=== PATIENT | female | born 1970 | race Caucasian/White ===

== ENCOUNTER 2018-09-02 14:58 | Emergency (ER) | payer MEDICAID, SELFPAY ==
[2018-09-02 15:15] VITALS: BP 137/78; PULSE 80; RESP 20; TEMP 37; O2SAT 97
[2018-09-02 15:48] VITALS: RESP 18
--- NOTE | 2018-09-02 16:22 | ED.GENADUL_ITS ---
Discharge Plan Disposition Patient Disposition: AGAINST MEDICAL ADVICE Condition: Stable Discharge Details Chief Complaint: GenMedical Clinical Impression: Hyperglycemia, Bronchitis, URI (upper respiratory infection) Primary Care Provider: Marni Doan ED Provider: Mayi Todd Home Meds and New Rx's Prescriptions: New doxycycline hyclate 100 mg capsule 100 mg PO BID 7 Days Qty: 14 RF: 0 blood-glucose meter [FreeStyle Lite Meter] kit .ROUTE .MEDSUPPLY Qty: 1 RF: 0 Continue epinephrine [EpiPen 2-Tejinder] 0.3 MG/0.3 ML auto-injector 0.3 mg IM ONCE Qty: 1 RF: 1 albuterol sulfate 2.5 MG/3 ML solution for nebulization 2.5 mg Inhalation TID PRNQty: 100 RF: 2 insulin aspart U-100 [Novolog Flexpen U-100 Insulin] 100 unit/mL insulin pen 5 unit subcut TID Qty: 2 RF: 2 insulin glargine [Lantus Solostar U-100 Insulin] 100 unit/mL (3 mL) insulin pen 38 unit subcut HS Qty: 2 RF: 2 lancets [FreeStyle Lancets] 28 gauge misc 1 ea Miscellaneous QID Qty: 100 RF: 4 omeprazole 20 mg capsule,delayed release(DR/EC) 20 mg PO DAILY Qty: 30 RF: 1 pen needle, diabetic 31 gauge x 1/3 needle 1 ea Miscellaneous QID Qty: 100 RF: 2 blood sugar diagnostic [Blood Glucose Test] strip 1 ea Miscellaneous qid and PRNQty: 400 RF: 4 acetaminophen [Tylenol] 325 MG tablet 650 mg PO PRN PRNRF: 0 methadone 10 MG/ML concentrate 60 mg PO DAILY RF: 0 fluticasone [Flonase Allergy Relief] 9.9 ML spray,suspension 9.9 ml NS DAILY Qty: 1 RF: 0 promethazine 25 MG tablet 25 mg PO Q6H PRNQty: 10 RF: 0 Discharge Instructions Instructions: Upper Respiratory Infection (ED), Acute Bronchitis (ED), Diabetic Hyperglycemia (ED) Additional Instructions: You are leaving against medical advice. You can from complications related to very high blood sugar. You need to drink plenty of water and take your diabetes medications and check your sugar regularly. Take the antibiotics until finished. Use the inhaler as needed and directed. Call your primary doctor tomorrow to schedule a follow up appointment for re- evaluation. Return immediately to the emergency department with any worsening or new concerning symptoms. Discharge Data Discharge Date/Time-TO BE ENTERED AT DEPARTURE: 09/02/18 17:03 Discharge Physician: Mayi Todd Medical Decision Making 48-year-old female with history of diabetes type 2, COPD, schizophrenia, previous narcotic and opiate use on methadone who presents for sore throat for 2 days, cough with green sputum, and difficulty concentrating and fatigue. Male friend concerned about patient's blood sugar and states it was 400 the other day. Patient states she lost her glucometer. Will check an Accu-Chek. Rapid strep negative. Fingerstick glucose 527. Vitals within normal limits. Discussed with patient that due to her high blood sugar, would recommend IV, IV fluids, labs, urinalysis. Patient is refusing this at this time and would like to go home. The risks of and disability due to DKA or HHS explained to patient and she fully understands and would still like to leave. Pt demonstrates capacity to make decisions and appears clinically sober at this time. Patient is declining any meds, labs or imaging. Patient states she would like antibiotics for her symptoms and specifically doxycycline. She states she also ran out of her inhaler. Dose of doxycycline and inhaler given for home as well as prescription for doxycycline and a new glucometer. Patient instructed to follow-up with her primary care doctor for reevaluation in the next 2 days and to return here immediately with any worsening symptoms. HPI General Mode of arrival: ambulatory . Date/Time Provider Initiated Documentation: 09/02/18 15:20 . Limitations to Documentation: no limitations . Information obtained by: patient . HPI Narrative: Pt is a 48-year-old female with a history of diabetes, COPD, schizophrenia, anxiety, depression and previous narcotic and opiate drug use, currently on methadone who presents to the ED with a complaint of sore throat for 2 days. Also complaining of difficulty thinking for 2-3 weeks, and generalized weakness over the past 2 days. Admits to pain with swallowing. Patient denies any fever and states she has been drinking normally but eating less than usual. She has been taking Motrin, Tylenol and aspirin for pain. She also admits to cough with green sputum. She states her last admission to the hospital was 3 months ago for DKA and subsequently she has had short-term memory loss since then. Her male friend also stated he was concerned about her sugar as it is usually in the 150s and was 400 on Sunday. Related Data Home Medications Medication Instructions Recorded Confirmed epinephrine [EpiPen 2-Tejinder] 0.3 mg IM ONCE #1 pen 04/01/13 acetaminophen [Tylenol] 650 mg PO PRN PRN 04/16/15 01/29/18 methadone 60 mg PO DAILY 06/09/15 01/29/18 albuterol sulfate 2.5 mg INHALATION TID PRN #100 vial 12/28/16 fluticasone [Flonase Allergy 9.9 ml NS DAILY #1 spray.susp 12/17/17 01/29/18 Relief] promethazine 25 mg PO Q6H PRN #10 tab 01/29/18 insulin aspart U-100 100 unit/mL 5 unit SUBCUT TID #2 box 06/14/18 subcutaneous pen insulin glargine (U-100) 100 38 unit SUBCUT HS #2 box 06/14/18 unit/mL (3 mL) subcutaneous pen blood sugar diagnostic strips #400 strip 08/30/18 lancets 28 gauge #100 each 08/30/18 omeprazole 20 mg capsule,delayed 20 mg PO DAILY #30 cap 08/30/18 release pen needle, diabetic 31 gauge x #100 ea 08/30/1809/26 blood-glucose meter [FreeStyle #1 each 09/02/18 Lite Meter kit] doxycycline hyclate 100 mg PO BID 7 Days #14 cap 09/02/18 Previous Rx's Medication Instructions Recorded fluticasone [Flonase Allergy 9.9 ml NS DAILY #1 spray.susp 12/17/17 Relief] promethazine 25 mg PO Q6H PRN #10 tab 01/29/18 insulin aspart U-100 100 unit/mL 5 unit SUBCUT TID #2 box 06/14/18 subcutaneous pen insulin glargine (U-100) 100 38 unit SUBCUT HS #2 box 06/14/18 unit/mL (3 mL) subcutaneous pen blood sugar diagnostic strips #400 strip 08/30/18 lancets 28 gauge #100 each 08/30/18 omeprazole 20 mg capsule,delayed 20 mg PO DAILY #30 cap 08/30/18 release pen needle, diabetic 31 gauge x #100 ea 08/30/18 1/3 blood-glucose meter [FreeStyle #1 each 09/02/18 Lite Meter kit] doxycycline hyclate 100 mg PO BID 7 Days #14 cap 09/02/18 Allergies Allergy/AdvReac Type Severity Reaction Status Date / Time venom-honey bee Allergy Intermediate Unverified 01/29/18 02:27 [bee venom (honey bee)] Sulfa (Sulfonamide Allergy Rash & Unverified 01/29/18 02:27 Antibiotics) Shortness of Breath hydroxyzine HCl AdvReac Intermediate nausea/vomiting, Unverified 01/29/18 02:27 [From Vistaril] palpitations General Stated Complaint: GenMedical LAURIE: 3 Review of Systems Review of Systems All systems reviewed & are unremarkable except as noted in HPI and below Constitutional Reports as per HPI, Denies chills, Reports fatigue, Denies fever(s) and Reports weakness Eyes Denies blurry vision ENT Denies dizziness, Reports sore throat and Denies throat swelling Cardiovascular Denies chest pain and Denies dyspnea Respiratory Denies dyspnea Gastrointestinal Denies abdominal pain, Denies diarrhea and Denies vomiting Genitourinary Denies hematuria and Denies dysuria Musculoskeletal Denies back pain and Denies numbness Integumentary/Breasts Denies lesions and Denies rash Neurologic Denies dizziness, Denies numbness and Reports weakness Endocrine Reports fatigue Allergic/Immunologic Denies throat swelling PFSH Hyperlipemia (Acute) PTSD (post-traumatic stress disorder) (Acute) Anxiety (Chronic) COPD (chronic obstructive pulmonary disease) (Chronic) Depression (Chronic) Diabetes (Chronic) Schizophrenia (Chronic) Medical History Hyperlipemia (Acute) PTSD (post-traumatic stress disorder) (Acute) Anxiety (Chronic) COPD (chronic obstructive pulmonary disease) (Chronic) Depression (Chronic) Diabetes (Chronic) Schizophrenia (Chronic) Social History Smoking/Tobacco Use Status: Current every day Social History Smoking/Tobacco Use Status: Current every day alcohol intake: current alcohol intake frequency: 3 or more drinks per day substance use type: crack/cocaine and heroin Exam Const General: cooperative and no acute distress Orientation: alert, awake and oriented x3 HENMT Head: normal to inspection Ears: hearing grossly normal bilaterally, external ears normal and TM's normal bilaterally General nose exam: external nose normal Face and sinus: normal facial exam Mouth: oral mucosae normal Teeth and gingiva: dentition normal Throat: posterior oropharynx normal Eyes General: appearance normal, both eyes and all related structures Eyelids: eyelids normal Pupils: PERRL EOM: EOM intact bilaterally Neck Neck: normal visual inspection Lymphatic: no lymphadenopathy noted Chest Chest: normal inspection of the chest Resp Effort & Inspection: normal respiratory effort and able to speak in complete sentences Auscultation: clear to auscultation bilaterally Cardio Rate: regular rate Rhythm: regular rhythm GI Inspection: normal to inspection Palpation: soft, not firm, no guarding, no hepatosplenomegaly, no masses and nontender Auscultation: normal bowel sounds Skin General skin exam: no rashes or lesions noted Neuro General: alert and awake Cognition: normal cognition Speech: speech normal Gait: normal gait Motor: muscle tone normal throughout Sensory Exam: no sensory deficits noted Extrem General: normal to inspection, full ROM, normal capillary refill and no edema Psych Appearance: grossly normal Mental Status: mental status grossly normal Speech and Movement: speech and movement normal Affect: normal affect Thought Process: normal Course Vital Signs Temperature 98.6 F 09/02/18 15:15 Pulse 80 09/02/18 15:15 Respiratory Rate 20 09/02/18 15:15 Blood Pressure 137/78 09/02/18 15:15 Pulse Oximetry 97 09/02/18 15:15 Temperature 98.6 F 09/02/18 15:15 Temperature Source Temporal Artery Scan 09/02/18 15:15 Pulse 80 09/02/18 15:15 Respiratory Rate 18 09/02/18 15:48 Respiratory Effort Non-Labored 09/02/18 15:48 Respiratory Depth Normal 09/02/18 15:48 Respiratory Pattern Normal 09/02/18 15:48 Blood Pressure 137/78 09/02/18 15:15 Blood Pressure Position Sitting 09/02/18 15:15 Pulse Oximetry 97 09/02/18 15:15 Pain Level 8 09/02/18 15:15 Lab/Test Results Lab/Test Results: 09/02/18 15:50 Pharynx Streptococcus Screen ([facility]) - Pending POC Strep Test-[facility](Rapid) Start: 09/02/18 15: 50 Freq: Status: Active Protocol: Document 09/02/18 15:50 CDG (Rec: 09/02/18 15:50 CDG [id number]) Strep test-[facility](Rapid)-POC POC-Strep test-[facility] (Rapid) Negative POC-Strep test-[facility] (Rapid) Negative
[2018-09-02] MEDS: Albuterol HFA 8 GM 60 PUFF INH IH (17:00)
[2018-09-02] MEDS: Doxycycline Hyclate 100 MG CAP PO (17:00)
== END 2018-09-02 17:03 | disposition left against medical advice (07) ==
PROVIDERS: Emergency Provider Physician Assistant; PCP Family Medicine
DX: E11.65 Type 2 diabetes mellitus with hyperglycemia (principal); Z79.4 Long term (current) use of insulin; J20.9 Acute bronchitis, unspecified; J06.9 Acute upper respiratory infection, unspecified; Z53.29 Procedure and treatment not carried out because of patient's decision for other reasons; J44.9 Chronic obstructive pulmonary disease, unspecified; F17.210 Nicotine dependence, cigarettes, uncomplicated; E11.9 Type 2 diabetes mellitus without complications
CPT/HCPCS: 36416; 82962; 87880; 99283; 87081

== ENCOUNTER 2018-09-13 09:06 | Outpatient (CLI) | payer MEDICAID, SELFPAY | END 2018-09-13 09:26 | PROVIDERS: PCP Family Medicine; Visit Provider Nurse Practitioner Family | DX: E11.65 Type 2 diabetes mellitus with hyperglycemia (principal); Z79.4 Long term (current) use of insulin | CPT/HCPCS: 36415; 83036 ==

== ENCOUNTER 2018-10-01 07:32 | Emergency (ER) | payer MEDICAID, SELFPAY ==
[2018-10-01 07:42] VITALS: BP 141/90; PULSE 68; RESP 16; TEMP 37; O2SAT 97
--- NOTE | 2018-10-01 09:01 | W.ED.GENAD ---
Discharge Plan Disposition Patient Disposition: HOME Condition: Improving Discharge Details Chief Complaint: PsychEval Clinical Impression: Anxiety, Diabetes mellitus, type II Primary Care Provider: Marni Doan ED Provider: Vincenzo Burns Home Meds and New Rx's Prescriptions: Continued Lantus Solostar U-100 Insulin 100 unit/mL (3 mL) insulin pen 38 unit SC .QHS Qty: 15 RF: 3 Blood Glucose Test strip 1 ea Miscellaneous qid and PRNQty: 400 RF: 4 epinephrine [EpiPen 2-Tejinder] 0.3 MG/0.3 ML auto-injector 0.3 mg IM ONCE Qty: 1 RF: 1 albuterol sulfate 2.5 MG/3 ML solution for nebulization 2.5 mg Inhalation TID PRNQty: 100 RF: 2 Novolog Flexpen U-100 Insulin 100 unit/mL insulin pen 5 unit subcut TID Qty: 2 RF: 2 Lantus Solostar U-100 Insulin 100 unit/mL (3 mL) insulin pen 38 unit subcut HS Qty: 2 RF: 2 lancets [FreeStyle Lancets] 28 gauge misc 1 ea Miscellaneous QID Qty: 100 RF: 4 omeprazole 20 mg capsule,delayed release(DR/EC) 20 mg PO DAILY Qty: 30 RF: 1 pen needle, diabetic 31 gauge x 1/3 needle 1 ea Miscellaneous QID Qty: 100 RF: 2 acetaminophen [Tylenol] 325 MG tablet 650 mg PO PRN PRNRF: 0 methadone 10 MG/ML concentrate 50 mg PO DAILY RF: 0 fluticasone [Flonase Allergy Relief] 9.9 ML spray,suspension 9.9 ml NS DAILY Qty: 1 RF: 0 promethazine 25 MG tablet 25 mg PO Q6H PRNQty: 10 RF: 0 blood-glucose meter [FreeStyle Lite Meter] kit .ROUTE .MEDSUPPLY Qty: 1 RF: 0 Discharge Instructions Instructions: Anxiety (ED) Additional Instructions: Please followup with [facility], [facility] as disucssed with Mrs. Argueta. Return for worsening anxiety or any other concerns. Continue all medications including your prescribed insulin. Your glucose has been well controlled. Medical Decision Making 40-year-old male states she is concerned with the spirits in her home. She is been anxious regarding this over weeks time. She does not feel depressed, she is not a thoughts of hurting herself or hurting others. She is not having command hallucinations. She recently became integrated into the [employer]. She states that when she moved into her new apartment she noticed signs of the occult including skeletons in the [place]. She been taking her medications. Her glucose has been under control. She underwent medical screening examination and was seen by social work in the emergency department and referred to [facility] and [facility]. HPI General Mode of arrival: ambulatory. Date/Time Provider Initiated Documentation: 10/01/18 08:11. Limitations to Documentation: no limitations. Information obtained by: patient. History of Present Illness 48 year old F presents to the emergency department with the chief complaint of Anxiety about returning to home, described as moderate, Quality is described as constant, Patient started experiencing this day(s) and it has been constant. No relieving factors improve symptom(s), No exacerbating factors reported . Patient notes no other symptoms.. Patient did receive the following treatments prior to arrival, none Related Data Home Medications Medication Instructions Recorded Confirmed epinephrine [EpiPen 2-Tejinder] 0.3 mg IM ONCE #1 pen 04/01/13 10/01/18 acetaminophen [Tylenol] 650 mg PO PRN PRN 04/16/15 10/01/18 methadone 50 mg PO DAILY 06/09/15 10/01/18 albuterol sulfate 2.5 mg INHALATION TID PRN #100 vial 12/28/16 10/01/18 fluticasone [Flonase Allergy 9.9 ml NS DAILY #1 spray.susp 12/17/17 10/01/18 Relief] promethazine 25 mg PO Q6H PRN #10 tab 01/29/18 10/01/18 insulin aspart U- 100 100 unit/mL 5 unit SUBCUT TID #2 box 06/14/18 10/01/18 subcutaneous pen insulin glargine (U-100) 100 38 unit SUBCUT HS #2 box 06/14/18 10/01/18 unit/mL (3 mL) subcutaneous pen lancets 28 gauge #100 each 08/30/18 omeprazole 20 mg capsule,delayed 20 mg PO DAILY #30 cap 08/30/18 10/01/18 release pen needle, diabetic 31 gauge x #100 ea 08/30/1809/26 blood-glucose meter [FreeStyle #1 each 09/02/18 Lite Meter] blood sugar diagnostic strips #400 strip 09/13/18 09/13/18 insulin glargine (U-100) 100 38 unit SC .QHS #15 ml 09/13/18 10/01/18 unit/mL (3 mL) subcutaneous pen Previous Rx's Medication Instructions Recorded fluticasone [Flonase Allergy 9.9 ml NS DAILY #1 spray.susp 12/17/17 Relief] promethazine 25 mg PO Q6H PRN #10 tab 01/29/18 insulin aspart U- 100 100 unit/mL 5 unit SUBCUT TID #2 box 06/14/18 subcutaneous pen insulin glargine (U-100) 100 38 unit SUBCUT HS #2 box 06/14/18 unit/mL (3 mL) subcutaneous pen lancets 28 gauge #100 each 08/30/18 omeprazole 20 mg capsule,delayed 20 mg PO DAILY #30 cap 08/30/18 release pen needle, diabetic 31 gauge x #100 ea 08/30/1809/26 blood-glucose meter [FreeStyle #1 each 09/02/18 Lite Meter] blood sugar diagnostic strips #400 strip 09/13/18 insulin glargine (U-100) 100 38 unit SC .QHS #15 ml 09/13/18 unit/mL (3 mL) subcutaneous pen Allergies Allergy/AdvReac Type Severity Reaction Status Date / Time venom-honey bee Allergy Intermediate Unverified 10/01/18 07:47 [bee venom (honey bee)] Sulfa (Sulfonamide Allergy Rash & Unverified 10/01/18 07:47 Antibiotics) Shortness of Breath hydroxyzine HCl AdvReac Intermediate nausea/vomiting, Unverified 10/01/18 07:47 [From Vistaril] palpitations General Stated Complaint: PsychEval LAURIE: 3 Review of Systems Review of Systems 6 systems reviewed and otherwise - [facility] Medical History Hyperlipemia (Acute) PTSD (post-traumatic stress disorder) (Acute) Anxiety (Chronic) COPD (chronic obstructive pulmonary disease) (Chronic) Depression (Chronic) Diabetes (Chronic) Schizophrenia (Chronic) Social History Smoking/Tobacco Use Status: Current every day alcohol intake: current alcohol intake frequency: 3 or more drinks per day substance use type: crack/cocaine and heroin Exam Narrative Exam Narrative: GEN: awake, alert, oriented 3. Pleasant, well groomed, interactive. HEAD: Normocephalic, atraumatic ENT: Mucous membranes moist, oropharynx unremarkable, External ear exam unremarkable EYES: PERRL, EOMI NECK: Full ROM, no REZA, no menigismus CHEST/RESP: Nontender, clear to auscultation bilateral, no wheeze/rhonchi/rales CARDIOVASCULAR: RRR, no murmur, rub bebo. 2+ Rad pulse bilateral ABDOMEN: Soft, nontender, no mass. +Bowel sounds EXT: Full ROM, no edema, no rash Neuro: Grossly normal neurologic exam, conversant, interactive. Psych: Speech fluent, thoughts congruent, affect anxious Course Vital Signs Temperature 37 C 10/01/18 07:42 Pulse 68 10/01/18 07:42 Respiratory Rate 16 10/01/18 07:42 Blood Pressure 141/90 H 10/01/18 07:42 Pulse Oximetry 97 10/01/18 07:42 Temperature 37 C 10/01/18 07:42 Temperature Source Skin 10/01/18 07:42 Pulse 68 10/01/18 07:42 Respiratory Rate 16 10/01/18 07:42 Respiratory Effort 10/01/18 07:42 Blood Pressure 141/90 H 10/01/18 07:42 Blood Pressure Position Sitting 10/01/18 07:42 Pulse Oximetry 97 10/01/18 07:42 Oxygen Delivery Method Room Air 10/01/18 07:42 Oxygen Flow Rate 0 10/01/18 07:42 Pain Level 0 10/01/18 07:42 Lab/Test Results Lab/Test Results: Laboratory Tests Range/Units 10/01/18 08:21 Glucose Cancelled
--- NOTE | 2018-10-01 10:00 | PDOC.ERCMPRO ---
Care Management Progress Note 10/01-Dr. Burns requested assistance with Josefina and housing. Met with Josefina. Josefina states that there are spirits living in her home and that they sometimes get on her head. She has had part of the apartment cleansed but needs to have the whole apartment done. Josefina showed this CM pictures on her phone of the creatures that were on her head at one point. This one has teeth and there is another one right beside it. Josefina shares with this CM that she lost her son in October from an overdose and she is still grieving him. She tears up when she talks about him. Josefina stated that she would like different housing while she is getting her apartment cleansed of the spirits as she is afraid to be there while the spirits are still there. Recommended that Josefina meet with someone at [facility] as well as [facility] for housing assistance. Discussed above with Loree, Chronic Fire Warden at [facility], PCP is Dr. Doan, and she requested that Josefina call [facility] for an appointment with Jonny the Behavioral Health Specialist for which was discussed with Josefina. Josefina was discharged from the ED and headed over to [facility]. Josefina has this CM's contact information if further assistance is needed.
--- NOTE | 2018-10-01 10:33 | CMPROGNOTE_ITS ---
Care Management Progress Note 10/01-Dr. Burns requested assistance with Josefina and housing. Met with Josefina. Josefina states that there are spirits living in her home and that they sometimes get on her head. She has had part of the apartment cleansed but needs to have the whole apartment done. Josefina showed this CM pictures on her phone of the creatures that were on her head at one point. This one has teeth and there is another one right beside it. Josefina shares with this CM that she lost her son in October from an overdose and she is still grieving him. She tears up when she talks about him. Josefina stated that she would like different housing while she is getting her apartment cleansed of the spirits as she is afraid to be there while the spirits are still there. Recommended that Josefina meet with someone at [facility] as well as [facility] for housing assistance. Discussed above with Loree, Chronic Food And Beverage Server at [facility], PCP is Dr. Doan, and she requested that Josefina call [facility] for an appointment with Jonny the Behavioral Health Specialist for which was discussed with Josefina. Josefina was discharged from the ED and headed over to [facility]. Josefina has this CM's contact information if further assistance is needed.
== END 2018-10-01 09:41 | disposition home or self-care (01) ==
PROVIDERS: Emergency Provider Emergency Medicine; PCP Family Medicine
DX: F41.9 Anxiety disorder, unspecified (principal); E11.9 Type 2 diabetes mellitus without complications; J44.9 Chronic obstructive pulmonary disease, unspecified; F17.210 Nicotine dependence, cigarettes, uncomplicated
CPT/HCPCS: 36416; 82947; 82962; 99282

== ENCOUNTER 2018-10-16 11:27 | Outpatient (CLI) | payer MEDICAID, SELFPAY ==
[2018-10-16 13:38] LABS: ALT 22 U/L (12-78); AST 20 U/L (15-37); Albumin 3.1 g/dL (3.4-5.0); Alkaline Phosphatase 83 U/L (46-116); Anion Gap 6.1 mmol/L (3-11); BUN 13 mg/dL (7-18); Bilirubin, Total 0.4 mg/dL (0.2-1.0); CO2 32.9 mmol/L (21.0-32.0); CREATININE 0.93 mg/dL (0.55-1.02); Calcium 9.1 mg/dL (8.5-10.1); Chloride 100 mmol/L (98-107); Cholesterol 258 mg/dL (50-200); Glucose 325 mg/dL (70-100); HDL Cholesterol 42 mg/dL (40-60); LDL CHOLESTEROL 154 mg/dL (<100); Potassium 4.5 mmol/L (3.5-5.1); Sodium 139 mmol/L (136-145); Total Protein 6.6 g/dL (6.4-8.2); Triglyceride 331 mg/dL (30-150)
[2018-10-16 13:50] LABS: Hemoglobin A1C 11.4 % (4.5-6.2)
[2018-10-16 13:52] LABS: COMMENT (LAB VIEW ONLY) 95.91 mg/dL; Microalb ug/mg Crea 11.8 ug/mg Cr
== END 2018-10-16 11:47 ==
PROVIDERS: PCP Family Medicine; Visit Provider Family Medicine
DX: E11.9 Type 2 diabetes mellitus without complications (principal); Z79.4 Long term (current) use of insulin
CPT/HCPCS: 36415; 80053; 80061; 83721; 82043; 82570; 83036

== ENCOUNTER 2018-10-26 07:33 | Emergency (ER) | payer MEDICAID, SELFPAY ==
[2018-10-26 07:24] VITALS: BP 163/97; PULSE 66; RESP 18; TEMP 36.6; O2SAT 95
--- NOTE | 2018-10-26 07:33 | DI.CT_ITS ---
SYMPTOM/DIAGNOSIS: ABD PAIN, NAUSEA, VOMITING ABDOMEN AND PELVIC CT: There are no prior comparison exams. Images were performed from the lung bases through the ischial tuberosities after IV and without oral contrast. The lung bases are clear. The liver, gallbladder, spleen, adrenals and kidneys are unremarkable. The pancreas is extremely atrophic. There is mild dilatation of the common bile duct at 10 mm. No obstructing stone or mass is seen. There is a moderate quantity of stool. There is question of wall thickening of the rectum focally versus contraction. The bladder, uterus and ovaries are unremarkable. There is no small bowel dilatation. Muscular atrophy is seen involving the abdominal wall as well as paraspinal and gluteal musculature. There is a fatty containing hernia just above the umbilicus. The aorta is normal in diameter. IMPRESSION: Fatty containing umbilical hernia. Mild dilatation of the common bile duct.
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
[2018-10-26 07:58] LABS: HCO3 (Venous) 33 mmol/L (22-28); O2 Sat (Venous) 41 % (70-80); TCO2 (Venous) 30 mmol/L (22-29); pCO2 (Venous) 63 mm/Hg (34-47); pH (Venous) 7.33 (7.32-7.43); pO2 (Venous) 24 mm/Hg (28-44)
[2018-10-26 08:03] LABS: Absolute Basophil Count 0.01 k/cumm (0.0-0.2); Absolute Eosinophil Count 0.09 k/cumm (0.0-0.7); Absolute Lymphocyte Count 1.47 k/cumm (1.2-3.4); Absolute Monocyte Count 0.24 k/cumm (0.11-0.7); Absolute Neutrophil Count 2.34 k/cumm (1.2-6.7); Basophils % 0.2; Eosinophils % 2.2; HCT 43.7 % (36.0-46.0); HGB 14.3 g/dL (12.0-15.5); Lymphocytes % 35.4; Mean Corp. HGB Concentration 32.7 g/dL (32.0-36.0); Mean Corpuscular Hemoglobin 27.4 pg (27.0-33.0); Mean Corpuscular Volume 83.9 fL (80-95); Mean Platelet Volume 9.8 fL (8.0-11.0); Monocytes % 5.8; Neutrophils % 56.4; Platelet Count 268 x1000/uL (130-400); RBC 5.21 m/cumm (4.00-5.20); RBC Distribution Width 14.1 % (11.7-14.6); White Blood Cell Count 4.15 k/cumm (4.4-10.8)
[2018-10-26 08:27] LABS: Bilirubin Negative (Negative); Blood Negative (Negative); Clarity Clear; Glucose 250 mg/dL (Negative); Ketones 15 mg/dL (Negative); Leukocyte Esterase Negative (Negative); Nitrite Negative (Negative); Specific Gravity 1.015 (1.005-1.025); pH 7.5 (5-8)
[2018-10-26 08:31] LABS: ALT 22 U/L (12-78); AST 23 U/L (15-37); Albumin 3.8 g/dL (3.4-5.0); Alkaline Phosphatase 86 U/L (46-116); Anion Gap 7.8 mmol/L (3-11); BUN 12 mg/dL (7-18); Bilirubin, Direct 0.25 mg/dL (0.00-0.20); Bilirubin, Total 1.2 mg/dL (0.2-1.0); CO2 32.2 mmol/L (21.0-32.0); CREATININE 0.92 mg/dL (0.55-1.02); Calcium 9.4 mg/dL (8.5-10.1); Chloride 100 mmol/L (98-107); Glucose 191 mg/dL (70-100); Lipase 48 U/L (73-393); Magnesium 1.7 mg/dL (1.8-2.4); Potassium 3.5 mmol/L (3.5-5.1); Sodium 140 mmol/L (136-145); Total Protein 8.1 g/dL (6.4-8.2)
[2018-10-26] MEDS: Normal Saline Flush 10 ML SYR IVP (08:33)
[2018-10-26] MEDS: Ondansetron 4 MG/2 ML VIAL IVP (08:33)
[2018-10-26] MEDS: Normal Saline 1,000 ML 1000 ML IV (08:33)
--- NOTE | 2018-10-26 08:38 | NUR.NOTE ---
hand stemmer in to see pt as she requested Nursing Note:
[2018-10-26 08:56] LABS: INR 0.9 (0.9-1.1); PTT Activated 21.2 sec (21.0-31.4); Prothrombin Time 9.3 sec (9.3-11.0)
[2018-10-26] MEDS: Omnipaque 350 MG/ML 100 ML BTL IJ (09:26)
--- NOTE | 2018-10-26 09:38 | DI.VRAD_ITS ---
EXAM: CT Abdomen and Pelvis With Contrast EXAM DATE/TIME: 10/26/2018 7:34 AM CLINICAL HISTORY: 48 years old, female; Pain and signs and symptoms; Nausea and vomiting; Abdominal pain TECHNIQUE: Axial computed tomography images of the abdomen and pelvis with intravenous contrast. Coronal and sagittal reformatted images were created and reviewed. COMPARISON: No relevant prior studies available. FINDINGS: Lower thorax: Right basilar atelectasis ABDOMEN: Liver: Normal. No mass. Gallbladder and bile ducts: The common duct is prominent. It measures 10-11 millimeters. If biliary obstruction is suspected clinically, recommend further evaluation. Pancreas: Significant Pancreatic atrophy Spleen: Normal. No splenomegaly. Adrenals: Normal. No mass. Kidneys and ureters: Normal. No hydronephrosis. Stomach and bowel: Bowel wall thickening in the rectum may indicate inflammation, infection, or neoplasm. 15 mm in width. The lumen is narrowed to 5 mm. (4:83). Findings consistent with constipation. Appendix: Normal appendix PELVIS: Bladder: Unremarkable as visualized. Reproductive: Unremarkable as visualized. ABDOMEN and PELVIS: Intraperitoneal space: Normal. No free air. No significant fluid collection. Bones/joints: No acute fracture. No dislocation. Soft tissues: Ventral hernia contains inflamed fat and may be incarcerated. No bowel. Vasculature: Normal. No abdominal aortic aneurysm. Lymph nodes: Normal. No enlarged lymph nodes. IMPRESSION: 1. Bowel wall thickening in the rectum may indicate inflammation, infection, or neoplasm. 15 mm in width. The lumen is narrowed to 5 mm. (4:83). 2. Ventral hernia contains inflamed fat and may be incarcerated. No bowel. 3. The common duct is prominent. It measures 10-11 millimeters. If biliary obstruction is suspected clinically, recommend further evaluation. Dictated and Authenticated by: Mario Willoughby MD. Ordering:ENA Tran MD
[2018-10-26] MEDS: Methadone Liquid 10 MG/ML 50 MG PO (09:45)
[2018-10-26 12:15] VITALS: BP 152/90; PULSE 90; RESP 18; TEMP 36.6; O2SAT 95
[2018-10-28 15:12] LABS: Chlamydia Result Negative; GC Result Negative
== END 2018-10-26 14:24 | disposition home or self-care (01) ==
PROVIDERS: Emergency Medicine; Emergency Provider Physician Assistant; PCP Family Medicine
DX: R11.2 Nausea with vomiting, unspecified; N76.0 Acute vaginitis; K63.89 Other specified diseases of intestine; K43.9 Ventral hernia without obstruction or gangrene; R44.3 Hallucinations, unspecified; E11.9 Type 2 diabetes mellitus without complications; Z79.4 Long term (current) use of insulin; Z79.891 Long term (current) use of opiate analgesic; E13.9 Other specified diabetes mellitus without complications
CPT/HCPCS: 36415; 80053; 80076; 82805; 83690; 87491; 87591; 96361; 96374; 99284; 74177; 81003; 83735; 85025; 85610; 85730; 87480; 87510; 87660; J2405; J3490

== ENCOUNTER 2018-12-16 19:40 | Emergency (ER) | payer MEDICAID, SELFPAY ==
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
[2018-12-16 19:48] VITALS: BP 174/113; PULSE 87; RESP 16; TEMP 36.5; O2SAT 100
[2018-12-16 20:11] LABS: Abs Immature Grans 0.01 k/cumm (0.0-0.09); Absolute Basophil Count 0.01 k/cumm (0.0-0.2); Absolute Eosinophil Count 0.07 k/cumm (0.0-0.7); Absolute Lymphocyte Count 1.98 k/cumm (1.2-3.4); Absolute Monocyte Count 0.37 k/cumm (0.11-0.7); Absolute Neutrophil Count 2.69 k/cumm (1.2-6.7); Basophils % 0.2; Eosinophils % 1.4; HGB 14.7 g/dL (12.0-15.5); Immature Grans % 0.2; Lymphocytes % 38.6; Mean Corp. HGB Concentration 33.4 g/dL (32.0-36.0); Mean Corpuscular Hemoglobin 28.3 pg (27.0-33.0); Mean Corpuscular Volume 84.8 fL (80-95); Mean Platelet Volume 8.9 fL (8.0-11.0); Monocytes % 7.2; Neutrophils % 52.4; Platelet Count 275 x1000/uL (130-400); RBC 5.19 m/cumm (4.00-5.20); RBC Distribution Width 14.2 % (11.7-14.6); White Blood Cell Count 5.13 k/cumm (4.4-10.8)
[2018-12-16 20:33] LABS: Bilirubin Negative (Negative); Blood Trace-intact (Negative); Clarity Clear; Glucose 500 mg/dL (Negative); Ketones Negative (Negative); Leukocyte Esterase Negative (Negative); Nitrite Negative (Negative); Urobilinogen 0.2 EU/dL (Up TO 0.2)
[2018-12-16 20:40] LABS: Bacteria Few HPF (Negative); C & S Indicated? No; Casts Negative LPF (Negative); Crystals Negative HPF (Negative); Epithelial Cells Few HPF (Negative); Mucus Negative (Negative); Other Cells Negative (Negative); WBC Negative HPF (0-5)
[2018-12-16 20:40] LABS: ALT 18 U/L (12-78); AST 14 U/L (15-37); Albumin 3.7 g/dL (3.4-5.0); Alkaline Phosphatase 78 U/L (46-116); Anion Gap 13.2 mmol/L (3-11); BUN 5 mg/dL (7-18); Bilirubin, Total 0.6 mg/dL (0.2-1.0); CO2 25.8 mmol/L (21.0-32.0); CREATININE 0.89 mg/dL (0.55-1.02); Calcium 9.1 mg/dL (8.5-10.1); Chloride 98 mmol/L (98-107); Glucose 327 mg/dL (70-100); Potassium 3.3 mmol/L (3.5-5.1); Sodium 137 mmol/L (136-145); TSH (W/Ref FT4) 4.04 uIU/mL (0.358-3.74); Total Protein 7.5 g/dL (6.4-8.2)
[2018-12-16 20:44] LABS: Salicylate 3.3 mg/dL (2.8-20.0)
[2018-12-16 20:49] LABS: ETHANOL BLOOD < 3.0 mg/dL (<3)
[2018-12-16 20:50] LABS: Acetaminophen < 2 ug/mL (10-30)
[2018-12-16 21:03] LABS: FREE T4 1.03 ng/dL (0.76-1.46)
[2018-12-16 21:07] LABS: *AMPHETAMINES SCREEN URINE Negative (Negative); *BARBITURATES SCREEN URINE Negative (Negative); *BENZODIAZEPINES SCREEN URINE Negative (Negative); Cannabinoids THC Negative (Negative); Cocaine Screen,Urine Negative (Negative); METHADONE URINE SCREEN POSITIVE (Negative); OPIATES URINE SCREEN Negative (Negative)
[2018-12-16 21:12] LABS: Tricyclic Antidepressants Negative (Negative)
--- NOTE | 2018-12-16 23:11 | PDOC.MHCN ---
Date of service: 12/16/18 Time of Service: 23:12 Mental Health Crisis Note Presenting Issue How did you arrive at the ED and why did you come: The patient is a 48 yo female, she was brought to the ER by ambulance. She said that she has snakes in her belly and she wants them out. She came in so that the doctor could take them out. She does not feel she is in need of a mental health evaluation. Precipitating Factors The patient states that some time ago a spiritual animal, maybe a bird, put snakes in her belly and she has one in her crotch. She feels these are evil demons inside her and put there because she has led an evil life. She is freely talking about these snakes and even though she knows that people think she is crazy she insists she is not. She will not sign paperwork for [facility] because she said if she signs anything then we can put her in a loony bin. She is homeless at the moment but is not a danger to herself, She was asked if she would try to remove these demon snakes by any means and she said no, emphatically. She feels she can throw them up or that the doctor can help her get them out. She does not want to harm anyone else. This thinking is delusional , it does not seem that she is acutely psychotic. Her thinking is clear and organized . She does not take offense at the thought that others think she is crazy. She has tried by prayer and other spiritual means to get rid of these snakes. She has found information on the internet that corroborates her thinking that this could have happened to her. Disposition BEHAVIOR: Her behavior is cooperative, friendly , and attentive. EYE CONTACT: She makes good eye contact AFFECT: Her affect is expressive of mood. She says she is anxious . APPETITE: She is afraid to eat , she thinks that she needs to starve the snakes and that will help to get rid of them. SLEEP(trouble falling/staying asleep: She has not been able to sleep for a few days. Plan At first it was thought that she was experience acute psychosis and the doctor on the ER thought she should be involuntarily placed in a psychiatric facility. A [facility] [[email or web address] was contacted and Antionette Storey came to assess this patient. The conclusion is that she does not meet EE criteria. She will need to make some connections to [facility] and they can help with housing. She has been given contact information as we will talk with her if she wants. She does not want us to reach out. Signature Clinician's Name/Title: Amber Yost [facility] Emergency Services Clinician
[2018-12-16] MEDS: Acetaminophen 325 MG TAB 650 MG PO (23:18)
--- NOTE | 2018-12-16 23:59 | PDOC.MHCN_ITS ---
Date of service: 12/16/18 Time of Service: 23:12 Mental Health Crisis Note Presenting Issue How did you arrive at the ED and why did you come: The patient is a 48 yo female, she was brought to the ER by ambulance. She said that she has snakes in her belly and she wants them out. She came in so that the doctor could take them out. She does not feel she is in need of a mental health evaluation. Precipitating Factors The patient states that some time ago a spiritual animal, maybe a bird, put snakes in her belly and she has one in her crotch. She feels these are evil demons inside her and put there because she has led an evil life. She is freely talking about these snakes and even though she knows that people think she is crazy she insists she is not. She will not sign paperwork for [facility] because she said if she signs anything then we can put her in a loony bin. She is homeless at the moment but is not a danger to herself, She was asked if she would try to remove these demon snakes by any means and she said no, emphatically. She feels she can throw them up or that the doctor can help her get them out. She does not want to harm anyone else. This thinking is delusional , it does not seem that she is acutely psychotic. Her thinking is clear and organized . She does not take offense at the thought that others think she is crazy. She has tried by prayer and other spiritual means to get rid of these snakes. She has found information on the internet that corroborates her thinking that this could have happened to her. Disposition BEHAVIOR: Her behavior is cooperative, friendly , and attentive. EYE CONTACT: She makes good eye contact AFFECT: Her affect is expressive of mood. She says she is anxious . APPETITE: She is afraid to eat , she thinks that she needs to starve the snakes and that will help to get rid of them. SLEEP(trouble falling/staying asleep: She has not been able to sleep for a few days. Plan At first it was thought that she was experience acute psychosis and the doctor on the ER thought she should be involuntarily placed in a psychiatric facility. [facility] was contacted and Antionette Storey came to assess this patient. The conclusion is that she does not meet EE criteria. She will need to make some connections to [facility] and they can help with housing. She has been given contact information as we will talk with her if she wants. She does not want us to reach out. Signature Clinician's Name/Title: Amber Yost [facility] Emergency Services Clinician
[2018-12-17] MEDS: LORazepam 1 MG TAB PO (00:31)
[2018-12-17 00:44] VITALS: BP 139/96; PULSE 70; RESP 18; O2SAT 99
== END 2018-12-17 00:45 | disposition home or self-care (01) ==
PROVIDERS: Student in an Organized Health Care Education/Training Program; Emergency Provider Emergency Medicine; PCP Family Medicine
DX: F22 Delusional disorders (principal); R44.2 Other hallucinations; F41.8 Other specified anxiety disorders; E11.9 Type 2 diabetes mellitus without complications; Z79.4 Long term (current) use of insulin; J44.9 Chronic obstructive pulmonary disease, unspecified; Z87.891 Personal history of nicotine dependence
CPT/HCPCS: 36415; 80053; 80307; 81025; 99284; 80320; 80329; 81003; 81015; 84439; 84443; 85025

== ENCOUNTER 2019-03-27 19:14 | Inpatient (IN) | payer MEDICAID, SELFPAY ==
[2019-03-27] VITALS (48 sets, daily range): BP systolic 99–140; BP diastolic 60–97; PULSE 66–95; RESP 18–26; TEMP 36.8; O2SAT 67–100
[2019-03-27] MEDS: Normal Saline 1,000 ML 1000 ML IV ×2 (20:07→21:50)
[2019-03-27] MEDS: Ondansetron 4 MG/2 ML VIAL IVP (20:17)
[2019-03-27] MEDS: Insulin REGULAR-Human 100 UNITS/ML UNIT 15 UNITS SC (20:17)
--- NOTE | 2019-03-27 20:17 | W.ED.GENAD ---
Discharge Plan Disposition Patient Disposition: [facility] INPATIENT Condition: Improving Discharge Details Chief Complaint: GenMedical Clinical Impression: History of medication noncompliance, Acute hyperglycemia, Hernia, umbilical, Abdominal pain, Chest pain, Schizophrenia Primary Care Provider: Marni Doan ED Provider: Luis A Owusu Home Meds and New Rx's Prescriptions: No Action epinephrine [EpiPen 2-Tejinder] 0.3 MG/0.3 ML auto-injector 0.3 mg IM ONCE Qty: 1 RF: 1 albuterol sulfate 2.5 MG/3 ML solution for nebulization 2.5 mg Inhalation TID PRNQty: 100 RF: 2 Novolog Flexpen U-100 Insulin 100 unit/mL insulin pen 5 unit subcut TID Qty: 2 RF: 2 lancets [FreeStyle Lancets] 28 gauge misc 1 ea Miscellaneous QID Qty: 100 RF: 4 omeprazole 20 mg capsule,delayed release(DR/EC) 20 mg PO DAILY Qty: 30 RF: 3 insulin glargine 100 unit/mL (3 mL) insulin pen 38 unit SC QHS Qty: 15 RF: 0 pen needle, diabetic 31 gauge x 1/3 needle 1 ea Miscellaneous QID Qty: 100 RF: 2 Blood Glucose Test strip 1 ea Miscellaneous qid and PRN (Reason: E11.649) Qty: 400 RF: 4 acetaminophen [Tylenol] 325 MG tablet 650 mg PO PRN PRNRF: 0 methadone 10 MG/ML concentrate 50 mg PO DAILY RF: 0 blood-glucose meter [FreeStyle Lite Meter] kit .ROUTE .MEDSUPPLY Qty: 1 RF: 0 lancets [Lancets, Super Thin] misc .ROUTE .MEDSUPPLY Qty: 50 RF: 0 insulin aspart U-100 100 unit/mL insulin pen 5 unit SC TID Qty: 15 RF: 0 Medical Decision Making This is a 48-year-old female with a past medical history of anxiety, schizophrenia with hyper church thoughts, who presents today for complaint of chest pain, shortness of breath, abdominal pain and vomiting. She is not taking any of her insulin for the last 5 days. She states that she has been drinking some since then though. She is notably poor historian. Bedside exam demonstrates abdominal tenderness throughout, clear lungs, no focal neurologic deficits. She has no history of myocardial infarction. EKG demonstrates inverted T waves through V1 through V6, however no ST elevations or depressions. Troponin is normal, laboratory work-up demonstrates notably elevated glucose at 612, subcu insulin was given but this is shown no improvement, IV insulin drip will be started at 6 units/h. Lactate is notably elevated at 4.1, this may be secondary to starvation ketosis, severe dehydration, or potential but less likely infectious etiology. Mesenteric ischemia is on the differential but seems unlikely as she has no history of A. fib, and EKG is otherwise unremarkable in regards to rhythm. There is been a notable delay for imaging, as we have had multiple polytrauma's all presenting at the same time as the current patient. We are still waiting on CTA of the chest and CT with contrast of the abdomen pelvis. We will continue to aggressively rehydrate. 12:20 AM Remainder the patient's laboratory work-up is returned, VBG shows no evidence of acidosis. Insulin drip has been stopped, blood sugar has notably improved. There is notable delay in CT imaging secondary to patient volume in the ED. CT scan eventually did return and shows no evidence of acute process in the chest, no evidence of PE. Abdomen and pelvis does demonstrate a small umbilical hernia with some irritation, there is no evidence of bowel contents, but instead merely a fat-containing hernia. Repeat exam demonstrates mild tenderness in this area, no evidence of an acute surgical abdomen though. No pain out of proportion, redness erythema or warmth. Signs and symptoms at this time clinically appear inconsistent with a strangulated hernia. I suspect this more likely merely incarcerated. Repeat lactate has dropped precipitously to 0.9. The patient's mental status is notably improved after the Ativan, and she is no longer complaining about the demons in her belly. Troponin normal. Electrolytes within normal limits. VBG stable. I did contact the surgeon Dr. Damian and discussed the case with her. This time clinically after discussion of the case the patient's symptoms she to sees no signs for emergent surgical intervention, however she would like to reassess the patient in the morning as consult. He has the patient's notable noncompliance, significant hyperglycemia, and multitude of other various issues I feel that she would benefit from inpatient stay, continued correction of her blood sugars, additional resources at home, and surgical eval in the morning on a nonemergent basis. I discussed the case with Dr. Manzo, he agrees with the assessment and plan. I have extensively reviewed the treatment plan and discharge instructions with the patient. I have addressed all patient concerns at this time. The patient was made aware of what symptoms to monitor for that would warrant a return to the emergency department. Discussed the plan with the patient, they demonstrate verbal understanding and agreement with our assessment and plan at this time. EKG 20: 19 Rate 80, sinus rhythm, intervals normal, no significant ST elevations or depressions. Diffusely inverted T waves V1 through V6 which does appear to be new compared to prior EKG on 01/29/2018. No significant ST elevations or depressions. Q waves present in lead III. FINDINGS: Pulmonary arteries: Normal. No pulmonary emboli. Aorta: Unremarkable. No aortic aneurysm. No aortic dissection. Lungs: Basilar dependent pulmonary atelectasis is present. Pleural space: Unremarkable. No pneumothorax. No pleural effusion. Heart: Unremarkable. No cardiomegaly. No pericardial effusion. Lymph nodes: Unremarkable. No enlarged lymph nodes. Bones/joints: Unremarkable. No acute fracture. Soft tissues: Unremarkable. IMPRESSION: No acute finding IMPRESSION: 1. Region hernia contains fat and a small amount of inflammation. Would recommend clinical correlation to assess for umbilical tenderness which may reflect incarceration of the fat. 2. Equivocal cystitis. Dictated and Authenticated by: Patrick Goodwin MD. Ordering:KENDRA Gunn MD IMPRESSION: 1. Region hernia contains fat and a small amount of inflammation. Would recommend clinical correlation to assess for umbilical tenderness which may reflect incarceration of the fat. 2. Equivocal cystitis. Dictated and Authenticated by: Patrick Goodwin MD. Ordering:KENDRA Gunn MD HPI General Date/Time Provider Initiated Documentation: 03/27/19 19:37. 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 She is a notably poor historian. She states that there is a demon in her belly she is causing pain in her belly and her chest. As well as some shortness of breath. She denies any arm neck or shoulder pain. She denies any history of myocardial infarction or stroke. She has not taken any of her insulin for the last 5 days. She does admit to vomiting and dry heaving. She denies any hematemesis, hematochezia, melena or acholic stool. She denies any other complaints at this time. She does state that she has been drinking regularly over the last few days. She denies any drug use in the last 3 days. Related Data Home Medications Medication Instructions Recorded Confirmed epinephrine [EpiPen 2-Tejinder] 0.3 mg IM ONCE #1 pen 04/01/13 10/26/18 acetaminophen [Tylenol] 650 mg PO PRN PRN 04/16/15 03/27/19 methadone 50 mg PO DAILY 06/09/15 03/27/19 albuterol sulfate 2.5 mg INHALATION TID PRN #100 vial 12/28/16 03/27/19 insulin aspart U- 100 100 unit/mL 5 unit SUBCUT TID #2 box 06/14/18 03/27/19 subcutaneous pen lancets 28 gauge #100 each 08/30/18 10/16/18 blood-glucose meter [FreeStyle #1 each 09/02/18 10/16/18 Lite Meter] insulin aspart U-100 5 unit SC TID #15 ml 10/26/18 03/27/19 lancets [Lancets, Super Thin] #50 each 10/26/18 omeprazole 20 mg capsule,delayed 20 mg PO DAILY #30 cap 01/03/19 03/27/19 release insulin glargine (U-100) 100 38 unit SC QHS #15 ml 02/13/19 03/27/19 unit/mL (3 mL) subcutaneous pen pen needle, diabetic 31 gauge x #100 ea 02/13/1909/26 blood sugar diagnostic strips #400 strip 02/16/19 Previous Rx's Medication Instructions Recorded insulin aspart U- 100 100 unit/mL 5 unit SUBCUT TID #2 box 06/14/18 subcutaneous pen lancets 28 gauge #100 each 08/30/18 blood-glucose meter [FreeStyle #1 each 09/02/18 Lite Meter] insulin aspart U-100 5 unit SC TID #15 ml 10/26/18 lancets [Lancets, Super Thin] #50 each 10/26/18 omeprazole 20 mg capsule,delayed 20 mg PO DAILY #30 cap 01/03/19 release insulin glargine (U-100) 100 38 unit SC QHS #15 ml 02/13/19 unit/mL (3 mL) subcutaneous pen pen needle, diabetic 31 gauge x #100 ea 02/13/1909/26 blood sugar diagnostic strips #400 strip 02/16/19 Allergies Allergy/AdvReac Type Severity Reaction Status Date / Time venom-honey bee Allergy Intermediate Unverified 02/19/19 15:23 [bee venom (honey bee)] Sulfa (Sulfonamide Allergy Rash & Unverified 02/19/19 15:23 Antibiotics) Shortness of Breath hydroxyzine HCl AdvReac Intermediate nausea/vomiting, Unverified 02/19/19 15:23 [From Vistaril] palpitations General Stated Complaint: GenMedical LAURIE: 3 Review of Systems Review of Systems All systems reviewed & are unremarkable except as noted in HPI and below PFSH Social History Smoking/Tobacco Use Status: Former Tobacco Use Alcohol Intake: current Alcohol Intake frequency: 3 or more drinks per day Drug use: Current Sobriety Substance use type: does not use Do you feel safe at home: Yes Do you feel safe in your relationship?: Yes Exam Narrative Exam Narrative: 1.Const: Well-nourished, Well-developed, appearing stated age 2.Eyes: PERRL, no conjunctival injection, and symmetrical lids. 3.ENT: Atraumatic external nose and ears. Notably dry MM. Neck: Symmetric, trachea midline, No thyromegaly. 4.CVS: +S1/S2, No murmurs or gallops. Peripheral pulses 2+ and equal in all extremities. Brisk capillary refill in all extremities. 5.RESP: Unlabored respiratory effort. Clear to auscultation bilaterally. No wheezes rales or rhonchi 6.GI: Soft, generalized tenderness throughout the abdomen., No hepatosplenomegaly. No guarding or rebound. 7.MSK: Normocephalic/Atraumatic, Extremities w/o deformity or ttp No cyanosis or clubbing, Normal movement of all extremities 8.Skin: Warm, Dry. No rashes or lesions. 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 Sensation grossly intact, no focal neurologic deficits. All 6 cardinal planes of vision are fully intact. No evidence of rotatory or vertical nystagmus. The patient demonstrated a normal [id number], good dexterity. There was no evidence of dysdiadochokinesia. Patient was able to ambulate without difficulty. There was no wide-based gait. Romberg, and [id number] are both normal on testing. Sensation was intact bilaterally as well as muscle strength bilaterally for all extremities. Patient was able to verbalize butter cup with no slurring, or miss pronunciation. 10.Psych: (AAO) x3. However notably atypical mentation describing the presence of demons in her abdomen and chest. Review of historical records indicate that this is very common for her. She denies any homicidal or suicidal ideations Course Vital Signs Pulse Oximetry 100 03/27/19 19:13 Temperature 36.8 C 03/27/19 19:19 Temperature Source Tympanic 03/27/19 19:19 Pulse 80 03/27/19 19:46 Pulse 78 03/27/19 19:50 Respiratory Rate 26 H 03/27/19 19:19 Blood Pressure 135/80 03/27/19 19:46 Blood Pressure Mean 93 03/27/19 19:46 Blood Pressure Position Sitting 03/27/19 19:19 Pulse Oximetry 99 03/27/19 19:46 Oxygen Delivery Method Room Air 03/27/19 19:19 Oxygen Flow Rate 0 03/27/19 19:19 Pain Level 0 03/27/19 19:19
--- NOTE | 2019-03-27 20:24 | DI.CT_ITS ---
SYMPTOMS/DIAGNOSIS: SHORTNESS OF BREATH, VOMITING, CHEST AND ABDOMEN PAIN CHEST CT FOR PULMONARY EMBOLISM: CT angiography was performed with multi slice acquisition and multi planar and 3D reconstruction. There is no evidence of pulmonary emboli or aortic dissection or aneurysm. There is minimal dependent atelectasis. No pleural or pericardial effusions are seen. The heart size is normal. There is no evidence of spine or rib fracture or pneumothorax. IMPRESSION: Negative chest CT. CTA OF THE ABDOMEN AND PELVIS: The liver, gallbladder, spleen, pancreas, kidneys and adrenals are unremarkable. There is no bowel dilatation or inflammatory change. There is no free air or free fluid. There is a fatty containing umbilical hernia. There is some edema within the hernia however there also is some generalized body wall edema. There is severe muscle atrophy. The bladder, uterus and ovaries are unremarkable. IMPRESSION: Fatty containing umbilical hernia with question of inflammation. Clinical correlation is recommended. There is no evidence of aortic or iliac aneurysm or dissection. There is no evidence of bowel ischemia.
[2019-03-27 20:47] LABS: Absolute Basophil Count 0.01 k/cumm (0.0-0.2); Absolute Eosinophil Count 0.04 k/cumm (0.0-0.7); Absolute Lymphocyte Count 1.94 k/cumm (1.2-3.4); Absolute Monocyte Count 0.26 k/cumm (0.11-0.7); Absolute Neutrophil Count 2.11 k/cumm (1.2-6.7); Basophils % 0.2; Eosinophils % 0.9; HCT 43.9 % (36.0-46.0); HGB 14.9 g/dL (12.0-15.5); Lymphocytes % 44.5; Mean Corp. HGB Concentration 33.9 g/dL (32.0-36.0); Mean Corpuscular Hemoglobin 28.5 pg (27.0-33.0); Mean Corpuscular Volume 84.1 fL (80-95); Mean Platelet Volume 10.5 fL (8.0-11.0); Neutrophils % 48.4; Platelet Count 255 x1000/uL (130-400); RBC 5.22 m/cumm (4.00-5.20); RBC Distribution Width 14.2 % (11.7-14.6); White Blood Cell Count 4.36 k/cumm (4.4-10.8)
[2019-03-27 20:51] LABS: BE (Venous) 6.1 mmol/L (-3-3); HCO3 (Venous) 30 mmol/L (22-28); O2 Sat (Venous) 48 % (70-80); TCO2 (Venous) 26 mmol/L (22-29); pCO2 (Venous) 41 mm/Hg (34-47); pH (Venous) 7.47 (7.32-7.43); pO2 (Venous) 24 mm/Hg (28-44)
[2019-03-27 20:52] LABS: Lactate-non-spesis 4.1 mmol/l (0.6-1.4)
[2019-03-27 21:14] LABS: ALT 23 U/L (12-78); AST 14 U/L (15-37); Albumin 4.5 g/dL (3.4-5.0); Alkaline Phosphatase 118 U/L (46-116); Anion Gap 15.3 mmol/L (3-11); BUN 10 mg/dL (7-18); Bilirubin, Total 1.1 mg/dL (0.2-1.0); CO2 26.7 mmol/L (21.0-32.0); Calcium 10.4 mg/dL (8.5-10.1); Chloride 91 mmol/L (98-107); Estimated GFR 47.95 (mL/min/1.73m2); Lipase 58 U/L (73-393); Potassium 4.1 mmol/L (3.5-5.1); Sodium 133 mmol/L (136-145); Total Protein 8.5 g/dL (6.4-8.2)
[2019-03-27 21:19] LABS: Glucose 612 mg/dL (70-100)
[2019-03-27 21:26] LABS: ETHANOL BLOOD < 3.0 mg/dL (<3); Troponin I < 0.05 ng/mL (0.00-0.06)
[2019-03-27 22:08] LABS: Bilirubin Negative (Negative); Blood Negative (Negative); Clarity Clear (Clear); Glucose 500 mg/dL (Negative); Ketones 80 mg/dL (Negative); Leukocyte Esterase Negative (Negative); Nitrite Negative (Negative); pH 7.5 (5-8)
--- NOTE | 2019-03-27 23:19 | DI.VRAD_ITS ---
EXAM: CT Angiography Chest With Contrast EXAM DATE/TIME: 03/27/2019 10:07 PM CLINICAL HISTORY: 48 years old, female; Shortness of breath; Fever; Additional info: Nausea, vomiting TECHNIQUE: Imaging protocol: Axial computed tomographic angiography images of the chest with intravenous contrast using CT angiography protocol. Coronal and sagittal reformatted images were created and reviewed. 3D rendering: MIP reconstructed images were created and reviewed. Radiation optimization: All CT scans at this facility use at least one of these dose optimization techniques: automated exposure control; mA and/or kV adjustment per patient size (includes targeted exams where dose is matched to clinical indication); or iterative reconstruction. Contrast material: [id number]; Contrast volume: 100 ml; Contrast route: IV 20G RAC; COMPARISON: CT CHEST WITH CONTRAST 04/20/2015 4:42 PM FINDINGS: Pulmonary arteries: Normal. No pulmonary emboli. Aorta: Unremarkable. No aortic aneurysm. No aortic dissection. Lungs: Basilar dependent pulmonary atelectasis is present. Pleural space: Unremarkable. No pneumothorax. No pleural effusion. Heart: Unremarkable. No cardiomegaly. No pericardial effusion. Lymph nodes: Unremarkable. No enlarged lymph nodes. Bones/joints: Unremarkable. No acute fracture. Soft tissues: Unremarkable. IMPRESSION: No acute finding EXAM: CT Angiography Abdomen With Contrast EXAM DATE/TIME: 03/27/2019 10:07 PM CLINICAL HISTORY: 48 years old, female; Shortness of breath; Fever; Additional info: Nausea, vomiting TECHNIQUE: Imaging protocol: Axial computed tomographic angiography images of the abdomen with intravenous contrast material. Coronal and sagittal reformatted images were created and reviewed. 3D rendering: MIP reconstructed images were created and reviewed. Radiation optimization: All CT scans at this facility use at least one of these dose optimization techniques: automated exposure control; mA and/or kV adjustment per patient size (includes targeted exams where dose is matched to clinical indication); or iterative reconstruction. COMPARISON: CT CHEST WITH CONTRAST 04/20/2015 4:42 PM FINDINGS: VASCULATURE: Aorta: No aortic aneurysm. No aortic dissection. Celiac trunk and mesenteric arteries: No occlusion or significant stenosis. Renal arteries: No occlusion or significant stenosis. ABDOMEN: Liver: Normal. No mass. Gallbladder and bile ducts: Normal. No calcified stones. No ductal dilation. Pancreas: Normal. No ductal dilation. Spleen: Normal. No splenomegaly. Adrenals: Normal. No mass. Kidneys and ureters: Normal. No hydronephrosis. Stomach and bowel: Unremarkable. No obstruction. No mucosal thickening. Bladder: The urinary bladder is questionably thickwalled. This may reflect incomplete distention. However correlation with UA is recommended to exclude cystitis. Intraperitoneal space: Unremarkable. No free air. No significant fluid collection. Bones/joints: Unremarkable. No acute fracture. No dislocation. Soft tissues: Fat containing umbilical hernia is noted. Region hernia contains fat and a small amount of inflammation. Would recommend clinical correlation to assess for umbilical tenderness which may reflect incarceration of the fat. Lymph nodes: Unremarkable. No enlarged lymph nodes. IMPRESSION: 1. Region hernia contains fat and a small amount of inflammation. Would recommend clinical correlation to assess for umbilical tenderness which may reflect incarceration of the fat. 2. Equivocal cystitis. Dictated and Authenticated by: Patrick Goodwin MD. Ordering:KENDRA Gunn MD
[2019-03-28] VITALS (31 sets, daily range): BP systolic 86–127; BP diastolic 56–75; PULSE 47–84; RESP 8–18; TEMP 36.4–36.6; O2SAT 89–99
--- NOTE | 2019-03-28 00:04 | W.PM.HP.N ---
Date of service: 03/28/19 Time of Service: 00:04 Assessment and Plan (1) Uncontrolled type 2 diabetes mellitus with complication, with long-term current use of insulin: Start date: 03/28/19 Current visit: Yes Status: Acute This is a 48-year-old lady who was admitted for IV hydration and correction of her hyperglycemia with lactic acidosis. This corrected quickly with an insulin drip and then simply IV hydration with glucometer being below 200 upon admission to the ICU on telemetry. She did not require further insulin treatment during the grain elevator superintendent. She continues to be anorexic but is thirsty and is having some nausea which will be treated symptomatically as we advance her diet covering with AC and at bedtime glucometers during her hospital stay. There is no evidence of complicating bacterial infection other processes other than decreased intake of food and water with out using her insulin as an outpatient. She also was drinking alcohol on the day of admission. She is chronically on methadone daily and this was on her urine drug screen. Plan is to continue IV hydration and follow glucometers on treating her anorexia possibly exacerbated by her umbilical hernia with surgical consultation. There is no evidence of bowel obstruction. (2) Dehydration: Start date: 03/28/19 Current visit: Yes Status: Acute Continue monitor labs on IV hydration. Supplement electrolytes as needed. (3) Umbilical hernia, incarcerated: Start date: 03/28/19 Current visit: Yes Status: Acute Surgical consultation this morning to evaluate though this appears to be a chronic issue rather than acute. (4) Alcohol abuse: Start date: 03/28/19 Current visit: Yes Status: Chronic Patient's alcohol level was unmeasurable during her ED visit and this appears to be a intermittent issue but could have contributed to her dehydration. (5) Non compliance with medical treatment: Start date: 03/28/19 Current visit: Yes Status: Chronic Patient may benefit from continued social service coordinator evaluation for glucometer supplies and affording medications as well as appropriate medical follow-up. This appears to be an ongoing problem. (6) Schizophrenia: Start date: 03/28/19 Current visit: Yes Status: Suspected This is an untreated probably contributing to her noncompliance with delusions causing self-harm. Continue psychiatric evaluation and follow-up as an outpatient is appropriate. Qualifiers: Schizophrenia type: schizophreniform disorder Qualified Code(s): F20.81 - Schizophreniform disorder History of Present Illness Chief Complaint: Abdominal pain with nausea and vomiting with chest pain and dyspnea Narrative: This is a 48-year-old lady who presented to the ED with the above complaints over several days patient not eating but that she did not want to feed demons in her. Patient is diabetic on methadone and recently has not been able to afford her insulin but also has not been eating and drinking normally. She has not been taking her short acting insulin because of lack of eating but has been continuing her long-acting insulin, Lantus without measuring her glucometers. She has had problems with obtaining her insulin and her glucometer equipment. She lost her son over a year ago and has been grieving his as an excuse for drinking alcohol the day of admission. In the ED she was found to have lactic acidosis probably combination of several issues going hypoglycemia, dehydration and starvation with no evidence of DKA. Her hyperglycemia and acidosis corrected quickly with a short treatment course of insulin and IV hydration. Imaging did reveal an incarcerated umbilical hernia containing mostly omental fat with no evidence of obstruction but focal inflammation. Surgical consultation was ordered by the ED physician and will follow up with this morning. I examined the patient she was comfortable with some complaints of her umbilical pain as a tugging discomfort and she was severely constipated receiving some cathartics during the night. She has some nausea but is not vomiting. She had no other complaints and I did review the ED report complete review of her complaints and findings. Review of Systems Review of Systems 13 point review of systems otherwise unrevealing or stable with patient chronically having delusional thoughts with her schizophrenia which is not on treatment. She is chronically noncompliant with medical care. [facility] Medical History Hyperlipemia (Acute) PTSD (post-traumatic stress disorder) (Acute) Anxiety (Chronic) COPD (chronic obstructive pulmonary disease) (Chronic) Depression (Chronic) Diabetes (Chronic) Schizophrenia (Chronic) Social History Smoking/Tobacco Use Status: Former Tobacco Use Alcohol Intake: current Alcohol Intake frequency: 3 or more drinks per day Drug use: Current Sobriety Substance use type: does not use Do you feel safe at home: Yes Do you feel safe in your relationship?: Yes Meds Home Medications Medication Instructions Recorded Confirmed Type epinephrine [EpiPen 2-Tejinder] 0.3 mg IM ONCE #1 pen 04/01/13 10/26/18 History acetaminophen [Tylenol] 650 mg PO PRN PRN 04/16/15 03/27/19 History methadone 50 mg PO DAILY 06/09/15 03/27/19 History albuterol sulfate 2.5 mg INHALATION TID PRN #100 vial 12/28/16 03/27/19 History insulin aspart U- 100 100 unit/mL 5 unit SUBCUT TID #2 box 06/14/18 03/27/19 Rx subcutaneous pen lancets 28 gauge #100 each 08/30/18 10/16/18 Rx blood-glucose meter [FreeStyle #1 each 09/02/18 10/16/18 Rx Lite Meter] insulin aspart U-100 5 unit SC TID #15 ml 10/26/18 03/27/19 Rx lancets [Lancets, Super Thin] #50 each 10/26/18 Rx omeprazole 20 mg capsule,delayed 20 mg PO DAILY #30 cap 01/03/19 03/27/19 Rx release insulin glargine (U-100) 100 38 unit SC QHS #15 ml 02/13/19 03/27/19 Rx unit/mL (3 mL) subcutaneous pen pen needle, diabetic 31 gauge x #100 ea 02/13/19 Rx 1/3 blood sugar diagnostic strips #400 strip 02/16/19 Rx Allergies Allergy/AdvReac Type Severity Reaction Status Date / Time venom-honey bee Allergy Intermediate Unverified 02/19/19 15:23 [bee venom (honey bee)] Sulfa (Sulfonamide Allergy Rash & Unverified 02/19/19 15:23 Antibiotics) Shortness of Breath hydroxyzine HCl AdvReac Intermediate nausea/vomiting, Unverified 02/19/19 15:23 [From Vistaril] palpitations Exam Narrative Exam Narrative: General: Patient appears older than stated age but flattened affect and in no acute distress. She is alert and oriented to person place and time. She mentions the demons in her body but has no other delusional thoughts during conversation. HEENT: Normocephalic with eyes revealing pupils equal and reactive to light symmetrically, sclera anicteric and extraocular movement intact. Ears are normal. Oropharynx with dry oral mucosa and the patient edentulous. Neck: Supple without JVD. Lungs: Fair aeration with bronchovesicular breath sounds diffusely and no focalizing rales or rhonchi. No increased expiratory phase and no wheeze. (The patient is a smoker). Heart: Bradycardic with regular rhythm no appreciable murmurs or gallops. Breast: Not examined. Abdomen: Moderately obese contour. Soft palpation with no focalizing guarding though slightly tender over the umbilicus without palpable mass. No palpable hepatosplenomegaly. Bowel sounds are hypoactive but present in all quadrants. Back: Stooped posture with no CVA tenderness. Genitalia/Rectal: Not examined. Extremities: Without clubbing cyanosis or edema. No joint swelling and fair range of motion all joints. Skin: Pale, warm and dry with no rashes. Neuro: Cranial nerves II through XII grossly intact, motor and sensory grossly intact. Monofilament testing not performed. Psych: Remote and recent memory appear to be intact with patient having some delusional thoughts about demons. Flattened affect with fair eye contact. Mood is slightly depressed. Results Imaging Imaging Studies: EXAM: CT Angiography Chest With Contrast EXAM DATE/TIME: 03/27/2019 10:07 PM CLINICAL HISTORY: 48 years old, female; Shortness of breath; Fever; Additional info: Nausea, vomiting TECHNIQUE: Imaging protocol: Axial computed tomographic angiography images of the chest with intravenous contrast using CT angiography protocol. Coronal and sagittal reformatted images were created and reviewed. 3D rendering: MIP reconstructed images were created and reviewed. Radiation optimization: All CT scans at this facility use at least one of these dose optimization techniques: automated exposure control; mA and/or kV adjustment per patient size (includes targeted exams where dose is matched to clinical indication); or iterative reconstruction. Contrast material: [id number]; Contrast volume: 100 ml; Contrast route: IV 20G RAC; COMPARISON: CT CHEST WITH CONTRAST 04/20/2015 4:42 PM FINDINGS: Pulmonary arteries: Normal. No pulmonary emboli. Aorta: Unremarkable. No aortic aneurysm. No aortic dissection. Lungs: Basilar dependent pulmonary atelectasis is present. Pleural space: Unremarkable. No pneumothorax. No pleural effusion. Heart: Unremarkable. No cardiomegaly. No pericardial effusion. Lymph nodes: Unremarkable. No enlarged lymph nodes. Bones/joints: Unremarkable. No acute fracture. Soft tissues: Unremarkable. IMPRESSION: No acute finding EXAM: CT Angiography Abdomen With Contrast EXAM DATE/TIME: 03/27/2019 10:07 PM CLINICAL HISTORY: 48 years old, female; Shortness of breath; Fever; Additional info: Nausea, vomiting TECHNIQUE: Imaging protocol: Axial computed tomographic angiography images of the abdomen with intravenous contrast material. Coronal and sagittal reformatted images were created and reviewed. 3D rendering: MIP reconstructed images were created and reviewed. Radiation optimization: All CT scans at this facility use at least one of these dose optimization techniques: automated exposure control; mA and/or kV adjustment per patient size (includes targeted exams where dose is matched to clinical indication); or iterative reconstruction. COMPARISON: CT CHEST WITH CONTRAST 04/20/2015 4:42 PM FINDINGS: VASCULATURE: Aorta: No aortic aneurysm. No aortic dissection. Celiac trunk and mesenteric arteries: No occlusion or significant stenosis. Renal arteries: No occlusion or significant stenosis. ABDOMEN: Liver: Normal. No mass. Gallbladder and bile ducts: Normal. No calcified stones. No ductal dilation. Pancreas: Normal. No ductal dilation. Spleen: Normal. No splenomegaly. Adrenals: Normal. No mass. Kidneys and ureters: Normal. No hydronephrosis. Stomach and bowel: Unremarkable. No obstruction. No mucosal thickening. Bladder: The urinary bladder is questionably thickwalled. This may reflect incomplete distention. However correlation with UA is recommended to exclude cystitis. Intraperitoneal space: Unremarkable. No free air. No significant fluid collection. Bones/joints: Unremarkable. No acute fracture. No dislocation. Soft tissues: Fat containing umbilical hernia is noted. Region hernia contains fat and a small amount of inflammation. Would recommend clinical correlation to assess for umbilical tenderness which may reflect incarceration of the fat. Lymph nodes: Unremarkable. No enlarged lymph nodes. IMPRESSION: 1. Region hernia contains fat and a small amount of inflammation. Would recommend clinical correlation to assess for umbilical tenderness which may reflect incarceration of the fat. 2. Equivocal cystitis. Dictated and Authenticated by: Patrick Goodwin MD. Labs : 03/27/19 19:30 03/27/19 19:30 Laboratory Results - last 24 hr 03/27/19 03/27/19 03/27/19 19:30 19:30 19:30 WBC 4.36 L RBC 5.22 H Hgb 14.9 Hct 43.9 MCV 84.1 MCH 28.5 MCHC 33.9 RDW 14.2 Plt Count 255 MPV 10.5 Immature Gran % 0.0 Neutrophils % 48.4 Lymphocytes % 44.5 Monocytes % 6.0 Eosinophils % 0.9 Basophils % 0.2 Absolute Neutrophils 2.11 Absolute Lymphocytes 1.94 Absolute Monocytes 0.26 Absolute Eosinophils 0.04 Absolute Basophils 0.01 VBG pH VBG pCO2 VBG pO2 VBG HCO3 VBG Total CO2 VBG O2 Saturation VBG Base Excess Sodium 133 L Potassium 4.1 Chloride 91 L Carbon Dioxide 26.7 Anion Gap 15.3 H BUN 10 Creatinine 1.20 H Estimated GFR/1.73 m2 47.95 Glucose 612 H* Lactate 4.1 H Calcium 10.4 H Total Bilirubin 1.1 H AST 14 L ALT 23 Alkaline Phosphatase 118 H Troponin I Total Protein 8.5 H Albumin 4.5 Lipase 58 L Urine Color Urine Clarity Urine pH Ur Specific [place] Urine Protein Urine Ketones Urine Blood Urine Nitrite Urine Bilirubin Urine Urobilinogen Ur Leukocyte Esterase Urine Glucose Ethyl Alcohol < 3.0 03/27/19 03/27/19 03/27/19 19:30 19:36 21:40 WBC RBC Hgb Hct MCV MCH MCHC RDW Plt Count MPV Immature Gran % Neutrophils % Lymphocytes % Monocytes % Eosinophils % Basophils % Absolute Neutrophils Absolute Lymphocytes Absolute Monocytes Absolute Eosinophils Absolute Basophils VBG pH 7.47 H VBG pCO2 41 VBG pO2 24 L VBG HCO3 30 H VBG Total CO2 26 VBG O2 Saturation 48 L VBG Base Excess 6.1 H Sodium Potassium Chloride Carbon Dioxide Anion Gap BUN Creatinine Estimated GFR/1.73 m2 Glucose Lactate Calcium Total Bilirubin AST ALT Alkaline Phosphatase Troponin I < 0.05 Total Protein Albumin Lipase Urine Color Yellow Urine Clarity Clear Urine pH 7.5 Ur Specific [place] 1.010 Urine Protein Negative Urine Ketones 80 H Urine Blood Negative Urine Nitrite Negative Urine Bilirubin Negative Urine Urobilinogen 1.0 H Ur Leukocyte Esterase Negative Urine Glucose 500 H Ethyl Alcohol Last Vital Signs Temp 36.8 C 03/27/19 19:19 Pulse 69 03/27/19 23:30 Resp 18 03/27/19 20:15 BP 103/66 03/27/19 23:30 Pulse Ox 90 L 03/27/19 23:40
[2019-03-28] MEDS: Omnipaque 350 MG/ML 100 ML BTL IJ (00:09)
[2019-03-28 00:10] LABS: Lactate-non-spesis 0.9 mmol/l (0.6-1.4)
[2019-03-28 01:37] LABS: *AMPHETAMINES SCREEN URINE Negative (Negative); *BARBITURATES SCREEN URINE Negative (Negative); *BENZODIAZEPINES SCREEN URINE Negative (Negative); Cannabinoids THC Negative (Negative); Cocaine Screen,Urine Negative (Negative); METHADONE URINE SCREEN POSITIVE (Negative); OPIATES URINE SCREEN Negative (Negative)
[2019-03-28 01:38] LABS: Tricyclic Antidepressants Negative (Negative)
[2019-03-28] MEDS: Normal Saline 1,000 ML 150 ML IV ×2 (02:24→09:06)
[2019-03-28] MEDS: LORazepam 0.5 MG TAB PO ×2 (02:43→09:50)
[2019-03-28] MEDS: Acetaminophen 500 MG TAB 1000 MG PO (02:44)
[2019-03-28] MEDS: Polyethylene Glycol 3350 17 GM PACKET PO (02:45)
[2019-03-28] MEDS: Heparin 5,000 UNITS/ML VIAL 5000 UNITS SC ×2 (05:07→13:29)
[2019-03-28 05:24] LABS: Troponin I < 0.05 ng/mL (0.00-0.06)
[2019-03-28 07:31] LABS: ALT 19 U/L (12-78); AST 16 U/L (15-37); Albumin 2.9 g/dL (3.4-5.0); Alkaline Phosphatase 79 U/L (46-116); Anion Gap 9.4 mmol/L (3-11); BUN 10 mg/dL (7-18); Bilirubin, Total 0.9 mg/dL (0.2-1.0); CO2 26.6 mmol/L (21.0-32.0); CREATININE 0.75 mg/dL (0.55-1.02); Calcium 8.1 mg/dL (8.5-10.1); Chloride 102 mmol/L (98-107); Glucose 172 mg/dL (70-100); Potassium 3.5 mmol/L (3.5-5.1); Sodium 138 mmol/L (136-145); Total Protein 5.7 g/dL (6.4-8.2)
[2019-03-28 07:52] LABS: Magnesium 1.7 mg/dL (1.8-2.4); TSH (W/Ref FT4) 2.04 uIU/mL (0.358-3.74)
[2019-03-28 07:54] LABS: Troponin I < 0.05 ng/mL (0.00-0.06)
--- NOTE | 2019-03-28 07:55 | PHARADMIT ---
Admission Pharmacy Clinical Review DEHYDRATION, UNCONTROLLED NIDDM, Incarcerated Umbilical hernia Code Status Full Code Current Weight Wgt-75.5 kg Renally Cleared and Narrow Therapeutic Index Meds CrCl~64.3 mL/min Meds-OK QTc Value / Action Taken QTc-441 NA BP Control, Fever BP-102/63 Tmax- 36.8C Electrolytes reviewed Na- 138 K+3.5 Mag-1.7 DVT Prophylaxis Heparin-SC Opiate Usage / Scheduled Bowel Regimen Ordered Yes Yes Plt/SCr for Heparin / Enoxaparin Plts-255 SCr- 0.75 INR for Warfarin NA H/H stable, WBC/Bands H&H- 14.9/43.9 WBC- 4.6 Antibiotic appropriateness none Cultures and Sensitivities none Surgical ABX d/c within 24 hr NA DM control / Insulin Dosing BG-172 Aspart, Insulin Drip Heart Failure (Check EF%) (VAIBHAV's, B-Block, Diuretics) None IV to PO Switch No Home Meds Reviewed Yes Home Meds Not Ordered EpiPen, Lantus, Comments Methadone Liquid daily
[2019-03-28] MEDS: Promethazine 25 MG TAB PO (08:46)
[2019-03-28] MEDS: Omeprazole 20 MG CAPCR PO (08:46)
[2019-03-28] MEDS: Insulin Aspart 300 UNITS/3 ML PEN SC (08:49)
[2019-03-28] MEDS: Methadone Liquid 10 MG/ML 50 MG PO (08:58)
[2019-03-28] MEDS: Albuterol 2.5 MG/3 ML INH SOLN VIAL UPD (09:10)
[2019-03-28] MEDS: MAGNESIUM SULFATE 2 GM/50 ML BAG IVPB (09:38)
[2019-03-28] MEDS: Normal Saline 1,000 ML 1000 ML IV (09:38)
--- NOTE | 2019-03-28 10:51 | PDOC.MHCN ---
Date of service: 03/28/19 Time of Service: 10:51 Mental Health Crisis Note Presenting Issue How did you arrive at the ED and why did you come: Josefina comes to [facility] due to hydration, uncontrolled diabetes, and what is believed to be an incarcerated hernia. When she threatens to leave the hospital against medical advice, Reanna, home care coordinator, contacts [facility] emergency services to request an assessment. Precipitating Factors Josefina continues to be delusional, believing that she has demons in her stomach. These delusions began shortly after the of her son by overdose a couple of years ago. It had been reported to me that the delusions were keeping Josefina from eating and taking her medications. A conversation with Josefina and her friend Chandan reveals that though minimal, she is eating watermelon and eggs and ham every day and the reason she is not taking her insulin is that she has lost her meter and is unable to test her blood sugar levels, so she is afraid to take the insulin. A consultation with a surgeon finds that Josefina does not have an incarcerated hernia and has a chronic fatty hernia, which is described as non-life threatening. Josefina denies SI or HI. Disposition BEHAVIOR: Pleasant and cooperative. EYE CONTACT: Fair - Josefina was recently given Ativan and is clearly sleepy. MOOD: Calm. AFFECT: Congruent to mood. APPETITE: Poor but is eating minimally. SLEEP(trouble falling/staying asleep: Reports poor sleep. Plan Josefina agrees to receiving case management through [facility]. She is not interested in outpatient therapy or an inpatient placement and she does not meet criteria for an involuntary hospitalization at this time. Once medically cleared, Josefina will be discharged home. Signature Clinician's Name/Title: Jena Garland BA, [facility] Early Childhood Associate
--- NOTE | 2019-03-28 10:51 | PDOC.CMIN ---
- If Service Date Differs Date of service: 03/28/19 Time of Service: 10:51 Care Management Initial Assess REASON FOR HOSPITALIZATION:: Dehydration, uncontrolled NIDDM PAST MEDICAL HISTORY/PAST SURGICAL HISTORY:: Hyperlipemia (Acute). PTSD (post-traumatic stress disorder) (Acute). Anxiety (Chronic). COPD (chronic obstructive pulmonary disease) (Chronic). Depression (Chronic). Diabetes (Chronic). Schizophrenia (Chronic). Substance Abuse ([place]) PREVIOUS FUNCTIONAL STATUS/SOCIAL/FAMILY SUPPORTS:: Josefina is staying with her friend in [place], [place] she does not have a regular place to stay at this time. She is independent with care, and is able to ambulate without device. She uses [facility] for transportation. CURRENT FUNCTIONAL STATUS:: Josfeina is sitting up in the chair she falls asleep during assessment frequently. When she does awaken she states she is leaving now'. Josefina states she lost her glucometer and will need a new one, she denies any barriers to obtaining her medications. [place] [facility]. She states she is able to attend [facility] daily. She is willing to obtain a case operator through [facility] (Medicaid) and to meet with Jillian through [facility]. [facility] did meet with her today and she was able to complete the intake paperwork. Josefina is determine to leave AMA if not discharged today. ADVANCE DIRECTIVES:: None on file - unable to complete at this time Has patient been provided with information about the portal?: Yes Did the patient sign up for the portal?: No CODE STATUS:: Full Code INSURANCE COVERAGE / FINANCIAL ISSUES:: Medicaid CURRENT HOME/COMMUNITY SERVICES/EQUIPMENT:: [facility] services daily methadone dosing. PRIMARY CARE PHYSICIAN:: POTENTIAL DISCHARGE NEEDS:: Referral to [facility] and [facility] community case management PATIENT/FAMILY EDUCATION NEEDS:: Discharge education, limitations and medications. Risk of leaving AMA while admitted to the hospital. ANTICIPATED BARRIERS TO DISCHARGE:: Appropiate community resources in the community, lack of stable housing and treatment for chronic condition and mental health. TRANSPORTATION:: [facility] PLAN:: Josefina is being care for in the ICU as a medical Pt. She states she does not need to be here and she is going to leave AMA. Her friend is with her and is trying to keep her calm. Josefina wants to be discharged now, CM communicated this to the nurse and provider. CM recevied a call from ICU stating the Pt left AMA. CM faxed referrals as reviewed with pt and will request follow up from services.
--- NOTE | 2019-03-28 11:08 | PDOC.MHCN_ITS ---
Date of service: 03/28/19 Time of Service: 10:51 Mental Health Crisis Note Presenting Issue How did you arrive at the ED and why did you come: [facility] due to hydration, uncontrolled diabetes, and what is believed to be an incarcerated hernia. When she threatens to leave the hospital against medical advice, Reanna, nonfarm animal caretaker, contacts [facility] emergency services to request an assessment. Precipitating Factors Josefina continues to be delusional, believing that she has demons in her stomach. These delusions began shortly after the of her son by overdose a couple of years ago. It had been reported to me that the delusions were keeping Josefina from eating and taking her medications. A conversation with Josefina and her friend Chandan reveals that though minimal, she is eating watermelon and eggs and ham every day and the reason she is not taking her insulin is that she has lost her meter and is unable to test her blood sugar levels, so she is afraid to take the insulin. A consultation with a surgeon finds that Josefina does not have an incarcerated hernia and has a chronic fatty hernia, which is described as non-life threatening. Josefina denies SI or HI. Disposition BEHAVIOR: Pleasant and cooperative. EYE CONTACT: Fair - Josefina was recently given Ativan and is clearly sleepy. MOOD: Calm. AFFECT: Congruent to mood. APPETITE: Poor but is eating minimally. SLEEP(trouble falling/staying asleep: Reports poor sleep. Plan Josefina agrees to receiving case management through [facility]. She is not interested in outpatient therapy or an inpatient placement and she does not meet criteria for an involuntary hospitalization at this time. Once medically cleared, Josefina will be discharged home. Signature Clinician's Name/Title: Jena Garland BA, [facility] Office Support
--- NOTE | 2019-03-28 11:51 | W.SURGCON ---
Date of service: 03/28/19 Time of Service: 11:00 Assessment and Plan (1) Ventral hernia without obstruction or gangrene: Current visit: Yes Status: Acute The hernia is minimally symptomatic and fat-containing. This can be repaired at her convenience on an outpatient basis. The procedure was briefly described to the patient. I did emphasize the need for good control of her blood sugar to reduce postoperative complications such as wound infection. She will return to my office in 1-2 weeks to discuss the procedure more. She does express interest in having the hernia repaired. History of Present Illness Narrative: Patient presented to the emergency department yesterday with complaints of dyspnea, chest and abdominal pain, nausea and vomiting. She was found to be hyperglycemic and also had acidosis related to dehydration and poorly managed diabetes. The patient had a CT scan which revealed a umbilical hernia with incarcerated omentum. This hernia appears to be a chronic issue based on review of the CAT scan from October although it is somewhat larger in size. There is no evidence of bowel involvement. This is probably not a big contributing factor in her current symptoms. This morning she is tolerating a diet without nausea or vomiting. She reports no significant abdominal pain just a pulling in the upper abdomen. Review of Systems Constitutional Denies fatigue and Denies headache(s) Eyes Denies change in vision ENT Denies headache(s) and Denies neck mass Cardiovascular Denies edema, Denies palpitations and Denies dyspnea Respiratory Denies cough, Denies dyspnea and Denies wheezing Gastrointestinal Denies abdominal pain, Denies hematochezia and Denies change in bowel habits Genitourinary Denies abnormal vaginal bleeding and Denies dysuria Musculoskeletal Denies joint swelling Integumentary/Breasts Denies new lesions and Denies rash Neurologic Denies confusion, Denies headache(s) and Denies focal weakness Psychiatric Reports system reviewed and no additional complaints, except as docu and Denies confusion Endocrine Denies fatigue and Denies palpitations Hematologic/Lymphatic Denies easy bleeding and Denies lymphadenopathy Allergic/Immunologic Denies wheezing [facility] Medical History Hyperlipemia (Acute) PTSD (post-traumatic stress disorder) (Acute) Anxiety (Chronic) COPD (chronic obstructive pulmonary disease) (Chronic) Depression (Chronic) Diabetes (Chronic) Schizophrenia (Chronic) Social History Smoking/Tobacco Use Status: Former Tobacco Use Alcohol Intake: current Alcohol Intake frequency: 3 or more drinks per day Drug use: Current Sobriety Substance use type: does not use Do you feel safe at home: Yes Do you feel safe in your relationship?: Yes Exam Const General: not in acute distress Nutritional Appearance: well nourished [facility] Head: normal to inspection Eyes Sclera: sclerae normal Pupils: PERRL Neck Neck: no lymphadenopathy Carotids: no bruits Resp Effort & Inspection: normal respiratory effort Auscultation: clear to auscultation bilaterally and no wheezes Cardio Rate: regular rate Rhythm: regular rhythm GI Inspection: non-distended Palpation: soft, no hepatosplenomegaly, hernia ventral (Above umbilicus, about 2-3 cm in size. Minimal tenderness. Not reducible. Contains fat, no bowel. No skin change) and nontender Skin General skin exam: no rashes or lesions noted Neuro General: alert Extrem General: normal to inspection Psych Attitude: cooperative Results Last Vital Signs Temp 97.5 F L 03/28/19 08:11 Pulse 49 L 03/28/19 07:22 Resp 11 L 03/28/19 07:22 BP 102/63 03/28/19 07:22 Pulse Ox 93 L 03/28/19 06:00 Labs : 03/27/19 19:30 03/28/19 06:25 Laboratory Results - last 24 hr 03/27/19 03/27/19 03/27/19 19:30 19:30 19:30 WBC 4.36 L RBC 5.22 H Hgb 14.9 Hct 43.9 MCV 84.1 MCH 28.5 MCHC 33.9 RDW 14.2 Plt Count 255 MPV 10.5 Immature Gran % 0.0 Neutrophils % 48.4 Lymphocytes % 44.5 Monocytes % 6.0 Eosinophils % 0.9 Basophils % 0.2 Absolute Neutrophils 2.11 Absolute Lymphocytes 1.94 Absolute Monocytes 0.26 Absolute Eosinophils 0.04 Absolute Basophils 0.01 VBG pH VBG pCO2 VBG pO2 VBG HCO3 VBG Total CO2 VBG O2 Saturation VBG Base Excess Sodium 133 L Potassium 4.1 Chloride 91 L Carbon Dioxide 26.7 Anion Gap 15.3 H BUN 10 Creatinine 1.20 H Estimated GFR/1.73 m2 47.95 Glucose 612 H* Lactate 4.1 H Calcium 10.4 H Magnesium Total Bilirubin 1.1 H AST 14 L ALT 23 Alkaline Phosphatase 118 H Troponin I Total Protein 8.5 H Albumin 4.5 Lipase 58 L TSH Urine Color Urine Clarity Urine pH Ur Specific [place] Urine Protein Urine Ketones Urine Blood Urine Nitrite Urine Bilirubin Urine Urobilinogen Ur Leukocyte Esterase Urine Glucose Urine Opiates Screen Urine Methadone Screen Ur Barbiturates Screen Ur Tricyclics Screen Ur Amphetamines Screen U Benzodiazepines Scrn Urine Cocaine Screen Ur THC Screen Ethyl Alcohol < 3.0 03/27/19 03/27/19 03/27/19 19:30 19:36 21:40 WBC RBC Hgb Hct MCV MCH MCHC RDW Plt Count MPV Immature Gran % Neutrophils % Lymphocytes % Monocytes % Eosinophils % Basophils % Absolute Neutrophils Absolute Lymphocytes Absolute Monocytes Absolute Eosinophils Absolute Basophils VBG pH 7.47 H VBG pCO2 41 VBG pO2 24 L VBG HCO3 30 H VBG Total CO2 26 VBG O2 Saturation 48 L VBG Base Excess 6.1 H Sodium Potassium Chloride Carbon Dioxide Anion Gap BUN Creatinine Estimated GFR/1.73 m2 Glucose Lactate Calcium Magnesium Total Bilirubin AST ALT Alkaline Phosphatase Troponin I < 0.05 Total Protein Albumin Lipase TSH Urine Color Yellow Urine Clarity Clear Urine pH 7.5 Ur Specific [place] 1.010 Urine Protein Negative Urine Ketones 80 H Urine Blood Negative Urine Nitrite Negative Urine Bilirubin Negative Urine Urobilinogen 1.0 H Ur Leukocyte Esterase Negative Urine Glucose 500 H Urine Opiates Screen Urine Methadone Screen Ur Barbiturates Screen Ur Tricyclics Screen Ur Amphetamines Screen U Benzodiazepines Scrn Urine Cocaine Screen Ur THC Screen Ethyl Alcohol 03/28/19 03/28/19 03/28/19 00:08 04:57 06:25 WBC RBC Hgb Hct MCV MCH MCHC RDW Plt Count MPV Immature Gran % Neutrophils % Lymphocytes % Monocytes % Eosinophils % Basophils % Absolute Neutrophils Absolute Lymphocytes Absolute Monocytes Absolute Eosinophils Absolute Basophils VBG pH VBG pCO2 VBG pO2 VBG HCO3 VBG Total CO2 VBG O2 Saturation VBG Base Excess Sodium Potassium Chloride Carbon Dioxide Anion Gap BUN Creatinine Estimated GFR/1.73 m2 Glucose Lactate 0.9 Calcium Magnesium 1.7 L Total Bilirubin AST ALT Alkaline Phosphatase Troponin I < 0.05 < 0.05 Total Protein Albumin Lipase TSH 2.04 Urine Color Urine Clarity Urine pH Ur Specific [place] Urine Protein Urine Ketones Urine Blood Urine Nitrite Urine Bilirubin Urine Urobilinogen Ur Leukocyte Esterase Urine Glucose Urine Opiates Screen Urine Methadone Screen Ur Barbiturates Screen Ur Tricyclics Screen Ur Amphetamines Screen U Benzodiazepines Scrn Urine Cocaine Screen Ur THC Screen Ethyl Alcohol 03/28/19 03/28/19 06:25 21:40 WBC RBC Hgb Hct MCV MCH MCHC RDW Plt Count MPV Immature Gran % Neutrophils % Lymphocytes % Monocytes % Eosinophils % Basophils % Absolute Neutrophils Absolute Lymphocytes Absolute Monocytes Absolute Eosinophils Absolute Basophils VBG pH VBG pCO2 VBG pO2 VBG HCO3 VBG Total CO2 VBG O2 Saturation VBG Base Excess Sodium 138 Potassium 3.5 Chloride 102 Carbon Dioxide 26.6 Anion Gap 9.4 BUN 10 Creatinine 0.75 Estimated GFR/1.73 m2 >= 60.00 Glucose 172 H D Lactate Calcium 8.1 L Magnesium Total Bilirubin 0.9 AST 16 ALT 19 Alkaline Phosphatase 79 Troponin I Total Protein 5.7 L Albumin 2.9 L Lipase TSH Urine Color Urine Clarity Urine pH Ur Specific [place] Urine Protein Urine Ketones Urine Blood Urine Nitrite Urine Bilirubin Urine Urobilinogen Ur Leukocyte Esterase Urine Glucose Urine Opiates Screen Negative Urine Methadone Screen Positive Ur Barbiturates Screen Negative Ur Tricyclics Screen Negative Ur Amphetamines Screen Negative U Benzodiazepines Scrn Negative Urine Cocaine Screen Negative Ur THC Screen Negative Ethyl Alcohol
--- NOTE | 2019-03-28 12:59 | NUR.NOTE ---
Nursing Note: Patient is requesting to go outside to smoke. This nurse explained to patient we are a non smoking facility. I offered her a nicotine patch and a nicotine inhaler to help with her nicotine craving. She refused both at this time. This nurse told patient if she changed her mind and wanted the nicotine replacement, we could certainly do that. Dr. Santos came in to see patient. Patient agreed to stay until the normal saline bolus and magnesium was given, and until she was seen by the surgeon.
[2019-03-28 13:14] LABS: Glucose 422 mg/dL (70-100)
--- NOTE | 2019-03-28 13:21 | CHAPLAIN ---
Nurse Deluna let me know that Josefina requested a director emergency visit. She said Josefina had been talking about having demons in her stomach. The demons, Josefina said, were being fed by whatever Josefina ate and she was concerned that the demons would take over. When I spoke with Josefina she told me that she had been delivered to [facility] three times during her life, that she reads the Bible and prays, but the demons remain. She told me that she and Chandan (her SO) had visited three churches in [place] on Sunday, and spoke with a second class welder at one of the churches, and he was very helpful. Josefina said visiting churches, and being outside, especially near water, is very soothing to her. Chandan was very supportive during the conversation and assuring Josefina that she is doing the right things to get better. We talked about the Bible relating that people can continually be forgiven if they sincerely seek forgiveness. We talked about God being love, so that Kareen could be assured anytime she felt the presence of love (as she does with Chandan and others), she was experiencing God's presence as well. Kareen told me about her son's from a fentynol overdose about two years ago. This is when she first began experiencing the demons. Kareen had questions for Nurse Deluna about the magnesium she was being given (why did it get low? how do you get enough of it?) and those were answered. Although Kareen had been saying she would leave [facility], she agreed with Nurse Deluna and Dr. Santos that she would stay until her magnesium dose was complete. Dr. Santos offered her a nicotine replacement that Kareen accept.
[2019-03-28] MEDS: Insulin Aspart 300 UNITS/3 ML PEN 15 UNITS SC (13:36)
[2019-03-28] MEDS: Insulin Glargine 300 UNITS/3 ML PEN 39 UNITS SC (13:36)
--- NOTE | 2019-03-28 14:45 | W.PM.DS.N ---
Date of service: 03/28/19 Time of Service: 14:46 DS: Diagnosis Discharge Diagnosis (1) Ventral hernia without obstruction or gangrene: Status: Acute (2) Alcohol abuse: Status: Chronic (3) Constipation: Status: Acute (4) Uncontrolled type 2 diabetes mellitus with complication, with long-term current use of insulin: Status: Acute (5) Drug addiction: Status: Acute (6) Non compliance with medical treatment: Status: Chronic (7) Schizophrenia: Status: Suspected Discharge Plan Disposition Patient Disposition: AGAINST MEDICAL ADVICE Condition: Improving Discharge Details Chief Complaint: GenMedical Clinical Impression: History of medication noncompliance, Acute hyperglycemia, Hernia, umbilical, Abdominal pain, Chest pain, Schizophrenia Reason For Visit: DEHYDRATION,UNCONTROLLED NIDDM,INCARCERATED UMBILI Admit Date/Time: 03/28/19 00:08 Admit Provider: Saad St Attending Provider: Saad St Primary Care Provider: Marni Doan ED Provider: Luis A Owusu Hospital Course Hospital Course: Ms Higginbotham is a 48 year old female with PMHx of IDDM2, opioid dependence on methadone therapy, schizophrenia, medical noncompliance, who was admitted to [facility] medical surgical floor with hyperglycemia due to medical noncompliance and dehydration in setting of nausea, abdominal pain, constipation, and a delusion that she did not want to feed the demons in her stomach. She does have a ventral hernia on imaging, but this does not appear to have bowel in it, only fat and was evaluated by general surgery, who felt she did not require surgical intervention on this admission. She will eventually have to have this fixed. Her hyperglycemia was managed with IV and then subcutaneous insulin and IVF. The patient had made an attempt to leave AMA earlier this morning and was evaluated by [facility] and found to have the right to make that decision because there was no critical life threatening condition going on at this time. She finally did leave AMA this afternoon with her sugars still out of control. Case management did ensure that the patient has a referral for psychiatric follow up. Home Meds and New Rx's Prescriptions: No Action epinephrine [EpiPen 2-Tejinder] 0.3 MG/0.3 ML auto-injector 0.3 mg IM ONCE Qty: 1 RF: 1 albuterol sulfate 2.5 MG/3 ML solution for nebulization 2.5 mg Inhalation TID PRNQty: 100 RF: 2 Novolog Flexpen U-100 Insulin 100 unit/mL insulin pen 5 unit subcut TID Qty: 2 RF: 2 lancets [FreeStyle Lancets] 28 gauge misc 1 ea Miscellaneous QID Qty: 100 RF: 4 omeprazole 20 mg capsule,delayed release(DR/EC) 20 mg PO DAILY Qty: 30 RF: 3 insulin glargine 100 unit/mL (3 mL) insulin pen 38 unit SC QHS Qty: 15 RF: 0 pen needle, diabetic 31 gauge x 1/3 needle 1 ea Miscellaneous QID Qty: 100 RF: 2 Blood Glucose Test strip 1 ea Miscellaneous qid and PRN (Reason: E11.649) Qty: 400 RF: 4 acetaminophen [Tylenol] 325 MG tablet 650 mg PO PRN PRNRF: 0 methadone 10 MG/ML concentrate 50 mg PO DAILY RF: 0 blood-glucose meter [FreeStyle Lite Meter] kit .ROUTE .MEDSUPPLY Qty: 1 RF: 0 lancets [Lancets, Super Thin] misc .ROUTE .MEDSUPPLY Qty: 50 RF: 0 insulin aspart U-100 100 unit/mL insulin pen 5 unit SC TID Qty: 15 RF: 0 Discharge Instructions Referrals: Divine King MD [ [facility] STAFF PHYSICIAN] - 04/07/19 2:30 pm Discharge Orders Discharge Orders: Discharge Order (Routine); Ordered 03/28/19 Ordered By: Makayla Santos DS: Data Vitals/I&O Vitals and I&O: Vital Signs Temperature 36.4 C L 03/28/19 08:11 Temperature Source Temporal Artery Scan 03/28/19 08:11 Pulse 75 03/28/19 10:54 Pulse Rhythm Regular 03/28/19 08:00 Pulse 82 03/28/19 10:54 Respiratory Rate 18 03/28/19 10:54 Respiratory Effort Non-Labored 03/28/19 08:00 Respiratory Depth Normal 03/28/19 08:00 Respiratory Pattern Normal 03/28/19 08:00 Blood Pressure 105/65 03/28/19 10:54 Blood Pressure Mean 74 03/28/19 10:54 Blood Pressure Position Supine 03/28/19 01:50 Pulse Oximetry 99 03/28/19 10:54 Oxygen Delivery Method Room Air 03/28/19 10:54 Oxygen Flow Rate 0 03/28/19 10:54 Pain Level 0 03/28/19 03:44 Intake & Output 03/27/19 03/28/19 03/28/19 23:59 11:59 23:59 Intake Total 1007.035 / 2089.272 1805 / 2600 Output Total 550 / 550 Balance 1007.035 / 3187.692 4770 / 2050 -550 / 2050 Weight 63.2 kg 75.5 kg Intake: IV 1007.035 / 0116.789 7677 / 1999 Oral 600 / 600 Output: Urine 550 / 550 Other: Urine Color Yellow Urine Appearance Clear Cloudy Urine Odor Strong Labs on day of discharge: Labs from last 24 hours 03/28/19 03/28/19 03/28/19 21:40 12:55 06:25 WBC RBC Hgb Hct MCV MCH MCHC RDW Plt Count MPV Immature Gran % Neutrophils % Lymphocytes % Monocytes % Eosinophils % Basophils % Absolute Neutrophils Absolute Lymphocytes Absolute Monocytes Absolute Eosinophils Absolute Basophils VBG pH VBG pCO2 VBG pO2 VBG HCO3 VBG Total CO2 VBG O2 Saturation VBG Base Excess Sodium 138 Potassium 3.5 Chloride 102 Carbon Dioxide 26.6 Anion Gap 9.4 BUN 10 Creatinine 0.75 Estimated GFR/1.73 m2 >= 60.00 Glucose 422 H D 172 H D Lactate Calcium 8.1 L Magnesium Total Bilirubin 0.9 AST 16 ALT 19 Alkaline Phosphatase 79 Troponin I Total Protein 5.7 L Albumin 2.9 L Lipase TSH Urine Color Urine Clarity Urine pH Ur Specific [place] Urine Protein Urine Ketones Urine Blood Urine Nitrite Urine Bilirubin Urine Urobilinogen Ur Leukocyte Esterase Urine Glucose Urine Opiates Screen Negative Urine Methadone Screen Positive Ur Barbiturates Screen Negative Ur Tricyclics Screen Negative Ur Amphetamines Screen Negative U Benzodiazepines Scrn Negative Urine Cocaine Screen Negative Ur THC Screen Negative Ethyl Alcohol 03/28/19 03/28/19 03/28/19 06:25 04:57 00:08 WBC RBC Hgb Hct MCV MCH MCHC RDW Plt Count MPV Immature Gran % Neutrophils % Lymphocytes % Monocytes % Eosinophils % Basophils % Absolute Neutrophils Absolute Lymphocytes Absolute Monocytes Absolute Eosinophils Absolute Basophils VBG pH VBG pCO2 VBG pO2 VBG HCO3 VBG Total CO2 VBG O2 Saturation VBG Base Excess Sodium Potassium Chloride Carbon Dioxide Anion Gap BUN Creatinine Estimated GFR/1.73 m2 Glucose Lactate 0.9 Calcium Magnesium 1.7 L Total Bilirubin AST ALT Alkaline Phosphatase Troponin I < 0.05 < 0.05 Total Protein Albumin Lipase TSH 2.04 Urine Color Urine Clarity Urine pH Ur Specific [place] Urine Protein Urine Ketones Urine Blood Urine Nitrite Urine Bilirubin Urine Urobilinogen Ur Leukocyte Esterase Urine Glucose Urine Opiates Screen Urine Methadone Screen Ur Barbiturates Screen Ur Tricyclics Screen Ur Amphetamines Screen U Benzodiazepines Scrn Urine Cocaine Screen Ur THC Screen Ethyl Alcohol 03/27/19 03/27/19 03/27/19 21:40 19:36 19:30 WBC RBC Hgb Hct MCV MCH MCHC RDW Plt Count MPV Immature Gran % Neutrophils % Lymphocytes % Monocytes % Eosinophils % Basophils % Absolute Neutrophils Absolute Lymphocytes Absolute Monocytes Absolute Eosinophils Absolute Basophils VBG pH 7.47 H VBG pCO2 41 VBG pO2 24 L VBG HCO3 30 H VBG Total CO2 26 VBG O2 Saturation 48 L VBG Base Excess 6.1 H Sodium Potassium Chloride Carbon Dioxide Anion Gap BUN Creatinine Estimated GFR/1.73 m2 Glucose Lactate Calcium Magnesium Total Bilirubin AST ALT Alkaline Phosphatase Troponin I < 0.05 Total Protein Albumin Lipase TSH Urine Color Yellow Urine Clarity Clear Urine pH 7.5 Ur Specific [place] 1.010 Urine Protein Negative Urine Ketones 80 H Urine Blood Negative Urine Nitrite Negative Urine Bilirubin Negative Urine Urobilinogen 1.0 H Ur Leukocyte Esterase Negative Urine Glucose 500 H Urine Opiates Screen Urine Methadone Screen Ur Barbiturates Screen Ur Tricyclics Screen Ur Amphetamines Screen U Benzodiazepines Scrn Urine Cocaine Screen Ur THC Screen Ethyl Alcohol 03/27/19 03/27/19 03/27/19 19:30 19:30 19:30 WBC 4.36 L RBC 5.22 H Hgb 14.9 Hct 43.9 MCV 84.1 MCH 28.5 MCHC 33.9 RDW 14.2 Plt Count 255 MPV 10.5 Immature Gran % 0.0 Neutrophils % 48.4 Lymphocytes % 44.5 Monocytes % 6.0 Eosinophils % 0.9 Basophils % 0.2 Absolute Neutrophils 2.11 Absolute Lymphocytes 1.94 Absolute Monocytes 0.26 Absolute Eosinophils 0.04 Absolute Basophils 0.01 VBG pH VBG pCO2 VBG pO2 VBG HCO3 VBG Total CO2 VBG O2 Saturation VBG Base Excess Sodium 133 L Potassium 4.1 Chloride 91 L Carbon Dioxide 26.7 Anion Gap 15.3 H BUN 10 Creatinine 1.20 H Estimated GFR/1.73 m2 47.95 Glucose 612 H* Lactate 4.1 H Calcium 10.4 H Magnesium Total Bilirubin 1.1 H AST 14 L ALT 23 Alkaline Phosphatase 118 H Troponin I Total Protein 8.5 H Albumin 4.5 Lipase 58 L TSH Urine Color Urine Clarity Urine pH Ur Specific [place] Urine Protein Urine Ketones Urine Blood Urine Nitrite Urine Bilirubin Urine Urobilinogen Ur Leukocyte Esterase Urine Glucose Urine Opiates Screen Urine Methadone Screen Ur Barbiturates Screen Ur Tricyclics Screen Ur Amphetamines Screen U Benzodiazepines Scrn Urine Cocaine Screen Ur THC Screen Ethyl Alcohol < 3.0 PFSH Medical History Hyperlipemia (Acute) PTSD (post-traumatic stress disorder) (Acute) Anxiety (Chronic) COPD (chronic obstructive pulmonary disease) (Chronic) Depression (Chronic) Diabetes (Chronic) Schizophrenia (Chronic) Social History Smoking/Tobacco Use Status: Former Tobacco Use Alcohol Intake: current Alcohol Intake frequency: 3 or more drinks per day Drug use: Current Sobriety Substance use type: does not use Do you feel safe at home: Yes Do you feel safe in your relationship?: Yes
--- NOTE | 2019-03-28 14:53 | DSE_ITS ---
Date of service: 03/28/19 Time of Service: 14:46 DS: Diagnosis Discharge Diagnosis (1) Ventral hernia without obstruction or gangrene: Status: Acute (2) Alcohol abuse: Status: Chronic (3) Constipation: Status: Acute (4) Uncontrolled type 2 diabetes mellitus with complication, with long-term current use of insulin: Status: Acute (5) Drug addiction: Status: Acute (6) Non compliance with medical treatment: Status: Chronic (7) Schizophrenia: Status: Suspected Discharge Plan Disposition Patient Disposition: AGAINST MEDICAL ADVICE Condition: Improving Discharge Details Chief Complaint: GenMedical Clinical Impression: History of medication noncompliance, Acute hyperglycemia, Hernia, umbilical, Abdominal pain, Chest pain, Schizophrenia Reason For Visit: DEHYDRATION,UNCONTROLLED NIDDM,INCARCERATED UMBILI Admit Date/Time: 03/28/19 00:08 Admit Provider: Saad St Attending Provider: Saad St Primary Care Provider: Marni Doan ED Provider: Luis A Owusu Hospital Course Hospital Course: Ms Higginbotham is a 48 year old female with PMHx of IDDM2, opioid dependence on methadone therapy, schizophrenia, medical noncompliance, who was admitted to [facility] medical surgical floor with hyperglycemia due to medical noncompliance and dehydration in setting of nausea, abdominal pain, constipation, and a delusion that she did not want to feed the demons in her stomach. She does have a ventral hernia on imaging, but this does not appear to have bowel in it, only fat and was evaluated by general surgery, who felt she did not require surgical intervention on this admission. She will eventually have to have this fixed. Her hyperglycemia was managed with IV and then subcutaneous insulin and IVF. The patient had made an attempt to leave AMA earlier this morning and was evaluated by [facility] and found to have the right to make that decision because there was no critical life threatening condition going on at this time. She finally did leave AMA this afternoon with her sugars still out of control. Case management did ensure that the patient has a referral for psychiatric follow up. Home Meds and New Rx's Prescriptions: No Action epinephrine [EpiPen 2-Tejinder] 0.3 MG/0.3 ML auto-injector 0.3 mg IM ONCE Qty: 1 RF: 1 albuterol sulfate 2.5 MG/3 ML solution for nebulization 2.5 mg Inhalation TID PRNQty: 100 RF: 2 Novolog Flexpen U-100 Insulin 100 unit/mL insulin pen 5 unit subcut TID Qty: 2 RF: 2 lancets [FreeStyle Lancets] 28 gauge misc 1 ea Miscellaneous QID Qty: 100 RF: 4 omeprazole 20 mg capsule,delayed release(DR/EC) 20 mg PO DAILY Qty: 30 RF: 3 insulin glargine 100 unit/mL (3 mL) insulin pen 38 unit SC QHS Qty: 15 RF: 0 pen needle, diabetic 31 gauge x 1/3 needle 1 ea Miscellaneous QID Qty: 100 RF: 2 Blood Glucose Test strip 1 ea Miscellaneous qid and PRN (Reason: E11.649) Qty: 400 RF: 4 acetaminophen [Tylenol] 325 MG tablet 650 mg PO PRN PRNRF: 0 methadone 10 MG/ML concentrate 50 mg PO DAILY RF: 0 blood-glucose meter [FreeStyle Lite Meter] kit .ROUTE .MEDSUPPLY Qty: 1 RF: 0 lancets [Lancets, Super Thin] misc .ROUTE .MEDSUPPLY Qty: 50 RF: 0 insulin aspart U-100 100 unit/mL insulin pen 5 unit SC TID Qty: 15 RF: 0 Discharge Instructions Referrals: Divine King MD [ [facility] STAFF PHYSICIAN] - 04/07/19 2:30 pm Discharge Orders Discharge Orders: Discharge Order (Routine); Ordered 03/28/19 Ordered By: Makayla Santos DS: Data Vitals/I&O Vitals and I&O: Vital Signs Temperature 36.4 C L 03/28/19 08:11 Temperature Source Temporal Artery Scan 03/28/19 08:11 Pulse 75 03/28/19 10:54 Pulse Rhythm Regular 03/28/19 08:00 Pulse 82 03/28/19 10:54 Respiratory Rate 18 03/28/19 10:54 Respiratory Effort Non-Labored 03/28/19 08:00 Respiratory Depth Normal 03/28/19 08:00 Respiratory Pattern Normal 03/28/19 08:00 Blood Pressure 105/65 03/28/19 10:54 Blood Pressure Mean 74 03/28/19 10:54 Blood Pressure Position Supine 03/28/19 01:50 Pulse Oximetry 99 03/28/19 10:54 Oxygen Delivery Method Room Air 03/28/19 10:54 Oxygen Flow Rate 0 03/28/19 10:54 Pain Level 0 03/28/19 03:44 Intake & Output 03/27/19 03/28/19 03/28/19 23:59 11:59 23:59 Intake Total 1007.035 / 5968.038 8331 / 2600 Output Total 550 / 550 Balance 1007.035 / 1608.325 2231 / 2050 -550 / 2050 Weight 63.2 kg 75.5 kg Intake: IV 1007.035 / 9313.690 0975 / 1999 Oral 600 / 600 Output: Urine 550 / 550 Other: Urine Color Yellow Urine Appearance Clear Cloudy Urine Odor Strong Labs on day of discharge: Labs from last 24 hours 03/28/19 03/28/19 03/28/19 21:40 12:55 06:25 WBC RBC Hgb Hct MCV MCH MCHC RDW Plt Count MPV Immature Gran % Neutrophils % Lymphocytes % Monocytes % Eosinophils % Basophils % Absolute Neutrophils Absolute Lymphocytes Absolute Monocytes Absolute Eosinophils Absolute Basophils VBG pH VBG pCO2 VBG pO2 VBG HCO3 VBG Total CO2 VBG O2 Saturation VBG Base Excess Sodium 138 Potassium 3.5 Chloride 102 Carbon Dioxide 26.6 Anion Gap 9.4 BUN 10 Creatinine 0.75 Estimated GFR/1.73 m2 >= 60.00 Glucose 422 H D 172 H D Lactate Calcium 8.1 L Magnesium Total Bilirubin 0.9 AST 16 ALT 19 Alkaline Phosphatase 79 Troponin I Total Protein 5.7 L Albumin 2.9 L Lipase TSH Urine Color Urine Clarity Urine pH Ur Specific [place] Urine Protein Urine Ketones Urine Blood Urine Nitrite Urine Bilirubin Urine Urobilinogen Ur Leukocyte Esterase Urine Glucose Urine Opiates Screen Negative Urine Methadone Screen Positive Ur Barbiturates Screen Negative Ur Tricyclics Screen Negative Ur Amphetamines Screen Negative U Benzodiazepines Scrn Negative Urine Cocaine Screen Negative Ur THC Screen Negative Ethyl Alcohol 03/28/19 03/28/19 03/28/19 06:25 04:57 00:08 WBC RBC Hgb Hct MCV MCH MCHC RDW Plt Count MPV Immature Gran % Neutrophils % Lymphocytes % Monocytes % Eosinophils % Basophils % Absolute Neutrophils Absolute Lymphocytes Absolute Monocytes Absolute Eosinophils Absolute Basophils VBG pH VBG pCO2 VBG pO2 VBG HCO3 VBG Total CO2 VBG O2 Saturation VBG Base Excess Sodium Potassium Chloride Carbon Dioxide Anion Gap BUN Creatinine Estimated GFR/1.73 m2 Glucose Lactate 0.9 Calcium Magnesium 1.7 L Total Bilirubin AST ALT Alkaline Phosphatase Troponin I < 0.05 < 0.05 Total Protein Albumin Lipase TSH 2.04 Urine Color Urine Clarity Urine pH Ur Specific [place] Urine Protein Urine Ketones Urine Blood Urine Nitrite Urine Bilirubin Urine Urobilinogen Ur Leukocyte Esterase Urine Glucose Urine Opiates Screen Urine Methadone Screen Ur Barbiturates Screen Ur Tricyclics Screen Ur Amphetamines Screen U Benzodiazepines Scrn Urine Cocaine Screen Ur THC Screen Ethyl Alcohol 03/27/19 03/27/19 03/27/19 21:40 19:36 19:30 WBC RBC Hgb Hct MCV MCH MCHC RDW Plt Count MPV Immature Gran % Neutrophils % Lymphocytes % Monocytes % Eosinophils % Basophils % Absolute Neutrophils Absolute Lymphocytes Absolute Monocytes Absolute Eosinophils Absolute Basophils VBG pH 7.47 H VBG pCO2 41 VBG pO2 24 L VBG HCO3 30 H VBG Total CO2 26 VBG O2 Saturation 48 L VBG Base Excess 6.1 H Sodium Potassium Chloride Carbon Dioxide Anion Gap BUN Creatinine Estimated GFR/1.73 m2 Glucose Lactate Calcium Magnesium Total Bilirubin AST ALT Alkaline Phosphatase Troponin I < 0.05 Total Protein Albumin Lipase TSH Urine Color Yellow Urine Clarity Clear Urine pH 7.5 Ur Specific [place] 1.010 Urine Protein Negative Urine Ketones 80 H Urine Blood Negative Urine Nitrite Negative Urine Bilirubin Negative Urine Urobilinogen 1.0 H Ur Leukocyte Esterase Negative Urine Glucose 500 H Urine Opiates Screen Urine Methadone Screen Ur Barbiturates Screen Ur Tricyclics Screen Ur Amphetamines Screen U Benzodiazepines Scrn Urine Cocaine Screen Ur THC Screen Ethyl Alcohol 03/27/19 03/27/19 03/27/19 19:30 19:30 19:30 WBC 4.36 L RBC 5.22 H Hgb 14.9 Hct 43.9 MCV 84.1 MCH 28.5 MCHC 33.9 RDW 14.2 Plt Count 255 MPV 10.5 Immature Gran % 0.0 Neutrophils % 48.4 Lymphocytes % 44.5 Monocytes % 6.0 Eosinophils % 0.9 Basophils % 0.2 Absolute Neutrophils 2.11 Absolute Lymphocytes 1.94 Absolute Monocytes 0.26 Absolute Eosinophils 0.04 Absolute Basophils 0.01 VBG pH VBG pCO2 VBG pO2 VBG HCO3 VBG Total CO2 VBG O2 Saturation VBG Base Excess Sodium 133 L Potassium 4.1 Chloride 91 L Carbon Dioxide 26.7 Anion Gap 15.3 H BUN 10 Creatinine 1.20 H Estimated GFR/1.73 m2 47.95 Glucose 612 H* Lactate 4.1 H Calcium 10.4 H Magnesium Total Bilirubin 1.1 H AST 14 L ALT 23 Alkaline Phosphatase 118 H Troponin I Total Protein 8.5 H Albumin 4.5 Lipase 58 L TSH Urine Color Urine Clarity Urine pH Ur Specific [place] Urine Protein Urine Ketones Urine Blood Urine Nitrite Urine Bilirubin Urine Urobilinogen Ur Leukocyte Esterase Urine Glucose Urine Opiates Screen Urine Methadone Screen Ur Barbiturates Screen Ur Tricyclics Screen Ur Amphetamines Screen U Benzodiazepines Scrn Urine Cocaine Screen Ur THC Screen Ethyl Alcohol < 3.0 PFSH Medical History Hyperlipemia (Acute) PTSD (post-traumatic stress disorder) (Acute) Anxiety (Chronic) COPD (chronic obstructive pulmonary disease) (Chronic) Depression (Chronic) Diabetes (Chronic) Schizophrenia (Chronic) Social History Smoking/Tobacco Use Status: Former Tobacco Use Alcohol Intake: current Alcohol Intake frequency: 3 or more drinks per day Drug use: Current Sobriety Substance use type: does not use Do you feel safe at home: Yes Do you feel safe in your relationship?: Yes
--- NOTE | 2019-04-01 14:44 | DM INPTCON_ITS ---
DESCRIPTION/ASSESSMENT: Appreciate diabetes consult for Brandi who is hospitalized with hyperglycemia. She has started using less insulin because she was running out. She states she was not eating because she has spirits in her and eating feeds the spirits. She stopped taking her insulin because she was not eating. Visited Brandi. She had difficulty keeping her eyes open during the conversation and fell asleep mid-sentence. She does state she lost her glucometer in her latest move. INTERVENTION: Discussed her insulin dosing. Discussed need for insulin as prescribed. Requested prescription for new Freestyle glucometer. PLAN: Will follow up if she can stay awake and if she remains hospitalized.
== END 2019-03-28 14:00 | disposition left against medical advice (07) | DRG 638 ==
LOC: ER 03-28 00:32 → ICU 03-28 01:53
PROVIDERS: Admitting Provider Family Medicine; Emergency Provider Student in an Organized Health Care Education/Training Program; PCP Family Medicine; Visit Provider Internal Medicine
DX: E11.65 Type 2 diabetes mellitus with hyperglycemia (principal); F11.20 Opioid dependence, uncomplicated; E87.2 Acidosis; Z53.21 Procedure and treatment not carried out due to patient leaving prior to being seen by health care provider; E86.0 Dehydration; K43.9 Ventral hernia without obstruction or gangrene; F20.9 Schizophrenia, unspecified; Z91.14 Patient's other noncompliance with medication regimen; K59.00 Constipation, unspecified; Z79.4 Long term (current) use of insulin; F10.10 Alcohol abuse, uncomplicated
CPT/HCPCS: 36415; 36416; 71275; 74177; 80053; 80307; 82805; 82947; 82962; 83690; 93005; 96361; 96365; 96372; 96375; 99223; 99253; 99285; NC; 80320; 81003; 83605; 83735; 84443; 84484; 85025; 93010; 94640; J1644; J2405; J3490; J7613

== ENCOUNTER 2019-04-23 06:43 | Emergency (ER) | payer MEDICAID, SELFPAY ==
[2019-04-23 06:50] VITALS: BP 138/78; PULSE 99; RESP 16; TEMP 36.4; O2SAT 98
--- NOTE | 2019-04-23 06:57 | W.ED.GENAD ---
Discharge Plan Disposition Patient Disposition: HOME Condition: Stable Discharge Details Chief Complaint: Diabetes Clinical Impression: Dehydration, Acute hyperglycemia, Medical non-compliance Primary Care Provider: Marni Doan ED Provider: Marc Antunez Home Meds and New Rx's Prescriptions: New docusate sodium [Colace] 100 mg capsule 100 mg PO BID Qty: 60 RF: 0 Continued epinephrine [EpiPen 2-Tejinder] 0.3 MG/0.3 ML auto-injector 0.3 mg IM ONCE Qty: 1 RF: 1 albuterol sulfate 2.5 MG/3 ML solution for nebulization 2.5 mg Inhalation TID PRNQty: 100 RF: 2 Novolog Flexpen U-100 Insulin 100 unit/mL insulin pen 5 unit subcut TID Qty: 2 RF: 2 omeprazole 20 mg capsule,delayed release(DR/EC) 20 mg PO DAILY Qty: 30 RF: 3 (DME) pen needle, diabetic 31 gauge x 1/3 needle 1 ea Miscellaneous QID Qty: 100 RF: 2 (DME) Blood Glucose Test strip 1 ea Miscellaneous qid and Qty: 400 RF: 4 (DME) lancets [FreeStyle Lancets] 28 gauge misc 1 ea Miscellaneous QID Qty: 100 RF: 4 insulin aspart U-100 100 unit/mL insulin pen 5 unit SC TID Qty: 15 RF: 2 polyethylene glycol 3350 [Miralax] 17 gram powder in packet 17 gm PO DAILY PRN (Reason: constipation) Qty: 30 RF: 1 acetaminophen [Tylenol] 325 MG tablet 650 mg PO PRN PRNRF: 0 methadone 10 MG/ML concentrate 25 mg PO DAILY RF: 0 (DME) blood-glucose meter [FreeStyle Lite Meter] kit See Dose Instructions .ROUTE .MEDSUPPLY Qty: 1 RF: 0 (DME) lancets [Lancets, Super Thin] misc See Dose Instructions .ROUTE .MEDSUPPLY Qty: 50 RF: 0 insulin glargine 100 unit/mL (3 mL) insulin pen 38 unit SC QHS Qty: 15 RF: 0 Discharge Instructions Instructions: Diabetes Mellitus Type 2 in Adults (ED) Additional Instructions: it is important you take your medications as prescribed especially for your diabetes follow up with your primary care provider within a week I have referred you for an appointment for a general surgery visit for your hernia and thickened rectum on cat scan . You should receive a call for this if you feel you are becoming more ill or have new symptoms such as fevers or difficulty breathing return to the emergency department Medical Decision Making <Luis A Owusu DO - Last Filed: 04/23/19 07:06> This is a 48-year-old female who presents today for evaluation of abdominal pain, and hyperglycemia. She states that she has not taken any Lantus for the last 2 weeks. She blames this on her PCP not calling in her prescription, however it feels to be other factors at play. She has been taking intermittent doses of her regularly insulin. Additionally she does complain of worsening abdominal pain with associated vomiting. She is vomited few times every day. She denies any diarrhea or melena. She denies any chest pain, headache, or other complaints. She does complain that there are demons inside of her but this is her status quo. Exam demonstrates supraumbilical tenderness, palpable mild hernia. Dry mucous membranes. Accu-Chek is 400. We will rehydrate, give 20 units of subcu insulin, if CT scan with oral contrast for assessment of abdominal hernia incarceration or strangulation. Also of note the patient did have outpatient surgical follow-up scheduled however she states that they never called her for her appointment. Case will be signed out to my colleague Dr. Marc Antunez for final disposition, reassessment. At this time we are pending CT results. <Marc Antunez MD - Last Filed: 04/23/19 09:24> pt's ct abdomen/pelvis per Dr. grover shows no acute findings, has chronic umbilical fat containing hernia and nonspecific thickening of rectum, she has been advised in the past she may need a colonoscopy but still hasn't had one. She is in no distress on my exam sleeping on my assessment. She has no abdominal tenderness on my exam. I will prescribe her lantus and also stool softener since the Ct showed constipation, and will refer her to general surgery for her umbilical hernia and possible colonoscopy for her thickened rectum within 1-2 weeks. Return precautions givne. I offered to refer her for home health but she declined this Imaging Data Radiologic Study: Attestation: I personally reviewed and interpreted this imaging study as follows: Imaging: CT Scan Radiologist's impression: no acute findings per Dr. Grover Lab Data Lab results reviewed: Yes I reviewed the patient's lab results. HPI <Luis A Owusu DO - Last Filed: 04/23/19 07:06> General Date/Time Provider Initiated Documentation: 04/23/19 06:46. HPI Narrative: This is a 48-year-old female with a past medical history of ventral hernia, COPD, diabetes, schizophrenia and delusional disorder, with a history of medical noncompliance, who presents today for evaluation of nausea vomiting and abdominal pain as well as hyperglycemia. Patient states that for the last 2 weeks she has not taken any of her Lantus. She states that she is contacted her PCP but no one is called it in. She has been taking her regular insulin occasionally but notably reduced doses. She admits to feelings of dehydration, malaise, and previous episodes of abdominal pain has returned, worsening with food. Pain is located throughout, primarily around her umbilicus. The patient denies any other complaints. She does mention that there are demons inside of her, this is notably common for her presentations. She denies any complaints of chest pain, shortness of breath, chest heaviness or chest tightness. She denies any numbness tingling or weakness. She denies any other modifying factors. Related Data Home Medications Medication Instructions Recorded Confirmed epinephrine [EpiPen 2-Tejinder] 0.3 mg IM ONCE #1 pen 04/01/13 04/23/19 acetaminophen [Tylenol] 650 mg PO PRN PRN 04/16/15 04/23/19 methadone 25 mg PO DAILY 06/09/15 04/23/19 albuterol sulfate 2.5 mg INHALATION TID PRN #100 vial 12/28/16 04/23/19 insulin aspart U-100 100 unit/mL 5 unit SUBCUT TID #2 box 06/14/18 04/23/19 (3 mL) subcutaneous pen blood-glucose meter [FreeStyle #1 each 09/02/18 10/16/18 Lite Meter] lancets [Lancets, Super Thin] #50 each 10/26/18 omeprazole 20 mg capsule,delayed 20 mg PO DAILY #30 cap 01/03/19 04/23/19 release pen needle, diabetic 31 gauge x #100 ea 05/23/19 1/3 blood sugar diagnostic #400 strip 02/16/19 insulin aspart U-100 100 unit/mL 5 unit SC TID #15 ml 04/04/19 (3 mL) subcutaneous pen lancets 28 gauge #100 each 04/04/19 polyethylene glycol 3350 17 gram 17 gm PO DAILY PRN #30 each 04/04/19 04/23/19 oral powder packet docusate sodium [Colace] 100 mg PO BID #60 cap 04/23/19 insulin glargine 38 unit SC QHS #15 ml 04/23/19 Previous Rx's Medication Instructions Recorded insulin aspart U-100 100 unit/mL 5 unit SUBCUT TID #2 box 06/14/18 (3 mL) subcutaneous pen blood-glucose meter [FreeStyle #1 each 09/02/18 Lite Meter] lancets [Lancets, Super Thin] #50 each 10/26/18 omeprazole 20 mg capsule,delayed 20 mg PO DAILY #30 cap 01/03/19 release pen needle, diabetic 31 gauge x #100 ea 02/13/1909/26 blood sugar diagnostic #400 strip 02/16/19 insulin aspart U-100 100 unit/mL 5 unit SC TID #15 ml 04/04/19 (3 mL) subcutaneous pen lancets 28 gauge #100 each 04/04/19 polyethylene glycol 3350 17 gram 17 gm PO DAILY PRN #30 each 04/04/19 oral powder packet docusate sodium [Colace] 100 mg PO BID #60 cap 04/23/19 insulin glargine 38 unit SC QHS #15 ml 04/23/19 Allergies Allergy/AdvReac Type Severity Reaction Status Date / Time venom-honey bee Allergy Intermediate Unverified 04/23/19 07:41 [bee venom (honey bee)] Sulfa (Sulfonamide Allergy Rash & Unverified 04/23/19 07:41 Antibiotics) Shortness of Breath hydroxyzine HCl AdvReac Intermediate nausea/vomiting, Unverified 04/23/19 07:41 [From Vistaril] palpitations General LAURIE: 3 Review of Systems <Luis A Owusu DO - Last Filed: 04/23/19 07:06> Review of Systems All systems reviewed & are unremarkable except as noted in HPI and below PFSH <Luis A Owusu DO - Last Filed: 04/23/19 07:06> Social History Smoking/Tobacco Use Status: Former Tobacco Use Alcohol Intake: current Alcohol Intake frequency: 3 or more drinks per day Drug use: Current Sobriety Substance use type: does not use Do you feel safe at home: Yes Do you feel safe in your relationship?: Yes Exam <Luis A Owusu DO - Last Filed: 04/23/19 07:06> Narrative Exam Narrative: 1.Const: Well-nourished, Well-developed, appearing stated age 2.Eyes: PERRL, no conjunctival injection, and symmetrical lids. 3.ENT: Atraumatic external nose and ears. Moist MM. Neck: Symmetric, trachea midline, No thyromegaly. 4.CVS: +S1/S2, No murmurs or gallops. Peripheral pulses 2+ and equal in all extremities. Brisk capillary refill in all extremities. 5.RESP: Unlabored respiratory effort. Clear to auscultation bilaterally. No wheezes rales or rhonchi 6.GI: Soft, Nondistended, No hepatosplenomegaly. No guarding or rebound. Mild to moderate pain around her umbilicus, supraumbilical hernia is present. Minimal tenderness. No erythema or edema. 7.MSK: Normocephalic/Atraumatic, Extremities w/o deformity or ttp No cyanosis or clubbing, Normal movement of all extremities 8.Skin: Warm, Dry. No rashes or lesions. 9.Neuro: radiographer mammographer II-XII grossly intact. Sensation grossly intact, no focal neurologic deficits. 10.Psych: (AAO) x3. Appropriate mood and affect Sign Out <Luis A Owusu DO - Last Filed: 04/23/19 07:06> Sign Out Data: Sign Out Comment: Known delusions at baseline. Presents with medical noncompliance, hyperglycemia and abdominal pain. Pending CT results. Last updated by Luis A Owusu DO at 04/23/19 07:07
[2019-04-23 07:14] LABS: BE (Venous) 1.3 mmol/L (-3-3); HCO3 (Venous) 26 mmol/L (22-28); O2 Sat (Venous) 83 % (70-80); TCO2 (Venous) 23 mmol/L (22-29); pCO2 (Venous) 43 mm/Hg (34-47); pH (Venous) 7.39 (7.32-7.43); pO2 (Venous) 48 mm/Hg (28-44)
[2019-04-23] MEDS: Ondansetron 4 MG/2 ML VIAL IVP (07:15)
[2019-04-23] MEDS: Normal Saline 1,000 ML 1000 ML IV (07:15)
[2019-04-23 07:18] LABS: Abs Immature Grans 0.01 k/cumm (0.0-0.09); Absolute Basophil Count 0.01 k/cumm (0.0-0.2); Absolute Eosinophil Count 0.04 k/cumm (0.0-0.7); Absolute Lymphocyte Count 1.37 k/cumm (1.2-3.4); Absolute Monocyte Count 0.26 k/cumm (0.11-0.7); Absolute Neutrophil Count 4.89 k/cumm (1.2-6.7); Basophils % 0.2; Eosinophils % 0.6; HCT 42.6 % (36.0-46.0); HGB 14.3 g/dL (12.0-15.5); Immature Grans % 0.2; Lymphocytes % 20.8; Mean Corp. HGB Concentration 33.6 g/dL (32.0-36.0); Mean Corpuscular Hemoglobin 28.1 pg (27.0-33.0); Mean Corpuscular Volume 83.7 fL (80-95); Mean Platelet Volume 9.8 fL (8.0-11.0); Neutrophils % 74.2; Platelet Count 256 x1000/uL (130-400); RBC 5.09 m/cumm (4.00-5.20); RBC Distribution Width 13.4 % (11.7-14.6); White Blood Cell Count 6.58 k/cumm (4.4-10.8)
[2019-04-23] MEDS: Insulin REGULAR-Human 100 UNITS/ML UNIT 20 UNITS SC (07:25)
[2019-04-23 07:29] LABS: Bilirubin Negative (Negative); Blood Negative (Negative); Clarity Clear (Clear); Glucose 500 mg/dL (Negative); Ketones 15 mg/dL (Negative); Leukocyte Esterase Negative (Negative); Nitrite Negative (Negative); Specific Gravity 1.015 (1.005-1.025); pH 7.5 (5-8)
[2019-04-23] MEDS: LORazepam 2 MG/ML VIAL 0.5 MG IVP ×2 (07:39→09:08)
[2019-04-23 07:42] LABS: ALT 21 U/L (12-78); AST 18 U/L (15-37); Albumin 3.8 g/dL (3.4-5.0); Alkaline Phosphatase 99 U/L (46-116); Anion Gap 14.1 mmol/L (3-11); BUN 11 mg/dL (7-18); CO2 23.9 mmol/L (21.0-32.0); CREATININE 0.96 mg/dL (0.55-1.02); Calcium 9.3 mg/dL (8.5-10.1); Chloride 95 mmol/L (98-107); Glucose 450 mg/dL (70-100); Potassium 3.7 mmol/L (3.5-5.1); Sodium 133 mmol/L (136-145); Total Protein 7.3 g/dL (6.4-8.2)
[2019-04-23 07:57] LABS: Lipase 39 U/L (73-393)
[2019-04-23] MEDS: Omnipaque 350 MG/ML 50 ML BTL PO (08:17)
[2019-04-23] MEDS: Breeza Beverage 473 ML BTL PO (08:18)
--- NOTE | 2019-04-23 08:56 | DI.CT_ITS ---
SYMPTOMS/DIAGNOSIS: VOMITING, ABD PAIN, HX RECTAL THICKENING AND HERNIA CT SCAN OF THE ABDOMEN AND PELVIS: The study was carried out with an intravenous injection of 100 cc's of Omnipaque 350 and oral ingestion of dilute Omnipaque. Comparison is made with a prior study of 10/26/18. Small regions of dependent atelectasis are noted in the lung bases. The liver is intact. There is no evidence of cholelithiasis. The gallbladder is normal. Again noted is the prominence of the common duct unchanged. The pancreas is atrophic. The spleen is intact. There is no evidence of bowel obstruction. Again noted is thickening of the rectum unchanged. There is no evidence of an acute appendix. Note is made of a considerable quantity of fecal material in the colon consistent with constipation. The bladder is unremarkable. The reproductive organs as visualized are unremarkable. There is no evidence of free air or free fluid in the intraperitoneal space. No acute bony abnormality is seen. Again demonstrated is a fat containing ventral hernia without evidence of incarceration. There is no evidence of an aortic aneurysm. There is no evidence of a mass or lymphadenopathy. SUMMARY: There has been no significant interval change when compared with the prior study. Again noted is bowel wall thickening involving the rectum. There are findings consistent with constipation. Again noted is the prominence of the common duct unchanged.
[2019-04-23 10:00] VITALS: BP 110/70; PULSE 76; RESP 16; TEMP 36.4; O2SAT 94
--- NOTE | 2019-04-23 14:13 | NUR.NOTE ---
Nursing Note: Referral faxed to General Surgery for follow up. Referral faxed to PCP to follow up appt. Oralia Paris.
== END 2019-04-23 10:20 | disposition home or self-care (01) ==
PROVIDERS: Student in an Organized Health Care Education/Training Program; Emergency Provider Emergency Medicine; PCP Family Medicine
DX: E11.65 Type 2 diabetes mellitus with hyperglycemia (principal); Z79.4 Long term (current) use of insulin; E86.0 Dehydration; T38.3X6A Underdosing of insulin and oral hypoglycemic [antidiabetic] drugs, initial encounter; Z91.14 Patient's other noncompliance with medication regimen; J44.9 Chronic obstructive pulmonary disease, unspecified; R10.33 Periumbilical pain; F20.9 Schizophrenia, unspecified; K46.9 Unspecified abdominal hernia without obstruction or gangrene; R11.2 Nausea with vomiting, unspecified; K59.00 Constipation, unspecified; K43.9 Ventral hernia without obstruction or gangrene; Z87.891 Personal history of nicotine dependence
CPT/HCPCS: 36415; 36416; 80053; 82805; 82962; 83690; 96361; 96372; 96374; 96375; 99285; 74177; 81003; 85025; J2060; J2405; Q9967

== ENCOUNTER 2019-06-24 21:25 | Emergency (ER) | payer MEDICAID, SELFPAY ==
[2019-06-24 21:28] VITALS: BP 132/72; PULSE 70; RESP 14; TEMP 36.6; O2SAT 88
[2019-06-24 21:30] VITALS: BP 126/81; PULSE 76; RESP 16; O2SAT 95
--- NOTE | 2019-06-24 21:39 | ED.GENADUL_ITS ---
Discharge Plan Disposition Patient Disposition: HOME Discharge Details Chief Complaint: Nausea/Vomit/Diar Clinical Impression: Hyperglycemia, Nausea and vomiting Primary Care Provider: Marni Doan ED Provider: Junito Mcrae Home Meds and New Rx's Prescriptions: Continued epinephrine [EpiPen 2-Tejinder] 0.3 MG/0.3 ML auto-injector 0.3 mg IM ONCE Qty: 1 RF: 1 Novolog Flexpen U-100 Insulin 100 unit/mL insulin pen 5 unit subcut TID Qty: 2 RF: 2 (DME) Blood Glucose Test strip 1 ea Miscellaneous qid and Qty: 400 RF: 4 (DME) lancets [FreeStyle Lancets] 28 gauge misc 1 ea Miscellaneous QID Qty: 100 RF: 4 polyethylene glycol 3350 [Miralax] 17 gram powder in packet 17 gm PO DAILY PRN (Reason: constipation) Qty: 30 RF: 1 acetaminophen [Tylenol] 325 MG tablet 650 mg PO PRN PRNRF: 0 methadone 10 MG/ML concentrate 25 mg PO DAILY RF: 0 (DME) blood-glucose meter [FreeStyle Lite Meter] kit See Dose Instructions .ROUTE .MEDSUPPLY Qty: 1 RF: 0 (DME) lancets [Lancets, Super Thin] misc See Dose Instructions .ROUTE .MEDSUPPLY Qty: 50 RF: 0 docusate sodium [Colace] 100 mg capsule 100 mg PO BID Qty: 60 RF: 0 No Action insulin glargine 100 unit/mL (3 mL) insulin pen 38 unit SC QHS Qty: 15 RF: 2 (DME) pen needle, diabetic 31 gauge x 1/3 needle 1 ea Miscellaneous QID Qty: 100 RF: 2 lorazepam [Ativan] 1 mg tablet 1 mg PO TID PRN (Reason: anxiety) Qty: 21 RF: 0 Discharge Instructions Instructions: Acute Nausea and Vomiting (ED), Diabetic Hyperglycemia (ED) Additional Instructions: Monitor your blood glucose closely and please take your insulin as prescribed. Please contact your primary care physician to arrange follow-up. Call today. It is important that you see your doctor in follow-up this week. Return to the ER for any worsening or new concerning symptoms. Referrals: Marni Doan MD [Primary Care Provider] - Discharge Data Discharge Date/Time-TO BE ENTERED AT DEPARTURE: 06/25/19 02:39 Medical Decision Making 21:42 --49-year-old female with history of insulin-dependent diabetes, schizophrenia, alcohol abuse, on methadone, here with nausea, vomiting. Hyperglycemic. Consider DKA. Plan to check chemistry and urinalysis. We will give IV fluid bolus. Concern for EtOH abuse and mild intoxication. 22:53 --difficulty with IV access per nursing. I attempted EJ unsuccessfully. Right upper extremity ultrasound-guided peripheral IV placed by me successfully. --Patient noting severe anxiety. Requesting benzodiazepine which she is prescribed. Will give dose of Ativan. --Initial anion gap mildly elevated at 13. Some ketones in her urine. 2:22 --patient has received 2 L of saline. Repeat chemistry was performed and patient has no anion gap at this time. Blood sugar is improved now low 300s. Patient is tolerating oral intake and feeling much better. Patient admits that she has not been taking her insulin with meals as prescribed. She does have her insulin and understands importance of taking it. She has been taking her long- acting at night. I reiterated to her the importance of taking insulin as prescribed. Patient verbalized understanding of my recommendation. Plan will be to have the patient follow-up with her primary care physician. Patient will require close follow-up for reassessment and may need adjustments of insulin dosing. Disposition decision was made weighing the risks and benefits of hospitalization versus outpatient treatment, the risk for further decompensation, and the patient's wishes. The patient was stable and requested discharge. Prior to discharge, my usual and customary return precautions were reviewed with the patient - this included follow-up instructions and reason to return to the emergency department if condition worsens, does not improve as expected, or other new concerns arise. HPI General Mode of arrival: ambulatory . Date/Time Provider Initiated Documentation: 06/24/19 21:38 . Limitations to Documentation: no limitations . Information obtained by: patient and EMS . HPI Narrative: 49-year-old female with multiple medical problems including history of alcohol abuse, insulin- dependent diabetes, COPD, umbilical hernia, schizophrenia, here with chief complaint of nausea. Patient notes nausea and vomiting over the past few hours. She states that she consumed approximately 4 alcoholic beverages and then developed nausea and vomiting. Nausea is severe. Constant. No modifiers. EMS no blood sugar of 469. Patient states that she took her insulin about 1 to 2 hours ago. She states she has been taking her insulin as prescribed. Patient also notes that she does have some left-sided abdominal pain. She states is chronic intermittent been related to her hernia. Related Data Home Medications Medication Instructions Recorded Confirmed epinephrine [EpiPen 2-Tejinder] 0.3 mg IM ONCE #1 pen 04/01/13 07/20/19 acetaminophen [Tylenol] 650 mg PO PRN PRN 04/16/15 07/20/19 methadone 25 mg PO DAILY 06/09/15 07/20/19 insulin aspart U-100 100 unit/mL 5 unit SUBCUT TID #2 box 06/14/18 07/20/19 (3 mL) subcutaneous pen blood-glucose meter [FreeStyle #1 each 09/02/18 10/16/18 Lite Meter] lancets [Lancets, Super Thin] #50 each 10/26/18 blood sugar diagnostic #400 strip 02/16/19 lancets 28 gauge #100 each 04/04/19 polyethylene glycol 3350 17 gram 17 gm PO DAILY PRN #30 each 04/04/19 07/20/19 oral powder packet docusate sodium [Colace] 100 mg PO BID #60 cap 04/23/19 07/20/19 insulin glargine 100 unit/mL (3 38 unit SC QHS #15 ml 07/02/19 07/20/19 mL) subcutaneous pen pen needle, diabetic 31 gauge x #100 ea 07/09/19 1/ lorazepam 1 mg tablet 1 mg PO TID PRN #21 tab 07/16/19 07/20/19 Previous Rx's Medication Instructions Recorded insulin aspart U-100 100 unit/mL 5 unit SUBCUT TID #2 box 06/14/18 (3 mL) subcutaneous pen blood-glucose meter [FreeStyle #1 each 09/02/18 Lite Meter] lancets [Lancets, Super Thin] #50 each 10/26/18 blood sugar diagnostic #400 strip 02/16/19 lancets 28 gauge #100 each 04/04/19 polyethylene glycol 3350 17 gram 17 gm PO DAILY PRN #30 each 04/04/19 oral powder packet docusate sodium [Colace] 100 mg PO BID #60 cap 04/23/19 insulin glargine 100 unit/mL (3 38 unit SC QHS #15 ml 07/02/19 mL) subcutaneous pen pen needle, diabetic 31 gauge x #100 ea 07/09/19 1/3 lorazepam 1 mg tablet 1 mg PO TID PRN #21 tab 07/16/19 Allergies Allergy/AdvReac Type Severity Reaction Status Date / Time venom-honey bee Allergy Intermediate Unverified 07/20/19 13:56 [bee venom (honey bee)] Sulfa (Sulfonamide Allergy Rash & Unverified 07/20/19 13:56 Antibiotics) Shortness of Breath hydroxyzine HCl AdvReac Intermediate nausea/vomiting, Unverified 07/20/19 13:56 [From Vistaril] palpitations General Stated Complaint: Nausea/Vomit/Diar LAURIE: 3 Review of Systems Review of Systems ROS Unobtainable: All systems reviewed & are unremarkable except as noted in HPI and below Constitutional Constitutional: Denies fever(s) Gastrointestinal Gastrointestinal: Reports as per HPI, Reports abdominal pain, Reports nausea and Reports vomiting [facility] Medical History (Updated 07/20/19 @ 17:45 by Kevin Fuentes MD) Alcohol abuse (Inactive) Alcohol dependence in remission (Inactive) Anxiety (Inactive) Cellulitis of left hand (Inactive 02/01/15) a. secondary to cat bite vs. IVDU b. has 13 cats at home c. denies ongoing IVDU at this time Closed fracture of distal end of right fibula (Inactive 10/04/16) Constipation (Inactive) COPD (chronic obstructive pulmonary disease) (Chronic) Current smoker (Inactive 02/01/15) x 29 years Depressive disorder (Inactive) Diabetes mellitus, type II (Inactive) a. chronic noncompliance b. multiple episodes of admission for [facility] c. ? 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) Hyperlipemia (Acute) Hyperlipidemia (Inactive) statin started Non compliance with medical treatment (Inactive 02/01/15) Panic disorder (Inactive) PTSD (post-traumatic stress disorder) (Acute) Schizophrenia (Chronic) Umbilical hernia, incarcerated (Inactive) Ventral hernia without obstruction or gangrene (Inactive) Social History (Updated 07/20/19 @ 17:37 by Kevin Fuentes MD) Smoking/Tobacco Use Status: Current every day Tobacco Type: cigarettes Alcohol Intake: current Alcohol Intake frequency: 3 or more drinks per day Drug use: Current Sobriety Substance use type: does not use Do you feel safe at home: Yes Do you feel safe in your relationship?: Yes Additional Social history: Ms. Higginbotham has a significant other in the form of a boyfriend. Her only child, a son, reportedly over the last 1 1/2 years. Continued tobacco use. 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 Intermitted EtOH use. Exam Const General: cooperative and no acute distress HENMT Head: normocephalic and atraumatic Mouth: mucous membranes dry Eyes Conjunctivae: normal conjunctivae Sclera: normal sclerae Neck Neck: trachea midline and supple Resp Auscultation: clear to auscultation bilaterally, no rales, no rhonchi and no wheezes Cardio Jugular venous pressure: no JVD Rate: regular rate and not tachycardic Rhythm: regular rhythm GI Palpation: soft, not firm, no guarding, no masses, not rigid and nontender Skin General skin exam: no rashes or lesions noted Neuro General: alert, awake and tone normal Extrem General: no edema Psych Appearance: grossly normal Mental Status: mental status grossly normal Course Vital Signs Vital signs: Vital Signs Temperature 36.6 C 06/24/19 21:28 Pulse 70 06/24/19 21:28 Respiratory Rate 14 06/24/19 21:28 Blood Pressure 132/72 06/24/19 21:28 Pulse Oximetry 88 L 06/24/19 21:28 Temperature 36.6 C 06/24/19 21:28 Temperature Source Tympanic 06/24/19 21:28 Pulse 70 06/24/19 21:28 Respiratory Rate 14 06/24/19 21:28 Blood Pressure 132/72 06/24/19 21:28 Pulse Oximetry 88 L 06/24/19 21:28 Oxygen Delivery Method Room Air 06/24/19 21:28 Oxygen Flow Rate 0 06/24/19 21:28 Pain Level 7 06/24/19 21:28 Comment 06/24/19 21:28
[2019-06-24 22:00] VITALS: BP 140/81; PULSE 69; RESP 16; O2SAT 95
[2019-06-24 22:30] VITALS: BP 129/79; PULSE 74; RESP 16; O2SAT 94
[2019-06-24 22:59] LABS: Absolute Basophil Count 0.01 k/cumm (0.0-0.2); Absolute Eosinophil Count 0.03 k/cumm (0.0-0.7); Absolute Lymphocyte Count 0.78 k/cumm (1.2-3.4); Absolute Monocyte Count 0.13 k/cumm (0.11-0.7); Absolute Neutrophil Count 2.59 k/cumm (1.2-6.7); Basophils % 0.3; Eosinophils % 0.8; HCT 44.6 % (36.0-46.0); HGB 15.5 g/dL (12.0-15.5); Mean Corp. HGB Concentration 34.8 g/dL (32.0-36.0); Mean Corpuscular Hemoglobin 28.5 pg (27.0-33.0); Mean Corpuscular Volume 82.1 fL (80-95); Mean Platelet Volume 9.6 fL (8.0-11.0); Monocytes % 3.7; Neutrophils % 73.2; Platelet Count 260 x1000/uL (130-400); RBC 5.43 m/cumm (4.00-5.20); RBC Distribution Width 12.6 % (11.7-14.6); White Blood Cell Count 3.54 k/cumm (4.4-10.8)
[2019-06-24] MEDS: Normal Saline 1,000 ML 1000 ML IV (22:59)
[2019-06-24 23:00] VITALS: BP 121/78; PULSE 73; RESP 16; O2SAT 92
[2019-06-24] MEDS: Metoclopramide 10 MG/2 ML VIAL IVP (23:11)
[2019-06-24] MEDS: Normal Saline 50 ML (23:12)
[2019-06-24 23:14] LABS: ETHANOL BLOOD < 3.0 mg/dL (<3)
[2019-06-24 23:26] LABS: ALT 26 U/L (14-59); AST 16 U/L (15-37); Albumin 4.1 g/dL (3.4-5.0); Alkaline Phosphatase 95 U/L (46-116); Anion Gap 13.3 mmol/L (3-11); BUN 17 mg/dL (7-18); Bilirubin, Total 0.9 mg/dL (0.2-1.0); CO2 28.7 mmol/L (21.0-32.0); CREATININE 1.21 mg/dL (0.55-1.02); Calcium 9.7 mg/dL (8.5-10.1); Chloride 95 mmol/L (98-107); Estimated GFR 47.29 (mL/min/1.73m2); Glucose 476 mg/dL (70-100); Magnesium 2.1 mg/dL (1.8-2.4); Sodium 137 mmol/L (136-145); Total Protein 8.1 g/dL (6.4-8.2)
[2019-06-24 23:30] VITALS: BP 142/85; PULSE 64; RESP 16; O2SAT 100
[2019-06-25] VITALS (8 sets, daily range): BP systolic 119–139; BP diastolic 74–84; PULSE 68–71; RESP 16; O2SAT 95–98
[2019-06-25] MEDS: Normal Saline 1,000 ML 1000 ML IV (00:06)
[2019-06-25] MEDS: LORazepam 2 MG/ML VIAL 1 MG IVP (00:06)
[2019-06-25 01:57] LABS: Bilirubin Negative (Negative); Blood Trace-intact (Negative); Clarity Clear (Clear); Glucose 500 mg/dL (Negative); Ketones 80 mg/dL (Negative); Leukocyte Esterase Negative (Negative); Nitrite Negative (Negative); Specific Gravity 1.015 (1.005-1.025); Urobilinogen 0.2 EU/dL (Up TO 0.2); pH 6.5 (5-8)
[2019-06-25 02:11] LABS: Anion Gap 10.7 mmol/L (3-11); BUN 16 mg/dL (7-18); CO2 28.3 mmol/L (21.0-32.0); CREATININE 0.95 mg/dL (0.55-1.02); Calcium 8.2 mg/dL (8.5-10.1); Chloride 101 mmol/L (98-107); Glucose 316 mg/dL (70-100); Potassium 4.2 mmol/L (3.5-5.1); Sodium 140 mmol/L (136-145); WBC 0-2 HPF (0-5)
[2019-06-25 02:12] LABS: Bacteria Negative HPF (Negative); C & S Indicated? No; Casts Negative LPF (Negative); Crystals Negative HPF (Negative); Epithelial Cells Rare HPF (Negative); Mucus Negative (Negative)
[2019-06-25 02:31] LABS: *AMPHETAMINES SCREEN URINE Negative (Negative); *BARBITURATES SCREEN URINE Negative (Negative); *BENZODIAZEPINES SCREEN URINE Negative (Negative); Cannabinoids THC Negative (Negative); Cocaine Screen,Urine Negative (Negative); METHADONE URINE SCREEN POSITIVE (Negative); OPIATES URINE SCREEN Negative (Negative)
[2019-06-25 02:33] LABS: Tricyclic Antidepressants Negative (Negative)
== END 2019-06-25 02:39 | disposition home or self-care (01) ==
PROVIDERS: Emergency Provider Student in an Organized Health Care Education/Training Program; PCP Family Medicine
DX: E11.65 Type 2 diabetes mellitus with hyperglycemia (principal); R11.2 Nausea with vomiting, unspecified; F10.20 Alcohol dependence, uncomplicated; J44.9 Chronic obstructive pulmonary disease, unspecified; Z79.4 Long term (current) use of insulin
CPT/HCPCS: 80048; 80053; 80307; 96361; 96374; 96375; 99284; 80320; 81003; 81015; 83735; 85025; J2060; J2765

== ENCOUNTER 2019-07-20 08:07 | Inpatient (IN) | payer MEDICAID, SELFPAY ==
[2019-07-20] VITALS (80 sets, daily range): BP systolic 96–135; BP diastolic 53–79; PULSE 86–123; RESP 16–34; TEMP 36.9–37; O2SAT 91–100
--- NOTE | 2019-07-20 08:15 | DI.RAD_ITS ---
EXAM: XR CHEST 2V PA LATERAL INDICATION: hyperglycemia, MS change. COMPARISON: CHEST 2 VIEWS PA,LAT from 12/17/2017 TECHNIQUE: 2D digital imaging was performed. FINDINGS: The study is limited due to patient positioning. Heart size appears stable. Pulmonary vasculature i s within normal limits. Atelectasis is seen in the right lung base. No focal consolidating infiltra aliya, effusions or pneumothoraces are identified. No acute osseous abnormalities. IMPRESSION: Right basilar atelectasis. Limited examination due to patient positioning.
--- NOTE | 2019-07-20 08:36 | ED.GENADUL_ITS ---
Discharge Plan Disposition Patient Disposition: [facility] Condition: Serious Discharge Details Chief Complaint: Nausea/Vomit/Diar Clinical Impression: DKA (diabetic ketoacidoses) Admit Date/Time: 07/20/19 13:53 Admit Provider: Kevin Fuentes Attending Provider: Kevin Fuentes Primary Care Provider: Marni Doan ED Provider: Vincenzo Burns Medical Decision Making 49-year-old female diabetic presents via EMS with high glucose, vomiting, mental status changes over approximately 1 days time per her boyfriend. There is possible noncompliance with history of intermittent episodes of same over the past days. She is afebrile, blood pressure 131/75, slightly tachycardic at 115. She is clinically dehydrated in appearance. She is mildly agitated, poorly compliant with exam. Differential diagnosis includes DKA, dehydration, metabolic asia angements; must exclude other processes and patient referred for CT scan of the head, chest x-ray. IV access established, fluid bolus initiated, urine output established, patient started on insulin drip. Her diagnostic studies are notable for a lactic acidosis of 4.5 with pH of 7.0 on initial draw. Her initial management and vascular access was difficult. In a fit of agitation the patient pulled out her IV. Subsequent attempts to place a left external jugular IV, right femoral triple-lumen catheter and left triple lumen catheter failed due to the patient's ongoing movement and grabbing at instruments during the procedure. Restraints ordered for patient safety. Patient given anxiolysis. Peripheral IV reestablished. Second IV placed. Patient making urine. CXR: R base atelectasis vs infiltrate. CT head with question sinusitis, no acute intracranial abnormalities. Laboratory: Sodium 131, potassium 5.9, chloride 88, bicarb less than 5. REmainder labs pending after multiple clotted/hemolyzed samples. Dr Marcano consented for central line placement given anticipated need of multiple infusions, frequent blood draws. Case discussed with Dr. Fuentes who agrees with admission at this point for central line placement, ongoing management, repeat laboratories. ECG Data Attestation: I personally reviewed and interpreted this ECG (s) as follows: Interpretation: Sinus tachycardia, rate of 107, the QRS is narrow, the OH interval unremarkable. Nonspecific ST segment flattening in V2. HPI General Mode of arrival: EMS . Date/Time Provider Initiated Documentation: 07/20/19 08:39 . Information obtained by: EMS . History of Present Illness 49 year old F presents to the emergency department with the chief complaint of Vomiting, mental status changes, high glucose, described as similar to prior episodes, Patient started experiencing this hour(s) No relieving factors improve symptom(s), No exacerbating factors reported . Patient notes nausea/vomiting. Patient did receive the following treatments prior to arrival, none Related Data Home Medications Medication Instructions Recorded Confirmed epinephrine [EpiPen 2-Tejinder] 0.3 mg IM ONCE #1 pen 04/01/13 07/20/19 acetaminophen [Tylenol] 650 mg PO PRN PRN 04/16/15 07/20/19 methadone 25 mg PO DAILY 06/09/15 07/20/19 insulin aspart U-100 100 unit/mL 5 unit SUBCUT TID #2 box 06/14/18 07/20/19 (3 mL) subcutaneous pen blood-glucose meter [FreeStyle #1 each 09/02/18 10/16/18 Lite Meter] lancets [Lancets, Super Thin] #50 each 10/26/18 blood sugar diagnostic #400 strip 02/16/19 lancets 28 gauge #100 each 04/04/19 polyethylene glycol 3350 17 gram 17 gm PO DAILY PRN #30 each 04/04/19 07/20/19 oral powder packet docusate sodium [Colace] 100 mg PO BID #60 cap 04/23/19 07/20/19 insulin glargine 100 unit/mL (3 38 unit SC QHS #15 ml 07/02/19 07/20/19 mL) subcutaneous pen pen needle, diabetic 31 gauge x #100 ea 07/09/19 1/3 lorazepam 1 mg tablet 1 mg PO TID PRN #21 tab 07/16/19 07/20/19 Previous Rx's Medication Instructions Recorded insulin aspart U-100 100 unit/mL 5 unit SUBCUT TID #2 box 06/14/18 (3 mL) subcutaneous pen blood-glucose meter [FreeStyle #1 each 09/02/18 Lite Meter] lancets [Lancets, Super Thin] #50 each 10/26/18 blood sugar diagnostic #400 strip 02/16/19 lancets 28 gauge #100 each 04/04/19 polyethylene glycol 3350 17 gram 17 gm PO DAILY PRN #30 each 04/04/19 oral powder packet docusate sodium [Colace] 100 mg PO BID #60 cap 04/23/19 insulin glargine 100 unit/mL (3 38 unit SC QHS #15 ml 07/02/19 mL) subcutaneous pen pen needle, diabetic 31 gauge x #100 ea 07/09/19 1/3 lorazepam 1 mg tablet 1 mg PO TID PRN #21 tab 07/16/19 Allergies Allergy/AdvReac Type Severity Reaction Status Date / Time venom-honey bee Allergy Intermediate Unverified 07/20/19 13:56 [bee venom (honey bee)] Sulfa (Sulfonamide Allergy Rash & Unverified 07/20/19 13:56 Antibiotics) Shortness of Breath hydroxyzine HCl AdvReac Intermediate nausea/vomiting, Unverified 07/20/19 13:56 [From Vistaril] palpitations General Stated Complaint: Nausea/Vomit/Diar LAURIE: 3 Review of Systems Narrative: Patient poorly cooperative with history taking. Boyfriend is briefly at the bedside and reports intermittent vomiting, high sugars at home. Patient denies pain. Unobtainable due to mental status [facility] Medical History Anxiety (Chronic) COPD (chronic obstructive pulmonary disease) (Chronic) Depression (Chronic) Diabetes (Chronic) Hyperlipemia (Acute) PTSD (post-traumatic stress disorder) (Acute) Schizophrenia (Chronic) Social History Smoking/Tobacco Use Status: Current every day Tobacco Type: cigarettes Alcohol Intake: current Alcohol Intake frequency: 3 or more drinks per day Drug use: Current Sobriety Substance use type: does not use Do you feel safe at home: Yes Do you feel safe in your relationship?: Yes Exam Narrative Exam Narrative: GEN: awake, alert poorly groomed, somnolent, agitated. HEAD: Normocephalic, atraumatic ENT: Mucous membranes dry, oropharynx unremarkable, External ear exam unremarkable EYES: PERRL, EOMI NECK: Full ROM, no REZA, no menigismus CHEST/RESP: Nontender, clear to auscultation bilateral, no wheeze/rhonchi/rales, + hyperpnea CARDIOVASCULAR: Tachycardic, no murmur, rub bebo. 2+ Rad pulse bilateral ABDOMEN: Soft, nontender, no mass. +Bowel sounds EXT: Full ROM, no edema, no rash Neuro: Grossly normal neurologic exam, moves all 4 extremities. Psych: Unable to assess Course Vital Signs Vital signs: Vital Signs Temperature 36.9 C 07/20/19 08:07 Pulse 115 H 07/20/19 08:07 Respiratory Rate 24 07/20/19 08:07 Blood Pressure 131/75 07/20/19 08:07 Pulse Oximetry 98 07/20/19 08:07 Temperature 36.9 C 07/20/19 08:07 Temperature Source Skin 07/20/19 08:07 Pulse 115 H 07/20/19 08:07 Respiratory Rate 24 07/20/19 08:07 Respiratory Effort Non-Labored 07/20/19 08:11 Blood Pressure 131/75 07/20/19 08:07 Blood Pressure Position Sitting 07/20/19 08:07 Pulse Oximetry 98 07/20/19 08:07 Oxygen Delivery Method Room Air 07/20/19 08:07 Oxygen Flow Rate 0 07/20/19 08:07 Critical Care Time Critical Care Time Critical Care Time: Yes Total Critical Care Time: 50 Attestation: Bedside management, review of records, discussion with family and consultants
[2019-07-20 08:41] LABS: HCO3 (Venous) 6 mmol/L (22-28); O2 Sat (Venous) 91 % (70-80); TCO2 (Venous) 6 mmol/L (22-29); pCO2 (Venous) 22 mm/Hg (34-47); pH (Venous) 7.04 (7.32-7.43); pO2 (Venous) 75 mm/Hg (28-44)
[2019-07-20] MEDS: Normal Saline 1,000 ML 1000 ML IV ×3 (08:42→12:11)
[2019-07-20] MEDS: Ondansetron 4 MG/2 ML VIAL IVP (08:42)
[2019-07-20 08:44] LABS: Lactate 4.5 mmol/L (0.6-1.4)
--- NOTE | 2019-07-20 09:20 | DI.CT_ITS ---
EXAM: CT HEAD WO CLINICAL HISTORY: mental status change TECHNIQUE: The exam was performed according to the usual protocol without contrast. COMPARISON: No exams were available for comparison FINDINGS: There is normal le-white matter differentiation. No acute intracranial hemorrhage, midline shift, or mass effect. The ventricles are intact. The basilar cisterns are patent. There is mucosal thick ening seen in the ethmoid air cells and the right maxillary sinus. The remaining visualized paranasa l sinuses are clear as are the mastoid air cells. The calvarium is intact. IMPRESSION: 1. No acute intracranial process. 2. Mild sinusitis.
--- NOTE | 2019-07-20 09:45 | DI.VRAD_ITS ---
PROCEDURE INFORMATION: Exam: CT Head Without Contrast Exam date and time: 07/20/2019 9:29 AM Clinical history: 49 years old, female; Other: Mental status change TECHNIQUE: Imaging protocol: Computed tomography of the head without contrast. Radiation optimization: All CT scans at this facility use at least one of these dose optimization techniques: automated exposure control; mA and/or kV adjustment per patient size (includes targeted exams where dose is matched to clinical indication); or iterative reconstruction. COMPARISON: No relevant prior studies available. FINDINGS: Brain: Normal. No hemorrhage. Unremarkable white matter. No mass effect. Ventricles: Normal. No ventriculomegaly. Bones/joints: Unremarkable. No acute fracture. Sinuses: Opacities in the ethmoid sinuses and maxillary sinuses may represent sinusitis. Mastoid air cells: Visualized mastoid air cells are well aerated. Soft tissues: Unremarkable. IMPRESSION: Opacities in the ethmoid sinuses and maxillary sinuses may represent sinusitis. No acute intracranial hemorrhage Dictated and Authenticated by: Mario Willoughby MD. Ordering:MARTINEZ Loya MD
--- NOTE | 2019-07-20 09:58 | DI.VRAD_ITS ---
PROCEDURE INFORMATION: Exam: XR Chest, 2 Views Exam date and time: 07/20/2019 9:47 AM Clinical history: 49 years old, female; Other: Hyperglycemia, mental status change TECHNIQUE: Imaging protocol: XR of the chest Views: 2 views. COMPARISON: CR CHEST 2 VIEWS PA,LAT 12/17/2017 11:06 AM FINDINGS: Lungs: Opacity in the right base may represent atelectasis or pneumonia. Pleural space: Unremarkable. No pleural effusion. No pneumothorax. Heart/Mediastinum: Cardiomegaly and tortuous aorta Bones/joints: Unremarkable. Other findings: Patient is leaning to the right IMPRESSION: Opacity in the right base may represent atelectasis or pneumonia. Dictated and Authenticated by: Mario Willoughby MD. Ordering:MARTINEZ Loya MD
[2019-07-20 11:09] LABS: Chloride 88 mmol/L (98-107); Potassium 5.9 mmol/L (3.5-5.1); Sodium 131 mmol/L (136-145)
[2019-07-20] MEDS: INSULIN REGULAR IN 0.9 % NACL 100 UNIT/100 ML BAG 7 UNIT IV (11:12)
[2019-07-20 11:15] LABS: Anion Gap 38.00001 mmol/L (3-11); CO2 < 5.0 mmol/L (21.0-32.0)
[2019-07-20] MEDS: LORazepam 2 MG/ML VIAL 0.5 MG IVP (11:19)
[2019-07-20 11:38] LABS: Bilirubin Small (Negative); Blood Trace-intact (Negative); Clarity Clear (Clear); Glucose 500 mg/dL (Negative); Ketones >=160 mg/dL (Negative); Leukocyte Esterase Negative (Negative); Nitrite Negative (Negative); Specific Gravity 1.015 (1.005-1.025); Urobilinogen 0.2 EU/dL (Up TO 0.2); pH 5.5 (5-8)
[2019-07-20 11:53] LABS: Bacteria Negative HPF (Negative); C & S Indicated? No; Casts Negative LPF (Negative); Crystals Few Amorphous HPF (Negative); Epithelial Cells Rare HPF (Negative); Mucus Negative (Negative); Other Cells Few Transitional (Negative); RBC 0-2 (0-2); WBC Negative HPF (0-5)
[2019-07-20] MEDS: cefTRIAXone 1 GM/50 ML BAG IVPB (12:08)
--- NOTE | 2019-07-20 15:20 | SCONE_ITS ---
Date of service: 07/20/19 Time of Service: 15:20 Assessment and Plan Assessment and plan (1) Lack of intravenous access: Status: Acute Assessment and plan: A\\ 49 year old admitted with DKA and hypotension who had poor peripheral IV access and had the potential to get worse and need pressors. Patient also will require frequent blood draws. I was asked to place a central line and a-line P\\ Left subclavian triple lumen central line placement and left radial artery a-line placement Unable to obtain consent because patient is sedated. Only arouses to pain at the moment. History of Present Illness History of Present Illness Chief Complaint: DKA, poor peripheral IV access, possible need for pressors Narrative: 49-year-old female diabetic presents via EMS with high glucose, vomiting, mental status changes over approximately 1 days time per her boyfriend. There is possible noncompliance with history of intermittent episodes of same over the past days. In the ER she was afebrile, blood pressure 131/75, slightly tachycardic at 115. She is clinically dehydrated in appearance. She is mildly agitated, poorly compliant with exam. Her diagnostic studies were notable for a lactic acidosis of 4.5 with pH of 7.0 on initial draw. Her initial management and vascular access was difficult. In a fit of agitation the patient pulled out her IV. Subsequent attempts to place a left external jugular IV, right femoral triple-lumen catheter and left triple lumen catheter failed due to the patient's ongoing movement and grabbing at instruments during the procedure. Restraints ordered for patient safety. Patient given anxiolytics. Peripheral IV reestablished. Second IV placed. Patient making urine. CXR: R base atelectasis vs infiltrate. CT head with question sinusitis, no acute intracranial abnormalities. Due to poor peripheral access and potential for worsening condition and need for pressors and frequent lab draws I was asked to place a Central line and a-line. Consults Consult date: 07/20/19 Requesting physician: Kevin Fuentes Review of Systems Unobtainable due to mental status (patient is sedated and arousable to pain only at this time) [facility] Medical History Anxiety (Chronic) COPD (chronic obstructive pulmonary disease) (Chronic) Depression (Chronic) Diabetes (Chronic) Hyperlipemia (Acute) PTSD (post-traumatic stress disorder) (Acute) Schizophrenia (Chronic) Social History Smoking/Tobacco Use Status: Current every day Tobacco Type: cigarettes Alcohol Intake: current Alcohol Intake frequency: 3 or more drinks per day Drug use: Current Sobriety Substance use type: does not use Do you feel safe at home: Yes Do you feel safe in your relationship?: Yes Exam Const Other: Patient is sedated. She moves to painful stimuli only right now HENMT Head: normocephalic and atraumatic Resp Auscultation: clear to auscultation bilaterally Cardio Rate: regular rate Rhythm: regular rhythm Extrem General: no clubbing, cyanosis or edema Results Last Vital Signs Temp 98.4 F 07/20/19 08:07 Pulse 105 H 07/20/19 14:00 Resp 23 07/20/19 14:01 BP 116/71 07/20/19 14:00 Pulse Ox 100 07/20/19 13:30 Labs Result diagrams: 07/20/19 08:30 07/20/19 10:59 Labs: Laboratory Results - last 24 hr 07/20/19 07/20/19 07/20/19 08:30 08:30 08:30 WBC RBC Hgb Hct MCV MCH MCHC RDW Plt Count MPV Immature Gran % Neutrophils % Band Neutrophils % Lymphocytes % Atypical Lymphs % Monocytes % Eosinophils % Basophils % Metamyelocytes % Myelocytes % Promyelocytes % Absolute Neutrophils Absolute Lymphocytes Absolute Monocytes Absolute Eosinophils Absolute Basophils Nucleated RBCs Differential Comment Other Cell Type RBC Morphology Polychromasia Hypochromasia Poikilocytosis Basophilic Stippling Anisocytosis Microcytosis Macrocytosis Spherocytes Target Cells Tear Drop Cells Ovalocytes Stomatocytes [place] Bodies Adal Cells Acanthocytes (Sp[place]) Schistocytes Sample Site pCO2 pO2 O2 Saturation ABG pH ABG HCO3 ABG Total CO2 ABG Base Excess VBG pH 7.04 L VBG pCO2 22 L VBG pO2 75 H VBG HCO3 6 L VBG Total CO2 6 L VBG O2 Saturation 91 H VBG Base Excess Oxygen Liter Flow FiO2 Sodium Cancelled Potassium Cancelled Chloride Cancelled Carbon Dioxide Cancelled Anion Gap Cancelled BUN Cancelled Creatinine Cancelled Estimated GFR/1.73 m2 Cancelled Glucose Cancelled Lactate 4.5 H* Calcium Cancelled Magnesium Cancelled Total Bilirubin Cancelled AST Cancelled ALT Cancelled Alkaline Phosphatase Cancelled Troponin I Cancelled Total Protein Cancelled Albumin Cancelled Urine Color Urine Clarity Urine pH Ur Specific [place] Urine Protein Urine Ketones Urine Blood Urine Nitrite Urine Bilirubin Urine Urobilinogen Ur Leukocyte Esterase Urine RBC Urine WBC Ur Epithelial Cells Urine Crystals Urine Bacteria Urine Casts Urine Mucus Urine Other Ur Culture Indicated? Urine Glucose 07/20/19 07/20/19 07/20/19 08:30 08:41 08:48 WBC Cancelled RBC Cancelled Hgb Cancelled Hct Cancelled MCV Cancelled MCH Cancelled MCHC Cancelled RDW Cancelled Plt Count Cancelled MPV Cancelled Immature Gran % Cancelled Neutrophils % Cancelled Band Neutrophils % Cancelled Lymphocytes % Cancelled Atypical Lymphs % Cancelled Monocytes % Cancelled Eosinophils % Cancelled Basophils % Cancelled Metamyelocytes % Cancelled Myelocytes % Cancelled Promyelocytes % Cancelled Absolute Neutrophils Cancelled Absolute Lymphocytes Cancelled Absolute Monocytes Cancelled Absolute Eosinophils Cancelled Absolute Basophils Cancelled Nucleated RBCs Cancelled Differential Comment Cancelled Other Cell Type Cancelled RBC Morphology Cancelled Polychromasia Cancelled Hypochromasia Cancelled Poikilocytosis Cancelled Basophilic Stippling Cancelled Anisocytosis Cancelled Microcytosis Cancelled Macrocytosis Cancelled Spherocytes Cancelled Target Cells Cancelled Tear Drop Cells Cancelled Ovalocytes Cancelled Stomatocytes Cancelled [place] Bodies Cancelled Adal Cells Cancelled Acanthocytes (Spur) Cancelled Schistocytes Cancelled Sample Site pCO2 pO2 O2 Saturation ABG pH ABG HCO3 ABG Total CO2 ABG Base Excess VBG pH VBG pCO2 VBG pO2 VBG HCO3 VBG Total CO2 VBG O2 Saturation VBG Base Excess Oxygen Liter Flow FiO2 Sodium Cancelled Potassium Cancelled Chloride Cancelled Carbon Dioxide Cancelled Anion Gap Cancelled BUN Cancelled Creatinine Cancelled Estimated GFR/1.73 m2 Cancelled Glucose Cancelled Lactate Calcium Cancelled Magnesium Cancelled Total Bilirubin Cancelled AST Cancelled ALT Cancelled Alkaline Phosphatase Cancelled Troponin I Cancelled Cancelled Total Protein Cancelled Albumin Cancelled Urine Color Urine Clarity Urine pH Ur Specific [place] Urine Protein Urine Ketones Urine Blood Urine Nitrite Urine Bilirubin Urine Urobilinogen Ur Leukocyte Esterase Urine RBC Urine WBC Ur Epithelial Cells Urine Crystals Urine Bacteria Urine Casts Urine Mucus Urine Other Ur Culture Indicated? Urine Glucose 07/20/19 07/20/19 07/20/19 08:48 10:59 10:59 WBC Cancelled RBC Cancelled Hgb Cancelled Hct Cancelled MCV Cancelled MCH Cancelled MCHC Cancelled RDW Cancelled Plt Count Cancelled MPV Cancelled Immature Gran % Cancelled Neutrophils % Cancelled Band Neutrophils % Cancelled Lymphocytes % Cancelled Atypical Lymphs % Cancelled Monocytes % Cancelled Eosinophils % Cancelled Basophils % Cancelled Metamyelocytes % Cancelled Myelocytes % Cancelled Promyelocytes % Cancelled Absolute Neutrophils Cancelled Absolute Lymphocytes Cancelled Absolute Monocytes Cancelled Absolute Eosinophils Cancelled Absolute Basophils Cancelled Nucleated RBCs Cancelled Differential Comment Cancelled Other Cell Type Cancelled RBC Morphology Cancelled Polychromasia Cancelled Hypochromasia Cancelled Poikilocytosis Cancelled Basophilic Stippling Cancelled Anisocytosis Cancelled Microcytosis Cancelled Macrocytosis Cancelled Spherocytes Cancelled Target Cells Cancelled Tear Drop Cells Cancelled Ovalocytes Cancelled Stomatocytes Cancelled [place] Bodies Cancelled Adal Cells Cancelled Acanthocytes (Spur) Cancelled Schistocytes Cancelled Sample Site Cancelled pCO2 Cancelled pO2 Cancelled O2 Saturation Cancelled ABG pH Cancelled ABG HCO3 Cancelled ABG Total CO2 Cancelled ABG Base Excess Cancelled VBG pH VBG pCO2 VBG pO2 VBG HCO3 VBG Total CO2 VBG O2 Saturation VBG Base Excess Oxygen Liter Flow Cancelled FiO2 Cancelled Sodium 131 L Potassium 5.9 H Chloride 88 L Carbon Dioxide < 5.0 L* Anion Gap 38.33911 H BUN Creatinine Estimated GFR/1.73 m2 Glucose Lactate Calcium Magnesium Total Bilirubin AST ALT Alkaline Phosphatase Troponin I Total Protein Albumin Urine Color Urine Clarity Urine pH Ur Specific [place] Urine Protein Urine Ketones Urine Blood Urine Nitrite Urine Bilirubin Urine Urobilinogen Ur Leukocyte Esterase Urine RBC Urine WBC Ur Epithelial Cells Urine Crystals Urine Bacteria Urine Casts Urine Mucus Urine Other Ur Culture Indicated? Urine Glucose 07/20/19 07/20/19 11:10 12:23 WBC Cancelled RBC Cancelled Hgb Cancelled Hct Cancelled MCV Cancelled MCH Cancelled MCHC Cancelled RDW Cancelled Plt Count Cancelled MPV Cancelled Immature Gran % Cancelled Neutrophils % Cancelled Band Neutrophils % Cancelled Lymphocytes % Cancelled Atypical Lymphs % Cancelled Monocytes % Cancelled Eosinophils % Cancelled Basophils % Cancelled Metamyelocytes % Cancelled Myelocytes % Cancelled Promyelocytes % Cancelled Absolute Neutrophils Cancelled Absolute Lymphocytes Cancelled Absolute Monocytes Cancelled Absolute Eosinophils Cancelled Absolute Basophils Cancelled Nucleated RBCs Cancelled Differential Comment Cancelled Other Cell Type Cancelled RBC Morphology Cancelled Polychromasia Cancelled Hypochromasia Cancelled Poikilocytosis Cancelled Basophilic Stippling Cancelled Anisocytosis Cancelled Microcytosis Cancelled Macrocytosis Cancelled Spherocytes Cancelled Target Cells Cancelled Tear Drop Cells Cancelled Ovalocytes Cancelled Stomatocytes Cancelled [place] Bodies Cancelled [place] Cells Cancelled Acanthocytes (Spur) Cancelled Schistocytes Cancelled Sample Site pCO2 pO2 O2 Saturation ABG pH ABG HCO3 ABG Total CO2 ABG Base Excess VBG pH VBG pCO2 VBG pO2 VBG HCO3 VBG Total CO2 VBG O2 Saturation VBG Base Excess Oxygen Liter Flow FiO2 Sodium Potassium Chloride Carbon Dioxide Anion Gap BUN Creatinine Estimated GFR/1.73 m2 Glucose Lactate Calcium Magnesium Total Bilirubin AST ALT Alkaline Phosphatase Troponin I Total Protein Albumin Urine Color Yellow Urine Clarity Clear Urine pH 5.5 Ur Specific [place] 1.015 Urine Protein 30 H Urine Ketones >=160 H Urine Blood Trace-intact H Urine Nitrite Negative Urine Bilirubin Small H Urine Urobilinogen 0.2 Ur Leukocyte Esterase Negative Urine RBC 0-2 Urine WBC Negative Ur Epithelial Cells Rare Urine Crystals Few amorphous Urine Bacteria Negative Urine Casts Negative Urine Mucus Negative Urine Other Few transitional Ur Culture Indicated? No Urine Glucose 500 H Procedures Arterial Line Time out performed: Yes Size (Gauge): 14 Technique used: guide wire technique Post-Procedure: line sutured into place and dry sterile dressing placed Patient tolerated procedure: well Complications: none Site: left Additional comments: I was unable to get consent from patient due to her being sedated. This was done under emergency bases for patient care. Her left wrist was prepped and draped in a sterile surgical fashion with chlorhexidine. 3 cc of 1% lidocaine was injected into the dermis over the palpable radial artery. A 14-gauge A-line kit was then used. The needle was placed into the radial artery and a flush was noted I tried to advanced the guidewire into it but the artery blew proximally. The needle was removed and pressure was applied. The needle was then placed into the radial artery proxim al to the first attempt. A flash of blood was noted and the guidewire was advanced without difficulty. The catheter was advanced over the guidewire into the artery. The guidewire and needle were removed and tubing was attached. Prior to setting up the A-line fluids 20 cc of blood was removed with 210 cc syringes for blood cultures. The A-line was then attached to the pressure bag. The catheter was secured with a César needle. Her skin was cleaned and dried and a dressing was applied. The tubing was then taped to her skin to secure it. The patient tolerated the procedure well and there were no immediate complications. Central Line Placement Left SC: Time out performed: Yes Patient placed on monitor/pulse ox: Yes MD prep: mask, gown and gloves Central line prep: Chlorhexidine scrub and sterile drapes applied Local anesthesia used: lidocaine 1% Amount of anesthesia used (ml): 10 Ultrasound used for placement: No Central line lumen inserted: triple Post procedure: sutured in place, good blood return, all ports aspirated, flushed, capped and sterile dressing applied Post procedure x-ray: tip of catheter in good position and no pneumothorax seen Patient tolerated procedure: well Complications: none
[2019-07-20 15:23] LABS: Abs Immature Grans 0.07 k/cumm (0.0-0.09); HCT 38.1 % (36.0-46.0); HGB 12.6 g/dL (12.0-15.5); Mean Corp. HGB Concentration 33.1 g/dL (32.0-36.0); Mean Corpuscular Hemoglobin 28.2 pg (27.0-33.0); Mean Corpuscular Volume 85.2 fL (80-95); Mean Platelet Volume 9.7 fL (8.0-11.0); RBC 4.47 m/cumm (4.00-5.20); RBC Distribution Width 12.8 % (11.7-14.6); White Blood Cell Count 9.85 k/cumm (4.4-10.8)
--- NOTE | 2019-07-20 15:30 | DI.RAD_ITS ---
EXAM: XR PORTABLE CHEST AP POST LINE INDICATION: central line confirmation. COMPARISON: XR CHEST 2V PA LATERAL from 07/20/2019 TECHNIQUE: 2D digital imaging was performed. FINDINGS: There is poor inspiration. Heart size and pulmonary vasculature are within normal limits. There is a left subclavian central venous catheter. The tip of the catheter is seen at the junction of the br achiocephalic vein and superior vena cava. The right lung is clear. There is increased opacity in t he left lung base. This may be due to overlying soft tissue. Left basilar infiltrate or left pleura l effusion is considered less likely. IMPRESSION: Poor inspiration. Left basilar opacity. This may be due to overlying soft tissue. Left basilar inf iltrate or pleural effusion are considered less likely.
[2019-07-20 15:31] LABS: HCO3 7 mmol/L (22-28); Site Arterial Line; pH 7.22 (7.35-7.45); pO2 81 mmHg (83-108); sO2 96 % (94-98); tCO2 7 mmol/L (22-29)
[2019-07-20] MEDS: Normal Saline 1,000 ML 999 ML IV (15:31)
[2019-07-20] MEDS: Heparin 5,000 UNITS/ML VIAL 5000 UNITS SC ×2 (15:37→23:34)
[2019-07-20] MEDS: cefTRIAXone 2 GM/50 ML BAG IVPB (15:38)
[2019-07-20] MEDS: INSULIN REGULAR IN 0.9 % NACL 100 UNIT/100 ML BAG 8.5 UNIT IV (15:40)
[2019-07-20 15:43] LABS: PHOSPHORUS 3.3 mg/dL (2.6-4.7)
[2019-07-20 15:47] LABS: ALT 20 U/L (14-59); AST 9 U/L (15-37); Albumin 3.1 g/dL (3.4-5.0); Alkaline Phosphatase 108 U/L (46-116); Anion Gap 30.3 mmol/L (3-11); BUN 28 mg/dL (7-18); Bilirubin, Total 0.5 mg/dL (0.2-1.0); CO2 7.7 mmol/L (21.0-32.0); CREATININE 2.01 mg/dL (0.55-1.02); Calcium 8.3 mg/dL (8.5-10.1); Chloride 103 mmol/L (98-107); Estimated GFR 26.33 (mL/min/1.73m2); Glucose 488 mg/dL (70-100); Magnesium 2.2 mg/dL (1.8-2.4); Potassium 3.3 mmol/L (3.5-5.1); Sodium 141 mmol/L (136-145); Total Protein 6.9 g/dL (6.4-8.2)
[2019-07-20 15:49] LABS: Glucose 1041 mg/dL (70-100)
[2019-07-20 15:49] LABS: Troponin I < 0.05 ng/mL (0.00-0.06)
[2019-07-20 15:50] LABS: Platelet Count 271 x1000/uL (130-400)
[2019-07-20 15:50] LABS: pCO2 17 mmHg (34-47)
[2019-07-20 15:51] LABS: Absolute Lymphocyte Count 0.99 k/cumm (1.2-3.4); Absolute Monocyte Count 0.49 k/cumm (0.11-0.7); Absolute Neutrophil Count 8.37 k/cumm (1.2-6.7); Diff Comment Manual Differential; Lactate 1.4 mmol/L (0.6-1.4); RBC Morphology Normal
--- NOTE | 2019-07-20 16:13 | DI.VRAD_ITS ---
PROCEDURE INFORMATION: Exam: XR Chest, 1 View Exam date and time: 07/20/2019 3:27 PM Clinical history: 49 years old, female; Other vascular access device placement or adjustment; Central line, non-tunnelled TECHNIQUE: Imaging protocol: XR of the chest Views: 1 view. COMPARISON: CR XR CHEST 2V PA LATERAL 07/20/2019 9:42 AM FINDINGS: Tubes, catheters and devices: LEFT subclavian central venous catheter, tip in the distal LEFT brachiocephalic vein - superior vena cava junction. Lungs: RIGHT lung is clear. Increased density over the LEFT lower lung field may represent overlying soft tissue. Small LEFT pleural effusion or lower lobe infiltrate not entirely exclude the less likely. Pleural space: No pneumothorax. No RIGHT pleural effusion. Heart/Mediastinum: Unremarkable. No cardiomegaly. Bones/joints: No acute osseous findings. IMPRESSION: 1. LEFT subclavian and is catheter. 2. Increased density over the LEFT lower lung field likely representing overlying soft tissue. Small LEFT pleural effusion or lower lobe infiltrate not entirely exclude the less likely. Dictated and Authenticated by: Antonia Spencer MD. Ordering:ALICIA Chun MD
[2019-07-20] MEDS: DOXYCYCLINE 100 MG in Normal Saline 100 ML IVPB (16:36)
[2019-07-20] MEDS: SODIUM CHLORIDE 0.45% 1,000 ML 250 ML IV (16:37)
--- NOTE | 2019-07-20 16:47 | W.PM.HP.N ---
Date of service: 07/20/19 Time of Service: 16:48 Assessment and Plan Assessment and plan (1) DKA (diabetic ketoacidoses): Status: Acute Assessment and plan: Evidence of significant hyperglycemia, urinary ketones, lactic acidosis, and significant anion gap in patient with type 2 diabetes. This may be in the setting of infection, both with pneumonia and potential sinusitis, dehydration due to nausea and vomiting, and potential component of insulin noncompliance. -Has been aggressively hydrated. Continue aggressive IVF's, with change to half-normal saline with supplemental potassium based on repeat BMP results, with normal Na, and K+ 3.3. -Continue insulin drip following [facility] [place] protocol, with change to D5 half-normal saline when glucose approaches 200. Continue serial BMP's, and monitor for improvement and eventual closing and anion gap. -Continue treatment of underlying infections. Check a UDS. Rule out with serial cardiac biomarkers to ensure lack of ACS is driving force for hyperglycemia. -Due to access issues, central line and arterial line were obtained by surgery - consult is appreciated. -Continue symptomatic treatment with IV antiemetics and pain control as needed. Monitor mental status carefully as well. -Overall appears improved, with a pH that is improved to 7.2, and anion gap that is dropped to 30, and normalization of lactate. Continue to monitor carefully. (2) Pneumonia: Status: Acute Assessment and plan: Evidence of a right basilar opacity. This may represent CAP and the driving force for patient's presentation of significant hyperglycemia with evidence of DKA. However, as patient had significant episodes of vomiting need to also consider the potential for aspiration as well. Also with evidence of potential sinusitis by CT of the head. -We will initiate on Levaquin which should cover the patient's pulmonary process as well as potential for sinus infection. Ms. Higginbotham has a history of IVDA and opiate abuse, maintain on chronic methadone. Need to monitor QT carefully. Maintain patient on cardiac monitoring. We will also add metronidazole for anaerobic coverage for potential aspiration as well. (3) OMID (acute kidney injury): Status: Acute Assessment and plan: In setting of profound dehydration and DKA. Aggressive fluid resuscitation as above, and monitor renal function carefully. Renally dose medications when appropriate, and avoid nephrotoxins. (4) DVT prophylaxis: Status: Acute Assessment and plan: SC heparin. History of Present Illness History of Present Illness Chief Complaint: Nausea, Vomiting, Hyperglycemia Narrative: 49-year-old woman with a past medical history significant for diabetes and medical noncompliance, being admitted from [facility] emergency department on 07/20 with a diagnosis of DKA and pneumonia. Ms. Higginbotham has a Past Medical History significant for IDDM with prior hospitalizations with [facility], precipitated by infection and insulin noncompliance, GERD, chronic anemia, COPD with ongoing tobacco use, schizophrenia, anxiety, and PTSD. The patient also has a prior history of IVDA and heroin/opiate abuse, currently on methadone and reportedly in remission over the past year. She has a prior diagnosis of the presumed endocarditis, having refused a SAMANTHA, as well as previous infections with cellulitis and pneumonia. She also has a history of EtOH abuse, again reportedly in remission. She was diagnosed with a ventral hernia in the past as well. Ms. Higginbotham has been known to leave prior hospitalizations AMA, and has a long history of medication noncompliance. The patient initially presented to the ED on the first of this month with acute onset of nausea and vomiting, and found to be hyperglycemic. Her lab work was fairly unremarkable, and she did not have any evidence of an anion gap. She also at that time admitted being noncompliant with her insulin as prescribed. She was treated and discharged in improved condition. According to her boyfriend, Ms. Higginbotham ran out of insulin last week, experiencing some significant hyperglycemia prior to being prescribed her medication and initiating back on her insulin, which she reported being compliant with over the course of the past week. Although her blood sugars have been running high, they have not been significantly elevated and certainly not in or over the 400 range. However starting yesterday she started to feel unwell, and began to experience significantly higher blood sugars on monitor despite reported compliance with her insulin. Overnight she also became nauseous and spend a significant time vomiting. She also had an altered mental status, reportedly somnolent and not quite herself. She was brought into the ED for further evaluation. Work-up in the ED was initially difficult as IV access was an issue, with hemolyzed blood samples. However, lab work subsequently showed evidence of significant hyperglycemia with a blood sugar of 1041, undetectably low bicarb with an anion gap of 38, lactate of 4.5, and a VBG with a pH of 7. Imaging with CXR showed a right basilar opacity that was deemed atelectasis vs. Pneumonia, and CT of the head showed opacities in both the ethmoid and maxillary sinuses consistent with potential sinusitis. At that time the patient was referred for admission for further evaluation and treatment. Review of Systems Unobtainable due to mental condition [facility] Medical History (Updated 07/20/19 @ 17:45 by Kevin Fuentes MD) Alcohol abuse (Inactive) Alcohol dependence in remission (Inactive) Anxiety (Inactive) Cellulitis of left hand (Inactive 02/01/15) a. secondary to cat bite vs. IVDU b. has 13 cats at home c. denies ongoing IVDU at this time Closed fracture of distal end of right fibula (Inactive 10/04/16) Constipation (Inactive) COPD (chronic obstructive pulmonary disease) (Chronic) Current smoker (Inactive 02/01/15) x 29 years Depressive disorder (Inactive) Diabetes mellitus, type II (Inactive) a. chronic noncompliance b. multiple episodes of admission for [facility] c. ? 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) Hyperlipemia (Acute) Hyperlipidemia (Inactive) statin started Non compliance with medical treatment (Inactive 02/01/15) Panic disorder (Inactive) PTSD (post-traumatic stress disorder) (Acute) Schizophrenia (Chronic) Umbilical hernia, incarcerated (Inactive) Ventral hernia without obstruction or gangrene (Inactive) Social History (Updated 07/20/19 @ 17:37 by Kevin Fuentes MD) Smoking/Tobacco Use Status: Current every day Tobacco Type: cigarettes Alcohol Intake: current Alcohol Intake frequency: 3 or more drinks per day Drug use: Current Sobriety Substance use type: does not use Do you feel safe at home: Yes Do you feel safe in your relationship?: Yes Additional Social history: Ms. Higginbotham has a significant other in the form of a boyfriend. Her only child, a son, reportedly over the last 1 1/2 years. Continued tobacco use. 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 Intermitted EtOH use. Meds Home Medications and Allergies Home Medications Medication Instructions Recorded Confirmed Type epinephrine [EpiPen 2-Tejinder] 0.3 mg IM ONCE #1 pen 04/01/13 07/20/19 History acetaminophen [Tylenol] 650 mg PO PRN PRN 04/16/15 07/20/19 History methadone 25 mg PO DAILY 06/09/15 07/20/19 History insulin aspart U-100 100 unit/mL 5 unit SUBCUT TID #2 box 06/14/18 07/20/19 Rx (3 mL) subcutaneous pen blood-glucose meter [FreeStyle #1 each 09/02/18 10/16/18 Rx Lite Meter] lancets [Lancets, Super Thin] #50 each 10/26/18 Rx blood sugar diagnostic #400 strip 02/16/19 Rx lancets 28 gauge #100 each 04/04/19 Rx polyethylene glycol 3350 17 gram 17 gm PO DAILY PRN #30 each 04/04/19 07/20/19 Rx oral powder packet docusate sodium [Colace] 100 mg PO BID #60 cap 04/23/19 07/20/19 Rx insulin glargine 100 unit/mL (3 38 unit SC QHS #15 ml 07/02/19 07/20/19 Rx mL) subcutaneous pen pen needle, diabetic 31 gauge x #100 ea 07/09/19 Rx 1/3 lorazepam 1 mg tablet 1 mg PO TID PRN #21 tab 07/16/19 07/20/19 Rx Allergies Allergy/AdvReac Type Severity Reaction Status Date / Time venom-honey bee Allergy Intermediate Unverified 07/20/19 13:56 [bee venom (honey bee)] Sulfa (Sulfonamide Allergy Rash & Unverified 07/20/19 13:56 Antibiotics) Shortness of Breath hydroxyzine HCl AdvReac Intermediate nausea/vomiting, Unverified 07/20/19 13:56 [From Vistaril] palpitations Exam Narrative Exam Narrative: General: Patient appears comfortable, sleeping, AAOX3, NAD Neck: Supple CV: Regular, borderline tachycardic at time of exam, S1S2, No rubs, murmurs, or gallops. Pulmonary: Clear to auscultation bilaterally, no crackles, wheezing, or rhonchi on limited anterior and lateral exam. Minimal tachypnea, improved. Abdomen: + Bowel Sounds, soft, nondistended, obese in contour Vascular: No lower extremity edema Psych: Normal mood and affect. Results Imaging Chest x-ray: report reviewed and image reviewed Additional studies: Exam(s) 07/20/2019 PROCEDURE INFORMATION: Exam: CT Head Without Contrast Exam date and time: 07/20/2019 9:29 AM Clinical history: 49 years old, female; Other: Mental status change TECHNIQUE: Imaging protocol: Computed tomography of the head without contrast. Radiation optimization: All CT scans at this facility use at least one of these dose optimization techniques: automated exposure control; mA and/or kV adjustment per patient size (includes targeted exams where dose is matched to clinical indication); or iterative reconstruction. COMPARISON: No relevant prior studies available. FINDINGS: Brain: Normal. No hemorrhage. Unremarkable white matter. No mass effect. Ventricles: Normal. No ventriculomegaly. Bones/joints: Unremarkable. No acute fracture. Sinuses: Opacities in the ethmoid sinuses and maxillary sinuses may represent sinusitis. Mastoid air cells: Visualized mastoid air cells are well aerated. Soft tissues: Unremarkable. IMPRESSION: Opacities in the ethmoid sinuses and maxillary sinuses may represent sinusitis. No acute intracranial hemorrhage Exam(s) PROCEDURE INFORMATION: Exam: XR Chest, 2 Views Exam date and time: 07/20/2019 9:47 AM Clinical history: 49 years old, female; Other: Hyperglycemia, mental status change TECHNIQUE: Imaging protocol: XR of the chest Views: 2 views. COMPARISON: CR CHEST 2 VIEWS PA,LAT 12/17/2017 11:06 AM FINDINGS: Lungs: Opacity in the right base may represent atelectasis or pneumonia. Pleural space: Unremarkable. No pleural effusion. No pneumothorax. Heart/Mediastinum: Cardiomegaly and tortuous aorta Bones/joints: Unremarkable. Other findings: Patient is leaning to the right IMPRESSION: Opacity in the right base may represent atelectasis or pneumon Labs Result diagrams: 07/20/19 14:50 07/20/19 14:50 Labs: Laboratory Results - last 24 hr 07/20/19 07/20/19 07/20/19 08:30 08:30 08:30 WBC RBC Hgb Hct MCV MCH MCHC RDW Plt Count MPV Immature Gran % Neutrophils % Band Neutrophils % Lymphocytes % Atypical Lymphs % Monocytes % Eosinophils % Basophils % Metamyelocytes % Myelocytes % Promyelocytes % Absolute Neutrophils Absolute Lymphocytes Absolute Monocytes Absolute Eosinophils Absolute Basophils Nucleated RBCs Differential Comment Other Cell Type RBC Morphology Polychromasia Hypochromasia Poikilocytosis Basophilic Stippling Anisocytosis Microcytosis Macrocytosis Spherocytes Target Cells Tear Drop Cells Ovalocytes Stomatocytes [place] Bodies [place] Cells Acanthocytes (Spur) Schistocytes Sample Site pCO2 pO2 O2 Saturation ABG pH ABG HCO3 ABG Total CO2 ABG Base Excess VBG pH 7.04 L VBG pCO2 22 L VBG pO2 75 H VBG HCO3 6 L VBG Total CO2 6 L VBG O2 Saturation 91 H VBG Base Excess Oxygen Liter Flow FiO2 Sodium Cancelled Potassium Cancelled Chloride Cancelled Carbon Dioxide Cancelled Anion Gap Cancelled BUN Cancelled Creatinine Cancelled Estimated GFR/1.73 m2 Cancelled Glucose Cancelled Lactate 4.5 H* Calcium Cancelled Phosphorus Magnesium Cancelled Total Bilirubin Cancelled AST Cancelled ALT Cancelled Alkaline Phosphatase Cancelled Troponin I Cancelled Total Protein Cancelled Albumin Cancelled Urine Color Urine Clarity Urine pH Ur Specific [place] Urine Protein Urine Ketones Urine Blood Urine Nitrite Urine Bilirubin Urine Urobilinogen Ur Leukocyte Esterase Urine RBC Urine WBC Ur Epithelial Cells Urine Crystals Urine Bacteria Urine Casts Urine Mucus Urine Other Ur Culture Indicated? Urine Glucose 07/20/19 07/20/19 07/20/19 08:30 08:41 08:48 WBC Cancelled RBC Cancelled Hgb Cancelled Hct Cancelled MCV Cancelled MCH Cancelled MCHC Cancelled RDW Cancelled Plt Count Cancelled MPV Cancelled Immature Gran % Cancelled Neutrophils % Cancelled Band Neutrophils % Cancelled Lymphocytes % Cancelled Atypical Lymphs % Cancelled Monocytes % Cancelled Eosinophils % Cancelled Basophils % Cancelled Metamyelocytes % Cancelled Myelocytes % Cancelled Promyelocytes % Cancelled Absolute Neutrophils Cancelled Absolute Lymphocytes Cancelled Absolute Monocytes Cancelled Absolute Eosinophils Cancelled Absolute Basophils Cancelled Nucleated RBCs Cancelled Differential Comment Cancelled Other Cell Type Cancelled RBC Morphology Cancelled Polychromasia Cancelled Hypochromasia Cancelled Poikilocytosis Cancelled Basophilic Stippling Cancelled Anisocytosis Cancelled Microcytosis Cancelled Macrocytosis Cancelled Spherocytes Cancelled Target Cells Cancelled Tear Drop Cells Cancelled Ovalocytes Cancelled Stomatocytes Cancelled [place] Bodies Cancelled [place] Cells Cancelled Acanthocytes (Spur) Cancelled Schistocytes Cancelled Sample Site pCO2 pO2 O2 Saturation ABG pH ABG HCO3 ABG Total CO2 ABG Base Excess VBG pH VBG pCO2 VBG pO2 VBG HCO3 VBG Total CO2 VBG O2 Saturation VBG Base Excess Oxygen Liter Flow FiO2 Sodium Cancelled Potassium Cancelled Chloride Cancelled Carbon Dioxide Cancelled Anion Gap Cancelled BUN Cancelled Creatinine Cancelled Estimated GFR/1.73 m2 Cancelled Glucose Cancelled Lactate Calcium Cancelled Phosphorus Magnesium Cancelled Total Bilirubin Cancelled AST Cancelled ALT Cancelled Alkaline Phosphatase Cancelled Troponin I Cancelled Cancelled Total Protein Cancelled Albumin Cancelled Urine Color Urine Clarity Urine pH Ur Specific [place] Urine Protein Urine Ketones Urine Blood Urine Nitrite Urine Bilirubin Urine Urobilinogen Ur Leukocyte Esterase Urine RBC Urine WBC Ur Epithelial Cells Urine Crystals Urine Bacteria Urine Casts Urine Mucus Urine Other Ur Culture Indicated? Urine Glucose 07/20/19 07/20/19 07/20/19 08:48 10:59 10:59 WBC Cancelled RBC Cancelled Hgb Cancelled Hct Cancelled MCV Cancelled MCH Cancelled MCHC Cancelled RDW Cancelled Plt Count Cancelled MPV Cancelled Immature Gran % Cancelled Neutrophils % Cancelled Band Neutrophils % Cancelled Lymphocytes % Cancelled Atypical Lymphs % Cancelled Monocytes % Cancelled Eosinophils % Cancelled Basophils % Cancelled Metamyelocytes % Cancelled Myelocytes % Cancelled Promyelocytes % Cancelled Absolute Neutrophils Cancelled Absolute Lymphocytes Cancelled Absolute Monocytes Cancelled Absolute Eosinophils Cancelled Absolute Basophils Cancelled Nucleated RBCs Cancelled Differential Comment Cancelled Other Cell Type Cancelled RBC Morphology Cancelled Polychromasia Cancelled Hypochromasia Cancelled Poikilocytosis Cancelled Basophilic Stippling Cancelled Anisocytosis Cancelled Microcytosis Cancelled Macrocytosis Cancelled Spherocytes Cancelled Target Cells Cancelled Tear Drop Cells Cancelled Ovalocytes Cancelled Stomatocytes Cancelled [place] Bodies Cancelled [place] Cells Cancelled Acanthocytes (Spur) Cancelled Schistocytes Cancelled Sample Site Cancelled pCO2 Cancelled pO2 Cancelled O2 Saturation Cancelled ABG pH Cancelled ABG HCO3 Cancelled ABG Total CO2 Cancelled ABG Base Excess Cancelled VBG pH VBG pCO2 VBG pO2 VBG HCO3 VBG Total CO2 VBG O2 Saturation VBG Base Excess Oxygen Liter Flow Cancelled FiO2 Cancelled Sodium 131 L Potassium 5.9 H Chloride 88 L Carbon Dioxide < 5.0 L* Anion Gap 38.44556 H BUN Creatinine Estimated GFR/1.73 m2 Glucose Lactate Calcium Phosphorus Magnesium Total Bilirubin AST ALT Alkaline Phosphatase Troponin I Total Protein Albumin Urine Color Urine Clarity Urine pH Ur Specific [place] Urine Protein Urine Ketones Urine Blood Urine Nitrite Urine Bilirubin Urine Urobilinogen Ur Leukocyte Esterase Urine RBC Urine WBC Ur Epithelial Cells Urine Crystals Urine Bacteria Urine Casts Urine Mucus Urine Other Ur Culture Indicated? Urine Glucose 07/20/19 07/20/19 07/20/19 10:59 11:10 12:23 WBC Cancelled RBC Cancelled Hgb Cancelled Hct Cancelled MCV Cancelled MCH Cancelled MCHC Cancelled RDW Cancelled Plt Count Cancelled MPV Cancelled Immature Gran % Cancelled Neutrophils % Cancelled Band Neutrophils % Cancelled Lymphocytes % Cancelled Atypical Lymphs % Cancelled Monocytes % Cancelled Eosinophils % Cancelled Basophils % Cancelled Metamyelocytes % Cancelled Myelocytes % Cancelled Promyelocytes % Cancelled Absolute Neutrophils Cancelled Absolute Lymphocytes Cancelled Absolute Monocytes Cancelled Absolute Eosinophils Cancelled Absolute Basophils Cancelled Nucleated RBCs Cancelled Differential Comment Cancelled Other Cell Type Cancelled RBC Morphology Cancelled Polychromasia Cancelled Hypochromasia Cancelled Poikilocytosis Cancelled Basophilic Stippling Cancelled Anisocytosis Cancelled Microcytosis Cancelled Macrocytosis Cancelled Spherocytes Cancelled Target Cells Cancelled Tear Drop Cells Cancelled Ovalocytes Cancelled Stomatocytes Cancelled [place] Bodies Cancelled [place] Cells Cancelled Acanthocytes (Spur) Cancelled Schistocytes Cancelled Sample Site pCO2 pO2 O2 Saturation ABG pH ABG HCO3 ABG Total CO2 ABG Base Excess VBG pH VBG pCO2 VBG pO2 VBG HCO3 VBG Total CO2 VBG O2 Saturation VBG Base Excess Oxygen Liter Flow FiO2 Sodium Potassium Chloride Carbon Dioxide Anion Gap BUN Creatinine Estimated GFR/1.73 m2 Glucose 1041 H* Lactate Calcium Phosphorus Magnesium Total Bilirubin AST ALT Alkaline Phosphatase Troponin I Total Protein Albumin Urine Color Yellow Urine Clarity Clear Urine pH 5.5 Ur Specific [place] 1.015 Urine Protein 30 H Urine Ketones >=160 H Urine Blood Trace-intact H Urine Nitrite Negative Urine Bilirubin Small H Urine Urobilinogen 0.2 Ur Leukocyte Esterase Negative Urine RBC 0-2 Urine WBC Negative Ur Epithelial Cells Rare Urine Crystals Few amorphous Urine Bacteria Negative Urine Casts Negative Urine Mucus Negative Urine Other Few transitional Ur Culture Indicated? No Urine Glucose 500 H 07/20/19 07/20/19 07/20/19 13:59 14:01 14:50 WBC RBC Hgb Hct MCV MCH MCHC RDW Plt Count MPV Immature Gran % Neutrophils % Band Neutrophils % Lymphocytes % Atypical Lymphs % Monocytes % Eosinophils % Basophils % Metamyelocytes % Myelocytes % Promyelocytes % Absolute Neutrophils Absolute Lymphocytes Absolute Monocytes Absolute Eosinophils Absolute Basophils Nucleated RBCs Differential Comment Other Cell Type RBC Morphology Polychromasia Hypochromasia Poikilocytosis Basophilic Stippling Anisocytosis Microcytosis Macrocytosis Spherocytes Target Cells Tear Drop Cells Ovalocytes Stomatocytes [place] Bodies Adal Cells Acanthocytes (Spur) Schistocytes Sample Site pCO2 pO2 O2 Saturation ABG pH ABG HCO3 ABG Total CO2 ABG Base Excess VBG pH VBG pCO2 VBG pO2 VBG HCO3 VBG Total CO2 VBG O2 Saturation VBG Base Excess Oxygen Liter Flow FiO2 Sodium Cancelled 141 Potassium Cancelled 3.3 L D Chloride Cancelled 103 Carbon Dioxide Cancelled 7.7 L Anion Gap Cancelled 30.3 H BUN Cancelled 28 H Creatinine Cancelled 2.01 H Estimated GFR/1.73 m2 Cancelled 26.33 Glucose Cancelled 488 H D Lactate Calcium Cancelled 8.3 L Phosphorus Magnesium 2.2 Total Bilirubin Cancelled 0.5 AST Cancelled 9 L ALT Cancelled 20 Alkaline Phosphatase Cancelled 108 Troponin I Cancelled < 0.05 Total Protein Cancelled 6.9 Albumin Cancelled 3.1 L Urine Color Urine Clarity Urine pH Ur Specific [place] Urine Protein Urine Ketones Urine Blood Urine Nitrite Urine Bilirubin Urine Urobilinogen Ur Leukocyte Esterase Urine RBC Urine WBC Ur Epithelial Cells Urine Crystals Urine Bacteria Urine Casts Urine Mucus Urine Other Ur Culture Indicated? Urine Glucose 07/20/19 07/20/19 07/20/19 14:50 14:50 14:50 WBC 9.85 RBC 4.47 Hgb 12.6 Hct 38.1 MCV 85.2 MCH 28.2 MCHC 33.1 RDW 12.8 Plt Count 271 MPV 9.7 Immature Gran % See Differential Neutrophils % 83.0 Band Neutrophils % 2.0 Lymphocytes % 10.0 Atypical Lymphs % Monocytes % 5.0 Eosinophils % 0.0 Basophils % 0.0 Metamyelocytes % Myelocytes % Promyelocytes % Absolute Neutrophils 8.37 H Absolute Lymphocytes 0.99 L Absolute Monocytes 0.49 Absolute Eosinophils 0.00 Absolute Basophils 0.00 Nucleated RBCs Differential Comment Manual differential Other Cell Type RBC Morphology Normal Polychromasia Hypochromasia Poikilocytosis Basophilic Stippling Anisocytosis Microcytosis Macrocytosis Spherocytes Target Cells Tear Drop Cells Ovalocytes Stomatocytes [place] Bodies Adal Cells Acanthocytes (Spur) Schistocytes Sample Site pCO2 pO2 O2 Saturation ABG pH ABG HCO3 ABG Total CO2 ABG Base Excess VBG pH VBG pCO2 VBG pO2 VBG HCO3 VBG Total CO2 VBG O2 Saturation VBG Base Excess Oxygen Liter Flow FiO2 Sodium Potassium Chloride Carbon Dioxide Anion Gap BUN Creatinine Estimated GFR/1.73 m2 Glucose Lactate 1.4 Calcium Phosphorus 3.3 Magnesium Total Bilirubin AST ALT Alkaline Phosphatase Troponin I Total Protein Albumin Urine Color Urine Clarity Urine pH Ur Specific [place] Urine Protein Urine Ketones Urine Blood Urine Nitrite Urine Bilirubin Urine Urobilinogen Ur Leukocyte Esterase Urine RBC Urine WBC Ur Epithelial Cells Urine Crystals Urine Bacteria Urine Casts Urine Mucus Urine Other Ur Culture Indicated? Urine Glucose 07/20/19 15:13 WBC RBC Hgb Hct MCV MCH MCHC RDW Plt Count MPV Immature Gran % Neutrophils % Band Neutrophils % Lymphocytes % Atypical Lymphs % Monocytes % Eosinophils % Basophils % Metamyelocytes % Myelocytes % Promyelocytes % Absolute Neutrophils Absolute Lymphocytes Absolute Monocytes Absolute Eosinophils Absolute Basophils Nucleated RBCs Differential Comment Other Cell Type RBC Morphology Polychromasia Hypochromasia Poikilocytosis Basophilic Stippling Anisocytosis Microcytosis Macrocytosis Spherocytes Target Cells Tear Drop Cells Ovalocytes Stomatocytes [place] Bodies Adal Cells Acanthocytes (Spur) Schistocytes Sample Site Arterial line pCO2 17 L* pO2 81 L O2 Saturation 96 ABG pH 7.22 L ABG HCO3 7 L ABG Total CO2 7 L ABG Base Excess VBG pH VBG pCO2 VBG pO2 VBG HCO3 VBG Total CO2 VBG O2 Saturation VBG Base Excess Oxygen Liter Flow FiO2 Sodium Potassium Chloride Carbon Dioxide Anion Gap BUN Creatinine Estimated GFR/1.73 m2 Glucose Lactate Calcium Phosphorus Magnesium Total Bilirubin AST ALT Alkaline Phosphatase Troponin I Total Protein Albumin Urine Color Urine Clarity Urine pH Ur Specific [place] Urine Protein Urine Ketones Urine Blood Urine Nitrite Urine Bilirubin Urine Urobilinogen Ur Leukocyte Esterase Urine RBC Urine WBC Ur Epithelial Cells Urine Crystals Urine Bacteria Urine Casts Urine Mucus Urine Other Ur Culture Indicated? Urine Glucose Last Vital Signs Temp 37.0 C 07/20/19 15:57 Pulse 96 H 07/20/19 14:46 Resp 20 07/20/19 15:57 BP 114/53 L 07/20/19 15:57 Pulse Ox 96 07/20/19 15:57
[2019-07-20] MEDS: POTASSIUM CHLORIDE/0.45% NACL 1,000 ML 200 MEQ IV (17:15)
[2019-07-20] MEDS: POTASSIUM CHLORIDE 20 MEQ/100 ML BAG 50 MEQ IVPB (18:11)
[2019-07-20] MEDS: levoFLOXacin 750 MG/150 ML BAG 100 MG IVPB (18:54)
[2019-07-20 19:21] LABS: Anion Gap 16.3 mmol/L (3-11); BUN 23 mg/dL (7-18); CO2 17.7 mmol/L (21.0-32.0); CREATININE 1.63 mg/dL (0.55-1.02); Calcium 8.1 mg/dL (8.5-10.1); Chloride 111 mmol/L (98-107); Estimated GFR 33.53 (mL/min/1.73m2); Glucose 208 mg/dL (70-100); Potassium 3.6 mmol/L (3.5-5.1); Sodium 145 mmol/L (136-145)
[2019-07-20 19:32] LABS: Troponin I < 0.05 ng/mL (0.00-0.06)
[2019-07-20] MEDS: metroNIDAZOLE 500 MG/100 ML BAG 100 MG IVPB (21:09)
[2019-07-20 22:40] LABS: Anion Gap 9.6 mmol/L (3-11); BUN 19 mg/dL (7-18); CO2 22.4 mmol/L (21.0-32.0); CREATININE 1.58 mg/dL (0.55-1.02); Calcium 7.7 mg/dL (8.5-10.1); Chloride 112 mmol/L (98-107); Estimated GFR 34.76 (mL/min/1.73m2); Glucose 209 mg/dL (70-100); Potassium 3.6 mmol/L (3.5-5.1); Sodium 144 mmol/L (136-145)
[2019-07-21] VITALS (48 sets, daily range): BP systolic 102–152; BP diastolic 59–90; PULSE 61–94; RESP 12–30; TEMP 36.8–37.2; O2SAT 89–100
[2019-07-21] MEDS: LORazepam 2 MG/ML VIAL 1 MG IVP ×2 (00:42→04:18)
[2019-07-21 01:11] LABS: BUN 18 mg/dL (7-18); CREATININE 1.49 mg/dL (0.55-1.02); Calcium 7.8 mg/dL (8.5-10.1); Chloride 112 mmol/L (98-107); Estimated GFR 37.19 (mL/min/1.73m2); Glucose 131 mg/dL (70-100); Potassium 3.4 mmol/L (3.5-5.1); Sodium 144 mmol/L (136-145)
[2019-07-21] MEDS: POTASSIUM CHLORIDE/D5-0.45NACL 1,000 ML 200 MEQ IV ×5 (01:18→20:47)
[2019-07-21] MEDS: POTASSIUM CHLORIDE 20 MEQ/100 ML BAG 50 MEQ IVPB (02:13)
[2019-07-21] MEDS: Dextrose 50%-Water 25 GM/50 ML SYR IVP (03:57)
[2019-07-21] MEDS: metroNIDAZOLE 500 MG/100 ML BAG 100 MG IVPB ×3 (04:18→20:28)
[2019-07-21] MEDS: INSULIN REGULAR IN 0.9 % NACL 100 UNIT/100 ML BAG 8.5 UNIT IV (04:21)
[2019-07-21] MEDS: Heparin 5,000 UNITS/ML VIAL 5000 UNITS SC ×2 (05:39→13:56)
[2019-07-21] MEDS: Normal Saline Flush 10 ML SYR IVP (06:15)
[2019-07-21 06:51] LABS: Lactate 1.7 mmol/L (0.6-1.4)
[2019-07-21 06:55] LABS: Abs Immature Grans 0.02 k/cumm (0.0-0.09); Absolute Basophil Count 0.01 k/cumm (0.0-0.2); Absolute Eosinophil Count 0.03 k/cumm (0.0-0.7); Absolute Lymphocyte Count 1.18 k/cumm (1.2-3.4); Absolute Monocyte Count 0.53 k/cumm (0.11-0.7); Absolute Neutrophil Count 7.83 k/cumm (1.2-6.7); Basophils % 0.1; Eosinophils % 0.3; HCT 34.8 % (36.0-46.0); HGB 11.8 g/dL (12.0-15.5); Immature Grans % 0.2; Lymphocytes % 12.3; Mean Corp. HGB Concentration 33.9 g/dL (32.0-36.0); Mean Corpuscular Hemoglobin 28.2 pg (27.0-33.0); Mean Corpuscular Volume 83.1 fL (80-95); Mean Platelet Volume 9.5 fL (8.0-11.0); Monocytes % 5.5; Neutrophils % 81.6; Platelet Count 220 x1000/uL (130-400); RBC 4.19 m/cumm (4.00-5.20); RBC Distribution Width 12.8 % (11.7-14.6)
[2019-07-21 07:12] LABS: ALT 18 U/L (14-59); AST 14 U/L (15-37); Albumin 2.5 g/dL (3.4-5.0); Alkaline Phosphatase 78 U/L (46-116); Anion Gap 11.3 mmol/L (3-11); BUN 15 mg/dL (7-18); Bilirubin, Total 0.3 mg/dL (0.2-1.0); CO2 20.7 mmol/L (21.0-32.0); CREATININE 1.33 mg/dL (0.55-1.02); Calcium 7.7 mg/dL (8.5-10.1); Chloride 111 mmol/L (98-107); Glucose 197 mg/dL (70-100); Potassium 3.5 mmol/L (3.5-5.1); Sodium 143 mmol/L (136-145); Total Protein 5.6 g/dL (6.4-8.2)
[2019-07-21 07:16] LABS: Troponin I < 0.05 ng/mL (0.00-0.06)
[2019-07-21 12:08] LABS: Anion Gap 8.2 mmol/L (3-11); BUN 11 mg/dL (7-18); CO2 20.8 mmol/L (21.0-32.0); CREATININE 1.06 mg/dL (0.55-1.02); Calcium 8.2 mg/dL (8.5-10.1); Chloride 112 mmol/L (98-107); Glucose 82 mg/dL (70-100); Potassium 3.5 mmol/L (3.5-5.1); Sodium 141 mmol/L (136-145)
[2019-07-21 13:33] LABS: ETHANOL BLOOD < 3.0 mg/dL (<3)
[2019-07-21 16:36] LABS: *AMPHETAMINES SCREEN URINE Negative (Negative); *BARBITURATES SCREEN URINE Negative (Negative); *BENZODIAZEPINES SCREEN URINE Negative (Negative); Cannabinoids THC Negative (Negative); Cocaine Screen,Urine Negative (Negative); METHADONE URINE SCREEN POSITIVE (Negative); OPIATES URINE SCREEN POSITIVE (Negative)
[2019-07-21 16:39] LABS: Tricyclic Antidepressants Negative (Negative)
--- NOTE | 2019-07-21 17:35 | PDOC.CMIN ---
- If Service Date Differs Date of service: 07/21/19 Time of Service: 17:36 Care Management Initial Assess REASON FOR HOSPITALIZATION:: DKA PAST MEDICAL HISTORY/PAST SURGICAL HISTORY:: Medical History (Updated 07/20/19 @ 17:45 by eKvin Fuentes MD). Alcohol abuse (Inactive). Alcohol dependence in remission (Inactive). Anxiety (Inactive). Cellulitis of left hand (Inactive 02/01/15). a. secondary to cat bite vs. IVDU. b. has 13 cats at home. c. denies ongoing IVDU at this time. Closed fracture of distal end of right fibula (Inactive 10/04/16). Constipation (Inactive). COPD (chronic obstructive pulmonary disease) (Chronic). Current smoker (Inactive 02/01/15). x 29 years. Depressive disorder (Inactive). Diabetes mellitus, type II (Inactive). a. chronic noncompliance. b. multiple episodes of admission for [facility]. c. ? diabetic retinopathy. Diabetic nephropathy (Suspected 02/01/15). 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 Hyperlipemia (Acute). Hyperlipidemia (Inactive). statin started . Non compliance with medical treatment (Inactive 02/01/15). Panic disorder (Inactive). PTSD (post-traumatic stress disorder) (Acute). Schizophrenia (Chronic). Umbilical hernia, incarcerated (Inactive). Ventral hernia without obstruction or gangrene (Inactive) PREVIOUS FUNCTIONAL STATUS/SOCIAL/FAMILY SUPPORTS:: Josefina lives in an apartment in [facility] with her boyfriend Gary. When asked if she had children, she answered that she used to. She also stated that she did not want to talk about that right now. She stated that she is not currently employed. When asked about services received, Josefina was not very forthcoming. When asked about whether or not she sees a therapist she said that she does not but should. CURRENT FUNCTIONAL STATUS:: Josefina was lying in bed when CM came to see her. She appeared drowsy but agreed to have a conversation. She answered some direct questions, but failed to respond to others. CM ended the conversation when she appeared to go to sleep. ADVANCE DIRECTIVES:: none on file Has patient been provided with information about the portal?: No Did the patient sign up for the portal?: No CODE STATUS:: Full Code INSURANCE COVERAGE / FINANCIAL ISSUES:: Medicaid CURRENT HOME/COMMUNITY SERVICES/EQUIPMENT:: Josefina attends [facility] for methadoner treatment PRIMARY CARE PHYSICIAN:: Marni Doan POTENTIAL DISCHARGE NEEDS:: Follow up with PCP and discharge plan of care. Possible referral for counseling. PATIENT/FAMILY EDUCATION NEEDS:: Discharge plan, limitations, follow up plan, Ask Me Three. TRANSPORTATION:: via private vehicle with family or friends PLAN:: Josefina will be discharged home with no new services. She will transport via private vehicle and follow up with her PCP. CM will continue to support patient, famiily and discharge planning nbeeds.
[2019-07-21] MEDS: INSULIN REGULAR IN 0.9 % NACL 100 UNIT/100 ML BAG IV (17:50)
--- NOTE | 2019-07-21 18:30 | W.PM.PROGNOT ---
Date of Service Date of service: 07/21/19 Time of Service: 18:30 Assessment and Plan Assessment and plan (1) DKA (diabetic ketoacidoses): Status: Acute Assessment and plan: Evidence of significant hyperglycemia, urinary ketones, lactic acidosis, and high anion gap in patient with type 2 diabetes. This may be in the setting of infection, both with pneumonia and potential sinusitis, dehydration due to nausea and vomiting, and potential component of insulin noncompliance. -Has been aggressively hydrated, and anion gap has closed. However, due to somnolence she has not eaten at this time. Plan will be to continue Insulin gtt & D5 1/2NS until able to transition to basal insulin with meals. -Continue treatment of underlying infections. Ruled out for ACS serial cardiac biomarkers. -Due to access issues, central line and arterial line were obtained by surgery. -Monitor mental status carefully as well - Initial CT head negative. While patient has slept for significant periods of the day, her mental status is completely normal when aroused, and was taken out of bed by nursing today. Showing no signs of focal deficits. (2) Pneumonia: Status: Acute Assessment and plan: Evidence of a right basilar opacity. This may represent CAP and the driving force for patient's presentation of significant hyperglycemia with evidence of DKA. However, as patient had significant episodes of vomiting need to also consider the potential for aspiration as well. Also with evidence of potential sinusitis by CT of the head. -Was initiated on Levaquin which should cover the patient's pulmonary process as well as potential for sinus infection. -Ms. Higginbotham has a history of IVDA and opiate abuse, maintained on chronic methadone. Need to monitor QT carefully while on Fluoroquinolone therapy. Maintain patient on cardiac monitoring. -Will also continue metronidazole for anaerobic coverage for potential aspiration as well. Currently day #2 of antibiotic therapy. (3) OMID (acute kidney injury): Status: Acute Assessment and plan: In setting of profound dehydration and DKA. Aggressive fluid resuscitation as above, and monitor renal function carefully. Renally dose medications when appropriate, and avoid nephrotoxins. Currently improving. (4) DVT prophylaxis: Status: Acute Assessment and plan: SC heparin. Subjective Subjective Interval history since last seen: 49-year-old woman with a past medical history significant for diabetes and medical noncompliance, being admitted from [facility] emergency department on 10/27 with a diagnosis of DKA and pneumonia. Ms. Higginbotham has a Past Medical History significant for IDDM with prior hospitalizations with [facility], precipitated by infection and insulin noncompliance, GERD, chronic anemia, COPD with ongoing tobacco use, schizophrenia, anxiety, and PTSD. The patient also has a prior history of IVDA and heroin/opiate abuse, currently on methadone and reportedly in remission over the past year. She has a prior diagnosis of presumed endocarditis, having refused a SAMANTHA, as well as previous infections with cellulitis and pneumonia. She also has a history of EtOH abuse, again reportedly in remission. She was diagnosed with a ventral hernia in the past as well. Ms. Higginbotham has been known to leave prior hospitalizations AMA, and has a long history of medication noncompliance. The patient initially presented to the ED on the first of this month with acute onset of nausea and vomiting, and found to be hyperglycemic. Her lab work was fairly unremarkable, and she did not have any evidence of an anion gap. She also at that time admitted being noncompliant with her insulin as prescribed. She was treated and discharged in improved condition. According to her boyfriend, Ms. Higginbotham ran out of insulin last week, experiencing some significant hyperglycemia prior to being prescribed her medication and initiating back on her insulin, which she reported being compliant with over the course of the past week. Although her blood sugars have been running high, they had not been significantly elevated and certainly not in or over the 400 range. However starting on the day prior to admission she started to feel unwell, and began to experience significantly higher blood sugars on monitor despite reported compliance with her insulin. Overnight she also became nauseous and spend a significant time vomiting. She also had an altered mental status, reportedly somnolent and not quite herself. She was brought into the ED for further evaluation. Work-up in the ED was initially difficult as IV access was an issue, with hemolyzed blood samples. However, lab work subsequently showed evidence of significant hyperglycemia with a blood sugar of 1041, undetectably low bicarb with an anion gap of 38, lactate of 4.5, and a VBG with a pH of 7. Imaging with CXR showed a right basilar opacity that was deemed atelectasis vs. Pneumonia, and CT of the head showed opacities in both the ethmoid and maxillary sinuses consistent with potential sinusitis. At that time the patient was referred for admission for further evaluation and treatment. By this morning Ms. Higginbotham' labwork has improved dramatically. Her kidney function is improving, and gap has closed. Lactate has improved significantly as well, and is now only minimally elevated. Her troponin remained negative. UDS showed evidence of Methadone as well as Opiates, and Alcohol level was undetectable, but checked on the afternoon following admission. She remains somnolent, but easily arousable and appropriate. No overnight events reported. Remains afebrile. Exam Narrative Exam Narrative: General: Patient appears comfortable, sleeping but arousable, appears oriented X3 and appropriate when answering questions, NAD Neck: Supple CV: Regular, nontachycardic at time of exam, S1S2, No rubs, murmurs, or gallops. Pulmonary: Clear to auscultation bilaterally, no crackles, wheezing, or rhonchi on limited anterior and lateral exam. Minimal tachypnea, improved. Abdomen: + Bowel Sounds, soft, nondistended, obese in contour Vascular: No lower extremity edema Psych: Normal mood and affect. Objective Objective Clinical Data: Abnormal lab results 07/20/19 07/20/19 07/21/19 Range/Units 19:00 22:22 01:00 Hgb (12.0-15.5) g/dL Hct (36.0-46.0) % Absolute Neutrophils (1.2-6.7) k/cumm Absolute Lymphocytes (1.2-3.4) k/cumm Potassium 3.4 L (3.5-5.1) mmol/L Chloride 111 H 112 H 112 H (98-107) mmol/L Carbon Dioxide 17.7 L (21.0-32.0) mmol/L Anion Gap 16.3 H (3-11) mmol/L BUN 23 H 19 H (7-18) mg/dL Creatinine 1.63 H 1.58 H 1.49 H (0.55-1.02) mg/dL Glucose 208 H D 209 H 131 H D (70-100) mg/dL Lactate (0.6-1.4) mmol/L Calcium 8.1 L 7.7 L 7.8 L (8.5-10.1) mg/dL AST (15-37) U/L Total Protein (6.4-8.2) g/dL Albumin (3.4-5.0) g/dL Urine Opiates Screen (Negative) Urine Methadone Screen (Negative) 07/21/19 07/21/19 07/21/19 Range/Units 06:20 06:20 06:20 Hgb 11.8 L (12.0-15.5) g/dL Hct 34.8 L (36.0-46.0) % Absolute Neutrophils 7.83 H (1.2-6.7) k/cumm Absolute Lymphocytes 1.18 L (1.2-3.4) k/cumm Potassium (3.5-5.1) mmol/L Chloride 111 H (98-107) mmol/L Carbon Dioxide 20.7 L (21.0-32.0) mmol/L Anion Gap 11.3 H (3-11) mmol/L BUN (7-18) mg/dL Creatinine 1.33 H (0.55-1.02) mg/dL Glucose 197 H (70-100) mg/dL Lactate 1.7 H (0.6-1.4) mmol/L Calcium 7.7 L (8.5-10.1) mg/dL AST 14 L (15-37) U/L Total Protein 5.6 L (6.4-8.2) g/dL Albumin 2.5 L (3.4-5.0) g/dL Urine Opiates Screen (Negative) Urine Methadone Screen (Negative) 07/21/19 07/21/19 Range/Units 11:50 14:10 Hgb (12.0-15.5) g/dL Hct (36.0-46.0) % Absolute Neutrophils (1.2-6.7) k/cumm Absolute Lymphocytes (1.2-3.4) k/cumm Potassium (3.5-5.1) mmol/L Chloride 112 H (98-107) mmol/L Carbon Dioxide 20.8 L (21.0-32.0) mmol/L Anion Gap (3-11) mmol/L BUN (7-18) mg/dL Creatinine 1.06 H (0.55-1.02) mg/dL Glucose (70-100) mg/dL Lactate (0.6-1.4) mmol/L Calcium 8.2 L (8.5-10.1) mg/dL AST (15-37) U/L Total Protein (6.4-8.2) g/dL Albumin (3.4-5.0) g/dL Urine Opiates Screen Positive A (Negative) Urine Methadone Screen Positive A (Negative) Vital Signs Temperature 37.1 C 07/21/19 16:45 Temperature Source Temporal Artery Scan 07/21/19 16:45 Pulse 70 07/21/19 16:01 Pulse 70 07/21/19 16:01 Respiratory Rate 21 07/21/19 16:45 Respiratory Effort 07/21/19 16:45 Respiratory Depth Shallow 07/21/19 16:45 Respiratory Pattern Normal 07/21/19 16:45 Blood Pressure 141/83 H 07/21/19 16:45 Blood Pressure Mean 102 07/21/19 16:45 Blood Pressure Position Supine 07/21/19 16:45 Pulse Oximetry 96 07/21/19 16:45 Oxygen Delivery Method Room Air 07/21/19 16:45 Oxygen Flow Rate 0 07/21/19 16:45 Pain Level 0 07/21/19 07:36 Intake & Output 07/20/19 07/21/19 07/21/19 23:59 11:59 23:59 Intake Total 4888.917 / 5898.917 1897.399 / 3073.216 1175.817 / 3073.216 Output Total 1999 350 / 650 300 / 650 Balance 2888.917 / 3898.917 1547.399 / 2423.216 875.817 / 2423.216 Weight 71 kg 74.6 kg Intake: IV 4888.917 / 5898.917 1867.399 / 2893.216 1025.817 / 2893.216 Oral 30 / 180 150 / 180 Output: Urine 1999 350 / 650 300 / 650 Other: Urine Color Yellow Light Elizabet Yellow [place] Urine Appearance Cloudy Cloudy Cloudy Purulent Comment gandara to gravity Gandara to gravity. Cloudy yellow/pink urine in collection bag Gandara to gravity. Cloudy yellow/pink urine in collection bag Emesis Description Retching Voiding Methods Indwelling Catheter Laboratory Results WBC 9.60 k/cumm (4.4-10.8) 07/21/19 06:20 RBC 4.19 m/cumm (4.00-5.20) 07/21/19 06:20 Hgb 11.8 g/dL (12.0-15.5) L 07/21/19 06:20 Hct 34.8 % (36.0-46.0) L 07/21/19 06:20 MCV 83.1 fL (80-95) 07/21/19 06:20 MCH 28.2 pg (27.0-33.0) 07/21/19 06:20 MCHC 33.9 g/dL (32.0-36.0) 07/21/19 06:20 RDW 12.8 % (11.7-14.6) 07/21/19 06:20 Plt Count 220 x1000/uL (130-400) 07/21/19 06:20 MPV 9.5 fL (8.0-11.0) 07/21/19 06:20 Immature Gran % 0.2 07/21/19 06:20 Neutrophils % 81.6 07/21/19 06:20 Band Neutrophils % 2.0 % 07/20/19 14:50 Lymphocytes % 12.3 07/21/19 06:20 Atypical Lymphs % Cancelled 07/20/19 12:23 Monocytes % 5.5 07/21/19 06:20 Eosinophils % 0.3 07/21/19 06:20 Basophils % 0.1 07/21/19 06:20 Metamyelocytes % Cancelled 07/20/19 12:23 Myelocytes % Cancelled 07/20/19 12:23 Promyelocytes % Cancelled 07/20/19 12:23 Absolute Neutrophils 7.83 k/cumm (1.2-6.7) H 07/21/19 06:20 Absolute Lymphocytes 1.18 k/cumm (1.2-3.4) L 07/21/19 06:20 Absolute Monocytes 0.53 k/cumm (0.11-0.7) 07/21/19 06:20 Absolute Eosinophils 0.03 k/cumm (0.0-0.7) 07/21/19 06:20 Absolute Basophils 0.01 k/cumm (0.0-0.2) 07/21/19 06:20 Nucleated RBCs Cancelled 07/20/19 12:23 Differential Comment Manual differential 07/20/19 14:50 Other Cell Type Cancelled 07/20/19 12:23 RBC Morphology Normal 07/20/19 14:50 Polychromasia Cancelled 07/20/19 12:23 Hypochromasia Cancelled 07/20/19 12:23 Poikilocytosis Cancelled 07/20/19 12:23 Basophilic Stippling Cancelled 07/20/19 12:23 Anisocytosis Cancelled 07/20/19 12:23 Microcytosis Cancelled 07/20/19 12:23 Macrocytosis Cancelled 07/20/19 12:23 Spherocytes Cancelled 07/20/19 12:23 Target Cells Cancelled 07/20/19 12:23 Tear Drop Cells Cancelled 07/20/19 12:23 Ovalocytes Cancelled 07/20/19 12:23 Stomatocytes Cancelled 07/20/19 12:23 [place] Bodies Cancelled 07/20/19 12:23 [place] Cells Cancelled 07/20/19 12:23 Acanthocytes (Spur) Cancelled 07/20/19 12:23 Schistocytes Cancelled 07/20/19 12:23 Sample Site Arterial line 07/20/19 15:13 pCO2 17 mmHg (34-47) L* 07/20/19 15:13 pO2 81 mmHg (83-108) L 07/20/19 15:13 O2 Saturation 96 % (94-98) 07/20/19 15:13 ABG pH 7.22 (7.35-7.45) L 07/20/19 15:13 ABG HCO3 7 mmol/L (22-28) L 07/20/19 15:13 ABG Total CO2 7 mmol/L (22-29) L 07/20/19 15:13 ABG Base Excess mmol/L (-3-3) 07/20/19 15:13 VBG pH 7.04 (7.32-7.43) L 07/20/19 08:30 VBG pCO2 22 mm/Hg (34-47) L 07/20/19 08:30 VBG pO2 75 mm/Hg (28-44) H 07/20/19 08:30 VBG HCO3 6 mmol/L (22-28) L 07/20/19 08:30 VBG Total CO2 6 mmol/L (22-29) L 07/20/19 08:30 VBG O2 Saturation 91 % (70-80) H 07/20/19 08:30 VBG Base Excess mmol/L (-3-3) 07/20/19 08:30 Oxygen Liter Flow Cancelled 07/20/19 10:59 FiO2 Cancelled 07/20/19 10:59 Sodium 141 mmol/L (136-145) 07/21/19 11:50 Potassium 3.5 mmol/L (3.5-5.1) 07/21/19 11:50 Chloride 112 mmol/L (98-107) H 07/21/19 11:50 Carbon Dioxide 20.8 mmol/L (21.0-32.0) L 07/21/19 11:50 Anion Gap 8.2 mmol/L (3-11) 07/21/19 11:50 BUN 11 mg/dL (7-18) 07/21/19 11:50 Creatinine 1.06 mg/dL (0.55-1.02) H 07/21/19 11:50 Estimated GFR/1.73 m2 55.10 (mL/min/1.73m2) 07/21/19 11:50 Glucose 82 mg/dL (70-100) D 07/21/19 11:50 Lactate 1.7 mmol/L (0.6-1.4) H 07/21/19 06:20 Calcium 8.2 mg/dL (8.5-10.1) L 07/21/19 11:50 Phosphorus 3.3 mg/dL (2.6-4.7) 07/20/19 14:50 Magnesium 2.2 mg/dL (1.8-2.4) 07/20/19 14:50 Total Bilirubin 0.3 mg/dL (0.2-1.0) 07/21/19 06:20 AST 14 U/L (15-37) L 07/21/19 06:20 ALT 18 U/L (14-59) 07/21/19 06:20 Alkaline Phosphatase 78 U/L (46-116) 07/21/19 06:20 Troponin I < 0.05 ng/mL (0.00-0.06) 07/21/19 06:20 Total Protein 5.6 g/dL (6.4-8.2) L 07/21/19 06:20 Albumin 2.5 g/dL (3.4-5.0) L 07/21/19 06:20 Urine Color Yellow (Yellow) 07/20/19 11:10 Urine Clarity Clear (Clear) 07/20/19 11:10 Urine pH 5.5 (5-8) 07/20/19 11:10 Ur Specific [place] 1.015 (1.005-1.025) 07/20/19 11:10 Urine Protein 30 mg/dL (Negative) H 07/20/19 11:10 Urine Ketones >=160 mg/dL (Negative) H 07/20/19 11:10 Urine Blood Trace-intact (Negative) H 07/20/19 11:10 Urine Nitrite Negative (Negative) 07/20/19 11:10 Urine Bilirubin Small (Negative) H 07/20/19 11:10 Urine Urobilinogen 0.2 EU/dL (Up TO 0.2) 07/20/19 11:10 Ur Leukocyte Esterase Negative (Negative) 07/20/19 11:10 Urine RBC 0-2 (0-2) 07/20/19 11:10 Urine WBC Negative HPF (0-5) 07/20/19 11:10 Ur Epithelial Cells Rare HPF (Negative) 07/20/19 11:10 Urine Crystals Few amorphous HPF (Negative) 07/20/19 11:10 Urine Bacteria Negative HPF (Negative) 07/20/19 11:10 Urine Casts Negative LPF (Negative) 07/20/19 11:10 Urine Mucus Negative (Negative) 07/20/19 11:10 Urine Other Few transitional (Negative) 07/20/19 11:10 Ur Culture Indicated? No 07/20/19 11:10 Urine Glucose 500 mg/dL (Negative) H 07/20/19 11:10 Urine Opiates Screen Positive (Negative) A 07/21/19 14:10 Urine Methadone Screen Positive (Negative) A 07/21/19 14:10 Ur Barbiturates Screen Negative (Negative) 07/21/19 14:10 Ur Tricyclics Screen Negative (Negative) 07/21/19 14:10 Ur Amphetamines Screen Negative (Negative) 07/21/19 14:10 U Benzodiazepines Scrn Negative (Negative) 07/21/19 14:10 Urine Cocaine Screen Negative (Negative) 07/21/19 14:10 Ur THC Screen Negative (Negative) 07/21/19 14:10 Ethyl Alcohol < 3.0 mg/dL (<3) 07/21/19 13:00
[2019-07-21] MEDS: levoFLOXacin 750 MG/150 ML BAG 100 MG IVPB (18:35)
[2019-07-21] MEDS: ACETAMINOPHEN 1,000 MG/100 ML BTL 400 MG IVPB (19:57)
[2019-07-21] MEDS: LORazepam 1 MG TAB PO (22:29)
[2019-07-22] VITALS (35 sets, daily range): BP systolic 117–171; BP diastolic 60–97; PULSE 64–86; RESP 1–33; TEMP 36.6–37.2; O2SAT 93–100
[2019-07-22] MEDS: LORazepam 1 MG TAB PO ×2 (01:26→21:06)
[2019-07-22] MEDS: POTASSIUM CHLORIDE/0.45% NACL 1,000 ML 200 MEQ IV (02:26)
[2019-07-22] MEDS: Benzonatate 200 MG CAP PO ×3 (02:37→21:06)
[2019-07-22] MEDS: guaiFENesin 600 MG TABCR PO ×3 (02:37→21:06)
[2019-07-22] MEDS: Insulin Glargine 300 UNITS/3 ML PEN 20 UNITS SC (04:02)
[2019-07-22] MEDS: metroNIDAZOLE 500 MG/100 ML BAG 100 MG IVPB ×3 (04:59→21:07)
[2019-07-22] MEDS: Normal Saline 1,000 ML 150 ML IV ×2 (05:45→12:54)
[2019-07-22] MEDS: Heparin 5,000 UNITS/ML VIAL 5000 UNITS SC ×3 (06:39→21:06)
[2019-07-22 07:21] LABS: ALT 18 U/L (14-59); AST 20 U/L (15-37); Abs Immature Grans 0.01 k/cumm (0.0-0.09); Absolute Basophil Count 0.01 k/cumm (0.0-0.2); Absolute Eosinophil Count 0.04 k/cumm (0.0-0.7); Absolute Lymphocyte Count 1.25 k/cumm (1.2-3.4); Absolute Monocyte Count 0.41 k/cumm (0.11-0.7); Albumin 2.4 g/dL (3.4-5.0); Alkaline Phosphatase 76 U/L (46-116); Basophils % 0.1; Bilirubin, Total 0.6 mg/dL (0.2-1.0); CREATININE 0.76 mg/dL (0.55-1.02); Eosinophils % 0.6; Glucose 277 mg/dL (70-100); HCT 34.8 % (36.0-46.0); HGB 11.7 g/dL (12.0-15.5); Immature Grans % 0.1; Lymphocytes % 18.6; Mean Corp. HGB Concentration 33.6 g/dL (32.0-36.0); Mean Corpuscular Hemoglobin 28.1 pg (27.0-33.0); Mean Corpuscular Volume 83.5 fL (80-95); Mean Platelet Volume 9.9 fL (8.0-11.0); Monocytes % 6.1; Neutrophils % 74.5; Platelet Count 148 x1000/uL (130-400); Potassium 3.2 mmol/L (3.5-5.1); RBC 4.17 m/cumm (4.00-5.20); Total Protein 5.5 g/dL (6.4-8.2); White Blood Cell Count 6.71 k/cumm (4.4-10.8)
[2019-07-22 07:37] LABS: Anion Gap 12.8 mmol/L (3-11); CO2 20.2 mmol/L (21.0-32.0); Chloride 106 mmol/L (98-107); Sodium 139 mmol/L (136-145)
[2019-07-22 07:39] LABS: BUN 5 mg/dL (7-18)
[2019-07-22] MEDS: Insulin Aspart 300 UNITS/3 ML PEN SC ×3 (08:17→17:06)
[2019-07-22] MEDS: Docusate Sodium 100 MG CAP PO ×2 (08:38→21:06)
[2019-07-22] MEDS: Methadone Liquid 10 MG/ML 25 MG PO (08:38)
--- NOTE | 2019-07-22 08:44 | PDOC.CMPRO ---
- If Service Date Differs Date of service: 07/22/19 Time of Service: 08:45 Care Management Progress Note S/O:Josefina was sitting up in bed when CM came to see her. She was much more awake today and more interactive. When asked if she felt she needed any services when discharged, she responded reiki. She said she has not had it before but feels it might be helpful. Josefina also shared that she has bad spirits, one in her stomach and one in her back and when says things like I rebuke you under Jhonny' name, they get mad and hurt her. She did state that she feels she could benefit from seeing Dr. Rios or another mental health provider. A: Josefina is a 49 year old woman admitted to [facility] on 07/20/19 with DKA, Pneumonia, AMS P:Josefina will be discharged home with no new services. She will transport via private vehicle and follow up with her PCP. She may also benefit from follow up with a mental health provider. CM will continue to support patient, famiily and discharge planning needs.
[2019-07-22] MEDS: Potassium Chloride 20 MEQ TABCR 40 MEQ PO ×2 (11:00→16:36)
--- NOTE | 2019-07-22 13:45 | W.PM.PROGNOT ---
Date of Service Date of service: 07/22/19 Time of Service: 13:45 Assessment and Plan Assessment and plan (1) DKA (diabetic ketoacidoses): Status: Acute Assessment and plan: Evidence of significant hyperglycemia, urinary ketones, lactic acidosis, and high anion gap in patient with type 2 diabetes. This may be in the setting of infection, both with pneumonia and potential sinusitis, dehydration due to nausea and vomiting, and potential component of insulin noncompliance. -Has been aggressively hydrated, and anion gap has closed. She is now back on basal insulin and eating. Continue to monitor glucose. -Continue treatment of underlying infections. Ruled out for ACS serial cardiac biomarkers. -Due to access issues, central line and arterial line were obtained by surgery. (2) Pneumonia: Status: Acute Assessment and plan: Evidence of a right basilar opacity. This may represent CAP and the driving force for patient's presentation of significant hyperglycemia with evidence of DKA. However, as patient had significant episodes of vomiting need to consider the potential for aspiration as well. Also with evidence of potential sinusitis by CT of the head. -Was initiated on Levaquin which should cover the patient's pulmonary process as well as potential for sinus infection. -Ms. Higginbotham has a history of IVDA and opiate abuse, maintained on chronic methadone. Need to monitor QT carefully while on Fluoroquinolone therapy. Maintain patient on cardiac monitoring. -Will also continue metronidazole for anaerobic coverage for potential aspiration as well. Currently day #3 of antibiotic therapy. (3) OMID (acute kidney injury): Status: Acute Assessment and plan: In setting of profound dehydration and DKA. Resolved. (4) DVT prophylaxis: Status: Acute Assessment and plan: SC heparin. Subjective Subjective Interval history since last seen: 49-year-old woman with a past medical history significant for diabetes and medical noncompliance, being admitted from [facility] emergency department on 07/20 with a diagnosis of DKA and pneumonia. Ms. Higginbotham has a Past Medical History significant for IDDM with prior hospitalizations with [facility], precipitated by infection and insulin noncompliance, GERD, chronic anemia, COPD with ongoing tobacco use, schizophrenia, anxiety, and PTSD. The patient also has a prior history of IVDA and heroin/opiate abuse, currently on methadone and reportedly in remission over the past year. She has a prior diagnosis of presumed endocarditis, having refused a SAMANTHA, as well as previous infections with cellulitis and pneumonia. She also has a history of EtOH abuse, again reportedly in remission. She was diagnosed with a ventral hernia in the past as well. Ms. Higginbotham has been known to leave prior hospitalizations AMA, and has a long history of medication noncompliance. The patient initially presented to the ED on the first of this month with acute onset of nausea and vomiting, and found to be hyperglycemic. Her lab work was fairly unremarkable, and she did not have any evidence of an anion gap. She also at that time admitted being noncompliant with her insulin as prescribed. She was treated and discharged in improved condition. According to her boyfriend, Ms. Higginbotham ran out of insulin last week, experiencing some significant hyperglycemia prior to being prescribed her medication and initiating back on her insulin, which she reported being compliant with over the course of the past week. Although her blood sugars have been running high, they had not been significantly elevated and certainly not in or over the 400 range. However starting on the day prior to admission she started to feel unwell, and began to experience significantly higher blood sugars on monitor despite reported compliance with her insulin. Overnight she also became nauseous and spend a significant time vomiting. She also had an altered mental status, reportedly somnolent and not quite herself. She was brought into the ED for further evaluation. Work-up in the ED was initially difficult as IV access was an issue, with hemolyzed blood samples. However, lab work subsequently showed evidence of significant hyperglycemia with a blood sugar of 1041, undetectably low bicarb with an anion gap of 38, lactate of 4.5, and a VBG with a pH of 7. Imaging with CXR showed a right basilar opacity that was deemed atelectasis vs. Pneumonia, and CT of the head showed opacities in both the ethmoid and maxillary sinuses consistent with potential sinusitis. At that time the patient was referred for admission for further evaluation and treatment. The patient was maintained on a DKA protocol, and by the morning after admission had resolution of her DKA and normalization of her anion gap. However she remained somewhat somnolent but appropriate, and was not eating well. Overnight she improved dramatically and was asking to eat - her insulin drip was discontinued after initiation of basal insulin and oral intake. This morning she appears improved as well. Her kidney function has returned to baseline.No overnight events reported. Remains afebrile. Exam Narrative Exam Narrative: General: Patient appears comfortable, AAO X3 and appropriate when answering questions, NAD Neck: Supple CV: Regular, nontachycardic at time of exam, S1S2, No rubs, murmurs, or gallops. Pulmonary: Clear to auscultation bilaterally, no crackles, wheezing, or rhonchi Abdomen: + Bowel Sounds, soft, nondistended, obese in contour Vascular: No lower extremity edema Psych: Normal mood and affect. Objective Objective Clinical Data: Abnormal lab results 07/21/19 07/22/19 07/22/19 Range/Units 14:10 06:30 06:30 Hgb 11.7 L (12.0-15.5) g/dL Hct 34.8 L (36.0-46.0) % Potassium 3.2 L (3.5-5.1) mmol/L Carbon Dioxide 20.2 L (21.0-32.0) mmol/L Anion Gap 12.8 H (3-11) mmol/L BUN 5 L (7-18) mg/dL Glucose 277 H D (70-100) mg/dL Calcium 8.0 L (8.5-10.1) mg/dL Total Protein 5.5 L (6.4-8.2) g/dL Albumin 2.4 L (3.4-5.0) g/dL Urine Opiates Screen Positive A (Negative) Urine Methadone Screen Positive A (Negative) Vital Signs Temperature 36.6 C 07/22/19 13:15 Temperature Source Temporal Artery Scan 07/22/19 13:15 Pulse 66 07/22/19 11:07 Pulse 66 07/22/19 11:07 Respiratory Rate 25 H 07/22/19 11:07 Respiratory Effort 07/22/19 13:15 Respiratory Depth Shallow 07/22/19 13:15 Respiratory Pattern Normal 07/22/19 13:15 Blood Pressure 117/81 07/22/19 11:07 Blood Pressure Mean 88 07/22/19 11:07 Blood Pressure Position Supine 07/22/19 13:15 Pulse Oximetry 98 07/22/19 11:07 Oxygen Delivery Method Room Air 07/22/19 13:15 Oxygen Flow Rate 0 07/22/19 13:15 Pain Level 0 07/22/19 13:15 Intake & Output 07/21/19 07/22/19 07/22/19 23:59 11:59 23:59 Intake Total 2652.634 / 4550.033 2431.184 / 3671.184 1240 / 3671.184 Output Total 1150 / 1500 2475 / 3025 550 / 3025 Balance 1502.634 / 3050.033 -43.816 / 646.184 690 / 646.184 Weight 73.391 kg Intake: IV 2502.634 / 4370.033 1831.184 / 2831.184 1000 / 2831.184 Oral 150 / 180 600 / 840 240 / 840 Output: Urine 1150 / 1500 2475 / 3025 550 / 3025 Other: Urine Color Light Elizabet Yellow Light Elizabet Kensal Urine Appearance Clear Clear Clear Urine Odor None Normal Comment Best to gravity. Cloudy yellow/pink urine in collection bag Voiding quantitiy sufficiant on commode. Voiding quantitiy sufficiant on commode. Voiding Methods Bedside Commode Bedside Commode Laboratory Results WBC 6.71 k/cumm (4.4-10.8) D 07/22/19 06:30 RBC 4.17 m/cumm (4.00-5.20) 07/22/19 06:30 Hgb 11.7 g/dL (12.0-15.5) L 07/22/19 06:30 Hct 34.8 % (36.0-46.0) L 07/22/19 06:30 MCV 83.5 fL (80-95) 07/22/19 06:30 MCH 28.1 pg (27.0-33.0) 07/22/19 06:30 MCHC 33.6 g/dL (32.0-36.0) 07/22/19 06:30 RDW 13.0 % (11.7-14.6) 07/22/19 06:30 Plt Count 148 x1000/uL (130-400) 07/22/19 06:30 MPV 9.9 fL (8.0-11.0) 07/22/19 06:30 Immature Gran % 0.1 07/22/19 06:30 Neutrophils % 74.5 07/22/19 06:30 Band Neutrophils % 2.0 % 07/20/19 14:50 Lymphocytes % 18.6 07/22/19 06:30 Atypical Lymphs % Cancelled 07/20/19 12:23 Monocytes % 6.1 07/22/19 06:30 Eosinophils % 0.6 07/22/19 06:30 Basophils % 0.1 07/22/19 06:30 Metamyelocytes % Cancelled 07/20/19 12:23 Myelocytes % Cancelled 07/20/19 12:23 Promyelocytes % Cancelled 07/20/19 12:23 Absolute Neutrophils 5.00 k/cumm (1.2-6.7) 07/22/19 06:30 Absolute Lymphocytes 1.25 k/cumm (1.2-3.4) 07/22/19 06:30 Absolute Monocytes 0.41 k/cumm (0.11-0.7) 07/22/19 06:30 Absolute Eosinophils 0.04 k/cumm (0.0-0.7) 07/22/19 06:30 Absolute Basophils 0.01 k/cumm (0.0-0.2) 07/22/19 06:30 Nucleated RBCs Cancelled 07/20/19 12:23 Differential Comment Manual differential 07/20/19 14:50 Other Cell Type Cancelled 07/20/19 12:23 RBC Morphology Normal 07/20/19 14:50 Polychromasia Cancelled 07/20/19 12:23 Hypochromasia Cancelled 07/20/19 12:23 Poikilocytosis Cancelled 07/20/19 12:23 Basophilic Stippling Cancelled 07/20/19 12:23 Anisocytosis Cancelled 07/20/19 12:23 Microcytosis Cancelled 07/20/19 12:23 Macrocytosis Cancelled 07/20/19 12:23 Spherocytes Cancelled 07/20/19 12:23 Target Cells Cancelled 07/20/19 12:23 Tear Drop Cells Cancelled 07/20/19 12:23 Ovalocytes Cancelled 07/20/19 12:23 Stomatocytes Cancelled 07/20/19 12:23 Matias-Royer Bodies Cancelled 07/20/19 12:23 Christine Cells Cancelled 07/20/19 12:23 Acanthocytes (Spur) Cancelled 07/20/19 12:23 Schistocytes Cancelled 07/20/19 12:23 Sample Site Arterial line 07/20/19 15:13 pCO2 17 mmHg (34-47) L* 07/20/19 15:13 pO2 81 mmHg (83-108) L 07/20/19 15:13 O2 Saturation 96 % (94-98) 07/20/19 15:13 ABG pH 7.22 (7.35-7.45) L 07/20/19 15:13 ABG HCO3 7 mmol/L (22-28) L 07/20/19 15:13 ABG Total CO2 7 mmol/L (22-29) L 07/20/19 15:13 ABG Base Excess mmol/L (-3-3) 07/20/19 15:13 VBG pH 7.04 (7.32-7.43) L 07/20/19 08:30 VBG pCO2 22 mm/Hg (34-47) L 07/20/19 08:30 VBG pO2 75 mm/Hg (28-44) H 07/20/19 08:30 VBG HCO3 6 mmol/L (22-28) L 07/20/19 08:30 VBG Total CO2 6 mmol/L (22-29) L 07/20/19 08:30 VBG O2 Saturation 91 % (70-80) H 07/20/19 08:30 VBG Base Excess mmol/L (-3-3) 07/20/19 08:30 Oxygen Liter Flow Cancelled 07/20/19 10:59 FiO2 Cancelled 07/20/19 10:59 Sodium 139 mmol/L (136-145) 07/22/19 06:30 Potassium 3.2 mmol/L (3.5-5.1) L 07/22/19 06:30 Chloride 106 mmol/L (98-107) 07/22/19 06:30 Carbon Dioxide 20.2 mmol/L (21.0-32.0) L 07/22/19 06:30 Anion Gap 12.8 mmol/L (3-11) H 07/22/19 06:30 BUN 5 mg/dL (7-18) L 07/22/19 06:30 Creatinine 0.76 mg/dL (0.55-1.02) 07/22/19 06:30 Estimated GFR/1.73 m2 >= 60.00 (mL/min/1.73m2) 07/22/19 06:30 Glucose 277 mg/dL (70-100) H D 07/22/19 06:30 Lactate 1.7 mmol/L (0.6-1.4) H 07/21/19 06:20 Calcium 8.0 mg/dL (8.5-10.1) L 07/22/19 06:30 Phosphorus 3.3 mg/dL (2.6-4.7) 07/20/19 14:50 Magnesium 2.2 mg/dL (1.8-2.4) 07/20/19 14:50 Total Bilirubin 0.6 mg/dL (0.2-1.0) 07/22/19 06:30 AST 20 U/L (15-37) 07/22/19 06:30 ALT 18 U/L (14-59) 07/22/19 06:30 Alkaline Phosphatase 76 U/L (46-116) 07/22/19 06:30 Troponin I < 0.05 ng/mL (0.00-0.06) 07/21/19 06:20 Total Protein 5.5 g/dL (6.4-8.2) L 07/22/19 06:30 Albumin 2.4 g/dL (3.4-5.0) L 07/22/19 06:30 Urine Color Yellow (Yellow) 07/20/19 11:10 Urine Clarity Clear (Clear) 07/20/19 11:10 Urine pH 5.5 (5-8) 07/20/19 11:10 Ur Specific [place] 1.015 (1.005-1.025) 07/20/19 11:10 Urine Protein 30 mg/dL (Negative) H 07/20/19 11:10 Urine Ketones >=160 mg/dL (Negative) H 07/20/19 11:10 Urine Blood Trace-intact (Negative) H 07/20/19 11:10 Urine Nitrite Negative (Negative) 07/20/19 11:10 Urine Bilirubin Small (Negative) H 07/20/19 11:10 Urine Urobilinogen 0.2 EU/dL (Up TO 0.2) 07/20/19 11:10 Ur Leukocyte Esterase Negative (Negative) 07/20/19 11:10 Urine RBC 0-2 (0-2) 07/20/19 11:10 Urine WBC Negative HPF (0-5) 07/20/19 11:10 Ur Epithelial Cells Rare HPF (Negative) 07/20/19 11:10 Urine Crystals Few amorphous HPF (Negative) 07/20/19 11:10 Urine Bacteria Negative HPF (Negative) 07/20/19 11:10 Urine Casts Negative LPF (Negative) 07/20/19 11:10 Urine Mucus Negative (Negative) 07/20/19 11:10 Urine Other Few transitional (Negative) 07/20/19 11:10 Ur Culture Indicated? No 07/20/19 11:10 Urine Glucose 500 mg/dL (Negative) H 07/20/19 11:10 Urine Opiates Screen Positive (Negative) A 07/21/19 14:10 Urine Methadone Screen Positive (Negative) A 07/21/19 14:10 Ur Barbiturates Screen Negative (Negative) 07/21/19 14:10 Ur Tricyclics Screen Negative (Negative) 07/21/19 14:10 Ur Amphetamines Screen Negative (Negative) 07/21/19 14:10 U Benzodiazepines Scrn Negative (Negative) 07/21/19 14:10 Urine Cocaine Screen Negative (Negative) 07/21/19 14:10 Ur THC Screen Negative (Negative) 07/21/19 14:10 Ethyl Alcohol < 3.0 mg/dL (<3) 07/21/19 13:00
[2019-07-22] MEDS: levoFLOXacin 750 MG/150 ML BAG 100 MG IVPB (17:15)
[2019-07-22] MEDS: Insulin Glargine 300 UNITS/3 ML PEN 38 UNITS SC (18:51)
[2019-07-22] MEDS: Acetaminophen 325 MG TAB PO (21:06)
[2019-07-23] VITALS (32 sets, daily range): BP systolic 118–161; BP diastolic 77–92; PULSE 63–100; RESP 12–29; TEMP 36.7–37.5; O2SAT 93–100
[2019-07-23] MEDS: Insulin Aspart 300 UNITS/3 ML PEN SC ×3 (00:31→17:34)
[2019-07-23] MEDS: Normal Saline 1,000 ML 100 ML IV (02:36)
[2019-07-23] MEDS: metroNIDAZOLE 500 MG/100 ML BAG 100 MG IVPB ×2 (02:49→12:27)
[2019-07-23] MEDS: Heparin 5,000 UNITS/ML VIAL 5000 UNITS SC ×2 (06:07→14:13)
--- NOTE | 2019-07-23 06:47 | NUR.NOTE ---
All 3 ports of left subclavian central line are able to be flushed, but unable to get blood return despite moving arm around in case it was being positional.Nursing Note:
[2019-07-23] MEDS: Methadone Liquid 10 MG/ML 25 MG PO (08:34)
[2019-07-23] MEDS: Docusate Sodium 100 MG CAP PO (08:34)
[2019-07-23] MEDS: guaiFENesin 600 MG TABCR PO (08:34)
[2019-07-23] MEDS: Normal Saline Flush 10 ML SYR IVP (08:50)
[2019-07-23 09:06] LABS: Absolute Basophil Count 0.01 k/cumm (0.0-0.2); Absolute Eosinophil Count 0.04 k/cumm (0.0-0.7); Absolute Lymphocyte Count 1.12 k/cumm (1.2-3.4); Absolute Monocyte Count 0.26 k/cumm (0.11-0.7); Absolute Neutrophil Count 2.95 k/cumm (1.2-6.7); Basophils % 0.2; Eosinophils % 0.9; HCT 35.2 % (36.0-46.0); HGB 11.7 g/dL (12.0-15.5); Lymphocytes % 25.6; Mean Corp. HGB Concentration 33.2 g/dL (32.0-36.0); Mean Corpuscular Hemoglobin 27.5 pg (27.0-33.0); Mean Corpuscular Volume 82.8 fL (80-95); Mean Platelet Volume 9.7 fL (8.0-11.0); Monocytes % 5.9; Neutrophils % 67.4; Platelet Count 164 x1000/uL (130-400); RBC 4.25 m/cumm (4.00-5.20); RBC Distribution Width 13.2 % (11.7-14.6); White Blood Cell Count 4.38 k/cumm (4.4-10.8)
[2019-07-23 09:19] LABS: ALT 16 U/L (14-59); AST 17 U/L (15-37); Albumin 2.6 g/dL (3.4-5.0); Alkaline Phosphatase 79 U/L (46-116); Anion Gap 16.2 mmol/L (3-11); BUN 10 mg/dL (7-18); Bilirubin, Total 0.7 mg/dL (0.2-1.0); CO2 16.8 mmol/L (21.0-32.0); CREATININE 0.71 mg/dL (0.55-1.02); Calcium 8.1 mg/dL (8.5-10.1); Chloride 102 mmol/L (98-107); Sodium 135 mmol/L (136-145); Total Protein 5.9 g/dL (6.4-8.2)
[2019-07-23 09:28] LABS: Glucose 397 mg/dL (70-100); Potassium 4.2 mmol/L (3.5-5.1)
[2019-07-23] MEDS: DEXTROSE 5%-0.45% SALINE 1,000 ML 125 ML IV (10:12)
--- NOTE | 2019-07-23 10:17 | PDOC.CMPRO ---
- If Service Date Differs Date of service: 07/23/19 Time of Service: 10:17 Care Management Progress Note S/O:Josefina was sitting up in bed dressing herself when CM met with her. She was pleasant and smiling and announced that she was going home today. She stated that she had informed Dr. Fuentes of that fact. Josefina did agree to home health nursing and a referral was sent by CM. A: Josefina is a 49 year old woman admitted to [facility] on 07/20/19 with DKA, Pneumonia, AMS P:Josefina will be discharged home with no new services. She will transport via private vehicle and follow up with her PCP. She may also benefit from follow up with a mental health provider. CM will continue to support patient, famiily and discharge planning needs.
[2019-07-23] MEDS: INSULIN REGULAR IN 0.9 % NACL 100 UNIT/100 ML BAG IV (10:26)
[2019-07-23] MEDS: SODIUM CHLORIDE 0.45% 1,000 ML 125 ML IV (14:00)
--- NOTE | 2019-07-23 14:09 | CHAPLAIN ---
I visited with Josefina yesterday (07/12) and this afternoon. Chandan was with her. Yesterday she asked about having Reiki and I let the marketing technology coordinator know, and Josefina received Reiki today. Yesterday she seemed tired, much of her conversation was about demons she believes live inside her. She showed me a photo of a spirit she took with her cell phone. She had noticed her two cats were both staring at the same spot, so she took a photo of that spot, and believes to have captured a spirit in the photo. Josefina is a Jehovah Witness but was not interested in having me notife anyone a the [facility]. Today she said she is leaving at 4 p.m., although it's likely to be Against Medical Advice. Both Josefina and Chandan said that that Josefina has been and we know what to do from here. We can always come back if we need to, Chandan said.
[2019-07-23 14:21] LABS: Anion Gap 12.4 mmol/L (3-11); BUN 14 mg/dL (7-18); CO2 19.6 mmol/L (21.0-32.0); CREATININE 1.21 mg/dL (0.55-1.02); Calcium 8.3 mg/dL (8.5-10.1); Chloride 100 mmol/L (98-107); Estimated GFR 47.29 (mL/min/1.73m2); Glucose 480 mg/dL (70-100); Potassium 4.1 mmol/L (3.5-5.1); Sodium 132 mmol/L (136-145)
--- NOTE | 2019-07-23 14:38 | DM INPTCON_ITS ---
Date of service: 07/23/19 Time of Service: 14:38 Diabetes Inpatient Consult DESCRIPTION/ASSESSMENT: Appreciate diabetes consult for Josefina who is hospitalized with an infection and DKA. Blood sugars remain elevated but she is determined to leave to have a cigarette. A1c from October 04.4. Josefina manages her blood sugars with 39u Lantus and mealtime insulin of blood sugar/15 = dose to correct hyperglycemia. She does not appear to take insulin for carbohydrate. She has a sugar free ice coffee from [employer] every morning. Josefina requests help with self management of diabetes wanting a form she can check boxes off that she has taken her insulin and her blood sugars. Josefina voices sadness over the of her son. States she doesn't have any balbina in her life. INTERVENTION: Together we designed a chart for her to document blood sugar/insulin dose for her 2 meals and amount of insulin to take at each meal. Discussed need to add a unit or 2 if she eats pasta, bread, potato, peas, corn or rice at the meal and she voices understanding. She agrees that I will call her every morning for the next few mornings to see if she is taking her medication as directed. She identifies exercise as important but she does not like to walk outside; does not feel like dancing inside or walking in place. Discussed how that fits into her priorities and decided to focus on taking her insulin and blood sugar. PLAN: She will document her blood sugars 4 times a day; take insulin and document on the tracking form. We will be in touch by telephone tomorrow. Time Spent in Nutritional Counseling and Treatment: 20 minutes face to face
--- NOTE | 2019-07-23 15:29 | PHARADMIT ---
Admission Pharmacy Clinical Review DKA, Pneumonia, AMS Code Status Full Code Current Weight 73.2 kg Renally Cleared and Narrow Therapeutic Index Meds CrCl~42.4ml/min QTc Value / Action Taken QTC 466 (Levaquin/Methadone) BP Control, Fever BP 131/85 Afebrile Electrolytes reviewed K+ 4.1 Na++ 132 Mag 2.2 (on admission) DVT Prophylaxis Heparin SC Opiate Usage / Scheduled Bowel Regimen Ordered none Plt/SCr for Heparin / Enoxaparin Plt 164 SCr 1.21 (up) INR for Warfarin H/H stable, WBC/Bands H/H 11.7/35.2 WBC 4.38 Antibiotic appropriateness Levaquin IV Q24h...day#4 this evening, borderline renal dose adjustment, watch how Scr is on 07/24/19) Flagyl IV Cultures and Sensitivities Blood: no growth x48h Surgical ABX d/c within 24 hr DM control / Insulin Dosing BG 480 (insulin infusion started, stopped and restarted today, new premixed bag hung) Novolog and Lantus Heart Failure (Check EF%) (VAIBHAV's, B-Block, Diuretics) none IV to PO Switch Levaquin Home Meds Reviewed Home Meds Not Ordered ok Comments IVF's changed to D51/2NS....to help correct anion gap? send Methadone 25mg daily to the floor to prevent Pyxis discrepancy Has a central IV access line
--- NOTE | 2019-07-23 17:05 | W.PM.DS.N ---
Date of service: 07/23/19 Time of Service: 17:05 DS: Diagnosis Discharge Diagnosis (1) DKA (diabetic ketoacidoses): Status: Acute (2) Pneumonia: Status: Acute (3) OMID (acute kidney injury): Status: Acute Discharge Plan Disposition Patient Disposition: HOME Condition: Stable Discharge Details Chief Complaint: Nausea/Vomit/Diar Clinical Impression: DKA (diabetic ketoacidoses) Reason For Visit: DKA,PNEUMONIA,ALTERED MENTAL STATUS Admit Date/Time: 07/20/19 13:53 Admit Provider: Kevin Fuentes Attending Provider: Kevin Fuentes Primary Care Provider: Marni Doan ED Provider: Vincenzo Burns Hospital Course Hospital Course: Chief Complaint: Altered Mental Status, Hyperglycemia HPI: 49-year-old woman with a past medical history significant for IDDM and medical noncompliance, admitted from [facility] Emergency Department on 07/20 with a diagnosis of DKA and pneumonia. Ms. Higginbotham has a Past Medical History significant for IDDM with prior hospitalizations with [facility], precipitated by infection and insulin noncompliance, GERD, chronic anemia, COPD with ongoing tobacco use, schizophrenia, anxiety, and PTSD. The patient also has a prior history of IVDA and heroin/opiate abuse, currently on methadone and reportedly in remission for over a year. She has a prior diagnosis of presumed endocarditis, having refused a SAMANTHA, as well as previous infections with cellulitis and pneumonia. She also has a history of EtOH abuse, again reportedly in remission. She was diagnosed with a ventral hernia in the past as well. Ms. Higginbotham has been known to leave prior hospitalizations AMA, and has a long history of medication noncompliance. The patient initially presented to the ED on the first of this month with acute onset of nausea and vomiting, and found to be hyperglycemic. Her lab work was fairly unremarkable, and she did not have any evidence of an anion gap. She also at that time admitted being noncompliant with her insulin as prescribed. She was treated and discharged in improved condition. According to her boyfriend, Ms. Higginbotham ran out of insulin last week, experiencing some significant hyperglycemia prior to being prescribed her medication and initiating back on her insulin, which she reported being compliant with over the course of the past week. Although her blood sugars have been running high, they had not been significantly elevated and certainly not in or over the 400 range. However starting on the day prior to admission she started to feel unwell, and began to experience significantly higher blood sugars on monitor despite reported compliance with her insulin. Overnight she also became nauseous and spend a significant time vomiting. She also had an altered mental status, reportedly somnolent and not quite herself. She was brought into the ED for further evaluation. Work-up in the ED was initially difficult as IV access was an issue, with hemolyzed blood samples. However, lab work subsequently showed evidence of significant hyperglycemia with a blood sugar of 1041, undetectably low bicarb with an anion gap of 38, lactate of 4.5, and a VBG with a pH of 7. Imaging with CXR showed a right basilar opacity that was deemed atelectasis vs. Pneumonia, and CT of the head showed opacities in both the ethmoid and maxillary sinuses consistent with potential sinusitis. At that time the patient was referred for admission for further evaluation and treatment. The patient was maintained on a DKA protocol, and by the morning after admission had resolution of her DKA and normalization of her anion gap. However she remained somewhat somnolent but appropriate, and was not eating well. Overnight the next night she improved dramatically and was asking to eat - her insulin drip was discontinued after she ate and following initiation of basal insulin by the covering provider, but only at half dose. This morning she appears improved as well, but with mildly elevated gap. Her creatinine had returned to baseline, but is mildly elevated on recheck. Ms. Higginbotham is now demanding to leave, and requesting discharge and threatening to leave AMA. No overnight events reported. Remains afebrile. Hospital Course: (1) DKA (diabetic ketoacidoses): Evidence of significant hyperglycemia, urinary ketones, lactic acidosis, and high anion gap in patient with type 2 diabetes. This may be in the setting of infection, both with pneumonia and potential sinusitis, dehydration due to nausea and vomiting, and potential component of insulin noncompliance. ACS ruled out with serial cardiac biomarkers. Has been aggressively hydrated, and anion gap had closed, opened slightly this morning due to insufficient basal insulin coverage. Labwork repeated prior to discharge, and BMP has improved, with a gap of 12 following reinitiation of insulin drip and fluids. However, patient is now demanding to go home despite multiple discussions and urging to stay. - Will wait as long in the day as possible, and administer home lantus dose, feed patient, and discontinue insulin gtt 2 hours following. - Aggressive short-acting insulin dosage at home. Recommend patient check her blood sugar every 4-6 hours, with use of sliding scale to maintain glucose <200-250 if possible. - Had in-depth meeting with breastfeeding educator as well to discuss appropriate diet and insulin changes - Alicia dickson [facility] will be checking on patient daily over the course of the next few days. -Continue treatment of underlying infections. (2) Pneumonia: Evidence of a right basilar opacity - questionable finding on Xray. This may represent CAP and the driving force for patient's presentation of significant hyperglycemia with evidence of DKA. However, as patient had significant episodes of vomiting need to consider the potential for aspiration as well. Also with evidence of potential sinusitis by CT of the head. -Will finish 5 day course of Levofloxacin, to cover pulmonary process as well as potential for sinus infection. Continue Metronidazole for anaerobic coverage for potential aspiration as well. Currently day #4 of planned 7 day course. -Ms. Higginbotham has a history of IVDA and opiate abuse, maintained on chronic methadone. QT was monitored carefully while on Fluoroquinolone therapy, and remained normal. (3) OMID (acute kidney injury): In setting of profound dehydration and DKA. Improved creatinine but not at baseline. Unfortunately patient is requesting to leave prior to full resolution of OMID - will recommend repeat BMP in 2-3 days following discharge. (4) DVT prophylaxis: Was maintained on SC heparin. Home Meds and New Rx's Prescriptions: New levofloxacin 750 mg tablet 750 mg PO Q24H Qty: 2 RF: 0 metronidazole 500 mg tablet 500 mg PO Q8H Qty: 6 RF: 0 Continued epinephrine [EpiPen 2-Tejinder] 0.3 MG/0.3 ML auto-injector 0.3 mg IM ONCE Qty: 1 RF: 1 Novolog Flexpen U-100 Insulin 100 unit/mL insulin pen 5 unit subcut TID Qty: 2 RF: 2 (DME) Blood Glucose Test strip 1 ea Miscellaneous qid and Qty: 400 RF: 4 (DME) lancets [FreeStyle Lancets] 28 gauge misc 1 ea Miscellaneous QID Qty: 100 RF: 4 polyethylene glycol 3350 [Miralax] 17 gram powder in packet 17 gm PO DAILY PRN (Reason: constipation) Qty: 30 RF: 1 insulin glargine 100 unit/mL (3 mL) insulin pen 38 unit SC QHS Qty: 15 RF: 2 (DME) pen needle, diabetic 31 gauge x 1/3 needle 1 ea Miscellaneous QID Qty: 100 RF: 2 lorazepam [Ativan] 1 mg tablet 1 mg PO TID PRN (Reason: anxiety) Qty: 21 RF: 0 acetaminophen [Tylenol] 325 MG tablet 650 mg PO PRN PRNRF: 0 methadone 10 MG/ML concentrate 25 mg PO DAILY RF: 0 (DME) blood-glucose meter [FreeStyle Lite Meter] kit See Dose Instructions .ROUTE .MEDSUPPLY Qty: 1 RF: 0 (DME) lancets [Lancets, Super Thin] misc See Dose Instructions .ROUTE .MEDSUPPLY Qty: 50 RF: 0 docusate sodium [Colace] 100 mg capsule 100 mg PO BID Qty: 60 RF: 0 Discharge Instructions Additional Instructions: Please see your Primary within 1 week of discharge. Please follow the recommendations of the Rn Baby and Insulation Board Coater Operator, and take your insulin as instructed. Have blood work done in 2 days. Activity:: No strenuous activity Equipment/Supplies:: No Equipment Needed Diet:: Carb Counting Discharge Orders Discharge Orders: Discharge Order (Routine); Ordered 07/23/19 Ordered By: Kevin Fuentes Other Ambulatory Orders: Basic Metabolic Panel (Routine) Timeframe: 2 Days Location: None Selected Ordered By: Kevin Fuentes DS: Summary Status at Discharge Functional status at discharge: independent ambulation Overall status at discharge: patient is back to baseline Mental Status: mental status grossly normal Speech and Movement: speech and movement normal Mood: congruent mood Affect: normal affect Exam Narrative Exam Narrative: General: Patient appears comfortable, AAO X3, NAD Neck: Supple CV: Regular, nontachycardic at time of exam, S1S2, No rubs, murmurs, or gallops. Pulmonary: Clear to auscultation bilaterally, no crackles, wheezing, or rhonchi Abdomen: + Bowel Sounds, soft, nondistended, obese in contour Vascular: No lower extremity edema Psych: Normal mood and affect. Psych Mental Status: mental status grossly normal Speech and Movement: speech and movement normal Mood: congruent mood Affect: normal affect DS: Data Vitals/I&O Vitals and I&O: Vital Signs Temperature 36.7 C 07/23/19 15:58 Temperature Source Temporal Artery Scan 07/23/19 15:58 Pulse 77 07/23/19 15:58 Pulse 85 07/23/19 14:51 Respiratory Rate 19 07/23/19 15:58 Respiratory Effort 07/23/19 12:06 Respiratory Depth Normal 07/23/19 12:06 Respiratory Pattern Normal 07/23/19 12:06 Blood Pressure 118/77 07/23/19 15:58 Blood Pressure Mean 90 07/23/19 15:58 Blood Pressure Position Supine 07/23/19 15:58 Pulse Oximetry 95 07/23/19 15:58 Oxygen Delivery Method Room Air 07/23/19 15:58 Oxygen Flow Rate 0 07/23/19 15:58 Pain Level 0 07/23/19 12:06 Intake & Output 07/22/19 07/23/19 07/23/19 23:59 11:59 23:59 Intake Total 3342 / 5773.184 1613.267 / 2384.300 771.033 / 2384.300 Output Total 1500 / 3975 1825 / 3125 1300 / 3125 Balance 1842 / 1798.184 -211.733 / -740.700 -528.967 / -740.700 Weight 73.2 kg Intake: IV 2302 / 4133.184 1213.267 / 1624.300 411.033 / 1624.300 Oral 1040 / 1640 400 / 760 360 / 760 Output: Urine 1500 / 3975 1825 / 3125 1300 / 3125 Other: Urine Color Yellow [place] Straw Urine Appearance Clear Clear Cloudy Urine Odor Normal None None Comment mixed with stool. Void of 525 found in the commode. Urine light pink. with stool. Stool Occult Blood Negative Stool Size Small Stool Characteristics Formed Formed Hard Hard Voiding Methods Bedside Commode Bedside Commode Bedside Commode Data Completed and Pending Completed studies during hospitalization [Text1]: Exam(s) PROCEDURE INFORMATION: Exam: XR Chest, 2 Views Exam date and time: 07/20/2019 9:47 AM Clinical history: 49 years old, female; Other: Hyperglycemia, mental status change TECHNIQUE: Imaging protocol: XR of the chest Views: 2 views. COMPARISON: CR CHEST 2 VIEWS PA,LAT 12/17/2017 11:06 AM FINDINGS: Lungs: Opacity in the right base may represent atelectasis or pneumonia. Pleural space: Unremarkable. No pleural effusion. No pneumothorax. Heart/Mediastinum: Cardiomegaly and tortuous aorta Bones/joints: Unremarkable. Other findings: Patient is leaning to the right IMPRESSION: Opacity in the right base may represent atelectasis or pneumonia. Exam(s) a CT:CT head wo EXAM: CT HEAD WO CLINICAL HISTORY: mental status change TECHNIQUE: The exam was performed according to the usual protocol without contrast. COMPARISON: No exams were available for comparison FINDINGS: There is normal le-white matter differentiation. No acute intracranial hemorrhage, midline shift, or mass effect. The ventricles are intact. The basilar cisterns are patent. There is mucosal thickening seen in the ethmoid air cells and the right maxillary sinus. The remaining visualized paranasal sinuses are clear as are the mastoid air cells. The calvarium is intact. IMPRESSION: 1. No acute intracranial process. 2. Mild sinusitis. Exam(s) a RAD:XR portable chest AP post line EXAM: XR PORTABLE CHEST AP POST LINE INDICATION: central line confirmation. COMPARISON: XR CHEST 2V PA LATERAL from 07/20/2019 TECHNIQUE: 2D digital imaging was performed. FINDINGS: There is poor inspiration. Heart size and pulmonary vasculature are within normal limits. There is a left subclavian central venous catheter. The tip of the catheter is seen at the junction of the brachiocephalic vein and superior vena cava. The right lung is clear. There is increased opacity in the left lung base. This may be due to overlying soft tissue. Left basilar infiltrate or left pleural effusion is considered less likely. IMPRESSION: Poor inspiration. Left basilar opacity. This may be due to overlying soft tissue. Left basilar infiltrate or pleural effusion are considered less likely. Labs on day of discharge: Labs from last 24 hours 07/23/19 07/23/19 07/23/19 13:55 13:55 08:55 WBC 4.38 L D RBC 4.25 Hgb 11.7 L Hct 35.2 L MCV 82.8 MCH 27.5 MCHC 33.2 RDW 13.2 Plt Count 164 MPV 9.7 Immature Gran % 0.0 Neutrophils % 67.4 Lymphocytes % 25.6 Monocytes % 5.9 Eosinophils % 0.9 Basophils % 0.2 Absolute Neutrophils 2.95 Absolute Lymphocytes 1.12 L Absolute Monocytes 0.26 Absolute Eosinophils 0.04 Absolute Basophils 0.01 Sodium 132 L Potassium 4.1 Chloride 100 Carbon Dioxide 19.6 L Anion Gap 12.4 H BUN 14 Creatinine 1.21 H D Estimated GFR/1.73 m2 47.29 Glucose Cancelled 480 H Calcium 8.3 L Total Bilirubin AST ALT Alkaline Phosphatase Total Protein Albumin 07/23/19 08:55 WBC RBC Hgb Hct MCV MCH MCHC RDW Plt Count MPV Immature Gran % Neutrophils % Lymphocytes % Monocytes % Eosinophils % Basophils % Absolute Neutrophils Absolute Lymphocytes Absolute Monocytes Absolute Eosinophils Absolute Basophils Sodium 135 L Potassium 4.2 D Chloride 102 Carbon Dioxide 16.8 L Anion Gap 16.2 H BUN 10 Creatinine 0.71 Estimated GFR/1.73 m2 >= 60.00 Glucose 397 H D Calcium 8.1 L Total Bilirubin 0.7 AST 17 ALT 16 Alkaline Phosphatase 79 Total Protein 5.9 L Albumin 2.6 L Preliminary micro results at discharge 07/20/19 15:07 Blood Culture - Preliminary Blood NO GROWTH 48 HOURS 07/20/19 14:50 Blood Culture - Preliminary Blood NO GROWTH 48 HOURS [facility] Medical History Alcohol abuse (Inactive) Alcohol dependence in remission (Inactive) Anxiety (Inactive) Cellulitis of left hand (Inactive 02/01/15) a. secondary to cat bite vs. IVDU b. has 13 cats at home c. denies ongoing IVDU at this time Closed fracture of distal end of right fibula (Inactive 10/04/16) Constipation (Inactive) COPD (chronic obstructive pulmonary disease) (Chronic) Current smoker (Inactive 02/01/15) x 29 years Depressive disorder (Inactive) Diabetes mellitus, type II (Inactive) a. chronic noncompliance b. multiple episodes of admission for [facility] c. ? 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) Hyperlipemia (Acute) Hyperlipidemia (Inactive) statin started Non compliance with medical treatment (Inactive 02/01/15) Panic disorder (Inactive) PTSD (post-traumatic stress disorder) (Acute) Schizophrenia (Chronic) Umbilical hernia, incarcerated (Inactive) Ventral hernia without obstruction or gangrene (Inactive) Social History Smoking/Tobacco Use Status: Current every day Tobacco Type: cigarettes Alcohol Intake: current Alcohol Intake frequency: 3 or more drinks per day Drug use: Current Sobriety Substance use type: does not use Do you feel safe at home: Yes Do you feel safe in your relationship?: Yes Additional Social history: Ms. Higginbotham has a significant other in the form of a boyfriend. Her only child, a son, reportedly over the last 1 1/2 years. Continued tobacco use. 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 Intermitted EtOH use.
[2019-07-23] MEDS: Insulin Glargine 300 UNITS/3 ML PEN 38 UNITS SC (17:07)
[2019-07-23] MEDS: levoFLOXacin 750 MG/150 ML BAG 100 MG IVPB (17:37)
== END 2019-07-23 19:30 | disposition home or self-care (01) | DRG 637 ==
LOC: ER 14:08 → ICU 14:19
PROVIDERS: Internal Medicine; Surgery; Admitting Provider Internal Medicine; Emergency Provider Emergency Medicine; PCP Family Medicine; Visit Provider Internal Medicine
DX: E11.10 Type 2 diabetes mellitus with ketoacidosis without coma (principal); J18.9 Pneumonia, unspecified organism; N17.9 Acute kidney failure, unspecified; J44.0 Chronic obstructive pulmonary disease with (acute) lower respiratory infection; F11.20 Opioid dependence, uncomplicated; T38.3X6A Underdosing of insulin and oral hypoglycemic [antidiabetic] drugs, initial encounter; Z91.128 Patient's intentional underdosing of medication regimen for other reason; I95.9 Hypotension, unspecified; Z79.4 Long term (current) use of insulin; Z91.14 Patient's other noncompliance with medication regimen; K21.9 Gastro-esophageal reflux disease without esophagitis; D50.9 Iron deficiency anemia, unspecified; F17.210 Nicotine dependence, cigarettes, uncomplicated; F20.9 Schizophrenia, unspecified; F41.9 Anxiety disorder, unspecified; F43.10 Post-traumatic stress disorder, unspecified; J32.9 Chronic sinusitis, unspecified; F11.11 Opioid abuse, in remission; F10.11 Alcohol abuse, in remission; Z71.3 Dietary counseling and surveillance; Z78.1 Physical restraint status
CPT/HCPCS: 36415; 36416; 71045; 80048; 80051; 80053; 80307; 82805; 82947; 82962; 87040; 93005; 96361; 96365; 96366; 96375; 99232; 99233; 99239; 99253; 99285; 99291; 70450; 71046; 80320; 81003; 81015; 83605; 83735; 84100; 84484; 85025; 93010; 99284; J0131; J0696; J1644; J1956; J2060; J2405; J3480; J3490

== ENCOUNTER 2019-08-06 10:52 | Emergency (ER) | payer MEDICAID, SELFPAY ==
[2019-08-06 11:00] VITALS: BP 124/85; PULSE 72; RESP 18; TEMP 37.2; O2SAT 99
--- NOTE | 2019-08-06 11:29 | W.ED.GENAD ---
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 Primary Care Provider: Marni Daon ED Provider: Vincenzo Burns Home Meds and New Rx's Prescriptions: New cephalexin 500 mg capsule 500 mg PO TID 7 Days Qty: 21 RF: 0 Continued levalbuterol HCl [Xopenex] 1.25 mg/3 mL solution for nebulization 2.5 mg IH Q1-4H PRN (Reason: shortness of breath or wheezing) Qty: 36 RF: 0 epinephrine [EpiPen 2-Tejinder] 0.3 MG/0.3 ML auto-injector 0.3 mg IM ONCE Qty: 1 RF: 1 Novolog Flexpen U-100 Insulin 100 unit/mL insulin pen 5 unit subcut TID Qty: 2 RF: 2 (DME) Blood Glucose Test strip 1 ea Miscellaneous qid and Qty: 400 RF: 4 (DME) lancets [FreeStyle Lancets] 28 gauge misc 1 ea Miscellaneous QID Qty: 100 RF: 4 polyethylene glycol 3350 [Miralax] 17 gram powder in packet 17 gm PO DAILY PRN (Reason: constipation) Qty: 30 RF: 1 insulin glargine 100 unit/mL (3 mL) insulin pen 38 unit SC QHS Qty: 15 RF: 2 (DME) pen needle, diabetic 31 gauge x 1/3 needle 1 ea Miscellaneous QID Qty: 100 RF: 2 lorazepam [Ativan] 1 mg tablet 1 mg PO BID MDD 2mg PRN (Reason: anxiety) Qty: 20 RF: 0 albuterol sulfate 2.5 mg/0.5 mL solution for nebulization 5 mg IH Q6H PRN (Reason: shortness of breath or wheezing) Qty: 30 RF: 2 acetaminophen [Tylenol] 325 MG tablet 650 mg PO PRN PRNRF: 0 methadone 10 MG/ML concentrate 25 mg PO DAILY RF: 0 (DME) blood-glucose meter [FreeStyle Lite Meter] kit See Dose Instructions .ROUTE .MEDSUPPLY Qty: 1 RF: 0 (DME) lancets [Lancets, Super Thin] misc See Dose Instructions .ROUTE .MEDSUPPLY Qty: 50 RF: 0 docusate sodium [Colace] 100 mg capsule 100 mg PO BID Qty: 60 RF: 0 levofloxacin 750 mg tablet 750 mg PO Q24H Qty: 2 RF: 0 metronidazole 500 mg tablet 500 mg PO Q8H Qty: 6 RF: 0 Discharge Instructions Instructions: Folliculitis (ED) Additional Instructions: May apply warm compress to area to speed healing. Mupirocin ointment 2-3 times per day for 7 to 10 days time Take antibiotics as prescribed Return if you have fever, foul-smelling discharge, or any other acute concern. Medical Decision Making 49-year-old female presents with infected pubic hair after shaving. She is afebrile, well-appearing, without other complaints. There is no evidence of abscess. I will treat both with topical mupirocin as well as oral Keflex. She understands homecare as well as return precautions. HPI General Mode of arrival: ambulatory. Date/Time Provider Initiated Documentation: 08/06/19 11:06. Information obtained by: patient. History of Present Illness 49 year old F presents to the emergency department with the chief complaint of Superior pubic hair infection, described as mild, Quality is described as dull and constant, and is localized to the pelvis. Patient started experiencing this day(s) and it has been constant. No relieving factors improve symptom(s), No exacerbating factors reported . Patient notes denies fever/chills. Patient did receive the following treatments prior to arrival, none Related Data Home Medications Medication Instructions Recorded Confirmed epinephrine [EpiPen 2-Tejinder] 0.3 mg IM ONCE #1 pen 04/01/13 07/25/19 acetaminophen [Tylenol] 650 mg PO PRN PRN 04/16/15 07/25/19 methadone 25 mg PO DAILY 06/09/15 07/25/19 insulin aspart U-100 100 unit/mL 5 unit SUBCUT TID #2 box 06/14/18 07/25/19 (3 mL) subcutaneous pen blood-glucose meter [FreeStyle #1 each 09/02/18 07/25/19 Lite Meter] lancets [Lancets, Super Thin] #50 each 10/26/18 07/25/19 blood sugar diagnostic #400 strip 02/16/19 07/25/19 lancets 28 gauge #100 each 04/04/19 07/25/19 polyethylene glycol 3350 17 gram 17 gm PO DAILY PRN #30 each 04/04/19 07/25/19 oral powder packet docusate sodium [Colace] 100 mg PO BID #60 cap 04/23/19 07/25/19 insulin glargine 100 unit/mL (3 38 unit SC QHS #15 ml 07/02/19 07/25/19 mL) subcutaneous pen pen needle, diabetic 31 gauge x #100 ea 07/09/19 07/25/19 1 levofloxacin 750 mg PO Q24H #2 tab 07/23/19 07/25/19 metronidazole 500 mg PO Q8H #6 tab 07/23/19 07/25/19 levalbuterol HCl 1.25 mg/3 mL 2.5 mg IH Q1-4H PRN #36 ml 07/25/19 07/25/19 solution for nebulization albuterol sulfate 2.5 mg/0.5 mL 5 mg IH Q6H PRN #30 each 07/29/19 solution for nebulization lorazepam 1 mg tablet 1 mg PO BID PRN #20 tab MDD 2mg 07/29/19 cephalexin 500 mg PO TID 7 Days #21 cap 08/06/19 Previous Rx's Medication Instructions Recorded insulin aspart U-100 100 unit/mL 5 unit SUBCUT TID #2 box 06/14/18 (3 mL) subcutaneous pen blood-glucose meter [FreeStyle #1 each 09/02/18 Lite Meter] lancets [Lancets, Super Thin] #50 each 10/26/18 blood sugar diagnostic #400 strip 02/16/19 lancets 28 gauge #100 each 04/04/19 polyethylene glycol 3350 17 gram 17 gm PO DAILY PRN #30 each 04/04/19 oral powder packet docusate sodium [Colace] 100 mg PO BID #60 cap 04/23/19 insulin glargine 100 unit/mL (3 38 unit SC QHS #15 ml 07/02/19 mL) subcutaneous pen pen needle, diabetic 31 gauge x #100 ea 07/09/1909/26 levofloxacin 750 mg PO Q24H #2 tab 07/23/19 metronidazole 500 mg PO Q8H #6 tab 07/23/19 levalbuterol HCl 1.25 mg/3 mL 2.5 mg IH Q1-4H PRN #36 ml 11/01/19 solution for nebulization albuterol sulfate 2.5 mg/0.5 mL 5 mg IH Q6H PRN #30 each 07/29/19 solution for nebulization lorazepam 1 mg tablet 1 mg PO BID PRN #20 tab MDD 2mg 07/29/19 cephalexin 500 mg PO TID 7 Days #21 cap 08/06/19 Allergies Allergy/AdvReac Type Severity Reaction Status Date / Time venom-honey bee Allergy Intermediate Unverified 07/25/19 14:00 [bee venom (honey bee)] Sulfa (Sulfonamide Allergy Rash & Unverified 07/25/19 14:00 Antibiotics) Shortness of Breath hydroxyzine HCl AdvReac Intermediate nausea/vomiting, Unverified 07/25/19 14:00 [From Vistaril] palpitations 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 No fever or chills. 6 systems reviewed and otherwise negative [facility] Medical History Alcohol abuse (Inactive) Alcohol dependence in remission (Inactive) Anxiety (Inactive) Cellulitis of left hand (Inactive 02/01/15) a. secondary to cat bite vs. IVDU b. has 13 cats at home c. denies ongoing IVDU at this time Closed fracture of distal end of right fibula (Inactive 10/04/16) Constipation (Inactive) COPD (chronic obstructive pulmonary disease) (Chronic) Current smoker (Inactive 02/01/15) x 29 years Depressive disorder (Inactive) Diabetes mellitus, type II (Inactive) a. chronic noncompliance b. multiple episodes of admission for [facility] c. ? 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) Hyperlipemia (Acute) Hyperlipidemia (Inactive) statin started Non compliance with medical treatment (Inactive 02/01/15) Panic disorder (Inactive) PTSD (post-traumatic stress disorder) (Acute) Schizophrenia (Chronic) Umbilical hernia, incarcerated (Inactive) Ventral hernia without obstruction or gangrene (Inactive) Social History Smoking/Tobacco Use Status: Current every day Tobacco Type: cigarettes Alcohol Intake: current Alcohol Intake frequency: 3 or more drinks per day Drug use: Current Sobriety Substance use type: does not use Do you feel safe at home: Yes Do you feel safe in your relationship?: Yes Additional Social history: Ms. Higginbotham has a significant other in the form of a boyfriend. Her only child, a son, reportedly over the last 1 1/2 years. Continued tobacco use. 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 Intermitted EtOH use. Exam Narrative Exam Narrative: GEN: awake, alert, oriented 3. Pleasant, well groomed, interactive. HEAD: Normocephalic, atraumatic ENT: Mucous membranes moist, oropharynx unremarkable, External ear exam unremarkable EYES: PERRL, EOMI NECK: Full ROM, no REZA, no menigismus CHEST/RESP: Nontender, clear to auscultation bilateral, no wheeze/rhonchi/rales CARDIOVASCULAR: RRR, no murmur, rub bebo. 2+ Rad pulse bilateral ABDOMEN: Soft, nontender, no mass. +Bowel sounds. 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 EXT: Full ROM, no edema, no rash Neuro: Grossly normal neurologic exam, conversant, interactive. Psych: Speech fluent, thoughts congruent, affect normal Course Vital Signs Vital signs: Vital Signs Temperature 37.2 C 08/06/19 11:00 Pulse 72 08/06/19 11:00 Respiratory Rate 18 08/06/19 11:00 Blood Pressure 124/85 08/06/19 11:00 Pulse Oximetry 99 08/06/19 11:00 Temperature 37.2 C 08/06/19 11:00 Temperature Source Skin 08/06/19 11:00 Pulse 72 08/06/19 11:00 Respiratory Rate 18 08/06/19 11:00 Respiratory Effort 08/06/19 11:04 Blood Pressure 124/85 08/06/19 11:00 Blood Pressure Position Sitting 08/06/19 11:00 Pulse Oximetry 99 08/06/19 11:00 Oxygen Delivery Method Room Air 08/06/19 11:00 Oxygen Flow Rate 0 08/06/19 11:00 Pain Level 8 08/06/19 11:23
[2019-08-06 11:32] LABS: Bilirubin Negative (Negative); Blood Negative (Negative); Clarity Clear (Clear); Glucose 250 mg/dL (Negative); Ketones Negative (Negative); Leukocyte Esterase Negative (Negative); Nitrite Negative (Negative); Urobilinogen 0.2 EU/dL (Up TO 0.2)
[2019-08-06] MEDS: Cephalexin 500 MG CAP PO (11:37)
== END 2019-08-06 11:51 | disposition home or self-care (01) ==
PROVIDERS: Emergency Provider Emergency Medicine; PCP Family Medicine
DX: L73.9 Follicular disorder, unspecified (principal)
CPT/HCPCS: 99283; 81003

== ENCOUNTER 2019-10-21 07:00 | Outpatient (CLI) | payer MEDICAID, SELFPAY ==
[2019-10-21 12:48] LABS: HCT 41.2 % (36.0-46.0); HGB 13.7 g/dL (12.0-15.5); Mean Corp. HGB Concentration 33.3 g/dL (32.0-36.0); Mean Corpuscular Hemoglobin 27.6 pg (27.0-33.0); Mean Corpuscular Volume 82.9 fL (80-95); Mean Platelet Volume 9.7 fL (8.0-11.0); Platelet Count 291 x1000/uL (130-400); RBC 4.97 m/cumm (4.00-5.20); RBC Distribution Width 13.2 % (11.7-14.6); White Blood Cell Count 5.49 k/cumm (4.4-10.8)
[2019-10-21 12:50] LABS: ALT 19 U/L (14-59); AST 15 U/L (15-37); Albumin 3.4 g/dL (3.4-5.0); Alkaline Phosphatase 81 U/L (46-116); Anion Gap 7.6 mmol/L (3-11); BUN 13 mg/dL (7-18); Bilirubin, Total 0.5 mg/dL (0.2-1.0); CO2 32.4 mmol/L (21.0-32.0); CREATININE 0.72 mg/dL (0.55-1.02); Calcium 8.3 mg/dL (8.5-10.1); Calculated LDL 123 mg/dL (<100); Chloride 104 mmol/L (98-107); Cholesterol 209 mg/dL (<200); Glucose 71 mg/dL (74-106); HDL Cholesterol 52 mg/dL (40-60); Magnesium 1.7 mg/dL (1.8-2.4); Potassium 4.2 mmol/L (3.5-5.1); Sodium 144 mmol/L (136-145); Total Protein 6.6 g/dL (6.4-8.2); Triglyceride 172 mg/dL (<150)
[2019-10-21 13:56] LABS: Hemoglobin A1C 10.3 % (3.8-5.6)
== END 2019-10-21 07:20 ==
PROVIDERS: PCP Family Medicine; Visit Provider Family Medicine
DX: E11.9 Type 2 diabetes mellitus without complications (principal); E83.42 Hypomagnesemia; Z86.2 Personal history of diseases of the blood and blood-forming organs and certain disorders involving the immune mechanism
CPT/HCPCS: 36415; 80053; 80061; 85027; 83036; 83735

== ENCOUNTER 2019-11-19 13:03 | Emergency (ER) | payer MEDICAID, SELFPAY ==
--- NOTE | 2019-11-19 13:00 | DI.CT_ITS ---
EXAM: CT BRAIN AND NECK CTA CLINICAL HISTORY: VOMITING, HEADACHE TECHNIQUE: Noncontrast head CT followed by CT angiography of the head and neck. Axial CT angiograph y was performed with multislice acquisition and multiplanar and/or 3D reconstructions. COMPARISON: CT ABDOMEN PELVIS W from 04/23/2019 FINDINGS: No intracranial hemorrhage or skull fracture is seen. The ventricles are normal in size. No mass or infarct is visible. There are no abnormal enhancing lesions in the brain. The common carotid arteri es are tortuous. There is also significant tortuosity of both internal carotid arteries. There is n o evidence of vascular occlusion, stenosis or dissection. The vertebral and basilar arteries appear patent. No aneurysms are seen. Degenerative changes are seen in the cervical spine. There is conge nital fusion between C2 and C3. Visualized portions of the upper lobes appear clear. IMPRESSION: Negative CT angiography of the head and neck.
[2019-11-19 13:05] VITALS: BP 163/92; PULSE 61; RESP 18; TEMP 36.2; O2SAT 99
[2019-11-19] MEDS: ACETAMINOPHEN 1,000 MG/100 ML BTL 400 MG IVPB (13:28)
[2019-11-19] MEDS: Normal Saline 1,000 ML 1000 ML IV (13:30)
[2019-11-19] MEDS: methylPREDNISolone SUCC 125 MG VIAL IVP (13:30)
[2019-11-19] MEDS: diphenhydrAMINE 50 MG/ML VIAL 25 MG IVP (13:30)
[2019-11-19] MEDS: Prochlorperazine 10 MG/2 ML VIAL IVP (13:31)
[2019-11-19 13:36] LABS: Absolute Eosinophil Count 0.01 k/cumm (0.0-0.7); Absolute Monocyte Count 0.13 k/cumm (0.11-0.7); Absolute Neutrophil Count 3.22 k/cumm (1.2-6.7); Eosinophils % 0.2; HCT 44.2 % (36.0-46.0); HGB 14.8 g/dL (12.0-15.5); Lymphocytes % 22.9; Mean Corp. HGB Concentration 33.5 g/dL (32.0-36.0); Mean Corpuscular Hemoglobin 26.2 pg (27.0-33.0); Mean Corpuscular Volume 78.2 fL (80-95); Mean Platelet Volume 8.9 fL (8.0-11.0); Neutrophils % 73.9; Platelet Count 305 x1000/uL (130-400); RBC 5.65 m/cumm (4.00-5.20); RBC Distribution Width 12.9 % (11.7-14.6); White Blood Cell Count 4.36 k/cumm (4.4-10.8)
[2019-11-19] MEDS: LORazepam 2 MG/ML VIAL 0.5 MG IVP (13:40)
--- NOTE | 2019-11-19 13:42 | W.ED.GENAD ---
Discharge Plan Disposition Patient Disposition: HOME Condition: Good Discharge Details Chief Complaint: Nausea/Vomit/Diar Clinical Impression: Headache, Gastroenteritis Primary Care Provider: Marni Doan ED Provider: Luis A Owusu Home Meds and New Rx's Prescriptions: New ondansetron HCl [Zofran] 4 mg tablet 4 mg PO Q8H Qty: 12 RF: 0 No Action paroxetine HCl 40 mg tablet 40 mg PO DAILY Qty: 30 RF: 2 nicotine (polacrilex) 2 mg lozenge 2 mg BC Q2H PRN (Reason: nicotine cravings) Qty: 72 RF: 1 Metamucil 3.4 gram/5.4 gram powder 1 tbs PO .3-5x/week RF: 0 epinephrine [EpiPen 2-Tejinder] 0.3 MG/0.3 ML auto-injector 0.3 mg IM ONCE Qty: 1 RF: 1 insulin aspart U-100 [Novolog Flexpen U-100 Insulin] 100 unit/mL insulin pen 5 unit subcut TID Qty: 2 RF: 2 (DME) Blood Glucose Test strip 1 ea Miscellaneous qid and Qty: 400 RF: 4 (DME) lancets [FreeStyle Lancets] 28 gauge misc 1 ea Miscellaneous QID Qty: 100 RF: 4 polyethylene glycol 3350 [Miralax] 17 gram powder in packet 17 gm PO DAILY PRN (Reason: constipation) Qty: 30 RF: 1 (DME) pen needle, diabetic 31 gauge x 1/3 needle 1 ea Miscellaneous QID Qty: 100 RF: 2 albuterol sulfate 2.5 mg/0.5 mL solution for nebulization 5 mg IH Q6H PRN (Reason: shortness of breath or wheezing) Qty: 30 RF: 2 mupirocin 2 % ointment 1 applic TP TID PRN (Reason: skin infection) Qty: 22 RF: 1 clotrimazole 1 % cream 1 applic TP BID Qty: 28 RF: 2 insulin glargine 100 unit/mL (3 mL) insulin pen 38 unit SC QHS Qty: 15 RF: 2 atorvastatin 20 mg tablet 20 mg PO DAILY Qty: 90 RF: 4 omeprazole magnesium [Acid [employer] (omeprazole)] 20 mg capsule,delayed release(DR/EC) 20 mg PO DAILY Qty: 30 RF: 3 lorazepam [Ativan] 1 mg tablet 1 mg PO BID MDD 2mg PRN (Reason: anxiety) Qty: 25 RF: 0 acetaminophen [Tylenol] 325 MG tablet 650 mg PO PRN PRNRF: 0 (DME) blood-glucose meter [FreeStyle Lite Meter] kit See Dose Instructions .ROUTE .MEDSUPPLY Qty: 1 RF: 0 (DME) lancets [Lancets, Super Thin] misc See Dose Instructions .ROUTE .MEDSUPPLY Qty: 50 RF: 0 docusate sodium [Colace] 100 mg capsule 100 mg PO BID Qty: 60 RF: 0 Discharge Instructions Instructions: Gastroenteritis (ED), General Headache (ED) Additional Instructions: At this time the CT scan of your head shows no evidence of tumor mass bleed or abnormality. Your abdominal CT scan shows no significant abnormality especially with your hernia or other complications. I suspect your symptoms are likely from a virus similar to what your significant other is suffering from. Please drink plenty of fluids, take the Zofran as needed for nausea. If you notice any worsening of your symptoms, or any new symptoms such as vomiting, diarrhea, fever, chills, shortness of breath, chest pain, numbness, weakness, or fainting , please return immediately to the emergency department for reevaluation. Please follow up with your primary care provider as soon as possible for reassessment and reevaluation. As always, it was a pleasure participating in your medical care today. Referrals: Marni Doan MD [Primary Care Provider] - Medical Decision Making 49-year-old female with a past medical history of alcohol abuse, COPD, type 2 diabetes, depressive disorder, diabetic nephropathy, PTSD, schizophrenia, previous ventral hernia surgically repaired, presents today for evaluation of vomiting. Patient states that this morning she woke up and had a mild to moderate headache, she states she does not usually get headaches. After this she began developed nausea, she had an episode of vomiting which significantly worsened her headache. Since then she has had multiple episodes of vomiting. She denies any blood in her vomit. She denies any diarrhea. She denies any chest pain or shortness of breath. She does admit to right-sided abdominal pain. EMS was contacted, she was given 1 mg Zofran but still has mild to moderate vomiting. She did drink a few twisted teas yesterday, but denies any other alcohol use. The patient denies any headache red flags of worst headache of life, thunderclap headache, neck pain, fever, chills, concerning family history of polycystic kidney disease, Marfan syndrome, Kareen-Danlos syndrome, abdominal aortic aneurysm, aortic dissection, or intracranial aneurysm. No other complaints at this time. Of note she states that her significant other did have near identical symptoms that started yesterday. Physical exam demonstrates no focal neurologic deficits. She does have mild to moderate tenderness in the right side of her abdomen. Differential is highest for viral gastroenteritis that started her symptoms, however her significant notable headache which is atypical for her is slightly concerning. Differential also includes acute intracranial pathology although this is less likely. We will rehydrate, give migraine cocktail, get CT imaging of the head to rule out aneurysm or bleed, CT of the abdomen reassess. 3:44 PM On reassessment the patient is doing significantly better. She states that the headache is notably improved. She has been able to tolerate p.o. without difficulty. She feels well. Influenza is negative, laboratory work-up is relatively benign, no significant white count, no bandemia, left shift, or electrolyte abnormality. Renal function is stable, lipase normal. CT scans of the head and CT of the head, in conjunction with CT scan of the abdomen shows no evidence of acute intracranial pathology, her scan of the abdomen shows no evidence of incarceration or strangulation of her hernia. Repeat abdominal exam she has no significant abdominal tenderness whatsoever. No evidence of acute surgical abdomen. Repeat exam continues to demonstrate signs and symptoms clinically inconsistent with meningitis, or acute intracranial pathology. At this time I feel the patient symptoms are likely secondary to a viral gastroenteritis similar to what her significant other is having, which then brought about and/or worsened her headache/migraine. Discussed red flags which to return. Patient will be discharged home with Susan. I have extensively reviewed the treatment plan and discharge instructions with the patient. I have addressed all patient concerns at this time. The patient was made aware of what symptoms to monitor for that would warrant a return to the emergency department. Discussed the plan with the patient, they demonstrate verbal understanding and agreement with our assessment and plan at this time. EKG 13: 37 Rate 56, intervals normal, sinus bradycardia, no significant ST elevations or depressions, diffuse nonspecific T wave abnormalities, comparison from previous EKG from 06/2019 demonstrates identical unchanged findings. No evidence of STEMI. FINDINGS: Heart size is normal. No vascular calcifications or aortic aneurysm is seen. Visualized portions of the lungs show dependent changes. The liver, gallbladder, spleen, adrenals and kidneys are unremarkable. There is pancreatic atrophy and stable dilatation of the common bile duct. No common duct stone or pancreatic mass is seen. There is no abnormal gastric, small or large bowel distension. There is a moderate to increased quantity of stool seen throughout the colon. The uterus, ovaries and urinary bladder are unremarkable. There is a fatty containing hernia seen just above the umbilicus, which appears unchanged. No significant bony abnormalities are seen. IMPRESSION: Stable appearance of fatty containing hernia above the umbilicus. No acute abnormalities are seen in the abdomen or pelvis. FINDINGS: No intracranial hemorrhage or skull fracture is seen. The ventricles are normal in size. No mass or infarct is visible. There are no abnormal enhancing lesions in the brain. The common carotid arteries are tortuous. There is also significant tortuosity of both internal carotid arteries. There is no evidence of vascular occlusion, stenosis or dissection. The vertebral and basilar arteries appear patent. No aneurysms are seen. Degenerative changes are seen in the cervical spine. 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 Visualized portions of the upper lobes appear clear. IMPRESSION: Negative CT angiography of the head and neck HPI General Date/Time Provider Initiated Documentation: 11/19/19 13:08. HPI Narrative: 49-year-old female with a past medical history of alcohol abuse, COPD, type 2 diabetes, depressive disorder, diabetic nephropathy, PTSD, schizophrenia, previous ventral hernia surgically repaired, presents today for evaluation of vomiting. Patient states that this morning she woke up and had a mild to moderate headache, she states she does not usually get headaches. After this she began developed nausea, she had an episode of vomiting which significantly worsened her headache. Since then she has had multiple episodes of vomiting. She denies any blood in her vomit. She denies any diarrhea. She denies any chest pain or shortness of breath. She does admit to right-sided abdominal pain. EMS was contacted, she was given 1 mg Zofran but still has mild to moderate vomiting. She did drink a few twisted teas yesterday, but denies any other alcohol use. The patient denies any headache red flags of worst headache of life, thunderclap headache, neck pain, fever, chills, concerning family history of polycystic kidney disease, Marfan syndrome, Kareen-Danlos syndrome, abdominal aortic aneurysm, aortic dissection, or intracranial aneurysm. No other complaints at this time. Of note she states that her significant other did have near identical symptoms that started yesterday. Related Data Home Medications Medication Instructions Recorded Confirmed epinephrine [EpiPen 2-Tejinder] 0.3 mg IM ONCE #1 pen 04/01/13 11/19/19 acetaminophen [Tylenol] 650 mg PO PRN PRN 04/16/15 11/19/19 insulin aspart U-100 100 unit/mL 5 unit SUBCUT TID #2 box 06/14/18 11/19/19 (3 mL) subcutaneous pen blood-glucose meter [FreeStyle #1 each 09/02/18 11/19/19 Lite Meter] lancets [Lancets, Super Thin] #50 each 10/26/18 11/19/19 blood sugar diagnostic #400 strip 02/16/19 11/19/19 lancets 28 gauge #100 each 04/04/19 11/19/19 polyethylene glycol 3350 17 gram 17 gm PO DAILY PRN #30 each 04/04/19 11/19/19 oral powder packet docusate sodium [Colace] 100 mg PO BID #60 cap 04/23/19 11/19/19 pen needle, diabetic 31 gauge x #100 ea 07/09/19 11/19/19 1/3 albuterol sulfate 2.5 mg/0.5 mL 5 mg IH Q6H PRN #30 each 07/29/19 11/19/19 solution for nebulization mupirocin 2 % topical ointment 1 applic TP TID PRN #22 gm 08/13/19 11/19/19 clotrimazole 1 % topical cream 1 applic TP BID #28 gm 08/19/19 11/19/19 insulin glargine 100 unit/mL (3 38 unit SC QHS #15 ml 09/16/19 11/19/19 mL) subcutaneous pen nicotine (polacrilex) 2 mg buccal 2 mg BC Q2H PRN #72 each 10/21/19 11/19/19 lozenge paroxetine HCl 40 mg tablet 40 mg PO DAILY #30 tab 10/21/19 11/19/19 psyllium husk 3.4 gram/5.4 gram 1 tbs PO .3-5x/week gm 10/22/19 11/19/19 oral powder atorvastatin 20 mg tablet 20 mg PO DAILY #90 tab 10/27/19 11/19/19 lorazepam 1 mg tablet 1 mg PO BID PRN #25 tab MDD 2mg 11/10/19 11/19/19 omeprazole magnesium 20 mg 20 mg PO DAILY #30 cap 11/10/19 11/19/19 capsule,delayed release ondansetron HCl [Zofran] 4 mg PO Q8H #12 tab 11/19/19 Previous Rx's Medication Instructions Recorded insulin aspart U-100 100 unit/mL 5 unit SUBCUT TID #2 box 06/14/18 (3 mL) subcutaneous pen blood-glucose meter [FreeStyle #1 each 09/02/18 Lite Meter] lancets [Lancets, Super Thin] #50 each 10/26/18 blood sugar diagnostic #400 strip 02/16/19 lancets 28 gauge #100 each 04/04/19 polyethylene glycol 3350 17 gram 17 gm PO DAILY PRN #30 each 04/04/19 oral powder packet docusate sodium [Colace] 100 mg PO BID #60 cap 04/23/19 pen needle, diabetic 31 gauge x #100 ea 07/09/19 1/ albuterol sulfate 2.5 mg/0.5 mL 5 mg IH Q6H PRN #30 each 07/29/19 solution for nebulization mupirocin 2 % topical ointment 1 applic TP TID PRN #22 gm 08/13/19 clotrimazole 1 % topical cream 1 applic TP BID #28 gm 08/19/19 insulin glargine 100 unit/mL (3 38 unit SC QHS #15 ml 09/16/19 mL) subcutaneous pen nicotine (polacrilex) 2 mg buccal 2 mg BC Q2H PRN #72 each 10/21/19 lozenge paroxetine HCl 40 mg tablet 40 mg PO DAILY #30 tab 10/21/19 atorvastatin 20 mg tablet 20 mg PO DAILY #90 tab 10/27/19 lorazepam 1 mg tablet 1 mg PO BID PRN #25 tab MDD 2mg 11/10/19 omeprazole magnesium 20 mg 20 mg PO DAILY #30 cap 11/10/19 capsule,delayed release ondansetron HCl [Zofran] 4 mg PO Q8H #12 tab 11/19/19 Allergies Allergy/AdvReac Type Severity Reaction Status Date / Time venom-honey bee Allergy Intermediate Unverified 10/21/19 09:54 [bee venom (honey bee)] Sulfa (Sulfonamide Allergy Rash & Unverified 10/21/19 09:54 Antibiotics) Shortness of Breath hydroxyzine HCl AdvReac Intermediate nausea/vomiting, Unverified 10/21/19 09:54 [From Vistaril] palpitations General Stated Complaint: Nausea/Vomit/Diar LAURIE: 3 Review of Systems All systems reviewed & are unremarkable except as noted in HPI and below PFSH Social History Smoking/Tobacco Use Status: Current every day Tobacco Type: cigarettes Alcohol Intake: current Alcohol Intake frequency: 3 or more drinks per day Drug use: Current Sobriety Substance use type: does not use Details: drank twisted tea last markus Do you feel safe at home: Yes Do you feel safe in your relationship?: Yes Additional Social history: Ms. Higginbotham has a significant other in the form of a boyfriend. Her only child, a son, reportedly over the last 1 1/2 years. Continued tobacco use. 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 Intermitted EtOH use. Exam Narrative Exam Narrative: 1.Const: Well-nourished, Well-developed, appearing stated age 2.Eyes: PERRL, no conjunctival injection, and symmetrical lids. 3.ENT: Atraumatic external nose and ears. Moist MM. Neck: Symmetric, trachea midline, No thyromegaly. Patient demonstrates good movement of cervical neck. There is no nuchal rigidity, no nuchal tenderness. Patient is able to flex the neck without any difficulty or significant pain. Negative Kernig's and Brudzinski sign. 4.CVS: +S1/S2, No murmurs or gallops. Peripheral pulses 2+ and equal in all extremities. Brisk capillary refill in all extremities. 5.RESP: Unlabored respiratory effort. Clear to auscultation bilaterally. No wheezes rales or rhonchi 6.GI: Soft, Nontender/Nondistended, No hepatosplenomegaly. No guarding or rebound. 7.MSK: Normocephalic/Atraumatic, Extremities w/o deformity or ttp No cyanosis or clubbing, Normal movement of all extremities 8.Skin: Warm, Dry. No rashes or lesions. 9.Neuro: Sensation grossly intact, no focal neurologic deficits. CN 2-12 tested and intact, patient is able to hold bilateral arms up for 5 seconds and there is no pronator drift, patient also holds legs up for 10 seconds bilaterally without any drop, sensation intact to light touch in hands and feet bilaterally. Cerebellar exam normal Visual blackburn intact peripherally. Normal speech pattern and verbal understanding. 10.Psych: (AAO) x3. Appropriate mood and affect Course Vital Signs Vital signs: Vital Signs Temperature 36.2 C L 11/19/19 13:05 Pulse 61 11/19/19 13:05 Respiratory Rate 18 11/19/19 13:05 Blood Pressure 163/92 H 11/19/19 13:05 Pulse Oximetry 99 11/19/19 13:05 Temperature 36.2 C L 11/19/19 13:05 Temperature Source Skin 11/19/19 13:05 Pulse 61 11/19/19 13:05 Respiratory Rate 18 11/19/19 13:05 Respiratory Effort Non-Labored 11/19/19 13:05 Blood Pressure 163/92 H 11/19/19 13:05 Blood Pressure Position Supine 11/19/19 13:05 Pulse Oximetry 99 11/19/19 13:05 Oxygen Delivery Method Room Air 11/19/19 13:05 Oxygen Flow Rate 0 11/19/19 13:05 Pain Level 8 11/19/19 13:05 Lab/Test Results Lab/Test Results: 11/19/19 13:17 Nose Influenza Types A,B Antigen - Pending Laboratory Tests Range/Units 11/19/19 13:10 WBC (4.4-10.8) k/cumm 4.36 L RBC (4.00-5.20) m/cumm 5.65 H Hgb (12.0-15.5) g/dL 14.8 Hct (36.0-46.0) % 44.2 MCV (80-95) fL 78.2 L MCH (27.0-33.0) pg 26.2 L MCHC (32.0-36.0) g/dL 33.5 RDW (11.7-14.6) % 12.9 Plt Count (130-400) x1000/uL 305 MPV (8.0-11.0) fL 8.9 Immature Gran % % 0.0 Neutrophils % 73.9 Lymphocytes % 22.9 Monocytes % 3.0 Eosinophils % 0.2 Basophils % 0.0 Absolute Neutrophils (1.2-6.7) k/cumm 3.22 Absolute Lymphocytes (1.2-3.4) k/cumm 1.00 L Absolute Monocytes (0.11-0.7) k/cumm 0.13 Absolute Eosinophils (0.0-0.7) k/cumm 0.01 Absolute Basophils (0.0-0.2) k/cumm 0.00
--- NOTE | 2019-11-19 13:45 | DI.CT_ITS ---
EXAM: CT ABDOMEN AND PELVIS W CLINICAL HISTORY: VOMITING, PREVIOUS SURGERIES, RIGHT-SIDED ABD PAIN TECHNIQUE: After IV and without oral contrast. COMPARISON: CT ABDOMEN PELVIS W from 04/23/2019 FINDINGS: Heart size is normal. No vascular calcifications or aortic aneurysm is seen. Visualized portions of t he lungs show dependent changes. The liver, gallbladder, spleen, adrenals and kidneys are unremarkabl e. There is pancreatic atrophy and stable dilatation of the common bile duct. No common duct stone or pancreatic mass is seen. There is no abnormal gastric, small or large bowel distension. There is a m oderate to increased quantity of stool seen throughout the colon. The uterus, ovaries and urinary roxie dder are unremarkable. There is a fatty containing hernia seen just above the umbilicus, which appear s unchanged. No significant bony abnormalities are seen. IMPRESSION: Stable appearance of fatty containing hernia above the umbilicus. No acute abnormalities are seen in the abdomen or pelvis..
[2019-11-19 13:50] LABS: ALT 19 U/L (14-59); AST 17 U/L (15-37); Albumin 3.8 g/dL (3.4-5.0); Alkaline Phosphatase 89 U/L (46-116); BUN 15 mg/dL (7-18); Bilirubin, Total 0.7 mg/dL (0.2-1.0); CREATININE 0.88 mg/dL (0.55-1.02); Calcium 9.3 mg/dL (8.5-10.1); Chloride 98 mmol/L (98-107); Glucose 222 mg/dL (74-106); Lipase 42 U/L (73-393); Potassium 3.4 mmol/L (3.5-5.1); Sodium 137 mmol/L (136-145); Total Protein 7.7 g/dL (6.4-8.2)
[2019-11-19 14:39] VITALS: BP 155/81; PULSE 58; RESP 16; TEMP 36.3; O2SAT 97
[2019-11-19] MEDS: Omnipaque 350 MG/ML 100 ML BTL IV (14:43)
[2019-11-19] MEDS: Normal Saline - Diluent 50 ML VIAL IV (14:44)
[2019-11-19] MEDS: Ketorolac 30 MG/ML VIAL IVP (15:30)
[2019-11-19 16:05] VITALS: PULSE 82; RESP 15; TEMP 36; O2SAT 98
== END 2019-11-19 16:02 | disposition home or self-care (01) ==
PROVIDERS: Emergency Provider Student in an Organized Health Care Education/Training Program; PCP Family Medicine
DX: R51 Headache (principal); K52.9 Noninfective gastroenteritis and colitis, unspecified; E11.9 Type 2 diabetes mellitus without complications; Z79.4 Long term (current) use of insulin; J44.9 Chronic obstructive pulmonary disease, unspecified; F17.210 Nicotine dependence, cigarettes, uncomplicated
CPT/HCPCS: 36415; 70496; 70498; 80053; 83690; 87449; 93005; 96361; 96374; 96375; 99285; 74177; 85025; 93010; J0131; J0780; J1200; J1885; J2060; J2930; J3490

== ENCOUNTER 2020-08-06 12:57 | Outpatient (REF) | payer MEDICAID, SELFPAY ==
[2020-08-06 15:04] LABS: Anion Gap 6.3 mmol/L (3-11); BUN 12 mg/dL (7-18); CO2 32.7 mmol/L (21.0-32.0); CREATININE 1.05 mg/dL (0.55-1.02); Calcium 8.8 mg/dL (8.5-10.1); Calculated LDL 163 mg/dL (<100); Chloride 101 mmol/L (98-107); Cholesterol 271 mg/dL (<200); Estimated GFR 55.48 (mL/min/1.73m2); Glucose 129 mg/dL (74-106); HDL Cholesterol 52 mg/dL (40-60); Magnesium 1.9 mg/dL (1.8-2.4); Potassium 4.3 mmol/L (3.5-5.1); Sodium 140 mmol/L (136-145); Triglyceride 282 mg/dL (<150)
[2020-08-06 15:12] LABS: Hemoglobin A1C 9.5 % (<5.7)
[2020-08-06 17:24] LABS: COMMENT (LAB VIEW ONLY) 110.05 mg/dL
== END 2020-08-06 13:17 ==
LOC: LBN 12:57
PROVIDERS: PCP Family Medicine; Visit Provider Family Medicine
DX: E11.9 Type 2 diabetes mellitus without complications (principal); E83.42 Hypomagnesemia
CPT/HCPCS: 80048; 80061; 82043; 82570; 83036; 83735

== ENCOUNTER 2020-11-15 16:09 | Emergency (ER) | payer MEDICAID, SELFPAY ==
--- NOTE | 2020-11-15 16:15 | DI.RAD_ITS ---
EXAM: XR KNEE RT 3V AP,LAT,SHELBY CLINICAL HISTORY: generalized knee pain, hyperflexed. TECHNIQUE: 2D digital imaging was performed. COMPARISON: No exams were available for comparison FINDINGS: No evidence of a acute fracture although there does appear to be a slight increased amount of joint f luid. No obvious degenerative changes nor osseous lesions. Bone density is normal. IMPRESSION: DATA REPOSITORY: RADIATION DOSE DELIVERED:
[2020-11-15 16:16] VITALS: BP 162/102; PULSE 79; RESP 20; TEMP 36.7; O2SAT 99
[2020-11-15] MEDS: Acetaminophen 500 MG TAB 1000 MG PO (16:34)
--- NOTE | 2020-11-15 16:38 | W.ED.GENAD ---
Discharge Plan Disposition Patient Disposition: HOME Condition: Good Discharge Details Clinical Impression: Acute pain of right knee Primary Care Provider: Marni Doan ED Provider: Luis A Owusu Home Meds and New Rx's Prescriptions: Continued polyethylene glycol 3350 [Miralax] 17 gram powder in packet 17 g PO DAILY PRN (Reason: constipation) Qty: 30 RF: 1 atorvastatin 20 mg tablet 20 mg PO DAILY Qty: 90 RF: 4 docusate sodium [Colace] 100 mg capsule 100 mg PO BID Qty: 60 RF: 0 insulin aspart U-100 [Novolog Flexpen U-100 Insulin] 100 unit/mL (3 mL) insulin pen 5 unit subcut TID Qty: 5 RF: 4 mupirocin 2 % ointment 1 applic TP TID PRN (Reason: skin infection) Qty: 22 RF: 1 miconazole nitrate 2 % cream 1 applic TP BID PRN (Reason: vaginitis) Qty: 28 RF: 2 clotrimazole 1 % cream 1 applic TP BID Qty: 28 RF: 2 senna 8.6 mg capsule 8.6 mg PO BID PRN (Reason: constipation) Qty: 60 RF: 2 Metamucil 3.4 gram/5.4 gram powder 1 tbs PO .3-5x/week RF: 0 epinephrine [EpiPen 2-Tejinder] 0.3 MG/0.3 ML auto-injector 0.3 mg IM ONCE Qty: 1 RF: 1 (DME) blood-glucose meter [FreeStyle Lite Meter] Kit See Dose Instructions .ROUTE .MEDSUPPLY Qty: 1 RF: 0 albuterol sulfate 2.5 mg/0.5 mL solution for nebulization 5 mg IH Q6H PRN (Reason: shortness of breath or wheezing) Qty: 30 RF: 2 (DME) lancets [FreeStyle Lancets] 28 gauge misc 1 ea Miscellaneous QID Qty: 400 RF: 4 insulin glargine 100 unit/mL (3 mL) insulin pen 40 unit SC QHS Qty: 15 RF: 4 albuterol sulfate 90 mcg/actuation HFA aerosol inhaler 2 puff IH QID PRN (Reason: shortness of breath or wheezing) Qty: 3 RF: 4 (DME) pen needle, diabetic 31 gauge x 1/3 needle 1 ea Miscellaneous QID Qty: 100 RF: 6 (DME) Blood Glucose Test Strip 1 ea Miscellaneous qid and Qty: 400 RF: 4 omeprazole magnesium [Acid Cryogenics Engineer (omeprazole)] 20 mg capsule,delayed release(DR/EC) 20 mg PO BID Qty: 90 RF: 3 ondansetron HCl 4 mg tablet 4 mg PO Q8H PRN (Reason: nausea and vomiting) Qty: 9 RF: 0 lorazepam 1 mg tablet 1 mg PO BID PRN (Reason: anxiety) Qty: 25 RF: 0 methadone 10 mg/5 mL Solution 20 mg PO DAILY RF: 0 Discharge Instructions Instructions: Knee Pain (ED) Additional Instructions: At this time the x-ray shows no evidence of fracture. I suspect he has a notable ligamentous injury including the ACL. Please follow-up closely with orthopedics. Take Tylenol and Motrin as needed for pain. Please use the hinged knee brace and the crutches to help in the meantime. Weight-bear only as tolerable. If you notice any worsening of your symptoms, or any new symptoms such as vomiting, diarrhea, fever, chills, shortness of breath, chest pain, numbness, weakness, or fainting , please return immediately to the emergency department for reevaluation. Please follow up with your primary care provider as soon as possible for reassessment and reevaluation. As always, it was a pleasure participating in your medical care today. Referrals: Marni Doan MD [Primary Care Provider] - Medical Decision Making 50-year-old female presents today for right knee pain. Patient states that she was walking down her steps when her foot got stuck in a small hole in the step causing her to fall and hyperflexed her knee. She was in the position for quite a bit, and eventually was righted with the help of a friend. This occurred last evening. She still has continued pain, notable difficulty with walking and applying pressure. She denies hearing any loud pop, but states that everything happened very quickly. She denies any other numbness or tingling. Pain seems to be localized around the knee itself. No other complaints at this time. Exam demonstrates generalized tenderness and mild effusion throughout the right knee. No focal bony tenderness though. No focal tenderness over the tibial plateau. He does have notable pain with valgus stressing, positive Asaf's test, and positive anterior drawer test. Suspect ACL and ligamentous/meniscal injury. Will get x-ray to rule out fracture. Suspect that the patient will need further orthopedic evaluation for ligamentous injury, will give me splint, and crutches with orthopedic follow-up. 5:08 PM X-ray results are negative for acute fracture. I still suspect ACL injury and potentially meniscal injury as well. Will give crutches and hinged knee brace for home use. Will place orthopedic referral. Will give Toradol prior to discharge. Discussed red flags which return. Currently no evidence of clinical tibial plateau fracture, compartment syndrome, or neurovascular injury. I have extensively reviewed the treatment plan and discharge instructions with the patient. I have addressed all patient concerns at this time. The patient was made aware of what symptoms to monitor for that would warrant a return to the emergency department. Discussed the plan with the patient, they demonstrate verbal understanding and agreement with our assessment and plan at this time. The documentation in this chart was dictated using [employer] dictation software. Please excuse any dictation errors. FINDINGS: Bones/joints: Mild patellofemoral marginal osteophyte formation. Soft tissues: Normal. IMPRESSION: No acute findings. Mild DJD. Thank you for allowing us to participate in the care of your patient. Dictated and Authenticated by: Alfredo Landaverde MD 11/15/2020 4:54 PM Eastern Time ([place] & [place]) HPI General Date/Time Provider Initiated Documentation: 11/15/20 16:10. HPI Narrative: 50-year-old female presents today for right knee pain. Patient states that she was walking down her steps when her foot got stuck in a small hole in the step causing her to fall and hyperflexed her knee. She was in the position for quite a bit, and eventually was righted with the help of a friend. This occurred last evening. She still has continued pain, notable difficulty with walking and applying pressure. She denies hearing any loud pop, but states that everything happened very quickly. She denies any other numbness or tingling. Pain seems to be localized around the knee itself. No other complaints at this time. Related Data Home Medications Medication Instructions Recorded Confirmed epinephrine [EpiPen 2-Tejinder] 0.3 mg IM ONCE #1 pen 04/01/13 11/15/20 psyllium husk 3.4 gram/5.4 gram 1 tbs PO .3-5x/week gm 10/22/19 11/15/20 oral powder blood-glucose meter #1 each 12/09/19 09/20/20 albuterol sulfate 2.5 mg/0.5 mL 5 mg IH Q6H PRN #30 each 02/13/20 11/15/20 solution for nebulization lancets 28 gauge #400 each 06/24/20 09/20/20 polyethylene glycol 3350 17 gram 17 g PO DAILY PRN #30 ea 08/06/20 11/15/20 oral powder packet insulin glargine 100 unit/mL (3 40 unit SC QHS #15 ml 08/31/20 11/15/20 mL) subcutaneous pen albuterol sulfate 90 mcg/actuation 2 puff IH QID PRN #3 ea 09/08/20 11/15/20 aerosol inhaler pen needle, diabetic 31 gauge x #100 ea 09/08/2009/26 blood sugar diagnostic #400 strip 09/09/20 09/20/20 omeprazole magnesium 20 mg 20 mg PO BID #90 cap 09/13/20 11/15/20 capsule,delayed release ondansetron HCl 4 mg tablet 4 mg PO Q8H PRN #9 tab 09/16/20 11/15/20 atorvastatin 20 mg tablet 20 mg PO DAILY #90 tab 09/20/20 11/15/20 clotrimazole 1 % topical cream 1 applic TP BID #28 gm 09/20/20 11/15/20 docusate sodium 100 mg capsule 100 mg PO BID #60 cap 09/20/20 11/15/20 insulin aspart U-100 100 unit/mL 5 unit SUBCUT TID #5 syrg 09/20/20 11/15/20 (3 mL) subcutaneous pen miconazole nitrate 2 % topical 1 applic TP BID PRN #28 gm 09/20/20 11/15/20 cream mupirocin 2 % topical ointment 1 applic TP TID PRN #22 gm 09/20/20 11/15/20 sennosides 8.6 mg capsule 8.6 mg PO BID PRN #60 cap 09/20/20 11/15/20 lorazepam 1 mg tablet 1 mg PO BID PRN #25 tab 11/01/20 11/15/20 methadone 20 mg PO DAILY 11/15/20 11/15/20 Previous Rx's Medication Instructions Recorded blood-glucose meter #1 each 12/09/19 albuterol sulfate 2.5 mg/0.5 mL 5 mg IH Q6H PRN #30 each 02/13/20 solution for nebulization lancets 28 gauge #400 each 06/24/20 polyethylene glycol 3350 17 gram 17 g PO DAILY PRN #30 ea 08/06/20 oral powder packet insulin glargine 100 unit/mL (3 40 unit SC QHS #15 ml 08/31/20 mL) subcutaneous pen albuterol sulfate 90 mcg/actuation 2 puff IH QID PRN #3 ea 09/08/20 aerosol inhaler pen needle, diabetic 31 gauge x #100 ea 09/08/2009/26 blood sugar diagnostic #400 strip 09/09/20 omeprazole magnesium 20 mg 20 mg PO BID #90 cap 09/13/20 capsule,delayed release ondansetron HCl 4 mg tablet 4 mg PO Q8H PRN #9 tab 09/16/20 atorvastatin 20 mg tablet 20 mg PO DAILY #90 tab 09/20/20 clotrimazole 1 % topical cream 1 applic TP BID #28 gm 09/20/20 docusate sodium 100 mg capsule 100 mg PO BID #60 cap 09/20/20 insulin aspart U-100 100 unit/mL 5 unit SUBCUT TID #5 syrg 09/20/20 (3 mL) subcutaneous pen miconazole nitrate 2 % topical 1 applic TP BID PRN #28 gm 09/20/20 cream mupirocin 2 % topical ointment 1 applic TP TID PRN #22 gm 09/20/20 sennosides 8.6 mg capsule 8.6 mg PO BID PRN #60 cap 09/20/20 lorazepam 1 mg tablet 1 mg PO BID PRN #25 tab 11/01/20 Allergies Allergy/AdvReac Type Severity Reaction Status Date / Time venom-honey bee Allergy Intermediate Unverified 11/15/20 16:20 [bee venom (honey bee)] Sulfa (Sulfonamide Allergy Rash & Unverified 11/15/20 16:20 Antibiotics) Shortness of Breath hydroxyzine HCl AdvReac Intermediate nausea/vomiting, Unverified 11/15/20 16:20 [From Vistaril] palpitations General Stated Complaint: Orthopedic LAURIE: 4 Review of Systems All systems reviewed & are unremarkable except as noted in HPI and below PFSH Medical History Abdominal pain Alcohol abuse Alcohol dependence in remission Anxiety Cellulitis of left hand (02/01/15) a. secondary to cat bite vs. IVDU b. has 13 cats at home c. denies ongoing IVDU at this time Closed fracture of distal end of right fibula (10/04/16) Constipation COPD (chronic obstructive pulmonary disease) Current smoker (02/01/15) x 29 years Depressive disorder Diabetes mellitus, type II a. chronic noncompliance b. multiple episodes of admission for [facility] c. ? 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 Hyperlipemia Hyperlipidemia statin started Non compliance with medical treatment (02/01/15) Panic disorder PTSD (post-traumatic stress disorder) Schizophrenia Type 2 diabetes mellitus with hypoglycemic insulin reaction Umbilical hernia, incarcerated Ventral hernia without obstruction or gangrene Social History Smoking/Tobacco Use Status: Current every day Tobacco Type: cigarettes Smoking risk assessment performed?: Yes Alcohol Intake: current Alcohol Intake frequency: 0-2 drinks per day Drug use: Current Sobriety Substance use type: does not use Details: drank twisted tea last markus Do you feel safe at home: Yes Do you feel safe in your relationship?: Yes Additional Social history: Ms. Higginbotham has a significant other in the form of a boyfriend. Her only child, a son, reportedly over the last 1 1/2 years. Continued tobacco use. 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 Intermitted EtOH use. Exam Narrative Exam Narrative: 1.Const: Well-nourished, Well-developed, appearing stated age 2.Eyes: PERRL, no conjunctival injection, and symmetrical lids. 3.ENT: Atraumatic external nose and ears. Moist MM. Neck: Symmetric, trachea midline, No thyromegaly. 4.CVS: +S1/S2, No murmurs or gallops. Peripheral pulses 2+ and equal in all extremities. Brisk capillary refill in all extremities. 5.RESP: Unlabored respiratory effort. Clear to auscultation bilaterally. No wheezes rales or rhonchi 6.GI: Soft, Nontender/Nondistended, No hepatosplenomegaly. No guarding or rebound. 7.MSK: Right knee demonstrates mild effusion throughout, mild generalized tenderness throughout including over the medial aspect patellar aspect, and the lateral aspect. Difficult to elicit any focality. Mild pain in general with varus stressing, and notable medial pain with valgus stressing. Notable pain with Asaf's test. Patient does demonstrate laxity with anterior drawer test. Seems to be stable with posterior drawer test though. 8.Skin: Warm, Dry. No rashes or lesions. 9.Neuro: manager content II-XII grossly intact. Sensation grossly intact, no focal neurologic deficits. 10.Psych: (AAO) x3. Appropriate mood and affect Course Vital Signs Vital signs: Vital Signs Temperature 36.7 C 11/15/20 16:16 Pulse 79 11/15/20 16:16 Respiratory Rate 20 11/15/20 16:16 Blood Pressure 162/102 H 11/15/20 16:16 Pulse Oximetry 99 11/15/20 16:16 Temperature 36.7 C 11/15/20 16:16 Temperature Source Skin 11/15/20 16:16 Pulse 79 11/15/20 16:16 Respiratory Rate 20 11/15/20 16:16 Respiratory Effort Non-Labored 11/15/20 16:23 Blood Pressure 162/102 H 11/15/20 16:16 Pulse Oximetry 99 11/15/20 16:16 Oxygen Delivery Method Room Air 11/15/20 16:16 Oxygen Flow Rate 0 11/15/20 16:16 Pain Level 8 11/15/20 16:34
--- NOTE | 2020-11-15 16:55 | DI.VRAD_ITS ---
PROCEDURE INFORMATION: Exam: XR Right Knee Exam date and time: 11/15/2020 4:22 PM Age: 50 years old Clinical indication: Injury or trauma; Fall; Swelling (edema); Knee; Right TECHNIQUE: Imaging protocol: XR Right knee. Views: 3 views. COMPARISON: CR RIGHT TIB/FIB 08/27/2016 10:51 AM FINDINGS: Bones/joints: Mild patellofemoral marginal osteophyte formation. Soft tissues: Normal. IMPRESSION: No acute findings. Mild DJD. Dictated and Authenticated by: Alfredo Landaverde MD. Ordering:KENDRA Gunn MD
[2020-11-15] MEDS: Lidocaine 5% Patch 1 PATCH TP (17:03)
[2020-11-15] MEDS: Ketorolac 30 MG/ML VIAL IM (17:13)
== END 2020-11-15 17:29 | disposition home or self-care (01) ==
PROVIDERS: Emergency Provider Student in an Organized Health Care Education/Training Program; PCP Family Medicine
DX: M25.561 Pain in right knee (principal); W10.8XXA Fall (on) (from) other stairs and steps, initial encounter
CPT/HCPCS: 73562; 96372; 99284; 99283; J1885

== ENCOUNTER 2020-12-03 03:46 | Outpatient (CLI) | payer MEDICAID, SELFPAY ==
--- NOTE | 2020-12-03 07:00 | DI.MRI_ITS ---
EXAM: MR LOWER JOINT RT WO CLINICAL HISTORY: INTERNAL DERANGEMENT, RT KNEE PAIN,M23.91,M25.561. TECHNIQUE: Multiplanar multisequence MRI was performed. COMPARISON: CR,XR XR KNEE RT 3V AP,LAT,SHELBY from 11/15/2020 CR,XR XR KNEE RT 3V AP,LAT,SHELBY from 11/15/2020 FINDINGS: There is edema in the anterior and medial subcutaneous fat. There is a small joint effusion. There is edema in the lateral tibial plateau consistent with a contusion. At the posterolateral corn er, there is a low signal area which extends to the articular surface and could represent a small non depressed tibial plateau fracture. There is edema around the lateral collateral ligament distally. There is also edema at the distal sotelo mstring tendon. Both are suspicious for partial tears. The IT band appears intact. There is some e julisa around the medial collateral ligaments but no visible focal tear. The anterior and posterior cr uciate ligaments appear intact. The extensor mechanism is intact. enthesophytes are seen at the pa tella and tibial tubercle. Medial meniscus shows mild degenerative changes. The lateral meniscus shows an inferior surfacing tear of the posterior horn and amorphous signal in t he body. There is spurring from the femoral condyles and tibial plateaus. There is irregularity of the cartilage over the patella which does not appear to extend down to bone . IMPRESSION: Bone contusion the posterior aspect of the lateral tibial plateau with a small discrete fracture line at the posterolateral corner. Partial tears of the lateral collateral ligament and hamstring tendons. Inferior surfacing tear of the posterior horn of the medial meniscus. DATA REPOSITORY:
== END 2020-12-03 04:06 ==
PROVIDERS: PCP Family Medicine; Visit Provider Student in an Organized Health Care Education/Training Program
DX: S82.141A Displaced bicondylar fracture of right tibia, initial encounter for closed fracture (principal); S83.421A Sprain of lateral collateral ligament of right knee, initial encounter; S76.311A Strain of muscle, fascia and tendon of the posterior muscle group at thigh level, right thigh, initial encounter; S83.241A Other tear of medial meniscus, current injury, right knee, initial encounter
CPT/HCPCS: 73721

== ENCOUNTER 2020-12-13 15:44 | Outpatient (CLI) | payer MEDICAID, SELFPAY ==
--- NOTE | 2020-12-13 14:30 | DI.RAD_ITS ---
EXAM: XR WRIST RT COMPLETE CLINICAL HISTORY: s/p fall. TECHNIQUE: 2D digital imaging was performed. COMPARISON: No exams were available for comparison FINDINGS: There is no evidence of acute fracture nor carpal dislocation. No significant ulnar variance. There is a corticated density seen off the dorsal carpal row bones measuring 7 by 3 millimeters, not havin g the appearance of an acute fracture fragment. Scapholunate distance is upper normal. Bone density normal. No osseous lesions. Sign rib IMPRESSION: DATA REPOSITORY: RADIATION DOSE DELIVERED:
== END 2020-12-13 15:45 | disposition home or self-care (01) ==
LOC: DIORS 15:44
PROVIDERS: PCP Family Medicine; Referring Provider Family Medicine; Visit Provider Physician Assistant Surgical
DX: M25.531 Pain in right wrist (principal)
CPT/HCPCS: 73110

== ENCOUNTER 2020-12-29 12:05 | Emergency (ER) | payer MEDICAID, SELFPAY ==
[2020-12-29 12:13] VITALS: BP 178/107; PULSE 95; RESP 18; TEMP 36.7; O2SAT 98
--- NOTE | 2020-12-29 12:24 | W.ED.GENAD ---
Discharge Plan Disposition Patient Disposition: HOME Condition: Stable Discharge Details Clinical Impression: Abscess of finger Primary Care Provider: Marni Doan ED Provider: Mayi Todd Home Meds and New Rx's Prescriptions: New clindamycin HCl 150 mg capsule 450 mg PO TID 7 Days Qty: 63 RF: 0 Continued polyethylene glycol 3350 [Miralax] 17 gram powder in packet 17 g PO DAILY PRN (Reason: constipation) Qty: 30 RF: 1 atorvastatin 20 mg tablet 20 mg PO DAILY Qty: 90 RF: 4 docusate sodium [Colace] 100 mg capsule 100 mg PO BID Qty: 60 RF: 0 insulin aspart U-100 [Novolog Flexpen U-100 Insulin] 100 unit/mL (3 mL) insulin pen 5 unit subcut TID Qty: 5 RF: 4 mupirocin 2 % ointment 1 applic TP TID PRN (Reason: skin infection) Qty: 22 RF: 1 miconazole nitrate 2 % cream 1 applic TP BID PRN (Reason: vaginitis) Qty: 28 RF: 2 clotrimazole 1 % cream 1 applic TP BID Qty: 28 RF: 2 senna 8.6 mg capsule 8.6 mg PO BID PRN (Reason: constipation) Qty: 60 RF: 2 tramadol 50 mg tablet 50 mg PO Q8H PRN (Reason: pain) Qty: 30 RF: 0 Metamucil 3.4 gram/5.4 gram powder 1 tbs PO .3-5x/week RF: 0 alprazolam 0.5 mg tablet 0.5 mg PO ONCE PRN (Reason: Claustrophobia) Qty: 2 RF: 0 epinephrine [EpiPen 2-Tejinder] 0.3 MG/0.3 ML auto-injector 0.3 mg IM ONCE Qty: 1 RF: 1 (DME) blood-glucose meter [FreeStyle Lite Meter] Kit See Dose Instructions .ROUTE .MEDSUPPLY Qty: 1 RF: 0 albuterol sulfate 2.5 mg/0.5 mL solution for nebulization 5 mg IH Q6H PRN (Reason: shortness of breath or wheezing) Qty: 30 RF: 2 albuterol sulfate 90 mcg/actuation HFA aerosol inhaler 2 puff IH QID PRN (Reason: shortness of breath or wheezing) Qty: 3 RF: 4 omeprazole magnesium [Acid [employer] (omeprazole)] 20 mg capsule,delayed release(DR/EC) 20 mg PO BID Qty: 90 RF: 3 ondansetron HCl 4 mg tablet 4 mg PO Q8H PRN (Reason: nausea and vomiting) Qty: 9 RF: 0 lorazepam 1 mg tablet 1 mg PO BID PRN (Reason: anxiety) Qty: 25 RF: 0 meloxicam 15 mg tablet 15 mg PO DAILY Qty: 30 RF: 1 (DME) lancets [FreeStyle Lancets] 28 gauge misc 1 ea Miscellaneous QID Qty: 400 RF: 4 insulin glargine 100 unit/mL (3 mL) insulin pen 40 unit SC QHS Qty: 15 RF: 4 (DME) Blood Glucose Test Strip 1 ea Miscellaneous qid and Qty: 400 RF: 4 (DME) pen needle, diabetic 31 gauge x 1/3 needle 1 ea Miscellaneous QID Qty: 100 RF: 6 methadone 10 mg/5 mL Solution 20 mg PO DAILY RF: 0 Discharge Instructions Instructions: Abscess (ED) Additional Instructions: Take the antibiotics until finished. Your prescription has been sent electronically to your pharmacy. Call the pharmacy to make sure your prescription is ready before pickup. Take the prescription as directed. Keep wound clean and dry. Cover wound with bandage if risk of contamination. Otherwise you can keep the wound open to air if resting at home to allow edges to dry and heal. Follow-up with your primary care doctor in 1 week. Return to the emergency department with any worsening or new concerning symptoms such as fever, increased pain, redness or swelling. Discharge Data Discharge Date/Time-TO BE ENTERED AT DEPARTURE: 12/29/20 13:38 Discharge Physician: Mayi Todd Medical Decision Making 50-year-old female presents with left thumb redness pain and swelling for the past month, getting progressively worse. Left thumb appears consistent with cellulitis and small abscess. The area was cleaned with Betadine and punctured with an 18-gauge needle with approximately 2 cc of yellowish pus drainage expressed. Significant relief in pain and edema. Finger was soaked in saline and Betadine. Bacitracin and 2 gauze dressing placed. Patient was given a dose of clindamycin here and prescription sent electronically to her pharmacy. Advised to follow up with the primary care doctor for re-evaluation. Usual and customary return precautions given prior to discharge. Medical Records Medical records reviewed: Yes I reviewed the patient's medical records. HPI General Mode of arrival: ambulatory. Date/Time Provider Initiated Documentation: 12/29/20 12:06. Limitations to Documentation: no limitations. Information obtained by: patient. HPI Narrative: Patient is a 50-year-old female with a history of diabetes, schizophrenia, heroin use in remission for the past 3 years, PTSD, COPD, anxiety, depression, alcohol use who presented to the ED with complaint of left thumb pain, redness and swelling for the past month, getting progressively worse. Related Data Home Medications Medication Instructions Recorded Confirmed epinephrine [EpiPen 2-Tejinder] 0.3 mg IM ONCE #1 pen 04/01/13 12/29/20 psyllium husk 3.4 gram/5.4 gram 1 tbs PO .3-5x/week gm 10/22/19 12/29/20 oral powder blood-glucose meter #1 each 12/09/19 12/29/20 albuterol sulfate 2.5 mg/0.5 mL 5 mg IH Q6H PRN #30 each 02/13/20 12/29/20 solution for nebulization polyethylene glycol 3350 17 gram 17 g PO DAILY PRN #30 ea 08/06/20 12/29/20 oral powder packet albuterol sulfate 90 mcg/actuation 2 puff IH QID PRN #3 ea 09/08/20 12/29/20 aerosol inhaler omeprazole magnesium 20 mg 20 mg PO BID #90 cap 09/13/20 12/29/20 capsule,delayed release ondansetron HCl 4 mg tablet 4 mg PO Q8H PRN #9 tab 09/16/20 12/29/20 atorvastatin 20 mg tablet 20 mg PO DAILY #90 tab 09/20/20 12/29/20 clotrimazole 1 % topical cream 1 applic TP BID #28 gm 09/20/20 12/29/20 docusate sodium 100 mg capsule 100 mg PO BID #60 cap 09/20/20 12/29/20 insulin aspart U-100 100 unit/mL 5 unit SUBCUT TID #5 syrg 09/20/20 12/29/20 (3 mL) subcutaneous pen miconazole nitrate 2 % topical 1 applic TP BID PRN #28 gm 09/20/20 12/29/20 cream mupirocin 2 % topical ointment 1 applic TP TID PRN #22 gm 09/20/20 12/29/20 sennosides 8.6 mg capsule 8.6 mg PO BID PRN #60 cap 09/20/20 12/29/20 methadone 20 mg PO DAILY 11/15/20 12/29/20 lorazepam 1 mg tablet 1 mg PO BID PRN #25 tab 11/22/20 12/29/20 alprazolam 0.5 mg tablet 0.5 mg PO ONCE PRN #2 tab 11/23/20 12/29/20 meloxicam 15 mg tablet 15 mg PO DAILY #30 tab 11/23/20 12/29/20 blood sugar diagnostic #400 strip 12/08/20 12/29/20 insulin glargine 100 unit/mL (3 40 unit SC QHS #15 ml 12/08/20 12/29/20 mL) subcutaneous pen lancets 28 gauge #400 each 12/08/20 12/29/20 pen needle, diabetic 31 gauge x #100 ea 12/08/20 12/29/2009/26 tramadol 50 mg tablet 50 mg PO Q8H PRN #30 tab 12/13/20 12/29/20 clindamycin HCl 450 mg PO TID 7 Days #63 cap 12/29/20 Previous Rx's Medication Instructions Recorded blood-glucose meter #1 each 12/09/19 albuterol sulfate 2.5 mg/0.5 mL 5 mg IH Q6H PRN #30 each 02/13/20 solution for nebulization polyethylene glycol 3350 17 gram 17 g PO DAILY PRN #30 ea 08/06/20 oral powder packet albuterol sulfate 90 mcg/actuation 2 puff IH QID PRN #3 ea 09/08/20 aerosol inhaler omeprazole magnesium 20 mg 20 mg PO BID #90 cap 09/13/20 capsule,delayed release ondansetron HCl 4 mg tablet 4 mg PO Q8H PRN #9 tab 09/16/20 atorvastatin 20 mg tablet 20 mg PO DAILY #90 tab 09/20/20 clotrimazole 1 % topical cream 1 applic TP BID #28 gm 09/20/20 docusate sodium 100 mg capsule 100 mg PO BID #60 cap 09/20/20 insulin aspart U-100 100 unit/mL 5 unit SUBCUT TID #5 syrg 09/20/20 (3 mL) subcutaneous pen miconazole nitrate 2 % topical 1 applic TP BID PRN #28 gm 09/20/20 cream mupirocin 2 % topical ointment 1 applic TP TID PRN #22 gm 09/20/20 sennosides 8.6 mg capsule 8.6 mg PO BID PRN #60 cap 09/20/20 lorazepam 1 mg tablet 1 mg PO BID PRN #25 tab 11/22/20 alprazolam 0.5 mg tablet 0.5 mg PO ONCE PRN #2 tab 11/23/20 meloxicam 15 mg tablet 15 mg PO DAILY #30 tab 11/23/20 blood sugar diagnostic #400 strip 12/08/20 insulin glargine 100 unit/mL (3 40 unit SC QHS #15 ml 12/08/20 mL) subcutaneous pen lancets 28 gauge #400 each 12/08/20 pen needle, diabetic 31 gauge x #100 ea 12/08/2009/26 tramadol 50 mg tablet 50 mg PO Q8H PRN #30 tab 12/13/20 clindamycin HCl 450 mg PO TID 7 Days #63 cap 12/29/20 Allergies Allergy/AdvReac Type Severity Reaction Status Date / Time venom-honey bee Allergy Intermediate Unverified 12/29/20 12:18 [bee venom (honey bee)] Sulfa (Sulfonamide Allergy Rash & Unverified 12/29/20 12:18 Antibiotics) Shortness of Breath hydroxyzine HCl AdvReac Intermediate nausea/vomiting, Unverified 12/29/20 12:18 [From Vistaril] palpitations General Stated Complaint: Cellulitis LAURIE: 3 Review of Systems All systems reviewed & are unremarkable except as noted in HPI and below Constitutional Constitutional: Denies chills and Denies fever(s) [facility] Medical History Abdominal pain Alcohol abuse Alcohol dependence in remission Anxiety Cellulitis of left hand (02/01/15) a. secondary to cat bite vs. IVDU b. has 13 cats at home c. denies ongoing IVDU at this time Closed fracture of distal end of right fibula (10/04/16) Constipation COPD (chronic obstructive pulmonary disease) Current smoker (02/01/15) x 29 years Depressive disorder Diabetes mellitus, type II a. chronic noncompliance b. multiple episodes of admission for [facility] c. ? 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 Hyperlipemia Hyperlipidemia statin started Non compliance with medical treatment (02/01/15) Panic disorder PTSD (post-traumatic stress disorder) Schizophrenia Type 2 diabetes mellitus with hypoglycemic insulin reaction Umbilical hernia, incarcerated Ventral hernia without obstruction or gangrene Social History Smoking/Tobacco Use Status: Current every day Tobacco Type: cigarettes Smoking risk assessment performed?: Yes Alcohol Intake: current Alcohol Intake frequency: 0-2 drinks per day Drug use: Current Sobriety Substance use type: does not use Details: drank twisted tea today Current gender identity: female Do you feel safe at home: Yes Do you feel safe in your relationship?: Yes Additional Social history: Ms. Higginbotham has a significant other in the form of a boyfriend. Her only child, a son, reportedly over the last 1 1/2 years. Continued tobacco use. 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 Intermitted EtOH use. Exam Const General: cooperative, healthy appearing and no acute distress HENMT Head: normal to inspection Mouth: oral mucosae normal Eyes General: appearance normal, both eyes and all related structures Neck Neck: normal visual inspection Resp Effort & Inspection: normal respiratory effort and able to speak in complete sentences Cardio Rate: regular rate Skin General skin exam: no rashes or lesions noted Neuro General: patient alert, patient awake and patient oriented x3 Motor: muscle tone normal throughout Extrem Hand/finger images: 1. Edema, erythema and tenderness to palpation of left thumb finger pad. There is a 4 x 4 millimeter area of fluctuance and white discoloration noted in the center of the erythema. There is no drainage or bleeding noted. No crepitus Psych Appearance: grossly normal Affect: normal affect Course Vital Signs Vital signs: Vital Signs Temperature 98.1 F 12/29/20 12:13 Pulse 95 H 12/29/20 12:13 Respiratory Rate 18 12/29/20 12:13 Blood Pressure 178/107 H 12/29/20 12:13 Pulse Oximetry 98 12/29/20 12:13 Temperature 98.1 F 12/29/20 12:13 Temperature Source Temporal Artery Scan 12/29/20 12:13 Pulse 95 H 12/29/20 12:13 Respiratory Rate 18 12/29/20 12:13 Respiratory Effort Non-Labored 12/29/20 12:19 Blood Pressure 178/107 H 12/29/20 12:13 Blood Pressure Position Sitting 12/29/20 12:13 Pulse Oximetry 98 12/29/20 12:13 Oxygen Delivery Method Room Air 12/29/20 12:13 Oxygen Flow Rate 0 12/29/20 12:13 Pain Level 0 12/29/20 12:13
[2020-12-29] MEDS: Povidone-Iodine Soln. 118 ML BTL (13:00)
[2020-12-29] MEDS: Clindamycin 150 MG CAP 450 MG PO (13:20)
== END 2020-12-29 13:38 | disposition home or self-care (01) ==
PROVIDERS: Emergency Provider Physician Assistant; PCP Family Medicine
DX: L02.512 Cutaneous abscess of left hand; L03.012 Cellulitis of left finger
CPT/HCPCS: 10160

== ENCOUNTER 2021-04-13 13:16 | Emergency (ER) | payer MEDICAID, SELFPAY ==
[2021-04-13 13:18] VITALS: BP 134/89; PULSE 66; TEMP 36.8; O2SAT 100
--- NOTE | 2021-04-13 13:19 | W.ED.GENAD ---
Discharge Plan Disposition Patient Disposition: HOME Condition: Stable Discharge Details Clinical Impression: Otitis externa Primary Care Provider: Marni Doan ED Provider: Jacky Morin Home Meds and New Rx's Prescriptions: New ftojiyyl-zkzxlwban-JN 3.5-10,000-1 mg/mL-unit/mL-% solution 4 drp otic (ear) Q8H 10 Days Qty: 10 RF: 0 Continued polyethylene glycol 3350 [Miralax] 17 gram powder in packet 17 g PO DAILY PRN (Reason: constipation) Qty: 30 RF: 1 atorvastatin 20 mg tablet 20 mg PO DAILY Qty: 90 RF: 4 insulin aspart U-100 [Novolog Flexpen U-100 Insulin] 100 unit/mL (3 mL) insulin pen 5 unit subcut TID Qty: 5 RF: 4 mupirocin 2 % ointment 1 applic TP TID PRN (Reason: skin infection) Qty: 22 RF: 1 miconazole nitrate 2 % cream 1 applic TP BID PRN (Reason: vaginitis) Qty: 28 RF: 2 clotrimazole 1 % cream 1 applic TP BID Qty: 28 RF: 2 lisinopril 10 mg tablet 10 mg PO DAILY Qty: 90 RF: 4 insulin glargine 100 unit/mL (3 mL) insulin pen 40 unit SC QHS Qty: 15 RF: 4 albuterol sulfate 2.5 mg/0.5 mL solution for nebulization 5 mg IH Q6H PRN (Reason: shortness of breath or wheezing) Qty: 30 RF: 2 albuterol sulfate 90 mcg/actuation HFA aerosol inhaler 2 puff IH QID PRN (Reason: shortness of breath or wheezing) Qty: 3 RF: 4 senna 8.6 mg capsule 8.6 mg PO BID PRN (Reason: constipation) Qty: 60 RF: 2 docusate sodium [Colace] 100 mg capsule 100 mg PO BID Qty: 60 RF: 0 tramadol 50 mg tablet 50 mg PO Q8H PRN (Reason: pain) Qty: 30 RF: 0 Metamucil 3.4 gram/5.4 gram powder 1 tbs PO .3-5x/week RF: 0 epinephrine [EpiPen 2-Tejinder] 0.3 MG/0.3 ML auto-injector 0.3 mg IM ONCE Qty: 1 RF: 1 (DME) blood-glucose meter [FreeStyle Lite Meter] Kit See Dose Instructions .ROUTE .MEDSUPPLY Qty: 1 RF: 0 (DME) lancets [FreeStyle Lancets] 28 gauge misc 1 ea Miscellaneous QID Qty: 400 RF: 4 (DME) Blood Glucose Test Strip 1 ea Miscellaneous qid and Qty: 400 RF: 4 (DME) pen needle, diabetic 31 gauge x 1/3 needle 1 ea Miscellaneous QID Qty: 100 RF: 6 omeprazole 40 mg capsule,delayed release(DR/EC) 40 mg PO DAILY Qty: 90 RF: 4 diclofenac potassium 50 mg tablet 50 mg PO TID PRN (Reason: leg pain) Qty: 30 RF: 1 ondansetron HCl 4 mg tablet 4 mg PO Q8H PRN (Reason: nausea and vomiting) Qty: 9 RF: 0 lorazepam 1 mg tablet 1 mg PO BID PRN (Reason: anxiety) Qty: 14 RF: 0 methadone 10 mg/5 mL Solution 20 mg PO DAILY RF: 0 Discharge Instructions Instructions: Otitis Externa (ED) Additional Instructions: Eardrops as directed. High-oza-dxngwxy Tylenol and/or Motrin as directed for discomfort. Please watch for new or worsening symptoms and return to the ER for any concerns. I do recommend reaching out your primary care provider and discussing outpatient evaluation if symptoms persist more than a few Medical Decision Making 50-year-old female presents complaining of left ear sensation of being muffled, increased wax, discomfort for the past few hours. Clinically she appears well, nontoxic. Examination is consistent with mild otitis externa. TM unremarkable. No evidence of fever, trismus, nuchal rigidity. Will initiate antibiotic therapy. Recommend ghlb-btw-ptfzuod Tylenol and/or Motrin. Patient comfortable this plan and has no additional questions or concerns This documentation was generated using [employer] system, please disregard any oddities of phrase or misspellings. Medical Records Medical records reviewed: Yes I reviewed the patient's medical records. HPI General Mode of arrival: ambulatory. Date/Time Provider Initiated Documentation: 04/13/21 13:16. Limitations to Documentation: no limitations. Information obtained by: patient. HPI Narrative: This is a 50-year-old female, past medical history of diabetes, hypertension, COPD, schizophrenia, current smoker, presenting to the ER today reporting a few hour history of her left ear feeling muffled, sound like she is hearing echoes, and noticed that there was a large amount of cerumen coming from her ear. Reports mild discomfort in describe a slight ringing. She denies recent illness or trauma. Denies headache, visual changes, neck pain, sore throat, fever, cough, numbness, tingling, weakness. Patient reports that she put hydrogen peroxide in her ear and is concerned that her ear may be infected. Related Data Home Medications Medication Instructions Recorded Confirmed epinephrine [EpiPen 2-Tejinder] 0.3 mg IM ONCE #1 pen 04/01/13 04/13/21 psyllium husk 3.4 gram/5.4 gram 1 tbs PO .3-5x/week gm 10/22/19 04/13/21 oral powder blood-glucose meter #1 each 12/09/19 04/13/21 polyethylene glycol 3350 17 gram 17 g PO DAILY PRN #30 ea 08/06/20 04/13/21 oral powder packet atorvastatin 20 mg tablet 20 mg PO DAILY #90 tab 09/20/20 04/13/21 clotrimazole 1 % topical cream 1 applic TP BID #28 gm 09/20/20 04/13/21 insulin aspart U-100 100 unit/mL 5 unit SUBCUT TID #5 syrg 09/20/20 04/13/21 (3 mL) subcutaneous pen miconazole nitrate 2 % topical 1 applic TP BID PRN #28 gm 09/20/20 04/13/21 cream mupirocin 2 % topical ointment 1 applic TP TID PRN #22 gm 09/20/20 04/13/21 methadone 20 mg PO DAILY 11/15/20 04/13/21 blood sugar diagnostic #400 strip 12/08/20 04/13/21 lancets 28 gauge #400 each 12/08/20 04/13/21 pen needle, diabetic 31 gauge x #100 ea 12/08/20 04/13/2109/26 albuterol sulfate 2.5 mg/0.5 mL 5 mg IH Q6H PRN #30 each 12/31/20 04/13/21 solution for nebulization albuterol sulfate 90 mcg/actuation 2 puff IH QID PRN #3 ea 12/31/20 04/13/21 aerosol inhaler docusate sodium 100 mg capsule 100 mg PO BID #60 cap 12/31/20 04/13/21 insulin glargine 100 unit/mL (3 40 unit SC QHS #15 ml 12/31/20 04/13/21 mL) subcutaneous pen lisinopril 10 mg tablet 10 mg PO DAILY #90 tab 12/31/20 04/13/21 sennosides 8.6 mg capsule 8.6 mg PO BID PRN #60 cap 12/31/20 04/13/21 tramadol 50 mg tablet 50 mg PO Q8H PRN #30 tab 12/31/20 04/13/21 omeprazole 40 mg capsule,delayed 40 mg PO DAILY #90 cap 01/13/21 04/13/21 release diclofenac potassium 50 mg tablet 50 mg PO TID PRN #30 tab 02/09/21 04/13/21 lorazepam 1 mg tablet 1 mg PO BID PRN #14 tab 04/12/21 04/13/21 ondansetron HCl 4 mg tablet 4 mg PO Q8H PRN #9 tab 04/12/21 04/13/21 avmsjzpt-razwdibdl-IN 4 drp OTIC (EAR) Q8H 10 Days #10 ml 04/13/21 Previous Rx's Medication Instructions Recorded blood-glucose meter #1 each 12/09/19 polyethylene glycol 3350 17 gram 17 g PO DAILY PRN #30 ea 08/06/20 oral powder packet atorvastatin 20 mg tablet 20 mg PO DAILY #90 tab 09/20/20 clotrimazole 1 % topical cream 1 applic TP BID #28 gm 09/20/20 insulin aspart U-100 100 unit/mL 5 unit SUBCUT TID #5 syrg 09/20/20 (3 mL) subcutaneous pen miconazole nitrate 2 % topical 1 applic TP BID PRN #28 gm 09/20/20 cream mupirocin 2 % topical ointment 1 applic TP TID PRN #22 gm 09/20/20 blood sugar diagnostic #400 strip 12/08/20 lancets 28 gauge #400 each 12/08/20 pen needle, diabetic 31 gauge x #100 ea 12/08/20/ albuterol sulfate 2.5 mg/0.5 mL 5 mg IH Q6H PRN #30 each 12/31/20 solution for nebulization albuterol sulfate 90 mcg/actuation 2 puff IH QID PRN #3 ea 12/31/20 aerosol inhaler docusate sodium 100 mg capsule 100 mg PO BID #60 cap 12/31/20 insulin glargine 100 unit/mL (3 40 unit SC QHS #15 ml 12/31/20 mL) subcutaneous pen lisinopril 10 mg tablet 10 mg PO DAILY #90 tab 12/31/20 sennosides 8.6 mg capsule 8.6 mg PO BID PRN #60 cap 12/31/20 tramadol 50 mg tablet 50 mg PO Q8H PRN #30 tab 12/31/20 omeprazole 40 mg capsule,delayed 40 mg PO DAILY #90 cap 01/13/21 release diclofenac potassium 50 mg tablet 50 mg PO TID PRN #30 tab 02/09/21 lorazepam 1 mg tablet 1 mg PO BID PRN #14 tab 04/12/21 ondansetron HCl 4 mg tablet 4 mg PO Q8H PRN #9 tab 04/12/21 frodgjzg-eexyvpcog-UW 4 drp OTIC (EAR) Q8H 10 Days #10 ml 04/13/21 Allergies Allergy/AdvReac Type Severity Reaction Status Date / Time venom-honey bee Allergy Intermediate Verified 04/13/21 13:23 [bee venom (honey bee)] Sulfa (Sulfonamide Allergy Rash & Verified 04/13/21 13:23 Antibiotics) Shortness of Breath hydroxyzine HCl AdvReac Intermediate nausea/vomiting, Verified 04/13/21 13:23 [From Vistaril] palpitations General LAURIE: 3 Review of Systems Constitutional Constitutional: Denies fever(s) and Denies headache(s) Eyes Eyes: Denies change in vision ENT Ears, Nose, Mouth, and Throat: Denies headache(s) and Denies neck pain Cardiovascular Cardiovascular: Denies chest pain and Denies dyspnea Respiratory Respiratory: Denies dyspnea Musculoskeletal Musculoskeletal: Denies neck pain Integumentary/Breasts Skin/Breast: Denies rash Neurologic Neurologic: Denies headache(s) [facility] Medical History Abdominal pain Alcohol abuse Alcohol dependence in remission Anxiety Cellulitis of left hand (02/01/15) a. secondary to cat bite vs. IVDU b. has 13 cats at home c. denies ongoing IVDU at this time Closed fracture of distal end of right fibula (10/04/16) Constipation COPD (chronic obstructive pulmonary disease) Current smoker (02/01/15) x 29 years Depressive disorder Diabetes mellitus, type II a. chronic noncompliance b. multiple episodes of admission for [facility] c. ? 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 Hyperlipemia Hyperlipidemia statin started Non compliance with medical treatment (02/01/15) Panic disorder PTSD (post-traumatic stress disorder) Schizophrenia Type 2 diabetes mellitus with hypoglycemic insulin reaction Umbilical hernia, incarcerated Ventral hernia without obstruction or gangrene Social History Smoking/Tobacco Use Status: Current every day Tobacco Type: cigarettes Smoking risk assessment performed?: Yes Alcohol Intake: current Alcohol Intake frequency: 0-2 drinks per day Drug use: Current Sobriety Substance use type: does not use Details: drank twisted tea today Current gender identity: female Do you feel safe at home: Yes Do you feel safe in your relationship?: Yes Additional Social history: Ms. Higginbotham has a significant other in the form of a boyfriend. Her only child, a son, reportedly over the last 1 1/2 years. Continued tobacco use. 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 Intermitted EtOH use. Exam Const General: cooperative, healthy appearing, comfortable and no acute distress Orientation: alert and awake [facility] Head: normal to inspection, normocephalic and atraumatic Ears: hearing grossly normal bilaterally, external ears normal, TM normal on the right, TM normal on the left, EAC's normal (Only on right side), EAC abnormal (left) erythema and edema, normal mastoids bilaterally and no periauricular adenopathy General nose exam: external nose normal Face and sinus: normal facial exam Mouth: moist mucous membranes Eyes General: appearance normal, both eyes and all related structures Conjunctivae: conjunctivae normal Neck Neck: normal visual inspection, full ROM, no lymphadenopathy, no meningeal signs, trachea midline, supple and nontender Resp Effort & Inspection: normal respiratory effort and able to speak in complete sentences Auscultation: clear to auscultation bilaterally Cardio Rate: regular rate Rhythm: regular rhythm Skin General skin exam: no rashes or lesions noted Neuro General: patient alert, patient awake, moves all extremities and no focal motor deficits Sensory Exam: no sensory deficits noted Psych Appearance: grossly normal Mental Status: mental status grossly normal
== END 2021-04-13 14:47 | disposition home or self-care (01) ==
PROVIDERS: Emergency Provider Physician Assistant; PCP Family Medicine
DX: H60.8X2 Other otitis externa, left ear (principal)
CPT/HCPCS: 99283

== ENCOUNTER 2021-09-28 02:05 | Emergency (ER) | payer MEDICAID, SELFPAY ==
[2021-09-28 02:05] VITALS: BP 186/111; PULSE 100; RESP 18; TEMP 36.8; O2SAT 98
--- NOTE | 2021-09-28 02:14 | ED.GENADUL_ITS ---
Discharge Plan Disposition Patient Disposition: HOME Condition: Stable Discharge Details Clinical Impression: Accidental overdose of insulin Primary Care Provider: Lito Bell ED Provider: Marc Antunez Home Meds and New Rx's Prescriptions: Continued polyethylene glycol 3350 [Miralax] 17 gram powder in packet 17 g PO DAILY PRN (Reason: constipation) Qty: 30 RF: 1 insulin aspart U-100 [Novolog Flexpen U-100 Insulin] 100 unit/mL (3 mL) insulin pen 5 unit subcut TID Qty: 5 RF: 4 mupirocin 2 % ointment 1 applic TP TID PRN (Reason: skin infection) Qty: 22 RF: 1 miconazole nitrate 2 % cream 1 applic TP BID PRN (Reason: vaginitis) Qty: 28 RF: 2 clotrimazole 1 % cream 1 applic TP BID Qty: 28 RF: 2 lisinopril 10 mg tablet 10 mg PO DAILY Qty: 90 RF: 4 albuterol sulfate 2.5 mg/0.5 mL solution for nebulization 5 mg IH Q6H PRN (Reason: shortness of breath or wheezing) Qty: 30 RF: 2 albuterol sulfate 90 mcg/actuation HFA aerosol inhaler 2 puff IH QID PRN (Reason: shortness of breath or wheezing) Qty: 3 RF: 4 senna 8.6 mg capsule 8.6 mg PO BID PRN (Reason: constipation) Qty: 60 RF: 2 docusate sodium [Colace] 100 mg capsule 100 mg PO BID Qty: 60 RF: 0 tramadol 50 mg tablet 50 mg PO Q8H PRN (Reason: pain) Qty: 30 RF: 0 Metamucil 3.4 gram/5.4 gram powder 1 tbs PO .3-5x/week RF: 0 epinephrine [EpiPen 2-Tejinder] 0.3 MG/0.3 ML auto-injector 0.3 mg IM ONCE Qty: 1 RF: 1 (DME) blood-glucose meter [FreeStyle Lite Meter] Kit See Dose Instructions .ROUTE .MEDSUPPLY Qty: 1 RF: 0 (DME) lancets [FreeStyle Lancets] 28 gauge misc 1 ea Miscellaneous QID Qty: 400 RF: 4 (DME) Blood Glucose Test Strip 1 ea Miscellaneous qid and Qty: 400 RF: 4 (DME) pen needle, diabetic 31 gauge x 1/3 needle 1 ea Miscellaneous QID Qty: 100 RF: 6 omeprazole 40 mg capsule,delayed release(DR/EC) 40 mg PO DAILY Qty: 90 RF: 4 diclofenac potassium 50 mg tablet 50 mg PO TID PRN (Reason: leg pain) Qty: 30 RF: 1 ondansetron HCl 4 mg tablet 4 mg PO Q8H PRN (Reason: nausea and vomiting) Qty: 9 RF: 0 atorvastatin 20 mg tablet 20 mg PO DAILY Qty: 90 RF: 4 insulin glargine 100 unit/mL (3 mL) insulin pen 40 unit SC QHS Qty: 15 RF: 2 lorazepam 1 mg tablet 1 mg PO BID PRN (Reason: anxiety) Qty: 14 RF: 0 cholecalciferol (vitamin D3) 25 mcg (1,000 unit) capsule 25 mcg PO DAILY Qty: 90 RF: 3 methadone 10 mg/5 mL Solution 20 mg PO DAILY RF: 0 Discharge Instructions Additional Instructions: you were observed and had no significant episodes of low blood sugar monitor your sugar as normal today, check your sugar if you feel weak, lightheaded or become sweaty follow up with your primary care provider in 1-2 weeks if you feel more ill, have persistent low blood sugar or difficulty breathing return to the emergency department Medical Decision Making 51 yo female with hx of IDDM, schizophrenia, who comes in with ems after she realized she took an extra dose of lantus. She took her lantus 40U at 11pm, then she states she forgot she had taken it so administered a second dose at 1am. She realized what she had done and then started to drink a lot of sugar drinks which then caused her to vomit and dry heave so she called ems. BGFS with ems reportedly over 100. She arrive caox4 and stable, intermittently dry heaving. She denies headache, fever, urinary symptoms, chest pain, dyspnea or abdominal pain. Denies si/hi, clear lungs, no abdominal tenderness moving all extremities well. Will evaluate with cmp and vbg and reassess, denies intentionally trying to harm herself. pt stable, sugar on fingerstick now 170 and eating without issues. Her hco2 on vbg was over 60 but has no respiratory symptoms and feels well now so feel this is chronic. Will monitor in the ED for hypoglycemia, if she has no significant hypoglycemia for a few hours will likely be discharged home pt asymptomatic and still has bgfs over 100. She's stable for d/c and will check sugars at home, advised to f/u with pcp and return precautions given Differential Diagnosis Differential Diagnosis: insulin overdose, hypoglycemia Medical Records Medical records reviewed: Yes I reviewed the patient's medical records. Lab Data Lab results reviewed: Yes I reviewed the patient's lab results. HPI General Mode of arrival: EMS . Date/Time Provider Initiated Documentation: 09/28/21 02:07 . Limitations to Documentation: no limitations . Information obtained by: patient . History of Present Illness 51 year old F presents to the emergency department with the chief complaint of extra dose of insulin, described as moderate, Patient started experiencing this hour(s) (1) and it has been constant. No relieving factors improve symptom(s), No exacerbating factors reported . Related Data Home Medications Medication Instructions Recorded Confirmed epinephrine [EpiPen 2-Tejinder] 0.3 mg IM ONCE #1 pen 04/01/13 04/22/21 psyllium husk 3.4 gram/5.4 gram 1 tbs PO .3-5x/week gm 10/22/19 04/22/21 oral powder blood-glucose meter #1 each 12/09/19 04/22/21 polyethylene glycol 3350 17 gram 17 g PO DAILY PRN #30 ea 08/06/20 04/22/21 oral powder packet clotrimazole 1 % topical cream 1 applic TP BID #28 gm 09/20/20 04/22/21 insulin aspart U-100 100 unit/mL 5 unit SUBCUT TID #5 syrg 09/20/20 04/22/21 (3 mL) subcutaneous pen miconazole nitrate 2 % topical 1 applic TP BID PRN #28 gm 09/20/20 04/22/21 cream mupirocin 2 % topical ointment 1 applic TP TID PRN #22 gm 09/20/20 04/22/21 methadone 20 mg PO DAILY 11/15/20 04/22/21 blood sugar diagnostic #400 strip 12/08/20 04/22/21 lancets 28 gauge #400 each 12/08/20 04/22/21 pen needle, diabetic 31 gauge x #100 ea 12/08/20 04/22/21 1/ albuterol sulfate 2.5 mg/0.5 mL 5 mg IH Q6H PRN #30 each 12/31/20 04/22/21 solution for nebulization albuterol sulfate 90 mcg/actuation 2 puff IH QID PRN #3 ea 12/31/20 04/22/21 aerosol inhaler docusate sodium 100 mg capsule 100 mg PO BID #60 cap 12/31/20 04/22/21 lisinopril 10 mg tablet 10 mg PO DAILY #90 tab 12/31/20 04/22/21 sennosides 8.6 mg capsule 8.6 mg PO BID PRN #60 cap 12/31/20 04/22/21 tramadol 50 mg tablet 50 mg PO Q8H PRN #30 tab 12/31/20 04/22/21 omeprazole 40 mg capsule,delayed 40 mg PO DAILY #90 cap 01/13/21 04/22/21 release diclofenac potassium 50 mg tablet 50 mg PO TID PRN #30 tab 02/09/21 04/22/21 ondansetron HCl 4 mg tablet 4 mg PO Q8H PRN #9 tab 04/12/21 04/22/21 atorvastatin 20 mg tablet 20 mg PO DAILY #90 tab 05/19/21 insulin glargine 100 unit/mL (3 40 unit SC QHS #15 ml 05/19/21 mL) subcutaneous pen lorazepam 1 mg tablet 1 mg PO BID PRN #14 tab 06/10/21 cholecalciferol (vitamin D3) 25 25 mcg PO DAILY #90 cap 08/29/21 mcg (1,000 unit) capsule Previous Rx's Medication Instructions Recorded blood-glucose meter #1 each 12/09/19 polyethylene glycol 3350 17 gram 17 g PO DAILY PRN #30 ea 08/06/20 oral powder packet clotrimazole 1 % topical cream 1 applic TP BID #28 gm 09/20/20 insulin aspart U-100 100 unit/mL 5 unit SUBCUT TID #5 syrg 09/20/20 (3 mL) subcutaneous pen miconazole nitrate 2 % topical 1 applic TP BID PRN #28 gm 09/20/20 cream mupirocin 2 % topical ointment 1 applic TP TID PRN #22 gm 09/20/20 blood sugar diagnostic #400 strip 12/08/20 lancets 28 gauge #400 each 12/08/20 pen needle, diabetic 31 gauge x #100 ea 12/08/20/ albuterol sulfate 2.5 mg/0.5 mL 5 mg IH Q6H PRN #30 each 12/31/20 solution for nebulization albuterol sulfate 90 mcg/actuation 2 puff IH QID PRN #3 ea 12/31/20 aerosol inhaler docusate sodium 100 mg capsule 100 mg PO BID #60 cap 12/31/20 lisinopril 10 mg tablet 10 mg PO DAILY #90 tab 12/31/20 sennosides 8.6 mg capsule 8.6 mg PO BID PRN #60 cap 12/31/20 tramadol 50 mg tablet 50 mg PO Q8H PRN #30 tab 12/31/20 omeprazole 40 mg capsule,delayed 40 mg PO DAILY #90 cap 01/13/21 release diclofenac potassium 50 mg tablet 50 mg PO TID PRN #30 tab 02/09/21 ondansetron HCl 4 mg tablet 4 mg PO Q8H PRN #9 tab 04/12/21 atorvastatin 20 mg tablet 20 mg PO DAILY #90 tab 05/19/21 insulin glargine 100 unit/mL (3 40 unit SC QHS #15 ml 05/19/21 mL) subcutaneous pen lorazepam 1 mg tablet 1 mg PO BID PRN #14 tab 06/10/21 cholecalciferol (vitamin D3) 25 25 mcg PO DAILY #90 cap 08/29/21 mcg (1,000 unit) capsule Allergies Allergy/AdvReac Type Severity Reaction Status Date / Time venom-honey bee Allergy Intermediate Verified 04/22/21 09:47 [bee venom (honey bee)] Sulfa (Sulfonamide Allergy Rash & Verified 04/22/21 09:47 Antibiotics) Shortness of Breath hydroxyzine HCl AdvReac Intermediate nausea/vomiting, Verified 04/22/21 09:47 [From Vistaril] palpitations General Stated Complaint: Diabetes LAURIE: 3 Review of Systems All systems reviewed & are unremarkable except as noted in HPI and below Constitutional Constitutional: Denies chills, Denies fever(s) and Denies weakness Cardiovascular Cardiovascular: Denies chest pain and Denies dyspnea Respiratory Respiratory: Denies cough and Denies dyspnea Gastrointestinal Gastrointestinal: Denies abdominal pain Musculoskeletal Musculoskeletal: Denies joint swelling Neurologic Neurologic: Denies weakness PFS All Active Problems (Updated 09/28/21 @ 03:16 by Marc Antunez MD) Accidental overdose of insulin (Acute) Tinnitus (Acute) Otitis externa (Acute) Hypertension (Chronic) Abscess of finger (Acute) Distal radius fracture, right (Acute) Wrist pain, right (Acute) Insufficiency fracture of tibia (Acute) Internal derangement of right knee (Acute 11/14/20) Abdominal pain (Acute) Type 2 diabetes mellitus with hypoglycemic insulin reaction (Acute) Headache (Acute) Gastroenteritis (Acute) OMID (acute kidney injury) (Acute) Pneumonia (Acute) DVT prophylaxis (Acute) Lack of intravenous access (Acute) DKA (diabetic ketoacidoses) (Acute) Current use of insulin (Chronic) Dehydration (Acute 02/01/15) Elevated serum creatinine (Acute 02/01/15) Medical History Abdominal pain Alcohol abuse Alcohol dependence in remission Anxiety Cellulitis of left hand (02/01/15) a. secondary to cat bite vs. IVDU b. has 13 cats at home c. denies ongoing IVDU at this time Closed fracture of distal end of right fibula (10/04/16) Constipation COPD (chronic obstructive pulmonary disease) Current smoker (02/01/15) x 29 years Depressive disorder Diabetes mellitus, type II a. chronic noncompliance b. multiple episodes of admission for [facility] c. ? 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 Hyperlipemia Hyperlipidemia statin started Non compliance with medical treatment (02/01/15) Panic disorder PTSD (post-traumatic stress disorder) Schizophrenia Type 2 diabetes mellitus with hypoglycemic insulin reaction Umbilical hernia, incarcerated Ventral hernia without obstruction or gangrene Social History Smoking/Tobacco Use Status: Current every day Tobacco Type: cigarettes Smoking risk assessment performed?: Yes Alcohol Intake: current Alcohol Intake frequency: 0-2 drinks per day Drug use: Current Sobriety Substance use type: does not use Details: drank twisted tea today Current gender identity: female Do you feel safe at home: Yes Do you feel safe in your relationship?: Yes Additional Social history: Ms. Higginbotham has a significant other in the form of a boyfriend. Her only child, a son, reportedly over the last 1 1/2 years. Continued tobacco use. 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 Intermitted EtOH use. Exam Const General: other (dry heaving) Orientation: alert HENMT Head: normal to inspection Ears: external ears normal General nose exam: external nose normal Mouth: moist mucous membranes Eyes General: appearance normal, both eyes and all related structures Neck Neck: normal visual inspection Resp Effort & Inspection: normal respiratory effort and able to speak in complete sentences Cardio Rate: regular rate GI Palpation: soft and nontender Skin General skin exam: no rashes or lesions noted Neuro General: patient alert and patient oriented x3 Extrem General: normal to inspection Psych Mental Status: mental status grossly normal Course Vital Signs Vital signs: Vital Signs Temperature 36.8 C 09/28/21 02:05 Pulse 100 H 09/28/21 02:05 Respiratory Rate 18 09/28/21 02:05 Blood Pressure 186/111 H 09/28/21 02:05 Pulse Oximetry 98 09/28/21 02:05 Temperature 36.8 C 09/28/21 02:05 Pulse 100 H 09/28/21 02:05 Respiratory Rate 18 09/28/21 02:05 Respiratory Effort 09/28/21 02:08 Blood Pressure 186/111 H 09/28/21 02:05 Blood Pressure Position Sitting 09/28/21 02:05 Pulse Oximetry 98 09/28/21 02:05 Pain Level 0 09/28/21 02:05
[2021-09-28 02:32] LABS: Abs Immature Grans 0.01 10^3/uL (0.0-0.06); Absolute Basophil Count 0.02 10^3/uL (0.0-0.2); Absolute Eosinophil Count 0.21 10^3/uL (0.0-0.7); Absolute Lymphocyte Count 2.39 10^3/uL (1.2-3.4); Absolute Monocyte Count 0.36 10^3/uL (0.1-0.8); Absolute Neutrophil Count 2.41 10^3/uL (1.2-6.7); BE (Venous) 8 mmol/L (-2-3); Basophils % 0.4; Eosinophils % 3.9; HCO3 (Venous) 34 mmol/L (23-28); HCT 42.8 % (36.0-46.0); HGB 13.3 g/dL (11.2-15.7); Immature Grans % 0.2; Lymphocytes % 44.3; MCH 25.9 pg (27.0-33.0); MCHC 31.1 % (32.0-36.0); MCV 83.3 fL (80-95); MPV 8.6 fL (8.0-11.0); Monocytes % 6.7; Neutrophils % 44.5; Nucleated RBC 0 %; O2 Sat (Venous) 50 %; Platelet Count 272 10^3/uL (130-400); RBC 5.14 10^6/uL (3.93-5.22); RDW 14.9 % (11.7-14.6); RDW-SD 45.4 fL; TCO2 (Venous) 31 mmol/L (24-29); pH (Venous) 7.34 (7.31-7.41); pO2 (Venous) 28 mmHg
[2021-09-28] MEDS: Prochlorperazine 10 MG/2 ML VIAL IVP (02:40)
[2021-09-28] MEDS: Normal Saline 100 ML 999 ML (02:41)
[2021-09-28 02:48] LABS: ALT 28 U/L (14-59); AST 16 U/L (15-37); Albumin 3.2 g/dL (3.4-5.0); Alkaline Phosphatase 96 U/L (46-116); Anion Gap 6.6 mmol/L (3-11); BUN 13 mg/dL (7-18); Bilirubin, Total 0.3 mg/dL (0.2-1.0); CO2 33.4 mmol/L (21.0-32.0); CREATININE 1.1 mg/dL (0.55-1.02); Calcium 8.8 mg/dL (8.5-10.1); Chloride 102 mmol/L (98-107); Estimated GFR 52.36 (mL/min/1.73m2); Glucose 149 mg/dL (74-106); Magnesium 1.7 mg/dL (1.8-2.4); Potassium 3.4 mmol/L (3.5-5.1); Sodium 142 mmol/L (136-145); Total Protein 7.4 g/dL (6.4-8.2)
[2021-09-28 02:54] LABS: Bilirubin Negative (Negative); Blood Negative (Negative); Clarity Sl Cloudy (Clear); Glucose 500 mg/dL (Negative); Ketones Negative (Negative); Leukocyte Esterase Negative (Negative); Nitrite Negative (Negative); Urobilinogen 0.2 EU/dL (Up TO 0.2)
[2021-09-28 02:59] LABS: Creatine Kinase 110 U/L (26-192)
[2021-09-28 05:15] VITALS: BP 138/68; PULSE 68; RESP 18; TEMP 36.4; O2SAT 99
[2021-10-03 06:14] LABS: pCO2 (Venous) 63 mmHg (41-51)
== END 2021-09-28 05:20 | disposition home or self-care (01) ==
LOC: ER 05:16
PROVIDERS: Emergency Provider Emergency Medicine; PCP Family Medicine
DX: T38.3X1A Poisoning by insulin and oral hypoglycemic [antidiabetic] drugs, accidental (unintentional), initial encounter (principal); E11.40 Type 2 diabetes mellitus with diabetic neuropathy, unspecified
CPT/HCPCS: 36415; 36416; 80053; 82550; 82805; 82962; 96374; 99284; 81003; 83735; 85025; 99283; J0780

== ENCOUNTER 2022-03-03 01:15 | Outpatient (CLI) | payer MEDICAID, SELFPAY | END 2022-03-03 01:16 | disposition home or self-care (01) | LOC: LOS 01:16 | PROVIDERS: PCP Family Medicine; Visit Provider Family Medicine ==

== ENCOUNTER 2022-03-20 06:23 | Emergency (ER) | payer MEDICAID, SELFPAY ==
--- NOTE | 2022-03-20 06:30 | DI.RAD_ITS ---
Exam(s) XR CHEST 2V PA LATERAL EXAM: XR CHEST 2V PA LATERAL CLINICAL HISTORY: cough, eval for pneumonia. TECHNIQUE: 2D digital imaging was performed. COMPARISON: Prior chest x-ray of 07/20/2019 FINDINGS: 2 views: Heart size is normal. The mediastinum is not widened. There is platelike atelectasis in both lung bases. No confluent infiltrates nor pleural effusions. No pulmonary edema. No pneumothorax. IMPRESSION: Subsegmental platelike atelectasis noted in the lung bases. No confluent infiltrates nor pleural eff usions evident DATA REPOSITORY: RADIATION DOSE DELIVERED:
[2022-03-20 06:34] VITALS: BP 166/90; PULSE 74; RESP 16; TEMP 36.8; O2SAT 95
--- NOTE | 2022-03-20 06:41 | W.ED.GENAD ---
Discharge Plan Disposition Patient Disposition: HOME Condition: Good Discharge Details Clinical Impression: Bronchitis Primary Care Provider: Xin Stern ED Provider: Luis A Owusu Home Meds and New Rx's Prescriptions: Continued mupirocin 2 % ointment 1 applic TP TID PRN (Reason: skin infection) Qty: 22 1RF clotrimazole 1 % cream 1 applic TP BID Qty: 28 2RF Rx Instructions: apply to feet twice a day until rash is gone albuterol sulfate 2.5 mg/0.5 mL solution for nebulization 5 mg IH Q6H PRN (Reason: shortness of breath or wheezing) Qty: 30 2RF albuterol sulfate 90 mcg/actuation HFA aerosol inhaler 2 puff IH QID PRN (Reason: shortness of breath or wheezing) Qty: 3 4RF senna 8.6 mg capsule 8.6 mg PO BID PRN (Reason: constipation) Qty: 60 2RF miconazole nitrate 2 % cream 1 applic TP BID PRN (Reason: vaginitis) Qty: 28 2RF Rx Instructions: local application twice a day as needed (itching,burning) docusate sodium [Colace] 100 mg capsule 100 mg PO BID Qty: 180 3RF lisinopril 20 mg tablet 20 mg PO DAILY Qty: 90 3RF omeprazole 40 mg capsule,delayed release(DR/EC) 40 mg PO DAILY Qty: 90 3RF nicotine 14 mg/24 hr patch 24 hour 1 patch transdermal DAILY Qty: 28 0RF ondansetron HCl 4 mg tablet 4 mg PO DAILY PRN (Reason: nausea and vomiting) Qty: 10 1RF triamcinolone acetonide 0.1 % ointment 1 applic topical BID Qty: 80 0RF Rx Instructions: to affected area (DME) lancets [FreeStyle Lancets] 28 gauge misc 1 ea Miscellaneous QID Qty: 400 4RF Rx Instructions: Check blood sugar 4times a day lorazepam 1 mg tablet 1 mg PO DAILY PRN (Reason: anxiety) Qty: 10 0RF terbinafine HCl [Lamisil AT] 1 % cream 1 applic topical BID Qty: 30 1RF Rx Instructions: to affected area on feet epinephrine [EpiPen 2-Tejinder] 0.3 MG/0.3 ML auto-injector 0.3 mg IM ONCE Qty: 1 (DME) blood-glucose meter [FreeStyle Lite Meter] Kit See Dose Instructions .ROUTE .MEDSUPPLY Qty: 1 0RF Dose Instruction: As directed Rx Instructions: As directed/ check QiD/ diclofenac potassium 50 mg tablet 50 mg PO TID PRN (Reason: leg pain) Qty: 30 1RF Rx Instructions: take one tablet with food 3 times a day as needed for pain atorvastatin 20 mg tablet 20 mg PO DAILY Qty: 90 4RF cholecalciferol (vitamin D3) 25 mcg (1,000 unit) capsule 25 mcg PO DAILY Qty: 90 3RF insulin aspart U-100 [Novolog Flexpen U-100 Insulin] 100 unit/mL (3 mL) insulin pen See Rx Instructions .ROUTE .COMPLEX Qty: 15 0RF Dose Instruction: INJECT 5 UNITS UNDER THE SKIN THREE TIMES DAILY WITH MEALS Rx Instructions: INJECT 5 UNITS UNDER THE SKIN THREE TIMES DAILY WITH MEALS insulin glargine 100 unit/mL (3 mL) insulin pen 40 unit SC QHS Qty: 30 11RF (DME) pen needle, diabetic 31 gauge x 1/3 needle 1 ea Miscellaneous QID Qty: 200 6RF Rx Instructions: 31G X 3/16 needle Dx: E11.8 (DME) Blood Glucose Test Strip 1 ea Miscellaneous qid and Qty: 400 4RF Rx Instructions: Free Style Lite strips. PT USES INSULIN. TESTS QID. DIAGNOSIS CODE E11.649 methadone 10 mg/5 mL Solution 25 mg PO DAILY Rx Instructions: prescribed @ [facility] per pt Discharge Instructions Instructions: Acute Bronchitis (ED) Additional Instructions: At this time your chest x-ray shows no evidence of pneumonia. Please use the inhaler, 2 puffs every 4-6 hours to maintain good movement in your lungs. Please take 2 tablespoons of honey every 4-6 hours for cough. If you develop any fever, or worsening cough over the next 2 to 3 days please return for reassessment. If you notice any worsening of your symptoms, or any new symptoms such as vomiting, diarrhea, fever, chills, shortness of breath, chest pain, numbness, weakness, or fainting , please return immediately to the emergency department for reevaluation. Please follow up with your primary care provider as soon as possible for reassessment and reevaluation. As always, it was a pleasure participating in your medical care today. Referrals: Xin Stern NP [Primary Care Provider] - Medical Decision Making This is a 51-year-old female with a past medical history of type 2 diabetes, hypertension, high cholesterol, diabetes, schizophrenia, who presents today for evaluation of cough. Patient states that last week she was diagnosed with a viral upper respiratory infection. She has had 2 negative COVID test. Since then she has had a persistent cough. She states that she has to force herself to cough to get the congestion out of her chest. She denies vomiting or diarrhea. She denies any pain, chest tightness, tearing or ripping sensation in the chest. She does smoke. She has had an inhaler in the past but does not have one currently and has not been able to use them. She denies any other complaints at this time. No hematemesis, green sputum, or other abnormality otherwise. No other complaints at this time. Physical exam demonstrates clear lung sounds. Oxygenation is excellent. No clinical evidence of pneumonia. We will get an x-ray to rule out any infiltrate. We will give her breathing treatment as I suspect there is a component of mild reactive airway disease present. We will monitor closely and reassess. 7:56 AM Chest x-ray shows no evidence of pneumonia. Diagnosis of bronchitis. Will give albuterol for home use. With no evidence of significant pneumonia or infectious etiology at this time requiring antibiotics we will hold on any additional antibacterial treatment as this is likely a postviral bronchitis. Discussed red flags which to return. I have extensively reviewed the treatment plan and discharge instructions with the patient. I have addressed all patient concerns at this time. The patient was made aware of what symptoms to monitor for that would warrant a return to the emergency department. Discussed the plan with the patient, they demonstrate verbal understanding and agreement with our assessment and plan at this time. The documentation in this chart was dictated using [email or web address] dictation software. Please excuse any dictation errors. FINDINGS: Mildly limited due to rotation Lungs: Mild chronic interstitial prominence. No consolidation. Pleural spaces: No pleural effusion. No pneumothorax. Heart/Mediastinum: Grossly stable. Bones/joints: Grossly stable IMPRESSION: No radiographic evidence for pneumonia Thank you for allowing us to participate in the care of your patient. Dictated and Authenticated by: Milton Bean MD 03/20/2022 7:33 AM Eastern Time ([place] & [place]) HPI General Date/Time Provider Initiated Documentation: 03/20/22 06:34. HPI Narrative: This is a 51-year-old female with a past medical history of type 2 diabetes, hypertension, high cholesterol, diabetes, schizophrenia, who presents today for evaluation of cough. Patient states that last week she was diagnosed with a viral upper respiratory infection. She has had 2 negative COVID test. Since then she has had a persistent cough. She states that she has to force herself to cough to get the congestion out of her chest. She denies vomiting or diarrhea. She denies any pain, chest tightness, tearing or ripping sensation in the chest. She does smoke. She has had an inhaler in the past but does not have one currently and has not been able to use them. She denies any other complaints at this time. No hematemesis, green sputum, or other abnormality otherwise. No other complaints at this time. Related Data Home Medications Medication Instructions Recorded Confirmed epinephrine 0.3 mg/0.3 mL 0.3 mg IM ONCE #1 pen 04/01/13 03/20/22 injection, auto-injector (EpiPen 2-Tejinder) blood-glucose meter (FreeStyle #1 ea 12/09/19 03/03/22 Lite Meter kit) clotrimazole 1 % topical cream 1 applic topical BID #28 grams 09/20/20 03/20/22 mupirocin 2 % topical ointment 1 applic topical TID PRN skin 09/20/20 03/20/22 infection #22 grams methadone 10 mg/5 mL oral solution 25 mg PO DAILY 11/15/20 03/20/22 albuterol sulfate 2.5 mg/0.5 mL 5 mg inhalation Q6H PRN shortness 12/31/20 03/20/22 solution for nebulization of breath or wheezing #30 ea albuterol sulfate 90 mcg/actuation 2 puff inhalation QID PRN 12/31/20 03/20/22 aerosol inhaler shortness of breath or wheezing #3 ea sennosides 8.6 mg capsule (senna) 8.6 mg PO BID PRN constipation #60 12/31/20 03/20/22 caps diclofenac potassium 50 mg tablet 50 mg PO TID PRN leg pain #30 tabs 02/09/21 03/20/22 atorvastatin 20 mg tablet 20 mg PO DAILY #90 tabs 05/19/21 03/20/22 cholecalciferol (vitamin D3) 25 25 mcg PO DAILY #90 caps 08/29/21 03/20/22 mcg (1,000 unit) capsule docusate sodium 100 mg capsule 100 mg PO BID #180 caps 10/25/21 03/20/22 (Colace) lisinopril 20 mg tablet 20 mg PO DAILY #90 tabs 10/25/21 03/03/22 miconazole nitrate 2 % topical 1 applic topical BID PRN vaginitis 10/25/21 03/20/22 cream #28 grams nicotine 14 mg/24 hr daily 1 patch transdermal DAILY #28 ea 10/25/21 03/20/22 transdermal patch omeprazole 40 mg capsule,delayed 40 mg PO DAILY #90 caps 10/25/21 03/20/22 release Novolog Flexpen U-100 Insulin 100 See Rx Instructions .Route 02/22/22 03/20/22 unit/mL (3 mL) subcutaneous .COMPLEX #15 mL (insulin aspart U-100) lancets 28 gauge (FreeStyle #400 ea 03/03/22 03/03/22 Lancets) lorazepam 1 mg tablet 1 mg PO DAILY PRN anxiety #10 tabs 03/03/22 03/20/22 ondansetron HCl 4 mg tablet 4 mg PO DAILY PRN nausea and 03/03/22 03/20/22 vomiting #10 tabs terbinafine HCl 1 % topical cream 1 applic topical BID #30 grams 03/03/22 03/20/22 (Lamisil AT) triamcinolone acetonide 0.1 % 1 applic topical BID #80 grams 03/03/22 03/20/22 topical ointment blood sugar diagnostic (Blood #400 strips 03/15/22 Glucose Test strips) insulin glargine 100 unit/mL (3 40 unit (0.4 mL) subcut QHS #30 mL 03/15/22 03/20/22 mL) subcutaneous pen pen needle, diabetic 31 gauge x #200 ea 03/15/22 1/3 Previous Rx's Medication Instructions Recorded blood-glucose meter (FreeStyle #1 ea 12/09/19 Lite Meter kit) clotrimazole 1 % topical cream 1 applic topical BID #28 grams 09/20/20 mupirocin 2 % topical ointment 1 applic topical TID PRN skin 09/20/20 infection #22 grams albuterol sulfate 2.5 mg/0.5 mL 5 mg inhalation Q6H PRN shortness 12/31/20 solution for nebulization of breath or wheezing #30 ea albuterol sulfate 90 mcg/actuation 2 puff inhalation QID PRN 12/31/20 aerosol inhaler shortness of breath or wheezing #3 ea sennosides 8.6 mg capsule (senna) 8.6 mg PO BID PRN constipation #60 12/31/20 caps diclofenac potassium 50 mg tablet 50 mg PO TID PRN leg pain #30 tabs 02/09/21 atorvastatin 20 mg tablet 20 mg PO DAILY #90 tabs 05/19/21 cholecalciferol (vitamin D3) 25 25 mcg PO DAILY #90 caps 08/29/21 mcg (1,000 unit) capsule docusate sodium 100 mg capsule 100 mg PO BID #180 caps 10/25/21 (Colace) lisinopril 20 mg tablet 20 mg PO DAILY #90 tabs 10/25/21 miconazole nitrate 2 % topical 1 applic topical BID PRN vaginitis 10/25/21 cream #28 grams nicotine 14 mg/24 hr daily 1 patch transdermal DAILY #28 ea 10/25/21 transdermal patch omeprazole 40 mg capsule,delayed 40 mg PO DAILY #90 caps 10/25/21 release Novolog Flexpen U-100 Insulin 100 See Rx Instructions .Route 02/22/22 unit/mL (3 mL) subcutaneous .COMPLEX #15 mL (insulin aspart U-100) lancets 28 gauge (FreeStyle #400 ea 03/03/22 Lancets) lorazepam 1 mg tablet 1 mg PO DAILY PRN anxiety #10 tabs 03/03/22 ondansetron HCl 4 mg tablet 4 mg PO DAILY PRN nausea and 03/03/22 vomiting #10 tabs terbinafine HCl 1 % topical cream 1 applic topical BID #30 grams 03/03/22 (Lamisil AT) triamcinolone acetonide 0.1 % 1 applic topical BID #80 grams 03/03/22 topical ointment blood sugar diagnostic (Blood #400 strips 03/15/22 Glucose Test strips) insulin glargine 100 unit/mL (3 40 unit (0.4 mL) subcut QHS #30 mL 03/15/22 mL) subcutaneous pen pen needle, diabetic 31 gauge x #200 ea 03/15/22 1/3 Allergies Allergy/AdvReac Type Severity Reaction Status Date / Time venom-honey bee Allergy Intermediate Verified 03/20/22 06:40 [bee venom (honey bee)] Sulfa (Sulfonamide Allergy Rash & Verified 03/20/22 06:40 Antibiotics) Shortness of Breath hydroxyzine HCl AdvReac Intermediate nausea/vomiting, Verified 03/20/22 06:40 [From Vistaril] palpitations General Stated Complaint: RespSymp LAURIE: 3 Review of Systems All systems reviewed & are unremarkable except as noted in HPI and below PFSH All Active Problems (Updated 03/20/22 @ 07:23 by Luis A Owusu DO) Bronchitis (Acute) Substance abuse (Acute) History of opiate abuse, more remotely benzodiazepine abuse, followed by [facility] in [place], on methadone Hyperlipidemia (Acute) Anxiety (Chronic) 2021-Drug contract with [facility] queried, plan is only occasional exam lorazepam for panic attack, reviewed with [facility] clinic Plan is a limit of 10/month of lorazepam Patient already has Narcan at home 01/31/2022 patient given 1 refill of 10 tabs by phone, she will need an office visit for any further refills Hypertension (Chronic) Abscess of finger (Acute) Distal radius fracture, right (Acute) Internal derangement of right knee (Acute 11/14/20) Type 2 diabetes mellitus with hypoglycemic insulin reaction (Acute) OMID (acute kidney injury) (Acute) Pneumonia (Acute) Lack of intravenous access (Acute) DKA (diabetic ketoacidoses) (Acute) Elevated serum creatinine (Acute 02/01/15) Medical History Alcohol abuse Alcohol dependence in remission Anxiety Cellulitis of left hand (02/01/15) a. secondary to cat bite vs. IVDU b. has 13 cats at home c. denies ongoing IVDU at this time Closed fracture of distal end of right fibula (10/04/16) Constipation COPD (chronic obstructive pulmonary disease) Current smoker (02/01/15) x 29 years Depressive disorder Diabetes mellitus, type II a. chronic noncompliance b. multiple episodes of admission for [facility] c. ? 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 Hyperlipemia Hyperlipidemia statin started Non compliance with medical treatment (02/01/15) Panic disorder PTSD (post-traumatic stress disorder) Schizophrenia Umbilical hernia, incarcerated Ventral hernia without obstruction or gangrene Social History Smoking/Tobacco Use Status: Current every day Tobacco Type: cigarettes Smoking risk assessment performed?: Yes Alcohol Intake: current Alcohol Intake frequency: 0-2 drinks per day Drug use: Current Sobriety Substance use type: does not use Details: drank twisted tea today Current gender identity: female Do you feel safe at home: Yes Do you feel safe in your relationship?: Yes Additional Social history: Ms. Higginbotham has a significant other in the form of a boyfriend. Her only child, a son, reportedly over the last 1 1/2 years. Continued tobacco use. 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 Intermitted EtOH use. Exam Narrative Exam Narrative: 1.Const: Well-nourished, Well-developed, appearing stated age 2.Eyes: PERRL, no conjunctival injection, and symmetrical lids. 3.ENT: Atraumatic external nose and ears. Moist MM. Neck: Symmetric, trachea midline, No thyromegaly. 4.CVS: +S1/S2, No murmurs or gallops. Peripheral pulses 2+ and equal in all extremities. Brisk capillary refill in all extremities. 5.RESP: Unlabored respiratory effort. Clear to auscultation bilaterally. No wheezes rales or rhonchi 6.GI: Soft, Nontender/Nondistended, No hepatosplenomegaly. No guarding or rebound. 7.MSK: Normocephalic/Atraumatic, Extremities w/o deformity or ttp No cyanosis or clubbing, Normal movement of all extremities 8.Skin: Warm, Dry. No rashes or lesions. 9.Neuro: production planner II-XII grossly intact. Sensation grossly intact, no focal neurologic deficits. 10.Psych: (AAO) x3. Appropriate mood and affect Course Vital Signs Vital signs: Vital Signs Temperature 36.8 C 03/20/22 06:34 Pulse 74 03/20/22 06:34 Respiratory Rate 16 03/20/22 06:34 Blood Pressure 166/90 H 03/20/22 06:34 Pulse Oximetry 95 03/20/22 06:34 Temperature 36.8 C 03/20/22 06:34 Temperature Source Skin 03/20/22 06:34 Pulse 74 03/20/22 06:34 Respiratory Rate 16 03/20/22 06:34 Blood Pressure 166/90 H 03/20/22 06:34 Pulse Oximetry 95 03/20/22 06:34 Pain Level 5 03/20/22 06:34 Sign Out Sign Out Data: Sign Out Comment: Cough for the last 3 to 4 days. Lungs are clear. Pending chest x-ray. Recommend albuterol for home Last updated by Luis A Owusu DO at 03/20/22 07:24
[2022-03-20 07:23] VITALS: RESP 1
[2022-03-20] MEDS: Albuterol/Ipratropium 3 ML UPD VIAL UPD (07:23)
--- NOTE | 2022-03-20 07:33 | DI.VRAD_ITS ---
PROCEDURE INFORMATION: Exam: XR Chest Exam date and time: 03/20/2022 6:57 AM Age: 51 years old Clinical indication: Patient HX: Cough, eval. For pneumonia TECHNIQUE: Imaging protocol: Radiologic exam of the chest. Views: 2 views. COMPARISON: XR PORTABLE CHEST AP POST LINE 07/20/2019 3:17 PM FINDINGS: Mildly limited due to rotation Lungs: Mild chronic interstitial prominence. No consolidation. Pleural spaces: No pleural effusion. No pneumothorax. Heart/Mediastinum: Grossly stable. Bones/joints: Grossly stable IMPRESSION: No radiographic evidence for pneumonia Dictated and Authenticated by: Milton Bean MD. Ordering:KENDRA Gunn MD
[2022-03-20 08:10] VITALS: BP 160/80; PULSE 85; RESP 16; TEMP 36.3; O2SAT 97
[2022-03-20] MEDS: Inhaler, Assist Device 1 EACH MC (08:10)
[2022-03-20] MEDS: Albuterol HFA 8 GM 60 PUFF INH IH (08:10)
[2022-03-20 08:14] VITALS: BP 160/80; PULSE 85; RESP 16; TEMP 36.3; O2SAT 97
== END 2022-03-20 08:26 | disposition home or self-care (01) ==
PROVIDERS: Emergency Provider Student in an Organized Health Care Education/Training Program; PCP Nurse Practitioner Family
DX: J20.9 Acute bronchitis, unspecified (principal); R05.1 Acute cough
CPT/HCPCS: 94640; 99283; 71046; J7620

== ENCOUNTER 2022-05-25 08:47 | Inpatient (IN) | payer MEDICAID, SELFPAY ==
[2022-05-25] VITALS (105 sets, daily range): BP systolic 51–176; BP diastolic 18–136; PULSE 51–129; RESP 16–43; TEMP 36.6–37.3; O2SAT 91–100
--- NOTE | 2022-05-25 09:00 | DI.RAD_ITS ---
Exam(s) XR PORTABLE CHEST AP EXAM: XR PORTABLE CHEST AP CLINICAL HISTORY: altered. TECHNIQUE: 2D digital imaging was performed. COMPARISON: CR CHEST 2 VIEWS PA,LAT from 04/17/2015 CR CHEST 2 VIEWS PA,LAT from 04/20/2015 CR CHEST 2 VIEWS PA,LAT from 10/28/2015 CR CHEST 2 VIEWS PA,LAT from 12/17/2017 CR,XR XR CHEST 2V PA LATERAL from 03/20/2022 FINDINGS: Single AP portable view. Heart size is upper normal. The mediastinum is not widened. Left lung is clear. There is subsegmental platelike atelectasis towards the right lung base. This, however, is unchanged from 03/20/2022. This it is an area that had prior infiltrate in March 2015 and therefore may represent scarring. It is unchanged from November 2017 chest x-ray. IMPRESSION: No acute pulmonary findings on this single AP portable view of the chest. Scarring in the right lung base is unchanged from at least 2018. This patient had prior infiltrate a t this location in March 2015 (with no evidence of recurrence of infiltrate at this time on this singl e view study). DATA REPOSITORY: RADIATION DOSE DELIVERED: All CT scans at this facility use at least one of these dose optimization techniques: automated exposure control; mA and/or kV adjustment per patient size (includes targeted e xams where dose is matched to clinical indication); or iterative reconstruction.
--- NOTE | 2022-05-25 09:00 | ED.GENADUL_ITS ---
Discharge Plan Disposition Patient Disposition: [facility] INPATIENT Condition: Critical Discharge Details Clinical Impression: DKA (diabetic ketoacidosis), Acute upper GI bleeding, Acute hypotension, Altered mental status Admit Date/Time: 05/25/22 11:48 Admit Provider: Jacky Galo Attending Provider: Jacky Galo Primary Care Provider: Xin Stern ED Provider: Mayi Todd Discharge Data Discharge Date/Time-TO BE ENTERED AT DEPARTURE: 05/25/22 13:14 Medical Decision Making 0850 -- 51-year-old female with a history of opiate abuse in remission, alcohol abuse, diabetes, hypertension, hyperlipidemia, COPD, anxiety, depression, PTSD schizophrenia presents for report of vomiting blood since overnight. EMS noted a systolic blood pressure in the 80s and patient appeared lethargic. Report of large amount of hematemesis on scene, approximately 10 cc of hematemesis in route. Fingerstick glucose 500 per EMS. Patient arrived to the ED drowsy but arousable with sternal rub. Blood pressure 110s/60s. Heart rate 108. Oxygen saturation 100% on room air. Gastroccult positive on hematemesis in route. Abdomen soft distally mildly tender. Pinpoint pupils. Given 1 dose of Narcan with brace immediate response and then drowsy again. 2 units of uncrossed matched blood ordered. 0910 -- patient drowsy again but responsive to sternal rub. Given an additional dose of Narcan and now more responsive and she is crying. 0920 -- patient restless and agitated. Given a dose of Ativan IV. Heart rate 120s. Blood pressure 114/81. Labs not returning. Hemoglobin 15. Case discussed with Dr. Huston --no recommendations for TXA and will hold on starting blood transfusion at this time. 1000 -- labs reviewed. White blood cell count 12. Glucose 968. Bicarb 7. pH 7.1. Anion gap 42. Lactate 6.7. Potassium 5.4. Creatinine 3.9 which is significantly increased compared to baseline. Normal salicylates, acetaminophen, alcohol. COVID-negative. Insulin bolus and drip ordered. Patient remains restless. Dose of morphine ordered. now at bedside who is stated that patient has been stating in the last few weeks that she believes she has been sent by God and is a bride of God . She has also been stating that she has been raped by an animal . 1100 -- patient now more hypotensive. 87/46. Patient has lost both IVs and able to place another IV. She has not received LR infusion due to having 1 IV which is not compatible with insulin. Second IV placed. Will start normal saline. 1145 -- patient now significantly hypotensive, as well as 50s/30s. Anesthesia able to come to the ED to place a R IJ central line due to high volume and acuity in the ED. Will order 1 unit PRBCs. Norepinephrine ordered to start if SBP remains below 80s. Case discussed with hospitalist who accepts patient for admission to the ICU. Patient remains somnolent but has gag reflex. She is tachypneic. 1215 -- BP 79/33. 1240 -- BP 90/44. Anesthesia unable to place arterial line after multiple atte mpts. Pt sonorous and tachypneic, + gag reflex. O2 sat 98% on 4 L. CXR no acute disease. Medical Records Medical records reviewed: Yes I reviewed the patient's medical records. Imaging Data Radiologic Study: Radiologist's impression: XR PORTABLE CHEST AP CLINICAL HISTORY: ? altered. ? TECHNIQUE:? 2D digital imaging was performed. COMPARISON:? CR CHEST 2 VIEWS PA,LAT from 04/17/2015 CR CHEST 2 VIEWS PA,LAT from 04/20/2015 CR CHEST 2 VIEWS PA,LAT from 10/28/2015 CR CHEST 2 VIEWS PA,LAT from 12/17/2017 CR,XR XR CHEST 2V PA ? LATERAL from 03/20/2022 FINDINGS: Single AP portable view. Heart size is upper normal.? The mediastinum is not widened. Left lung is clear.? There is subsegmental platelike atelectasis towards the right lung base.? This, however, is unchanged from 03/20/2022.? This it is an area that had prior infiltrate in March 2015 and therefore may represent scarring.? It is unchanged from November 2017 chest x-ray. IMPRESSION: No acute pulmonary findings on this single AP portable view of the chest. Scarring in the right lung base is unchanged from at least 2018.? This patient had prior infiltrate at this location in March 2015 (with no evidence of recurrence of infiltrate at this time on this single view study). Lab Data Lab results reviewed: Yes I reviewed the patient's lab results. Labs: Laboratory Tests Range/Units 05/25/22 05/25/22 05/25/22 08:55 09:05 09:07 WBC (4.4-10.8) 10^3/uL RBC (3.93-5.22) 10^6/uL Hgb (11.2-15.7) g/dL Hct (36.0-46.0) % MCV (80-95) fL MCH (27.0-33.0) pg MCHC (32.0-36.0) % RDW (11.7-14.6) % Plt Count (130-400) 10^3/uL MPV (8.0-11.0) fL Immature Gran % Neutrophils % Lymphocytes % Monocytes % Eosinophils % Basophils % Nucleated RBC % (0.0-0.3) % Absolute Neutrophils (1.2-6.7) 10^3/uL Absolute Lymphocytes (1.2-3.4) 10^3/uL Absolute Monocytes (0.1-0.8) 10^3/uL Absolute Eosinophils (0.0-0.7) 10^3/uL Absolute Basophils (0.0-0.2) 10^3/uL PT (9.3-11.0) sec INR (0.9-1.1) APTT (21.0-27.5) sec VBG pH (7.31-7.41) 7.10 L* VBG pCO2 (41-51) mmHg 23 L VBG pO2 mmHg 41 VBG HCO3 (23-28) mmol/L 7 L VBG Total CO2 (24-29) mmol/L 7 L VBG O2 Saturation % 60 VBG Base Excess (-2-3) mmol/L < -15 L VBG Lactate (0.6-1.4) mmol/L Sodium (136-145) mmol/L Potassium (3.5-5.1) mmol/L Chloride (98-107) mmol/L Carbon Dioxide (21.0-32.0) mmol/L Anion Gap (3-11) mmol/L BUN (7-18) mg/dL Creatinine (0.55-1.02) mg/dL Est GFR (CKD-EPI 2020) (mL/min/1.73m2) Glucose (74-106) mg/dL Calcium (8.5-10.1) mg/dL Phosphorus (2.6-4.7) mg/dL Magnesium (1.8-2.4) mg/dL Total Bilirubin (0.2-1.0) mg/dL AST (15-37) U/L ALT (14-59) U/L Alkaline Phosphatase (46-116) U/L Troponin I (<or=60) ng/L Total Protein (6.4-8.2) g/dL Albumin (3.4-5.0) g/dL Lipase Cancelled TSH Cancelled Salicylates (<2.8) mg/dL Acetaminophen (10-30) ug/mL Ethyl Alcohol Cancelled COVID-19 Source SARS-CoV-2 (PCR) (Negative) Patient ABO/Rh Antibody Screen Crossmatch Range/Units 05/25/22 05/25/22 05/25/22 09:07 09:07 09:07 WBC (4.4-10.8) 10^3/uL 12.04 H RBC (3.93-5.22) 10^6/uL 5.56 H Hgb (11.2-15.7) g/dL 15.0 Hct (36.0-46.0) % 49.2 H MCV (80-95) fL 89 MCH (27.0-33.0) pg 27.0 MCHC (32.0-36.0) % 30.5 L RDW (11.7-14.6) % 14.4 Plt Count (130-400) 10^3/uL 299 MPV (8.0-11.0) fL 10.7 Immature Gran % 0.7 Neutrophils % 89.4 Lymphocytes % 7.1 Monocytes % 2.6 Eosinophils % 0.0 Basophils % 0.2 Nucleated RBC % (0.0-0.3) % 0.0 Absolute Neutrophils (1.2-6.7) 10^3/uL 10.76 H Absolute Lymphocytes (1.2-3.4) 10^3/uL 0.85 L Absolute Monocytes (0.1-0.8) 10^3/uL 0.31 Absolute Eosinophils (0.0-0.7) 10^3/uL 0.00 Absolute Basophils (0.0-0.2) 10^3/uL 0.02 PT (9.3-11.0) sec INR (0.9-1.1) APTT (21.0-27.5) sec VBG pH (7.31-7.41) VBG pCO2 (41-51) mmHg VBG pO2 mmHg VBG HCO3 (23-28) mmol/L VBG Total CO2 (24-29) mmol/L VBG O2 Saturation % VBG Base Excess (-2-3) mmol/L VBG Lactate (0.6-1.4) mmol/L Sodium (136-145) mmol/L 135 L Potassium (3.5-5.1) mmol/L 5.4 H Chloride (98-107) mmol/L 85 L Carbon Dioxide (21.0-32.0) mmol/L 8.0 L Anion Gap (3-11) mmol/L 42.0 H BUN (7-18) mg/dL 57 H Creatinine (0.55-1.02) mg/dL 3.9 H* Est GFR (CKD-EPI 2020) (mL/min/1.73m2) 13.32 Glucose (74-106) mg/dL 968 H* Calcium (8.5-10.1) mg/dL 9.7 Phosphorus (2.6-4.7) mg/dL Magnesium (1.8-2.4) mg/dL 2.7 H Total Bilirubin (0.2-1.0) mg/dL 0.9 AST (15-37) U/L 13 L ALT (14-59) U/L 25 Alkaline Phosphatase (46-116) U/L 92 Troponin I (<or=60) ng/L < 50 Total Protein (6.4-8.2) g/dL 8.3 H Albumin (3.4-5.0) g/dL 4.3 Lipase 336 TSH 1.14 Salicylates (<2.8) mg/dL Acetaminophen (10-30) ug/mL Ethyl Alcohol < 3.0 COVID-19 Source SARS-CoV-2 (PCR) (Negative) Patient ABO/Rh A Positive Antibody Screen NEGATIVE Crossmatch See Detail Range/Units 05/25/22 05/25/22 05/25/22 09:07 09:07 09:07 WBC (4.4-10.8) 10^3/uL RBC (3.93-5.22) 10^6/uL Hgb (11.2-15.7) g/dL Hct (36.0-46.0) % MCV (80-95) fL MCH (27.0-33.0) pg MCHC (32.0-36.0) % RDW (11.7-14.6) % Plt Count (130-400) 10^3/uL MPV (8.0-11.0) fL Immature Gran % Neutrophils % Lymphocytes % Monocytes % Eosinophils % Basophils % Nucleated RBC % (0.0-0.3) % Absolute Neutrophils (1.2-6.7) 10^3/uL Absolute Lymphocytes (1.2-3.4) 10^3/uL Absolute Monocytes (0.1-0.8) 10^3/uL Absolute Eosinophils (0.0-0.7) 10^3/uL Absolute Basophils (0.0-0.2) 10^3/uL PT (9.3-11.0) sec 9.8 INR (0.9-1.1) 1.0 APTT (21.0-27.5) sec 20.4 L VBG pH (7.31-7.41) VBG pCO2 (41-51) mmHg VBG pO2 mmHg VBG HCO3 (23-28) mmol/L VBG Total CO2 (24-29) mmol/L VBG O2 Saturation % VBG Base Excess (-2-3) mmol/L VBG Lactate (0.6-1.4) mmol/L 6.7 H* Sodium (136-145) mmol/L Potassium (3.5-5.1) mmol/L Chloride (98-107) mmol/L Carbon Dioxide (21.0-32.0) mmol/L Anion Gap (3-11) mmol/L BUN (7-18) mg/dL Creatinine (0.55-1.02) mg/dL Est GFR (CKD-EPI 2020) (mL/min/1.73m2) Glucose (74-106) mg/dL Calcium (8.5-10.1) mg/dL Phosphorus (2.6-4.7) mg/dL Magnesium (1.8-2.4) mg/dL Total Bilirubin (0.2-1.0) mg/dL AST (15-37) U/L ALT (14-59) U/L Alkaline Phosphatase (46-116) U/L Troponin I (<or=60) ng/L Total Protein (6.4-8.2) g/dL Albumin (3.4-5.0) g/dL Lipase TSH Salicylates (<2.8) mg/dL Acetaminophen (10-30) ug/mL Ethyl Alcohol COVID-19 Source Nasal/Nares SARS-CoV-2 (PCR) (Negative) Negative Patient ABO/Rh Antibody Screen Crossmatch Range/Units 05/25/22 05/25/22 09:07 09:07 WBC (4.4-10.8) 10^3/uL RBC (3.93-5.22) 10^6/uL Hgb (11.2-15.7) g/dL Hct (36.0-46.0) % MCV (80-95) fL MCH (27.0-33.0) pg MCHC (32.0-36.0) % RDW (11.7-14.6) % Plt Count (130-400) 10^3/uL MPV (8.0-11.0) fL Immature Gran % Neutrophils % Lymphocytes % Monocytes % Eosinophils % Basophils % Nucleated RBC % (0.0-0.3) % Absolute Neutrophils (1.2-6.7) 10^3/uL Absolute Lymphocytes (1.2-3.4) 10^3/uL Absolute Monocytes (0.1-0.8) 10^3/uL Absolute Eosinophils (0.0-0.7) 10^3/uL Absolute Basophils (0.0-0.2) 10^3/uL PT (9.3-11.0) sec INR (0.9-1.1) APTT (21.0-27.5) sec VBG pH (7.31-7.41) VBG pCO2 (41-51) mmHg VBG pO2 mmHg VBG HCO3 (23-28) mmol/L VBG Total CO2 (24-29) mmol/L VBG O2 Saturation % VBG Base Excess (-2-3) mmol/L VBG Lactate (0.6-1.4) mmol/L Sodium (136-145) mmol/L Potassium (3.5-5.1) mmol/L Chloride (98-107) mmol/L Carbon Dioxide (21.0-32.0) mmol/L Anion Gap (3-11) mmol/L BUN (7-18) mg/dL Creatinine (0.55-1.02) mg/dL Est GFR (CKD-EPI 2020) (mL/min/1.73m2) Glucose (74-106) mg/dL Calcium (8.5-10.1) mg/dL Phosphorus (2.6-4.7) mg/dL 11.0 H Magnesium (1.8-2.4) mg/dL Total Bilirubin (0.2-1.0) mg/dL AST (15-37) U/L ALT (14-59) U/L Alkaline Phosphatase (46-116) U/L Troponin I (<or=60) ng/L Total Protein (6.4-8.2) g/dL Albumin (3.4-5.0) g/dL Lipase TSH Salicylates (<2.8) mg/dL 5.7 Acetaminophen (10-30) ug/mL < 2 Ethyl Alcohol COVID-19 Source SARS-CoV-2 (PCR) (Negative) Patient ABO/Rh Antibody Screen Crossmatch ECG Data Attestation: I personally reviewed and interpreted this ECG (s) as follows: Interpretation: rate of 97, sinus, normal axis, no STEMI. HPI General Mode of arrival: EMS . Date/Time Provider Initiated Documentation: 05/25/22 08:55 . Limitations to Documentation: altered mental status (pt drowsy) . Information obtained by: patient and EMS . HPI Narrative: Patient is a 51-year-old female with a history of opiate addiction and alcohol abuse, diabetes, hypertension, hyperlipidemia, COPD, schizophrenia, anxiety, dep ression, PTSD presents for hematemesis. EMS reported patient has been vomiting blood since overnight. Report of large amount of hematemesis are seen. Approximately 10 cc of hematemesis in route per EMS. Patient was noted to be hypotensive in route with systolic blood pressure in the 80s and appeared lethargic. There is also report of alcohol bottles on scene. Related Data Home Medications Medication Instructions Recorded Confirmed epinephrine 0.3 mg/0.3 mL 0.3 mg IM ONCE #1 pen 04/01/13 03/20/22 injection, auto-injector (EpiPen 2-Tejinder) blood-glucose meter (FreeStyle #1 ea 12/09/19 03/03/22 Lite Meter kit) clotrimazole 1 % topical cream 1 applic topical BID #28 grams 09/20/20 03/20/22 mupirocin 2 % topical ointment 1 applic topical TID PRN skin 09/20/20 03/20/22 infection #22 grams methadone 10 mg/5 mL oral solution 22 mg PO DAILY 11/15/20 05/26/22 albuterol sulfate 2.5 mg/0.5 mL 5 mg inhalation Q6H PRN shortness 12/31/20 03/20/22 solution for nebulization of breath or wheezing #30 ea albuterol sulfate 90 mcg/actuation 2 puff inhalation QID PRN 12/31/20 03/20/22 aerosol inhaler shortness of breath or wheezing #3 ea sennosides 8.6 mg capsule (senna) 8.6 mg PO BID PRN constipation #60 12/31/20 03/20/22 caps diclofenac potassium 50 mg tablet 50 mg PO TID PRN leg pain #30 tabs 02/09/21 03/20/22 cholecalciferol (vitamin D3) 25 25 mcg PO DAILY #90 caps 08/29/21 03/20/22 mcg (1,000 unit) capsule docusate sodium 100 mg capsule 100 mg PO BID #180 caps 10/25/21 03/20/22 (Colace) lisinopril 20 mg tablet 20 mg PO DAILY #90 tabs 10/25/21 03/03/22 miconazole nitrate 2 % topical 1 applic topical BID PRN vaginitis 10/25/21 03/20/22 cream #28 grams nicotine 14 mg/24 hr daily 1 patch transdermal DAILY #28 ea 10/25/21 03/20/22 transdermal patch omeprazole 40 mg capsule,delayed 40 mg PO DAILY #90 caps 10/25/21 03/20/22 release Novolog Flexpen U-100 Insulin 100 See Rx Instructions .Route 02/22/22 03/20/22 unit/mL (3 mL) subcutaneous .COMPLEX #15 mL (insulin aspart U-100) lancets 28 gauge (FreeStyle #400 ea 03/03/22 03/03/22 Lancets) ondansetron HCl 4 mg tablet 4 mg PO DAILY PRN nausea and 03/03/22 03/20/22 vomiting #10 tabs terbinafine HCl 1 % topical cream 1 applic topical BID #30 grams 03/03/22 03/20/22 (Lamisil AT) triamcinolone acetonide 0.1 % 1 applic topical BID #80 grams 03/03/22 03/20/22 topical ointment blood sugar diagnostic (Blood #400 strips 03/15/22 Glucose Test strips) insulin glargine 100 unit/mL (3 40 unit (0.4 mL) subcut QHS #30 mL 03/15/22 03/20/22 mL) subcutaneous pen pen needle, diabetic 31 gauge x #200 ea 03/15/22 1/ atorvastatin 20 mg tablet 20 mg PO DAILY #90 tabs 03/28/22 ondansetron 4 mg disintegrating 4 mg PO DAILY #10 tabs 04/05/22 tablet lorazepam 1 mg tablet 1 mg PO DAILY PRN anxiety #10 tabs 05/03/22 Previous Rx's Medication Instructions Recorded blood-glucose meter (FreeStyle #1 ea 12/09/19 Lite Meter kit) clotrimazole 1 % topical cream 1 applic topical BID #28 grams 09/20/20 mupirocin 2 % topical ointment 1 applic topical TID PRN skin 09/20/20 infection #22 grams albuterol sulfate 2.5 mg/0.5 mL 5 mg inhalation Q6H PRN shortness 12/31/20 solution for nebulization of breath or wheezing #30 ea albuterol sulfate 90 mcg/actuation 2 puff inhalation QID PRN 12/31/20 aerosol inhaler shortness of breath or wheezing #3 ea sennosides 8.6 mg capsule (senna) 8.6 mg PO BID PRN constipation #60 12/31/20 caps diclofenac potassium 50 mg tablet 50 mg PO TID PRN leg pain #30 tabs 02/09/21 cholecalciferol (vitamin D3) 25 25 mcg PO DAILY #90 caps 08/29/21 mcg (1,000 unit) capsule docusate sodium 100 mg capsule 100 mg PO BID #180 caps 10/25/21 (Colace) lisinopril 20 mg tablet 20 mg PO DAILY #90 tabs 10/25/21 miconazole nitrate 2 % topical 1 applic topical BID PRN vaginitis 02/01/22 cream #28 grams nicotine 14 mg/24 hr daily 1 patch transdermal DAILY #28 ea 10/25/21 transdermal patch omeprazole 40 mg capsule,delayed 40 mg PO DAILY #90 caps 10/25/21 release Novolog Flexpen U-100 Insulin 100 See Rx Instructions .Route 02/22/22 unit/mL (3 mL) subcutaneous .COMPLEX #15 mL (insulin aspart U-100) lancets 28 gauge (FreeStyle #400 ea 03/03/22 Lancets) ondansetron HCl 4 mg tablet 4 mg PO DAILY PRN nausea and 03/03/22 vomiting #10 tabs terbinafine HCl 1 % topical cream 1 applic topical BID #30 grams 03/03/22 (Lamisil AT) triamcinolone acetonide 0.1 % 1 applic topical BID #80 grams 03/03/22 topical ointment blood sugar diagnostic (Blood #400 strips 03/15/22 Glucose Test strips) insulin glargine 100 unit/mL (3 40 unit (0.4 mL) subcut QHS #30 mL 03/15/22 mL) subcutaneous pen pen needle, diabetic 31 gauge x #200 ea 03/15/22 1/3 atorvastatin 20 mg tablet 20 mg PO DAILY #90 tabs 03/28/22 ondansetron 4 mg disintegrating 4 mg PO DAILY #10 tabs 04/05/22 tablet lorazepam 1 mg tablet 1 mg PO DAILY PRN anxiety #10 tabs 05/03/22 Allergies Allergy/AdvReac Type Severity Reaction Status Date / Time venom-honey bee Allergy Intermediate Verified 03/20/22 06:40 [bee venom (honey bee)] Sulfa (Sulfonamide Allergy Rash & Verified 03/20/22 06:40 Antibiotics) Shortness of Breath hydroxyzine HCl AdvReac Intermediate nausea/vomiting, Verified 03/20/22 06:40 [From Vistaril] palpitations General Stated Complaint: AMS/LOC LAURIE: 2 Review of Systems All systems reviewed & are unremarkable except as noted in HPI and below Constitutional Constitutional: Denies chills, Denies excessive sweating, Denies fatigue, Denies fever(s), Denies weakness and Denies weight loss Eyes Eyes: Reports system reviewed and no additional complaints, except as documented and Denies blurry vision ENT Ears, Nose, Mouth, and Throat: Denies vertigo, Denies dizziness, Denies otalgia, Denies nasal congestion, Denies sore throat and Denies throat swelling Cardiovascular Cardiovascular: Denies chest pain, Denies syncope, Denies rapid heart rate and Denies dyspnea Respiratory Respiratory: Denies chest congestion, Denies cough, Denies pain on inspiration and Denies dyspnea Gastrointestinal Gastrointestinal: Denies abdominal pain, Denies diarrhea and Reports hematemesis Genitourinary Genitourinary: Denies hematuria, Denies dysuria and Denies flank pain Musculoskeletal Musculoskeletal: Denies back pain and Denies joint swelling Integumentary/Breasts Skin/Breast: Denies lesions and Denies rash Neurologic Neurologic: Denies behavioral changes, Denies confusion, Denies vertigo, Denies dizziness, Denies syncope, Denies localized weakness and Denies weakness Psychiatric Psychiatric: Denies behavioral changes, Denies confusion and Denies depression Endocrine Endocrine: Denies excessive sweating and Denies fatigue Hematologic/Lymphatic Hematologic/Lymphatic: Denies easy bruising and Denies lymphadenopathy Allergic/Immunologic Allergic/Immunologic: Denies throat swelling PFSH All Active Problems (Updated 05/26/22 @ 09:26 by Jacky Galo MD) Alcoholism (Acute) Acute upper GI bleeding (Acute) Acute hypotension (Acute) Altered mental status (Acute) Nausea (Acute) Chronic nausea-occasional use of generic Zofran. She knows to use this sparingly-aware of side effects potentially with methadone Substance abuse (Acute) History of opiate abuse, more remotely benzodiazepine abuse, followed by [facility] in [place], on methadone Hyperlipidemia (Acute) Anxiety (Chronic) 2021-Drug contract with [facility], PMS queried, plan is only occasional exam lorazepam for panic attack, reviewed with [facility] clinic Plan is a limit of 10/month of lorazepam Patient already has Narcan at home 01/31/2022 patient given 1 refill of 10 tabs by phone, she will need an office visit for any further refills Hypertension (Chronic) Abscess of finger (Acute) Distal radius fracture, right (Acute) Internal derangement of right knee (Acute 11/14/20) Type 2 diabetes mellitus with hypoglycemic insulin reaction (Acute) OMID (acute kidney injury) (Acute) Pneumonia (Acute) Lack of intravenous access (Acute) DKA (diabetic ketoacidoses) (Acute) Diabetic nephropathy (Chronic 02/01/15) Elevated serum creatinine (Acute 02/01/15) Medical History Alcohol abuse Alcohol dependence in remission Anxiety Cellulitis of left hand (02/01/15) a. secondary to cat bite vs. IVDU b. has 13 cats at home c. denies ongoing IVDU at this time Closed fracture of distal end of right fibula (10/04/16) Constipation COPD (chronic obstructive pulmonary disease) Current smoker (02/01/15) x 29 years Depressive disorder Diabetes mellitus, type II a. chronic noncompliance b. multiple episodes of admission for [facility] c. ? 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 Hyperlipemia Hyperlipidemia statin started Non compliance with medical treatment (02/01/15) Panic disorder PTSD (post-traumatic stress disorder) Schizophrenia Umbilical hernia, incarcerated Ventral hernia without obstruction or gangrene Social History Smoking/Tobacco Use Status: Current every day Tobacco Type: cigarettes Smoking risk assessment performed?: Yes Alcohol Intake: current Alcohol Intake frequency: 0-2 drinks per day Drug use: Current Sobriety Substance use type: does not use Details: drank twisted tea today Current gender identity: female Do you feel safe at home: Yes Do you feel safe in your relationship?: Yes Additional Social history: Ms. Higginbotham has a significant other in the form of a boyfriend. Her only child, a son, reportedly over the last 1 1/2 years. Continued tobacco use. 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 Intermitted EtOH use. Exam Const General: cooperative and lethargic [facility] Head: normal to inspection Ears: hearing grossly normal bilaterally and external ears normal General nose exam: external nose normal Face and sinus: normal facial exam Mouth: oral mucosae normal Teeth and gingiva: edentulous Eyes General: appearance normal, both eyes and all related structures Eyelids: eyelids normal Pupils: PERRL EOM: EOM intact bilaterally Neck Neck: normal visual inspection Lymphatic: no lymphadenopathy noted Chest Chest: normal inspection of the chest Resp Effort & Inspection: normal respiratory effort and able to speak in complete sentences Auscultation: clear to auscultation bilaterally Cardio Rate: tachycardic Rhythm: regular rhythm GI Inspection: normal to inspection Palpation: soft, not firm, no guarding, no hepatosplenomegaly, no masses and tender (minimally tender throughout) Auscultation: hypoactive bowel sounds Back/Spine/Pelvis Back: no CVA tenderness Skin General skin exam: no rashes or lesions noted Neuro General: patient alert and patient awake Cognition: normal cognition Speech: speech normal Gait: normal gait Motor: muscle tone normal throughout Sensory Exam: no sensory deficits noted Extrem General: normal to inspection, full ROM and capillary refill normal Psych Appearance: grossly normal Mental Status: mental status grossly normal Speech and Movement: speech and movement normal Affect: normal affect Thought Process: normal Course Vital Signs Vital signs: Vital Signs Temperature 99.0 F 05/25/22 08:51 Pulse 100 H 05/25/22 08:51 Respiratory Rate 23 05/25/22 08:51 Blood Pressure 105/53 L 05/25/22 08:51 Pulse Oximetry 100 05/25/22 08:51 Temperature 99.0 F 05/25/22 08:51 Temperature Source Tympanic 05/25/22 08:51 Pulse 100 H 05/25/22 08:51 Respiratory Rate 23 05/25/22 08:51 Blood Pressure 105/53 L 05/25/22 08:51 Blood Pressure Position Sitting 05/25/22 08:51 Pulse Oximetry 100 05/25/22 08:51 Oxygen Delivery Method Room Air 05/25/22 08:51 Oxygen Flow Rate 0 05/25/22 08:51 Critical Care Time Critical Care Time Critical Care Time: Yes Total Critical Care Time: 90 Attestation: I spent 90 minutes of critical care time with this patient. This does not include time spent on separately reported billable procedures.
[2022-05-25] MEDS: Prochlorperazine 10 MG/2 ML VIAL IVP (09:09)
[2022-05-25] MEDS: Naloxone 0.4 MG/ML VIAL IVP ×2 (09:10→15:53)
[2022-05-25 09:13] LABS: HCO3 (Venous) 7 mmol/L (23-28); O2 Sat (Venous) 60 %; TCO2 (Venous) 7 mmol/L (24-29); pCO2 (Venous) 23 mmHg (41-51); pO2 (Venous) 41 mmHg
[2022-05-25 09:14] LABS: Source Nasal/Nares
--- NOTE | 2022-05-25 09:15 | RT.EKG_ITS ---
APPROVED REPORT Exam: Resting ECG Reason for Exam: vomiting blood, hyperglycemic Patient Location: I HR:97 bpm ECG Measurements Heart Rate 97 AXIS NJ 138 P 59 QRSd 91 QRS 28 QT 379 T 51 QTc 483 Conclusion Sinus rhythm...normal P axis, V-rate 60- 99 Probable left atrial enlargement...P >50mS, <-0.10mV V1. Sinus. Normal axis. No STEMI. I have reviewed and interpreted ECG and agree with software generated interpretation.
[2022-05-25 09:16] LABS: Abs Immature Grans 0.09 10^3/uL (0.0-0.06); Absolute Basophil Count 0.02 10^3/uL (0.0-0.2); Absolute Lymphocyte Count 0.85 10^3/uL (1.2-3.4); Absolute Monocyte Count 0.31 10^3/uL (0.1-0.8); Absolute Neutrophil Count 10.76 10^3/uL (1.2-6.7); Basophils % 0.2; HCT 49.2 % (36.0-46.0); Immature Grans % 0.7; Lymphocytes % 7.1; MCHC 30.5 % (32.0-36.0); MCV 89 fL (80-95); MPV 10.7 fL (8.0-11.0); Monocytes % 2.6; Neutrophils % 89.4; Platelet Count 299 10^3/uL (130-400); RBC 5.56 10^6/uL (3.93-5.22); RDW 14.4 % (11.7-14.6); RDW-SD 46.6 fL; WBC 12.04 10^3/uL (4.4-10.8)
[2022-05-25] MEDS: LORazepam 20 MG/10 ML VIAL IVP ×2 (09:16→09:35)
[2022-05-25 09:18] LABS: Lactate 6.7 mmol/L (0.6-1.4)
[2022-05-25 09:29] LABS: PTT Activated 20.4 sec (21.0-27.5); Prothrombin Time 9.8 sec (9.3-11.0)
[2022-05-25] MEDS: Pantoprazole 40 MG VIAL 80 MG IVP (09:30)
[2022-05-25] MEDS: Lactated Ringers 1,000 ML 1000 ML IV (09:41)
[2022-05-25 09:42] LABS: Salicylate 5.7 mg/dL (<2.8)
[2022-05-25 09:43] LABS: Acetaminophen < 2 ug/mL (10-30)
[2022-05-25 09:46] LABS: ALT 25 U/L (14-59); AST 13 U/L (15-37); Albumin 4.3 g/dL (3.4-5.0); Alkaline Phosphatase 92 U/L (46-116); BUN 57 mg/dL (7-18); Bilirubin, Total 0.9 mg/dL (0.2-1.0); Calcium 9.7 mg/dL (8.5-10.1); Chloride 85 mmol/L (98-107); ETHANOL BLOOD < 3.0 mg/dL (<10); Estimated GFR 13.32 (mL/min/1.73m2); Lipase 336 U/L (73-393); Magnesium 2.7 mg/dL (1.8-2.4); Potassium 5.4 mmol/L (3.5-5.1); Sodium 135 mmol/L (136-145); TSH (W/Ref FT4) 1.14 uIU/mL (0.36-3.74); Total Protein 8.3 g/dL (6.4-8.2); Troponin I < 50 ng/L (<or=60)
[2022-05-25 09:48] LABS: CREATININE 3.9 mg/dL (0.55-1.02); Glucose 968 mg/dL (74-106)
[2022-05-25 09:53] LABS: COVID-19 PCR Negative (Negative)
[2022-05-25] MEDS: MORPHine 10 MG/ML VIAL 2 MG IVP (10:30)
[2022-05-25] MEDS: Insulin REGULAR-Human 100 UNITS/ML UNIT 8 UNITS IV (10:30)
[2022-05-25] MEDS: INSULIN REGULAR IN 0.9 % NACL 100 UNIT/100 ML BAG 8.66 UNIT IV (10:44)
[2022-05-25] MEDS: MORPHine 4 MG/ML SYR 2 MG IM (11:22)
[2022-05-25] MEDS: Normal Saline 1,000 ML 1000 ML IV ×2 (11:40→12:47)
--- NOTE | 2022-05-25 12:52 | W.ANESVAS ---
Central Venous Line Placement Date Performed: 05/25/22 Procedure Time: 12:00 Procedure Location: Emergency Department Requesting Provider: Mayi Todd Standard Monitors Applied: ECG, Blood Pressure and SpO2 Pt. Position: Supine Timeout Performed: No Sedation Given (Indicate Dose Given): No Sedation given Patient Mental Status: Other Sterility: Hand Hygiene, Surgical Cap, Surgical Mask, Sterile Gloves, Sterile Drape/Sheet, Sterile Gown, Eye Protection and Chlorhexidine Laterality: Right Insertion Site: Internal Jugular (IJ) Central Line Type: Triple Lumen Catheter Insertion Procedure: 1% Lidocaine to skin and subcutaneous tissue with 25g needle, Vessel accessed with catheter over needle, catheter advanced, Guidewire placed with ease, Extension tubing fills with blood, then empties easily with gravity, Dermatotomy (skin ham) made with scalpel, Dilator placed without resistance, Introducer/Catheter placed without resistance, Guidewire removed and Claves placed, blood withdrawn, ports flushed and clamped Dressing: Sorbaview Dressing Placed and BioPatch Catheter Depth at Skin (cm): 14 Placement Confirmation: Confirmation X-Ray Ordered and Urgently Used, all ports flush with venous blood return noted Ultrasound: Sterile probe cover and gel used Ultrasound Image Saved?: No Number of Attempts (See previous attempts in note section): 1 Procedure Tolerated: No Complications Procedure Outcome: Successful Procedure Comment: guide wire seen in short and long axis with in the IJ, negative rapid IV flush seen in LV, and once dressed there was a venous waveform with pressure tubing/cable on the monitor. Performed By: Doug Wiggins
[2022-05-25] MEDS: PANTOPRAZOLE 80 MG in Normal Saline 100 ML 10 MG IV (14:00)
[2022-05-25 14:15] LABS: Anion Gap 42.5 mmol/L (3-11); BUN 63 mg/dL (7-18); CO2 5.5 mmol/L (21.0-32.0); Chloride 90 mmol/L (98-107); Estimated GFR 11.85 (mL/min/1.73m2); Potassium 4.4 mmol/L (3.5-5.1); Sodium 138 mmol/L (136-145)
[2022-05-25 14:17] LABS: CREATININE 4.3 mg/dL (0.55-1.02); Glucose 907 mg/dL (74-106)
[2022-05-25 14:20] LABS: HCT 43.7 % (36.0-46.0); HGB 13.4 g/dL (11.2-15.7)
[2022-05-25 14:25] LABS: Bilirubin Small (Negative); Blood Negative (Negative); Clarity Sl Cloudy (Clear); Glucose 500 mg/dL (Negative); Ketones 80 mg/dL (Negative); Leukocyte Esterase Negative (Negative); Nitrite Negative (Negative); Specific Gravity 1.025 (1.005-1.025); Urobilinogen 0.2 EU/dL (Up TO 0.2); pH 5.5 (5-8)
--- NOTE | 2022-05-25 14:31 | W.PM.HP.N ---
Date of service: 05/25/22 Time of Service: 14:31 Assessment and Plan Assessment and plan (1) DKA (diabetic ketoacidosis): Status: Acute Assessment and plan: Continue aggressive IV fluid hydration correct her electrolyte abnormalities including her potassium, continue insulin drip per [place] protocol. Monitor blood sugars every hour and BMP every 3 hours. Critical care time spent interviewing and examining the patient, reviewing studies, discussing case with patient's nurse and consulting physicians was 60 minutes (2) Acute upper GI bleeding: Status: Acute Assessment and plan: Keep n.p.o. continue IV Protonix drip. Surgical consultation is already been obtained with Dr. Huston we will plan for an EGD once she is medically stable. (3) Acute hypotension: Status: Acute Assessment and plan: Acute hypotension has resolved with IV fluids and transfusion. We will continue to monitor her in the intensive care unit. She is now off the norepinephrine drip. (4) Altered mental status: Status: Acute Assessment and plan: Acute mental status change appears to be acute although the given some history that the patient for past severeal weeks she has been hallucinating thinking she is suppose to be to God and that she had been raped by a demonic animal. According to her she has not been medicated for her schizophrenia since she was in nursing home (which was mid ). She has refused treatment. (5) Substance abuse: Status: Acute Assessment and plan: patient has been a client at [facility] and is on methadone 25 mg daily (6) Diabetic nephropathy: Status: Chronic Assessment and plan: she has baseline of creatinine of 1.0 (as of 09/28/21). (7) OMID (acute kidney injury): Status: Acute Assessment and plan: secondary to hypotension, GI bleed; no evidence for acute infection (per she has had no fever, cough or rigors) (8) Alcoholism: Status: Acute Assessment and plan: patient normally drinks 48 to 72 ounces of beer or twisted tea per day but has not drank in past 3 days as she has been repenting so God will accept her as his bride. We will cover for possible alcohol withdrawal, provide MVS/thiamine/folic acid and benzodiazepine protocol (she is on methadone which contra-inidcates for use of phenobarbital) History of Present Illness Narrative: 51-year-old female with type 2 diabetes mellitus for last 15 years presently requiring insulin long-term, essential pretension, hyperlipidemia, COPD, depression, PTSD, schizophrenia, alcohol abuse, opiate abuse currently in remission controlled with daily methadone presented emergency department with lethargy and generalized weakness and elevated blood sugars. According to her couple days ago she was having hypoglycemia and required EMS to come out to the house and give her amps of dextrose. Beginning last night around 2 AM she was becoming more nausea but no vomiting until this morning when she had an episode of hematemesis of dark brown-colored emesis. EMS found her glucose to be 500. Upon arrival to emergency department she was tachycardic in the 120s blood pressure was 114/81. She was restless and agitated was given Ativan. Initial hemoglobin is 15 g. ED provider called Dr. Huston, general surgeon on-call as it was felt patient had acute GI bleed they recommended TXA but hold off on blood transfusion. Subsequent labs showed that she was in diabetic ketoacidosis with a lactate of 6.7 anion gap of 42 bicarbonate 7 and pH 7.1 and a glucose of 968. She was also found to be in acute renal failure with a creatinine 3.9. Nasal PCR for COVID-19 was negative. Drug tox screen was negative for salicylates acetaminophen and alcohol. While the emergency department she became hypotensive blood pressure 87/46 and then went down into the 50s systolic over 30s diastolic requiring further fluid boluses. She was started on epinephrine and was transfused 1 unit packed red cells she was also given Narcan to reverse the morphine she had received. She is now admitted to the intensive care unit on insulin drip receiving IV fluids. Blood glucose is still in the 900s and a repeat BMP continues to show an anion gap is elevated at 42.5 and a CO2 level of 5.5. Dr. Huston's been consulted regarding GI bleed. Review of Systems Unobtainable due to mental condition [facility] All Active Problems (Updated 05/25/22 @ 16:20 by Jacky Galo MD) Alcoholism (Acute) DKA (diabetic ketoacidosis) (Acute) Acute upper GI bleeding (Acute) Acute hypotension (Acute) Altered mental status (Acute) Nausea (Acute) Chronic nausea-occasional use of generic Zofran. She knows to use this sparingly-aware of side effects potentially with methadone Substance abuse (Acute) History of opiate abuse, more remotely benzodiazepine abuse, followed by [facility] clinic in [place], on methadone Hyperlipidemia (Acute) Anxiety (Chronic) 2021-Drug contract with [employer] [facility] queried, plan is only occasional exam lorazepam for panic attack, reviewed with [facility] clinic Plan is a limit of 10/month of lorazepam Patient already has Narcan at home 01/31/2022 patient given 1 refill of 10 tabs by phone, she will need an office visit for any further refills Hypertension (Chronic) Abscess of finger (Acute) Distal radius fracture, right (Acute) Internal derangement of right knee (Acute 11/14/20) Type 2 diabetes mellitus with hypoglycemic insulin reaction (Acute) OMID (acute kidney injury) (Acute) Pneumonia (Acute) Lack of intravenous access (Acute) DKA (diabetic ketoacidoses) (Acute) Diabetic nephropathy (Chronic 02/01/15) Elevated serum creatinine (Acute 02/01/15) Medical History (Updated 05/25/22 @ 16:20 by Jacky Galo MD) Alcohol abuse Alcohol dependence in remission Anxiety Cellulitis of left hand (02/01/15) a. secondary to cat bite vs. IVDU b. has 13 cats at home c. denies ongoing IVDU at this time Closed fracture of distal end of right fibula (10/04/16) Constipation COPD (chronic obstructive pulmonary disease) Current smoker (02/01/15) x 29 years Depressive disorder Diabetes mellitus, type II a. chronic noncompliance b. multiple episodes of admission for [facility] c. ? 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 Hyperlipemia Hyperlipidemia statin started Non compliance with medical treatment (02/01/15) Panic disorder PTSD (post-traumatic stress disorder) Schizophrenia Umbilical hernia, incarcerated Ventral hernia without obstruction or gangrene Social History Smoking/Tobacco Use Status: Current every day Tobacco Type: cigarettes Smoking risk assessment performed?: Yes Alcohol Intake: current Alcohol Intake frequency: 0-2 drinks per day Drug use: Current Sobriety Substance use type: does not use Details: drank twisted tea today Current gender identity: female Do you feel safe at home: Yes Do you feel safe in your relationship?: Yes Additional Social history: Ms. Higginbotham has a significant other in the form of a boyfriend. Her only child, a son, reportedly over the last 1 1/2 years. Continued tobacco use. 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 Intermitted EtOH use. Meds Allergies and Home Medications Allergies Allergy/AdvReac Type Severity Reaction Status Date / Time venom-honey bee Allergy Intermediate Verified 03/20/22 06:40 [bee venom (honey bee)] Sulfa (Sulfonamide Allergy Rash & Verified 03/20/22 06:40 Antibiotics) Shortness of Breath hydroxyzine HCl AdvReac Intermediate nausea/vomiting, Verified 03/20/22 06:40 [From Vistaril] palpitations Home Medications Medication Instructions Recorded Confirmed Type epinephrine 0.3 mg/0.3 mL 0.3 mg IM ONCE #1 pen 04/01/13 03/20/22 History injection, auto-injector (EpiPen 2-Tejinder) blood-glucose meter (FreeStyle #1 ea 12/09/19 03/03/22 Rx Lite Meter kit) clotrimazole 1 % topical cream 1 applic topical BID #28 grams 09/20/20 03/20/22 Rx mupirocin 2 % topical ointment 1 applic topical TID PRN skin 09/20/20 03/20/22 Rx infection #22 grams methadone 10 mg/5 mL oral solution 25 mg PO DAILY 11/15/20 03/20/22 History albuterol sulfate 2.5 mg/0.5 mL 5 mg inhalation Q6H PRN shortness 12/31/20 03/20/22 Rx solution for nebulization of breath or wheezing #30 ea albuterol sulfate 90 mcg/actuation 2 puff inhalation QID PRN 12/31/20 03/20/22 Rx aerosol inhaler shortness of breath or wheezing #3 ea sennosides 8.6 mg capsule (senna) 8.6 mg PO BID PRN constipation #60 12/31/20 03/20/22 Rx caps diclofenac potassium 50 mg tablet 50 mg PO TID PRN leg pain #30 tabs 02/09/21 03/20/22 Rx cholecalciferol (vitamin D3) 25 25 mcg PO DAILY #90 caps 08/29/21 03/20/22 Rx mcg (1,000 unit) capsule docusate sodium 100 mg capsule 100 mg PO BID #180 caps 10/25/21 03/20/22 Rx (Colace) lisinopril 20 mg tablet 20 mg PO DAILY #90 tabs 10/25/21 03/03/22 Rx miconazole nitrate 2 % topical 1 applic topical BID PRN vaginitis 10/25/21 03/20/22 Rx cream #28 grams nicotine 14 mg/24 hr daily 1 patch transdermal DAILY #28 ea 10/25/21 03/20/22 Rx transdermal patch omeprazole 40 mg capsule,delayed 40 mg PO DAILY #90 caps 10/25/21 03/20/22 Rx release Novolog Flexpen U-100 Insulin 100 See Rx Instructions .Route 02/22/22 03/20/22 Rx unit/mL (3 mL) subcutaneous .COMPLEX #15 mL (insulin aspart U-100) lancets 28 gauge (FreeStyle #400 ea 03/03/22 03/03/22 Rx Lancets) ondansetron HCl 4 mg tablet 4 mg PO DAILY PRN nausea and 03/03/22 03/20/22 Rx vomiting #10 tabs terbinafine HCl 1 % topical cream 1 applic topical BID #30 grams 03/03/22 03/20/22 Rx (Lamisil AT) triamcinolone acetonide 0.1 % 1 applic topical BID #80 grams 03/03/22 03/20/22 Rx topical ointment blood sugar diagnostic (Blood #400 strips 03/15/22 Rx Glucose Test strips) insulin glargine 100 unit/mL (3 40 unit (0.4 mL) subcut QHS #30 mL 03/15/22 03/20/22 Rx mL) subcutaneous pen pen needle, diabetic 31 gauge x #200 ea 03/15/22 Rx 1/3 atorvastatin 20 mg tablet 20 mg PO DAILY #90 tabs 03/28/22 Rx ondansetron 4 mg disintegrating 4 mg PO DAILY #10 tabs 04/05/22 Rx tablet lorazepam 1 mg tablet 1 mg PO DAILY PRN anxiety #10 tabs 05/03/22 Rx Exam Narrative Exam Narrative: Middle-aged female who is obtunded and required deep noxious stimulation to get her to moan and open her eyes. She is not following commands. HEENT she is edentulous pupils are pinpoint and minimally reactive no scleral icterus oropharynx without exudate or bleeding, nares without epistaxis Neck supple no JVD normal carotid pulses no adenopathy Lungs are clear to auscultation Heart is regular but tachycardic no murmur rub Abdomen is obese soft nondistended normal bowel sounds no palpable masses or bruits Extremities without peripheral cyanosis or edema. Pedal pulses are intact. Feet without any ulcerations Neuro exam nonfocal exam no facial asymmetry unable to assess EOMI, pupils are pinpoint minimally reactive, she has nonfocal movement all 4 extremities with painful stimulation. GCS is 8 (E2, V2, M4), Babinski is downgoing bilaterally Results Imaging Chest x-ray: report reviewed (No acute pulmonary findings on this single AP portable view of the chest. Scarring in the right lung base is unchanged from at least 2018. This patient had prior infiltrate at this location in March 2015 (with no evidence of recurrence of infiltrate at this time on this single view study)) EKG: image reviewed (EKG demonstrates normal sinus rhythm rate of [address] abnormalities diffusely) Labs Result diagrams: 05/25/22 15:45 05/25/22 13:50 Labs: Laboratory Results - last 24 hr 05/25/22 05/25/22 05/25/22 08:55 09:05 09:07 WBC RBC Hgb Hct MCV MCH MCHC RDW Plt Count MPV Immature Gran % Neutrophils % Lymphocytes % Monocytes % Eosinophils % Basophils % Nucleated RBC % Absolute Neutrophils Absolute Lymphocytes Absolute Monocytes Absolute Eosinophils Absolute Basophils PT INR APTT VBG pH 7.10 L* VBG pCO2 23 L VBG pO2 41 VBG HCO3 7 L VBG Total CO2 7 L VBG O2 Saturation 60 VBG Base Excess < -15 L VBG Lactate Sodium Potassium Chloride Carbon Dioxide Anion Gap BUN Creatinine Est GFR (CKD-EPI 2020) Glucose Calcium Phosphorus Magnesium Total Bilirubin AST ALT Alkaline Phosphatase Troponin I Total Protein Albumin Lipase Cancelled TSH Cancelled Urine Color Urine Clarity Urine pH Ur Specific [place] Urine Protein Urine Ketones Urine Blood Urine Nitrite Urine Bilirubin Urine Urobilinogen Ur Leukocyte Esterase Urine Glucose Salicylates Acetaminophen Ethyl Alcohol Cancelled COVID-19 Source SARS-CoV-2 (PCR) Patient ABO/Rh Antibody Screen Crossmatch 05/25/22 05/25/22 05/25/22 09:07 09:07 09:07 WBC 12.04 H RBC 5.56 H Hgb 15.0 Hct 49.2 H MCV 89 MCH 27.0 MCHC 30.5 L RDW 14.4 Plt Count 299 MPV 10.7 Immature Gran % 0.7 Neutrophils % 89.4 Lymphocytes % 7.1 Monocytes % 2.6 Eosinophils % 0.0 Basophils % 0.2 Nucleated RBC % 0.0 Absolute Neutrophils 10.76 H Absolute Lymphocytes 0.85 L Absolute Monocytes 0.31 Absolute Eosinophils 0.00 Absolute Basophils 0.02 PT INR APTT VBG pH VBG pCO2 VBG pO2 VBG HCO3 VBG Total CO2 VBG O2 Saturation VBG Base Excess VBG Lactate Sodium 135 L Potassium 5.4 H Chloride 85 L Carbon Dioxide 8.0 L Anion Gap 42.0 H BUN 57 H Creatinine 3.9 H* Est GFR (CKD-EPI 2020) 13.32 Glucose 968 H* Calcium 9.7 Phosphorus Magnesium 2.7 H Total Bilirubin 0.9 AST 13 L ALT 25 Alkaline Phosphatase 92 Troponin I < 50 Total Protein 8.3 H Albumin 4.3 Lipase 336 TSH 1.14 Urine Color Urine Clarity Urine pH Ur Specific [place] Urine Protein Urine Ketones Urine Blood Urine Nitrite Urine Bilirubin Urine Urobilinogen Ur Leukocyte Esterase Urine Glucose Salicylates Acetaminophen Ethyl Alcohol < 3.0 COVID-19 Source SARS-CoV-2 (PCR) Patient ABO/Rh A Positive Antibody Screen NEGATIVE Crossmatch See Detail 05/25/22 05/25/22 05/25/22 09:07 09:07 09:07 WBC RBC Hgb Hct MCV MCH MCHC RDW Plt Count MPV Immature Gran % Neutrophils % Lymphocytes % Monocytes % Eosinophils % Basophils % Nucleated RBC % Absolute Neutrophils Absolute Lymphocytes Absolute Monocytes Absolute Eosinophils Absolute Basophils PT 9.8 INR 1.0 APTT 20.4 L VBG pH VBG pCO2 VBG pO2 VBG HCO3 VBG Total CO2 VBG O2 Saturation VBG Base Excess VBG Lactate 6.7 H* Sodium Potassium Chloride Carbon Dioxide Anion Gap BUN Creatinine Est GFR (CKD-EPI 2020) Glucose Calcium Phosphorus Magnesium Total Bilirubin AST ALT Alkaline Phosphatase Troponin I Total Protein Albumin Lipase TSH Urine Color Urine Clarity Urine pH Ur Specific [place] Urine Protein Urine Ketones Urine Blood Urine Nitrite Urine Bilirubin Urine Urobilinogen Ur Leukocyte Esterase Urine Glucose Salicylates Acetaminophen Ethyl Alcohol COVID-19 Source Nasal/Nares SARS-CoV-2 (PCR) Negative Patient ABO/Rh Antibody Screen Crossmatch 05/25/22 05/25/22 05/25/22 09:07 09:07 13:50 WBC RBC Hgb Cancelled Hct Cancelled MCV MCH MCHC RDW Plt Count MPV Immature Gran % Neutrophils % Lymphocytes % Monocytes % Eosinophils % Basophils % Nucleated RBC % Absolute Neutrophils Absolute Lymphocytes Absolute Monocytes Absolute Eosinophils Absolute Basophils PT INR APTT VBG pH VBG pCO2 VBG pO2 VBG HCO3 VBG Total CO2 VBG O2 Saturation VBG Base Excess VBG Lactate Sodium Potassium Chloride Carbon Dioxide Anion Gap BUN Creatinine Est GFR (CKD-EPI 2020) Glucose Calcium Phosphorus 11.0 H Magnesium Total Bilirubin AST ALT Alkaline Phosphatase Troponin I Total Protein Albumin Lipase TSH Urine Color Urine Clarity Urine pH Ur Specific [place] Urine Protein Urine Ketones Urine Blood Urine Nitrite Urine Bilirubin Urine Urobilinogen Ur Leukocyte Esterase Urine Glucose Salicylates 5.7 Acetaminophen < 2 Ethyl Alcohol COVID-19 Source SARS-CoV-2 (PCR) Patient ABO/Rh Antibody Screen Crossmatch 05/25/22 05/25/22 05/25/22 13:50 14:05 14:13 WBC RBC Hgb 13.4 Hct 43.7 MCV MCH MCHC RDW Plt Count MPV Immature Gran % Neutrophils % Lymphocytes % Monocytes % Eosinophils % Basophils % Nucleated RBC % Absolute Neutrophils Absolute Lymphocytes Absolute Monocytes Absolute Eosinophils Absolute Basophils PT INR APTT VBG pH VBG pCO2 VBG pO2 VBG HCO3 VBG Total CO2 VBG O2 Saturation VBG Base Excess VBG Lactate Sodium 138 Potassium 4.4 D Chloride 90 L Carbon Dioxide 5.5 L Anion Gap 42.5 H BUN 63 H Creatinine 4.3 H* Est GFR (CKD-EPI 2020) 11.85 Glucose 907 H* Calcium 8.0 L Phosphorus Magnesium Total Bilirubin AST ALT Alkaline Phosphatase Troponin I Total Protein Albumin Lipase TSH Urine Color Yellow Urine Clarity Sl Cloudy Urine pH 5.5 Ur Specific [place] 1.025 Urine Protein Negative Urine Ketones 80 H Urine Blood Negative Urine Nitrite Negative Urine Bilirubin Small H Urine Urobilinogen 0.2 Ur Leukocyte Esterase Negative Urine Glucose 500 H Salicylates Acetaminophen Ethyl Alcohol COVID-19 Source SARS-CoV-2 (PCR) Patient ABO/Rh Antibody Screen Crossmatch Last Vital Signs Temp 37.2 C 05/25/22 08:51 Pulse 87 05/25/22 14:25 Resp 24 05/25/22 14:25 BP 83/57 L 05/25/22 14:25 Pulse Ox 100 05/25/22 14:25
[2022-05-25 14:43] LABS: *AMPHETAMINES SCREEN URINE Negative (Negative); *BARBITURATES SCREEN URINE Negative (Negative); *BENZODIAZEPINES SCREEN URINE Negative (Negative); Cannabinoids THC Negative (Negative); Cocaine Screen,Urine Negative (Negative); METHADONE URINE SCREEN Positive (Negative); OPIATES URINE SCREEN Negative (Negative)
[2022-05-25 14:45] LABS: Tricyclic Antidepressants Negative (Negative)
[2022-05-25] MEDS: Normal Saline Flush 10 ML SYR IVP (15:39)
[2022-05-25 15:52] LABS: HCO3 (Venous) 9 mmol/L (23-28); O2 Sat (Venous) 86 %; TCO2 (Venous) 9 mmol/L (24-29); pCO2 (Venous) 22 mmHg (41-51); pH (Venous) 7.23 (7.31-7.41); pO2 (Venous) 53 mmHg
[2022-05-25 15:55] LABS: HGB 13.3 g/dL (11.2-15.7)
[2022-05-25 15:56] LABS: Lactate 2.8 mmol/L (0.6-1.4)
[2022-05-25] MEDS: Sodium Bicarbonate 50 MEQ/50 ML SYR IVP (15:58)
[2022-05-25 16:07] LABS: BUN 63 mg/dL (7-18); Calcium 7.6 mg/dL (8.5-10.1); Chloride 97 mmol/L (98-107); Estimated GFR 12.92 (mL/min/1.73m2); Potassium 3.6 mmol/L (3.5-5.1); Sodium 139 mmol/L (136-145)
[2022-05-25 16:39] LABS: Glucose 827 mg/dL (74-106)
--- NOTE | 2022-05-25 17:00 | SCONE_ITS ---
Date of service: 05/25/22 Time of Service: 11:00 Assessment and Plan Assessment and plan (1) Alcoholism: Status: Acute Assessment and plan: naltrexone 6m in-pt treatment center] nutritional plna will engage un exercse dily Vitamin theraoy. yogo (2) DKA (diabetic ketoacidosis): Status: Resolved Assessment and plan: Glucose is 900+ Again plan on endoscopy once glucose has stabilized (3) Acute upper GI bleeding: Status: Resolved Assessment and plan: PPI drip and carafate -Plan on scoping once her renal function has returned. There is no signs of active bleeding at this time. Continue with medical management I do not see a role for aggressive transfusion or TXA and we will put this on hold and not activate massive transfusion protocol. Patient is well-known to our service and has been scoped many times. She still continues to drink alcohol incessantly. And certainly above recommended her right amounts. She also continues to have problems with her insulin dosing and sliding scale and often gets herself into DKA if she is medical stable for scope we can consider doing 1 if she had other symptomatology. If she has not had any other symptomatology since Sunday then I would say things are well-healed and she does not need to have another scope The most important thing she can do for herself to stop drinking alcohol. (4) Acute hypotension: Status: Acute Assessment and plan: This seems to be had brought on by her extreme level of DKA. This will be ma naged by medicine. (5) Altered mental status: Status: Resolved (6) Nausea: Status: Acute (7) Substance abuse: Status: Acute (8) Hyperlipidemia: Status: Acute (9) Anxiety: Status: Chronic (10) Hypertension: Status: Chronic Qualifiers: Hypertension type: essential hypertension Qualified Code(s): I10 - Essential (primary) hypertension (11) Type 2 diabetes mellitus with hypoglycemic insulin reaction: Status: Acute Assessment and plan: Informed consent is obtained for the procedural (explained in simple layman's terms that the pt. and/or family could understand) explaining risks vs benefits and alternatives to the procedure and consequences if we do not do the procedure and need/rational for the procedure. Risks include but are not limited to: bleeding, infection, perforation of esophagus, stomach, colon, small intestines, bronchus or trachea, or PTX. This would necessitate emergency surgery to repair the damage w/ possible ostomy; and other associated complications w/ the required surgery. Also complications of anesthesia including aspiration, MD/CVA/. If she is still having s/s concerning for Upper GI bleed, I would br happy to scope her. It looks as if her HGB as been stable through the weekend. She needs to take her meds appropriately nad stop using ETOH. (12) OMID (acute kidney injury): Status: Resolved (13) Lack of intravenous access: Status: Acute (14) DKA (diabetic ketoacidoses): Status: Acute (15) Diabetic nephropathy: Status: Chronic (16) Schizophrenia: Status: Suspected Qualifiers: Schizophrenia type: schizophreniform disorder Qualified Code(s): F20.81 - Schizophreniform disorder (17) Elevated serum creatinine: Status: Acute (18) Alcohol abuse: (19) Anxiety: (20) COPD (chronic obstructive pulmonary disease): (21) Current smoker: (22) Depressive disorder: (23) Diabetes mellitus, type II: (24) Drug addiction: (25) Hyperlipemia: (26) Hyperlipidemia: (27) Non compliance with medical treatment: (28) Panic disorder: History of Present Illness Narrative: Patient was admitted through the ER today. When she initially arrived in the ER she had been vomiting coffee-ground's at home. There was reported by EMS there is a large amount of blood in the home. She was hypotensive upon arrival. Patient did respond to fluid resuscitation in the emergency room. Her immediate lab returned did show a hemoglobin of 15 and a creatinine of 4. Blood and TXA were not initiated. PPI drip was initiated. She will be admitted to the ICU and the hospitalist will remain in charge of further fluid resuscitation and glucose control. When she is medically stable and that we will plan on EGD. Hopefully on 05/30. Not much information could be obtained from the patient. It was mostly taken from the chart of the family. Patient has a history of poorly controlled diabetes as well as heavy alcohol use. She has been in the hospital with alcoholic gastritis in the past. She apparently had not been taking her insulin appropriately and she has wound up in DKA. She is a heavy daily drinker. She also abruptly stopped drinking in the past 3 days and may be going into alcohol withdrawals as well. She is not vomiting blood in the ER. Nor she had any bloody stools. She certainly has background for a GI bleed. However given her recent comorbidities, I do feel like she needs to be stabilized and improve her renal function and then we can scope her at a later date. I see no signs of active bleeding that are causing her hypotension. We will continue to treat her medically and symptom support. Review of Systems Unobtainable due to mental condition PFS All Active Problems Discharge planning issues (Acute) DVT prophylaxis (Acute) Alcoholism (Acute) Acute hypotension (Acute) Nausea (Acute) Chronic nausea-occasional use of generic Zofran. She knows to use this sparingly-aware of side effects potentially with methadone Substance abuse (Acute) History of opiate abuse, more remotely benzodiazepine abuse, followed by [facility] in [place], on methadone Hyperlipidemia (Acute) Anxiety (Chronic) 2021-Drug contract with [employer] [facility], PMS queried, plan is only occasional exam lorazepam for panic attack, reviewed with [facility] clinic Plan is a limit of 10/month of lorazepam Patient already has Narcan at home 01/31/2022 patient given 1 refill of 10 tabs by phone, she will need an office visit for any further refills Hypertension (Chronic) Abscess of finger (Acute) Distal radius fracture, right (Acute) Internal derangement of right knee (Acute 11/14/20) Type 2 diabetes mellitus with hypoglycemic insulin reaction (Acute) Pneumonia (Acute) Lack of intravenous access (Acute) DKA (diabetic ketoacidoses) (Acute) Diabetic nephropathy (Chronic 02/01/15) Elevated serum creatinine (Acute 02/01/15) Medical History Alcohol abuse Alcohol dependence in remission Anxiety Cellulitis of left hand (02/01/15) a. secondary to cat bite vs. IVDU b. has 13 cats at home c. denies ongoing IVDU at this time Closed fracture of distal end of right fibula (10/04/16) Constipation COPD (chronic obstructive pulmonary disease) Current smoker (02/01/15) x 29 years Depressive disorder Diabetes mellitus, type II a. chronic noncompliance b. multiple episodes of admission for [facility] c. ? 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 Hyperlipemia Hyperlipidemia statin started Non compliance with medical treatment (02/01/15) Panic disorder PTSD (post-traumatic stress disorder) Schizophrenia Umbilical hernia, incarcerated Ventral hernia without obstruction or gangrene Social History Smoking/Tobacco Use Status: Current every day Tobacco Type: cigarettes Smoking risk assessment performed?: Yes Alcohol Intake: current Alcohol Intake frequency: 0-2 drinks per day Drug use: Current Sobriety Substance use type: does not use Details: drank twisted tea today Current gender identity: female Do you feel safe at home: Yes Do you feel safe in your relationship?: Yes Additional Social history: Ms. Higginbotham has a significant other in the form of a boyfriend. Her only child, a son, reportedly over the last 1 1/2 years. Continued tobacco use. 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 Intermitted EtOH use. Exam Const General: in distress, anxious, disheveled and ill appearing Nutritional Appearance: obese Limitations: altered mental status HENMT Ears: hearing grossly normal bilaterally Teeth and gingiva: other (nodentition.) Resp Effort & Inspection: normal respiratory effort and able to speak in complete sentences Auscultation: clear to auscultation bilaterally and crackles on the right in the lower lung [place] and on the left Other: crackles at basees, Cardio Rate: regular rate Rhythm: regular rhythm GI Inspection: obesity Auscultation: normal bowel sounds Results Last Vital Signs Temp 37.2 C 05/25/22 08:51 Pulse 97 H 05/25/22 16:46 Resp 27 H 05/25/22 16:46 BP 131/54 L 05/25/22 16:46 Pulse Ox 97 05/25/22 16:46 Labs Result diagrams: 05/27/22 19:20 05/27/22 05:20 Labs: Laboratory Results - last 24 hr 05/25/22 05/25/22 05/25/22 08:55 09:05 09:07 WBC RBC Hgb Hct MCV MCH MCHC RDW Plt Count MPV Immature Gran % Neutrophils % Lymphocytes % Monocytes % Eosinophils % Basophils % Nucleated RBC % Absolute Neutrophils Absolute Lymphocytes Absolute Monocytes Absolute Eosinophils Absolute Basophils PT INR APTT ABG Sample Site ABG pH ABG pCO2 ABG pO2 ABG HCO3 ABG Total CO2 ABG O2 Saturation ABG Base Excess VBG pH 7.10 L* VBG pCO2 23 L VBG pO2 41 VBG HCO3 7 L VBG Total CO2 7 L VBG O2 Saturation 60 VBG Base Excess < -15 L VBG Lactate Oxygen Liter Flow FiO2 Sodium Potassium Chloride Carbon Dioxide Anion Gap BUN Creatinine Est GFR (CKD-EPI 2020) Glucose Calcium Phosphorus Magnesium Total Bilirubin AST ALT Alkaline Phosphatase Troponin I Total Protein Albumin Lipase Cancelled TSH Cancelled Urine Color Urine Clarity Urine pH Ur Specific [place] Urine Protein Urine Ketones Urine Blood Urine Nitrite Urine Bilirubin Urine Urobilinogen Ur Leukocyte Esterase Urine Glucose Salicylates Urine Opiates Screen Urine Methadone Screen Acetaminophen Ur Barbiturates Screen Ur Tricyclics Screen Ur Amphetamines Screen U Benzodiazepines Scrn Urine Cocaine Screen Ur THC Screen Ethyl Alcohol Cancelled COVID-19 Source SARS-CoV-2 (PCR) Patient ABO/Rh Antibody Screen Crossmatch 05/25/22 05/25/22 05/25/22 09:07 09:07 09:07 WBC 12.04 H RBC 5.56 H Hgb 15.0 Hct 49.2 H MCV 89 MCH 27.0 MCHC 30.5 L RDW 14.4 Plt Count 299 MPV 10.7 Immature Gran % 0.7 Neutrophils % 89.4 Lymphocytes % 7.1 Monocytes % 2.6 Eosinophils % 0.0 Basophils % 0.2 Nucleated RBC % 0.0 Absolute Neutrophils 10.76 H Absolute Lymphocytes 0.85 L Absolute Monocytes 0.31 Absolute Eosinophils 0.00 Absolute Basophils 0.02 PT INR APTT ABG Sample Site ABG pH ABG pCO2 ABG pO2 ABG HCO3 ABG Total CO2 ABG O2 Saturation ABG Base Excess VBG pH VBG pCO2 VBG pO2 VBG HCO3 VBG Total CO2 VBG O2 Saturation VBG Base Excess VBG Lactate Oxygen Liter Flow FiO2 Sodium 135 L Potassium 5.4 H Chloride 85 L Carbon Dioxide 8.0 L Anion Gap 42.0 H BUN 57 H Creatinine 3.9 H* Est GFR (CKD-EPI 2020) 13.32 Glucose 968 H* Calcium 9.7 Phosphorus Magnesium 2.7 H Total Bilirubin 0.9 AST 13 L ALT 25 Alkaline Phosphatase 92 Troponin I < 50 Total Protein 8.3 H Albumin 4.3 Lipase 336 TSH 1.14 Urine Color Urine Clarity Urine pH Ur Specific [place] Urine Protein Urine Ketones Urine Blood Urine Nitrite Urine Bilirubin Urine Urobilinogen Ur Leukocyte Esterase Urine Glucose Salicylates Urine Opiates Screen Urine Methadone Screen Acetaminophen Ur Barbiturates Screen Ur Tricyclics Screen Ur Amphetamines Screen U Benzodiazepines Scrn Urine Cocaine Screen Ur THC Screen Ethyl Alcohol < 3.0 COVID-19 Source SARS-CoV-2 (PCR) Patient ABO/Rh A Positive Antibody Screen NEGATIVE Crossmatch See Detail 05/25/22 05/25/22 05/25/22 09:07 09:07 09:07 WBC RBC Hgb Hct MCV MCH MCHC RDW Plt Count MPV Immature Gran % Neutrophils % Lymphocytes % Monocytes % Eosinophils % Basophils % Nucleated RBC % Absolute Neutrophils Absolute Lymphocytes Absolute Monocytes Absolute Eosinophils Absolute Basophils PT 9.8 INR 1.0 APTT 20.4 L ABG Sample Site ABG pH ABG pCO2 ABG pO2 ABG HCO3 ABG Total CO2 ABG O2 Saturation ABG Base Excess VBG pH VBG pCO2 VBG pO2 VBG HCO3 VBG Total CO2 VBG O2 Saturation VBG Base Excess VBG Lactate 6.7 H* Oxygen Liter Flow FiO2 Sodium Potassium Chloride Carbon Dioxide Anion Gap BUN Creatinine Est GFR (CKD-EPI 2020) Glucose Calcium Phosphorus Magnesium Total Bilirubin AST ALT Alkaline Phosphatase Troponin I Total Protein Albumin Lipase TSH Urine Color Urine Clarity Urine pH Ur Specific [place] Urine Protein Urine Ketones Urine Blood Urine Nitrite Urine Bilirubin Urine Urobilinogen Ur Leukocyte Esterase Urine Glucose Salicylates Urine Opiates Screen Urine Methadone Screen Acetaminophen Ur Barbiturates Screen Ur Tricyclics Screen Ur Amphetamines Screen U Benzodiazepines Scrn Urine Cocaine Screen Ur THC Screen Ethyl Alcohol COVID-19 Source Nasal/Nares SARS-CoV-2 (PCR) Negative Patient ABO/Rh Antibody Screen Crossmatch 05/25/22 05/25/22 05/25/22 09:07 09:07 13:50 WBC RBC Hgb Cancelled Hct Cancelled MCV MCH MCHC RDW Plt Count MPV Immature Gran % Neutrophils % Lymphocytes % Monocytes % Eosinophils % Basophils % Nucleated RBC % Absolute Neutrophils Absolute Lymphocytes Absolute Monocytes Absolute Eosinophils Absolute Basophils PT INR APTT ABG Sample Site ABG pH ABG pCO2 ABG pO2 ABG HCO3 ABG Total CO2 ABG O2 Saturation ABG Base Excess VBG pH VBG pCO2 VBG pO2 VBG HCO3 VBG Total CO2 VBG O2 Saturation VBG Base Excess VBG Lactate Oxygen Liter Flow FiO2 Sodium Potassium Chloride Carbon Dioxide Anion Gap BUN Creatinine Est GFR (CKD-EPI 2020) Glucose Calcium Phosphorus 11.0 H Magnesium Total Bilirubin AST ALT Alkaline Phosphatase Troponin I Total Protein Albumin Lipase TSH Urine Color Urine Clarity Urine pH Ur Specific [place] Urine Protein Urine Ketones Urine Blood Urine Nitrite Urine Bilirubin Urine Urobilinogen Ur Leukocyte Esterase Urine Glucose Salicylates 5.7 Urine Opiates Screen Urine Methadone Screen Acetaminophen < 2 Ur Barbiturates Screen Ur Tricyclics Screen Ur Amphetamines Screen U Benzodiazepines Scrn Urine Cocaine Screen Ur THC Screen Ethyl Alcohol COVID-19 Source SARS-CoV-2 (PCR) Patient ABO/Rh Antibody Screen Crossmatch 05/25/22 05/25/22 05/25/22 13:50 14:05 14:05 WBC RBC Hgb Hct MCV MCH MCHC RDW Plt Count MPV Immature Gran % Neutrophils % Lymphocytes % Monocytes % Eosinophils % Basophils % Nucleated RBC % Absolute Neutrophils Absolute Lymphocytes Absolute Monocytes Absolute Eosinophils Absolute Basophils PT INR APTT ABG Sample Site ABG pH ABG pCO2 ABG pO2 ABG HCO3 ABG Total CO2 ABG O2 Saturation ABG Base Excess VBG pH VBG pCO2 VBG pO2 VBG HCO3 VBG Total CO2 VBG O2 Saturation VBG Base Excess VBG Lactate Oxygen Liter Flow FiO2 Sodium 138 Potassium 4.4 D Chloride 90 L Carbon Dioxide 5.5 L Anion Gap 42.5 H BUN 63 H Creatinine 4.3 H* Est GFR (CKD-EPI 2020) 11.85 Glucose 907 H* Calcium 8.0 L Phosphorus Magnesium Total Bilirubin AST ALT Alkaline Phosphatase Troponin I Total Protein Albumin Lipase TSH Urine Color Yellow Urine Clarity Sl Cloudy Urine pH 5.5 Ur Specific [place] 1.025 Urine Protein Negative Urine Ketones 80 H Urine Blood Negative Urine Nitrite Negative Urine Bilirubin Small H Urine Urobilinogen 0.2 Ur Leukocyte Esterase Negative Urine Glucose 500 H Salicylates Urine Opiates Screen Negative Urine Methadone Screen Positive A Acetaminophen Ur Barbiturates Screen Negative Ur Tricyclics Screen Negative Ur Amphetamines Screen Negative U Benzodiazepines Scrn Negative Urine Cocaine Screen Negative Ur THC Screen Negative Ethyl Alcohol COVID-19 Source SARS-CoV-2 (PCR) Patient ABO/Rh Antibody Screen Crossmatch 05/25/22 05/25/22 05/25/22 14:13 15:17 15:45 WBC RBC Hgb 13.4 13.3 Hct 43.7 41.0 MCV MCH MCHC RDW Plt Count MPV Immature Gran % Neutrophils % Lymphocytes % Monocytes % Eosinophils % Basophils % Nucleated RBC % Absolute Neutrophils Absolute Lymphocytes Absolute Monocytes Absolute Eosinophils Absolute Basophils PT INR APTT ABG Sample Site Cancelled ABG pH Cancelled ABG pCO2 Cancelled ABG pO2 Cancelled ABG HCO3 Cancelled ABG Total CO2 Cancelled ABG O2 Saturation Cancelled ABG Base Excess Cancelled VBG pH VBG pCO2 VBG pO2 VBG HCO3 VBG Total CO2 VBG O2 Saturation VBG Base Excess VBG Lactate Oxygen Liter Flow Cancelled FiO2 Cancelled Sodium Potassium Chloride Carbon Dioxide Anion Gap BUN Creatinine Est GFR (CKD-EPI 2020) Glucose Calcium Phosphorus Magnesium Total Bilirubin AST ALT Alkaline Phosphatase Troponin I Total Protein Albumin Lipase TSH Urine Color Urine Clarity Urine pH Ur Specific [place] Urine Protein Urine Ketones Urine Blood Urine Nitrite Urine Bilirubin Urine Urobilinogen Ur Leukocyte Esterase Urine Glucose Salicylates Urine Opiates Screen Urine Methadone Screen Acetaminophen Ur Barbiturates Screen Ur Tricyclics Screen Ur Amphetamines Screen U Benzodiazepines Scrn Urine Cocaine Screen Ur THC Screen Ethyl Alcohol COVID-19 Source SARS-CoV-2 (PCR) Patient ABO/Rh Antibody Screen Crossmatch 05/25/22 05/25/22 05/25/22 15:45 15:45 15:45 WBC RBC Hgb Hct MCV MCH MCHC RDW Plt Count MPV Immature Gran % Neutrophils % Lymphocytes % Monocytes % Eosinophils % Basophils % Nucleated RBC % Absolute Neutrophils Absolute Lymphocytes Absolute Monocytes Absolute Eosinophils Absolute Basophils PT INR APTT ABG Sample Site ABG pH ABG pCO2 ABG pO2 ABG HCO3 ABG Total CO2 ABG O2 Saturation ABG Base Excess VBG pH 7.23 L VBG pCO2 22 L VBG pO2 53 VBG HCO3 9 L VBG Total CO2 9 L VBG O2 Saturation 86 VBG Base Excess < -15 L VBG Lactate 2.8 H* Oxygen Liter Flow FiO2 Sodium 139 Potassium 3.6 Chloride 97 L Carbon Dioxide 11.0 L Anion Gap 31.0 H BUN 63 H Creatinine 4.0 H* Est GFR (CKD-EPI 2020) 12.92 Glucose 827 H* Calcium 7.6 L Phosphorus Magnesium Total Bilirubin AST ALT Alkaline Phosphatase Troponin I Total Protein Albumin Lipase TSH Urine Color Urine Clarity Urine pH Ur Specific [place] Urine Protein Urine Ketones Urine Blood Urine Nitrite Urine Bilirubin Urine Urobilinogen Ur Leukocyte Esterase Urine Glucose Salicylates Urine Opiates Screen Urine Methadone Screen Acetaminophen Ur Barbiturates Screen Ur Tricyclics Screen Ur Amphetamines Screen U Benzodiazepines Scrn Urine Cocaine Screen Ur THC Screen Ethyl Alcohol COVID-19 Source SARS-CoV-2 (PCR) Patient ABO/Rh Antibody Screen Crossmatch
[2022-05-25 18:23] LABS: Lactate 2.1 mmol/L (0.6-1.4)
[2022-05-25 18:41] LABS: Anion Gap 20.6 mmol/L (3-11); BUN 64 mg/dL (7-18); CO2 19.4 mmol/L (21.0-32.0); Calcium 7.7 mg/dL (8.5-10.1); Chloride 103 mmol/L (98-107); Estimated GFR 14.19 (mL/min/1.73m2); Potassium 3.8 mmol/L (3.5-5.1); Sodium 143 mmol/L (136-145)
[2022-05-25] MEDS: POTASSIUM CHLORIDE/0.9% NACL 1,000 ML 250 MEQ IV ×2 (18:41→22:51)
[2022-05-25 18:44] LABS: CREATININE 3.7 mg/dL (0.55-1.02); Glucose 616 mg/dL (74-106)
[2022-05-25 22:44] LABS: Anion Gap 8.4 mmol/L (3-11); BUN 57 mg/dL (7-18); CO2 28.6 mmol/L (21.0-32.0); CREATININE 3.2 mg/dL (0.55-1.02); Calcium 7.8 mg/dL (8.5-10.1); Chloride 111 mmol/L (98-107); Estimated GFR 16.89 (mL/min/1.73m2); Glucose 455 mg/dL (74-106); Potassium 4.5 mmol/L (3.5-5.1); Sodium 148 mmol/L (136-145)
[2022-05-26] VITALS (58 sets, daily range): BP systolic 116–174; BP diastolic 59–110; PULSE 61–89; RESP 11–27; TEMP 36.8–37.2; O2SAT 89–97
[2022-05-26] MEDS: INSULIN REGULAR IN 0.9 % NACL 100 UNIT/100 ML BAG 6 UNIT IV (00:55)
[2022-05-26] MEDS: PANTOPRAZOLE 80 MG in Normal Saline 100 ML 10 MG IV (00:55)
[2022-05-26 02:11] LABS: BUN 54 mg/dL (7-18); CREATININE 2.9 mg/dL (0.55-1.02); Calcium 7.9 mg/dL (8.5-10.1); Chloride 116 mmol/L (98-107); Estimated GFR 19.01 (mL/min/1.73m2); Glucose 315 mg/dL (74-106); Potassium 4.7 mmol/L (3.5-5.1); Sodium 151 mmol/L (136-145)
[2022-05-26] MEDS: DEXTROSE 5%-0.45% SALINE 1,000 ML 100 ML IV (02:43)
[2022-05-26 06:13] LABS: Abs Immature Grans 0.07 10^3/uL (0.0-0.06); Absolute Basophil Count 0.02 10^3/uL (0.0-0.2); Absolute Lymphocyte Count 1.15 10^3/uL (1.2-3.4); Absolute Neutrophil Count 13.16 10^3/uL (1.2-6.7); Basophils % 0.1; HGB 13.7 g/dL (11.2-15.7); Immature Grans % 0.5; Lymphocytes % 7.6; MCH 27.3 pg (27.0-33.0); MCHC 33.4 % (32.0-36.0); MCV 82 fL (80-95); MPV 10.8 fL (8.0-11.0); Monocytes % 5.1; Neutrophils % 86.7; Platelet Count 219 10^3/uL (130-400); RBC 5.01 10^6/uL (3.93-5.22); RDW 14.1 % (11.7-14.6); RDW-SD 41.6 fL; WBC 15.18 10^3/uL (4.4-10.8)
[2022-05-26 06:30] LABS: Absolute Monocyte Count 0.77 10^3/uL (0.1-0.8)
[2022-05-26 06:45] LABS: ALT 28 U/L (14-59); AST 43 U/L (15-37); Albumin 2.9 g/dL (3.4-5.0); Alkaline Phosphatase 68 U/L (46-116); Anion Gap 9.1 mmol/L (3-11); BUN 50 mg/dL (7-18); Bilirubin, Total 0.7 mg/dL (0.2-1.0); CO2 26.9 mmol/L (21.0-32.0); CREATININE 2.4 mg/dL (0.55-1.02); Chloride 117 mmol/L (98-107); Estimated GFR 23.85 (mL/min/1.73m2); Glucose 175 mg/dL (74-106); Magnesium 2.2 mg/dL (1.8-2.4); Sodium 153 mmol/L (136-145); Total Protein 6.1 g/dL (6.4-8.2)
--- NOTE | 2022-05-26 07:46 | NUR.NOTE ---
RN holds insulin drip for blood sugar of 88 per protocol for 30 mintues. RN will speak to MD about necessity to keep insulin drip going since anion gap is closed at 9.1 and blood sugar is now 88.Nursing Note:
[2022-05-26] MEDS: DEXTROSE 5%-WATER 1,000 ML 100 ML IV (08:52)
[2022-05-26] MEDS: MULTIVITAMIN 10 ML, THIAMINE 100 MG, FOLIC ACID 1 MG in DEXTROSE 5%-0.45% SALINE 1,000 ML 42 ML IV (09:02)
--- NOTE | 2022-05-26 09:04 | INITIAL_ITS ---
- If Service Date Differs Date of service: 05/26/22 Time of Service: 09:04 Care Management Initial Assess REASON FOR HOSPITALIZATION:: DKA PAST MEDICAL HISTORY/PAST SURGICAL HISTORY:: All Active Problems (Updated 05/25/22 @ 16:20 by Jacky Galo MD). Alcoholism (Acute). DKA (diabetic ketoacidosis) (Acute). Acute upper GI bleeding (Acute). Acute hypotension (Acute). Altered mental status (Acute). Nausea (Acute). Chronic nausea- occasional use of generic Zofran. She knows to use this sparingly-aware of side effects potentially with methadone. Substance abuse (Acute). History of opiate abuse, more remotely benzodiazepine abuse, followed by [facility] clinic in [place], on methadone. Hyperlipidemia (Acute). Anxiety (Chronic). 2021-Drug contract with [employer] PMS queried, plan is only occasional exam lorazepam for panic attack, reviewed with [facility] clinic. Plan is a limit of 10/month of lorazepam. Patient already has Narcan at home. 01/31/2022 patient given 1 refill of 10 tabs by phone, she will need an office visit for any further refills. Hypertension (Chronic). Abscess of finger (Acute). Distal radius fracture, right (Acute). Internal derangement of right knee (Acute 11/14/20). Type 2 diabetes mellitus with hypoglycemic insulin reaction (Acute). OMID (acute kidney injury) (Acute). Pneumonia (Acute). Lack of intravenous access (Acute). DKA (diabetic ketoacidoses) (Acute). Diabetic nephropathy (Chronic 02/01/15). Elevated serum creatinine (Acute 02/01/15). Medical History (Updated 05/25/22 @ 16:20 by Jacky Galo MD). Alcohol abuse. Alcohol dependence in remission. Anxiety. Cellulitis of left hand (02/01/15). a. secondary to cat bite vs. IVDU. b. has 13 cats at home. c. denies ongoing IVDU at this time. Closed fracture of distal end of right fibula (10/04/16). Constipation. COPD (chronic obstructive pulmonary disease). Current smoker (02/01/15). x 29 years. Depressive disorder. Diabetes mellitus, type II. a. chronic noncompliance. b. multiple episodes of admission for [facility]. c. ? diabetic retinopathy. Drug addiction. on Methadone. heroin use in remission x 3 years. Hyperlipemia. Hyperlipidemia. statin started . Non compliance with medical treatment (02/01/15). Panic disorder. PTSD (post-traumatic stress disorder). Schizophrenia. Umbilical hernia, incarcerated. Ventral hernia without obstruction or gangrene PREVIOUS FUNCTIONAL STATUS/SOCIAL/FAMILY SUPPORTS:: Josefina lives in an apartment in [facility] with her Chandan. Nani had a son who and his girlfriend and their daughter, who has special needs, lives with them as well. Nani is disabled and does not work. She is independent at baseline and does not receive any services. CURRENT FUNCTIONAL STATUS:: Nani was lying in bed in the ICU when CM met with her. She was still very sleepy and unable to participate in conversation, however her was present and able to answer questions. Chandan shared that although they do not receive any services, they would like Meals on Wheels. KERVIN sent a referral to [facility] [place] on Aging. ADVANCE DIRECTIVES:: none on file Has patient been provided with info about the portal/API?: Yes Did the patient sign up for the portal?: Yes (previously) CODE STATUS:: Full Code INSURANCE COVERAGE / FINANCIAL ISSUES:: medicaid CURRENT HOME/COMMUNITY SERVICES/EQUIPMENT:: none currently PRIMARY CARE PHYSICIAN:: Xin Stern POTENTIAL DISCHARGE NEEDS:: follow up with PCP and plan of care PATIENT/FAMILY EDUCATION NEEDS:: Review of discharge instructions, limitations, activity, follow up plan, discuss Ask Me Three TRANSPORTATION:: via private vehicle with family PLAN:: Josefina is being treated and closely monitored in the ICU. Her discharge plan is unclear at this time but she and her have requested Meals on Wheels. KERVIN sent a referral to [facility] [place]. Josefina will follow up with her PCP and plan of care and transport with family. CM will provide support to Josefina and her discharge needs.
[2022-05-26] MEDS: Insulin Glargine 300 UNITS/3 ML PEN 15 UNITS SC ×2 (09:14→14:33)
--- NOTE | 2022-05-26 09:19 | W.PM.PROGNOT ---
Date of Service Date of service: 05/26/22 Time of Service: 09:19 Assessment and Plan Assessment and plan (1) DKA (diabetic ketoacidosis): Status: Resolved Assessment and plan: DKA is resolved her anion gap is down to 9.1 this morning. Her anion gap actually closed last night at 2215. She is now off the insulin drip and will begin basal bolus therapy. I will start with 15 units of Lantus this morning and then put on 25 units at night. We will cover her with carbohydrate coverage at a ratio of 1:10 and use a moderate dose NovoLog sliding scale. A repeat her BMP at noon to monitor her serum sodium as well as to make sure her anion gap does not rise. Critical care time spent interviewing and examining the patient, reviewing studies, discussing case with patient's nurse and consulting physicians was 30 minutes (2) Acute upper GI bleeding: Status: Acute Assessment and plan: Surgical from Dr. Huston from yesterday is appreciated. Per Dr. 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 She indicated that they may consider EGD at a later date once she is stabilized from her DKA and her alcohol withdrawal. (3) Altered mental status: Status: Acute Assessment and plan: Altered mental status was secondary to her DKA. She appears to be improving although she is not fully engaging in conversation with me but she is answering the nurse when the nurse asked her questions regarding her food preferences. Patient has a background history of schizophrenia that is been untreated which also contributes to her cognitive impairment. No CT of her head was performed but as long she continues to improve and become more conversant will be able to assess her mental status more clearly. (4) Substance abuse: Status: Acute Assessment and plan: patient has been a client at [facility] and is on methadone 25 mg daily. I have asked our pharmacist to confirm her dose so that we can restart her methadone. (5) Diabetic nephropathy: Status: Chronic Assessment and plan: she has baseline of creatinine of 1.0 (as of 09/28/21). (6) OMID (acute kidney injury): Status: Acute Assessment and plan: secondary to hypotension. Dr. Huston does not feel that the patient had significant bleeding because of hypotension. Her hypertension very well may have been drug related as the patient did receive narcotics and lorazepam in the emergency department and takes light center pro for blood pressure at home. According to her she was not eating and drinking secondary to nausea from her DKA. She presented with prerenal azotemia was very dehydrated. She had an episode of hematemesis [place] coffee-ground emesis which may been her alcoholic gastritis. She has been hemodynamically stable overnight. She has a Best catheter in place and is draining adequate clear yellow urine. BUN/creatinine are responding appropriately. We will continue hydration. She is currently getting D5W to correct her hypernatremia. Afterwards we will switch her to LR until she is eating and drinking adequately. (7) Alcoholism: Status: Acute Assessment and plan: patient normally drinks 48 to 72 ounces of beer or twisted tea per day but has not drank in past 3 days as she has been repenting so God will accept her as his bride. We will cover for possible alcohol withdrawal, provide MVS/thiamine/folic acid and benzodiazepine protocol (she is on methadone which contra-inidcates for use of phenobarbital). Continue CIWA scoring. Once she is taking p.o. well we will switch her banana bag over to oral multivitamin and thiamine and folic acid. Subjective Subjective Interval history since last seen: Patient's DKA is resolved although she has had a secondary hypernatremia due to saline infusion last night. Patient is still a little lethargic this morning but she does nod yes and no to questions and spontaneously opens her eyes. Fingerstick glucose is 136 this morning. Morning lab draw her glucose was 175. Her OMID is also improving with her BUN down to 50 creatinine down to 2.4. She is having good urine output through her Best catheter. This point were going to start her on a diet and put her on basal bolus insulin treatment. During the night she was switched to D5 half-normal saline which I have changed to D5W and will continue to monitor BMP every 4 hours until her serum sodium is down below 150. At which point we could probably discontinue the D5W. She will continue to receive IV fluids until she is taking adequate p.o. She can be moved out of ICU today. Exam Narrative Exam Narrative: Patient is lying in bed with her eyes closed when I call her name she does not respond to me from when the nurse gave her her insulin injection this morning she opened her eyes looked a nurse and yelled out sugar. When the nurse asked her if she would like something to drink she nodded her head yes. Lungs are clear to auscultation Heart is regular rate and rhythm Abdomen soft nontender Extremities without peripheral edema. Review of telemetry sinus rhythm no arrhythmias Objective Last Vital Signs Temp 37.0 C 05/26/22 08:06 Pulse 76 05/26/22 08:06 Resp 19 05/26/22 08:06 BP 137/76 05/26/22 08:06 Pulse Ox 90 L 05/26/22 08:06 Laboratory Results - last 24 hr 05/25/22 05/25/22 05/25/22 09:07 09:07 09:07 WBC RBC Hgb Hct MCV MCH MCHC RDW Plt Count MPV Immature Gran % Neutrophils % Lymphocytes % Monocytes % Eosinophils % Basophils % Nucleated RBC % Absolute Neutrophils Absolute Lymphocytes Absolute Monocytes Absolute Eosinophils Absolute Basophils PT 9.8 INR 1.0 APTT 20.4 L ABG Sample Site ABG pH ABG pCO2 ABG pO2 ABG HCO3 ABG Total CO2 ABG O2 Saturation ABG Base Excess VBG pH VBG pCO2 VBG pO2 VBG HCO3 VBG Total CO2 VBG O2 Saturation VBG Base Excess VBG Lactate Oxygen Liter Flow FiO2 Sodium 135 L Potassium 5.4 H Chloride 85 L Carbon Dioxide 8.0 L Anion Gap 42.0 H BUN 57 H Creatinine 3.9 H* Est GFR (CKD-EPI 2020) 13.32 Glucose 968 H* Calcium 9.7 Phosphorus Magnesium 2.7 H Total Bilirubin 0.9 AST 13 L ALT 25 Alkaline Phosphatase 92 Troponin I < 50 Total Protein 8.3 H Albumin 4.3 Lipase 336 TSH 1.14 Urine Color Urine Clarity Urine pH Ur Specific [place] Urine Protein Urine Ketones Urine Blood Urine Nitrite Urine Bilirubin Urine Urobilinogen Ur Leukocyte Esterase Urine Glucose Salicylates Urine Opiates Screen Urine Methadone Screen Acetaminophen Ur Barbiturates Screen Ur Tricyclics Screen Ur Amphetamines Screen U Benzodiazepines Scrn Urine Cocaine Screen Ur THC Screen Ethyl Alcohol < 3.0 SARS-CoV-2 (PCR) Patient ABO/Rh A Positive Antibody Screen NEGATIVE Crossmatch See Detail 05/25/22 05/25/22 05/25/22 09:07 09:07 09:07 WBC RBC Hgb Hct MCV MCH MCHC RDW Plt Count MPV Immature Gran % Neutrophils % Lymphocytes % Monocytes % Eosinophils % Basophils % Nucleated RBC % Absolute Neutrophils Absolute Lymphocytes Absolute Monocytes Absolute Eosinophils Absolute Basophils PT INR APTT ABG Sample Site ABG pH ABG pCO2 ABG pO2 ABG HCO3 ABG Total CO2 ABG O2 Saturation ABG Base Excess VBG pH VBG pCO2 VBG pO2 VBG HCO3 VBG Total CO2 VBG O2 Saturation VBG Base Excess VBG Lactate Oxygen Liter Flow FiO2 Sodium Potassium Chloride Carbon Dioxide Anion Gap BUN Creatinine Est GFR (CKD-EPI 2020) Glucose Calcium Phosphorus 11.0 H Magnesium Total Bilirubin AST ALT Alkaline Phosphatase Troponin I Total Protein Albumin Lipase TSH Urine Color Urine Clarity Urine pH Ur Specific [place] Urine Protein Urine Ketones Urine Blood Urine Nitrite Urine Bilirubin Urine Urobilinogen Ur Leukocyte Esterase Urine Glucose Salicylates 5.7 Urine Opiates Screen Urine Methadone Screen Acetaminophen < 2 Ur Barbiturates Screen Ur Tricyclics Screen Ur Amphetamines Screen U Benzodiazepines Scrn Urine Cocaine Screen Ur THC Screen Ethyl Alcohol SARS-CoV-2 (PCR) Negative Patient ABO/Rh Antibody Screen Crossmatch 05/25/22 05/25/22 05/25/22 13:50 13:50 14:05 WBC RBC Hgb Cancelled Hct Cancelled MCV MCH MCHC RDW Plt Count MPV Immature Gran % Neutrophils % Lymphocytes % Monocytes % Eosinophils % Basophils % Nucleated RBC % Absolute Neutrophils Absolute Lymphocytes Absolute Monocytes Absolute Eosinophils Absolute Basophils PT INR APTT ABG Sample Site ABG pH ABG pCO2 ABG pO2 ABG HCO3 ABG Total CO2 ABG O2 Saturation ABG Base Excess VBG pH VBG pCO2 VBG pO2 VBG HCO3 VBG Total CO2 VBG O2 Saturation VBG Base Excess VBG Lactate Oxygen Liter Flow FiO2 Sodium 138 Potassium 4.4 D Chloride 90 L Carbon Dioxide 5.5 L Anion Gap 42.5 H BUN 63 H Creatinine 4.3 H* Est GFR (CKD-EPI 2020) 11.85 Glucose 907 H* Calcium 8.0 L Phosphorus Magnesium Total Bilirubin AST ALT Alkaline Phosphatase Troponin I Total Protein Albumin Lipase TSH Urine Color Urine Clarity Urine pH Ur Specific [place] Urine Protein Urine Ketones Urine Blood Urine Nitrite Urine Bilirubin Urine Urobilinogen Ur Leukocyte Esterase Urine Glucose Salicylates Urine Opiates Screen Negative Urine Methadone Screen Positive A Acetaminophen Ur Barbiturates Screen Negative Ur Tricyclics Screen Negative Ur Amphetamines Screen Negative U Benzodiazepines Scrn Negative Urine Cocaine Screen Negative Ur THC Screen Negative Ethyl Alcohol SARS-CoV-2 (PCR) Patient ABO/Rh Antibody Screen Crossmatch 05/25/22 05/25/22 05/25/22 14:05 14:13 15:17 WBC RBC Hgb 13.4 Hct 43.7 MCV MCH MCHC RDW Plt Count MPV Immature Gran % Neutrophils % Lymphocytes % Monocytes % Eosinophils % Basophils % Nucleated RBC % Absolute Neutrophils Absolute Lymphocytes Absolute Monocytes Absolute Eosinophils Absolute Basophils PT INR APTT ABG Sample Site Cancelled ABG pH Cancelled ABG pCO2 Cancelled ABG pO2 Cancelled ABG HCO3 Cancelled ABG Total CO2 Cancelled ABG O2 Saturation Cancelled ABG Base Excess Cancelled VBG pH VBG pCO2 VBG pO2 VBG HCO3 VBG Total CO2 VBG O2 Saturation VBG Base Excess VBG Lactate Oxygen Liter Flow Cancelled FiO2 Cancelled Sodium Potassium Chloride Carbon Dioxide Anion Gap BUN Creatinine Est GFR (CKD-EPI 2020) Glucose Calcium Phosphorus Magnesium Total Bilirubin AST ALT Alkaline Phosphatase Troponin I Total Protein Albumin Lipase TSH Urine Color Yellow Urine Clarity Sl Cloudy Urine pH 5.5 Ur Specific [place] 1.025 Urine Protein Negative Urine Ketones 80 H Urine Blood Negative Urine Nitrite Negative Urine Bilirubin Small H Urine Urobilinogen 0.2 Ur Leukocyte Esterase Negative Urine Glucose 500 H Salicylates Urine Opiates Screen Urine Methadone Screen Acetaminophen Ur Barbiturates Screen Ur Tricyclics Screen Ur Amphetamines Screen U Benzodiazepines Scrn Urine Cocaine Screen Ur THC Screen Ethyl Alcohol SARS-CoV-2 (PCR) Patient ABO/Rh Antibody Screen Crossmatch 05/25/22 05/25/22 05/25/22 15:45 15:45 15:45 WBC RBC Hgb 13.3 Hct 41.0 MCV MCH MCHC RDW Plt Count MPV Immature Gran % Neutrophils % Lymphocytes % Monocytes % Eosinophils % Basophils % Nucleated RBC % Absolute Neutrophils Absolute Lymphocytes Absolute Monocytes Absolute Eosinophils Absolute Basophils PT INR APTT ABG Sample Site ABG pH ABG pCO2 ABG pO2 ABG HCO3 ABG Total CO2 ABG O2 Saturation ABG Base Excess VBG pH 7.23 L VBG pCO2 22 L VBG pO2 53 VBG HCO3 9 L VBG Total CO2 9 L VBG O2 Saturation 86 VBG Base Excess < -15 L VBG Lactate Oxygen Liter Flow FiO2 Sodium 139 Potassium 3.6 Chloride 97 L Carbon Dioxide 11.0 L Anion Gap 31.0 H BUN 63 H Creatinine 4.0 H* Est GFR (CKD-EPI 2020) 12.92 Glucose 827 H* Calcium 7.6 L Phosphorus Magnesium Total Bilirubin AST ALT Alkaline Phosphatase Troponin I Total Protein Albumin Lipase TSH Urine Color Urine Clarity Urine pH Ur Specific [place] Urine Protein Urine Ketones Urine Blood Urine Nitrite Urine Bilirubin Urine Urobilinogen Ur Leukocyte Esterase Urine Glucose Salicylates Urine Opiates Screen Urine Methadone Screen Acetaminophen Ur Barbiturates Screen Ur Tricyclics Screen Ur Amphetamines Screen U Benzodiazepines Scrn Urine Cocaine Screen Ur THC Screen Ethyl Alcohol SARS-CoV-2 (PCR) Patient ABO/Rh Antibody Screen Crossmatch 05/25/22 05/25/22 05/25/22 15:45 18:07 18:07 WBC RBC Hgb Hct MCV MCH MCHC RDW Plt Count MPV Immature Gran % Neutrophils % Lymphocytes % Monocytes % Eosinophils % Basophils % Nucleated RBC % Absolute Neutrophils Absolute Lymphocytes Absolute Monocytes Absolute Eosinophils Absolute Basophils PT INR APTT ABG Sample Site ABG pH ABG pCO2 ABG pO2 ABG HCO3 ABG Total CO2 ABG O2 Saturation ABG Base Excess VBG pH VBG pCO2 VBG pO2 VBG HCO3 VBG Total CO2 VBG O2 Saturation VBG Base Excess VBG Lactate 2.8 H* 2.1 H Oxygen Liter Flow FiO2 Sodium 143 Potassium 3.8 Chloride 103 Carbon Dioxide 19.4 L Anion Gap 20.6 H BUN 64 H Creatinine 3.7 H* Est GFR (CKD-EPI 2020) 14.19 Glucose 616 H* Calcium 7.7 L Phosphorus Magnesium Total Bilirubin AST ALT Alkaline Phosphatase Troponin I Total Protein Albumin Lipase TSH Urine Color Urine Clarity Urine pH Ur Specific [place] Urine Protein Urine Ketones Urine Blood Urine Nitrite Urine Bilirubin Urine Urobilinogen Ur Leukocyte Esterase Urine Glucose Salicylates Urine Opiates Screen Urine Methadone Screen Acetaminophen Ur Barbiturates Screen Ur Tricyclics Screen Ur Amphetamines Screen U Benzodiazepines Scrn Urine Cocaine Screen Ur THC Screen Ethyl Alcohol SARS-CoV-2 (PCR) Patient ABO/Rh Antibody Screen Crossmatch 05/25/22 05/26/22 05/26/22 22:15 01:45 05:10 WBC RBC Hgb Hct MCV MCH MCHC RDW Plt Count MPV Immature Gran % Neutrophils % Lymphocytes % Monocytes % Eosinophils % Basophils % Nucleated RBC % Absolute Neutrophils Absolute Lymphocytes Absolute Monocytes Absolute Eosinophils Absolute Basophils PT INR APTT ABG Sample Site ABG pH ABG pCO2 ABG pO2 ABG HCO3 ABG Total CO2 ABG O2 Saturation ABG Base Excess VBG pH VBG pCO2 VBG pO2 VBG HCO3 VBG Total CO2 VBG O2 Saturation VBG Base Excess VBG Lactate Oxygen Liter Flow FiO2 Sodium 148 H 151 H 153 H Potassium 4.5 4.7 4.0 Chloride 111 H 116 H 117 H Carbon Dioxide 28.6 27.0 26.9 Anion Gap 8.4 8.0 9.1 BUN 57 H 54 H 50 H Creatinine 3.2 H 2.9 H 2.4 H Est GFR (CKD-EPI 2020) 16.89 19.01 23.85 Glucose 455 H 315 H 175 H Calcium 7.8 L 7.9 L 8.0 L Phosphorus Magnesium 2.2 Total Bilirubin 0.7 AST 43 H ALT 28 Alkaline Phosphatase 68 Troponin I Total Protein 6.1 L Albumin 2.9 L Lipase TSH Urine Color Urine Clarity Urine pH Ur Specific [place] Urine Protein Urine Ketones Urine Blood Urine Nitrite Urine Bilirubin Urine Urobilinogen Ur Leukocyte Esterase Urine Glucose Salicylates Urine Opiates Screen Urine Methadone Screen Acetaminophen Ur Barbiturates Screen Ur Tricyclics Screen Ur Amphetamines Screen U Benzodiazepines Scrn Urine Cocaine Screen Ur THC Screen Ethyl Alcohol SARS-CoV-2 (PCR) Patient ABO/Rh Antibody Screen Crossmatch 05/26/22 05:10 WBC 15.18 H RBC 5.01 Hgb 13.7 Hct 41.0 MCV 82 D MCH 27.3 MCHC 33.4 D RDW 14.1 Plt Count 219 MPV 10.8 Immature Gran % 0.5 Neutrophils % 86.7 Lymphocytes % 7.6 Monocytes % 5.1 Eosinophils % 0.0 Basophils % 0.1 Nucleated RBC % 0.0 Absolute Neutrophils 13.16 H Absolute Lymphocytes 1.15 L Absolute Monocytes 0.77 Absolute Eosinophils 0.00 Absolute Basophils 0.02 PT INR APTT ABG Sample Site ABG pH ABG pCO2 ABG pO2 ABG HCO3 ABG Total CO2 ABG O2 Saturation ABG Base Excess VBG pH VBG pCO2 VBG pO2 VBG HCO3 VBG Total CO2 VBG O2 Saturation VBG Base Excess VBG Lactate Oxygen Liter Flow FiO2 Sodium Potassium Chloride Carbon Dioxide Anion Gap BUN Creatinine Est GFR (CKD-EPI 2020) Glucose Calcium Phosphorus Magnesium Total Bilirubin AST ALT Alkaline Phosphatase Troponin I Total Protein Albumin Lipase TSH Urine Color Urine Clarity Urine pH Ur Specific [place] Urine Protein Urine Ketones Urine Blood Urine Nitrite Urine Bilirubin Urine Urobilinogen Ur Leukocyte Esterase Urine Glucose Salicylates Urine Opiates Screen Urine Methadone Screen Acetaminophen Ur Barbiturates Screen Ur Tricyclics Screen Ur Amphetamines Screen U Benzodiazepines Scrn Urine Cocaine Screen Ur THC Screen Ethyl Alcohol SARS-CoV-2 (PCR) Patient ABO/Rh Antibody Screen Crossmatch
[2022-05-26] MEDS: Sucralfate 1 GM TAB PO ×4 (09:32→22:16)
[2022-05-26] MEDS: Pantoprazole 40 MG TABCR PO ×2 (09:47→20:07)
[2022-05-26 10:00] LABS: PHOSPHORUS < 2.0 mg/dL (2.6-4.7)
[2022-05-26 10:01] LABS: ALT 28 U/L (14-59); AST 43 U/L (15-37); Albumin 2.9 g/dL (3.4-5.0); Alkaline Phosphatase 68 U/L (46-116); Bilirubin, Direct 0.2 mg/dL (0.0-0.2); Bilirubin, Total 0.7 mg/dL (0.2-1.0); Total Protein 6.1 g/dL (6.4-8.2)
[2022-05-26] MEDS: Insulin Aspart 300 UNITS/3 ML PEN SC ×5 (11:47→22:16)
--- NOTE | 2022-05-26 12:49 | PGE_ITS ---
Date of Service Date of service: 05/26/22 Time of Service: 12:49 Assessment and Plan Assessment and plan (1) Acute upper GI bleeding: Status: Acute Assessment and plan: Patient's Hgb is stable and still in the normal range. Most likely the patient has alcoholic gastritis. Recommend treating with 80 mg of Protonix or Prilosec twice daily as well as Carafate 4 times daily. Patient is on the schedule to have an EGD on Sunday. If she continues to be stable and her DKA is resolved before then she certainly could be discharged and come see Dr. Huston in the office for an outpatient EGD. There is no plans for emergent EGD this weekend. If patient does decompensate and her hemoglobin does start to drop then we can revisit EGD on an emergent basis. (2) Non compliance with medical treatment: (3) DKA (diabetic ketoacidosis): Status: Resolved (4) OMID (acute kidney injury): Status: Acute (5) Alcoholism: Status: Acute (6) Substance abuse: Status: Acute (7) Hypertension: Status: Chronic Qualifiers: Hypertension type: essential hypertension Qualified Code(s): I10 - Essential (primary) hypertension (8) COPD (chronic obstructive pulmonary disease): Subjective Subjective Interval history since last seen: Patient is seen today in the ICU. She is quite somnolent. I am able to arouse her but she is not really answering my questions. Her significant other is in the room. Exam GI Inspection: obesity Palpation: soft and nontender Auscultation: normal bowel sounds Objective Last Vital Signs Temp 98.6 F 05/26/22 10:29 Pulse 82 05/26/22 10:29 Resp 21 05/26/22 10:29 BP 162/86 H 05/26/22 10:29 Pulse Ox 97 05/26/22 10:29 Laboratory Results - last 24 hr 05/25/22 05/25/22 05/25/22 09:07 13:50 13:50 WBC RBC Hgb Cancelled Hct Cancelled MCV MCH MCHC RDW Plt Count MPV Immature Gran % Neutrophils % Lymphocytes % Monocytes % Eosinophils % Basophils % Nucleated RBC % Absolute Neutrophils Absolute Lymphocytes Absolute Monocytes Absolute Eosinophils Absolute Basophils ABG Sample Site ABG pH ABG pCO2 ABG pO2 ABG HCO3 ABG Total CO2 ABG O2 Saturation ABG Base Excess VBG pH VBG pCO2 VBG pO2 VBG HCO3 VBG Total CO2 VBG O2 Saturation VBG Base Excess VBG Lactate Oxygen Liter Flow FiO2 Sodium 138 Potassium 4.4 D Chloride 90 L Carbon Dioxide 5.5 L Anion Gap 42.5 H BUN 63 H Creatinine 4.3 H* Est GFR (CKD-EPI 2020) 11.85 Glucose 907 H* Calcium 8.0 L Phosphorus Magnesium Total Bilirubin Conjugated Bilirubin AST ALT Alkaline Phosphatase Total Protein Albumin Urine Color Urine Clarity Urine pH Ur Specific [place] Urine Protein Urine Ketones Urine Blood Urine Nitrite Urine Bilirubin Urine Urobilinogen Ur Leukocyte Esterase Urine Glucose Urine Opiates Screen Urine Methadone Screen Ur Barbiturates Screen Ur Tricyclics Screen Ur Amphetamines Screen U Benzodiazepines Scrn Urine Cocaine Screen Ur THC Screen Crossmatch See Detail 05/25/22 05/25/22 05/25/22 14:05 14:05 14:13 WBC RBC Hgb 13.4 Hct 43.7 MCV MCH MCHC RDW Plt Count MPV Immature Gran % Neutrophils % Lymphocytes % Monocytes % Eosinophils % Basophils % Nucleated RBC % Absolute Neutrophils Absolute Lymphocytes Absolute Monocytes Absolute Eosinophils Absolute Basophils ABG Sample Site ABG pH ABG pCO2 ABG pO2 ABG HCO3 ABG Total CO2 ABG O2 Saturation ABG Base Excess VBG pH VBG pCO2 VBG pO2 VBG HCO3 VBG Total CO2 VBG O2 Saturation VBG Base Excess VBG Lactate Oxygen Liter Flow FiO2 Sodium Potassium Chloride Carbon Dioxide Anion Gap BUN Creatinine Est GFR (CKD-EPI 2020) Glucose Calcium Phosphorus Magnesium Total Bilirubin Conjugated Bilirubin AST ALT Alkaline Phosphatase Total Protein Albumin Urine Color Yellow Urine Clarity Sl Cloudy Urine pH 5.5 Ur Specific [place] 1.025 Urine Protein Negative Urine Ketones 80 H Urine Blood Negative Urine Nitrite Negative Urine Bilirubin Small H Urine Urobilinogen 0.2 Ur Leukocyte Esterase Negative Urine Glucose 500 H Urine Opiates Screen Negative Urine Methadone Screen Positive A Ur Barbiturates Screen Negative Ur Tricyclics Screen Negative Ur Amphetamines Screen Negative U Benzodiazepines Scrn Negative Urine Cocaine Screen Negative Ur THC Screen Negative Crossmatch 05/25/22 05/25/22 05/25/22 15:17 15:45 15:45 WBC RBC Hgb 13.3 Hct 41.0 MCV MCH MCHC RDW Plt Count MPV Immature Gran % Neutrophils % Lymphocytes % Monocytes % Eosinophils % Basophils % Nucleated RBC % Absolute Neutrophils Absolute Lymphocytes Absolute Monocytes Absolute Eosinophils Absolute Basophils ABG Sample Site Cancelled ABG pH Cancelled ABG pCO2 Cancelled ABG pO2 Cancelled ABG HCO3 Cancelled ABG Total CO2 Cancelled ABG O2 Saturation Cancelled ABG Base Excess Cancelled VBG pH VBG pCO2 VBG pO2 VBG HCO3 VBG Total CO2 VBG O2 Saturation VBG Base Excess VBG Lactate Oxygen Liter Flow Cancelled FiO2 Cancelled Sodium 139 Potassium 3.6 Chloride 97 L Carbon Dioxide 11.0 L Anion Gap 31.0 H BUN 63 H Creatinine 4.0 H* Est GFR (CKD-EPI 2020) 12.92 Glucose 827 H* Calcium 7.6 L Phosphorus Magnesium Total Bilirubin Conjugated Bilirubin AST ALT Alkaline Phosphatase Total Protein Albumin Urine Color Urine Clarity Urine pH Ur Specific [place] Urine Protein Urine Ketones Urine Blood Urine Nitrite Urine Bilirubin Urine Urobilinogen Ur Leukocyte Esterase Urine Glucose Urine Opiates Screen Urine Methadone Screen Ur Barbiturates Screen Ur Tricyclics Screen Ur Amphetamines Screen U Benzodiazepines Scrn Urine Cocaine Screen Ur THC Screen Crossmatch 05/25/22 05/25/22 05/25/22 15:45 15:45 18:07 WBC RBC Hgb Hct MCV MCH MCHC RDW Plt Count MPV Immature Gran % Neutrophils % Lymphocytes % Monocytes % Eosinophils % Basophils % Nucleated RBC % Absolute Neutrophils Absolute Lymphocytes Absolute Monocytes Absolute Eosinophils Absolute Basophils ABG Sample Site ABG pH ABG pCO2 ABG pO2 ABG HCO3 ABG Total CO2 ABG O2 Saturation ABG Base Excess VBG pH 7.23 L VBG pCO2 22 L VBG pO2 53 VBG HCO3 9 L VBG Total CO2 9 L VBG O2 Saturation 86 VBG Base Excess < -15 L VBG Lactate 2.8 H* Oxygen Liter Flow FiO2 Sodium 143 Potassium 3.8 Chloride 103 Carbon Dioxide 19.4 L Anion Gap 20.6 H BUN 64 H Creatinine 3.7 H* Est GFR (CKD-EPI 2020) 14.19 Glucose 616 H* Calcium 7.7 L Phosphorus Magnesium Total Bilirubin Conjugated Bilirubin AST ALT Alkaline Phosphatase Total Protein Albumin Urine Color Urine Clarity Urine pH Ur Specific [place] Urine Protein Urine Ketones Urine Blood Urine Nitrite Urine Bilirubin Urine Urobilinogen Ur Leukocyte Esterase Urine Glucose Urine Opiates Screen Urine Methadone Screen Ur Barbiturates Screen Ur Tricyclics Screen Ur Amphetamines Screen U Benzodiazepines Scrn Urine Cocaine Screen Ur THC Screen Crossmatch 05/25/22 05/25/22 05/26/22 18:07 22:15 01:45 WBC RBC Hgb Hct MCV MCH MCHC RDW Plt Count MPV Immature Gran % Neutrophils % Lymphocytes % Monocytes % Eosinophils % Basophils % Nucleated RBC % Absolute Neutrophils Absolute Lymphocytes Absolute Monocytes Absolute Eosinophils Absolute Basophils ABG Sample Site ABG pH ABG pCO2 ABG pO2 ABG HCO3 ABG Total CO2 ABG O2 Saturation ABG Base Excess VBG pH VBG pCO2 VBG pO2 VBG HCO3 VBG Total CO2 VBG O2 Saturation VBG Base Excess VBG Lactate 2.1 H Oxygen Liter Flow FiO2 Sodium 148 H 151 H Potassium 4.5 4.7 Chloride 111 H 116 H Carbon Dioxide 28.6 27.0 Anion Gap 8.4 8.0 BUN 57 H 54 H Creatinine 3.2 H 2.9 H Est GFR (CKD-EPI 2020) 16.89 19.01 Glucose 455 H 315 H Calcium 7.8 L 7.9 L Phosphorus Magnesium Total Bilirubin Conjugated Bilirubin AST ALT Alkaline Phosphatase Total Protein Albumin Urine Color Urine Clarity Urine pH Ur Specific [place] Urine Protein Urine Ketones Urine Blood Urine Nitrite Urine Bilirubin Urine Urobilinogen Ur Leukocyte Esterase Urine Glucose Urine Opiates Screen Urine Methadone Screen Ur Barbiturates Screen Ur Tricyclics Screen Ur Amphetamines Screen U Benzodiazepines Scrn Urine Cocaine Screen Ur THC Screen Crossmatch 05/26/22 05/26/22 05/26/22 05:10 05:10 05:10 WBC 15.18 H RBC 5.01 Hgb 13.7 Hct 41.0 MCV 82 D MCH 27.3 MCHC 33.4 D RDW 14.1 Plt Count 219 MPV 10.8 Immature Gran % 0.5 Neutrophils % 86.7 Lymphocytes % 7.6 Monocytes % 5.1 Eosinophils % 0.0 Basophils % 0.1 Nucleated RBC % 0.0 Absolute Neutrophils 13.16 H Absolute Lymphocytes 1.15 L Absolute Monocytes 0.77 Absolute Eosinophils 0.00 Absolute Basophils 0.02 ABG Sample Site ABG pH ABG pCO2 ABG pO2 ABG HCO3 ABG Total CO2 ABG O2 Saturation ABG Base Excess VBG pH VBG pCO2 VBG pO2 VBG HCO3 VBG Total CO2 VBG O2 Saturation VBG Base Excess VBG Lactate Oxygen Liter Flow FiO2 Sodium 153 H Potassium 4.0 Chloride 117 H Carbon Dioxide 26.9 Anion Gap 9.1 BUN 50 H Creatinine 2.4 H Est GFR (CKD-EPI 2020) 23.85 Glucose 175 H Calcium 8.0 L Phosphorus < 2.0 L Magnesium 2.2 Total Bilirubin 0.7 Conjugated Bilirubin AST 43 H ALT 28 Alkaline Phosphatase 68 Total Protein 6.1 L Albumin 2.9 L Urine Color Urine Clarity Urine pH Ur Specific [place] Urine Protein Urine Ketones Urine Blood Urine Nitrite Urine Bilirubin Urine Urobilinogen Ur Leukocyte Esterase Urine Glucose Urine Opiates Screen Urine Methadone Screen Ur Barbiturates Screen Ur Tricyclics Screen Ur Amphetamines Screen U Benzodiazepines Scrn Urine Cocaine Screen Ur THC Screen Crossmatch 05/26/22 05:10 WBC RBC Hgb Hct MCV MCH MCHC RDW Plt Count MPV Immature Gran % Neutrophils % Lymphocytes % Monocytes % Eosinophils % Basophils % Nucleated RBC % Absolute Neutrophils Absolute Lymphocytes Absolute Monocytes Absolute Eosinophils Absolute Basophils ABG Sample Site ABG pH ABG pCO2 ABG pO2 ABG HCO3 ABG Total CO2 ABG O2 Saturation ABG Base Excess VBG pH VBG pCO2 VBG pO2 VBG HCO3 VBG Total CO2 VBG O2 Saturation VBG Base Excess VBG Lactate Oxygen Liter Flow FiO2 Sodium Potassium Chloride Carbon Dioxide Anion Gap BUN Creatinine Est GFR (CKD-EPI 2020) Glucose Calcium Phosphorus Magnesium Total Bilirubin 0.7 Conjugated Bilirubin 0.2 AST 43 H ALT 28 Alkaline Phosphatase 68 Total Protein 6.1 L Albumin 2.9 L Urine Color Urine Clarity Urine pH Ur Specific [place] Urine Protein Urine Ketones Urine Blood Urine Nitrite Urine Bilirubin Urine Urobilinogen Ur Leukocyte Esterase Urine Glucose Urine Opiates Screen Urine Methadone Screen Ur Barbiturates Screen Ur Tricyclics Screen Ur Amphetamines Screen U Benzodiazepines Scrn Urine Cocaine Screen Ur THC Screen Crossmatch
[2022-05-26 13:24] LABS: Anion Gap 15.3 mmol/L (3-11); BUN 45 mg/dL (7-18); CO2 20.7 mmol/L (21.0-32.0); CREATININE 2.2 mg/dL (0.55-1.02); Calcium 7.9 mg/dL (8.5-10.1); Chloride 108 mmol/L (98-107); Estimated GFR 26.48 (mL/min/1.73m2); Glucose 425 mg/dL (74-106); Potassium 3.7 mmol/L (3.5-5.1); Sodium 144 mmol/L (136-145)
[2022-05-26 17:12] LABS: Anion Gap 9.4 mmol/L (3-11); BUN 38 mg/dL (7-18); CO2 24.6 mmol/L (21.0-32.0); CREATININE 1.8 mg/dL (0.55-1.02); Calcium 7.9 mg/dL (8.5-10.1); Chloride 110 mmol/L (98-107); Estimated GFR 33.69 (mL/min/1.73m2); Glucose 346 mg/dL (74-106); Potassium 3.7 mmol/L (3.5-5.1); Sodium 144 mmol/L (136-145)
--- NOTE | 2022-05-26 17:20 | CHAPLAIN ---
Josefina was groggy when I visited this evening. Her Chandan was with. Chandan and remembered each other from previous admissions for Josefina. I offered support to Chandan and reminded him that playground monitor is available 16/04.
[2022-05-26] MEDS: Insulin Glargine 300 UNITS/3 ML PEN 20 UNITS SC (22:16)
[2022-05-26] MEDS: POTASSIUM CHLORIDE/0.9% NACL 1,000 ML 250 MEQ IV (22:17)
[2022-05-26] MEDS: LORazepam 1 MG TAB PO/SL (23:32)
[2022-05-27] VITALS (31 sets, daily range): BP systolic 82–180; BP diastolic 55–113; PULSE 50–76; RESP 13–23; TEMP 36.9; O2SAT 92–98
[2022-05-27] MEDS: POTASSIUM CHLORIDE/0.9% NACL 1,000 ML 250 MEQ IV ×2 (02:28→06:30)
[2022-05-27 06:06] LABS: Abs Immature Grans 0.02 10^3/uL (0.0-0.06); Absolute Basophil Count 0.01 10^3/uL (0.0-0.2); Absolute Eosinophil Count 0.02 10^3/uL (0.0-0.7); Absolute Lymphocyte Count 1.58 10^3/uL (1.2-3.4); Absolute Monocyte Count 0.43 10^3/uL (0.1-0.8); Absolute Neutrophil Count 6.88 10^3/uL (1.2-6.7); Basophils % 0.1; Eosinophils % 0.2; HCT 39.9 % (36.0-46.0); HGB 13.6 g/dL (11.2-15.7); Immature Grans % 0.2; Lymphocytes % 17.7; MCH 27.6 pg (27.0-33.0); MCHC 34.1 % (32.0-36.0); MCV 81 fL (80-95); MPV 10.5 fL (8.0-11.0); Monocytes % 4.8; Platelet Count 152 10^3/uL (130-400); RBC 4.93 10^6/uL (3.93-5.22); RDW 14.7 % (11.7-14.6); RDW-SD 43.8 fL; WBC 8.94 10^3/uL (4.4-10.8)
[2022-05-27 06:24] LABS: BUN 25 mg/dL (7-18); CREATININE 1.2 mg/dL (0.55-1.02); Calcium 7.7 mg/dL (8.5-10.1); Chloride 107 mmol/L (98-107); Glucose 345 mg/dL (74-106); Potassium 4.1 mmol/L (3.5-5.1); Sodium 141 mmol/L (136-145)
[2022-05-27] MEDS: Ondansetron O.D.T. 4 MG TABEF PO (08:09)
[2022-05-27] MEDS: Sucralfate 1 GM TAB PO ×4 (08:09→21:41)
[2022-05-27] MEDS: Pantoprazole 40 MG TABCR PO ×2 (08:10→21:41)
[2022-05-27] MEDS: Insulin Aspart 300 UNITS/3 ML PEN SC ×4 (09:32→21:35)
[2022-05-27] MEDS: Lisinopril 5 MG TAB 2.5 MG PO (09:34)
[2022-05-27] MEDS: Methadone Liquid 10 MG/ML 22 MG PO (09:36)
[2022-05-27] MEDS: Folic Acid 1 MG TAB PO (09:36)
[2022-05-27] MEDS: Thiamine 100 MG TAB PO (09:36)
[2022-05-27] MEDS: Multivitamin TAB 1 TAB PO (09:36)
--- NOTE | 2022-05-27 10:16 | PGE_ITS ---
Date of Service Date of service: 05/27/22 Time of Service: 10:16 Assessment and Plan Assessment and plan (1) DKA (diabetic ketoacidosis): Status: Resolved Assessment and plan: Her DKA remains resolved. renal fxn is improving. Will continue basal/bolus insulin w/ Lantus and Novolog sliding scale and Novolog CHO coverage. Her post prandial glucose did go up into the 300's this morning. I will split her Lantus dosing to twice a day and increase her CHO coverage. (2) Acute upper GI bleeding: Status: Acute Assessment and plan: surgical team has decided that she does not need EGD emergently and this can be pursued as outpatient. Will continue w/ PPI and carafate. I have explained this to the patient. (3) Altered mental status: Status: Resolved Assessment and plan: acute somnolence from DKA has resolved. She is now at her baseline w/ her paranoia and delusions of religiosity (4) Diabetic nephropathy: Status: Chronic Assessment and plan: now that her renal fxn has recovered, I will add low dose [id number] of lisinopril 2.5 mg daily for her BP and proteinuria. Will titrate to SBP of 140 or less (5) OMID (acute kidney injury): Status: Acute Assessment and plan: renal fxn has improved to Cre of 1.2 and BUN of 25. (6) Alcoholism: Status: Acute Assessment and plan: patient reportedly quit drinking 3 days prior to admission. We are monitoring per CIWA and dosing w/ lorazepam accordingly. She had banana bag for MVS/folate /thiamine. I will continue her supplements orally today. Although it may be worth giving her high dose thiamine in case some of her delirium is d/t Wernickes/Korsakoff and not just her schizophrenia (although her tells me she has suffered for years w/ schizophrenia but has been refusing meds). Subjective Subjective Interval history since last seen: Patient is more alert, she is oriented to her name and being in a hospital but she has exhibited her schizophrenia w/ delusions of religiosity and paranoia. She has been refusing food and she has tried to refuse her insulin. I spent some time w/ her explained her condition of DKA and how this could have led to her and the importance of taking the insulin so we can keep her glucose under control. She seemed cooperative to me. Exam Narrative Exam Narrative: Josefina was sitting up in her chair bathing. She covered up for me so I could perform an exam Lungs: clear to auscultation Heart: RRR, no murmur Abdomen: soft, nontender Objective Last Vital Signs Temp 36.9 C 05/27/22 07:30 Pulse 53 L 05/27/22 08:01 Resp 21 05/27/22 10:00 BP 161/80 H 05/27/22 08:01 Pulse Ox 96 05/27/22 07:19 Laboratory Results - last 24 hr 05/26/22 05/26/22 05/26/22 03:00 12:45 16:45 WBC RBC Hgb Hct MCV MCH MCHC RDW Plt Count MPV Immature Gran % Neutrophils % Lymphocytes % Monocytes % Eosinophils % Basophils % Nucleated RBC % Absolute Neutrophils Absolute Lymphocytes Absolute Monocytes Absolute Eosinophils Absolute Basophils Sodium Cancelled 144 144 Potassium Cancelled 3.7 3.7 Chloride Cancelled 108 H 110 H Carbon Dioxide Cancelled 20.7 L 24.6 Anion Gap Cancelled 15.3 H 9.4 BUN Cancelled 45 H 38 H Creatinine Cancelled 2.2 H 1.8 H Est GFR (CKD-EPI 2020) Cancelled 26.48 33.69 Glucose Cancelled 425 H 346 H Calcium Cancelled 7.9 L 7.9 L 05/27/22 05/27/22 05:20 05:20 WBC 8.94 RBC 4.93 Hgb 13.6 Hct 39.9 MCV 81 MCH 27.6 MCHC 34.1 RDW 14.7 H Plt Count 152 MPV 10.5 Immature Gran % 0.2 Neutrophils % 77.0 Lymphocytes % 17.7 Monocytes % 4.8 Eosinophils % 0.2 Basophils % 0.1 Nucleated RBC % 0.0 Absolute Neutrophils 6.88 H Absolute Lymphocytes 1.58 Absolute Monocytes 0.43 Absolute Eosinophils 0.02 Absolute Basophils 0.01 Sodium 141 Potassium 4.1 Chloride 107 Carbon Dioxide 26.0 Anion Gap 8.0 BUN 25 H Creatinine 1.2 H Est GFR (CKD-EPI 2020) 54.80 Glucose 345 H Calcium 7.7 L
[2022-05-27] MEDS: Insulin Glargine 300 UNITS/3 ML PEN 15 UNITS SC (11:22)
--- NOTE | 2022-05-27 11:34 | PGE_ITS ---
Date of Service Date of service: 05/27/22 Time of Service: 11:34 Assessment and Plan Assessment and plan (1) Acute upper GI bleeding: Status: Acute Assessment and plan: Patient's Hgb is stable and still in the normal range. Most likely the patient has alcoholic gastritis. Recommend treating with 40 mg of Protonix or Prilosec twice daily as well as Carafate 4 times daily. Patient is on the schedule to have an EGD on Sunday. If she continues to be stable and her DKA is resolved before then she certainly could be discharged and come see Dr. Huston in the office for an outpatient EGD. There is no plans for emergent EGD this weekend. If patient does decompensate and her hemoglobin does start to drop then we can perform EGD on an emergent basis. (2) Non compliance with medical treatment: (3) DKA (diabetic ketoacidosis): Status: Resolved (4) OMID (acute kidney injury): Status: Acute (5) Alcoholism: Status: Acute (6) Substance abuse: Status: Acute (7) Hypertension: Status: Chronic Qualifiers: Hypertension type: essential hypertension Qualified Code(s): I10 - Essential (primary) hypertension (8) COPD (chronic obstructive pulmonary disease): Subjective Subjective Interval history since last seen: Josefina is alert today. She wants to go home. She is asking the nurse about how much insulin she was given. She is having some nausea. No vomiting. She is eating. Hgb is stable Exam [facility] Head: normocephalic and atraumatic Resp Effort & Inspection: normal respiratory effort Auscultation: clear to auscultation bilaterally Cardio Rate: regular rate Rhythm: regular rhythm Objective Last Vital Signs Temp 98.4 F 05/27/22 07:30 Pulse 53 L 05/27/22 08:01 Resp 21 05/27/22 10:00 BP 161/80 H 05/27/22 08:01 Pulse Ox 96 05/27/22 07:19 Laboratory Results - last 24 hr 05/26/22 05/26/22 05/26/22 03:00 12:45 16:45 WBC RBC Hgb Hct MCV MCH MCHC RDW Plt Count MPV Immature Gran % Neutrophils % Lymphocytes % Monocytes % Eosinophils % Basophils % Nucleated RBC % Absolute Neutrophils Absolute Lymphocytes Absolute Monocytes Absolute Eosinophils Absolute Basophils Sodium Cancelled 144 144 Potassium Cancelled 3.7 3.7 Chloride Cancelled 108 H 110 H Carbon Dioxide Cancelled 20.7 L 24.6 Anion Gap Cancelled 15.3 H 9.4 BUN Cancelled 45 H 38 H Creatinine Cancelled 2.2 H 1.8 H Est GFR (CKD-EPI 2020) Cancelled 26.48 33.69 Glucose Cancelled 425 H 346 H Calcium Cancelled 7.9 L 7.9 L 05/27/22 05/27/22 05:20 05:20 WBC 8.94 RBC 4.93 Hgb 13.6 Hct 39.9 MCV 81 MCH 27.6 MCHC 34.1 RDW 14.7 H Plt Count 152 MPV 10.5 Immature Gran % 0.2 Neutrophils % 77.0 Lymphocytes % 17.7 Monocytes % 4.8 Eosinophils % 0.2 Basophils % 0.1 Nucleated RBC % 0.0 Absolute Neutrophils 6.88 H Absolute Lymphocytes 1.58 Absolute Monocytes 0.43 Absolute Eosinophils 0.02 Absolute Basophils 0.01 Sodium 141 Potassium 4.1 Chloride 107 Carbon Dioxide 26.0 Anion Gap 8.0 BUN 25 H Creatinine 1.2 H Est GFR (CKD-EPI 2020) 54.80 Glucose 345 H Calcium 7.7 L
--- NOTE | 2022-05-27 12:01 | NUR.NOTE ---
Nursing Note:Patient refusing AM insulin coverage ordered by and had to be convinced before accepting despite blood sugar of 345 and 315. She also reported that since the morning she had the thought of being poisoned and felt that the broth given in her breakfast tasted bitter; it had to be redone and she drank 1/2 of it before c/o bitterness; she also refused her juice for the same reason. She wants all her meals to stay covered,and drinks to be opened in front of her.She later on refused her stat Glargine/Lantus then was convinced to accept it as her blood sugar was 271. 15 minutes later, she c/o of shakiness inside while denying anxiety and reports needing a piece of toast, blood sugar at this time was 253. [place]up provided as had verbally told patient that this RN could give her toast.
--- NOTE | 2022-05-27 12:17 | NUR.NOTE ---
Diabetic education: Patient unable to teach back the names of her insulins, as she mixes up long acting and short acting; after writing them on the white board; patient was able to read back.
[2022-05-27] MEDS: LORazepam 1 MG TAB PO/SL (12:44)
[2022-05-27] MEDS: Acetaminophen 325 MG TAB PO (12:45)
--- NOTE | 2022-05-27 13:15 | NUR.NOTE ---
Patient is refusing to take her lorazepam and spit one of two pills out of her mouth. She is stating I know myself well enough to decide what I need; I don't need this. She is also refusing her 9 units of insulin for a gluc of 253 and 4 units for 20 grams of carbohydrates intake for lunch. Patient is speaking loud and pointing her index finger when this RN tried to convince her to take the insulin. Patient made aware that refusal will be noted in chart and that MD will be informed. Patient proceeded to refuse 325 mg of Tylenol for headache 01/31; when reassessed, she denied headache.
[2022-05-27] MEDS: THIAMINE 500 MG in Normal Saline 100 ML 200 MG IVPB ×2 (14:15→21:37)
[2022-05-27] MEDS: Normal Saline Flush 10 ML SYR IVP (14:15)
[2022-05-27] MEDS: Normal Saline 1,000 ML 1000 ML IV (18:41)
[2022-05-27 19:33] LABS: HCT 41.8 % (36.0-46.0); HGB 14.1 g/dL (11.2-15.7)
[2022-05-27] MEDS: Insulin Glargine 300 UNITS/3 ML PEN 20 UNITS SC (21:36)
[2022-05-27] MEDS: traZODone 50 MG TAB PO (21:41)
[2022-05-28 00:01] VITALS: BP 102/67; PULSE 52
[2022-05-28 01:01] VITALS: BP 123/78; PULSE 59
[2022-05-28 02:01] VITALS: BP 125/80; PULSE 52
[2022-05-28] MEDS: Pantoprazole 40 MG TABCR PO ×2 (08:31→19:53)
[2022-05-28] MEDS: Sucralfate 1 GM TAB PO ×3 (08:31→22:37)
[2022-05-28] MEDS: ARIPiprazole 2 MG TAB PO (08:32)
[2022-05-28] MEDS: Folic Acid 1 MG TAB PO (08:32)
[2022-05-28] MEDS: Multivitamin TAB 1 TAB PO (08:32)
[2022-05-28] MEDS: Ondansetron O.D.T. 4 MG TABEF PO (08:32)
[2022-05-28] MEDS: Insulin Aspart 300 UNITS/3 ML PEN SC ×4 (08:37→17:41)
[2022-05-28] MEDS: Insulin Glargine 300 UNITS/3 ML PEN 15 UNITS SC (08:56)
[2022-05-28] MEDS: Methadone Liquid 10 MG/ML 22 MG PO (09:22)
--- NOTE | 2022-05-28 09:31 | W.PM.PROGNOT ---
Date of Service Date of service: 05/28/22 Time of Service: 09:31 Assessment and Plan Assessment and plan (1) DKA (diabetic ketoacidosis): Status: Resolved Assessment and plan: she remains out of DKA. I will continue to adjust her basal and bolus insulin today, have nursing provide more diabetic education and plan for discharge tomorrow once I have decided on an appropriate meal time coverage ratio and appropriate dosing of her Lantus. Professional time spent interviewing and examining patient, discussion of goals of care with hospital team (care management, nursing and consulting professionals) was 30 minutes. (2) Acute upper GI bleeding: Status: Acute Assessment and plan: surgical team has decided that she does not need EGD emergently and this can be pursued as outpatient. Will continue w/ PPI and carafate. I have explained this to the patient. (3) Altered mental status: Status: Resolved Assessment and plan: acute somnolence from DKA has resolved. Patient is not expressing any delusional thinking this morning. She willingly took her Abilify 2 mg this morning. (4) Diabetic nephropathy: Status: Chronic Assessment and plan: patient had some low BP last night and required fluid bolus. I think that this was related to poor intake yesterday, nevertheless I have stopped the lisinopril that I put her on yesterday for her proteinuria (5) OMID (acute kidney injury): Status: Resolved Assessment and plan: renal fxn has improved to Cre of 1.2 and BUN of 25. (6) Alcoholism: Status: Acute Assessment and plan: patient reportedly quit drinking at least 3 days prior to her admission. She has been hospitalized now for 3 days. Her CIWA score has been 0 to 1 since last night. She has not required lorazepam since yesterday. I think that the CIWA scoring can be stopped at this point. Subjective Subjective Interval history since last seen: Patient is more alert and coherent and cooperative today. She is eating better this morning. Her glucose this morning was in the 190 per fingerstick but her her lab drawn bmp glucose was 345 and her bedtime level per fingerstick was 168. Her bmp shows that she remains out of DKA w/ normal anion gap and bicarbonate. She had a lot of questions regarding insulin management. I briefly went over the differences between basal and bolus insulin and talked w/ her about the differences of high carbohydrate and low carbohydrate meals and how this can change her insulin requirements but that she needs to take her basal insulin every day as prescribed regardless of how much or little she eats. I also told her that we would set her up w/ a hematology nurse educator to work w/ her as outpatient. Exam Narrative Exam Narrative: Josefina is alert, attentive and asking appropriate questions. She does not seem to be delusional this morning She took her Abilify willingly this morning She does not appear to have any tremors or diaphoresis and no signs of withdrawal Objective Last Vital Signs Temp 36.9 C 05/27/22 07:30 Pulse 52 L 05/28/22 02:01 Resp 21 05/27/22 10:00 BP 125/80 05/28/22 02:01 Pulse Ox 96 05/27/22 07:19 Laboratory Results - last 24 hr 05/27/22 19:20 Hgb 14.1 Hct 41.8
[2022-05-28 15:31] VITALS: BP 115/80; PULSE 78; RESP 16; TEMP 36.6; O2SAT 100
[2022-05-28 17:44] VITALS: BP 115/80; PULSE 78; RESP 16; TEMP 36.6; O2SAT 100
[2022-05-28] MEDS: LORazepam 0.5 MG TAB PO (19:54)
[2022-05-28 23:40] VITALS: BP 128/83; PULSE 72; RESP 18; TEMP 36.7; O2SAT 99
[2022-05-28] MEDS: THIAMINE 500 MG in Normal Saline 100 ML 200 MG IVPB (23:47)
[2022-05-29] MEDS: THIAMINE 500 MG in Normal Saline 100 ML 200 MG IVPB (06:06)
[2022-05-29] MEDS: Normal Saline Flush 10 ML SYR IVP ×2 (06:07→13:04)
[2022-05-29] MEDS: ARIPiprazole 2 MG TAB PO (07:44)
[2022-05-29] MEDS: Sucralfate 1 GM TAB PO ×4 (07:45→20:59)
[2022-05-29] MEDS: Multivitamin TAB 1 TAB PO (07:45)
[2022-05-29] MEDS: Pantoprazole 40 MG TABCR PO ×2 (07:45→20:59)
[2022-05-29] MEDS: Folic Acid 1 MG TAB PO (07:45)
[2022-05-29] MEDS: Insulin Glargine 300 UNITS/3 ML PEN 15 UNITS SC (07:46)
[2022-05-29] MEDS: Insulin Aspart 300 UNITS/3 ML PEN SC ×4 (07:48→20:59)
[2022-05-29 08:08] VITALS: BP 151/67; PULSE 61; RESP 16; TEMP 36.7; O2SAT 98
[2022-05-29] MEDS: Methadone Liquid 10 MG/ML 20 MG PO (10:19)
[2022-05-29 11:11] VITALS: BP 148/91; PULSE 65; RESP 16; TEMP 37; O2SAT 96
[2022-05-29] MEDS: Gabapentin 100 MG CAP PO ×2 (13:14→20:59)
[2022-05-29] MEDS: Docusate Sodium 100 MG CAP PO (13:15)
[2022-05-29 15:28] VITALS: BP 137/80; PULSE 68; RESP 16; TEMP 37; O2SAT 97
[2022-05-29] MEDS: Ondansetron O.D.T. 4 MG TABEF PO (17:42)
--- NOTE | 2022-05-29 17:50 | W.PM.PROGNOT ---
Date of Service Date of service: 05/29/22 Time of Service: 17:50 Assessment and Plan Assessment and plan (1) DKA (diabetic ketoacidosis): Status: Resolved Assessment and plan: Out of DKA. Hypoglycemic yesterday - today we are being more cautious with insulins. (2) Acute upper GI bleeding: Status: Resolved Assessment and plan: continue w/ PPI and carafate. EGD as outpatient. Concern for gastroparesis as well - obtain records from [facility]. Provide antiemetics. (3) Altered mental status: Status: Resolved Assessment and plan: At baseline. Continue abilify. (4) Diabetic nephropathy: Status: Chronic Assessment and plan: Recheck Cr in am. (5) OMID (acute kidney injury): Status: Resolved Assessment and plan: As above (6) Alcoholism: Status: Acute Assessment and plan: Last drink 3 days prior to admission. No evidence of EtOH w/d at this time. Continue to monitor on CIWA (7) Gastroparesis: Status: Suspected Assessment and plan: As above - obtain records from [facility]. (8) DVT prophylaxis: Status: Acute Assessment and plan: SCDS (GI bleeding on this admission is a contraindication to chemical DVT ppx). (9) Discharge planning issues: Status: Acute Assessment and plan: Full code Continues to require hospitalization Subjective Subjective Interval history since last seen: Ms Higginbotham states that she has been nauseated most of the day today and some of the day yesterday. Her PO intake has been poor, per nursing. Per her in the room, the patient was told that she had gastroparesis in the past when she went to [place], but the patient is not able to tell me if any treatment was initiated. She had a BM today. She reports a sensation of pressure in her epigastrium and like the food is just sitting there. Denies dizziness, chest pain, shortness of breath. Exam Narrative Exam Narrative: General: Pleasant obese female who is A&Ox3, NAD HEENT: EOMI, MMM Heart: RRR, no m/r/g Lungs: CTAB Abdomen: soft,nontender, nondistended Extremities: no edema BLEs Objective Last Vital Signs Temp 37.0 C 05/29/22 15:28 Pulse 68 05/29/22 15:28 Resp 16 09/05/22 15:28 BP 137/80 05/29/22 15:28 Pulse Ox 97 05/29/22 15:28
[2022-05-29] MEDS: LORazepam 0.5 MG TAB PO (21:09)
[2022-05-29 23:22] VITALS: BP 138/80; PULSE 64; RESP 16; TEMP 36.7; O2SAT 97
--- NOTE | 2022-05-30 00:03 | W.PM.ENDDOP ---
Date of service: 05/30/22 Time of Service: 15:40 Endoscopy Report DATE OF PROCEDURE: 05/30/22 PRE-OP DIAGNOSIS: UGI bleed/hx of ETOH abuse/medical noncomlience POST-OP DIAGNOSIS: other (mild esophagitis ) SURGEON: Tri Huston ANESTHESIA TYPE: General:No Airway ESTIMATED BLOOD LOSS: 1 PATHOLOGY: other COMPLICATIONS: None DISPOSITION: PACU PROCEDURE DESCRIPTION: After informed consent was obtained the patient was take to the procedure room and placed in a supine position. Monitors were applied and a time out was done. The patients name, date of , procedure type, allergies to medications and metal in their body was reviewed. A bite block was placed and the patient was sedated. Once sedated and comfortable the gastroscope was advanced through the oropharynx which was grossly normal into the esophagus. The proximal and mid-esophagus were nl. In the distal esophagus there was mild esophagitis noted. There is no esophageal erosions, varices, diverticula or stricture visualized today. The scope was advanced into the stomach and through the pylorus into the 3rd portion of the duodenum. The duodenum was noted to be nl. Biopsies were done, all specimens are retrieved and no bleeding is noted . The scope was retracted back into the stomach and biopsies were done to rule out H. pylori. There were no gastritis, ulcers,ulcers noted. The scope was retroflexed. The cardia and fundus were noted to be normal. There is no hiatal hernia noted. The scope was retracted back into the esophagus and biopsies were done of the GE junction to rule out Verdugo's. The Z line was regular. The GE junction biopsies are taken at 38 cm. The distal esophagus is at 35 cm. The scope was removed and the patient was woken up and taken back to [facility] in stable condition.
[2022-05-30] MEDS: Lactated Ringers 1,000 ML 125 ML IV (02:00)
[2022-05-30 07:28] LABS: Abs Immature Grans 0.01 10^3/uL (0.0-0.06); Absolute Basophil Count 0.01 10^3/uL (0.0-0.2); Absolute Eosinophil Count 0.12 10^3/uL (0.0-0.7); Absolute Lymphocyte Count 1.72 10^3/uL (1.2-3.4); Absolute Monocyte Count 0.37 10^3/uL (0.1-0.8); Absolute Neutrophil Count 2.21 10^3/uL (1.2-6.7); Basophils % 0.2; Eosinophils % 2.7; HCT 43.2 % (36.0-46.0); HGB 13.8 g/dL (11.2-15.7); Immature Grans % 0.2; Lymphocytes % 38.7; MCH 26.8 pg (27.0-33.0); MCHC 31.9 % (32.0-36.0); MCV 84 fL (80-95); Monocytes % 8.3; Neutrophils % 49.9; Platelet Count 175 10^3/uL (130-400); RBC 5.14 10^6/uL (3.93-5.22); RDW 14.1 % (11.7-14.6); RDW-SD 43.6 fL; WBC 4.44 10^3/uL (4.4-10.8)
--- NOTE | 2022-05-30 07:34 | W.ANESPRE ---
General Info Date of Service Date Performed: 05/30/22 Height: 5 ft 1 in Weight: 87.7 kg Body Mass Index (BMI): 36.5 Surgical Procedure: Operation Date: 05/30/22 09:05 Proposed Procedure Side Surgeon p Gastroscopy Tri Huston, DO Meds Allergies and Home Medications Allergies Allergy/AdvReac Type Severity Reaction Status Date / Time venom-honey bee Allergy Intermediate Verified 03/20/22 06:40 [bee venom (honey bee)] Sulfa (Sulfonamide Allergy Rash & Verified 03/20/22 06:40 Antibiotics) Shortness of Breath hydroxyzine HCl AdvReac Intermediate nausea/vomiting, Verified 03/20/22 06:40 [From Vistaril] palpitations Home Medication Medication Instructions Recorded epinephrine 0.3 mg/0.3 mL 0.3 mg IM ONCE #1 pen 04/01/13 injection, auto-injector (EpiPen 2-Tejinder) blood-glucose meter (FreeStyle #1 ea 12/09/19 Lite Meter kit) clotrimazole 1 % topical cream 1 applic topical BID #28 grams 09/20/20 mupirocin 2 % topical ointment 1 applic topical TID PRN skin 09/20/20 infection #22 grams methadone 10 mg/5 mL oral solution 22 mg PO DAILY 11/15/20 albuterol sulfate 2.5 mg/0.5 mL 5 mg inhalation Q6H PRN shortness 12/31/20 solution for nebulization of breath or wheezing #30 ea albuterol sulfate 90 mcg/actuation 2 puff inhalation QID PRN 12/31/20 aerosol inhaler shortness of breath or wheezing #3 ea sennosides 8.6 mg capsule (senna) 8.6 mg PO BID PRN constipation #60 12/31/20 caps diclofenac potassium 50 mg tablet 50 mg PO TID PRN leg pain #30 tabs 02/09/21 cholecalciferol (vitamin D3) 25 25 mcg PO DAILY #90 caps 08/29/21 mcg (1,000 unit) capsule docusate sodium 100 mg capsule 100 mg PO BID #180 caps 10/25/21 (Colace) lisinopril 20 mg tablet 20 mg PO DAILY #90 tabs 10/25/21 miconazole nitrate 2 % topical 1 applic topical BID PRN vaginitis 10/25/21 cream #28 grams nicotine 14 mg/24 hr daily 1 patch transdermal DAILY #28 ea 10/25/21 transdermal patch omeprazole 40 mg capsule,delayed 40 mg PO DAILY #90 caps 10/25/21 release Novolog Flexpen U-100 Insulin 100 See Rx Instructions .Route 02/22/22 unit/mL (3 mL) subcutaneous .COMPLEX #15 mL (insulin aspart U-100) lancets 28 gauge (FreeStyle #400 ea 03/03/22 Lancets) terbinafine HCl 1 % topical cream 1 applic topical BID #30 grams 03/03/22 (Lamisil AT) triamcinolone acetonide 0.1 % 1 applic topical BID #80 grams 03/03/22 topical ointment blood sugar diagnostic (Blood #400 strips 03/15/22 Glucose Test strips) insulin glargine 100 unit/mL (3 40 unit (0.4 mL) subcut QHS #30 mL 03/15/22 mL) subcutaneous pen pen needle, diabetic 31 gauge x #200 ea 03/15/22 1/3 atorvastatin 20 mg tablet 20 mg PO DAILY #90 tabs 03/28/22 lorazepam 1 mg tablet 1 mg PO DAILY PRN anxiety #10 tabs 05/03/22 ondansetron 4 mg disintegrating 2 mg PO DAILY 05/28/22 tablet ondansetron HCl 4 mg tablet 2 mg PO DAILY PRN nausea and 05/28/22 vomiting Current Visit Medications: Current Medications Generic Name Dose Route Start Last Admin Trade Name Freq PRN Reason Stop Dose Admin Acetaminophen 0 mg 05/25/22 12:00 05/27/22 12:45 Acetaminophen 325 Mg Tab PO 325 mg Q4H PRN PRN Administration Acetaminophen 650 mg 05/25/22 12:00 Acetaminophen 650 Mg Supp RI Q4H PRN PRN Al Hydrox/Mg Hydrox/Simethicone 30 ml 05/25/22 12:00 Mylanta Suspension 30 Ml Cup PO Q2H PRN PRN Aripiprazole 2 mg 05/28/22 08:30 05/29/22 07:44 Aripiprazole 2 Mg Tab PO 2 mg DAILY YASMANY Administration Dextrose 30 gm 05/28/22 21:11 Glucose 40% Oral Solution 15 Gm/37.5 Gm Tube PO PRN PRN Dextrose/Water 25 gm 05/28/22 21:11 Dextrose 50%-Water 25 Gm/50 Ml Syr IVP Q1H PRN PRN Dimethicone/Zinc Oxide 0 gm 05/25/22 11:59 Luke Protect Cream 142 Gm Tube TP PRN PRN Docusate Sodium 100 mg 05/25/22 12:00 05/29/22 13:15 Docusate Sodium 100 Mg Cap PO 100 mg TID PRN PRN Administration Folic Acid 1 mg 05/27/22 08:30 05/29/22 07:45 Folic Acid 1 Mg Tab PO 06/02/22 08:31 1 mg QAM YASMANY Administration Gabapentin 100 mg 05/29/22 14:00 05/29/22 20:59 Gabapentin 100 Mg Cap PO 100 mg TID YASMANY Administration Sodium Chloride 500 mls @ 0 mls/hr 05/25/22 08:55 Saline 500ml Bag IV PRN PRN As Directed Ringer's Solution 1,000 mls @ 125 mls/hr 05/29/22 23:45 05/30/22 02:00 IV 125 mls/hr INFUSION YASMANY Administration IV Miscellaneous Supplies 1 each 05/25/22 09:00 Iv Access IV DIRECTED YASMANY Insulin Aspart 0 units 05/26/22 08:00 05/29/22 20:59 Insulin Aspart 300 Units/3 Ml Pen SC 8 units 0800,1200,1700,2200 YASMANY Administration Protocol Insulin Aspart 0 units 05/26/22 08:00 05/29/22 18:20 Insulin Aspart 300 Units/3 Ml Pen SC Not Given 0800,1200,1700 YASMANY Insulin Glargine 15 units 05/28/22 08:30 05/29/22 07:46 Insulin Glargine 300 Units/3 Ml Pen SC 15 units DAILY YASMANY Administration Lorazepam 0.5 mg 05/28/22 10:05 05/29/22 21:09 Lorazepam 0.5 Mg Tab PO 0.5 mg TID PRN PRN Administration Magnesium Hydroxide 30 ml 05/25/22 12:00 Milk Of Magnesia 30 Ml Cup PO DAILY PRN PRN Methadone HCl 20 mg 05/29/22 09:15 05/29/22 10:19 Methadone Liquid 10 Mg/Ml PO 20 mg DAILY YASMANY Administration Multivitamins 1 tab 05/27/22 08:30 05/29/22 07:45 Multivitamin Tab PO 06/02/22 08:31 1 tab QAM YASMANY Administration Nicotine 21 mg 05/25/22 12:00 Nicotine 21 Mg/24 Hr Patch TD DAILY PRN PRN Nicotine 0 cartridge 05/27/22 07:53 05/29/22 09:11 Nicotine 10 Mg/Cartridge 30 Cart/Pkg IH 1 cartridge Q2H PRN PRN Administration Ondansetron HCl 4 mg 05/27/22 07:53 05/29/22 17:42 Ondansetron O.D.T. 4 Mg Tabef PO 4 mg Q8H PRN PRN Administration Pantoprazole Sodium 40 mg 05/26/22 20:00 05/29/22 20:59 Pantoprazole 40 Mg Tabcr PO 40 mg BID@729,1999 YASMANY Administration Polyethylene Glycol 17 gm 05/25/22 12:00 Polyethylene Glycol 3350 17 Gm Packet PO DAILY PRN PRN Constipation Sodium Chloride 0 ml 05/25/22 08:55 05/29/22 13:04 Normal Saline Flush 10 Ml Syr IVP 10 ml PRN PRN Administration Sucralfate 1 gm 05/25/22 22:00 05/29/22 20:59 Sucralfate 1 Gm Tab PO 1 gm AC & HS YASMANY Administration Thiamine HCl 100 mg 05/27/22 08:30 05/27/22 09:36 Thiamine 100 Mg Tab PO 06/04/22 08:31 100 mg QAM YASMANY Administration [facility] Active Problems Active Problems: Problem Status Onset Code Discharge planning issues Z02.9 DVT prophylaxis Z29.9 Alcoholism F10.20 DKA (diabetic ketoacidosis) E11.10 Acute upper GI bleeding K92.2 Acute hypotension I95.9 Altered mental status R41.82 Nausea R11.0 Substance abuse F19.10 Hyperlipidemia E78.5 Anxiety F41.9 Hypertension I10 Abscess of finger L02.519 Distal radius fracture, right S52.501A Internal derangement of right knee 11/14/20 M23.91 Type 2 diabetes mellitus with hypoglycemic insulin reaction E11.649 OMID (acute kidney injury) N17.9 Pneumonia J18.9 Lack of intravenous access Z78.9 DKA (diabetic ketoacidoses) E11.10 Diabetic nephropathy 02/01/15 Elevated serum creatinine 02/01/15 R79.89 Medical History Medical History Alcohol abuse Alcohol dependence in remission Anxiety Cellulitis of left hand (02/01/15) a. secondary to cat bite vs. IVDU b. has 13 cats at home c. denies ongoing IVDU at this time Closed fracture of distal end of right fibula (10/04/16) Constipation COPD (chronic obstructive pulmonary disease) Current smoker (02/01/15) x 29 years Depressive disorder Diabetes mellitus, type II a. chronic noncompliance b. multiple episodes of admission for [facility] c. ? 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 Hyperlipemia Hyperlipidemia statin started Non compliance with medical treatment (02/01/15) Panic disorder PTSD (post-traumatic stress disorder) Schizophrenia Umbilical hernia, incarcerated Ventral hernia without obstruction or gangrene Tobacco Smoking/Tobacco Use Status: Current every day Tobacco Type: cigarettes Alcohol Alcohol Intake: current Alcohol intake frequency: 0-2 drinks per day Substance Use Substance use: Current Sobriety Substance use type: does not use Details: drank twisted tea today Vital Signs and Lab Results Vital Signs Most Recent Vital Signs in EMR: Most Recent Vital Signs Temp Pulse Resp BP Pulse Ox 36.7 C 64 16 138/80 97 05/29/22 23:22 05/29/22 23:22 05/29/22 23:22 05/29/22 23:22 05/29/22 23:22 Point of Care Results Point of Care Results: Finger Stick Blood Glucose 285 05/29/22 20:59 Lab Results Result Diagrams: 05/30/22 07:08 05/30/22 07:08 Blood Type / Crossmatch: Patient ABO/Rh A Positive 05/25/22 Antibody Screen NEGATIVE 05/25/22 Crossmatch See Detail 05/25/22 Complete Blood Count: White Blood Count 4.44 10^3/uL (4.4-10.8) 05/30/22 07:08 Red Blood Count 5.14 10^6/uL (3.93-5.22) 05/30/22 07:08 Hemoglobin 13.8 g/dL (11.2-15.7) 05/30/22 07:08 Hematocrit 43.2 % (36.0-46.0) 05/30/22 07:08 Platelet Count 175 10^3/uL (130-400) 05/30/22 07:08 Venous Blood Lactate 2.1 mmol/L (0.6-1.4) H 05/25/22 18:07 Complete Metabolic Panel: Sodium Level 138 mmol/L (136-145) 05/30/22 07:08 Potassium Level 4.5 mmol/L (3.5-5.1) 05/30/22 07:08 Chloride Level 101 mmol/L (98-107) 05/30/22 07:08 Carbon Dioxide Level 29.9 mmol/L (21.0-32.0) 05/30/22 07:08 Blood Urea Nitrogen 18 mg/dL (7-18) 05/30/22 07:08 Creatinine 1.1 mg/dL (0.55-1.02) H 05/30/22 07:08 Magnesium Level 2.1 mg/dL (1.8-2.4) 05/30/22 07:08 Calcium Level 9.2 mg/dL (8.5-10.1) 05/30/22 07:08 Albumin 2.9 g/dL (3.4-5.0) L 05/26/22 05:10 Glucose Level 313 mg/dL (74-106) H 05/30/22 07:08 Liver Function Panel: Alanine Aminotransferase (ALT/SGPT) 28 U/L (14-59) 05/26/22 05:10 Aspartate Amino Transf (AST/SGOT) 43 U/L (15-37) H 05/26/22 05:10 Coagulation Panel: INR International Normalized Ratio 1.0 (0.9-1.1) 05/25/22 09:07 Prothrombin Time 9.8 sec (9.3-11.0) 05/25/22 09:07 Activated Partial Thromboplast Time 20.4 sec (21.0-27.5) L 05/25/22 09:07 Cardiac Panel: Troponin I < 50 ng/L (<or=60) 05/25/22 Arterial Blood Gas: No Data to Display Venous Blood Gas: Venous Blood pH 7.23 (7.31-7.41) L 05/25/22 15:45 Venous Blood Partial Pressure O2 53 mmHg 05/25/22 15:45 Venous Blood Partial Pressure CO2 22 mmHg (41-51) L 05/25/22 15:45 Venous Blood Oxygen Saturation 86 % 05/25/22 15:45 Venous Blood HCO3 9 mmol/L (23-28) L 05/25/22 15:45 Venous Blood Base Excess < -15 mmol/L (-2-3) L 05/25/22 15:45 Venous Blood Total Carbon Dioxide 9 mmol/L (24-29) L 05/25/22 15:45 Pancreas Panel: Lipase 336 U/L (73-393) 05/25/22 09:07 Thyroid Panel: Thyroid Stimulating Hormone (TSH) 1.14 uIU/mL (0.36-3.74) 05/25/22 09:07 Infectious Disease: Coronavirus (COVID-19)(PCR) Negative (Negative) 05/25/22 09:07 Coronavirus 2019 Source Nasal/Nares 05/25/22 09:07 Blood Cultures: No Data to Display Toxicology Panel: Ethyl Alcohol Level < 3.0 mg/dL (<10) 05/25/22 09:07 Urine Amphetamines Screen Negative (Negative) 05/25/22 14:05 Urine Benzodiazepines Screen Negative (Negative) 05/25/22 14:05 Urine Barbiturates Screen Negative (Negative) 05/25/22 14:05 Urine Cocaine Screen Negative (Negative) 05/25/22 14:05 Urine Methadone Screen Positive (Negative) A 05/25/22 14:05 Urine Opiates Screen Negative (Negative) 05/25/22 14:05 Ur Tricyclic Antidepressants Screen Negative (Negative) 05/25/22 14:05 Ur Tetrahydrocannabinol (THC) Scrn Negative (Negative) 05/25/22 14:05 Panel: No Data to Display Imaging and Studies Imaging and Studies Study information below may be from another EMR and interpreted by another provider. Please see original notes in EMR for more complete details. EKG Summary: 05/25/22: sinus. Echocardiogram Summary: 2015: LVEF 65-90%, mild MR. Anesthesia Assessment and Plan Anesthesia History Personal History: No History of Anesthesia Complications Family History: No Family History of Anesthesia Complications Exercise Tolerance Exercise Tolerance: Metabolic Equivalents<4 Pertinent Negatives Pertinent Negatives: No Symptoms of GERD and No Major Cardiovascular Symptoms or Complaints Cardiac & Pulmonary Exam Cardiac Exam: Normal S1/S2 Heart Sounds Pulmonary Exam: Clear Bilateral Breath Sounds Implantable Cardiac Device Does patient have a Pacemaker or an ICD?: No Airway Exam Known Difficult Airway: No Mallampati Class: 3 Mouth Opening: Normal (> 3cm) Thyromental Distance: Greater than 3 cm Neck Range of Motion: Full ROM Neck Circumference: Thick Teeth Condition: Edentulous ASA Classification ASA Score: ASA 3 Emergency Case?: No NPO Status NPO Status: NPO Clears >2 hours, Solids >8 hours Status Status: Not Per Patient Anesthesia Plan Resuscitation Status: Full Code Anesthesia Technique: General Anesthesia Airway Planned: Natural Airway Monitors Used: Standard Monitors Preoperative Comments:: 51 yo female for EGD due to ? GI bleed. Sig PMHx: ?gastroparesis, DKA, anxiety/schizophrenia, DM2, COPD/smoker, IVDA/ETOH abuse history.
[2022-05-30 07:42] LABS: Anion Gap 7.1 mmol/L (3-11); BUN 18 mg/dL (7-18); CO2 29.9 mmol/L (21.0-32.0); CREATININE 1.1 mg/dL (0.55-1.02); Calcium 9.2 mg/dL (8.5-10.1); Chloride 101 mmol/L (98-107); Estimated GFR 60.84 (mL/min/1.73m2); Glucose 313 mg/dL (74-106); Potassium 4.5 mmol/L (3.5-5.1); Sodium 138 mmol/L (136-145)
[2022-05-30 08:33] LABS: Magnesium 2.1 mg/dL (1.8-2.4); Vitamin B12 838 pg/mL (193-986)
[2022-05-30] MEDS: Insulin Glargine 300 UNITS/3 ML PEN 15 UNITS SC (08:38)
[2022-05-30] MEDS: ARIPiprazole 2 MG TAB PO (08:53)
[2022-05-30] MEDS: Gabapentin 100 MG CAP PO ×3 (08:53→21:17)
[2022-05-30] MEDS: Multivitamin TAB 1 TAB PO (08:53)
[2022-05-30] MEDS: Sucralfate 1 GM TAB PO ×4 (08:53→21:18)
[2022-05-30] MEDS: Methadone Liquid 10 MG/ML 20 MG PO (08:53)
[2022-05-30] MEDS: Thiamine 100 MG TAB PO (08:54)
[2022-05-30] MEDS: Pantoprazole 40 MG TABCR PO ×2 (08:54→21:17)
[2022-05-30] MEDS: Folic Acid 1 MG TAB PO (08:54)
[2022-05-30] MEDS: Insulin Aspart 300 UNITS/3 ML PEN SC ×5 (09:32→21:18)
[2022-05-30 09:35] VITALS: BP 158/90; PULSE 67; RESP 16; TEMP 36.4; O2SAT 98
--- NOTE | 2022-05-30 09:59 | PDOC.CMPRO ---
- If Service Date Differs Date of service: 05/30/22 Time of Service: 09:59 Care Management Progress Note S/O: Josefina continues to require hospitalization. Pt went down to the OR this morning for a Endoscopy. Dr. Zacarias consult is scheduled for tomorrow. CM will continue to follow. A: 51 year old female admitted to [facility] on 05/25/22 for DKA P: Anticipate Josefina will discharge home when medically ready. New [facility] RN will be ordered, if needed. [employer] Whe[employer]/[facility] referral sent at the request of Josefina and her . Josefina will follow up with her PCP and plan of care and transport with family. CM will provide support to Josefina and her discharge needs.
[2022-05-30 10:19] VITALS: BP 146/79; PULSE 63; RESP 16; TEMP 36.6; O2SAT 97
[2022-05-30] MEDS: Lactated Ringers 1,000 ML 80 ML IV (11:40)
--- NOTE | 2022-05-30 11:50 | STOM_PTH ---
PATIENT: Josefina Higginbotham LOC: U#:[id number] AGE/SX: 51/F ROOM: RE05/25/[address]: Jacky Galo : 1970 BED: A DIS: 05/31/2022 SPEC #: [id number] RECD: 05/30/22 12:50 STATUS: DARIO REFabrizio #: [id number] GAUDENCIO: 05/30/22 11:[address]: Jacky Galo DEPT: Surgical Specimen RECD BY: Taylor Cheatham ENTERED: 05/30/22 12:51 SP TYPE: STOMACH OTHR DR: Xin Stern, [facility] MD Robel Short Laura M Tissues: 1 - BIOPSY BOWEL 2 - STOMACH BIOPSY 3 - STOMACH BIOPSY 4 - ESOPHAGUS BIOPSY 5 - ESOPHAGUS BIOPSY Procedures: GROSS AND MICRO LEVEL 4 IMMUNOPEROXIDASE STAIN Comments: [id number]
[2022-05-30 14:17] VITALS: BMI 36.5
[2022-05-30 14:29] VITALS: BP 123/79; PULSE 86; RESP 18; TEMP 36.7; O2SAT 97
[2022-05-30 15:35] VITALS: BP 128/90; PULSE 79; RESP 18; TEMP 36.8; O2SAT 97
--- NOTE | 2022-05-30 15:58 | W.PM.PROGNOT ---
Date of Service Date of service: 05/30/22 Time of Service: 15:58 Assessment and Plan Assessment and plan (1) DKA (diabetic ketoacidosis): Status: Resolved Assessment and plan: Out of DKA. No hypoglycemic episodes in the last 24 hrs. Will uptitrate the long acting insulin. (2) Acute upper GI bleeding: Status: Resolved Assessment and plan: continue w/ PPI and carafate. EGD today w/o active bleeding; showing mild esophagitis. Concern for gastroparesis as well. Never had a gastric emptying study. Is being planned for this tomorrow. (3) Altered mental status: Status: Resolved Assessment and plan: At baseline. Continue abilify. Patient and agree to a psychiatry consult due to patient's exhibiting some delusional thinking. (4) Diabetic nephropathy: Status: Chronic Assessment and plan: Cr near baseline at this time. D/c IVF. (5) OMID (acute kidney injury): Status: Resolved Assessment and plan: As above (6) Alcoholism: Status: Acute Assessment and plan: Last drink 3 days prior to admission. No evidence of EtOH w/d at this time. Continue to monitor on CIWA (7) Gastroparesis: Status: Suspected Assessment and plan: For a gastric emptying study tomorrow. (8) DVT prophylaxis: Status: Acute Assessment and plan: SCDS (GI bleeding on this admission is a contraindication to chemical DVT ppx). (9) Discharge planning issues: Status: Acute Assessment and plan: Full code Anticipate discharge home tomorrow. Subjective Subjective Interval history since last seen: Ms Higginbotham states that she is feeling better today. She has been drinking a lot of tea. She denies dizziness, chest pain, shortness of breath, abdominal pain. Still had some nausea earlier. Ate lunch - 1.5 pieces of pizza. She does not recall ever having a gastric emptying study. Exam Narrative Exam Narrative: General: Pleasant obese female who is A&Ox3, NAD HEENT: EOMI, MMM Heart: RRR, no m/r/g Lungs: CTAB Abdomen: soft,nontender, nondistended Extremities: no edema BLEs Objective Last Vital Signs Temp 36.8 C 05/30/22 15:35 Pulse 79 05/30/22 15:35 Resp 18 05/30/22 15:35 BP 128/90 05/30/22 15:35 Pulse Ox 97 05/30/22 15:35 Laboratory Results - last 24 hr 05/30/22 05/30/22 05/30/22 07:08 07:08 07:08 WBC 4.44 RBC 5.14 Hgb 13.8 Hct 43.2 MCV 84 MCH 26.8 L MCHC 31.9 L D RDW 14.1 Plt Count 175 MPV 11.0 Immature Gran % 0.2 Neutrophils % 49.9 Lymphocytes % 38.7 Monocytes % 8.3 Eosinophils % 2.7 Basophils % 0.2 Nucleated RBC % 0.0 Absolute Neutrophils 2.21 Absolute Lymphocytes 1.72 Absolute Monocytes 0.37 Absolute Eosinophils 0.12 Absolute Basophils 0.01 Sodium 138 Potassium 4.5 Chloride 101 Carbon Dioxide 29.9 Anion Gap 7.1 BUN 18 Creatinine 1.1 H Est GFR (CKD-EPI 2020) 60.84 Glucose 313 H Calcium 9.2 Magnesium 2.1 Vitamin B12 838
--- NOTE | 2022-05-30 16:37 | W.ANESPOSTOP ---
Postoperative Evaluation Date, Time and Location Date Performed: 05/30/22 Time Performed: 16:37 Patient Location: Med/Surg Vital Signs Most Recent Imported Vital Signs: Most Recent Vital Signs Temp Pulse Resp BP Pulse Ox 36.8 C 79 18 128/90 97 05/30/22 15:35 05/30/22 15:35 05/30/22 15:35 05/30/22 15:35 05/30/22 15:35 Pain Score Most Recent Pain Score: Most Recent Pain Score Pain Level 2 05/30/22 15:35 Assessment Mental Status: Awake (Alert & Oriented to Patient Baseline) Airway and Respiratory Function: Patent airway with normal (patient baseline) respiratory exam Cardiovascular Function: Hemodynamically Stable Hydration Status: Adequately Hydrated Nausea & Vomiting: No Nausea or Vomiting Pain: Pt. Denies Any Pain Peripheral Nerve Block: Patient did not receive a nerve block
--- NOTE | 2022-05-30 17:52 | CHAPLAIN ---
I visited with Josefina this afternoon. Chandan, her , was in the room with her. Josefina shared some personal history which is troubling to her and other concerns about thoughts she has that she knows are not good. She believes in God, and that God is with her always, she said, and she said God speaks to her. She is concerned about doing what God would want her to do. She believes she has been forgiven for past sins. We talked about the spiritual aspect of her life and mental health concerns. She agreed to speak with a mental health counselor, but does not want to talk to anyone from [facility]. She said someone from there broke a confidence she shared. Corporate Real Estate Manager Maryjane Matthews RN, is working to schedule a visit from Dr. Caban for Josefina for tomorrow.
[2022-05-30] MEDS: LORazepam 0.5 MG TAB PO (21:18)
[2022-05-30 23:30] VITALS: BP 117/70; PULSE 64; RESP 18; TEMP 36.5; O2SAT 95
[2022-05-31 07:04] LABS: Abs Immature Grans 0.01 10^3/uL (0.0-0.06); Absolute Basophil Count 0.01 10^3/uL (0.0-0.2); Absolute Eosinophil Count 0.17 10^3/uL (0.0-0.7); Absolute Lymphocyte Count 1.87 10^3/uL (1.2-3.4); Absolute Monocyte Count 0.42 10^3/uL (0.1-0.8); Absolute Neutrophil Count 2.67 10^3/uL (1.2-6.7); Basophils % 0.2; Eosinophils % 3.3; HCT 41.4 % (36.0-46.0); HGB 13.8 g/dL (11.2-15.7); Immature Grans % 0.2; Lymphocytes % 36.3; MCH 27.5 pg (27.0-33.0); MCHC 33.3 % (32.0-36.0); MCV 83 fL (80-95); MPV 10.4 fL (8.0-11.0); Monocytes % 8.2; Neutrophils % 51.8; Platelet Count 219 10^3/uL (130-400); RBC 5.02 10^6/uL (3.93-5.22); RDW 14.2 % (11.7-14.6); RDW-SD 42.9 fL; WBC 5.15 10^3/uL (4.4-10.8)
[2022-05-31 07:13] LABS: BUN 20 mg/dL (7-18); CREATININE 1.1 mg/dL (0.55-1.02); Calcium 9.1 mg/dL (8.5-10.1); Chloride 105 mmol/L (98-107); Estimated GFR 60.84 (mL/min/1.73m2); Glucose 245 mg/dL (74-106); Potassium 3.9 mmol/L (3.5-5.1); Sodium 140 mmol/L (136-145)
[2022-05-31 07:26] VITALS: BP 164/89; PULSE 74; RESP 16; TEMP 37; O2SAT 97
--- NOTE | 2022-05-31 07:30 | DI.NM_ITS ---
Exam(s) NM GASTRIC EMPTYING CLINICAL HISTORY: nausea/poorly controlled DM. COMPARISON: No exams were available for comparison EXAMINATION: PO Dose: 1 mCi Sulfur colloid in test meal. Images: According to protocol. FINDINGS: Patient gastric emptying results: 1 hour: 45.3%. ([facility] normal gastric range: 10-63 % empty.) 2 hour: 97.7%. ([facility] normal gastric range: 40-70 % empty.) 4 hour: 98.7%. ([facility] normal gastric range: 91-100 % empty.) T 1/2: 52 minutes. IMPRESSION: 1. No evidence of delayed gastric emptying. [facility] guidelines: 40% or more gastric emptying at 90 minutes is considered normal. Normal T 1/2 < 50 mi nutes. < 30% at 1 hour signifies abnormal rapid gastric emptying.
--- NOTE | 2022-05-31 08:25 | W.ANESPOSTOP ---
Postoperative Evaluation Date, Time and Location Date Performed: 05/31/22 Time Performed: 08:26 Patient Location: Med/Surg Vital Signs Most Recent Imported Vital Signs: Most Recent Vital Signs Temp Pulse Resp BP Pulse Ox 37.0 C 74 16 164/89 H 97 05/31/22 07:26 05/31/22 07:26 05/31/22 07:26 05/31/22 07:26 05/31/22 07:26 Most Recent Vital Signs Temp Pulse Resp BP Pulse Ox 36.8 C 79 18 128/90 97 05/30/22 15:35 05/30/22 15:35 05/30/22 15:35 05/30/22 15:35 05/30/22 15:35 Pain Score Most Recent Pain Score: Most Recent Pain Score Pain Level 0 05/31/22 07:26 Assessment Mental Status: Awake (Alert & Oriented to Patient Baseline) Airway and Respiratory Function: Patent airway with normal (patient baseline) respiratory exam Cardiovascular Function: Hemodynamically Stable Hydration Status: Adequately Hydrated Nausea & Vomiting: No Nausea or Vomiting Pain: Pt. Denies Any Pain Peripheral Nerve Block: Patient did not receive a nerve block
--- NOTE | 2022-05-31 09:20 | PDOC.CMPRO ---
- If Service Date Differs Date of service: 05/31/22 Time of Service: 09:20 Care Management Progress Note S/O: Josefina had additional GI testing today, which lasted the majority of the day. Dr. Zacarias was planned for today, however patient was unavailable today and Dr. Zacarias is unavailable until tomorrow. Dr. Zacarias was able to review case with Dr. Santos. Per Dr. Santos, Kareen is cleared for discharge. Community follow up is recommended. A: 51 year old female admitted to [facility] on 05/25/22 for DKA P: Anticipate, Josefina will discharge home when medically ready. New [facility] RN will be ordered, if needed. [facility] Wheels/[facility] referral sent at the request of Josefina and her . Josefina will follow up with her PCP and plan of care and transport with family. CM will provide support to Josefina and her discharge needs.
[2022-05-31] MEDS: Gabapentin 100 MG CAP PO ×2 (10:08→14:04)
[2022-05-31] MEDS: Methadone Liquid 10 MG/ML 20 MG PO (10:08)
[2022-05-31] MEDS: ARIPiprazole 2 MG TAB PO (10:08)
[2022-05-31] MEDS: Insulin Glargine 300 UNITS/3 ML PEN 20 UNITS SC (10:09)
[2022-05-31] MEDS: Insulin Aspart 300 UNITS/3 ML PEN SC ×5 (10:10→17:26)
--- NOTE | 2022-05-31 13:59 | W.INDIABCONS ---
Date of service: 05/31/22 Time of Service: 13:59 Diabetes Inpatient Consult Reason for Visit: DM DESCRIPTION/ASSESSMENT: Josefina was admitted with DKA with anemia and hx of alcoholism, opiate dependenance, on methadone, PMH: COPD, HTN, HLD, Schizoprenia, obesity. Josefina reports that she stopped eating and taking her lantus (38 units HS) since she thought that her food was tampered with. Does not want to take any medications for her schizoprenia. Most recent A1C (03/03/22): 7.5% indicates well controlled diabetes in view of co morbidities. Following diabetic diet, receiving sliding scale insulin and lantus HS. Just returned from gastric empyting study to determine if gastroparesis of concern INTERVENTION: Provided education on glycemic management and ideal diet for gastroparesis. Encouraged Josefina to follow up in out patient setting. Provided written material and contact information. PLAN: Josefina to follow up in outpatient setting for weight and diabetes self management education. Time Spent in Nutritional Counseling and Treatment: 20
[2022-05-31 14:01] VITALS: BP 110/73
[2022-05-31 16:10] VITALS: BP 158/90; PULSE 67; RESP 16; TEMP 36.9; O2SAT 96
--- NOTE | 2022-05-31 17:13 | DSE_ITS ---
Date of service: 05/31/22 Time of Service: 17:13 DS: Diagnosis Discharge Diagnosis (1) DKA (diabetic ketoacidosis): Status: Resolved (2) Acute upper GI bleeding: Status: Resolved (3) Altered mental status: Status: Resolved (4) Diabetic nephropathy: Status: Chronic (5) OMID (acute kidney injury): Status: Resolved (6) Alcoholism: Status: Chronic (7) Gastroparesis: Status: Ruled-out (8) Delusional ideas: Status: Acute (9) Schizophrenia: (10) PTSD (post-traumatic stress disorder): (11) Non compliance with medical treatment: Discharge Plan Disposition Patient Disposition: HOME Condition: Good Discharge Details Reason For Visit: DKA,Hypotension,Hematemesis Admit Date/Time: 05/25/22 11:48 Admit Provider: Jacky Galo Attending Provider: Jacky Galo [facility] Course: Ms Higginbotham is a 51 year old female with PMHx of IDDM2, HTN, hyperlipidemia, alcohol abuse, opioid dependence on methadone, who was admitted to [facility] hospitalist service on 05/25/22 with DKA, acute upper GI bleeding, and hypotension due to symptomatic anemia. She was treated with a transfusion of 1 unit of pRBCs, intravenous fluids and insulin, protonix drip. DKA resolved by 05/26/22, and the patient was transitioned to basal bolus insulin. She was transferred out of the ICU on 05/26/22. She did have an episode of hypoglycemia on 05/28/22, which warranted lowering the doses of her insulin. Since then, hypoglycemia had not recurred. The patient is being discharged home on essentialy her prior to admission regimen. She is being encouraged to take her insulin, which she was not prior to her hospitalization. As far as her upper GI bleeding, surgical consultation was pursued. The patient was initially treated medically for her GI bleeding given her h/o alcoholic gastritis in the past but did end up undergoing an EGD on 05/30/22, which showed mild esophagitis and no active source of bleeding. We also ruled out gastroparesis given her persistent complaints of nausea. Her Gastric emptying study was negative on 05/31/22, her nausea has resolved, and she is tolerating PO. The patient was noted to be altered on admission. During her hospitalization, she was noted to verbalize some delusional ideas, and her had requested a psychiatric evaluation, which we were not able to accomplish in the time frame of this hospitalization due to scheduling conflicts with psychiatry. The patient denies suicidal and homicidal ideation and is felt to be safe for discharge home with behavioral health follow up via her PCP's office. This referral was sent. She was initiated on Abilify 2 mg po daily on this admission. The patient did have evidence of slight alcohol withdrawal on 05/27/22, but her symptoms have entirely resolved by now. She was initiated on low dose neurontin for symptoms of neuropathy. She is medically stable for discharge home today with follow up with her PCP in 1-2 weeks as well as with general surgery. Care for patient as well as completion of her discharge summary on day of discharge took 45 minutes. Home Meds and New Rx's Prescriptions: New folic acid 1 mg Tablet 1 mg PO QAM Qty: 30 0RF gabapentin 100 mg Capsule 100 mg PO TID Qty: 90 0RF multivitamin [Multiple Vitamins] Tablet 1 tab PO QAM Qty: 30 0RF sucralfate 1 gram Tablet 1 g PO AC & HS Qty: 120 0RF aripiprazole [Abilify] 2 mg Tablet 2 mg PO DAILY Qty: 30 0RF thiamine mononitrate (vit B1) [Vitamin B-1 (mononitrate)] 100 mg Tablet 100 mg PO QAM Qty: 30 0RF naloxone [Narcan] 4 mg/actuation spray,non-aerosol 4 mg intranasal Q2-3M PRNQty: 2 0RF Rx Instructions: spray 1 dose into ONE nostril; alternate nostrils w each dose until help arrives Continued mupirocin 2 % ointment 1 applic TP TID PRN (Reason: skin infection) Qty: 22 1RF clotrimazole 1 % cream 1 applic TP BID Qty: 28 2RF Rx Instructions: apply to feet twice a day until rash is gone albuterol sulfate 2.5 mg/0.5 mL solution for nebulization 5 mg IH Q6H PRN (Reason: shortness of breath or wheezing) Qty: 30 2RF albuterol sulfate 90 mcg/actuation HFA aerosol inhaler 2 puff IH QID PRN (Reason: shortness of breath or wheezing) Qty: 3 4RF senna 8.6 mg capsule 8.6 mg PO BID PRN (Reason: constipation) Qty: 60 2RF miconazole nitrate 2 % cream 1 applic TP BID PRN (Reason: vaginitis) Qty: 28 2RF Rx Instructions: local application twice a day as needed (itching,burning) docusate sodium [Colace] 100 mg capsule 100 mg PO BID Qty: 180 3RF lisinopril 20 mg tablet 20 mg PO DAILY Qty: 90 3RF nicotine 14 mg/24 hr patch 24 hour 1 patch transdermal DAILY Qty: 28 0RF triamcinolone acetonide 0.1 % ointment 1 applic topical BID Qty: 80 0RF Rx Instructions: to affected area (DME) lancets [FreeStyle Lancets] 28 gauge misc 1 ea Miscellaneous QID Qty: 400 4RF Rx Instructions: Check blood sugar 4times a day terbinafine HCl [Lamisil AT] 1 % cream 1 applic topical BID Qty: 30 1RF Rx Instructions: to affected area on feet epinephrine [EpiPen 2-Tejinder] 0.3 MG/0.3 ML auto-injector 0.3 mg IM ONCE Qty: 1 (DME) blood-glucose meter [FreeStyle Lite Meter] Kit See Dose Instructions .ROUTE .MEDSUPPLY Qty: 1 0RF Dose Instruction: As directed Rx Instructions: As directed/ check QiD/ cholecalciferol (vitamin D3) 25 mcg (1,000 unit) capsule 25 mcg PO DAILY Qty: 90 3RF insulin aspart U-100 [Novolog Flexpen U-100 Insulin] 100 unit/mL (3 mL) insulin pen See Rx Instructions .ROUTE .COMPLEX Qty: 15 0RF Dose Instruction: INJECT 5 UNITS UNDER THE SKIN THREE TIMES DAILY WITH MEALS Rx Instructions: INJECT 5 UNITS UNDER THE SKIN THREE TIMES DAILY WITH MEALS (DME) pen needle, diabetic 31 gauge x 1/3 needle 1 ea Miscellaneous QID Qty: 200 6RF Rx Instructions: 31G X 3/16 needle Dx: E11.8 (DME) Blood Glucose Test Strip 1 ea Miscellaneous qid and Qty: 400 4RF Rx Instructions: Free Style Lite strips. PT USES INSULIN. TESTS QID. DIAGNOSIS CODE E11.649 atorvastatin 20 mg tablet 20 mg PO DAILY Qty: 90 0RF lorazepam 1 mg tablet 1 mg PO DAILY PRN (Reason: anxiety) Qty: 10 0RF Rx Instructions: Do not fill before 03/31/2022 methadone 10 mg/5 mL Solution 22 mg PO DAILY Rx Instructions: prescribed @ [facility] per pt ondansetron HCl 4 mg tablet 2 mg PO DAILY PRN (Reason: nausea and vomiting) ondansetron 4 mg tablet,disintegrating 2 mg PO DAILY Changed omeprazole 40 mg capsule,delayed release(DR/EC) 40 mg PO BID Qty: 60 3RF insulin glargine 100 unit/mL (3 mL) insulin pen 35 unit SC QAM Qty: 30 11RF Discontinued diclofenac potassium 50 mg tablet 50 mg PO TID PRN (Reason: leg pain) Qty: 30 1RF Rx Instructions: take one tablet with food 3 times a day as needed for pain Discharge Instructions Instructions: Sucralfate (By mouth), Omeprazole (By mouth), Gastrointestinal Bleeding (DC), Abuse of Alcohol (DC), Anemia (DC) Additional Instructions: Return to the hospital with any recurrent bleeding, if you develop a fever, chest pain, or shortness of breath. Abstain from alcohol. Take your insulin as prescribed. Follow up with your PCP in 1-2 weeks and with behavioral health. Follow up with general surgery in 3-4 weeks. Stand Alone Forms: Nursing Discharge Form Referrals: Xin Stern NP [Primary Care Provider] - (Please call and make an Appointment in the next 2 weeks ) Martha Molina NP [ [facility] STAFF PHYSICIAN] - (Please call and make an Appointment in the next 2 weeks ) Tri Huston DO [OSTEOPATHIC DOCTOR] - (Please call and make an Appointment [phone]) Activity:: Activity as Tolerated Equipment/Supplies:: No Equipment Needed Diet:: Carb Counting Discharge Orders Discharge Orders: Discharge Order (Routine); Ordered 05/31/22 Ordered By: Makayla Santos DS: Summary Time Spent with Patient providing and/or coordinating discharge services: Greater than 30 minutes Status at Discharge Functional status at discharge: independent ambulation Overall status at discharge: patient is back to baseline Mental Status: mental status grossly normal Speech and Movement: speech and movement normal Mood: congruent mood Affect: normal affect Exam Narrative Exam Narrative: General: Pleasant obese female who is A&Ox3, NAD HEENT: EOMI, MMM Heart: RRR, no m/r/g Lungs: CTAB Abdomen: soft,nontender, nondistended Extremities: no edema BLEs Psych Mental Status: mental status grossly normal Speech and Movement: speech and movement normal Mood: congruent mood Affect: normal affect DS: Data Vitals/I&O Vitals and I&O: Vital Signs Temperature 36.9 C 05/31/22 16:10 Temperature Source Tympanic 05/31/22 16:10 Pulse 67 05/31/22 16:10 Pulse Rhythm Regular 05/31/22 11:16 Pulse 70 05/27/22 10:00 Respiratory Rate 16 05/31/22 16:10 Respiratory Effort Non-Labored 05/31/22 11:16 Respiratory Depth Normal 05/31/22 11:16 Respiratory Pattern Normal 05/31/22 11:16 Blood Pressure 158/90 H 05/31/22 16:10 Blood Pressure Mean 89 05/28/22 02:01 Blood Pressure Position Supine 05/27/22 07:30 Pulse Oximetry 96 05/31/22 16:10 Oxygen Delivery Method Room Air 05/31/22 16:10 Oxygen Flow Rate 0 05/31/22 16:10 Pain Level 0 05/31/22 10:08 Intake & Output 05/30/22 05/31/22 05/31/22 23:59 11:59 23:59 Intake Total 1000 / 2000 Output Total 450 / 1250 600 / 850 250 / 850 Balance 550 / 750 -600 / -850 -250 / -850 Weight 85.5 kg Intake: IV 1000 / 2000 Output: Urine 450 / 1250 600 / 850 250 / 850 Other: Urine Color Yellow Yellow Urine Appearance Clear Clear Clear Urine Odor None Comment pT voided in toilet Voiding Methods Toilet Toilet Toilet Data Completed and Pending Completed studies during hospitalization [Text1]: CXR 05/25/22: No acute pulmonary findings on this single AP portable view of the chest. Scarring in the right lung base is unchanged from at least 2018.? This patient had prior infiltrate at this location in March 2015 (with no evidence of recurrence of infiltrate at this time on this single view study). Gastric emptying study 05/31/22: 1. No evidence of delayed gastric emptying. Labs on day of discharge: Labs from last 24 hours 05/31/22 05/31/22 06:50 06:50 WBC 5.15 RBC 5.02 Hgb 13.8 Hct 41.4 MCV 83 MCH 27.5 MCHC 33.3 RDW 14.2 Plt Count 219 MPV 10.4 Immature Gran % 0.2 Neutrophils % 51.8 Lymphocytes % 36.3 Monocytes % 8.2 Eosinophils % 3.3 Basophils % 0.2 Nucleated RBC % 0.0 Absolute Neutrophils 2.67 Absolute Lymphocytes 1.87 Absolute Monocytes 0.42 Absolute Eosinophils 0.17 Absolute Basophils 0.01 Sodium 140 Potassium 3.9 Chloride 105 Carbon Dioxide 31.0 Anion Gap 4.0 BUN 20 H Creatinine 1.1 H Est GFR (CKD-EPI 2020) 60.84 Glucose 245 H Calcium 9.1 Magnesium 2.0 PFSH All Active Problems (Updated 05/31/22 @ 17:15 by Makayla Santos MD) Delusional ideas (Acute) Discharge planning issues (Acute) DVT prophylaxis (Acute) Alcoholism (Chronic) Acute hypotension (Acute) Nausea (Acute) Chronic nausea-occasional use of generic Zofran. She knows to use this sparingly-aware of side effects potentially with methadone Substance abuse (Acute) History of opiate abuse, more remotely benzodiazepine abuse, followed by [facility] in [place], on methadone Hyperlipidemia (Acute) Anxiety (Chronic) [facility], plan is only occasional exam lorazepam for panic attack, reviewed with [facility] Plan is a limit of 10/month of lorazepam Patient already has Narcan at home 01/31/2022 patient given 1 refill of 10 tabs by phone, she will need an office visit for any further refills Hypertension (Chronic) Abscess of finger (Acute) Distal radius fracture, right (Acute) Internal derangement of right knee (Acute 11/14/20) Type 2 diabetes mellitus with hypoglycemic insulin reaction (Acute) Pneumonia (Acute) Lack of intravenous access (Acute) DKA (diabetic ketoacidoses) (Acute) Diabetic nephropathy (Chronic 02/01/15) Elevated serum creatinine (Acute 02/01/15) Medical History Alcohol abuse Alcohol dependence in remission Anxiety Cellulitis of left hand (02/01/15) a. secondary to cat bite vs. IVDU b. has 13 cats at home c. denies ongoing IVDU at this time Closed fracture of distal end of right fibula (10/04/16) Constipation COPD (chronic obstructive pulmonary disease) Current smoker (02/01/15) x 29 years Depressive disorder Diabetes mellitus, type II a. chronic noncompliance b. multiple episodes of admission for [facility] c. ? 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 Hyperlipemia Hyperlipidemia statin started Non compliance with medical treatment (02/01/15) Panic disorder PTSD (post-traumatic stress disorder) Schizophrenia Umbilical hernia, incarcerated Ventral hernia without obstruction or gangrene Social History Smoking/Tobacco Use Status: Current every day Tobacco Type: cigarettes Smoking risk assessment performed?: Yes Alcohol Intake: current Alcohol Intake frequency: 0-2 drinks per day Drug use: Current Sobriety Substance use type: does not use Details: drank twisted tea today Current gender identity: female Do you feel safe at home: Yes Do you feel safe in your relationship?: Yes Additional Social history: Ms. Higginbotham has a significant other in the form of a boyfriend. Her only child, a son, reportedly over the last 1 1/2 years. Continued tobacco use. 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 Intermitted EtOH use.
[2022-05-31] MEDS: Sucralfate 1 GM TAB PO (17:22)
--- NOTE | 2022-06-01 14:41 | PDOC.CMDIS ---
- If Service Date Differs Date of service: 05/31/22 Time of Service: 17:58 LACE Index Scoring Tool - Questions: Length of Stay (in days): 4 - 6 Acuity (Admit via E.D.?): Yes Comorbidities: Diabetes w/o Complication, Chronic Pulmonary Disease E.D. Visits: 3 - Answers: Total Score: 13 Risk of Readmission: High Risk Care Management Discharge Reason for Hospitalization: DKA Discharge Plan: Josefina is medically ready for discharge and is discharged home via private vehicle with significant other Chandan. New RX's are transmitted to [facility]. Josefina is discharged from [facility] after office hours and agrees to call her PCP, [facility] and the office of Martha Molina NP(Telepsych) on to make follow up appointments within 2 weeks. CCC/Loree at [facility] is notified of Josefina's discharge. In addition, requested a referral to their Behavorial Health Specialist. CCC will reach out to Josefina via phone post discharge. Patient/Family Education Needs: Review discharge instructions, medications, limitations and plan to follow up with community providers within the next 2 weeks. Patient will need to call her PCP, [facility] and [facility]/Telepsych to schedule these appointmens, contact info and ask me three will be reviewed. Services Needed at Discharge: Outpatient Therapy
== END 2022-05-31 18:42 | disposition home or self-care (01) | DRG 638 ==
LOC: ER 12:46 → ICU 13:05 → MS 05-28 14:59
PROVIDERS: Internal Medicine; Student in an Organized Health Care Education/Training Program; Surgery; Admitting Provider Internal Medicine; Emergency Provider Physician Assistant; PCP Nurse Practitioner Family; Visit Provider Internal Medicine
PROC: 0DJ68ZZ Inspection of Stomach, Via Natural or Artificial Opening Endoscopic (ICD-10-PCS; CPT 43235; principal; 2022-05-30 09:00)
DX: E11.10 Type 2 diabetes mellitus with ketoacidosis without coma (principal); N17.9 Acute kidney failure, unspecified; K92.0 Hematemesis; E87.0 Hyperosmolality and hypernatremia; F10.239 Alcohol dependence with withdrawal, unspecified; E78.5 Hyperlipidemia, unspecified; J44.9 Chronic obstructive pulmonary disease, unspecified; F43.10 Post-traumatic stress disorder, unspecified; I10 Essential (primary) hypertension; F20.9 Schizophrenia, unspecified; I95.9 Hypotension, unspecified; F10.20 Alcohol dependence, uncomplicated; F11.20 Opioid dependence, uncomplicated; E11.21 Type 2 diabetes mellitus with diabetic nephropathy; K59.00 Constipation, unspecified; F17.210 Nicotine dependence, cigarettes, uncomplicated; F32.A Depression, unspecified; F41.0 Panic disorder [episodic paroxysmal anxiety]; Z79.4 Long term (current) use of insulin; Z91.14 Patient's other noncompliance with medication regimen; E11.649 Type 2 diabetes mellitus with hypoglycemia without coma; D64.9 Anemia, unspecified; E11.40 Type 2 diabetes mellitus with diabetic neuropathy, unspecified; K22.89 Other specified disease of esophagus; K31.89 Other diseases of stomach and duodenum; B96.81 Helicobacter pylori [H. pylori] as the cause of diseases classified elsewhere
CPT/HCPCS: 43239; 36415; 78265; 80048; 80053; 80076; 80307; 82805; 83690; 86850; 86900; 86901; 86920; 87635; 88305; 93005; 96361; 96372; 96374; 96375; 96376; 99291; 99292; 71045; 80320; 80329; 81003; 82607; 83605; 83735; 84100; 84443; 84484; 85014; 85018; 85025; 85610; 85730; 88361; 93010; 99232; 99239; J0780; J2270; J2310; J2405; J3490; J7060; P9016

== ENCOUNTER 2022-06-02 09:46 | Inpatient (IN) | payer MEDICAID, SELFPAY ==
[2022-06-02] VITALS (127 sets, daily range): BP systolic 50–127; BP diastolic 33–73; PULSE 58–94; RESP 0–99; TEMP 36.4–37; O2SAT 88–100
--- NOTE | 2022-06-02 10:11 | W.ED.GENAD ---
Discharge Plan Disposition Patient Disposition: [facility] INPATIENT Condition: Serious Discharge Details Clinical Impression: Diabetic keto-acidosis Admit Date/Time: 06/02/22 12:45 Admit Provider: Makayla Santos Attending Provider: Makayla Santos Primary Care Provider: Xin Stern ED Provider: Aggie Zuñiga Discharge Data Discharge Date/Time-TO BE ENTERED AT DEPARTURE: 06/02/22 13:55 Medical Decision Making 51-year-old female presents to the ER with chief complaint of nausea vomiting and high blood sugar. Patient reports that she began throwing up last night. She was recently admitted and discharged 2 days ago for DKA. Patient reports that she lost her insulin and has not taken any long-acting insulin since her release from the hospital. She reports taking 5 units of short acting insulin last night. Upon initial presentation blood sugar is 533. Patient is alert and oriented. Blood pressure initially was slightly low at 74 systolic. However recheck is 100/60. She is alert oriented has no other complaints. Denies any diarrhea. She does have a past medical history of alcoholism, GI bleeding, hyperlipidemia, anxiety, hypertension type 2 diabetes acute kidney injury pneumonia schizophrenia. Of note according to medical record review patient does have a history of noncompliance to the medications. BGL upon initial presentation is 533. Liter normal saline and 4 of Zofran ordered. Patient is requesting refill of her insulin she reports losing her long-acting insulin. Informed by care management that after discussion with her patient did not lose her insulin. They did merchandise pickup/receiving associate her medication today. He reports that she refuses to take her insulin because it is poison. She reports that she has been having delusions for quite some time and per care management report during the hospital stay she was stating that she was preparing to be the bride of Jhonny. Mental health consult placed. 1101: Spoke with mental health Aurea with [facility] human services. Discussed patient case and request for mental health consult. 1227: Per mental health patient given referrals for counselor and they report she is denying any delusions. She I did discuss admission with her for DKA due to anion gap 24 patient verbalized understanding and and is in agreement with the plan. CBC shows white blood cell count of 7.75, absolute lymphocytes 1.15, sodium 132 potassium 4.8 chloride 91 anion gap is 24.2 BUN is 29 creatinine 1.6 GFR 38 glucose of 622 initial troponin within normal limits, urine shows 80 ketones of 500 1246: Spoke with hospitalist Dr. Santos regarding patient case in detail she is familiar with the patient. She agrees to accept patient for admission for DKA. HPI General Mode of arrival: ambulatory. Date/Time Provider Initiated Documentation: 06/02/22 09:49. Limitations to Documentation: no limitations. Information obtained by: patient, RN notes reviewed and old records reviewed. HPI Narrative: 51-year-old female presents to the ER with chief complaint of nausea vomiting and high blood sugar. Patient reports that she began throwing up last night. She was recently admitted and discharged 2 days ago for DKA. Patient reports that she lost her insulin and has not taken any long-acting insulin since her release from the hospital. She reports taking 5 units of short acting insulin last night. Upon initial presentation blood sugar is 533. Patient is alert and oriented. Blood pressure initially was slightly low at 74 systolic. However recheck is 100/60. She is alert oriented has no other complaints. Denies any diarrhea. She does have a past medical history of alcoholism, GI bleeding, hyperlipidemia, anxiety, hypertension type 2 diabetes acute kidney injury pneumonia schizophrenia. Of note according to medical record review patient does have a history of noncompliance to the medications. Related Data Home Medications Medication Instructions Recorded Confirmed epinephrine 0.3 mg/0.3 mL 0.3 mg IM ONCE #1 pen 04/01/13 06/02/22 injection, auto-injector (EpiPen 2-Tejinder) blood-glucose meter (FreeStyle #1 ea 12/09/19 06/02/22 Lite Meter kit) clotrimazole 1 % topical cream 1 applic topical BID #28 grams 09/20/20 06/02/22 mupirocin 2 % topical ointment 1 applic topical TID PRN skin 09/20/20 06/02/22 infection #22 grams methadone 10 mg/5 mL oral solution 22 mg PO DAILY 11/15/20 06/02/22 albuterol sulfate 2.5 mg/0.5 mL 5 mg inhalation Q6H PRN shortness 12/31/20 06/02/22 solution for nebulization of breath or wheezing #30 ea cholecalciferol (vitamin D3) 25 25 mcg PO DAILY #90 caps 08/29/21 06/02/22 mcg (1,000 unit) capsule docusate sodium 100 mg capsule 100 mg PO BID #180 caps 10/25/21 06/02/22 (Colace) lisinopril 20 mg tablet 20 mg PO DAILY #90 tabs 10/25/21 06/02/22 miconazole nitrate 2 % topical 1 applic topical BID PRN vaginitis 10/25/21 06/02/22 cream #28 grams nicotine 14 mg/24 hr daily 1 patch transdermal DAILY #28 ea 10/25/21 06/02/22 transdermal patch lancets 28 gauge (FreeStyle #400 ea 03/03/22 06/02/22 Lancets) terbinafine HCl 1 % topical cream 1 applic topical BID #30 grams 03/03/22 06/02/22 (Lamisil AT) blood sugar diagnostic (Blood #400 strips 03/15/22 06/02/22 Glucose Test strips) pen needle, diabetic 31 gauge x #200 ea 03/15/22 06/02/22 1/3 atorvastatin 20 mg tablet 20 mg PO DAILY #90 tabs 03/28/22 06/02/22 ondansetron 4 mg disintegrating 2 mg PO DAILY 05/28/22 06/02/22 tablet ondansetron HCl 4 mg tablet 2 mg PO DAILY PRN nausea and 05/28/22 06/02/22 vomiting aripiprazole 2 mg tablet (Abilify) 2 mg PO DAILY #30 tabs 05/31/22 06/02/22 folic acid 1 mg tablet 1 mg PO QAM #30 tabs 05/31/22 06/02/22 gabapentin 100 mg capsule 100 mg PO TID #90 caps 05/31/22 06/02/22 insulin glargine 100 unit/mL (3 35 unit (0.35 mL) subcut QAM #30 mL 05/31/22 06/02/22 mL) subcutaneous pen multivitamin (Multiple Vitamins 1 tab PO QAM #30 tabs 05/31/22 06/02/22 tablet) naloxone 4 mg/actuation nasal 4 mg intranasal Q2-3M PRN #2 ea 05/31/22 06/02/22 spray (Narcan) omeprazole 40 mg capsule,delayed 40 mg PO BID #60 caps 09/07/22 09/09/22 release sucralfate 1 gram tablet 1 g PO AC & HS #120 tabs 05/31/22 06/02/22 thiamine mononitrate (vit B1) 100 100 mg PO QAM #30 tabs 05/31/22 06/02/22 mg tablet (Vitamin B-1 (mononitrate)) Novolog Flexpen U-100 Insulin 100 See Rx Instructions .Route 06/01/22 06/02/22 unit/mL (3 mL) subcutaneous .COMPLEX #15 mL (insulin aspart U-100) albuterol sulfate 90 mcg/actuation 2 puff inhalation QID PRN 06/01/22 06/02/22 aerosol inhaler shortness of breath or wheezing #3 ea triamcinolone acetonide 0.1 % See Rx Instructions .Route 06/01/22 06/02/22 topical ointment .COMPLEX #80 grams lorazepam 1 mg tablet 1 mg PO DAILY PRN anxiety #10 tabs 06/02/22 06/02/22 sennosides 8.6 mg capsule (senna) 8.6 mg PO BID PRN constipation #60 06/02/22 06/02/22 caps Previous Rx's Medication Instructions Recorded blood-glucose meter (Lindayle #1 ea 12/09/19 Lite Meter kit) clotrimazole 1 % topical cream 1 applic topical BID #28 grams 09/20/20 mupirocin 2 % topical ointment 1 applic topical TID PRN skin 09/20/20 infection #22 grams albuterol sulfate 2.5 mg/0.5 mL 5 mg inhalation Q6H PRN shortness 12/31/20 solution for nebulization of breath or wheezing #30 ea cholecalciferol (vitamin D3) 25 25 mcg PO DAILY #90 caps 08/29/21 mcg (1,000 unit) capsule docusate sodium 100 mg capsule 100 mg PO BID #180 caps 10/25/21 (Colace) lisinopril 20 mg tablet 20 mg PO DAILY #90 tabs 10/25/21 miconazole nitrate 2 % topical 1 applic topical BID PRN vaginitis 10/25/21 cream #28 grams nicotine 14 mg/24 hr daily 1 patch transdermal DAILY #28 ea 10/25/21 transdermal patch lancets 28 gauge (FreeStyle #400 ea 03/03/22 Lancets) terbinafine HCl 1 % topical cream 1 applic topical BID #30 grams 03/03/22 (Lamisil AT) blood sugar diagnostic (Blood #400 strips 03/15/22 Glucose Test strips) pen needle, diabetic 31 gauge x #200 ea 03/15/22 1/3 atorvastatin 20 mg tablet 20 mg PO DAILY #90 tabs 03/28/22 aripiprazole 2 mg tablet (Abilify) 2 mg PO DAILY #30 tabs 05/31/22 folic acid 1 mg tablet 1 mg PO QAM #30 tabs 05/31/22 gabapentin 100 mg capsule 100 mg PO TID #90 caps 05/31/22 insulin glargine 100 unit/mL (3 35 unit (0.35 mL) subcut QAM #30 mL 05/31/22 mL) subcutaneous pen multivitamin (Multiple Vitamins 1 tab PO QAM #30 tabs 05/31/22 tablet) naloxone 4 mg/actuation nasal 4 mg intranasal Q2-3M PRN #2 ea 05/31/22 spray (Narcan) omeprazole 40 mg capsule,delayed 40 mg PO BID #60 caps 05/31/22 release sucralfate 1 gram tablet 1 g PO AC & HS #120 tabs 05/31/22 thiamine mononitrate (vit B1) 100 100 mg PO QAM #30 tabs 05/31/22 mg tablet (Vitamin B-1 (mononitrate)) Novolog Flexpen U-100 Insulin 100 See Rx Instructions .Route 06/01/22 unit/mL (3 mL) subcutaneous .COMPLEX #15 mL (insulin aspart U-100) albuterol sulfate 90 mcg/actuation 2 puff inhalation QID PRN 06/01/22 aerosol inhaler shortness of breath or wheezing #3 ea triamcinolone acetonide 0.1 % See Rx Instructions .Route 06/01/22 topical ointment .COMPLEX #80 grams lorazepam 1 mg tablet 1 mg PO DAILY PRN anxiety #10 tabs 06/02/22 sennosides 8.6 mg capsule (senna) 8.6 mg PO BID PRN constipation #60 06/02/22 caps Allergies Allergy/AdvReac Type Severity Reaction Status Date / Time venom-honey bee Allergy Intermediate Verified 06/02/22 10:13 [bee venom (honey bee)] Sulfa (Sulfonamide Allergy Rash & Verified 06/02/22 10:13 Antibiotics) Shortness of Breath hydroxyzine HCl AdvReac Intermediate nausea/vomiting, Verified 06/02/22 10:13 [From Vistaril] palpitations General Stated Complaint: Diabetes LAURIE: 2 Review of Systems All systems reviewed & are unremarkable except as noted in HPI and below Gastrointestinal Gastrointestinal: Denies abdominal pain, Denies diarrhea, Reports nausea and Reports vomiting PFSH All Active Problems (Updated 06/02/22 @ 13:42 by Makayla Santos MD) Discharge planning issues (Acute) DVT prophylaxis (Acute) Hypotension (Acute) Dehydration (Acute) Helicobacter pylori gastritis (Acute) Diabetic keto-acidosis (Acute) Delusional ideas (Acute) Alcoholism (Chronic) Nausea (Acute) Chronic nausea-occasional use of generic Zofran. She knows to use this sparingly-aware of side effects potentially with methadone Substance abuse (Chronic) History of opiate abuse, more remotely benzodiazepine abuse, followed by [facility] in [place], on methadone Hyperlipidemia (Acute) Anxiety (Chronic) 2021-Drug contract with [facility], PMS queried, plan is only occasional exam lorazepam for panic attack, reviewed with [facility] Plan is a limit of 10/month of lorazepam Patient already has Narcan at home 01/31/2022 patient given 1 refill of 10 tabs by phone, she will need an office visit for any further refills Hypertension (Chronic) Abscess of finger (Acute) Distal radius fracture, right (Acute) Internal derangement of right knee (Acute 11/14/20) Type 2 diabetes mellitus with hypoglycemic insulin reaction (Acute) Pneumonia (Acute) Diabetic nephropathy (Chronic 02/01/15) Elevated serum creatinine (Acute 02/01/15) Medical History Alcohol abuse Alcohol dependence in remission Anxiety Cellulitis of left hand (02/01/15) a. secondary to cat bite vs. IVDU b. has 13 cats at home c. denies ongoing IVDU at this time Closed fracture of distal end of right fibula (10/04/16) Constipation COPD (chronic obstructive pulmonary disease) Current smoker (02/01/15) x 29 years Depressive disorder Diabetes mellitus, type II a. chronic noncompliance b. multiple episodes of admission for [facility] c. ? 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 Hyperlipemia Hyperlipidemia statin started Non compliance with medical treatment (02/01/15) Panic disorder PTSD (post-traumatic stress disorder) Schizophrenia Umbilical hernia, incarcerated Ventral hernia without obstruction or gangrene Social History Smoking/Tobacco Use Status: Current every day Tobacco Type: cigarettes Smoking risk assessment performed?: Yes Alcohol Intake: current Alcohol Intake frequency: 0-2 drinks per day Drug use: Current Sobriety Substance use type: does not use Details: drank twisted tea today Current gender identity: female Do you feel safe at home: Yes Do you feel safe in your relationship?: Yes Additional Social history: Ms. Higginbotham has a significant other in the form of a boyfriend. Her only child, a son, reportedly over the last 1 1/2 years. Continued tobacco use. 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 Intermitted EtOH use. Exam Narrative Exam Narrative: Constitutional: Alert and oriented x3. Appears stated age. Obese body habitus. Head: Normocephalic, no trauma. Eyes: Pupils PERRL, Red reflex noted, EOM's intact. Eyelids symmetrical without lesions, discharge, or swelling. ENT: Bilateral TM's WNL, External ear normal to inspection, no mastoid TTP, swelling, or erythema, Nasal turbinates WNL, no nasal discharge. Normal dentition, Posterior pharynx WNL, no exudate. Chest: RRR, Normal S1, S2, distal pulses intact. Resp: Lungs clear to auscultation bilaterally, no wheezes, rales, or rhonchi. Abdomen: Soft, non-distended, Normoactive bowel sounds all 4 quads. Musculoskeletal: Normal gait, 5/5 strength to all four extremities. Skin: No suspicious rashes or lesions. Capillary refill less than 2 sec. Neurologic: Cranial nerves II-XII intact. Alert and oriented x 3. Motor: No deficits noted. Sensory: Intact bilaterally all 4 extremities. Reflexes: DTR's intact bilaterally.. Hematologic/Lymphatic: No ecchymosis, no lymphadenopathy. Course Vital Signs Vital signs: Vital Signs Temperature 36.4 C L 06/02/22 09:58 Pulse 83 06/02/22 09:58 Respiratory Rate 18 06/02/22 09:58 Blood Pressure 74/45 L 06/02/22 09:58 Pulse Oximetry 100 06/02/22 09:58 Temperature 36.4 C L 06/02/22 09:58 Temperature Source Temporal Artery Scan 06/02/22 09:58 Pulse 83 06/02/22 09:58 Respiratory Rate 18 06/02/22 09:58 Blood Pressure 74/45 L 06/02/22 09:58 Blood Pressure Position Sitting 06/02/22 09:58 Pulse Oximetry 100 06/02/22 09:58 Oxygen Delivery Method Room Air 06/02/22 09:58 Oxygen Flow Rate 0 06/02/22 09:58
[2022-06-02 10:38] LABS: Abs Immature Grans 0.02 10^3/uL (0.0-0.06); Absolute Basophil Count 0.03 10^3/uL (0.0-0.2); Absolute Eosinophil Count 0.04 10^3/uL (0.0-0.7); Absolute Lymphocyte Count 1.15 10^3/uL (1.2-3.4); Absolute Monocyte Count 0.33 10^3/uL (0.1-0.8); Absolute Neutrophil Count 6.18 10^3/uL (1.2-6.7); Basophils % 0.4; Eosinophils % 0.5; HCT 43.2 % (36.0-46.0); HGB 13.7 g/dL (11.2-15.7); Immature Grans % 0.3; Lymphocytes % 14.8; MCH 27.3 pg (27.0-33.0); MCHC 31.7 % (32.0-36.0); MCV 86 fL (80-95); MPV 10.6 fL (8.0-11.0); Monocytes % 4.3; Neutrophils % 79.7; Platelet Count 346 10^3/uL (130-400); RBC 5.02 10^6/uL (3.93-5.22); RDW 14.5 % (11.7-14.6); RDW-SD 45.4 fL; WBC 7.75 10^3/uL (4.4-10.8)
[2022-06-02] MEDS: Normal Saline 1,000 ML 1000 ML IV (10:44)
[2022-06-02] MEDS: Ondansetron 4 MG/2 ML VIAL IVP ×2 (10:44→17:41)
[2022-06-02 11:01] LABS: ALT 55 U/L (14-59); AST 38 U/L (15-37); Albumin 3.4 g/dL (3.4-5.0); Alkaline Phosphatase 83 U/L (46-116); Anion Gap 24.2 mmol/L (3-11); BUN 29 mg/dL (7-18); Bilirubin, Total 1.1 mg/dL (0.2-1.0); CO2 16.8 mmol/L (21.0-32.0); CREATININE 1.6 mg/dL (0.55-1.02); Calcium 9.9 mg/dL (8.5-10.1); Chloride 91 mmol/L (98-107); Estimated GFR 38.81 (mL/min/1.73m2); Magnesium 2.3 mg/dL (1.8-2.4); Potassium 4.8 mmol/L (3.5-5.1); Sodium 132 mmol/L (136-145); Total Protein 7.5 g/dL (6.4-8.2); Troponin I < 50 ng/L (<or=60)
[2022-06-02 11:07] LABS: Glucose 622 mg/dL (74-106)
[2022-06-02 12:21] LABS: Bilirubin Negative (Negative); Blood Negative (Negative); Clarity Clear (Clear); Glucose 500 mg/dL (Negative); Ketones 80 mg/dL (Negative); Leukocyte Esterase Negative (Negative); Nitrite Negative (Negative); Urobilinogen 0.2 EU/dL (Up TO 0.2); pH 5.5 (5-8)
[2022-06-02] MEDS: Lactated Ringers 1,000 ML 1000 ML IV ×2 (12:22→17:25)
[2022-06-02] MEDS: Insulin REGULAR-Human 100 UNITS/ML UNIT 8 UNITS IV (12:51)
--- NOTE | 2022-06-02 12:52 | NUR.NOTE ---
Marcie Gonzalez RN in the Chart re: Nursing team supervisor Carol Simon RNcalled for possible admit to ICU Nursing Note:
[2022-06-02 12:55] LABS: Source Nasal/Nares
[2022-06-02 13:12] LABS: BE (Venous) -15 mmol/L (-2-3); HCO3 (Venous) 13 mmol/L (23-28); O2 Sat (Venous) 45 %; TCO2 (Venous) 13 mmol/L (24-29); pCO2 (Venous) 34 mmHg (41-51); pH (Venous) 7.21 (7.31-7.41); pO2 (Venous) 29 mmHg
--- NOTE | 2022-06-02 13:12 | W.PM.HP.N ---
Date of service: 06/02/22 Time of Service: 13:12 Assessment and Plan Assessment and plan (1) Diabetic keto-acidosis: Status: Acute Assessment and plan: Admit to ICU on IVF, insulin gtt, with Q1hr fingersticks, serial chemistries and VBGs. Give long acting insulin now. It does appear that this admission was precipitated by the patient's delusional state and she will need to have mental health participate in her disposition decision. (2) Helicobacter pylori gastritis: Status: Acute Assessment and plan: Treat with protonix 40 mg PO BID, clarithromycin 500 mg PO BID, amoxicillin 1 gram PO BID x 2 weeks. (3) Dehydration: Status: Acute Assessment and plan: Hydrate intravenously. Treat DKA (4) Hypotension: Status: Acute Assessment and plan: Suspect due to dehydration - treat with IVF. (5) Delusional ideas: Status: Acute Assessment and plan: Mental health consulted and will need to participate in disposition decision for this patient who has failed the option of outpatient follow up and ended up readmitted. (6) Schizophrenia: Assessment and plan: As above (7) Alcoholism: Status: Chronic Assessment and plan: will give thiamine IV now. Monitor on CIWA. Supplement with MVI, thiamine, folate. (8) Substance abuse: Status: Chronic Assessment and plan: Continue methadone. (9) Non compliance with medical treatment: Assessment and plan: Suspect that this is due to underlying psychiatric condition. As above. (10) DVT prophylaxis: Status: Acute Assessment and plan: SCDS. Avoid chemical DVT ppx given recent Gi bleeding. (11) Discharge planning issues: Status: Acute Assessment and plan: Full code. Admit to ICU. Total Critical Care Time 45 minutes History of Present Illness History of Present Illness Chief Complaint: nausea, vomiting, not taking insulin Narrative: Mr Higginbotham is a 51 year old female with PMHx of IDDM2, admitted for DKA and GI bleeding 05/26/22-05/31/22 here at [facility], as well as h/o polysubstance abuse on methadone, and schizophrenia, initiated on abilify on her last admission with us for psychotic features (paranoid delusions), who presented to [facility] ED today with nausea, vomiting since last night, and high blood sugars. While the patient reported to the ED that she had lost her insulin and her other medications, her had stated that, in fact, she did have access to insulin, but refused to take it believing that it was poison. Nursing in the ICU confirms that the patient was suspicious about lantus that was about to be administered to her. On arrival to the ED, her BP was 74/45, but it has reportedly improved to SBP in low 100s since IVF bolus. Her VBG showed a pH of 7.21; her chemistry revealed a BG of 622, carbon dioxide of 16.8, and AG of 24.2. The patient was initiated on an insulin drip, and a hospitalist admission was requested. Review of Systems Narrative: The patient reports feeling thirsty. She is no longer nauseated. Denies abdominal pain. Denies any additional feelings about her medications to me, stating that she is ok with IV insulin. All systems reviewed & are unremarkable except as noted in HPI and below PFSH All Active Problems (Updated 06/02/22 @ 13:42 by Makayla Santos MD) Discharge planning issues (Acute) DVT prophylaxis (Acute) Hypotension (Acute) Dehydration (Acute) Helicobacter pylori gastritis (Acute) Diabetic keto-acidosis (Acute) Delusional ideas (Acute) Alcoholism (Chronic) Nausea (Acute) Chronic nausea-occasional use of generic Zofran. She knows to use this sparingly-aware of side effects potentially with methadone Substance abuse (Chronic) History of opiate abuse, more remotely benzodiazepine abuse, followed by [facility] in [place], on methadone Hyperlipidemia (Acute) Anxiety (Chronic) 2021-Drug contract with [facility], [facility] queried, plan is only occasional exam lorazepam for panic attack, reviewed with [facility] clinic Plan is a limit of 10/month of lorazepam Patient already has Narcan at home 01/31/2022 patient given 1 refill of 10 tabs by phone, she will need an office visit for any further refills Hypertension (Chronic) Abscess of finger (Acute) Distal radius fracture, right (Acute) Internal derangement of right knee (Acute 11/14/20) Type 2 diabetes mellitus with hypoglycemic insulin reaction (Acute) Pneumonia (Acute) Diabetic nephropathy (Chronic 02/01/15) Elevated serum creatinine (Acute 02/01/15) Medical History Alcohol abuse Alcohol dependence in remission Anxiety Cellulitis of left hand (02/01/15) a. secondary to cat bite vs. IVDU b. has 13 cats at home c. denies ongoing IVDU at this time Closed fracture of distal end of right fibula (10/04/16) Constipation COPD (chronic obstructive pulmonary disease) Current smoker (02/01/15) x 29 years Depressive disorder Diabetes mellitus, type II a. chronic noncompliance b. multiple episodes of admission for [facility] c. ? 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 Hyperlipemia Hyperlipidemia statin started Non compliance with medical treatment (02/01/15) Panic disorder PTSD (post-traumatic stress disorder) Schizophrenia Umbilical hernia, incarcerated Ventral hernia without obstruction or gangrene Social History Smoking/Tobacco Use Status: Current every day Tobacco Type: cigarettes Smoking risk assessment performed?: Yes Alcohol Intake: current Alcohol Intake frequency: 0-2 drinks per day Drug use: Current Sobriety Substance use type: does not use Details: drank twisted tea today Current gender identity: female Do you feel safe at home: Yes Do you feel safe in your relationship?: Yes Additional Social history: Ms. Higginbotham has a significant other in the form of a boyfriend. Her only child, a son, reportedly over the last 1 1/2 years. Continued tobacco use. 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 Intermitted EtOH use. Meds Allergies and Home Medications Allergies Allergy/AdvReac Type Severity Reaction Status Date / Time venom-honey bee Allergy Intermediate Verified 06/02/22 10:13 [bee venom (honey bee)] Sulfa (Sulfonamide Allergy Rash & Verified 06/02/22 10:13 Antibiotics) Shortness of Breath hydroxyzine HCl AdvReac Intermediate nausea/vomiting, Verified 06/02/22 10:13 [From Vistaril] palpitations Home Medications Medication Instructions Recorded Confirmed Type epinephrine 0.3 mg/0.3 mL 0.3 mg IM ONCE #1 pen 04/01/13 06/02/22 History injection, auto-injector (EpiPen 2-Tejinder) blood-glucose meter (FreeStyle #1 ea 12/09/19 06/02/22 Rx Lite Meter kit) clotrimazole 1 % topical cream 1 applic topical BID #28 grams 09/20/20 06/02/22 Rx mupirocin 2 % topical ointment 1 applic topical TID PRN skin 09/20/20 06/02/22 Rx infection #22 grams methadone 10 mg/5 mL oral solution 22 mg PO DAILY 11/15/20 06/02/22 History albuterol sulfate 2.5 mg/0.5 mL 5 mg inhalation Q6H PRN shortness 12/31/20 06/02/22 Rx solution for nebulization of breath or wheezing #30 ea cholecalciferol (vitamin D3) 25 25 mcg PO DAILY #90 caps 08/29/21 06/02/22 Rx mcg (1,000 unit) capsule docusate sodium 100 mg capsule 100 mg PO BID #180 caps 10/25/21 06/02/22 Rx (Colace) lisinopril 20 mg tablet 20 mg PO DAILY #90 tabs 10/25/21 06/02/22 Rx miconazole nitrate 2 % topical 1 applic topical BID PRN vaginitis 10/25/21 06/02/22 Rx cream #28 grams nicotine 14 mg/24 hr daily 1 patch transdermal DAILY #28 ea 10/25/21 06/02/22 Rx transdermal patch lancets 28 gauge (FreeStyle #400 ea 03/03/22 06/02/22 Rx Lancets) terbinafine HCl 1 % topical cream 1 applic topical BID #30 grams 03/03/22 06/02/22 Rx (Lamisil AT) blood sugar diagnostic (Blood #400 strips 03/15/22 06/02/22 Rx Glucose Test strips) pen needle, diabetic 31 gauge x #200 ea 03/15/22 06/02/22 Rx 1/3 atorvastatin 20 mg tablet 20 mg PO DAILY #90 tabs 03/28/22 06/02/22 Rx ondansetron 4 mg disintegrating 2 mg PO DAILY 05/28/22 06/02/22 History tablet ondansetron HCl 4 mg tablet 2 mg PO DAILY PRN nausea and 05/28/22 06/02/22 History vomiting aripiprazole 2 mg tablet (Abilify) 2 mg PO DAILY #30 tabs 05/31/22 06/02/22 Rx folic acid 1 mg tablet 1 mg PO QAM #30 tabs 05/31/22 06/02/22 Rx gabapentin 100 mg capsule 100 mg PO TID #90 caps 05/31/22 06/02/22 Rx insulin glargine 100 unit/mL (3 35 unit (0.35 mL) subcut QAM #30 mL 05/31/22 06/02/22 Rx mL) subcutaneous pen multivitamin (Multiple Vitamins 1 tab PO QAM #30 tabs 05/31/22 06/02/22 Rx tablet) naloxone 4 mg/actuation nasal 4 mg intranasal Q2-3M PRN #2 ea 05/31/22 06/02/22 Rx spray (Narcan) omeprazole 40 mg capsule,delayed 40 mg PO BID #60 caps 05/31/22 06/02/22 Rx release sucralfate 1 gram tablet 1 g PO AC & HS #120 tabs 05/31/22 06/02/22 Rx thiamine mononitrate (vit B1) 100 100 mg PO QAM #30 tabs 05/31/22 06/02/22 Rx mg tablet (Vitamin B-1 (mononitrate)) Novolog Flexpen U-100 Insulin 100 See Rx Instructions .Route 06/01/22 06/02/22 Rx unit/mL (3 mL) subcutaneous .COMPLEX #15 mL (insulin aspart U-100) albuterol sulfate 90 mcg/actuation 2 puff inhalation QID PRN 06/01/22 06/02/22 Rx aerosol inhaler shortness of breath or wheezing #3 ea triamcinolone acetonide 0.1 % See Rx Instructions .Route 06/01/22 06/02/22 Rx topical ointment .COMPLEX #80 grams lorazepam 1 mg tablet 1 mg PO DAILY PRN anxiety #10 tabs 06/02/22 06/02/22 Rx sennosides 8.6 mg capsule (senna) 8.6 mg PO BID PRN constipation #60 06/02/22 06/02/22 Rx caps Exam Narrative Exam Narrative: General: Pleasant obese female who is A&Ox3, not tachypneic/dyspneic, on RA< speaking in full sentences, appears to be at her baseline mental status. Neurological: A&Ox3, no focal deficits Psychiatric: Suspicious towards her medications (specifically, lantus pen), per nursing; appropriate per my exam Skin: several tattoos; no visible skin lesions HEENT: Atraumatic, normocephalic, EOMI, dry MM, clear oropharynx, no submandibular or cervical lymphadenopathy, no goiter or JVD Cardiovascular: RRR, no m/r/g Lungs: CTAB Gastrointestinal: soft, obese, nontender Genitourinary: deferred Extremities: no edema BLEs, 1+ pedal pulses B Results Imaging Additional studies: CXR ordered, pending Labs Result diagrams: 06/02/22 10:30 06/02/22 10:30 Labs: Laboratory Results - last 24 hr 06/02/22 06/02/22 06/02/22 10:30 10:30 12:05 WBC 7.75 RBC 5.02 Hgb 13.7 Hct 43.2 MCV 86 MCH 27.3 MCHC 31.7 L RDW 14.5 Plt Count 346 D MPV 10.6 Immature Gran % 0.3 Neutrophils % 79.7 Lymphocytes % 14.8 Monocytes % 4.3 Eosinophils % 0.5 Basophils % 0.4 Nucleated RBC % 0.0 Absolute Neutrophils 6.18 Absolute Lymphocytes 1.15 L Absolute Monocytes 0.33 Absolute Eosinophils 0.04 Absolute Basophils 0.03 Sodium 132 L Potassium 4.8 Chloride 91 L Carbon Dioxide 16.8 L Anion Gap 24.2 H BUN 29 H Creatinine 1.6 H Est GFR (CKD-EPI 2020) 38.81 Glucose 622 H* Calcium 9.9 Magnesium 2.3 Total Bilirubin 1.1 H AST 38 H ALT 55 Alkaline Phosphatase 83 Troponin I < 50 Total Protein 7.5 Albumin 3.4 Urine Color Yellow Urine Clarity Clear Urine pH 5.5 Ur Specific [place] 1.020 Urine Protein Negative Urine Ketones 80 H Urine Blood Negative Urine Nitrite Negative Urine Bilirubin Negative Urine Urobilinogen 0.2 Ur Leukocyte Esterase Negative Urine Glucose 500 H COVID-19 Source 06/02/22 12:48 WBC RBC Hgb Hct MCV MCH MCHC RDW Plt Count MPV Immature Gran % Neutrophils % Lymphocytes % Monocytes % Eosinophils % Basophils % Nucleated RBC % Absolute Neutrophils Absolute Lymphocytes Absolute Monocytes Absolute Eosinophils Absolute Basophils Sodium Potassium Chloride Carbon Dioxide Anion Gap BUN Creatinine Est GFR (CKD-EPI 2020) Glucose Calcium Magnesium Total Bilirubin AST ALT Alkaline Phosphatase Troponin I Total Protein Albumin Urine Color Urine Clarity Urine pH Ur Specific [place] Urine Protein Urine Ketones Urine Blood Urine Nitrite Urine Bilirubin Urine Urobilinogen Ur Leukocyte Esterase Urine Glucose COVID-19 Source Nasal/Nares Last Vital Signs Temp 36.4 C L 06/02/22 09:58 Pulse 83 06/02/22 09:58 Resp 18 06/02/22 09:58 BP 74/45 L 06/02/22 09:58 Pulse Ox 100 06/02/22 09:58
[2022-06-02 13:29] LABS: COVID-19 PCR Negative (Negative)
[2022-06-02 13:35] LABS: Troponin I < 50 ng/L (<or=60)
[2022-06-02] MEDS: Insulin Glargine 300 UNITS/3 ML PEN 30 UNITS SC (14:11)
[2022-06-02] MEDS: Gabapentin 100 MG CAP PO ×2 (14:14→20:43)
--- NOTE | 2022-06-02 14:19 | NUR.NOTE ---
Patient arrives in ICU at 14:00.Nursing Note:
[2022-06-02] MEDS: INSULIN REGULAR IN 0.9 % NACL 100 UNIT/100 ML BAG IV (14:20)
[2022-06-02] MEDS: THIAMINE 100 MG in Normal Saline 100 ML 200 MG IVPB (14:28)
[2022-06-02] MEDS: POTASSIUM CHLORIDE/0.9% NACL 1,000 ML 150 MEQ IV (14:29)
[2022-06-02 14:33] LABS: Anion Gap 27.6 mmol/L (3-11); BUN 30 mg/dL (7-18); CO2 14.4 mmol/L (21.0-32.0); CREATININE 1.7 mg/dL (0.55-1.02); Calcium 9.5 mg/dL (8.5-10.1); Chloride 95 mmol/L (98-107); Estimated GFR 36.08 (mL/min/1.73m2); Magnesium 2.2 mg/dL (1.8-2.4); PHOSPHORUS 5.8 mg/dL (2.6-4.7); Sodium 137 mmol/L (136-145)
[2022-06-02 14:38] LABS: Glucose 608 mg/dL (74-106)
[2022-06-02] MEDS: Lactated Ringers 1,000 ML 999 ML IV ×3 (14:50→22:02)
--- NOTE | 2022-06-02 16:36 | PDOC.MHCN ---
Date of service: 06/02/22 Time of Service: 11:23 PHQ-9 Over the last 2 weeks, how often have you been bothered by any of the following problems? 1. Little interest or pleasure in doing things: more than half the days 2. Feeling down, depressed, or hopeless: more than half the days 3. Trouble falling or staying asleep, or sleeping too much: nearly every day 4. Feeling tired or having little energy: nearly every day 5. Poor appetite or overeating: nearly every day 6. Feeling bad about yourself - or that you are a failure or have let yourself and your family down: several days 7. Trouble concentrating on things, such as reading the newspaper or watching television: not at all 8. Moving or speaking so slowly that other people could have noticed? - Or the opposite - being so fidgety or restless that you have been moving around a lot more than usual: several days 9. Thoughts that you would be better off or of hurting yourself in some way: not at all Total score: 15 If you checked off any problems, how difficult have these problems made it for you to do your work, take care of things at home, or get along with other people?: somewhat difficult PHQ-9 Results: Positive Source: Developed by Drs. Jeancarlos Mckeon, Mel Starr, Demetrio Benitez and colleagues, with an educational dana from [employer]. Suicide Severity Rate CSSRS Have you wished you were or wished you could go to sleep and not wake up?: No Have you actually had any thoughts of killing yourself?: No CSSRS3 Have you ever done anything, started to do anything or prepared to do anything to end your life?: No CSSRS4 Was this within the past three months?: No Screening Score Total Score: 0 Screening: Negative Mental Health Emergency Note Release [facility] release signed:: Yes Reason for Visit Client presents to [facility] ED and stated to staff that she had lost her insulin. Per conversation that ED provider had with clients he stated that client had not lost her insulin, however was stating that it was poisoned and was refusing to take it. He also stated to ED provider that client has only been taking a couple of bites of food and stating that it was poisoned. Client was also hospitalized for 10 days last week and was released on Sunday due to keto acidosis and presented with similar presentation. Clients reports that client is also schizophrenic. In the last 2 weeks has the pt presented for ES prior to today?: Yes, presented at [facility] ED (Client presented due to high sugar level and was hosptialized for 10 days. ) Client Information Client is: Adult Outpatient Non Suicidal Self Injury Current: No History: No Safety Risk/Harm to Self or Others Current Ideation to Harm Self or Others: No Risk: Does risk to harm exist?: yes. Access to means: No. Risk: Moderate Risk Duty to warn indicated: No Asssessment/Mental Status Appearance: Disheveled Attitude: Guarded Behavior: Unremarkable Speech: Soft and Slow Affect: Flat and Cogruent with mood Mood: Stressed and Irritable Thought process: Unremarkable Hallucinations: No evidence Delusions: No evidence Attention: Unremarkable Perception: Not impaired Orientation: Fully orientated Memory: Intact Insight: Fair Judgement: Fair Neurovegetative Symptoms Sleep: Decrease Appetitie: Decrease Interests: No change Energy: No change Libido: Not applicable Substance Use: Other (client reports that she is 10 days sober) Do you use nicotine?: Yes Have you used substances in the last 7 days?: No Additional Issues: Assaultive/Threatening Behavior: No Medical Concerns: Yes Client engaged in active self harm w/weapon: No Threatening to run away: No Child reported abuse/neglect: No Voluntarily presenting for services: Yes Domestic violence is a concern: No Extreme Psychosis or extreme behavior is present: No Impression When this advertising copy writer arrives in the room via zoom client appears to be sleeping, however awakes to verbal commands. Client is able to engage, however appears to have an altered mental status due to medical concerns. Client appears to be inconsistent with her answers and states that her told the [facility] staff inaccurate information and that he is putting his nose where it does not belong. When asked about insulin, client reports that she lost her insulin, not that she was being poisoned. Resources Reosurces reviewed and given:: [facility] (Outpatient therapy.) Plan/Disposition Recommended Disposition: Therapy. Plan: Due to current medical concerns regarding clients sugar level client will be admitted due to medical reasons. Per conversation with ED provider Aggie Zuñiga client does not meet criteria for an involuntary hold at this time. Client is agreeable to referral for outpatient therapy. Client will be re-assessed by [facility] once medically cleared. Person reported agreement to plan: Yes Reports/communication Outcome discussed with: ED/Personnel (Verbal passover given to ED provider Aggie Zuñiga)
[2022-06-02] MEDS: Normal Saline Flush 10 ML SYR IVP (17:41)
[2022-06-02] MEDS: Normal Saline Flush 10 ML SYR 20 ML IVP (17:46)
[2022-06-02 17:57] LABS: BE (Venous) -5 mmol/L (-2-3); HCO3 (Venous) 20 mmol/L (23-28); O2 Sat (Venous) 79 %; TCO2 (Venous) 19 mmol/L (24-29); pCO2 (Venous) 35 mmHg (41-51); pH (Venous) 7.38 (7.31-7.41); pO2 (Venous) 41 mmHg
[2022-06-02 17:59] LABS: Lactate 1.4 mmol/L (0.6-1.4)
[2022-06-02 18:09] LABS: Anion Gap 12.9 mmol/L (3-11); BUN 31 mg/dL (7-18); CO2 22.1 mmol/L (21.0-32.0); CREATININE 1.5 mg/dL (0.55-1.02); Calcium 8.2 mg/dL (8.5-10.1); Chloride 102 mmol/L (98-107); Estimated GFR 41.93 (mL/min/1.73m2); Glucose 288 mg/dL (74-106); Magnesium 1.7 mg/dL (1.8-2.4); Sodium 137 mmol/L (136-145)
[2022-06-02 18:19] LABS: Potassium 3.8 mmol/L (3.5-5.1)
[2022-06-02 18:33] LABS: Procalcitonin 0.1 ng/mL
[2022-06-02] MEDS: Lactated Ringers 500 ML IV (19:27)
[2022-06-02 19:32] LABS: *AMPHETAMINES SCREEN URINE Negative (Negative); *BARBITURATES SCREEN URINE Negative (Negative); *BENZODIAZEPINES SCREEN URINE Negative (Negative); Cannabinoids THC Negative (Negative); Cocaine Screen,Urine Negative (Negative); METHADONE URINE SCREEN Positive (Negative); OPIATES URINE SCREEN Negative (Negative)
[2022-06-02] MEDS: DEXTROSE 5%-0.45% SALINE 1,000 ML 150 ML IV (19:36)
[2022-06-02 19:38] LABS: Tricyclic Antidepressants Negative (Negative)
[2022-06-02] MEDS: POTASSIUM CHLORIDE/0.9% NACL 1,000 ML 250 MEQ IV (20:02)
[2022-06-02] MEDS: Amoxicillin 500 MG CAP 1000 MG PO (20:41)
[2022-06-02] MEDS: Sucralfate 1 GM TAB PO (20:41)
[2022-06-02] MEDS: Pantoprazole 40 MG TABCR PO (20:43)
[2022-06-02] MEDS: MAGNESIUM SULFATE 4 GM/100 ML BAG IVPB (21:09)
[2022-06-02 22:13] LABS: BE (Venous) 3 mmol/L (-2-3); HCO3 (Venous) 27 mmol/L (23-28); O2 Sat (Venous) 93 %; TCO2 (Venous) 25 mmol/L (24-29); pCO2 (Venous) 42 mmHg (41-51); pH (Venous) 7.42 (7.31-7.41); pO2 (Venous) 58 mmHg
[2022-06-02 22:24] LABS: Anion Gap 4.1 mmol/L (3-11); BUN 28 mg/dL (7-18); CO2 28.9 mmol/L (21.0-32.0); CREATININE 1.4 mg/dL (0.55-1.02); Calcium 8.2 mg/dL (8.5-10.1); Chloride 107 mmol/L (98-107); Estimated GFR 45.55 (mL/min/1.73m2); Glucose 111 mg/dL (74-106); Potassium 3.6 mmol/L (3.5-5.1); Sodium 140 mmol/L (136-145)
[2022-06-03] VITALS (62 sets, daily range): BP systolic 75–142; BP diastolic 40–96; PULSE 49–124; RESP 11–23; TEMP 36.7–36.8; O2SAT 91–99
[2022-06-03 02:44] LABS: BE (Venous) 2 mmol/L (-2-3); HCO3 (Venous) 28 mmol/L (23-28); O2 Sat (Venous) 87 %; TCO2 (Venous) 26 mmol/L (24-29); pCO2 (Venous) 47 mmHg (41-51); pH (Venous) 7.38 (7.31-7.41); pO2 (Venous) 52 mmHg
[2022-06-03] MEDS: POTASSIUM CHLORIDE/0.9% NACL 1,000 ML 150 MEQ IV (02:48)
[2022-06-03 02:56] LABS: Anion Gap 2.2 mmol/L (3-11); BUN 25 mg/dL (7-18); CO2 29.8 mmol/L (21.0-32.0); CREATININE 1.3 mg/dL (0.55-1.02); Calcium 7.9 mg/dL (8.5-10.1); Chloride 106 mmol/L (98-107); Estimated GFR 49.79 (mL/min/1.73m2); Glucose 93 mg/dL (74-106); Magnesium 2.4 mg/dL (1.8-2.4); Potassium 3.4 mmol/L (3.5-5.1); Sodium 138 mmol/L (136-145)
[2022-06-03] MEDS: Normal Saline Flush 10 ML SYR IVP (04:09)
[2022-06-03 05:48] LABS: BE (Venous) 1 mmol/L (-2-3); HCO3 (Venous) 26 mmol/L (23-28); O2 Sat (Venous) 89 %; TCO2 (Venous) 24 mmol/L (24-29); pCO2 (Venous) 45 mmHg (41-51); pH (Venous) 7.37 (7.31-7.41); pO2 (Venous) 56 mmHg
[2022-06-03 05:52] LABS: Abs Immature Grans 0.01 10^3/uL (0.0-0.06); Absolute Basophil Count 0.01 10^3/uL (0.0-0.2); Absolute Eosinophil Count 0.11 10^3/uL (0.0-0.7); Absolute Lymphocyte Count 2.56 10^3/uL (1.2-3.4); Absolute Monocyte Count 0.71 10^3/uL (0.1-0.8); Absolute Neutrophil Count 4.19 10^3/uL (1.2-6.7); Basophils % 0.1; Eosinophils % 1.4; HCT 34.1 % (36.0-46.0); HGB 11.2 g/dL (11.2-15.7); Immature Grans % 0.1; Lymphocytes % 33.7; MCH 27.3 pg (27.0-33.0); MCHC 32.8 % (32.0-36.0); MCV 83 fL (80-95); MPV 9.5 fL (8.0-11.0); Monocytes % 9.4; Neutrophils % 55.3; Platelet Count 267 10^3/uL (130-400); RDW 14.4 % (11.7-14.6); RDW-SD 43.6 fL; WBC 7.59 10^3/uL (4.4-10.8)
[2022-06-03 06:25] LABS: BUN 23 mg/dL (7-18); CREATININE 1.1 mg/dL (0.55-1.02); Calcium 7.8 mg/dL (8.5-10.1); Chloride 107 mmol/L (98-107); Estimated GFR 60.84 (mL/min/1.73m2); Magnesium 2.3 mg/dL (1.8-2.4); PHOSPHORUS 2.9 mg/dL (2.6-4.7); Potassium 3.5 mmol/L (3.5-5.1); Sodium 139 mmol/L (136-145)
[2022-06-03] MEDS: POTASSIUM CHLORIDE/D5-0.45NACL 1,000 ML 150 MEQ IV (06:30)
[2022-06-03] MEDS: Dextrose 50%-Water 25 GM/50 ML SYR IVP (06:32)
[2022-06-03 06:34] LABS: Glucose 48 mg/dL (74-106)
[2022-06-03] MEDS: Methadone Liquid 10 MG/ML 22 MG PO (08:36)
[2022-06-03] MEDS: Cholecalciferol (Vitamin D3) 1,000 UNIT TAB 1000 UNITS PO (08:37)
[2022-06-03] MEDS: Clarithromycin 500 MG TAB PO ×2 (08:37→20:28)
[2022-06-03] MEDS: Thiamine 100 MG TAB PO (08:37)
[2022-06-03] MEDS: Pantoprazole 40 MG TABCR PO ×2 (08:37→20:28)
[2022-06-03] MEDS: Docusate Sodium 100 MG CAP PO ×2 (08:37→20:28)
[2022-06-03] MEDS: ARIPiprazole 2 MG TAB PO (08:37)
[2022-06-03] MEDS: Amoxicillin 500 MG CAP 1000 MG PO ×2 (08:37→20:28)
[2022-06-03] MEDS: Gabapentin 100 MG CAP PO ×2 (08:37→20:28)
[2022-06-03] MEDS: Multivitamin TAB 1 TAB PO (08:38)
[2022-06-03] MEDS: Normal Saline Flush 10 ML SYR 20 ML IVP ×2 (08:38→20:31)
[2022-06-03] MEDS: Nicotine 14 MG/24 HR PATCH TD (08:38)
[2022-06-03] MEDS: Folic Acid 1 MG TAB PO (08:38)
[2022-06-03] MEDS: Atorvastatin 20 MG TAB PO (08:38)
[2022-06-03] MEDS: Sucralfate 1 GM TAB PO ×4 (08:38→22:37)
[2022-06-03] MEDS: Insulin Glargine 300 UNITS/3 ML PEN 35 UNITS SC (08:39)
--- NOTE | 2022-06-03 09:09 | INITIAL_ITS ---
- If Service Date Differs Date of service: 06/03/22 Time of Service: 09:09 Care Management Initial Assess REASON FOR HOSPITALIZATION:: DKA PAST MEDICAL HISTORY/PAST SURGICAL HISTORY:: All Active Problems (Updated 06/02/22 @ 13:42 by Makayla Santos MD). Discharge planning issues (Acute). DVT prophylaxis (Acute). Hypotension (Acute). Dehydration (Acute). Helicobacter pylori gastritis (Acute). Diabetic keto-acidosis (Acute). Delusional ideas (Acute). Alcoholism (Chronic). Nausea (Acute). Chronic nausea-occasional use of generic Zofran. She knows to use this sparingly-aware of side effects potentially with methadone. Substance abuse (Chronic). History of opiate abuse, more remotely benzodiazepine abuse, followed by [facility] clinic in [place], on methadone. Hyperlipidemia (Acute). Anxiety (Chronic). 2021-Drug contract with [employer], [facility] queried, plan is only occasional exam lorazepam for panic attack, reviewed with [facility] clinic. Plan is a limit of 10/month of lorazepam. Patient already has Narcan at home. 01/31/2022 patient given 1 refill of 10 tabs by phone, she will need an office visit for any further refills. Hypertension (Chronic). Abscess of finger (Acute). Distal radius fracture, right (Acute). Internal derangement of right knee (Acute 11/14/20). Type 2 diabetes mellitus with hypoglycemic insulin reaction (Acute). Pneumonia (Acute). Diabetic nephropathy (Chronic 02/01/15). Elevated serum creatinine (Acute 02/01/15). Medical History . Alcohol abuse. Alcohol dependence in remission. Anxiety. Cellulitis of left hand (02/01/15). a. secondary to cat bite vs. IVDU. b. has 13 cats at home. c. denies ongoing IVDU at this time. Closed fracture of distal end of right fibula (10/04/16). Constipation. COPD (chronic obstructive pulmonary disease). Current smoker (02/01/15). x 29 years. Depressive disorder. Diabetes mellitus, type II. a. chronic noncompliance. b. multiple episodes of admission for [facility]. c. ? diabetic retinopathy. Drug addiction. on Methadone. heroin use in remission x 3 years. Hyperlipemia. Hyperlipidemia. statin started . Non compliance with medical treatment (02/01/15). Panic disorder. PTSD (post-traumatic stress disorder). Schizophrenia. Umbilical hernia, incarcerated. Ventral hernia without obstruction or gangrene PREVIOUS FUNCTIONAL STATUS/SOCIAL/FAMILY SUPPORTS:: Josefina lives in an apartment in [facility] with her Chandan. Nani had a son who and his girlfriend and their daughter, who has special needs, lives with them as well. Nani is disabled and does not work. She is independent at baseline and does not receive any services. CURRENT FUNCTIONAL STATUS:: Nani was sitting up in bed in the ICU when CM met with her. She was sleepy and only able to talk a little, although she did state that she feels much more awake than earlier. Clinically Nani is doing better. Her glucose level was over 600 on admission but has been between 100 and 200 most of the day. Her blood pressures remain soft, but otherwise her vital signs are stable. ADVANCE DIRECTIVES:: none on file Has patient been provided with info about the portal/API?: Yes Did the patient sign up for the portal?: Yes (previously) CODE STATUS:: Full Code INSURANCE COVERAGE / FINANCIAL ISSUES:: Medicaid CURRENT HOME/COMMUNITY SERVICES/EQUIPMENT:: none PRIMARY CARE PHYSICIAN:: Xin Stern POTENTIAL DISCHARGE NEEDS:: Follow up with mental health, PCP and plan of care PATIENT/FAMILY EDUCATION NEEDS:: Review of discharge instructions, limitations, activity, follow up plan, discuss Ask Me Three TRANSPORTATION:: via private vehicle with family PLAN:: Josefina is being treated and closely monitored in the ICU. This is her second admission in a little over a week for DKA, due in part to her mental health issues. She will need a mental health evaluation and possible treatment. Josefina will follow up with her PCP and plan of care and transport with family if discharged directly home. CM will provide support to Josefina and her discharge needs. Readmission - Within the Past 30 Days Yes or No: Y - Date of First Admission Date of 1st Admission: 05/26/22 - Date of this Admission Date of Admission: 06/02/22 This admission was: Through ED
[2022-06-03] MEDS: Insulin Aspart 300 UNITS/3 ML PEN SC ×4 (10:19→22:37)
--- NOTE | 2022-06-03 14:55 | W.PM.PROGNOT ---
Date of Service Date of service: 06/03/22 Time of Service: 14:56 Assessment and Plan Assessment and plan (1) Diabetic keto-acidosis: Status: Acute Assessment and plan: Admit to ICU on IVF, insulin gtt, with Q1hr fingersticks, serial chemistries and VBGs. Given long-acting insulin. Now off insulin gtt and on basal/bolus insulin. Stopped IV fluids. It does appear that this admission was precipitated by the patient's delusional state and she will need to have mental health participate in her disposition decision. (2) Helicobacter pylori gastritis: Status: Acute Assessment and plan: Treat with protonix 40 mg PO BID, clarithromycin 500 mg PO BID, amoxicillin 1 gram PO BID x 2 weeks. (3) Dehydration: Status: Acute Assessment and plan: Now on oral intake only. Creatinine improved to 1.1. (4) Hypotension: Status: Acute Assessment and plan: Improved BP. Encourage adequate oral intake. (5) Delusional ideas: Status: Acute Assessment and plan: Mental health consulted and will need to participate in disposition decision for this patient who has failed the option of outpatient follow up and ended up readmitted. (6) Schizophrenia: Assessment and plan: As above (7) Alcoholism: Status: Chronic Assessment and plan: Cont. supplementing with MVI, thiamine, folate. (8) Substance abuse: Status: Chronic Assessment and plan: Continue methadone. (9) Non compliance with medical treatment: Assessment and plan: Suspect that this is due to underlying psychiatric condition. As above. (10) DVT prophylaxis: Status: Acute Assessment and plan: SCDS. Avoid chemical DVT ppx given recent Gi bleeding. (11) Discharge planning issues: Status: Acute Assessment and plan: Full Code. Change to Med-surg status. Subjective Subjective Patient reports: tolerating liquids well (States she would like solid food) and afebrile; denies diarrhea, nausea, vomiting or shortness of breath Exam Narrative Exam Narrative: General: Asleep. Wakens readily to verbal stimuli. Neurological: A&Ox3, no focal deficits Psychiatric: Affect flat. Accepting medications this AM Skin: several tattoos; no visible skin lesions Cardiovascular: RRR, no murmur Lungs: CTAB Gastrointestinal: soft, obese, nontender Extremities: no edema BLEs, no calf tenderness Objective Last Vital Signs Temp 36.7 C 06/03/22 08:53 Pulse 74 06/03/22 12:27 Resp 16 06/03/22 13:00 BP 85/42 L 06/03/22 12:27 Pulse Ox 94 06/03/22 13:00 Laboratory Results - last 24 hr 06/02/22 06/02/22 06/02/22 17:45 17:45 17:45 WBC RBC Hgb Hct MCV MCH MCHC RDW Plt Count MPV Immature Gran % Neutrophils % Lymphocytes % Monocytes % Eosinophils % Basophils % Nucleated RBC % Absolute Neutrophils Absolute Lymphocytes Absolute Monocytes Absolute Eosinophils Absolute Basophils VBG pH 7.38 VBG pCO2 35 L VBG pO2 41 VBG HCO3 20 L VBG Total CO2 19 L VBG O2 Saturation 79 VBG Base Excess -5 L VBG Lactate 1.4 Sodium 137 Potassium 3.8 D Chloride 102 Carbon Dioxide 22.1 Anion Gap 12.9 H BUN 31 H Creatinine 1.5 H Est GFR (CKD-EPI 2020) 41.93 Glucose 288 H Calcium 8.2 L Phosphorus Magnesium 1.7 L Procalcitonin 0.1 Urine Opiates Screen Urine Methadone Screen Ur Barbiturates Screen Ur Tricyclics Screen Ur Amphetamines Screen U Benzodiazepines Scrn Urine Cocaine Screen Ur THC Screen 06/02/22 06/02/22 06/02/22 18:45 22:03 22:03 WBC RBC Hgb Hct MCV MCH MCHC RDW Plt Count MPV Immature Gran % Neutrophils % Lymphocytes % Monocytes % Eosinophils % Basophils % Nucleated RBC % Absolute Neutrophils Absolute Lymphocytes Absolute Monocytes Absolute Eosinophils Absolute Basophils VBG pH 7.42 H VBG pCO2 42 VBG pO2 58 VBG HCO3 27 VBG Total CO2 25 VBG O2 Saturation 93 VBG Base Excess 3 VBG Lactate Sodium 140 Potassium 3.6 Chloride 107 Carbon Dioxide 28.9 Anion Gap 4.1 BUN 28 H Creatinine 1.4 H Est GFR (CKD-EPI 2020) 45.55 Glucose 111 H Calcium 8.2 L Phosphorus Magnesium 2.0 Procalcitonin Urine Opiates Screen Negative Urine Methadone Screen Positive A Ur Barbiturates Screen Negative Ur Tricyclics Screen Negative Ur Amphetamines Screen Negative U Benzodiazepines Scrn Negative Urine Cocaine Screen Negative Ur THC Screen Negative 06/03/22 06/03/22 06/03/22 02:00 02:00 05:20 WBC RBC Hgb Hct MCV MCH MCHC RDW Plt Count MPV Immature Gran % Neutrophils % Lymphocytes % Monocytes % Eosinophils % Basophils % Nucleated RBC % Absolute Neutrophils Absolute Lymphocytes Absolute Monocytes Absolute Eosinophils Absolute Basophils VBG pH 7.38 7.37 VBG pCO2 47 45 VBG pO2 52 56 VBG HCO3 28 26 VBG Total CO2 26 24 VBG O2 Saturation 87 89 VBG Base Excess 2 1 VBG Lactate Sodium 138 Potassium 3.4 L Chloride 106 Carbon Dioxide 29.8 Anion Gap 2.2 L BUN 25 H Creatinine 1.3 H Est GFR (CKD-EPI 2020) 49.79 Glucose 93 Calcium 7.9 L Phosphorus Magnesium 2.4 Procalcitonin Urine Opiates Screen Urine Methadone Screen Ur Barbiturates Screen Ur Tricyclics Screen Ur Amphetamines Screen U Benzodiazepines Scrn Urine Cocaine Screen Ur THC Screen 06/03/22 06/03/22 05:20 05:20 WBC 7.59 RBC 4.10 Hgb 11.2 D Hct 34.1 L MCV 83 MCH 27.3 MCHC 32.8 RDW 14.4 Plt Count 267 MPV 9.5 Immature Gran % 0.1 Neutrophils % 55.3 Lymphocytes % 33.7 Monocytes % 9.4 Eosinophils % 1.4 Basophils % 0.1 Nucleated RBC % 0.0 Absolute Neutrophils 4.19 Absolute Lymphocytes 2.56 Absolute Monocytes 0.71 Absolute Eosinophils 0.11 Absolute Basophils 0.01 VBG pH VBG pCO2 VBG pO2 VBG HCO3 VBG Total CO2 VBG O2 Saturation VBG Base Excess VBG Lactate Sodium 139 Potassium 3.5 Chloride 107 Carbon Dioxide 27.0 Anion Gap 5.0 BUN 23 H Creatinine 1.1 H Est GFR (CKD-EPI 2020) 60.84 Glucose 48 L* Calcium 7.8 L Phosphorus 2.9 Magnesium 2.3 Procalcitonin Urine Opiates Screen Urine Methadone Screen Ur Barbiturates Screen Ur Tricyclics Screen Ur Amphetamines Screen U Benzodiazepines Scrn Urine Cocaine Screen Ur THC Screen
[2022-06-04] VITALS (57 sets, daily range): BP systolic 99–155; BP diastolic 61–97; PULSE 46–75; RESP 10–24; TEMP 36.6–36.7; O2SAT 88–100
[2022-06-04] MEDS: Normal Saline Flush 10 ML SYR IVP ×2 (05:39→05:44)
[2022-06-04 06:32] LABS: ALT 31 U/L (14-59); AST 24 U/L (15-37); Alkaline Phosphatase 57 U/L (46-116); Anion Gap 7.3 mmol/L (3-11); BUN 19 mg/dL (7-18); Bilirubin, Total 0.5 mg/dL (0.2-1.0); CO2 26.7 mmol/L (21.0-32.0); Calcium 8.1 mg/dL (8.5-10.1); Chloride 106 mmol/L (98-107); Estimated GFR 68.21 (mL/min/1.73m2); Glucose 207 mg/dL (74-106); Potassium 4.1 mmol/L (3.5-5.1); Sodium 140 mmol/L (136-145); Total Protein 5.1 g/dL (6.4-8.2)
[2022-06-04] MEDS: Methadone Liquid 10 MG/ML 22 MG PO (08:33)
[2022-06-04] MEDS: ARIPiprazole 2 MG TAB PO (08:35)
[2022-06-04] MEDS: Gabapentin 100 MG CAP PO ×3 (08:35→20:53)
[2022-06-04] MEDS: Thiamine 100 MG TAB PO (08:35)
[2022-06-04] MEDS: Clarithromycin 500 MG TAB PO ×2 (08:35→20:54)
[2022-06-04] MEDS: Pantoprazole 40 MG TABCR PO ×2 (08:35→20:55)
[2022-06-04] MEDS: Docusate Sodium 100 MG CAP PO ×3 (08:35→20:54)
[2022-06-04] MEDS: Sucralfate 1 GM TAB PO ×4 (08:36→20:54)
[2022-06-04] MEDS: Atorvastatin 20 MG TAB PO (08:36)
[2022-06-04] MEDS: Amoxicillin 500 MG CAP 1000 MG PO ×2 (08:36→20:54)
[2022-06-04] MEDS: Folic Acid 1 MG TAB PO (08:36)
[2022-06-04] MEDS: Multivitamin TAB 1 TAB PO (08:36)
[2022-06-04] MEDS: Insulin Glargine 300 UNITS/3 ML PEN 35 UNITS SC (08:36)
[2022-06-04] MEDS: Cholecalciferol (Vitamin D3) 1,000 UNIT TAB 1000 UNITS PO (08:36)
[2022-06-04] MEDS: Nicotine 14 MG/24 HR PATCH TD (08:37)
[2022-06-04] MEDS: Insulin Aspart 300 UNITS/3 ML PEN SC ×2 (08:39→12:37)
[2022-06-04] MEDS: Normal Saline Flush 10 ML SYR 20 ML IVP (08:40)
--- NOTE | 2022-06-04 11:49 | PHA.REVIEW ---
Pharmacy Admission Review - Admission Clinical Review (Last Reviewed 06/02/22 @ 10:13 by Aggie Zuñiga NP) Discharge planning issues (Acute) DVT prophylaxis (Acute) Hypotension (Acute) Dehydration (Acute) Helicobacter pylori gastritis (Acute) Diabetic keto-acidosis (Acute) Delusional ideas (Acute) venom-honey bee [bee venom (honey bee)] Allergy (Intermediate, Verified 06/02/22 10:13) Sulfa (Sulfonamide Antibiotics) Allergy (Verified 06/02/22 10:13) Rash & Shortness of Breath hydroxyzine HCl [From Vistaril] Adverse Reaction (Intermediate, Verified 06/02/22 10:13) nausea/vomiting, palpitations Resuscitation Status Full Code Height 5 ft 1 in Weight 94.2 kg - Renal Dosing Renal Dosing: BUN 19 mg/dL (7-18) H 06/04/22 05:40 Creatinine 1.0 mg/dL (0.55-1.02) 06/04/22 05:40 Medications needing adjustments: Reviewed (crcl = 69, no adjustments needed) - Anticoagulation Anticoagulation: Hgb 11.2 g/dL (11.2-15.7) D 06/03/22 05:20 Hct 34.1 % (36.0-46.0) L 06/03/22 05:20 Plt Count 267 10^3/uL (130-400) 06/03/22 05:20 Creatinine 1.0 mg/dL (0.55-1.02) 06/04/22 05:40 DVT Prophylaxis: N/A (SCD's. no chemical VTE ppx d/t recent GI bleed) Therapeutic Anticoagulation: N/A - Opiate Usage Evaluate Pain Scale/Pains Meds: N/A (no opioids. pt receives methadone 22 mg daily) - Relevant Labs Sodium 140 mmol/L (136-145) 06/04/22 05:40 Potassium 4.1 mmol/L (3.5-5.1) 06/04/22 05:40 Chloride 106 mmol/L (98-107) 06/04/22 05:40 Phosphorus 2.9 mg/dL (2.6-4.7) 06/03/22 05:20 Magnesium 2.3 mg/dL (1.8-2.4) 06/03/22 05:20 Electrolytes, C-Reactive P, ESR: Reviewed - DM Control DM Control: Glucose 207 mg/dL (74-106) H 06/04/22 05:40 Finger Stick Blood Glucose 207 Finger Stick Blood Glucose 207 Insulin Dosing: Reviewed (pt has been noncompliant with insulin at home, presented in DKA which has now resolved. Some adjustments made to insulin (had a low yesterday)) - Heart Failure/MS Heart Failure/MS: Troponin I < 50 ng/L (<or=60) 06/02/22 13:10 EF%, VAIBHAV's, B-Blockers, Diuretics: N/A - BP Control BP Control: Blood Pressure 155/97 Blood Pressure 112/63 Blood Pressure 142/71 Blood Pressure 99/61 If elevated: Reviewed - Qtc Review If Elevated: N/A (no EKG to review this admission, QTc from 05/25 = 483) - IV to PO Switch IV Medications: Reviewed (insulin drip dc'd, stopped yesterday. no other IV's) - Home Meds Home Med List reviewed: Reviewed - Current meds Current Medication Order Review: Reviewed Antibiotic Activity - Pharmacy Antibiotic Review Pharmacy Antibiotic Activity: Reviewed, no change (amox 1 g BID + clarithromycin 500 mg BID (+ pantoprazole 40 mg BID) --> indication: H. pylori. Treat x 2 weeks)
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
[2022-06-04] MEDS: LORazepam 1 MG TAB PO (20:54)
[2022-06-05] VITALS (9 sets, daily range): BP systolic 143–151; BP diastolic 72–86; PULSE 56–82; TEMP 36.7–36.9; O2SAT 97–99
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
[2022-06-05] MEDS: Amoxicillin 500 MG CAP 1000 MG PO (08:27)
[2022-06-05] MEDS: Gabapentin 100 MG CAP PO (08:27)
[2022-06-05] MEDS: Sucralfate 1 GM TAB PO ×2 (08:27→11:20)
[2022-06-05] MEDS: Lisinopril 20 MG TAB PO (08:29)
[2022-06-05] MEDS: Atorvastatin 20 MG TAB PO (08:29)
[2022-06-05] MEDS: Clarithromycin 500 MG TAB PO (08:30)
[2022-06-05] MEDS: Pantoprazole 40 MG TABCR PO (08:30)
[2022-06-05] MEDS: Cholecalciferol (Vitamin D3) 1,000 UNIT TAB 1000 UNITS PO (08:31)
[2022-06-05] MEDS: Folic Acid 1 MG TAB PO (08:31)
[2022-06-05] MEDS: Multivitamin TAB 1 TAB PO (08:31)
[2022-06-05] MEDS: ARIPiprazole 2 MG TAB PO (08:32)
[2022-06-05] MEDS: Docusate Sodium 100 MG CAP PO (08:32)
[2022-06-05] MEDS: Nicotine 14 MG/24 HR PATCH TD (08:33)
[2022-06-05] MEDS: Methadone Liquid 10 MG/ML 22 MG PO (08:37)
[2022-06-05] MEDS: Insulin Glargine 300 UNITS/3 ML PEN 35 UNITS SC (08:40)
[2022-06-05] MEDS: Insulin Aspart 300 UNITS/3 ML PEN SC ×2 (08:42→11:20)
--- NOTE | 2022-06-05 12:45 | W.INDIABCONS ---
Date of service: 06/05/22 Time of Service: 12:46 Diabetes Inpatient Consult Reason for Visit: dm DESCRIPTION/ASSESSMENT: Josefina was re- admitted with DKA with anemia and hx of alcoholism, opiate dependenance, on methadone,? PMH: COPD, HTN, HLD, Schizoprenia, obesity.? Admitted last week for same 05/26/22-05/31/22. Josefina reports that she did not take her lantus as prescribed at her discharge on 05/31/22 for fear it was poison.? Does not want to take any medications for her schizoprenia.? Most recent A1C (03/03/22): 7.5% indicates well controlled diabetes in view of co morbidities.? Following diabetic diet, receiving sliding scale insulin and lantus HS.? Gastric Emptying study done 05/31/22- no evidence of delay Josefina refuses to return home to her . To be discharged to hotel with services. Reports that she will need a glucometer for check her blood sugars. INTERVENTION: Encouraged Josefina to follow up in out patient setting.? Provided written material and contact information.? Discharge plan will include script for glucometer and instructions for use. PLAN: Josefina to follow up in outpatient setting for weight and diabetes self management education. Time Spent in Nutritional Counseling and Treatment: 10
--- NOTE | 2022-06-05 14:03 | NUR.NOTE ---
Nursing Note: Patient ate lunch and consumed a total of 41 grams of carbohydrates. Amy Diaz was in to see patient regarding nutritional counseling and patient requested outpatient appointment. No appointment was made prior to discharge. Arrangements were made by [employer] Patricia that patient would be transported by [facility] bus to [facility]. Patient was provided with short-term medications of Gabapentin - Ariprazole- Lisinopril - Nicotine Inhaler - Albuterol Inhaler. Patient was given Glargine Insulin pen x 2 with needles and Novolog pen with needles. Prescription labels were attached. Spoke with Dr Singh regarding patient statement that she is 15-days sober. Reminded that patient requires prescription for new glucometer. Prescription was provided for Lorazepam and secured in envelope with discharge information. Discussion with patient regarding family support as she is planning to divorce her . Room was checked and patient stated she had all her belongings secured in two belongings bags.
--- NOTE | 2022-06-05 14:06 | CMDISCH_ITS ---
- If Service Date Differs Date of service: 06/05/22 Time of Service: 14:06 LACE Index Scoring Tool - Questions: Length of Stay (in days): 3 Acuity (Admit via E.D.?): Yes Comorbidities: Diabetes w/o Complication, Chronic Pulmonary Disease E.D. Visits: 4 - Answers: Total Score: 13 Risk of Readmission: High Risk Care Management Discharge Reason for Hospitalization: DKA Discharge Plan: Josefina will be discharged back into the community today. She has chosen not to return to her home where her [place] [facility] partner lives. At her request, KERVIN arranged for RCT transportation directly to [employer] where she hopes to receive a voucher for housing. Her prescriptions have been faxed to her pharmacy, including one for a new glucometer, test strips and and lancets.She has also been provided with a 3 day supply of her medications. Josefina will follow up with her PCP and plan of care as prescribed. Patient/Family Education Needs: Review of discharge instructions, limitations, activity, follow up plan, discuss Ask Me Three
== END 2022-06-05 13:30 | disposition home or self-care (01) | DRG 638 ==
LOC: ER 13:15 → ICU 14:04 → MS 06-19 18:46
PROVIDERS: Family Medicine; Admitting Provider Internal Medicine; Emergency Provider Registered Nurse Emergency; PCP Nurse Practitioner Family; Visit Provider Internal Medicine
DX: E11.10 Type 2 diabetes mellitus with ketoacidosis without coma (principal); F11.20 Opioid dependence, uncomplicated; F20.0 Paranoid schizophrenia; K29.70 Gastritis, unspecified, without bleeding; T38.3X6A Underdosing of insulin and oral hypoglycemic [antidiabetic] drugs, initial encounter; E78.5 Hyperlipidemia, unspecified; F41.9 Anxiety disorder, unspecified; I10 Essential (primary) hypertension; K29.60 Other gastritis without bleeding; B96.81 Helicobacter pylori [H. pylori] as the cause of diseases classified elsewhere; E86.0 Dehydration; I95.9 Hypotension, unspecified; R11.0 Nausea; F41.0 Panic disorder [episodic paroxysmal anxiety]; E11.21 Type 2 diabetes mellitus with diabetic nephropathy; F10.21 Alcohol dependence, in remission; J44.9 Chronic obstructive pulmonary disease, unspecified; F17.210 Nicotine dependence, cigarettes, uncomplicated; F32.A Depression, unspecified; K59.00 Constipation, unspecified; F43.10 Post-traumatic stress disorder, unspecified; Z79.4 Long term (current) use of insulin
CPT/HCPCS: 36415; 36416; 36569; 36592; 80048; 80053; 80307; 82805; 82962; 84145; 87040; 87635; 96361; 96374; 96375; 99285; 81003; 83605; 83735; 84100; 84484; 85025; 99232; 99233; 99239; 99291; J2405; J3475

== ENCOUNTER 2022-06-07 18:47 | Inpatient (IN) | payer MEDICAID, SELFPAY ==
[2022-06-07] VITALS (46 sets, daily range): BP systolic 85–121; BP diastolic 41–95; PULSE 79–108; RESP 9–89; TEMP 36.8–37.5; O2SAT 95–100
--- NOTE | 2022-06-07 19:00 | RT.EKG_ITS ---
APPROVED REPORT Exam: Resting ECG Reason for Exam: hyperglycemia, nausea Patient Location: E HR:90 bpm ECG Measurements Heart Rate 90 AXIS NJ 135 P 50 QRSd 87 QRS 33 QT 371 T 42 QTc 454 Conclusion Sinus rhythm...normal P axis, V-rate 60- 99
--- NOTE | 2022-06-07 19:00 | DI.RAD_ITS ---
Exam(s) XR PORTABLE CHEST AP EXAM: XR PORTABLE CHEST AP CLINICAL HISTORY: Hyperglycemia, mental status changes TECHNIQUE: 2D digital imaging was performed of the chest. One image was obtained. An AP view was ob tained. COMPARISON: CR XR PORTABLE CHEST AP from 05/25/2022 FINDINGS: There is poor inspiration. MEDIASTINUM: Normal. HEART: The heart does appear to be enlarged. This may in part be due to the portable AP technique an d/or hypoventilatory changes. PULMONARY VASCULATURE: Normal. LUNGS: There is diffuse nonspecific prominence of the interstitial markings bilaterally. No focal co nsolidation is present. PLEURAL SPACE: No pleural effusion or pneumothorax. BONE:Within normal limits for the patient's age. OTHER FINDINGS:Normal. IMPRESSION: 1. Exam compromised by poor inspiratory effort. 2. Nonspecific prominence of the interstitial markings bilaterally. This is nonspecific and may be d ue to low lung volumes or secondary to atelectasis, interstitial edema or pneumonia. Please correlat e clinically. DATA REPOSITORY: RADIATION DOSE DELIVERED:
--- NOTE | 2022-06-07 19:15 | W.ED.GENAD ---
Discharge Plan Disposition Patient Disposition: [facility] INPATIENT Condition: Serious Discharge Details Clinical Impression: DKA (diabetic ketoacidosis) Primary Care Provider: Xin Stern ED Provider: Vincenzo Burns Home Meds and New Rx's Prescriptions: No Action mupirocin 2 % ointment 1 applic TP TID PRN (Reason: skin infection) Qty: 22 1RF clotrimazole 1 % cream 1 applic TP BID Qty: 28 2RF Rx Instructions: apply to feet twice a day until rash is gone albuterol sulfate 2.5 mg/0.5 mL solution for nebulization 5 mg IH Q6H PRN (Reason: shortness of breath or wheezing) Qty: 30 2RF miconazole nitrate 2 % cream 1 applic TP BID PRN (Reason: vaginitis) Qty: 28 2RF Rx Instructions: local application twice a day as needed (itching,burning) docusate sodium [Colace] 100 mg capsule 100 mg PO BID Qty: 180 3RF lisinopril 20 mg tablet 20 mg PO DAILY Qty: 90 3RF nicotine 14 mg/24 hr patch 24 hour 1 patch transdermal DAILY Qty: 28 0RF (DME) lancets [FreeStyle Lancets] 28 gauge misc 1 ea Miscellaneous QID Qty: 400 4RF Rx Instructions: Check blood sugar 4times a day terbinafine HCl [Lamisil AT] 1 % cream 1 applic topical BID Qty: 30 1RF Rx Instructions: to affected area on feet epinephrine [EpiPen 2-Tejinder] 0.3 MG/0.3 ML auto-injector 0.3 mg IM ONCE Qty: 1 (DME) blood-glucose meter [FreeStyle Lite Meter] Kit See Dose Instructions .ROUTE .MEDSUPPLY Qty: 1 0RF Dose Instruction: As directed Rx Instructions: As directed/ check QiD/ cholecalciferol (vitamin D3) 25 mcg (1,000 unit) capsule 25 mcg PO DAILY Qty: 90 3RF (DME) pen needle, diabetic 31 gauge x 1/3 needle 1 ea Miscellaneous QID Qty: 200 6RF Rx Instructions: 31G X 3/16 needle Dx: E11.8 (DME) Blood Glucose Test Strip 1 ea Miscellaneous qid and Qty: 400 4RF Rx Instructions: Free Style Lite strips. PT USES INSULIN. TESTS QID. DIAGNOSIS CODE E11.649 atorvastatin 20 mg tablet 20 mg PO DAILY Qty: 90 0RF insulin aspart U-100 [Novolog Flexpen U-100 Insulin] 100 unit/mL (3 mL) insulin pen See Rx Instructions .ROUTE .COMPLEX Qty: 15 3RF Dose Instruction: INJECT 5 UNITS UNDER THE SKIN THREE TIMES DAILY WITH MEALS Rx Instructions: INJECT 5 UNITS UNDER THE SKIN THREE TIMES DAILY WITH MEALS albuterol sulfate 90 mcg/actuation HFA aerosol inhaler 2 puff IH QID PRN (Reason: shortness of breath or wheezing) Qty: 3 4RF triamcinolone acetonide 0.1 % ointment See Rx Instructions .ROUTE .COMPLEX Qty: 80 0RF Dose Instruction: APPLY TOPICALLY TO THE AFFECTED AREA TWICE DAILY Rx Instructions: APPLY TOPICALLY TO THE AFFECTED AREA TWICE DAILY senna 8.6 mg capsule 8.6 mg PO BID PRN (Reason: constipation) Qty: 60 2RF lorazepam 1 mg tablet 1 mg PO DAILY PRN (Reason: anxiety) Qty: 10 0RF Rx Instructions: Do not fill before 03/31/2022 amoxicillin 500 mg Capsule 1,000 mg PO BID 12 Days Qty: 48 0RF clarithromycin 500 mg tablet 500 mg PO BID 12 Days Qty: 24 0RF lorazepam 1 mg tablet lorazepam 1 mg tablet 1 mg PO DAILY PRNQty: 10 0RF omeprazole 40 mg capsule,delayed release(DR/EC) 40 mg PO BID 12 Days Qty: 24 0RF (DME) blood-glucose meter [OneTouch Ultra2 Meter] Misc See Rx Instructions .Route Qty: 1 0RF Rx Instructions: TID glucose monitoring (DME) OneTouch Ultra Test Strip See Rx Instructions .Route Qty: 100 0RF Rx Instructions: TID glucose monitoring. (DME) BD Specialty Use Castine 30 gauge x 1/2 needle See Rx Instructions .Route Qty: 100 0RF Rx Instructions: TID glucose injections (DME) lancets [Lancets,Ultra Thin] Misc See Rx Instructions .Route Qty: 100 0RF Rx Instructions: TID glucose monitoring methadone 10 mg/5 mL Solution 22 mg PO DAILY Rx Instructions: prescribed @ [facility] per pt ondansetron HCl 4 mg tablet 2 mg PO DAILY PRN (Reason: nausea and vomiting) folic acid 1 mg Tablet 1 mg PO QAM Qty: 30 0RF gabapentin 100 mg Capsule 100 mg PO TID Qty: 90 0RF multivitamin [Multiple Vitamins] Tablet 1 tab PO QAM Qty: 30 0RF sucralfate 1 gram Tablet 1 g PO AC & HS Qty: 120 0RF aripiprazole [Abilify] 2 mg Tablet 2 mg PO DAILY Qty: 30 0RF thiamine mononitrate (vit B1) [Vitamin B-1 (mononitrate)] 100 mg Tablet 100 mg PO QAM Qty: 30 0RF naloxone [Narcan] 4 mg/actuation spray,non-aerosol 4 mg intranasal Q2-3M PRNQty: 2 0RF Rx Instructions: spray 1 dose into ONE nostril; alternate nostrils w each dose until help arrives omeprazole 40 mg capsule,delayed release(DR/EC) 40 mg PO BID Qty: 60 3RF insulin glargine 100 unit/mL (3 mL) insulin pen 35 unit SC QAM Qty: 30 11RF Medical Decision Making This is a 51-year-old female who was admitted to the hospital from June 02 to June 05 with DKA. EMS was called tonight by her partner for vomiting and hyperglycemia. She was also noted to have decreased level of responsiveness. On arrival, patient does respond to loud voice and patient states to me that she has not been taking her medications, she has been nauseated with high blood glucose and vomiting today. She denies to me recent febrile illness and has not had a headache, fallen or injured herself. Patient's comorbidities include schizophrenia and some ongoing intermittent delusions. She has a history of polysubstance abuse. She is high risk for recurrent DKA due to poor home self-care. Patient initially has slightly low blood pressure in the 90 systolic and slightly elevated heart rate in the low 100s. IV access established, screening labs obtained and fluid bolus initiated with antiemetic. Initial glucose measures to high to quantitate. Laboratories note a White count 8, hematocrit 39, platelets 303. Patient has an anion gap acidosis with a gap of 34 and a bicarb of 11.9. Her electrolytes reveal a sodium of 134, potassium 4.9. BUN 33 and creatinine 2.0 which are elevated over baseline. Initial troponin negative, lipase normal and LFTs unremarkable. Consistent with recurrent diabetic ketoacidosis. Unclear why Ms. Higginbotham continues to fail to manage her diabetes at home. Her live-in female partner confirms that she has been noncompliant with her medications. Nonetheless, she will require admission and insulin drip.Discussed with Dr Whitmore. HPI General Mode of arrival: EMS. Date/Time Provider Initiated Documentation: 06/07/22 19:21. Limitations to Documentation: no limitations. Information obtained by: patient and EMS. History of Present Illness 51 year old F presents to the emergency department with the chief complaint of Hyperglycemia, vomiting, mental status changes, described as moderate and similar to prior episodes, Patient started experiencing this unknown and it has been intermittent. No relieving factors improve symptom(s), No exacerbating factors reported . Patient notes loss of appetite, malaise and nausea/vomiting; denies chest pain, headaches and syncope. Patient did receive the following treatments prior to arrival, none Related Data Home Medications Medication Instructions Recorded Confirmed epinephrine 0.3 mg/0.3 mL 0.3 mg IM ONCE #1 pen 04/01/13 06/02/22 injection, auto-injector (EpiPen 2-Tejinder) blood-glucose meter (FreeStyle #1 ea 12/09/19 06/02/22 Lite Meter kit) clotrimazole 1 % topical cream 1 applic topical BID #28 grams 09/20/20 06/02/22 mupirocin 2 % topical ointment 1 applic topical TID PRN skin 09/20/20 06/02/22 infection #22 grams methadone 10 mg/5 mL oral solution 22 mg PO DAILY 11/15/20 06/02/22 albuterol sulfate 2.5 mg/0.5 mL 5 mg inhalation Q6H PRN shortness 12/31/20 06/02/22 solution for nebulization of breath or wheezing #30 ea cholecalciferol (vitamin D3) 25 25 mcg PO DAILY #90 caps 08/29/21 06/02/22 mcg (1,000 unit) capsule docusate sodium 100 mg capsule 100 mg PO BID #180 caps 10/25/21 06/02/22 (Colace) lisinopril 20 mg tablet 20 mg PO DAILY #90 tabs 10/25/21 06/02/22 miconazole nitrate 2 % topical 1 applic topical BID PRN vaginitis 10/25/21 06/02/22 cream #28 grams nicotine 14 mg/24 hr daily 1 patch transdermal DAILY #28 ea 02/01/22 09/09/22 transdermal patch lancets 28 gauge (FreeStyle #400 ea 03/03/22 06/02/22 Lancets) terbinafine HCl 1 % topical cream 1 applic topical BID #30 grams 03/03/22 06/02/22 (Lamisil AT) blood sugar diagnostic (Blood #400 strips 03/15/22 06/02/22 Glucose Test strips) pen needle, diabetic 31 gauge x #200 ea 03/15/22 06/02/22 1/3 atorvastatin 20 mg tablet 20 mg PO DAILY #90 tabs 03/28/22 06/02/22 ondansetron HCl 4 mg tablet 2 mg PO DAILY PRN nausea and 05/28/22 06/02/22 vomiting aripiprazole 2 mg tablet (Abilify) 2 mg PO DAILY #30 tabs 05/31/22 06/02/22 folic acid 1 mg tablet 1 mg PO QAM #30 tabs 05/31/22 06/02/22 gabapentin 100 mg capsule 100 mg PO TID #90 caps 05/31/22 06/02/22 insulin glargine 100 unit/mL (3 35 unit (0.35 mL) subcut QAM #30 mL 05/31/22 06/02/22 mL) subcutaneous pen multivitamin (Multiple Vitamins 1 tab PO QAM #30 tabs 05/31/22 06/02/22 tablet) naloxone 4 mg/actuation nasal 4 mg intranasal Q2-3M PRN #2 ea 05/31/22 06/02/22 spray (Narcan) omeprazole 40 mg capsule,delayed 40 mg PO BID #60 caps 05/31/22 06/02/22 release sucralfate 1 gram tablet 1 g PO AC & HS #120 tabs 05/31/22 06/02/22 thiamine mononitrate (vit B1) 100 100 mg PO QAM #30 tabs 05/31/22 06/02/22 mg tablet (Vitamin B-1 (mononitrate)) Novolog Flexpen U-100 Insulin 100 See Rx Instructions .Route 06/01/22 06/02/22 unit/mL (3 mL) subcutaneous .COMPLEX #15 mL (insulin aspart U-100) albuterol sulfate 90 mcg/actuation 2 puff inhalation QID PRN 06/01/22 06/02/22 aerosol inhaler shortness of breath or wheezing #3 ea triamcinolone acetonide 0.1 % See Rx Instructions .Route 06/01/22 06/02/22 topical ointment .COMPLEX #80 grams lorazepam 1 mg tablet 1 mg PO DAILY PRN anxiety #10 tabs 06/02/22 06/02/22 sennosides 8.6 mg capsule (senna) 8.6 mg PO BID PRN constipation #60 06/02/22 06/02/22 caps amoxicillin 500 mg capsule 1,000 mg PO BID 12 days #48 caps 06/05/22 blood sugar diagnostic (OneTouch #100 ea 06/05/22 Ultra Test strips) blood-glucose meter (OneTouch #1 ea 06/05/22 Ultra2 Meter) clarithromycin 500 mg tablet 500 mg PO BID 12 days #24 tabs 06/05/22 lancets (Lancets,Ultra Thin) #100 ea 06/05/22 lorazepam 1 mg tablet 1 mg PO DAILY PRN #10 tabs 06/05/22 lorazepam 1 mg tablet mg 06/05/22 needle (disp) 30 gauge 30 gauge x #100 ea 06/05/22 1/2 (BD Specialty Use Castine) omeprazole 40 mg capsule,delayed 40 mg PO BID 12 days #24 caps 06/05/22 release Previous Rx's Medication Instructions Recorded blood-glucose meter (FreeStyle #1 ea 12/09/19 Lite Meter kit) clotrimazole 1 % topical cream 1 applic topical BID #28 grams 09/20/20 mupirocin 2 % topical ointment 1 applic topical TID PRN skin 09/20/20 infection #22 grams albuterol sulfate 2.5 mg/0.5 mL 5 mg inhalation Q6H PRN shortness 12/31/20 solution for nebulization of breath or wheezing #30 ea cholecalciferol (vitamin D3) 25 25 mcg PO DAILY #90 caps 08/29/21 mcg (1,000 unit) capsule docusate sodium 100 mg capsule 100 mg PO BID #180 caps 10/25/21 (Colace) lisinopril 20 mg tablet 20 mg PO DAILY #90 tabs 10/25/21 miconazole nitrate 2 % topical 1 applic topical BID PRN vaginitis 10/25/21 cream #28 grams nicotine 14 mg/24 hr daily 1 patch transdermal DAILY #28 ea 10/25/21 transdermal patch lancets 28 gauge (FreeStyle #400 ea 03/03/22 Lancets) terbinafine HCl 1 % topical cream 1 applic topical BID #30 grams 03/03/22 (Lamisil AT) blood sugar diagnostic (Blood #400 strips 03/15/22 Glucose Test strips) pen needle, diabetic 31 gauge x #200 ea 03/15/22 1/3 atorvastatin 20 mg tablet 20 mg PO DAILY #90 tabs 03/28/22 aripiprazole 2 mg tablet (Abilify) 2 mg PO DAILY #30 tabs 05/31/22 folic acid 1 mg tablet 1 mg PO QAM #30 tabs 05/31/22 gabapentin 100 mg capsule 100 mg PO TID #90 caps 05/31/22 insulin glargine 100 unit/mL (3 35 unit (0.35 mL) subcut QAM #30 mL 05/31/22 mL) subcutaneous pen multivitamin (Multiple Vitamins 1 tab PO QAM #30 tabs 05/31/22 tablet) naloxone 4 mg/actuation nasal 4 mg intranasal Q2-3M PRN #2 ea 05/31/22 spray (Narcan) omeprazole 40 mg capsule,delayed 40 mg PO BID #60 caps 05/31/22 release sucralfate 1 gram tablet 1 g PO AC & HS #120 tabs 05/31/22 thiamine mononitrate (vit B1) 100 100 mg PO QAM #30 tabs 05/31/22 mg tablet (Vitamin B-1 (mononitrate)) Novolog Flexpen U-100 Insulin 100 See Rx Instructions .Route 06/01/22 unit/mL (3 mL) subcutaneous .COMPLEX #15 mL (insulin aspart U-100) albuterol sulfate 90 mcg/actuation 2 puff inhalation QID PRN 06/01/22 aerosol inhaler shortness of breath or wheezing #3 ea triamcinolone acetonide 0.1 % See Rx Instructions .Route 06/01/22 topical ointment .COMPLEX #80 grams lorazepam 1 mg tablet 1 mg PO DAILY PRN anxiety #10 tabs 06/02/22 sennosides 8.6 mg capsule (senna) 8.6 mg PO BID PRN constipation #60 06/02/22 caps amoxicillin 500 mg capsule 1,000 mg PO BID 12 days #48 caps 06/05/22 blood sugar diagnostic (OneTouch #100 ea 06/05/22 Ultra Test strips) blood-glucose meter (OneTouch #1 ea 06/05/22 Ultra2 Meter) clarithromycin 500 mg tablet 500 mg PO BID 12 days #24 tabs 06/05/22 lancets (Lancets,Ultra Thin) #100 ea 06/05/22 lorazepam 1 mg tablet 1 mg PO DAILY PRN #10 tabs 06/05/22 needle (disp) 30 gauge 30 gauge x #100 ea 06/05/22 1/2 (BD Specialty Use Castine) omeprazole 40 mg capsule,delayed 40 mg PO BID 12 days #24 caps 06/05/22 release Allergies Allergy/AdvReac Type Severity Reaction Status Date / Time venom-honey bee Allergy Intermediate Verified 06/02/22 10:13 [bee venom (honey bee)] Sulfa (Sulfonamide Allergy Rash & Verified 06/02/22 10:13 Antibiotics) Shortness of Breath hydroxyzine HCl AdvReac Intermediate nausea/vomiting, Verified 06/02/22 10:13 [From Vistaril] palpitations General LAURIE: 2 Review of Systems Narrative: States she has not been taking her medications. Denies respiratory symptoms or chest pain. Was vomiting at home. 8 systems reviewed and otherwise negative PFSH All Active Problems (Updated 06/07/22 @ 20:09 by Vincenzo Burns MD) DKA (diabetic ketoacidosis) (Acute) Helicobacter pylori gastritis (Acute) Alcoholism (Chronic) Nausea (Acute) Chronic nausea-occasional use of generic Zofran. She knows to use this sparingly-aware of side effects potentially with methadone Substance abuse (Chronic) History of opiate abuse, more remotely benzodiazepine abuse, followed by [facility] in [place], on methadone Hyperlipidemia (Acute) Anxiety (Chronic) 2021-Drug contract with [employer] [facility] queried, plan is only occasional exam lorazepam for panic attack, reviewed with [facility] Plan is a limit of 10/month of lorazepam Patient already has Narcan at home 01/31/2022 patient given 1 refill of 10 tabs by phone, she will need an office visit for any further refills Hypertension (Chronic) Abscess of finger (Acute) Distal radius fracture, right (Acute) Internal derangement of right knee (Acute 11/14/20) Type 2 diabetes mellitus with hypoglycemic insulin reaction (Acute) Pneumonia (Acute) Diabetic nephropathy (Chronic 02/01/15) Elevated serum creatinine (Acute 02/01/15) Medical History Alcohol abuse Alcohol dependence in remission Anxiety Cellulitis of left hand (02/01/15) a. secondary to cat bite vs. IVDU b. has 13 cats at home c. denies ongoing IVDU at this time Closed fracture of distal end of right fibula (10/04/16) Constipation COPD (chronic obstructive pulmonary disease) Current smoker (02/01/15) x 29 years Depressive disorder Diabetes mellitus, type II a. chronic noncompliance b. multiple episodes of admission for [facility] c. ? 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 Hyperlipemia Hyperlipidemia statin started Non compliance with medical treatment (02/01/15) Panic disorder PTSD (post-traumatic stress disorder) Schizophrenia Umbilical hernia, incarcerated Ventral hernia without obstruction or gangrene Social History Smoking/Tobacco Use Status: Current every day Tobacco Type: cigarettes Smoking risk assessment performed?: Yes Alcohol Intake: current Alcohol Intake frequency: 0-2 drinks per day Drug use: Current Sobriety Substance use type: does not use Details: drank twisted tea today Current gender identity: female Do you feel safe at home: Yes Do you feel safe in your relationship?: Yes Additional Social history: Ms. Higginbotham has a significant other in the form of a boyfriend. Her only child, a son, reportedly over the last 1 1/2 years. Continued tobacco use. 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 Intermitted EtOH use. Exam Narrative Exam Narrative: GEN: Responds to loud voice, interactive HEAD: Normocephalic, atraumatic ENT: Mucous membranes dry, oropharynx edentulous, External ear exam unremarkable EYES: PERRL, EOMI NECK: Full ROM, no REZA, no menigismus CHEST/RESP: Nontender, clear to auscultation bilateral, no wheeze/rhonchi/rales CARDIOVASCULAR: Regular and borderline tachycardia, no murmur, rub bebo. 2+ Rad pulse bilateral ABDOMEN: Soft, nontender, no mass. +Bowel sounds EXT: Full ROM, no edema, no rash Neuro: Grossly normal neurologic exam, answers questions appropriately. Psych: Unable to assess at this time
[2022-06-07] MEDS: Ondansetron O.D.T. 4 MG TABEF PO (19:40)
[2022-06-07] MEDS: Normal Saline 1,000 ML 1000 ML IV ×4 (19:40→22:32)
[2022-06-07] MEDS: Ondansetron 4 MG/2 ML VIAL IVP (19:45)
[2022-06-07 19:47] LABS: Abs Immature Grans 0.03 10^3/uL (0.0-0.06); Absolute Basophil Count 0.03 10^3/uL (0.0-0.2); Absolute Lymphocyte Count 0.37 10^3/uL (1.2-3.4); Absolute Neutrophil Count 8.02 10^3/uL (1.2-6.7); Basophils % 0.3; HCT 39.6 % (36.0-46.0); HGB 12.4 g/dL (11.2-15.7); Immature Grans % 0.3; Lymphocytes % 4.3; MCH 27.4 pg (27.0-33.0); MCHC 31.3 % (32.0-36.0); MCV 87 fL (80-95); MPV 10.4 fL (8.0-11.0); Monocytes % 2.3; Neutrophils % 92.8; Platelet Count 303 10^3/uL (130-400); RBC 4.53 10^6/uL (3.93-5.22); WBC 8.65 10^3/uL (4.4-10.8)
[2022-06-07 19:53] LABS: ALT 49 U/L (14-59); AST 34 U/L (15-37); Albumin 3.3 g/dL (3.4-5.0); Alkaline Phosphatase 89 U/L (46-116); Anion Gap 34.1 mmol/L (3-11); BUN 33 mg/dL (7-18); Bilirubin, Total 0.8 mg/dL (0.2-1.0); CO2 11.9 mmol/L (21.0-32.0); Chloride 88 mmol/L (98-107); Estimated GFR 29.69 (mL/min/1.73m2); Magnesium 2.3 mg/dL (1.8-2.4); Potassium 4.9 mmol/L (3.5-5.1); Sodium 134 mmol/L (136-145); Total Protein 7.3 g/dL (6.4-8.2); Troponin I < 50 ng/L (<or=60)
[2022-06-07 19:58] LABS: Lipase 24 U/L (73-393)
[2022-06-07 20:08] LABS: ETHANOL BLOOD < 3.0 mg/dL (<10)
[2022-06-07 20:10] LABS: Glucose 763 mg/dL (74-106)
[2022-06-07 20:42] LABS: Source Nasal/Nares
--- NOTE | 2022-06-07 20:57 | NUR.NOTE ---
$122.00 in valuables envelope given to nursing supervisor data processing to put into safe.Nursing Note:
--- NOTE | 2022-06-07 21:05 | DI.VRAD_ITS ---
PROCEDURE INFORMATION: Exam: XR Chest Exam date and time: 06/07/2022 8:17 PM Age: 51 years old Clinical indication: Other: Hyperglycemia, mental status changes TECHNIQUE: Imaging protocol: Radiologic exam of the chest. Views: 1 view. COMPARISON: CR XR PORTABLE CHEST AP 05/25/2022 9:53 AM FINDINGS: Lungs: Lungs are symmetrically hypoinflated with bronchovascular crowding and bibasilar atelectasis. There is diffuse nonspecific coarsening of the interstitial markings. No focal consolidation. Pleural spaces: No visible pleural effusion. No pneumothorax. Heart/Mediastinum: Cardiomediastinal contours appears similar to prior, enlarged however may be accentuated by portable technique or hypoventilatory changes. Bones/joints: Mild thoracic spondylosis. No acute osseous finding. IMPRESSION: 1. Hypoinflation with bronchovascular crowding and bibasilar atelectasis. 2. Diffuse nonspecific coarsening of the interstitial markings may represent atelectasis secondary to decreased lung volumes but are nonspecific. Dictated and Authenticated by: Kadeem Petty MD. Ordering:MARTINEZ Loya MD
[2022-06-07 21:14] LABS: COVID-19 PCR Negative (Negative)
[2022-06-07] MEDS: Insulin REGULAR-Human 100 UNITS/ML UNIT 10 UNITS IV (21:16)
[2022-06-07] MEDS: INSULIN REGULAR IN 0.9 % NACL 100 UNIT/100 ML BAG 8 UNIT IV (21:16)
[2022-06-07] MEDS: Insulin Glargine 300 UNITS/3 ML PEN 40 UNITS SC (21:33)
[2022-06-07] MEDS: Normal Saline 1,000 ML 200 ML IV (21:35)
[2022-06-07] MEDS: Normal Saline Flush 10 ML SYR (21:35)
[2022-06-07 21:40] LABS: HCO3 (Venous) 11 mmol/L (23-28); O2 Sat (Venous) 87 %; TCO2 (Venous) 10 mmol/L (24-29); pCO2 (Venous) 28 mmHg (41-51); pO2 (Venous) 62 mmHg
[2022-06-07 21:42] LABS: pH (Venous) 7.19 (7.31-7.41)
[2022-06-07] MEDS: Enoxaparin 40 MG/0.4 ML SYR SC (22:08)
[2022-06-07 22:16] LABS: Glucose 798 mg/dL (74-106)
[2022-06-07 22:19] LABS: Troponin I < 50 ng/L (<or=60)
[2022-06-07] MEDS: Normal Saline Flush 10 ML SYR IVP (22:50)
[2022-06-07 23:04] LABS: HCO3 (Venous) 10 mmol/L (23-28); O2 Sat (Venous) 88 %; TCO2 (Venous) 9 mmol/L (24-29); pCO2 (Venous) 26 mmHg (41-51); pO2 (Venous) 64 mmHg
[2022-06-07 23:09] LABS: pH (Venous) 7.17 (7.31-7.41)
[2022-06-07 23:23] LABS: Anion Gap 30.7 mmol/L (3-11); BUN 34 mg/dL (7-18); CO2 11.3 mmol/L (21.0-32.0); CREATININE 2.2 mg/dL (0.55-1.02); Calcium 8.3 mg/dL (8.5-10.1); Chloride 97 mmol/L (98-107); Estimated GFR 26.48 (mL/min/1.73m2); Glucose 655 mg/dL (74-106); Sodium 139 mmol/L (136-145)
[2022-06-07 23:28] LABS: Potassium 3.5 mmol/L (3.5-5.1)
--- NOTE | 2022-06-07 23:37 | PDOC.MHPN2 ---
Date of service: 06/04/22 Time of Service: 23:37 PHQ-9 Over the last 2 weeks, how often have you been bothered by any of the following problems? 1. Little interest or pleasure in doing things: more than half the days 2. Feeling down, depressed, or hopeless: more than half the days 3. Trouble falling or staying asleep, or sleeping too much: nearly every day 4. Feeling tired or having little energy: nearly every day 5. Poor appetite or overeating: nearly every day 6. Feeling bad about yourself - or that you are a failure or have let yourself and your family down: several days 7. Trouble concentrating on things, such as reading the newspaper or watching television: not at all 8. Moving or speaking so slowly that other people could have noticed? - Or the opposite - being so fidgety or restless that you have been moving around a lot more than usual: several days 9. Thoughts that you would be better off or of hurting yourself in some way: not at all Total score: 15 If you checked off any problems, how difficult have these problems made it for you to do your work, take care of things at home, or get along with other people?: somewhat difficult PHQ-9 Results: Positive Source: Developed by Drs. Jeancarlos Mckeon, Mel Starr, Demetrio Benitez and colleagues, with an educational dana from [employer]. Suicide Severity Rate CSSRS Have you wished you were or wished you could go to sleep and not wake up?: No Have you actually had any thoughts of killing yourself?: No CSSRS3 Have you ever done anything, started to do anything or prepared to do anything to end your life?: No CSSRS4 Was this within the past three months?: No Screening Score Total Score: 0 Screening: Negative Mental Health Emergency Note Release [facility] release signed:: Yes Reason for Visit Imported from [facility] assessment done on 06.02.2022 Client presents to [facility] ED and stated to staff that she had lost her insulin. Per conversation that ED provider had with clients he stated that client had not lost her insulin, however was stating that it was poisoned and was refusing to take it. He also stated to ED provider that client has only been taking a couple of bites of food and stating that it was poisoned. Client was also hospitalized for 10 days last week and was released on Sunday due to keto acidosis and presented with similar presentation. Clients reports that client is also schizophrenic. In the last 2 weeks has the pt presented for ES prior to today?: Yes, presented at (Admitted last week for similar presesntation and stayed several days due to DKA. ) [facility] ED Client Information Client is: New Well Housed: Yes Non Suicidal Self Injury Current: No History: No Safety Risk/Harm to Self or Others Current Ideation to Harm Self or Others: No Risk: Does risk to harm exist?: No Risk: N/A Duty to warn indicated: No Asssessment/Mental Status Appearance: Well groomed Attitude: Guarded and Hostile Behavior: Agitated Speech: Normal Affect: Flat Mood: Irritable Thought process: Unremarkable Hallucinations: No Delusions: No Attention: Unremarkable Perception: Not impaired Orientation: Fully orientated Memory: Intact Insight: Fair Judgement: Fair Neurovegetative Symptoms Sleep: No change Appetitie: No change Interests: No change Energy: No change Libido: Not applicable Substance Use: ETOH dependence Drug Issues: Other (Client goes to [facility]) Do you use nicotine?: No Have you used substances in the last 7 days?: yes, Client would not engage in assessment Additional Issues: Assaultive/Threatening Behavior: No Medical Concerns: No Client engaged in active self harm w/weapon: No Threatening to run away: No Child reported abuse/neglect: No Voluntarily presenting for services: No Domestic violence is a concern: No Extreme Psychosis or extreme behavior is present: Yes Impression [facility] requested that [facility] assess the client as she has now presented twice in less than a week for DKA along with symptoms congruent with psychosis. Client is agitated and answers questions often with questions of her own. She denied all reports of her having delusions that [facility] wants to God and that she was raped by a demonic animal as well as, that God speaks to her, stating I was out of my mind! Why would people say that stuff. She reported that she lost her diabetic machine and is hopeful that the hospital will give her a new one that is why her sugars were out of control not that she thought her insulin was poisoned. She noted that she is under a great deal of stress as she and her significant other who she references as her are having trust and relationship issues. She reported she has been looking for a new place to live as a result. She is very clear that she wants nothing to do with [facility]. When doing intake paperwork the client agreed to YOLA's for her PCP and her but when it came time to sign she refused keeping the YOLA for her . At this time, her thoughts are clear and organized with not evidence of delusions or hallucinations. This clinician could write an EE based on previous hospital notes to hold her but in discussing with the hospitalist on her case she katelynn would not meet criteria for the second certification. Resources Reosurces reviewed and given:: [facility] Plan/Disposition Recommended Disposition: [facility] Services (Offered services however, she declined and demanded that this clinician leave. ) [facility] Services: Therapy and Psychiatric Evaluation. Plan: Client would benefit from additional services like therapy, case management and psychiatry however, she declined to engage and demanded that this clinician leave her room. The assessment was incomplete. Person reported agreement to plan: No Reports/communication Outcome discussed with: ED/Personnel
[2022-06-08] VITALS (71 sets, daily range): BP systolic 77–131; BP diastolic 43–72; PULSE 57–96; RESP 9–27; TEMP 36.5–37.1; O2SAT 87–100
--- NOTE | 2022-06-08 | DI.US_ITS ---
Exam(s) US RENAL EXAM: US RENAL CLINICAL HISTORY: OMID. TECHNIQUE: Phillip scale, color and spectral Doppler were used. COMPARISON: No exams were available for comparison FINDINGS: Renal size in cm: Right: 8.5. Left: 8.5. Echogenicity: Normal. Hydronephrosis: No. Cyst or mass: No. Nephrolithiasis: No. Other findings: None. Bladder:Normal. Ureteral jets: Right: Visualized and unremarkable. Left: Visualized and unremarkable. Prevoid vol:311 cc Postvoid vol:45 cc Renal color flow: Symmetric and within normal limits. IMPRESSION: Unremarkable examination. DATA REPOSITORY:
--- NOTE | 2022-06-08 00:02 | HPE_ITS ---
Date of service: 06/08/22 Time of Service: 00:02 Assessment and Plan Assessment and plan (1) DKA (diabetic ketoacidosis): Status: Acute Assessment and plan: 3rd episode and admission for DKA this month. Insulin drip. Monitor anion gap, pH, K along with blood glucose. Glargine insulin 30units administered upon admission to the ICU. Should continue long-acting; dosing to be determined by daytime hospital based on her subsequent blood glucose and response to insulin drip. (2) Helicobacter pylori gastritis: Status: Acute Assessment and plan: Treatment initiated at previous admission after findings on EGD. Cont. (3) Substance abuse: Status: Chronic Assessment and plan: Cont methadone. (4) OMID (acute kidney injury): Status: Resolved Assessment and plan: Given 2L NS in ED. Another 1L bolus initiated upon arrival in the ICU; soft blood pressures with MAPs in the 50's. Monitor. (5) Schizophrenia: Status: Suspected Assessment and plan: Currently not showing any behavioral issues, voicing delusional thoughts. She does endorse not taking her medications. Abilify 2mg daily. Qualifiers: Schizophrenia type: schizophreniform disorder Qualified Code(s): F20.81 - Schizophreniform disorder (6) Depressive disorder: Assessment and plan: As above; on abilify. She will need further mental health evaluation. (7) Alcohol dependence in remission: Assessment and plan: She had planned to not return home after d/c on 06/05/22 but she actually did. She wanted to stay away from her partner who she stated still drank alcohol. (8) Acute upper GI bleeding: Status: Resolved Assessment and plan: No evidence of active bleeding. Hgb 12.4 but this is likely an elevated number that will decrease when fully hydrated. (9) Discharge planning issues: Status: Acute Assessment and plan: She has failed managing her diabetes, now on 3 occassions this month. Noncompliant with medications. She would benefit from inpatient mental health intervention if that is found to be available. 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 She was just hospitalized at [facility] from 06/02/22 through 06/05/22 for DKA. Prior to that, admitted to [facility] on 05/25/22, discharged on 05/31/22 for DKA. On both of the previous admissions she presented in a del usional state. She currently was noted by her partner to have an elevated blood glucose with emesis as well as a decreased level of responsiveness. She did endorse to the ED physician that she had not been taking her medications. Her initial glucose was 763. Normal WBC and platelets. Hgb 12.4. Anion gap of 34. Bicarb 11.9. Na 134. K 4.9. Creatinine 2.0 (elevated above her baseline). Troponin neg. Lipase and LFTs normal. Will be admitted for insulin drip and further psychiatric evaluation. Review of Systems Unobtainable due to mental status (lethargic. Does ask for water. ) PFSH All Active Problems (Updated 06/08/22 @ 00:22 by Anuj Whitmore MD) Discharge planning issues (Acute) DKA (diabetic ketoacidosis) (Acute) Helicobacter pylori gastritis (Acute) Alcoholism (Chronic) Nausea (Acute) Chronic nausea-occasional use of generic Zofran. She knows to use this sparingly-aware of side effects potentially with methadone Substance abuse (Chronic) History of opiate abuse, more remotely benzodiazepine abuse, followed by [facility] in [place], on methadone Hyperlipidemia (Acute) Anxiety (Chronic) 2021-Drug contract with [facility], PMS queried, plan is only occasional exam lorazepam for panic attack, reviewed with [facility] Plan is a limit of 10/month of lorazepam Patient already has Narcan at home 01/31/2022 patient given 1 refill of 10 tabs by phone, she will need an office visit for any further refills Hypertension (Chronic) Abscess of finger (Acute) Distal radius fracture, right (Acute) Internal derangement of right knee (Acute 11/14/20) Type 2 diabetes mellitus with hypoglycemic insulin reaction (Acute) Pneumonia (Acute) Diabetic nephropathy (Chronic 02/01/15) Elevated serum creatinine (Acute 02/01/15) Medical History Alcohol abuse Alcohol dependence in remission Anxiety Cellulitis of left hand (02/01/15) a. secondary to cat bite vs. IVDU b. has 13 cats at home c. denies ongoing IVDU at this time Closed fracture of distal end of right fibula (10/04/16) Constipation COPD (chronic obstructive pulmonary disease) Current smoker (02/01/15) x 29 years Depressive disorder Diabetes mellitus, type II a. chronic noncompliance b. multiple episodes of admission for [facility] c. ? 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 Hyperlipemia Hyperlipidemia statin started Non compliance with medical treatment (02/01/15) Panic disorder PTSD (post-traumatic stress disorder) Schizophrenia Umbilical hernia, incarcerated Ventral hernia without obstruction or gangrene Social History Smoking/Tobacco Use Status: Current every day Tobacco Type: cigarettes Smoking risk assessment performed?: Yes Alcohol Intake: current Alcohol Intake frequency: 0-2 drinks per day Drug use: Current Sobriety Substance use type: does not use Details: drank twisted tea today Current gender identity: female Do you feel safe at home: Yes Do you feel safe in your relationship?: Yes Additional Social history: Ms. Higginbotham has a significant other in the form of a boyfriend. Her only child, a son, reportedly over the last 1 1/2 years. Continued tobacco use. 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 Intermitted EtOH use. Meds Allergies and Home Medications Allergies Allergy/AdvReac Type Severity Reaction Status Date / Time venom-honey bee Allergy Intermediate Verified 06/02/22 10:13 [bee venom (honey bee)] Sulfa (Sulfonamide Allergy Rash & Verified 06/02/22 10:13 Antibiotics) Shortness of Breath hydroxyzine HCl AdvReac Intermediate nausea/vomiting, Verified 06/02/22 10:13 [From Vistaril] palpitations Home Medications Medication Instructions Recorded Confirmed Type epinephrine 0.3 mg/0.3 mL 0.3 mg IM ONCE #1 pen 04/01/13 06/02/22 History injection, auto-injector (EpiPen 2-Tejinder) blood-glucose meter (FreeStyle #1 ea 12/09/19 06/02/22 Rx Lite Meter kit) clotrimazole 1 % topical cream 1 applic topical BID #28 grams 09/20/20 06/02/22 Rx mupirocin 2 % topical ointment 1 applic topical TID PRN skin 09/20/20 06/02/22 Rx infection #22 grams methadone 10 mg/5 mL oral solution 22 mg PO DAILY 11/15/20 06/02/22 History albuterol sulfate 2.5 mg/0.5 mL 5 mg inhalation Q6H PRN shortness 12/31/20 06/02/22 Rx solution for nebulization of breath or wheezing #30 ea cholecalciferol (vitamin D3) 25 25 mcg PO DAILY #90 caps 08/29/21 06/02/22 Rx mcg (1,000 unit) capsule docusate sodium 100 mg capsule 100 mg PO BID #180 caps 10/25/21 06/02/22 Rx (Colace) lisinopril 20 mg tablet 20 mg PO DAILY #90 tabs 10/25/21 06/02/22 Rx miconazole nitrate 2 % topical 1 applic topical BID PRN vaginitis 10/25/21 06/02/22 Rx cream #28 grams nicotine 14 mg/24 hr daily 1 patch transdermal DAILY #28 ea 10/25/21 06/02/22 Rx transdermal patch lancets 28 gauge (FreeStyle #400 ea 03/03/22 06/02/22 Rx Lancets) terbinafine HCl 1 % topical cream 1 applic topical BID #30 grams 03/03/22 06/02/22 Rx (Lamisil AT) blood sugar diagnostic (Blood #400 strips 03/15/22 06/02/22 Rx Glucose Test strips) pen needle, diabetic 31 gauge x #200 ea 03/15/22 06/02/22 Rx 1/3 atorvastatin 20 mg tablet 20 mg PO DAILY #90 tabs 03/28/22 06/02/22 Rx ondansetron HCl 4 mg tablet 2 mg PO DAILY PRN nausea and 05/28/22 06/02/22 History vomiting aripiprazole 2 mg tablet (Abilify) 2 mg PO DAILY #30 tabs 05/31/22 06/02/22 Rx folic acid 1 mg tablet 1 mg PO QAM #30 tabs 05/31/22 06/02/22 Rx gabapentin 100 mg capsule 100 mg PO TID #90 caps 05/31/22 06/02/22 Rx insulin glargine 100 unit/mL (3 35 unit (0.35 mL) subcut QAM #30 mL 05/31/22 06/02/22 Rx mL) subcutaneous pen multivitamin (Multiple Vitamins 1 tab PO QAM #30 tabs 05/31/22 06/02/22 Rx tablet) naloxone 4 mg/actuation nasal 4 mg intranasal Q2-3M PRN #2 ea 05/31/22 06/02/22 Rx spray (Narcan) omeprazole 40 mg capsule,delayed 40 mg PO BID #60 caps 05/31/22 06/02/22 Rx release sucralfate 1 gram tablet 1 g PO AC & HS #120 tabs 05/31/22 06/02/22 Rx thiamine mononitrate (vit B1) 100 100 mg PO QAM #30 tabs 05/31/22 06/02/22 Rx mg tablet (Vitamin B-1 (mononitrate)) Novolog Flexpen U-100 Insulin 100 See Rx Instructions .Route 06/01/22 06/02/22 Rx unit/mL (3 mL) subcutaneous .COMPLEX #15 mL (insulin aspart U-100) albuterol sulfate 90 mcg/actuation 2 puff inhalation QID PRN 06/01/22 06/02/22 Rx aerosol inhaler shortness of breath or wheezing #3 ea triamcinolone acetonide 0.1 % See Rx Instructions .Route 06/01/22 06/02/22 Rx topical ointment .COMPLEX #80 grams lorazepam 1 mg tablet 1 mg PO DAILY PRN anxiety #10 tabs 06/02/22 06/02/22 Rx sennosides 8.6 mg capsule (senna) 8.6 mg PO BID PRN constipation #60 06/02/22 06/02/22 Rx caps amoxicillin 500 mg capsule 1,000 mg PO BID 12 days #48 caps 06/05/22 Rx blood sugar diagnostic (OneTouch #100 ea 06/05/22 Rx Ultra Test strips) blood-glucose meter (OneTouch #1 ea 06/05/22 Rx Ultra2 Meter) clarithromycin 500 mg tablet 500 mg PO BID 12 days #24 tabs 06/05/22 Rx lancets (Lancets,Ultra Thin) #100 ea 06/05/22 Rx lorazepam 1 mg tablet 1 mg PO DAILY PRN #10 tabs 06/05/22 Rx lorazepam 1 mg tablet mg 06/05/22 History needle (disp) 30 gauge 30 gauge x #100 ea 06/05/22 Rx 1/2 (BD Specialty Use [place]) omeprazole 40 mg capsule,delayed 40 mg PO BID 12 days #24 caps 06/05/22 Rx release Exam Narrative Exam Narrative: Lethargic female. Breath with odor of ketones. Const General: no acute distress Nutritional Appearance: obese Orientation: not alert, awake, not oriented x3 and confused Eyes General: appearance normal, both eyes and all related structures Sclera: sclerae normal Resp Effort & Inspection: normal respiratory effort Auscultation: clear to auscultation bilaterally and diminished lung sounds Cardio Rate: regular rate Rhythm: regular rhythm Heart Sounds: S1 normal and S2 normal GI Inspection: non-distended Palpation: soft and nontender Skin General skin exam: no rashes or lesions noted and other (several tattoos. ) Extrem General: no calf tenderness and edema (nonpitting) Psych Appearance: disheveled Mental Status: mental status grossly abnormal Speech and Movement: slurred speech Thought Content: no delusions (Not voicing delusional thoughts) Results Labs Result diagrams: 06/07/22 19:42 06/07/22 23:00 Labs: Laboratory Results - last 24 hr 06/07/22 06/07/22 06/07/22 19:15 19:15 19:15 WBC Cancelled RBC Cancelled Hgb Cancelled Hct Cancelled MCV Cancelled MCH Cancelled MCHC Cancelled RDW Cancelled Plt Count Cancelled MPV Cancelled Immature Gran % Cancelled Neutrophils % Cancelled Band Neutrophils % Cancelled Lymphocytes % Cancelled Atypical Lymphs % Cancelled Monocytes % Cancelled Eosinophils % Cancelled Basophils % Cancelled Metamyelocytes % Cancelled Myelocytes % Cancelled Promyelocytes % Cancelled Other Cells % Cancelled Nucleated RBC % Cancelled Absolute Neutrophils Cancelled Absolute Lymphocytes Cancelled Absolute Monocytes Cancelled Absolute Eosinophils Cancelled Absolute Basophils Cancelled RBC Morphology Cancelled Polychromasia Cancelled Hypochromasia Cancelled Poikilocytosis Cancelled Basophilic Stippling Cancelled Anisocytosis Cancelled Microcytosis Cancelled Macrocytosis Cancelled Spherocytes Cancelled Tear Drop Cells Cancelled Ovalocytes Cancelled Stomatocytes Cancelled Matias[place] Bodies Cancelled Adal Cells/Echinocytes Cancelled Acanthocytes (Spur) Cancelled Schistocytes Cancelled VBG pH VBG pCO2 VBG pO2 VBG HCO3 VBG Total CO2 VBG O2 Saturation VBG Base Excess Sodium 134 L Potassium 4.9 Chloride 88 L Carbon Dioxide 11.9 L Anion Gap 34.1 H BUN 33 H Creatinine 2.0 H Est GFR (CKD-EPI 2020) 29.69 Glucose 763 H* Calcium 10.0 Magnesium 2.3 Total Bilirubin 0.8 AST 34 ALT 49 Alkaline Phosphatase 89 Troponin I < 50 Total Protein 7.3 Albumin 3.3 L Lipase Ethyl Alcohol < 3.0 COVID-19 Source SARS-CoV-2 (PCR) 06/07/22 06/07/22 06/07/22 19:15 19:42 20:40 WBC 8.65 RBC 4.53 Hgb 12.4 Hct 39.6 MCV 87 D MCH 27.4 MCHC 31.3 L RDW 15.0 H Plt Count 303 MPV 10.4 Immature Gran % 0.3 Neutrophils % 92.8 Band Neutrophils % Lymphocytes % 4.3 Atypical Lymphs % Monocytes % 2.3 Eosinophils % 0.0 Basophils % 0.3 Metamyelocytes % Myelocytes % Promyelocytes % Other Cells % Nucleated RBC % 0.0 Absolute Neutrophils 8.02 H Absolute Lymphocytes 0.37 L Absolute Monocytes 0.20 Absolute Eosinophils 0.00 Absolute Basophils 0.03 RBC Morphology Polychromasia Hypochromasia Poikilocytosis Basophilic Stippling Anisocytosis Microcytosis Macrocytosis Spherocytes Tear Drop Cells Ovalocytes Stomatocytes [place] Bodies Adal Cells/Echinocytes Acanthocytes (Spur) Schistocytes VBG pH VBG pCO2 VBG pO2 VBG HCO3 VBG Total CO2 VBG O2 Saturation VBG Base Excess Sodium Potassium Chloride Carbon Dioxide Anion Gap BUN Creatinine Est GFR (CKD-EPI 2020) Glucose Calcium Magnesium Total Bilirubin AST ALT Alkaline Phosphatase Troponin I Total Protein Albumin Lipase 24 Ethyl Alcohol COVID-19 Source Nasal/Nares SARS-CoV-2 (PCR) Negative 06/07/22 06/07/22 06/07/22 21:33 21:33 21:33 WBC RBC Hgb Hct MCV MCH MCHC RDW Plt Count MPV Immature Gran % Neutrophils % Band Neutrophils % Lymphocytes % Atypical Lymphs % Monocytes % Eosinophils % Basophils % Metamyelocytes % Myelocytes % Promyelocytes % Other Cells % Nucleated RBC % Absolute Neutrophils Absolute Lymphocytes Absolute Monocytes Absolute Eosinophils Absolute Basophils RBC Morphology Polychromasia Hypochromasia Poikilocytosis Basophilic Stippling Anisocytosis Microcytosis Macrocytosis Spherocytes Tear Drop Cells Ovalocytes Stomatocytes [place]ias[place] Bodies [place] Cells/Echinocytes Acanthocytes (Spur) Schistocytes VBG pH 7.19 L* VBG pCO2 28 L VBG pO2 62 VBG HCO3 11 L VBG Total CO2 10 L VBG O2 Saturation 87 VBG Base Excess < -15 L Sodium Potassium Chloride Carbon Dioxide Anion Gap BUN Creatinine Est GFR (CKD-EPI 2020) Glucose 798 H* Calcium Magnesium Total Bilirubin AST ALT Alkaline Phosphatase Troponin I < 50 Total Protein Albumin Lipase Ethyl Alcohol COVID-19 Source SARS-CoV-2 (PCR) 06/07/22 06/07/22 06/07/22 22:21 23:00 23:00 WBC RBC Hgb Hct MCV MCH MCHC RDW Plt Count MPV Immature Gran % Neutrophils % Band Neutrophils % Lymphocytes % Atypical Lymphs % Monocytes % Eosinophils % Basophils % Metamyelocytes % Myelocytes % Promyelocytes % Other Cells % Nucleated RBC % Absolute Neutrophils Absolute Lymphocytes Absolute Monocytes Absolute Eosinophils Absolute Basophils RBC Morphology Polychromasia Hypochromasia Poikilocytosis Basophilic Stippling Anisocytosis Microcytosis Macrocytosis Spherocytes Tear Drop Cells Ovalocytes Stomatocytes [place] Bodies [place] Cells/Echinocytes Acanthocytes (Spur) Schistocytes VBG pH 7.17 L* VBG pCO2 26 L VBG pO2 64 VBG HCO3 10 L VBG Total CO2 9 L VBG O2 Saturation 88 VBG Base Excess < -15 L Sodium 139 Potassium 3.5 D Chloride 97 L Carbon Dioxide 11.3 L Anion Gap 30.7 H BUN 34 H Creatinine 2.2 H Est GFR (CKD-EPI 2020) 26.48 Glucose Cancelled 655 H* Calcium 8.3 L Magnesium Total Bilirubin AST ALT Alkaline Phosphatase Troponin I Total Protein Albumin Lipase Ethyl Alcohol COVID-19 Source SARS-CoV-2 (PCR) Last Vital Signs Temp 37.5 C 06/07/22 21:00 Pulse 86 06/07/22 22:35 Resp 18 06/07/22 22:40 BP 89/41 L 06/07/22 22:35 Pulse Ox 98 06/07/22 22:10
[2022-06-08 01:45] LABS: Bilirubin Small (Negative); Blood Trace-intact (Negative); Clarity Clear (Clear); Glucose 500 mg/dL (Negative); Ketones 80 mg/dL (Negative); Leukocyte Esterase Negative (Negative); Nitrite Negative (Negative); Urobilinogen 0.2 EU/dL (Up TO 0.2); pH 5.5 (5-8)
[2022-06-08 01:58] LABS: Bacteria Rare HPF (Negative); C & S Indicated? No/Sq. Contamination; Casts 0-2 Hyaline LPF (Negative); Crystals Negative HPF (Negative); Epithelial Cells Many HPF (Negative); Mucus Moderate (Negative); Other Cells Few Yeast (Negative); RBC 0-2 HPF (0-2); WBC 0-2 HPF (0-5)
[2022-06-08 02:09] LABS: *AMPHETAMINES SCREEN URINE Negative (Negative); *BARBITURATES SCREEN URINE Negative (Negative); *BENZODIAZEPINES SCREEN URINE Negative (Negative); Cannabinoids THC Negative (Negative); Cocaine Screen,Urine Negative (Negative); METHADONE URINE SCREEN Positive (Negative); OPIATES URINE SCREEN Negative (Negative)
[2022-06-08 02:10] LABS: Tricyclic Antidepressants Negative (Negative)
[2022-06-08 03:34] LABS: Anion Gap 16.2 mmol/L (3-11); BUN 32 mg/dL (7-18); CO2 23.8 mmol/L (21.0-32.0); CREATININE 2.1 mg/dL (0.55-1.02); Calcium 8.2 mg/dL (8.5-10.1); Chloride 102 mmol/L (98-107); Glucose 353 mg/dL (74-106); Potassium 3.7 mmol/L (3.5-5.1); Sodium 142 mmol/L (136-145)
[2022-06-08] MEDS: Normal Saline 1,000 ML 200 ML IV (03:36)
[2022-06-08 05:56] LABS: Abs Immature Grans 0.03 10^3/uL (0.0-0.06); Absolute Basophil Count 0.03 10^3/uL (0.0-0.2); Absolute Eosinophil Count 0.02 10^3/uL (0.0-0.7); Absolute Monocyte Count 0.59 10^3/uL (0.1-0.8); Absolute Neutrophil Count 6.17 10^3/uL (1.2-6.7); Basophils % 0.4; Eosinophils % 0.2; HCT 30.6 % (36.0-46.0); HGB 10.1 g/dL (11.2-15.7); Immature Grans % 0.4; Lymphocytes % 19.9; MCH 27.3 pg (27.0-33.0); MCV 83 fL (80-95); MPV 10.1 fL (8.0-11.0); Monocytes % 6.9; Neutrophils % 72.2; Platelet Count 262 10^3/uL (130-400); RDW 14.6 % (11.7-14.6); WBC 8.54 10^3/uL (4.4-10.8)
[2022-06-08 06:01] LABS: Anion Gap 9.5 mmol/L (3-11); BUN 33 mg/dL (7-18); CO2 28.5 mmol/L (21.0-32.0); CREATININE 2.1 mg/dL (0.55-1.02); Calcium 8.2 mg/dL (8.5-10.1); Chloride 105 mmol/L (98-107); Glucose 248 mg/dL (74-106); Potassium 3.4 mmol/L (3.5-5.1); Sodium 143 mmol/L (136-145)
[2022-06-08 06:34] LABS: BE (Venous) 4 mmol/L (-2-3); HCO3 (Venous) 30 mmol/L (23-28); O2 Sat (Venous) 74 %; TCO2 (Venous) 28 mmol/L (24-29); pCO2 (Venous) 51 mmHg (41-51); pH (Venous) 7.37 (7.31-7.41); pO2 (Venous) 41 mmHg
[2022-06-08] MEDS: POTASSIUM CHLORIDE/0.9% NACL 1,000 ML 250 MEQ IV (07:29)
[2022-06-08] MEDS: Insulin Glargine 300 UNITS/3 ML PEN 15 UNITS SC (07:30)
[2022-06-08] MEDS: POTASSIUM CHLORIDE 20 MEQ/100 ML BAG 50 MEQ IVPB ×2 (07:34→09:21)
[2022-06-08] MEDS: POTASSIUM CHLORIDE/D5-0.45NACL 1,000 ML 250 MEQ IV (08:16)
--- NOTE | 2022-06-08 09:08 | INITIAL_ITS ---
- If Service Date Differs Date of service: 06/08/22 Time of Service: 09:09 Care Management Initial Assess REASON FOR HOSPITALIZATION:: DKA PAST MEDICAL HISTORY/PAST SURGICAL HISTORY:: Medical History . Alcohol abuse. Alcohol dependence in remission. Anxiety. Cellulitis of left hand (02/01/15). a. secondary to cat bite vs. IVDU. b. has 13 cats at home. c. denies ongoing IVDU at this time. Closed fracture of distal end of right fibula (10/04/16). Constipation. COPD (chronic obstructive pulmonary disease). Current smoker (02/01/15). x 29 years. Depressive disorder. Diabetes mellitus, type II. a. chronic noncompliance. b. multiple episodes of admission for [facility]. c. ? diabetic retinopathy. Drug addiction. on Methadone. heroin use in remission x 3 years. Hyperlipemia. Hyperlipidemia. statin started . Non compliance with medical treatment (02/01/15). Panic disorder. PTSD (post-traumatic stress disorder). Schizophrenia. Umbilical hernia, incarcerated. Ventral hernia without obstruction or gangrene PREVIOUS FUNCTIONAL STATUS/SOCIAL/FAMILY SUPPORTS:: Josefina lives in an apartment in [facility] with her hCandan. Nani had a son who and his girlfriend and their daughter, who has special needs, lives with them as well. Nani is disabled and does not work. She is independent at baseline and does not receive any services. CURRENT FUNCTIONAL STATUS:: Josefina was sitting up in bed when met with her. She was still lethargic but was able to engage in conversation. Josefina was unclear about the details of what happened when she left [facility] on Sunday. She remembers going to [facility] but stated they were no help. She again shared that she and Chandan do not get along and that there is a lot of yelling and screaming. She informed that she needs a new place to live. She could not explain why she does not take her insulin, all she kept saying is that she needs a place to live - thats the problem. ADVANCE DIRECTIVES:: none on file Has patient been provided with info about the portal/API?: Yes Did the patient sign up for the portal?: Yes (previously) CODE STATUS:: Full Code INSURANCE COVERAGE / FINANCIAL ISSUES:: Medicaid PRIMARY CARE PHYSICIAN:: Xin Stern POTENTIAL DISCHARGE NEEDS:: Josefina would likely benefit from an inpatient stay in a psychiatric hospital for stabilization of her psychiatric issues. They appear to be interfering with her ability to manage her diabetes. She will likely be evaluated by mental health when she is medically cleared. PATIENT/FAMILY EDUCATION NEEDS:: Review of discharge instructions, limitations, activity, medications, diabetes control, diet, follow up plan, discuss Ask Me Three TRANSPORTATION:: to be determined by disposition PLAN:: Josefina is being treated and closely monitored in the ICU. This is her third admission in the last 2 weeks for DKA, due in part to her mental health issues. She will need a mental health evaluation and possible treatment. Josefina will follow up with her PCP and plan of care and transport with family if discharged directly home. CM will provide support to Josefina and her discharge needs. Readmission - Within the Past 30 Days Yes or No: Y - Date of First Admission Date of 1st Admission: 05/25/22 - Date of this Admission Date of Admission: 06/07/22 This admission was: Through ED - Office Visit Since 1st Admission Have you seen your PCP in the office since discharge?: No Had an appointment Been Scheduled?: Yes Date of Scheduled Appointment: 06/07/22 - I. Interview patient and/or Family Difficulty reaching your doctor or getting an office appt?: No Have you had trouble purchasing/ or taking medication?: No - Assessment for Readmission Summary of readmission circumstances, based upon interviews: This is Josefina's third admission for DKA in 2 weeks. She does not take her insulin at home because she believes it is poisoned, per her Chandan.
[2022-06-08] MEDS: Omeprazole 20 MG CAPCR 40 MG PO ×2 (10:03→20:10)
[2022-06-08] MEDS: Amoxicillin 500 MG CAP 1000 MG PO ×2 (10:04→20:10)
[2022-06-08] MEDS: Gabapentin 100 MG CAP PO ×3 (10:04→20:10)
[2022-06-08] MEDS: ARIPiprazole 2 MG TAB PO (10:04)
[2022-06-08] MEDS: Clarithromycin 500 MG TAB PO ×2 (10:04→20:10)
[2022-06-08] MEDS: Nicotine 14 MG/24 HR PATCH TD (10:04)
[2022-06-08] MEDS: Methadone Liquid 10 MG/ML 22 MG PO (10:06)
--- NOTE | 2022-06-08 10:28 | W.PM.PROGNOT ---
Date of Service Date of service: 06/08/22 Time of Service: 10:28 Assessment and Plan Assessment and plan (1) DKA (diabetic ketoacidosis): Status: Acute Assessment and plan: 3rd episode and admission for DKA this month. Patient's AG has resolved. glucose down to 95 mg/dL per MBS. I have advanced her diet. She is currently receiving D5 half-normal saline with 20 M EQ's of potassium chloride per liter at a rate of 250 mL/h. We will finish infusing 1 L of this fluid then decrease her IV fluids. If she is taken oral intake well then we can stop all IV fluids. Blood pressures were soft this morning hopefully this will come up with hydration. I am concerned that her hemoglobin hematocrit have dropped 2 g overnight. Hemoglobin is down to 10.1 g. A repeat her H&H later this morning. She is currently on IV Protonix for GI protection. She has had no overt evidence of GI bleeding. I am presuming that the drop in her H&H was from aggressive IV fluid hydration overnight. Critical care time spent interviewing and examining the patient, reviewing studies, discussing case with patient's nurse and consulting physicians was 30 minutes (2) Helicobacter pylori gastritis: Status: Acute Assessment and plan: Treatment initiated at previous admission after findings on EGD. Continue treatment of her Helicobacter with Biaxin and amoxicillin but should also add Pepto-Bismol to her regimen. Continue GI protection with omeprazole twice a day. (3) Substance abuse: Status: Chronic Assessment and plan: Cont methadone. (4) OMID (acute kidney injury): Status: Resolved Assessment and plan: prn creatinine remain elevated at 33 and 2.1. Baseline level is 19 and 1.0. Continue IV hydration. Check renal ultrasound this morning. Monitor urine output monitor BMP. Check urinalysis (5) Schizophrenia: Status: Suspected Assessment and plan: Continue Abilify 2 mg daily Qualifiers: Schizophrenia type: schizophreniform disorder Qualified Code(s): F20.81 - Schizophreniform disorder (6) Depressive disorder: Assessment and plan: As above; on abilify. She will need further mental health evaluation. (7) Alcohol dependence in remission: Assessment and plan: She had planned to not return home after d/c on 06/05/22 but she actually did. She wanted to stay away from her partner who she stated still drank alcohol. She is showing no signs of acute alcohol withdrawal. (8) Acute upper GI bleeding: Status: Resolved Assessment and plan: Patient underwent EGD on 05/30/[address] Huston. Per EGD note everything was normal except for some mild distal esophagitis. Biopsies were positive for H. pylori which patient is currently on treatment. We will monitor H&H. Presumably the acute drop overnight was secondary to dilution all. We will check for stool for occult blood. Patient remain on omeprazole twice a day along with amoxicillin and clarithromycin. Pepto-Bismol has been added. (9) Discharge planning issues: Status: Acute Assessment and plan: She has failed managing her diabetes, now on 3 occassions this month. Noncompliant with medications. She would benefit from inpatient mental health intervention if that is found to be available. Subjective Subjective Interval history since last seen: Kareen states she feels that this morning she denies any acute complaints. She cannot really give me a reason why she quit taking her insulin except she says she lost it in the process of fighting with her . Her anion gap is closed her blood sugar is down to 95. She is now receiving IV fluids with supplemental dextrose as well as potassium. We will get her started on an diabetic diet this morning and convert her back to basal bolus insulin. Exam Narrative Exam Narrative: Kareen is awake alert oriented answering questions appropriately. She is desiring to eat and drink. We will putting her on a diabetic diet HEENT is unremarkable Lungs are clear to auscultation Heart is regular rate and rhythm Abdomen soft nontender nondistended normal bowel sounds Extremities without peripheral cyanosis or edema. Objective Last Vital Signs Temp 37.1 C 06/08/22 04:22 Pulse 67 06/08/22 09:28 Resp 13 06/08/22 09:28 BP 94/52 L 06/08/22 09:28 Pulse Ox 90 L 06/08/22 09:28 Laboratory Results - last 24 hr 06/07/22 06/07/22 06/07/22 19:15 19:15 19:15 WBC Cancelled RBC Cancelled Hgb Cancelled Hct Cancelled MCV Cancelled MCH Cancelled MCHC Cancelled RDW Cancelled Plt Count Cancelled MPV Cancelled Immature Gran % Cancelled Neutrophils % Cancelled Band Neutrophils % Cancelled Lymphocytes % Cancelled Atypical Lymphs % Cancelled Monocytes % Cancelled Eosinophils % Cancelled Basophils % Cancelled Metamyelocytes % Cancelled Myelocytes % Cancelled Promyelocytes % Cancelled Other Cells % Cancelled Nucleated RBC % Cancelled Absolute Neutrophils Cancelled Absolute Lymphocytes Cancelled Absolute Monocytes Cancelled Absolute Eosinophils Cancelled Absolute Basophils Cancelled RBC Morphology Cancelled Polychromasia Cancelled Hypochromasia Cancelled Poikilocytosis Cancelled Basophilic Stippling Cancelled Anisocytosis Cancelled Microcytosis Cancelled Macrocytosis Cancelled Spherocytes Cancelled Tear Drop Cells Cancelled Ovalocytes Cancelled Stomatocytes Cancelled [place] Bodies Cancelled [place] Cells/Echinocytes Cancelled Acanthocytes (Spur) Cancelled Schistocytes Cancelled VBG pH VBG pCO2 VBG pO2 VBG HCO3 VBG Total CO2 VBG O2 Saturation VBG Base Excess Sodium 134 L Potassium 4.9 Chloride 88 L Carbon Dioxide 11.9 L Anion Gap 34.1 H BUN 33 H Creatinine 2.0 H Est GFR (CKD-EPI 2020) 29.69 Glucose 763 H* Calcium 10.0 Magnesium 2.3 Total Bilirubin 0.8 AST 34 ALT 49 Alkaline Phosphatase 89 Troponin I < 50 Total Protein 7.3 Albumin 3.3 L Lipase Urine Color Urine Clarity Urine pH Ur Specific [place] Urine Protein Urine Ketones Urine Blood Urine Nitrite Urine Bilirubin Urine Urobilinogen Ur Leukocyte Esterase Urine RBC Urine WBC Ur Epithelial Cells Urine Crystals Urine Bacteria Urine Casts Urine Mucus Urine Other Ur Culture Indicated? Urine Glucose Urine Opiates Screen Urine Methadone Screen Ur Barbiturates Screen Ur Tricyclics Screen Ur Amphetamines Screen U Benzodiazepines Scrn Urine Cocaine Screen Ur THC Screen Ethyl Alcohol < 3.0 COVID-19 Source SARS-CoV-2 (PCR) 06/07/22 06/07/22 06/07/22 19:15 19:42 20:40 WBC 8.65 RBC 4.53 Hgb 12.4 Hct 39.6 MCV 87 D MCH 27.4 MCHC 31.3 L RDW 15.0 H Plt Count 303 MPV 10.4 Immature Gran % 0.3 Neutrophils % 92.8 Band Neutrophils % Lymphocytes % 4.3 Atypical Lymphs % Monocytes % 2.3 Eosinophils % 0.0 Basophils % 0.3 Metamyelocytes % Myelocytes % Promyelocytes % Other Cells % Nucleated RBC % 0.0 Absolute Neutrophils 8.02 H Absolute Lymphocytes 0.37 L Absolute Monocytes 0.20 Absolute Eosinophils 0.00 Absolute Basophils 0.03 RBC Morphology Polychromasia Hypochromasia Poikilocytosis Basophilic Stippling Anisocytosis Microcytosis Macrocytosis Spherocytes Tear Drop Cells Ovalocytes Stomatocytes [place] Bodies Adal Cells/Echinocytes Acanthocytes (Spur) Schistocytes VBG pH VBG pCO2 VBG pO2 VBG HCO3 VBG Total CO2 VBG O2 Saturation VBG Base Excess Sodium Potassium Chloride Carbon Dioxide Anion Gap BUN Creatinine Est GFR (CKD-EPI 2020) Glucose Calcium Magnesium Total Bilirubin AST ALT Alkaline Phosphatase Troponin I Total Protein Albumin Lipase 24 Urine Color Urine Clarity Urine pH Ur Specific [place] Urine Protein Urine Ketones Urine Blood Urine Nitrite Urine Bilirubin Urine Urobilinogen Ur Leukocyte Esterase Urine RBC Urine WBC Ur Epithelial Cells Urine Crystals Urine Bacteria Urine Casts Urine Mucus Urine Other Ur Culture Indicated? Urine Glucose Urine Opiates Screen Urine Methadone Screen Ur Barbiturates Screen Ur Tricyclics Screen Ur Amphetamines Screen U Benzodiazepines Scrn Urine Cocaine Screen Ur THC Screen Ethyl Alcohol COVID-19 Source Nasal/Nares SARS-CoV-2 (PCR) Negative 06/07/22 06/07/22 06/07/22 21:33 21:33 21:33 WBC RBC Hgb Hct MCV MCH MCHC RDW Plt Count MPV Immature Gran % Neutrophils % Band Neutrophils % Lymphocytes % Atypical Lymphs % Monocytes % Eosinophils % Basophils % Metamyelocytes % Myelocytes % Promyelocytes % Other Cells % Nucleated RBC % Absolute Neutrophils Absolute Lymphocytes Absolute Monocytes Absolute Eosinophils Absolute Basophils RBC Morphology Polychromasia Hypochromasia Poikilocytosis Basophilic Stippling Anisocytosis Microcytosis Macrocytosis Spherocytes Tear Drop Cells Ovalocytes Stomatocytes [place] Bodies Adal Cells/Echinocytes Acanthocytes (Spur) Schistocytes VBG pH 7.19 L* VBG pCO2 28 L VBG pO2 62 VBG HCO3 11 L VBG Total CO2 10 L VBG O2 Saturation 87 VBG Base Excess < -15 L Sodium Potassium Chloride Carbon Dioxide Anion Gap BUN Creatinine Est GFR (CKD-EPI 2020) Glucose 798 H* Calcium Magnesium Total Bilirubin AST ALT Alkaline Phosphatase Troponin I < 50 Total Protein Albumin Lipase Urine Color Urine Clarity Urine pH Ur Specific [place] Urine Protein Urine Ketones Urine Blood Urine Nitrite Urine Bilirubin Urine Urobilinogen Ur Leukocyte Esterase Urine RBC Urine WBC Ur Epithelial Cells Urine Crystals Urine Bacteria Urine Casts Urine Mucus Urine Other Ur Culture Indicated? Urine Glucose Urine Opiates Screen Urine Methadone Screen Ur Barbiturates Screen Ur Tricyclics Screen Ur Amphetamines Screen U Benzodiazepines Scrn Urine Cocaine Screen Ur THC Screen Ethyl Alcohol COVID-19 Source SARS-CoV-2 (PCR) 06/07/22 06/07/22 06/07/22 22:21 23:00 23:00 WBC RBC Hgb Hct MCV MCH MCHC RDW Plt Count MPV Immature Gran % Neutrophils % Band Neutrophils % Lymphocytes % Atypical Lymphs % Monocytes % Eosinophils % Basophils % Metamyelocytes % Myelocytes % Promyelocytes % Other Cells % Nucleated RBC % Absolute Neutrophils Absolute Lymphocytes Absolute Monocytes Absolute Eosinophils Absolute Basophils RBC Morphology Polychromasia Hypochromasia Poikilocytosis Basophilic Stippling Anisocytosis Microcytosis Macrocytosis Spherocytes Tear Drop Cells Ovalocytes Stomatocytes [place] Bodies Adal Cells/Echinocytes Acanthocytes (Spur) Schistocytes VBG pH 7.17 L* VBG pCO2 26 L VBG pO2 64 VBG HCO3 10 L VBG Total CO2 9 L VBG O2 Saturation 88 VBG Base Excess < -15 L Sodium 139 Potassium 3.5 D Chloride 97 L Carbon Dioxide 11.3 L Anion Gap 30.7 H BUN 34 H Creatinine 2.2 H Est GFR (CKD-EPI 2020) 26.48 Glucose Cancelled 655 H* Calcium 8.3 L Magnesium Total Bilirubin AST ALT Alkaline Phosphatase Troponin I Total Protein Albumin Lipase Urine Color Urine Clarity Urine pH Ur Specific [place] Urine Protein Urine Ketones Urine Blood Urine Nitrite Urine Bilirubin Urine Urobilinogen Ur Leukocyte Esterase Urine RBC Urine WBC Ur Epithelial Cells Urine Crystals Urine Bacteria Urine Casts Urine Mucus Urine Other Ur Culture Indicated? Urine Glucose Urine Opiates Screen Urine Methadone Screen Ur Barbiturates Screen Ur Tricyclics Screen Ur Amphetamines Screen U Benzodiazepines Scrn Urine Cocaine Screen Ur THC Screen Ethyl Alcohol COVID-19 Source SARS-CoV-2 (PCR) 06/08/22 06/08/22 06/08/22 01:25 01:25 03:05 WBC RBC Hgb Hct MCV MCH MCHC RDW Plt Count MPV Immature Gran % Neutrophils % Band Neutrophils % Lymphocytes % Atypical Lymphs % Monocytes % Eosinophils % Basophils % Metamyelocytes % Myelocytes % Promyelocytes % Other Cells % Nucleated RBC % Absolute Neutrophils Absolute Lymphocytes Absolute Monocytes Absolute Eosinophils Absolute Basophils RBC Morphology Polychromasia Hypochromasia Poikilocytosis Basophilic Stippling Anisocytosis Microcytosis Macrocytosis Spherocytes Tear Drop Cells Ovalocytes Stomatocytes [place] Bodies Adal Cells/Echinocytes Acanthocytes (Spur) Schistocytes VBG pH VBG pCO2 VBG pO2 VBG HCO3 VBG Total CO2 VBG O2 Saturation VBG Base Excess Sodium 142 Potassium 3.7 Chloride 102 Carbon Dioxide 23.8 Anion Gap 16.2 H BUN 32 H Creatinine 2.1 H Est GFR (CKD-EPI 2020) 28.00 Glucose 353 H Calcium 8.2 L Magnesium Total Bilirubin AST ALT Alkaline Phosphatase Troponin I Total Protein Albumin Lipase Urine Color Yellow Urine Clarity Clear Urine pH 5.5 Ur Specific [place] 1.020 Urine Protein Negative Urine Ketones 80 H Urine Blood Trace-intact H Urine Nitrite Negative Urine Bilirubin Small H Urine Urobilinogen 0.2 Ur Leukocyte Esterase Negative Urine RBC 0-2 Urine WBC 0-2 Ur Epithelial Cells Many Urine Crystals Negative Urine Bacteria Rare Urine Casts 0-2 Hyaline Urine Mucus Moderate Urine Other Few Yeast Ur Culture Indicated? No/Sq. Contamination Urine Glucose 500 H Urine Opiates Screen Negative Urine Methadone Screen Positive A Ur Barbiturates Screen Negative Ur Tricyclics Screen Negative Ur Amphetamines Screen Negative U Benzodiazepines Scrn Negative Urine Cocaine Screen Negative Ur THC Screen Negative Ethyl Alcohol COVID-19 Source SARS-CoV-2 (PCR) 06/08/22 06/08/22 06/08/22 05:15 05:15 06:20 WBC 8.54 RBC 3.70 L Hgb 10.1 L D Hct 30.6 L MCV 83 D MCH 27.3 MCHC 33.0 RDW 14.6 Plt Count 262 MPV 10.1 Immature Gran % 0.4 Neutrophils % 72.2 Band Neutrophils % Lymphocytes % 19.9 Atypical Lymphs % Monocytes % 6.9 Eosinophils % 0.2 Basophils % 0.4 Metamyelocytes % Myelocytes % Promyelocytes % Other Cells % Nucleated RBC % 0.0 Absolute Neutrophils 6.17 Absolute Lymphocytes 1.70 Absolute Monocytes 0.59 Absolute Eosinophils 0.02 Absolute Basophils 0.03 RBC Morphology Polychromasia Hypochromasia Poikilocytosis Basophilic Stippling Anisocytosis Microcytosis Macrocytosis Spherocytes Tear Drop Cells Ovalocytes Stomatocytes [place] Bodies [place] Cells/Echinocytes Acanthocytes (Spur) Schistocytes VBG pH 7.37 VBG pCO2 51 VBG pO2 41 VBG HCO3 30 H VBG Total CO2 28 VBG O2 Saturation 74 VBG Base Excess 4 H Sodium 143 Potassium 3.4 L Chloride 105 Carbon Dioxide 28.5 Anion Gap 9.5 BUN 33 H Creatinine 2.1 H Est GFR (CKD-EPI 2020) 28.00 Glucose 248 H Calcium 8.2 L Magnesium Total Bilirubin AST ALT Alkaline Phosphatase Troponin I Total Protein Albumin Lipase Urine Color Urine Clarity Urine pH Ur Specific [place] Urine Protein Urine Ketones Urine Blood Urine Nitrite Urine Bilirubin Urine Urobilinogen Ur Leukocyte Esterase Urine RBC Urine WBC Ur Epithelial Cells Urine Crystals Urine Bacteria Urine Casts Urine Mucus Urine Other Ur Culture Indicated? Urine Glucose Urine Opiates Screen Urine Methadone Screen Ur Barbiturates Screen Ur Tricyclics Screen Ur Amphetamines Screen U Benzodiazepines Scrn Urine Cocaine Screen Ur THC Screen Ethyl Alcohol COVID-19 Source SARS-CoV-2 (PCR) 06/08/22 23:30 WBC RBC Hgb Hct MCV MCH MCHC RDW Plt Count MPV Immature Gran % Neutrophils % Band Neutrophils % Lymphocytes % Atypical Lymphs % Monocytes % Eosinophils % Basophils % Metamyelocytes % Myelocytes % Promyelocytes % Other Cells % Nucleated RBC % Absolute Neutrophils Absolute Lymphocytes Absolute Monocytes Absolute Eosinophils Absolute Basophils RBC Morphology Polychromasia Hypochromasia Poikilocytosis Basophilic Stippling Anisocytosis Microcytosis Macrocytosis Spherocytes Tear Drop Cells Ovalocytes Stomatocytes [place] Bodies [place] Cells/Echinocytes Acanthocytes (Spur) Schistocytes VBG pH VBG pCO2 VBG pO2 VBG HCO3 VBG Total CO2 VBG O2 Saturation VBG Base Excess Sodium Cancelled Potassium Cancelled Chloride Cancelled Carbon Dioxide Cancelled Anion Gap Cancelled BUN Cancelled Creatinine Cancelled Est GFR (CKD-EPI 2020) Cancelled Glucose Cancelled Calcium Cancelled Magnesium Total Bilirubin AST ALT Alkaline Phosphatase Troponin I Total Protein Albumin Lipase Urine Color Urine Clarity Urine pH Ur Specific [place] Urine Protein Urine Ketones Urine Blood Urine Nitrite Urine Bilirubin Urine Urobilinogen Ur Leukocyte Esterase Urine RBC Urine WBC Ur Epithelial Cells Urine Crystals Urine Bacteria Urine Casts Urine Mucus Urine Other Ur Culture Indicated? Urine Glucose Urine Opiates Screen Urine Methadone Screen Ur Barbiturates Screen Ur Tricyclics Screen Ur Amphetamines Screen U Benzodiazepines Scrn Urine Cocaine Screen Ur THC Screen Ethyl Alcohol COVID-19 Source SARS-CoV-2 (PCR)
[2022-06-08 11:32] LABS: Bilirubin Large (Negative); Blood Negative (Negative); Clarity Clear (Clear); Glucose 500 mg/dL (Negative); Ketones 40 mg/dL (Negative); Leukocyte Esterase Negative (Negative); Nitrite Negative (Negative); Specific Gravity 1.025 (1.005-1.025); Urobilinogen 0.2 EU/dL (Up TO 0.2); pH 5.5 (5-8)
[2022-06-08 12:13] LABS: Iron 30 ug/dL (50-170); Total Iron Binding Capacity 94 ug/dL (250-450); Transferrin Sat 32 % (15-50)
[2022-06-08 12:19] LABS: Reticulocyte 1.4 % (0.5-2.4)
[2022-06-08 12:27] LABS: Ferritin 106 ng/mL (8-252)
[2022-06-08] MEDS: Insulin Aspart 300 UNITS/3 ML PEN SC ×3 (13:17→17:52)
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
[2022-06-08] MEDS: Normal Saline Flush 10 ML SYR IVP (17:11)
[2022-06-08 17:40] LABS: HCT 35.8 % (36.0-46.0); HGB 11.4 g/dL (11.2-15.7)
[2022-06-08 18:13] LABS: Anion Gap 4.5 mmol/L (3-11); BUN 31 mg/dL (7-18); CO2 28.5 mmol/L (21.0-32.0); CREATININE 1.9 mg/dL (0.55-1.02); Calcium 8.2 mg/dL (8.5-10.1); Chloride 105 mmol/L (98-107); Estimated GFR 31.57 (mL/min/1.73m2); Glucose 129 mg/dL (74-106); Sodium 138 mmol/L (136-145)
[2022-06-08 18:17] LABS: Potassium 4.9 mmol/L (3.5-5.1)
[2022-06-08] MEDS: Enoxaparin 40 MG/0.4 ML SYR SC (20:10)
[2022-06-08] MEDS: Atorvastatin 20 MG TAB PO (20:10)
[2022-06-08] MEDS: Insulin Glargine 300 UNITS/3 ML PEN 20 UNITS SC (22:03)
[2022-06-08 22:19] LABS: LDH 281 U/L (81-234)
[2022-06-09 08:14] VITALS: BP 116/78; PULSE 65; RESP 20; TEMP 37; O2SAT 95
--- NOTE | 2022-06-09 08:30 | NUR.NOTE ---
Patient complains of slight nausea. Patient will be given promethazine IV.Nursing Note:
[2022-06-09] MEDS: Methadone Liquid 10 MG/ML 22 MG PO (08:36)
[2022-06-09] MEDS: Normal Saline Flush 10 ML SYR IVP (08:38)
[2022-06-09] MEDS: Omeprazole 20 MG CAPCR 40 MG PO (08:39)
[2022-06-09] MEDS: Clarithromycin 500 MG TAB PO (08:39)
[2022-06-09] MEDS: Amoxicillin 500 MG CAP 1000 MG PO (08:39)
[2022-06-09] MEDS: ARIPiprazole 2 MG TAB PO (08:40)
[2022-06-09] MEDS: Gabapentin 100 MG CAP PO ×2 (08:40→13:47)
[2022-06-09] MEDS: Nicotine 14 MG/24 HR PATCH TD (08:40)
--- NOTE | 2022-06-09 09:51 | W.PM.PROGNOT ---
Date of Service Date of service: 06/09/22 Time of Service: 09:52 Assessment and Plan Assessment and plan (1) DKA (diabetic ketoacidosis): Status: Acute Assessment and plan: 3rd episode and admission for DKA this month. Glucoses come under control.. Blood sugars range from 119 this morning to 165 yesterday at lunchtime. Patient received 20 units of Lantus last night and is currently on carb coverage of 1 unit per 10 g of carbohydrates along with moderate sliding scale. Professional time spent interviewing and examining patient, discussion of goals of care with hospital team (care management, nursing and consulting professionals) was 15 minutes. (2) Helicobacter pylori gastritis: Status: Acute Assessment and plan: Continue quadruple therapy for H. pylori gastritis including Pepto-Bismol, amoxicillin, Biaxin, omeprazole twice a day. (3) Substance abuse: Status: Chronic Assessment and plan: Cont methadone. (4) OMID (acute kidney injury): Status: Resolved Assessment and plan: repeat BMP pending but having good intake and output (5) Schizophrenia: Status: Suspected Assessment and plan: Continue Abilify 2 mg daily Qualifiers: Schizophrenia type: schizophreniform disorder Qualified Code(s): F20.81 - Schizophreniform disorder (6) Depressive disorder: Assessment and plan: As above; on abilify. She will need further mental health evaluation as outpatient. (7) Alcohol dependence in remission: Assessment and plan: no evidence of acute alcohol withdrawal (8) Acute upper GI bleeding: Status: Resolved Assessment and plan: Patient underwent EGD on 05/30/[address] Huston. Per EGD note everything was normal except for some mild distal esophagitis. Biopsies were positive for H. pylori which patient is currently on treatment. We will monitor H&H. Presumably the acute drop overnight was secondary to dilution all. We will check for stool for occult blood. Patient remain on omeprazole twice a day along with amoxicillin and clarithromycin. Pepto-Bismol has been added. repeat hemoglobin last night was improved at 11.4 gm, CBC is pending. her iron studies suggest that she has anemia of chronic disease, no iron deficiency (TIBC is low, iron is low while ferritin is normal) (9) Discharge planning issues: Status: Acute Assessment and plan: She has failed managing her diabetes, now on 3 occassions this month. Noncompliant with medications. I will discuss w/ CM regarding what resources can be marshalled to improve her outpatient compliance. She needs close diabetic supervision as well as supervision of her compliance of her psychiatric meds. Subjective Subjective Interval history since last seen: Patient is feeling better she is sitting up eating breakfast actually having a second breakfast. Blood sugars have come under control. Glucose this morning was 119. Her presented to see her this morning and he has concerns about her going home because of her repeat behavior of being noncompliant with her medications. She is arguing with him saying that she took her medications as prescribed. Told her that we cannot control her behavior outside the hospital but at the present time her DKA is resolved and her blood sugars are under control. I did recommend that home health be consulted to follow-up with her for diabetic education and to monitor compliance with her medications. I also recommend that she follow-up with her mental health counselor regarding her schizophrenia. Exam Narrative Exam Narrative: Patient sitting up in the chair she is alert and oriented eating her breakfast. Examination is unremarkable. Objective Last Vital Signs Temp 37.0 C 06/09/22 08:14 Pulse 65 06/09/22 08:14 Resp 20 06/09/22 08:14 BP 116/78 06/09/22 08:14 Pulse Ox 95 06/09/22 08:14 Laboratory Results - last 24 hr 06/08/22 06/08/22 06/08/22 06:20 06:20 06:20 Hgb Hct Reticulocyte % (Auto) Sodium Potassium Chloride Carbon Dioxide Anion Gap BUN Creatinine Est GFR (CKD-EPI 2020) Glucose Calcium Iron 30 L TIBC 94 L Transferrin % Sat 32 Ferritin 106 Lactate Dehydrogenase Urine Color Urine Clarity Urine pH Ur Specific [place] Urine Protein Urine Ketones Urine Blood Urine Nitrite Urine Bilirubin Urine Urobilinogen Ur Leukocyte Esterase Urine Glucose Add-On Test Request TNP 06/08/22 06/08/22 06/08/22 06:20 11:15 17:18 Hgb Hct Reticulocyte % (Auto) 1.4 Sodium 138 Potassium 4.9 D Chloride 105 Carbon Dioxide 28.5 Anion Gap 4.5 BUN 31 H Creatinine 1.9 H Est GFR (CKD-EPI 2020) 31.57 Glucose 129 H Calcium 8.2 L Iron TIBC Transferrin % Sat Ferritin Lactate Dehydrogenase Urine Color Yellow Urine Clarity Clear Urine pH 5.5 Ur Specific [place] 1.025 Urine Protein Negative Urine Ketones 40 H Urine Blood Negative Urine Nitrite Negative Urine Bilirubin Large H Urine Urobilinogen 0.2 Ur Leukocyte Esterase Negative Urine Glucose 500 H Add-On Test Request 06/08/22 06/08/22 17:18 22:00 Hgb 11.4 Hct 35.8 L Reticulocyte % (Auto) Sodium Potassium Chloride Carbon Dioxide Anion Gap BUN Creatinine Est GFR (CKD-EPI 2020) Glucose Calcium Iron TIBC Transferrin % Sat Ferritin Lactate Dehydrogenase 281 H Urine Color Urine Clarity Urine pH Ur Specific [place] Urine Protein Urine Ketones Urine Blood Urine Nitrite Urine Bilirubin Urine Urobilinogen Ur Leukocyte Esterase Urine Glucose Add-On Test Request
--- NOTE | 2022-06-09 10:09 | NUR.NOTE ---
Case management will speak to patient about taking her insulin and determine if patient has a sufficient supply of same. Patient's indicates patient has plenty of insulin at home. Follow-up appointment with patient's PCP is made for patient since she will be discharge today.
--- NOTE | 2022-06-09 10:17 | PDOC.HHF2F_ITS ---
Home Health Certification Home Health Certification: 1. Encounter Date and Reason I certify that Josefina Higginbotham was seen by Jacky Galo on 06/09/22 and that I had a [id number] encounter with this patient that meets the physician face to face encounter requirements. 2. Clinical Findings Supporting Skilled Need and Homebound Status I certify that home health services are medically necessary, include either intermittent fpc and/or physical/speech therapy, and that this pat ient is homebound in that absences from the home require considerable and taxing effort and are infrequent or of short duration, or are attributable to the need to receive medical care. [X] (a) Attached documentation from encounter provides clinical findings supporting skilled need and homebound status (including what assistance patient requires to leave the home). The encounter with the patient was in whole, or in part, for the following medical condition, which is the primary reason for home health care: DKA Snf: to provide diabetic education and to monitor compliance w/ her insulin treatment; monitor for recurrent DKA Physical Therapy: Speech Therapy: Homebound: patient's schizophrenia and recurrent DKA jeopardizes her health and necessitates home health intervention to assist the patient and her to manage her conditions at home. 3. Certification and Authentication I certify that I composed the above information based on my clinical judgement relating to this patient's medical condition and, if applicable, clinical findings communicated to me by the NPP or inpatient physician who performed the Home Health Referral. All further orders will be obtained through ___ELENITA LIM NP (Community Based Physician - PCP)
--- NOTE | 2022-06-09 10:17 | DSE_ITS ---
Date of service: 06/09/22 Time of Service: 10:17 DS: Diagnosis Discharge Diagnosis (1) DKA (diabetic ketoacidosis): Status: Resolved Asessment and Plan: Patient presented to the ER in acute DKA after failing to take her insulin as prescribed. See ED note and H&P for details of her workup and admission labs. patient was treated w/ insulin drip per [place] protocol w/ frequent monitoring of her glucose and electrolytes and her potassium and magnesium were replenished. When her anion gap closed she was restarted on basal and bolus insulin w/ Lantus and Novolog. She was monitored for a day to be sure that she did not suffer from hypoglycemia or go back into DKA. She did well and was discharged home. See home med list (2) Helicobacter pylori gastritis: Status: Acute Asessment and Plan: patient was kept on her current treatment w/ amoxicillin, clarithromycin and omeprazole but Pepto-bismol was added to her regimen to help eradicate the Helicobacter. She should complete a 2 wk treatment and follow up w/ Dr. Huston for follow up testing. (3) Substance abuse: Status: Chronic (4) OMID (acute kidney injury): Status: Resolved Asessment and Plan: resolved w/ iv fluids. (5) Schizophrenia: Status: Chronic Asessment and Plan: patient was kept on her Abilify and she cooperated in taking this while hospitalized. (6) Acute upper GI bleeding: Status: Resolved Asessment and Plan: patient did not demonstrate any acute bleeding during this hospitalization. This is an old diagnosis from her prior hospitalizations. Discharge Plan Disposition Patient Disposition: HOME W/HOME HEALTH SERVICE Condition: Good Discharge Details Reason For Visit: DKA Admit Date/Time: 06/07/22 20:16 Admit Provider: Anuj Whitmore Attending Provider: Anuj Whitmore Primary Care Provider: Xin Stern Home Meds and New Rx's Prescriptions: New bismuth subsalicylate [Stomach Relief] 262 mg/15 mL Suspension 524 mg PO QID Qty: 1200 1RF Continued mupirocin 2 % ointment 1 applic TP TID PRN (Reason: skin infection) Qty: 22 1RF clotrimazole 1 % cream 1 applic TP BID Qty: 28 2RF Rx Instructions: apply to feet twice a day until rash is gone albuterol sulfate 2.5 mg/0.5 mL solution for nebulization 5 mg IH Q6H PRN (Reason: shortness of breath or wheezing) Qty: 30 2RF miconazole nitrate 2 % cream 1 applic TP BID PRN (Reason: vaginitis) Qty: 28 2RF Rx Instructions: local application twice a day as needed (itching,burning) docusate sodium [Colace] 100 mg capsule 100 mg PO BID Qty: 180 3RF nicotine 14 mg/24 hr patch 24 hour 1 patch transdermal DAILY Qty: 28 0RF (DME) lancets [FreeStyle Lancets] 28 gauge misc 1 ea Miscellaneous QID Qty: 400 4RF Rx Instructions: Check blood sugar 4times a day terbinafine HCl [Lamisil AT] 1 % cream 1 applic topical BID Qty: 30 1RF Rx Instructions: to affected area on feet epinephrine [EpiPen 2-Tejinder] 0.3 MG/0.3 ML auto-injector 0.3 mg IM ONCE Qty: 1 (DME) blood-glucose meter [FreeStyle Lite Meter] Kit See Dose Instructions .ROUTE .MEDSUPPLY Qty: 1 0RF Dose Instruction: As directed Rx Instructions: As directed/ check QiD/ cholecalciferol (vitamin D3) 25 mcg (1,000 unit) capsule 25 mcg PO DAILY Qty: 90 3RF (DME) pen needle, diabetic 31 gauge x 1/3 needle 1 ea Miscellaneous QID Qty: 200 6RF Rx Instructions: 31G X 3/16 needle Dx: E11.8 (DME) Blood Glucose Test Strip 1 ea Miscellaneous qid and Qty: 400 4RF Rx Instructions: Free Style Lite strips. PT USES INSULIN. TESTS QID. DIAGNOSIS CODE E11.649 atorvastatin 20 mg tablet 20 mg PO DAILY Qty: 90 0RF insulin aspart U-100 [Novolog Flexpen U-100 Insulin] 100 unit/mL (3 mL) insulin pen See Rx Instructions .ROUTE .COMPLEX Qty: 15 3RF Dose Instruction: INJECT 5 UNITS UNDER THE SKIN THREE TIMES DAILY WITH MEALS Rx Instructions: INJECT 5 UNITS UNDER THE SKIN THREE TIMES DAILY WITH MEALS albuterol sulfate 90 mcg/actuation HFA aerosol inhaler 2 puff IH QID PRN (Reason: shortness of breath or wheezing) Qty: 3 4RF triamcinolone acetonide 0.1 % ointment See Rx Instructions .ROUTE .COMPLEX Qty: 80 0RF Dose Instruction: APPLY TOPICALLY TO THE AFFECTED AREA TWICE DAILY Rx Instructions: APPLY TOPICALLY TO THE AFFECTED AREA TWICE DAILY senna 8.6 mg capsule 8.6 mg PO BID PRN (Reason: constipation) Qty: 60 2RF lorazepam 1 mg tablet 1 mg PO DAILY PRN (Reason: anxiety) Qty: 10 0RF Rx Instructions: Do not fill before 03/31/2022 amoxicillin 500 mg Capsule 1,000 mg PO BID 12 Days Qty: 48 0RF clarithromycin 500 mg tablet 500 mg PO BID 12 Days Qty: 24 0RF lorazepam 1 mg tablet lorazepam 1 mg tablet 1 mg PO DAILY PRNQty: 10 0RF omeprazole 40 mg capsule,delayed release(DR/EC) 40 mg PO BID 12 Days Qty: 24 0RF (DME) blood-glucose meter [OneTouch Ultra2 Meter] Misc See Rx Instructions .Route Qty: 1 0RF Rx Instructions: TID glucose monitoring (DME) OneTouch Ultra Test Strip See Rx Instructions .Route Qty: 100 0RF Rx Instructions: TID glucose monitoring. (DME) BD Specialty Use [place] 30 gauge x 1/2 needle See Rx Instructions .Route Qty: 100 0RF Rx Instructions: TID glucose injections (DME) lancets [Lancets,Ultra Thin] Misc See Rx Instructions .Route Qty: 100 0RF Rx Instructions: TID glucose monitoring methadone 10 mg/5 mL Solution 22 mg PO DAILY Rx Instructions: prescribed @ [facility] per pt ondansetron HCl 4 mg tablet 2 mg PO DAILY PRN (Reason: nausea and vomiting) folic acid 1 mg Tablet 1 mg PO QAM Qty: 30 0RF gabapentin 100 mg Capsule 100 mg PO TID Qty: 90 0RF multivitamin [Multiple Vitamins] Tablet 1 tab PO QAM Qty: 30 0RF sucralfate 1 gram Tablet 1 g PO AC & HS Qty: 120 0RF aripiprazole [Abilify] 2 mg Tablet 2 mg PO DAILY Qty: 30 0RF thiamine mononitrate (vit B1) [Vitamin B-1 (mononitrate)] 100 mg Tablet 100 mg PO QAM Qty: 30 0RF naloxone [Narcan] 4 mg/actuation spray,non-aerosol 4 mg intranasal Q2-3M PRNQty: 2 0RF Rx Instructions: spray 1 dose into ONE nostril; alternate nostrils w each dose until help arrives omeprazole 40 mg capsule,delayed release(DR/EC) 40 mg PO BID Qty: 60 3RF Changed insulin glargine 100 unit/mL (3 mL) insulin pen 20 unit SC QAM Qty: 30 11RF Discontinued lisinopril 20 mg tablet 20 mg PO DAILY Qty: 90 3RF Discharge Instructions Instructions: Helicobacter Pylori (GEN), Diabetic Ketoacidosis (DC) Additional Instructions: Monitor blood sugars at least 4 times a day checking her glucose before meals and at bedtime. Additional monitor your blood sugar may be needed if you have persistently low or high blood sugars. Your goal should be a fasting glucose of 95-115 and all other blood sugar should be under 180. If you have persistent blood sugars below 95 or greater than 200 please call your primary care provider so adjustments can be made in your insulin dose. You should follow up w/ case specialist to work on improving your diabetes control and to prevent repeat episodes of DKA. We will refer you to the case specialist. You should follow up closely with your primary care provider to discuss your treatment of your schizophrenia and your diabetes. Your primary care provider may want to refer you to a mental health specialist to work on your schizophrenia. You should have a follow up w/ Dr. Huston, the surgeon, who performed your EGD and diagnosed your Helicobacter pylori infection of your stomach. Please finish the antibiotics Amoxicillin and Clarithromycin which were prescribed for this infection. In addition you need to take your omeprazole twice a day and you need to take Pepto Bismol 4x per day for the next 2 weeks to help clear this infection. Please follow up with your primary care physician at [facility]. An appointment has already been made for you on June 23, 2022 at 1040 AM If you cannot make this appointment please call them to reschedule. Referrals: Xin Stern NP [Primary Care Provider] - Activity:: Activity as Tolerated Equipment/Supplies:: No Equipment Needed Diet:: Carb Counting Discharge Orders Discharge Orders: Discharge Order (Routine); Ordered 06/09/22 Ordered By: Jacky Galo Discharge Data Discharge Date/Time-TO BE ENTERED AT DEPARTURE: 06/09/22 14:43 Discharge Comment: Patient feeling better. Patient in taxi for home. Discharge Physician: Jacky Galo DS: Summary Time Spent with Patient providing and/or coordinating discharge services: Greater than 30 minutes Specific discharge activities: Interview/exam of patient; review of discharge instructions, completion of prescriptions/discharge instructions; discussion w/ nursing and CM; documentation of hospital visit Status at Discharge Functional status at discharge: independent ambulation Overall status at discharge: patient is back to baseline Mental Status: mental status grossly normal Speech and Movement: speech and movement normal Mood: congruent mood Affect: normal affect Exam Narrative Exam Narrative: Kareen is sitting up in her chair eating her breakfast she is alert and oriented person place and circumstance. She is having no hallucinations denies any acute complaints. She is desiring to return home. Blood sugars are stable. Psych Mental Status: mental status grossly normal Speech and Movement: speech and movement normal Mood: congruent mood Affect: normal affect DS: Data Vitals/I&O Vitals and I&O: Vital Signs Temperature 37.0 C 06/09/22 08:14 Temperature Source Temporal Artery Scan 06/09/22 08:14 Pulse 65 06/09/22 08:14 Pulse Rhythm Regular 06/09/22 08:21 Pulse 64 06/08/22 22:00 Respiratory Rate 20 06/09/22 08:14 Respiratory Effort 06/09/22 08:21 Respiratory Depth Normal 06/09/22 08:21 Respiratory Pattern Normal 06/09/22 08:21 Blood Pressure 116/78 06/09/22 08:14 Blood Pressure Mean 65 06/08/22 20:14 Blood Pressure Position Left Lateral 06/08/22 04:22 Pulse Oximetry 95 06/09/22 08:14 Oxygen Delivery Method Room Air 06/09/22 08:14 Oxygen Flow Rate 0 06/09/22 08:14 Pain Level 9 06/09/22 08:36 Comment 06/08/22 23:39 Intake & Output 06/08/22 06/08/22 06/09/22 11:59 23:59 11:59 Intake Total 3136.974 / 5416.974 2280 / 5416.974 720 / 720 Output Total 425 / 425 Balance 2711.974 / 4991.974 2280 / 4991.974 720 / 720 Weight 88.9 kg Intake: IV 3016.974 / 4116.974 1100 / 4116.974 Oral 120 / 1300 1180 / 1300 720 / 720 Output: Urine 425 / 425 Other: Urine Color Yellow Urine Appearance Clear Urine Odor None Comment HNV since admission Up to commode to void Stool Size Moderate Stool Characteristics Formed Brown Voiding Methods Bedside Commode Data Completed and Pending Labs on day of discharge: Labs from last 24 hours 06/09/22 06/09/22 06/08/22 08:01 08:01 22:00 WBC Pending RBC Pending Hgb Pending Hct Pending MCV Pending MCH Pending MCHC Pending RDW Pending Plt Count Pending MPV Pending Reticulocyte % (Auto) Immature Gran % Pending Neutrophils % Pending Lymphocytes % Pending Monocytes % Pending Eosinophils % Pending Basophils % Pending Absolute Neutrophils Pending Absolute Lymphocytes Pending Absolute Monocytes Pending Absolute Eosinophils Pending Absolute Basophils Pending Sodium Pending Potassium Pending Chloride Pending Carbon Dioxide Pending Anion Gap Pending BUN Pending Creatinine Pending Est GFR (CKD-EPI 2020) Pending Glucose Pending Calcium Pending Iron TIBC Transferrin % Sat Ferritin Lactate Dehydrogenase 281 H Urine Color Urine Clarity Urine pH Ur Specific [place] Urine Protein Urine Ketones Urine Blood Urine Nitrite Urine Bilirubin Urine Urobilinogen Ur Leukocyte Esterase Urine Glucose Add-On Test Request 06/08/22 06/08/22 06/08/22 17:18 17:18 11:15 WBC RBC Hgb 11.4 Hct 35.8 L MCV MCH MCHC RDW Plt Count MPV Reticulocyte % (Auto) Immature Gran % Neutrophils % Lymphocytes % Monocytes % Eosinophils % Basophils % Absolute Neutrophils Absolute Lymphocytes Absolute Monocytes Absolute Eosinophils Absolute Basophils Sodium 138 Potassium 4.9 D Chloride 105 Carbon Dioxide 28.5 Anion Gap 4.5 BUN 31 H Creatinine 1.9 H Est GFR (CKD-EPI 2020) 31.57 Glucose 129 H Calcium 8.2 L Iron TIBC Transferrin % Sat Ferritin Lactate Dehydrogenase Urine Color Yellow Urine Clarity Clear Urine pH 5.5 Ur Specific [place] 1.025 Urine Protein Negative Urine Ketones 40 H Urine Blood Negative Urine Nitrite Negative Urine Bilirubin Large H Urine Urobilinogen 0.2 Ur Leukocyte Esterase Negative Urine Glucose 500 H Add-On Test Request 06/08/22 06/08/22 06/08/22 06:20 06:20 06:20 WBC RBC Hgb Hct MCV MCH MCHC RDW Plt Count MPV Reticulocyte % (Auto) 1.4 Immature Gran % Neutrophils % Lymphocytes % Monocytes % Eosinophils % Basophils % Absolute Neutrophils Absolute Lymphocytes Absolute Monocytes Absolute Eosinophils Absolute Basophils Sodium Potassium Chloride Carbon Dioxide Anion Gap BUN Creatinine Est GFR (CKD-EPI 2020) Glucose Calcium Iron 30 L TIBC 94 L Transferrin % Sat 32 Ferritin 106 Lactate Dehydrogenase Urine Color Urine Clarity Urine pH Ur Specific [place] Urine Protein Urine Ketones Urine Blood Urine Nitrite Urine Bilirubin Urine Urobilinogen Ur Leukocyte Esterase Urine Glucose Add-On Test Request 06/08/22 06:20 WBC RBC Hgb Hct MCV MCH MCHC RDW Plt Count MPV Reticulocyte % (Auto) Immature Gran % Neutrophils % Lymphocytes % Monocytes % Eosinophils % Basophils % Absolute Neutrophils Absolute Lymphocytes Absolute Monocytes Absolute Eosinophils Absolute Basophils Sodium Potassium Chloride Carbon Dioxide Anion Gap BUN Creatinine Est GFR (CKD-EPI 2020) Glucose Calcium Iron TIBC Transferrin % Sat Ferritin Lactate Dehydrogenase Urine Color Urine Clarity Urine pH Ur Specific [place] Urine Protein Urine Ketones Urine Blood Urine Nitrite Urine Bilirubin Urine Urobilinogen Ur Leukocyte Esterase Urine Glucose Add-On Test Request TNP PFSH All Active Problems (Updated 06/10/22 @ 21:56 by Jacky Galo MD) Helicobacter pylori gastritis (Acute) Alcoholism (Chronic) Nausea (Acute) Chronic nausea-occasional use of generic Zofran. She knows to use this sparingly-aware of side effects potentially with methadone Substance abuse (Chronic) History of opiate abuse, more remotely benzodiazepine abuse, followed by [facility] in [place], on methadone Hyperlipidemia (Acute) Anxiety (Chronic) 2021-Drug contract with [employer], PMS queried, plan is only occasional exam lorazepam for panic attack, reviewed with [facility] Plan is a limit of 10/month of lorazepam Patient already has Narcan at home 01/31/2022 patient given 1 refill of 10 tabs by phone, she will need an office visit for any further refills Hypertension (Chronic) Abscess of finger (Acute) Distal radius fracture, right (Acute) Internal derangement of right knee (Acute 11/14/20) Type 2 diabetes mellitus with hypoglycemic insulin reaction (Acute) Pneumonia (Acute) Diabetic nephropathy (Chronic 02/01/15) Schizophrenia (Chronic) a. no evidence on this exam or her prior admission in 2009 Elevated serum creatinine (Acute 02/01/15) Medical History Alcohol abuse Alcohol dependence in remission Anxiety Cellulitis of left hand (02/01/15) a. secondary to cat bite vs. IVDU b. has 13 cats at home c. denies ongoing IVDU at this time Closed fracture of distal end of right fibula (10/04/16) Constipation COPD (chronic obstructive pulmonary disease) Current smoker (02/01/15) x 29 years Depressive disorder Diabetes mellitus, type II a. chronic noncompliance b. multiple episodes of admission for [facility] c. ? 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 Hyperlipemia Hyperlipidemia statin started Non compliance with medical treatment (02/01/15) Panic disorder PTSD (post-traumatic stress disorder) Schizophrenia Umbilical hernia, incarcerated Ventral hernia without obstruction or gangrene Social History Smoking/Tobacco Use Status: Current every day Tobacco Type: cigarettes Smoking risk assessment performed?: Yes Alcohol Intake: current Alcohol Intake frequency: 0-2 drinks per day Drug use: Current Sobriety Substance use type: does not use Details: drank twisted tea today Current gender identity: female Do you feel safe at home: Yes Do you feel safe in your relationship?: Yes Additional Social history: Ms. Higginbotham has a significant other in the form of a boyfriend. Her only child, a son, reportedly over the last 1 1/2 years. Continued tobacco use. 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 Intermitted EtOH use.
--- NOTE | 2022-06-09 10:31 | NUR.NOTE ---
consumer educator is paged to meet with patient.Nursing Note:
--- NOTE | 2022-06-09 10:36 | NUR.NOTE ---
RN is waiting for case management and nutrition educator to speak to patient before discharge.Nursing Note:
[2022-06-09] MEDS: Insulin Aspart 300 UNITS/3 ML PEN SC ×3 (10:50→12:35)
--- NOTE | 2022-06-09 11:02 | NUR.NOTE ---
Attempted to contact clinical systems educator multiple times to set up appointment for patient for within the next week or so, per MD. No answer from diabetic educator each time. Will continue to try. Nursing Note:
--- NOTE | 2022-06-09 12:02 | NUR.NOTE ---
Waiting on case managment to meet with patient.Nursing Note:
--- NOTE | 2022-06-09 12:36 | NUR.NOTE ---
solar installation manager meets with patient.Nursing Note:
--- NOTE | 2022-06-09 12:39 | NUR.NOTE ---
Patient's appetite is quite good.Nursing Note:
--- NOTE | 2022-06-09 12:50 | NUR.NOTE ---
Pick Pulling Machine Operator concludes her meeting with patient. Pick Pulling Machine Operator will contact clinical educator, speak with Dr Galo, and set patient up with outpatient services. Discharge will not be processed until patient meets with clinical educator.Nursing Note:
--- NOTE | 2022-06-09 13:58 | NUR.NOTE ---
IV taken out at [facility] Note:
--- NOTE | 2022-06-09 14:27 | NUR.NOTE ---
Discharge Documents are reviewed with patient. Personal belongings from safe returned to patient. Patient to take a taxi home since left the hospital.Nursing Note:
--- NOTE | 2022-06-09 14:29 | NUR.NOTE ---
Taxi is called to collect patient. Taxi should be here in 20 minutes.Nursing Note:
--- NOTE | 2022-06-09 15:47 | PDOC.CMDIS ---
- If Service Date Differs Date of service: 06/09/22 Time of Service: 15:48 LACE Index Scoring Tool - Questions: Length of Stay (in days): 2 Acuity (Admit via E.D.?): Yes Comorbidities: Diabetes w/o Complication, Chronic Pulmonary Disease E.D. Visits: 5 - Answers: Total Score: 12 Risk of Readmission: High Risk Care Management Discharge Reason for Hospitalization: DKA Discharge Plan: Josefina returned home today with new orders for HH RN to help manage her diabetes at home. KERVIN also sent referrals to [facility] and [employer] to assist her in the community. KERVIN reached out to the [facility] for [facility] to advocate for psychiatric assessment through telehealth/[employer] offered at their office. Josefina took a taxi home, although CM offered to coordinate RCT, she declined. She will follow up with her PCP and discharge plan of care. KERVIN talked to her grand daughter, Tammie, who stated that she will go to Josefina's house daily to help her with her medications, specifically her insulin. She was happy to be going home. Patient/Family Education Needs: Review discharge instructions and limitations, discussion of self care needs including 'ask me three'. Services Needed at Discharge: Home Health Care Services (HH RN)
== END 2022-06-09 14:43 | disposition home health service (06) | DRG 638 ==
LOC: ER 20:39 → ICU 22:52
PROVIDERS: Internal Medicine; Admitting Provider Family Medicine; Emergency Provider Emergency Medicine; PCP Nurse Practitioner Family; Visit Provider Family Medicine
DX: E11.10 Type 2 diabetes mellitus with ketoacidosis without coma (principal); F11.20 Opioid dependence, uncomplicated; N17.9 Acute kidney failure, unspecified; F20.81 Schizophreniform disorder; T38.3X6A Underdosing of insulin and oral hypoglycemic [antidiabetic] drugs, initial encounter; K29.70 Gastritis, unspecified, without bleeding; B96.81 Helicobacter pylori [H. pylori] as the cause of diseases classified elsewhere; Z79.4 Long term (current) use of insulin; F19.10 Other psychoactive substance abuse, uncomplicated; F20.9 Schizophrenia, unspecified; Z91.14 Patient's other noncompliance with medication regimen; R11.0 Nausea; E78.5 Hyperlipidemia, unspecified; I10 Essential (primary) hypertension; E11.21 Type 2 diabetes mellitus with diabetic nephropathy; F10.21 Alcohol dependence, in remission; F17.210 Nicotine dependence, cigarettes, uncomplicated; J44.9 Chronic obstructive pulmonary disease, unspecified; K59.00 Constipation, unspecified; F41.0 Panic disorder [episodic paroxysmal anxiety]; F43.10 Post-traumatic stress disorder, unspecified; F31.9 Bipolar disorder, unspecified
CPT/HCPCS: 36415; 76770; 80048; 80053; 80307; 82805; 82947; 83690; 87635; 93005; 96361; 96374; 99285; J1650; 71045; 80320; 81003; 81015; 82728; 83540; 83550; 83615; 83735; 84484; 85014; 85018; 85025; 85045; 93010; 99231; 99239; 99284; 99291; J2405; J3480

== ENCOUNTER 2022-06-14 11:15 | Inpatient (IN) | payer MEDICAID, SELFPAY ==
[2022-06-14] VITALS (38 sets, daily range): BP systolic 65–141; BP diastolic 34–124; PULSE 70–131; RESP 12–30; TEMP 36.2–37.9; O2SAT 86–100
--- NOTE | 2022-06-14 | DI.RAD_ITS ---
Exam(s) XR PORTABLE CHEST AP EXAM: XR PORTABLE CHEST AP CLINICAL HISTORY: sepsis. TECHNIQUE: 2D digital imaging was performed. COMPARISON: CR,XR XR PORTABLE CHEST AP from 06/07/2022 FINDINGS: Single AP portable view. Heart size is upper normal. The mediastinum is not widened. Platelike atelectasis in left lung base. No pulmonary edema. No no large pleural effusions. No pne umothorax. No fractures. IMPRESSION: Platelike atelectasis in left lung base. DATA REPOSITORY: RADIATION DOSE DELIVERED:
[2022-06-14 11:35] LABS: Source Nasal/Nares
[2022-06-14] MEDS: Ondansetron 4 MG/2 ML VIAL IVP ×2 (12:04→15:27)
[2022-06-14] MEDS: Normal Saline 1,000 ML 1000 ML IV ×3 (12:04→14:39)
[2022-06-14] MEDS: INSULIN REGULAR IN 0.9 % NACL 100 UNIT/100 ML BAG IV (12:06)
[2022-06-14 12:11] LABS: COVID-19 PCR Negative (Negative)
[2022-06-14 12:29] LABS: BE (Venous) -11 mmol/L (-2-3); HCO3 (Venous) 16 mmol/L (23-28); O2 Sat (Venous) 66 %; TCO2 (Venous) 15 mmol/L (24-29); pCO2 (Venous) 38 mmHg (41-51); pH (Venous) 7.25 (7.31-7.41); pO2 (Venous) 41 mmHg
[2022-06-14 12:32] LABS: Abs Immature Grans 0.03 10^3/uL (0.0-0.06); Absolute Basophil Count 0.02 10^3/uL (0.0-0.2); Absolute Eosinophil Count 0.01 10^3/uL (0.0-0.7); Absolute Lymphocyte Count 0.95 10^3/uL (1.2-3.4); Basophils % 0.3; Eosinophils % 0.1; HCT 44.4 % (36.0-46.0); HGB 13.3 g/dL (11.2-15.7); Immature Grans % 0.4; MCH 27.3 pg (27.0-33.0); MCV 91 fL (80-95); MPV 10.8 fL (8.0-11.0); Monocytes % 3.8; Neutrophils % 83.4; Platelet Count 269 10^3/uL (130-400); RBC 4.87 10^6/uL (3.93-5.22); RDW 15.8 % (11.7-14.6); WBC 7.91 10^3/uL (4.4-10.8)
[2022-06-14 12:52] LABS: ALT 70 U/L (14-59); AST 26 U/L (15-37); Albumin 3.4 g/dL (3.4-5.0); Alkaline Phosphatase 132 U/L (46-116); Anion Gap 29.7 mmol/L (3-11); BUN 33 mg/dL (7-18); CO2 17.3 mmol/L (21.0-32.0); CREATININE 2.1 mg/dL (0.55-1.02); Calcium 10.2 mg/dL (8.5-10.1); Chloride 86 mmol/L (98-107); Estimated GFR 27.83 (mL/min/1.73m2); Magnesium 2.5 mg/dL (1.8-2.4); Potassium 4.9 mmol/L (3.5-5.1); Sodium 133 mmol/L (136-145); Total Protein 7.6 g/dL (6.4-8.2)
[2022-06-14 13:02] LABS: ETHANOL BLOOD < 3.0 mg/dL (<10)
[2022-06-14 13:03] LABS: Troponin I 84 ng/L (<or=60)
[2022-06-14 13:31] LABS: Glucose 952 mg/dL (74-106)
--- NOTE | 2022-06-14 13:32 | NUR.NOTE ---
Took blood glucose per RN request. Glucometer said, Out of range HIGH RN notified Nursing Note:
--- NOTE | 2022-06-14 14:41 | ED.GENADUL_ITS ---
Discharge Plan Disposition Patient Disposition: [facility] INPATIENT Condition: Critical Discharge Details Clinical Impression: DKA (diabetic ketoacidosis) Admit Date/Time: 06/14/22 15:19 Admit Provider: Makayla Santos Attending Provider: Makayla Santos Primary Care Provider: Xin Stern ED Provider: Dwain Claudio Discharge Data Discharge Date/Time-TO BE ENTERED AT DEPARTURE: 06/14/22 17:42 Medical Decision Making Patient presenting to the emergency department via EMS for chief complaint of altered mental status. Patient is a poorly controlled diabetic and significant other reported to EMS that patient has not been taking her medications over the past couple days. Patient is alert and oriented to person and place but has generalized confusion. Patient is slightly tachypneic and tachycardic exam is otherwise unremarkable. Suspect DKA given history. EMS reported blood sugar reading of high on the machine. We will draw labs, start fluids, and start insulin drip. CBC is overall nondiagnostic, VBG does show that patient is acidotic potassium is appropriate at 4.9 but patient otherwise has elevated anion gap, BUN and creatinine are slightly worse than normal at 27 for GFR patient does have slightly elevated troponin at 84 which I feel is more demand. Patient is not intoxicated. Patient is negative for COVID. Lab did report a corrected glucose of over 900. Will adjust insulin drip as appropriate and give more fluids. We will plan on patient to be admitted to ICU for DKA. We will repeat troponin. Repeat glucose was 820 labs for repeat show potassium at 3.5, and otherwise relatively unchanged for remainder of labs. Repeat troponin is 79 which again I feel is more indicative of demand ischemia than acute ACS. Called and spoke with hospitalist who agreed to admit patient for ICU level treatment of DKA. Lab Data Lab results reviewed: Yes I reviewed the patient's lab results. HPI General Mode of arrival: EMS . Date/Time Provider Initiated Documentation: 06/14/22 11:21 . Limitations to Documentation: altered mental status . Information obtained by: patient, EMS, RN notes reviewed and old records reviewed . History of Present Illness 52 year old F presents to the emergency department with the chief complaint of Altered mental status, high sugar, described as severe and similar to prior episodes, Quality is described as other (Denies pain), Patient started experiencing this unknown No relieving factors improve symptom(s), No exacerbating factors reported . Patient notes nausea/vomiting. Patient did receive the following treatments prior to arrival, none Related Data Home Medications Medication Instructions Recorded Confirmed epinephrine 0.3 mg/0.3 mL 0.3 mg IM ONCE #1 pen 04/01/13 06/14/22 injection, auto-injector (EpiPen 2-Tejinder) blood-glucose meter (FreeStyle #1 ea 12/09/19 06/02/22 Lite Meter kit) clotrimazole 1 % topical cream 1 applic topical BID #28 grams 09/20/20 06/14/22 mupirocin 2 % topical ointment 1 applic topical TID PRN skin 09/20/20 06/14/22 infection #22 grams methadone 10 mg/5 mL oral solution 22 mg PO DAILY 11/15/20 06/14/22 albuterol sulfate 2.5 mg/0.5 mL 5 mg inhalation Q6H PRN shortness 12/31/20 06/14/22 solution for nebulization of breath or wheezing #30 ea cholecalciferol (vitamin D3) 25 25 mcg PO DAILY #90 caps 08/29/21 06/14/22 mcg (1,000 unit) capsule docusate sodium 100 mg capsule 100 mg PO BID #180 caps 10/25/21 06/14/22 (Colace) miconazole nitrate 2 % topical 1 applic topical BID PRN vaginitis 10/25/21 06/14/22 cream #28 grams nicotine 14 mg/24 hr daily 1 patch transdermal DAILY #28 ea 10/25/21 06/14/22 transdermal patch lancets 28 gauge (FreeStyle #400 ea 03/03/22 06/02/22 Lancets) terbinafine HCl 1 % topical cream 1 applic topical BID #30 grams 03/03/22 06/14/22 (Lamisil AT) blood sugar diagnostic (Blood #400 strips 03/15/22 06/02/22 Glucose Test strips) pen needle, diabetic 31 gauge x #200 ea 03/15/22 06/02/22 1/3 atorvastatin 20 mg tablet 20 mg PO DAILY #90 tabs 03/28/22 06/14/22 ondansetron HCl 4 mg tablet 2 mg PO DAILY PRN nausea and 05/28/22 06/14/22 vomiting aripiprazole 2 mg tablet (Abilify) 2 mg PO DAILY #30 tabs 05/31/22 06/14/22 folic acid 1 mg tablet 1 mg PO QAM #30 tabs 05/31/22 06/14/22 gabapentin 100 mg capsule 100 mg PO TID #90 caps 05/31/22 06/14/22 multivitamin (Multiple Vitamins 1 tab PO QAM #30 tabs 05/31/22 06/14/22 tablet) naloxone 4 mg/actuation nasal 4 mg intranasal Q2-3M PRN #2 ea 05/31/22 06/14/22 spray (Narcan) sucralfate 1 gram tablet 1 g PO AC & HS #120 tabs 05/31/22 06/14/22 thiamine mononitrate (vit B1) 100 100 mg PO QAM #30 tabs 05/31/22 06/14/22 mg tablet (Vitamin B-1 (mononitrate)) Novolog Flexpen U-100 Insulin 100 See Rx Instructions .Route 06/01/22 06/14/22 unit/mL (3 mL) subcutaneous .COMPLEX #15 mL (insulin aspart U-100) albuterol sulfate 90 mcg/actuation 2 puff inhalation QID PRN 06/01/22 06/14/22 aerosol inhaler shortness of breath or wheezing #3 ea triamcinolone acetonide 0.1 % See Rx Instructions .Route 06/01/22 06/14/22 topical ointment .COMPLEX #80 grams lorazepam 1 mg tablet 1 mg PO DAILY PRN anxiety #10 tabs 06/02/22 06/14/22 sennosides 8.6 mg capsule (senna) 8.6 mg PO BID PRN constipation #60 06/02/22 06/14/22 caps amoxicillin 500 mg capsule 1,000 mg PO BID 12 days #48 caps 06/05/22 06/14/22 blood sugar diagnostic (OneTouch #100 ea 06/05/22 Ultra Test strips) blood-glucose meter (OneTouch #1 ea 06/05/22 Ultra2 Meter) clarithromycin 500 mg tablet 500 mg PO BID 12 days #24 tabs 06/05/22 06/14/22 lancets (Lancets,Ultra Thin) #100 ea 06/05/22 lorazepam 1 mg tablet mg 06/05/22 needle (disp) 30 gauge 30 gauge x #100 ea 06/05/2209/25 (BD Specialty Use [place]) omeprazole 40 mg capsule,delayed 40 mg PO BID 12 days #24 caps 06/05/22 06/14/22 release bismuth subsalicylate 262 mg/15 mL 524 mg (30 mL) PO QID #1,200 mL 06/09/22 06/14/22 oral suspension (Stomach Relief) insulin glargine 100 unit/mL (3 20 unit (0.2 mL) subcut QAM #30 mL 06/09/22 06/14/22 mL) subcutaneous pen Previous Rx's Medication Instructions Recorded blood-glucose meter (FreeStyle #1 ea 12/09/19 Lite Meter kit) clotrimazole 1 % topical cream 1 applic topical BID #28 grams 09/20/20 mupirocin 2 % topical ointment 1 applic topical TID PRN skin 09/20/20 infection #22 grams albuterol sulfate 2.5 mg/0.5 mL 5 mg inhalation Q6H PRN shortness 12/31/20 solution for nebulization of breath or wheezing #30 ea cholecalciferol (vitamin D3) 25 25 mcg PO DAILY #90 caps 08/29/21 mcg (1,000 unit) capsule docusate sodium 100 mg capsule 100 mg PO BID #180 caps 10/25/21 (Colace) miconazole nitrate 2 % topical 1 applic topical BID PRN vaginitis 10/25/21 cream #28 grams nicotine 14 mg/24 hr daily 1 patch transdermal DAILY #28 ea 10/25/21 transdermal patch lancets 28 gauge (FreeStyle #400 ea 03/03/22 Lancets) terbinafine HCl 1 % topical cream 1 applic topical BID #30 grams 03/03/22 (Lamisil AT) blood sugar diagnostic (Blood #400 strips 03/15/22 Glucose Test strips) pen needle, diabetic 31 gauge x #200 ea 03/15/22 1 atorvastatin 20 mg tablet 20 mg PO DAILY #90 tabs 03/28/22 aripiprazole 2 mg tablet (Abilify) 2 mg PO DAILY #30 tabs 05/31/22 folic acid 1 mg tablet 1 mg PO QAM #30 tabs 05/31/22 gabapentin 100 mg capsule 100 mg PO TID #90 caps 05/31/22 multivitamin (Multiple Vitamins 1 tab PO QAM #30 tabs 05/31/22 tablet) naloxone 4 mg/actuation nasal 4 mg intranasal Q2-3M PRN #2 ea 05/31/22 spray (Narcan) sucralfate 1 gram tablet 1 g PO AC & HS #120 tabs 05/31/22 thiamine mononitrate (vit B1) 100 100 mg PO QAM #30 tabs 05/31/22 mg tablet (Vitamin B-1 (mononitrate)) Novolog Flexpen U-100 Insulin 100 See Rx Instructions .Route 06/01/22 unit/mL (3 mL) subcutaneous .COMPLEX #15 mL (insulin aspart U-100) albuterol sulfate 90 mcg/actuation 2 puff inhalation QID PRN 06/01/22 aerosol inhaler shortness of breath or wheezing #3 ea triamcinolone acetonide 0.1 % See Rx Instructions .Route 06/01/22 topical ointment .COMPLEX #80 grams lorazepam 1 mg tablet 1 mg PO DAILY PRN anxiety #10 tabs 06/02/22 sennosides 8.6 mg capsule (senna) 8.6 mg PO BID PRN constipation #60 06/02/22 caps amoxicillin 500 mg capsule 1,000 mg PO BID 12 days #48 caps 06/05/22 blood sugar diagnostic (OneTouch #100 ea 06/05/22 Ultra Test strips) blood-glucose meter (OneTouch #1 ea 06/05/22 Ultra2 Meter) clarithromycin 500 mg tablet 500 mg PO BID 12 days #24 tabs 06/05/22 lancets (Lancets,Ultra Thin) #100 ea 06/05/22 needle (disp) 30 gauge 30 gauge x #100 ea 06/05/22 1/2 (BD Specialty Use [place]) omeprazole 40 mg capsule,delayed 40 mg PO BID 12 days #24 caps 06/05/22 release bismuth subsalicylate 262 mg/15 mL 524 mg (30 mL) PO QID #1,200 mL 06/09/22 oral suspension (Stomach Relief) insulin glargine 100 unit/mL (3 20 unit (0.2 mL) subcut QAM #30 mL 06/09/22 mL) subcutaneous pen Allergies Allergy/AdvReac Type Severity Reaction Status Date / Time venom-honey bee Allergy Intermediate Verified 06/14/22 11:22 [bee venom (honey bee)] Sulfa (Sulfonamide Allergy Rash & Verified 06/14/22 11:22 Antibiotics) Shortness of Breath hydroxyzine HCl AdvReac Intermediate nausea/vomiting, Verified 06/14/22 11:22 [From Vistaril] palpitations General Stated Complaint: Diabetes LAURIE: 2 Review of Systems Unobtainable due to mental status Constitutional Constitutional: Reports malaise and Reports poor appetite Gastrointestinal Gastrointestinal: Reports nausea and Reports vomiting Neurologic Neurologic: Reports behavioral changes and Denies seizure-like activity Psychiatric Psychiatric: Reports behavioral changes [facility] All Active Problems (Updated 06/14/22 @ 19:54 by Makayla Santos MD) Hypotension (Acute) Discharge planning issues (Acute) DVT prophylaxis (Acute) Fever (Acute) DKA (diabetic ketoacidosis) (Acute) Helicobacter pylori gastritis (Acute) Alcoholism (Chronic) Nausea (Acute) Chronic nausea-occasional use of generic Zofran. She knows to use this sparingly-aware of side effects potentially with methadone Substance abuse (Chronic) History of opiate abuse, more remotely benzodiazepine abuse, followed by [facility] in [place], on methadone Hyperlipidemia (Acute) Anxiety (Chronic) 2021-Drug contract with [facility], PMS queried, plan is only occasional exam lorazepam for panic attack, reviewed with [facility] Plan is a limit of 10/month of lorazepam Patient already has Narcan at home 01/31/2022 patient given 1 refill of 10 tabs by phone, she will need an office visit for any further refills Hypertension (Chronic) Abscess of finger (Acute) Distal radius fracture, right (Acute) Internal derangement of right knee (Acute 11/14/20) Type 2 diabetes mellitus with hypoglycemic insulin reaction (Acute) Pneumonia (Acute) Diabetic nephropathy (Chronic 02/01/15) Schizophrenia (Chronic) a. no evidence on this exam or her prior admission in 2009 Elevated serum creatinine (Acute 02/01/15) Medical History Alcohol abuse Alcohol dependence in remission Anxiety Cellulitis of left hand (02/01/15) a. secondary to cat bite vs. IVDU b. has 13 cats at home c. denies ongoing IVDU at this time Closed fracture of distal end of right fibula (10/04/16) Constipation COPD (chronic obstructive pulmonary disease) Current smoker (02/01/15) x 29 years Depressive disorder Diabetes mellitus, type II a. chronic noncompliance b. multiple episodes of admission for [facility] c. ? 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 Hyperlipemia Hyperlipidemia statin started Non compliance with medical treatment (02/01/15) Panic disorder PTSD (post-traumatic stress disorder) Schizophrenia Umbilical hernia, incarcerated Ventral hernia without obstruction or gangrene Social History Smoking/Tobacco Use Status: Unknown Smoking risk assessment performed?: Yes Alcohol Intake: current Alcohol Intake frequency: 0-2 drinks per day Drug use: Current Sobriety Substance use type: does not use Details: drank twisted tea today Current gender identity: female Do you feel safe at home: Yes Do you feel safe in your relationship?: Yes Additional Social history: Ms. Higginbotham has a significant other in the form of a boyfriend. Her only child, a son, reportedly over the last 1 1/2 years. Continued tobacco use. 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 Intermitted EtOH use. Exam Const General: cooperative and ill appearing chronically Nutritional Appearance: overweight Orientation: alert, awake and confused HENMT Head: normocephalic and atraumatic Ears: hearing grossly normal bilaterally General nose exam: external nose normal Mouth: oral mucosa abnormal (dry) Eyes General: appearance normal, both eyes and all related structures Resp Effort & Inspection: normal respiratory effort, able to speak in complete sentences and tachypneic Auscultation: clear to auscultation bilaterally Cardio Rate: tachycardic Rhythm: regular rhythm Heart Sounds: S1 normal and S2 normal Pulses: normal peripheral pulses GI Palpation: soft, no hepatosplenomegaly, not firm, no guarding, no masses, no pulsatile masses, not rigid, no splenomegaly and tender Auscultation: normal bowel sounds Back/Spine/Pelvis Back: no CVA tenderness Skin General skin exam: no rashes or lesions noted Neuro General: patient alert, patient awake, oriented Patient Orientation: Person, Place and Confused, gait normal and moves all extremities Course Vital Signs Vital signs: Vital Signs Temperature 36.2 C L 06/14/22 11:25 Pulse 92 H 06/14/22 11:25 Blood Pressure 86/50 L 06/14/22 11:25 Pulse Oximetry 96 06/14/22 11:25 Temperature 36.2 C L 06/14/22 11:25 Pulse 90 06/14/22 14:12 Respiratory Rate 19 06/14/22 13:46 Respiratory Effort 06/14/22 11:22 Blood Pressure 84/44 L 06/14/22 14:12 Pulse Oximetry 97 06/14/22 13:46 Oxygen Delivery Method Room Air 06/14/22 13:46 Oxygen Flow Rate 0 06/14/22 13:46 Lab/Test Results Lab/Test Results: Laboratory Tests Range/Units 06/14/22 06/14/22 06/14/22 11:31 12:22 12:22 WBC (4.4-10.8) 10^3/uL 7.91 RBC (3.93-5.22) 10^6/uL 4.87 Hgb (11.2-15.7) g/dL 13.3 Hct (36.0-46.0) % 44.4 MCV (80-95) fL 91 MCH (27.0-33.0) pg 27.3 MCHC (32.0-36.0) % 30.0 L RDW (11.7-14.6) % 15.8 H Plt Count (130-400) 10^3/uL 269 MPV (8.0-11.0) fL 10.8 Immature Gran % 0.4 Neutrophils % 83.4 Lymphocytes % 12.0 Monocytes % 3.8 Eosinophils % 0.1 Basophils % 0.3 Nucleated RBC % (0.0-0.3) % 0.0 Absolute Neutrophils (1.2-6.7) 10^3/uL 6.60 Absolute Lymphocytes (1.2-3.4) 10^3/uL 0.95 L Absolute Monocytes (0.1-0.8) 10^3/uL 0.30 Absolute Eosinophils (0.0-0.7) 10^3/uL 0.01 Absolute Basophils (0.0-0.2) 10^3/uL 0.02 VBG pH (7.31-7.41) VBG pCO2 (41-51) mmHg VBG pO2 mmHg VBG HCO3 (23-28) mmol/L VBG Total CO2 (24-29) mmol/L VBG O2 Saturation % VBG Base Excess (-2-3) mmol/L Sodium (136-145) mmol/L 133 L Potassium (3.5-5.1) mmol/L 4.9 Chloride (98-107) mmol/L 86 L Carbon Dioxide (21.0-32.0) mmol/L 17.3 L Anion Gap (3-11) mmol/L 29.7 H BUN (7-18) mg/dL 33 H Creatinine (0.55-1.02) mg/dL 2.1 H Est GFR (CKD-EPI 2020) (mL/min/1.73m2) 27.83 Glucose (74-106) mg/dL 952 H* Calcium (8.5-10.1) mg/dL 10.2 H Magnesium (1.8-2.4) mg/dL 2.5 H Total Bilirubin (0.2-1.0) mg/dL 1.0 AST (15-37) U/L 26 ALT (14-59) U/L 70 H Alkaline Phosphatase (46-116) U/L 132 H Troponin I (<or=60) ng/L 84 H* Total Protein (6.4-8.2) g/dL 7.6 Albumin (3.4-5.0) g/dL 3.4 Ethyl Alcohol (<10) mg/dL < 3.0 COVID-19 Source Nasal/Nares SARS-CoV-2 (PCR) (Negative) Negative Range/Units 06/14/22 06/14/22 12:22 12:22 WBC (4.4-10.8) 10^3/uL RBC (3.93-5.22) 10^6/uL Hgb (11.2-15.7) g/dL Hct (36.0-46.0) % MCV (80-95) fL MCH (27.0-33.0) pg MCHC (32.0-36.0) % RDW (11.7-14.6) % Plt Count (130-400) 10^3/uL MPV (8.0-11.0) fL Immature Gran % Neutrophils % Lymphocytes % Monocytes % Eosinophils % Basophils % Nucleated RBC % (0.0-0.3) % Absolute Neutrophils (1.2-6.7) 10^3/uL Absolute Lymphocytes (1.2-3.4) 10^3/uL Absolute Monocytes (0.1-0.8) 10^3/uL Absolute Eosinophils (0.0-0.7) 10^3/uL Absolute Basophils (0.0-0.2) 10^3/uL VBG pH (7.31-7.41) 7.25 L VBG pCO2 (41-51) mmHg 38 L VBG pO2 mmHg 41 VBG HCO3 (23-28) mmol/L 16 L VBG Total CO2 (24-29) mmol/L 15 L VBG O2 Saturation % 66 VBG Base Excess (-2-3) mmol/L -11 L Sodium (136-145) mmol/L Potassium (3.5-5.1) mmol/L Chloride (98-107) mmol/L Carbon Dioxide (21.0-32.0) mmol/L Anion Gap (3-11) mmol/L BUN (7-18) mg/dL Creatinine (0.55-1.02) mg/dL Est GFR (CKD-EPI 2020) (mL/min/1.73m2) Glucose (74-106) mg/dL Calcium (8.5-10.1) mg/dL Magnesium (1.8-2.4) mg/dL Total Bilirubin (0.2-1.0) mg/dL AST (15-37) U/L ALT (14-59) U/L Alkaline Phosphatase (46-116) U/L Troponin I (<or=60) ng/L Total Protein (6.4-8.2) g/dL Albumin (3.4-5.0) g/dL Ethyl Alcohol (<10) mg/dL Cancelled COVID-19 Source SARS-CoV-2 (PCR) (Negative) Critical Care Time Critical Care Time Total Critical Care Time: 45 Attestation: Due to DKA with high probability of imminent or life threatening deterioration in the patient?s condition without intervention and treatment. Time spent documenting, establishing multiple points of IV access, reviewing labs and radiographs, monitoring titration/ Vital signs, and speaking with hospitalist for ICU admission
[2022-06-14 14:45] LABS: ALT 67 U/L (14-59); AST 23 U/L (15-37); Albumin 3.1 g/dL (3.4-5.0); Alkaline Phosphatase 119 U/L (46-116); Anion Gap 30.6 mmol/L (3-11); BUN 36 mg/dL (7-18); Bilirubin, Total 0.9 mg/dL (0.2-1.0); CO2 15.4 mmol/L (21.0-32.0); CREATININE 2.5 mg/dL (0.55-1.02); Calcium 9.5 mg/dL (8.5-10.1); Chloride 92 mmol/L (98-107); Estimated GFR 22.57 (mL/min/1.73m2); Potassium 3.5 mmol/L (3.5-5.1); Sodium 138 mmol/L (136-145); Total Protein 7.1 g/dL (6.4-8.2)
[2022-06-14 14:58] LABS: Glucose 820 mg/dL (74-106)
[2022-06-14 15:06] LABS: Troponin I 79 ng/L (<or=60)
[2022-06-14] MEDS: POTASSIUM CHLORIDE 20 MEQ/100 ML BAG 50 MEQ IVPB (16:03)
--- NOTE | 2022-06-14 18:23 | HPE_ITS ---
Date of service: 06/14/22 Time of Service: 18:23 Assessment and Plan Assessment and plan (1) DKA (diabetic ketoacidosis): Status: Acute Assessment and plan: Treat with aggressive IVF, Insulin gtt, serial chemistries, VBGs. Look for underlying cause - the patient does have a borderline fever. Will await UA. CXR negative. COVID-19 PCR negative. (2) Hypotension: Status: Acute Assessment and plan: In setting of dehydration/DKA but also possibly sepsis given borderline temp. Check UA. blood cultures. Does have a h/o drug use. Start empiric vancomycin/zosyn given h/o recent hospitalizations. Aggressive IVF and, if needed, norepinephrine have been ordered. (3) Fever: Status: Acute Assessment and plan: As above (4) Helicobacter pylori gastritis: Status: Acute Assessment and plan: I am not sure if the patient was compliant with oral abx. Will attempt to find out from the . Perhaps could use a restart of the whole regimen. (5) Alcoholism: Status: Chronic Assessment and plan: Again, unclear how recently the patient last drank. No evidence of w/d at this time. Will give thiamine. Tomorrow when the patient's mental status has improved would attempt to clarify if she is still drinking and if we should be monitoring for alcohol withdrawal. (6) Substance abuse: Status: Chronic Assessment and plan: Patient is a client of [facility] on methadone. We will verify when her last dose was. (7) Schizophrenia: Status: Chronic Assessment and plan: I suspect that this is a major contributor to patient's noncompliance with medication and that admissions for DKA will keep recurring unless her psychiatric issues are properly addressed. Will discuss possibility of psychiatric placement with care management. The patient's has previously verbalized to us that the patient believes that insulin is poison and has other delusional ideas about her medications. Qualifiers: Schizophrenia type: schizophreniform disorder Qualified Code(s): F20.81 - Schizophreniform disorder (8) DVT prophylaxis: Status: Acute Assessment and plan: SCDS. Hold chemical DVT ppx given recent GI bleeding (9) Discharge planning issues: Status: Acute Assessment and plan: Full code Admit to ICU. Total Critical Care Time 60 minutes. History of Present Illness History of Present Illness Chief Complaint: AMS Narrative: Ms Higginbotham is a 52 year old female with PMHx of IDDM with h/o DKA, noncompliant with insulin, who has had a h/o recent GI bleeding in setting of H. pylori gastritis, known anxiety and schizophrenia with delusional thinking documented on prior admissions who was brought to [facility] ED today with altered mental status, was found to be hyperglycemic with blood sugar of 952 by chemistry and in DKA with pH of 7.25 and an anion gap of 30. She was also found to be hypotensive with BPs of as low as 65/38. She was written for IVF and an insulin drip. When she arrived to the ICU, she was noted to have a low grade temperature of 37.9, was arousable, but not able to provide history on my exam. Her glucometer reading was high. Her bloodwork could not be collected peripherally and a midline had to be placed, with results currently pending. She was restarted on insulin drip empirically based on her last known chemistries. Hospitalist admission to the ICU for management of DKA was requested. Review of Systems All systems reviewed & are unremarkable except as noted in HPI and below PFSH All Active Problems (Updated 06/14/22 @ 19:54 by Makayla Santos MD) Hypotension (Acute) Discharge planning issues (Acute) DVT prophylaxis (Acute) Fever (Acute) DKA (diabetic ketoacidosis) (Acute) Helicobacter pylori gastritis (Acute) Alcoholism (Chronic) Nausea (Acute) Chronic nausea-occasional use of generic Zofran. She knows to use this sparingly-aware of side effects potentially with methadone Substance abuse (Chronic) History of opiate abuse, more remotely benzodiazepine abuse, followed by [facility] in [place], on methadone Hyperlipidemia (Acute) Anxiety (Chronic) 2021-Drug contract with [employer], PMS queried, plan is only occasional exam lorazepam for panic attack, reviewed with [facility] clinic Plan is a limit of 10/month of lorazepam Patient already has Narcan at home 01/31/2022 patient given 1 refill of 10 tabs by phone, she will need an office visit for any further refills Hypertension (Chronic) Abscess of finger (Acute) Distal radius fracture, right (Acute) Internal derangement of right knee (Acute 11/14/20) Type 2 diabetes mellitus with hypoglycemic insulin reaction (Acute) Pneumonia (Acute) Diabetic nephropathy (Chronic 02/01/15) Schizophrenia (Chronic) a. no evidence on this exam or her prior admission in 2009 Elevated serum creatinine (Acute 02/01/15) Medical History Alcohol abuse Alcohol dependence in remission Anxiety Cellulitis of left hand (02/01/15) a. secondary to cat bite vs. IVDU b. has 13 cats at home c. denies ongoing IVDU at this time Closed fracture of distal end of right fibula (10/04/16) Constipation COPD (chronic obstructive pulmonary disease) Current smoker (02/01/15) x 29 years Depressive disorder Diabetes mellitus, type II a. chronic noncompliance b. multiple episodes of admission for [facility] c. ? 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 Hyperlipemia Hyperlipidemia statin started Non compliance with medical treatment (02/01/15) Panic disorder PTSD (post-traumatic stress disorder) Schizophrenia Umbilical hernia, incarcerated Ventral hernia without obstruction or gangrene Social History Smoking/Tobacco Use Status: Unknown Smoking risk assessment performed?: Yes Alcohol Intake: current Alcohol Intake frequency: 0-2 drinks per day Drug use: Current Sobriety Substance use type: does not use Details: drank twisted tea today Current gender identity: female Do you feel safe at home: Yes Do you feel safe in your relationship?: Yes Additional Social history: Ms. Higginbotham has a significant other in the form of a boyfriend. Her only child, a son, reportedly over the last 1 1/2 years. Continued tobacco use. 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 Intermitted EtOH use. Meds Allergies and Home Medications Allergies Allergy/AdvReac Type Severity Reaction Status Date / Time venom-honey bee Allergy Intermediate Verified 06/14/22 11:22 [bee venom (honey bee)] Sulfa (Sulfonamide Allergy Rash & Verified 06/14/22 11:22 Antibiotics) Shortness of Breath hydroxyzine HCl AdvReac Intermediate nausea/vomiting, Verified 06/14/22 11:22 [From Vistaril] palpitations Home Medications Medication Instructions Recorded Confirmed Type epinephrine 0.3 mg/0.3 mL 0.3 mg IM ONCE #1 pen 04/01/13 06/14/22 History injection, auto-injector (EpiPen 2-Tejinder) blood-glucose meter (FreeStyle #1 ea 12/09/19 06/02/22 Rx Lite Meter kit) clotrimazole 1 % topical cream 1 applic topical BID #28 grams 09/20/20 06/14/22 Rx mupirocin 2 % topical ointment 1 applic topical TID PRN skin 09/20/20 06/14/22 Rx infection #22 grams methadone 10 mg/5 mL oral solution 22 mg PO DAILY 11/15/20 06/14/22 History albuterol sulfate 2.5 mg/0.5 mL 5 mg inhalation Q6H PRN shortness 12/31/20 06/14/22 Rx solution for nebulization of breath or wheezing #30 ea cholecalciferol (vitamin D3) 25 25 mcg PO DAILY #90 caps 08/29/21 06/14/22 Rx mcg (1,000 unit) capsule docusate sodium 100 mg capsule 100 mg PO BID #180 caps 10/25/21 06/14/22 Rx (Colace) miconazole nitrate 2 % topical 1 applic topical BID PRN vaginitis 10/25/21 06/14/22 Rx cream #28 grams nicotine 14 mg/24 hr daily 1 patch transdermal DAILY #28 ea 10/25/21 06/14/22 Rx transdermal patch lancets 28 gauge (FreeStyle #400 ea 03/03/22 06/02/22 Rx Lancets) terbinafine HCl 1 % topical cream 1 applic topical BID #30 grams 03/03/22 06/14/22 Rx (Lamisil AT) blood sugar diagnostic (Blood #400 strips 03/15/22 06/02/22 Rx Glucose Test strips) pen needle, diabetic 31 gauge x #200 ea 03/15/22 06/02/22 Rx 1/3 atorvastatin 20 mg tablet 20 mg PO DAILY #90 tabs 03/28/22 06/14/22 Rx ondansetron HCl 4 mg tablet 2 mg PO DAILY PRN nausea and 05/28/22 06/14/22 History vomiting aripiprazole 2 mg tablet (Abilify) 2 mg PO DAILY #30 tabs 05/31/22 06/14/22 Rx folic acid 1 mg tablet 1 mg PO QAM #30 tabs 05/31/22 06/14/22 Rx gabapentin 100 mg capsule 100 mg PO TID #90 caps 05/31/22 06/14/22 Rx multivitamin (Multiple Vitamins 1 tab PO QAM #30 tabs 05/31/22 06/14/22 Rx tablet) naloxone 4 mg/actuation nasal 4 mg intranasal Q2-3M PRN #2 ea 05/31/22 06/14/22 Rx spray (Narcan) sucralfate 1 gram tablet 1 g PO AC & HS #120 tabs 05/31/22 06/14/22 Rx thiamine mononitrate (vit B1) 100 100 mg PO QAM #30 tabs 05/31/22 06/14/22 Rx mg tablet (Vitamin B-1 (mononitrate)) Novolog Flexpen U-100 Insulin 100 See Rx Instructions .Route 06/01/22 06/14/22 Rx unit/mL (3 mL) subcutaneous .COMPLEX #15 mL (insulin aspart U-100) albuterol sulfate 90 mcg/actuation 2 puff inhalation QID PRN 06/01/22 06/14/22 Rx aerosol inhaler shortness of breath or wheezing #3 ea triamcinolone acetonide 0.1 % See Rx Instructions .Route 06/01/22 06/14/22 Rx topical ointment .COMPLEX #80 grams lorazepam 1 mg tablet 1 mg PO DAILY PRN anxiety #10 tabs 06/02/22 06/14/22 Rx sennosides 8.6 mg capsule (senna) 8.6 mg PO BID PRN constipation #60 06/02/22 06/14/22 Rx caps amoxicillin 500 mg capsule 1,000 mg PO BID 12 days #48 caps 06/05/22 06/14/22 Rx blood sugar diagnostic (OneTouch #100 ea 06/05/22 Rx Ultra Test strips) blood-glucose meter (OneTouch #1 ea 06/05/22 Rx Ultra2 Meter) clarithromycin 500 mg tablet 500 mg PO BID 12 days #24 tabs 06/05/22 06/14/22 Rx lancets (Lancets,Ultra Thin) #100 ea 06/05/22 Rx lorazepam 1 mg tablet mg 06/05/22 History needle (disp) 30 gauge 30 gauge x #100 ea 06/05/22 Rx 1/2 (BD Specialty Use [place]) omeprazole 40 mg capsule,delayed 40 mg PO BID 12 days #24 caps 06/05/22 06/14/22 Rx release bismuth subsalicylate 262 mg/15 mL 524 mg (30 mL) PO QID #1,200 mL 06/09/22 06/14/22 Rx oral suspension (Stomach Relief) insulin glargine 100 unit/mL (3 20 unit (0.2 mL) subcut QAM #30 mL 06/09/22 06/14/22 Rx mL) subcutaneous pen Exam Narrative Exam Narrative: General: Somnolent female who is arousable but does not answer coherently; Neurological: A&Ox1, no obvious focal deficits, lethargic Psychiatric: Difficult to evaluate given mental status Skin: Visible skin dry, intact HEENT: Atraumatic, normocephalic, EOMI, dry MM, clear oropharynx, no submandibular or cervical lymphadenopathy, no goiter or JVD Cardiovascular: RRR, no m/r/g Lungs: CTAB Gastrointestinal: soft, tender in epigastrium, nondistended Genitourinary: deferred Extremities: no edema BLEs Results Imaging Additional studies: CXR: Platelike atelectasis in left lung base. Labs Result diagrams: 06/14/22 12:22 06/14/22 18:50 Labs: Laboratory Results - last 24 hr 06/14/22 06/14/22 06/14/22 11:31 12:22 12:22 WBC 7.91 RBC 4.87 Hgb 13.3 Hct 44.4 MCV 91 MCH 27.3 MCHC 30.0 L RDW 15.8 H Plt Count 269 MPV 10.8 Immature Gran % 0.4 Neutrophils % 83.4 Lymphocytes % 12.0 Monocytes % 3.8 Eosinophils % 0.1 Basophils % 0.3 Nucleated RBC % 0.0 Absolute Neutrophils 6.60 Absolute Lymphocytes 0.95 L Absolute Monocytes 0.30 Absolute Eosinophils 0.01 Absolute Basophils 0.02 VBG pH VBG pCO2 VBG pO2 VBG HCO3 VBG Total CO2 VBG O2 Saturation VBG Base Excess Sodium 133 L Potassium 4.9 Chloride 86 L Carbon Dioxide 17.3 L Anion Gap 29.7 H BUN 33 H Creatinine 2.1 H Est GFR (CKD-EPI 2020) 27.83 Glucose 952 H* Calcium 10.2 H Magnesium 2.5 H Total Bilirubin 1.0 AST 26 ALT 70 H Alkaline Phosphatase 132 H Troponin I 84 H* Total Protein 7.6 Albumin 3.4 Ethyl Alcohol < 3.0 COVID-19 Source Nasal/Nares SARS-CoV-2 (PCR) Negative 06/14/22 06/14/22 06/14/22 12:22 12:22 14:20 WBC RBC Hgb Hct MCV MCH MCHC RDW Plt Count MPV Immature Gran % Neutrophils % Lymphocytes % Monocytes % Eosinophils % Basophils % Nucleated RBC % Absolute Neutrophils Absolute Lymphocytes Absolute Monocytes Absolute Eosinophils Absolute Basophils VBG pH 7.25 L VBG pCO2 38 L VBG pO2 41 VBG HCO3 16 L VBG Total CO2 15 L VBG O2 Saturation 66 VBG Base Excess -11 L Sodium 138 Potassium 3.5 D Chloride 92 L Carbon Dioxide 15.4 L Anion Gap 30.6 H BUN 36 H Creatinine 2.5 H Est GFR (CKD-EPI 2020) 22.57 Glucose 820 H* Calcium 9.5 Magnesium Total Bilirubin 0.9 AST 23 ALT 67 H Alkaline Phosphatase 119 H Troponin I Total Protein 7.1 Albumin 3.1 L Ethyl Alcohol Cancelled COVID-19 Source SARS-CoV-2 (PCR) 06/14/22 14:20 WBC RBC Hgb Hct MCV MCH MCHC RDW Plt Count MPV Immature Gran % Neutrophils % Lymphocytes % Monocytes % Eosinophils % Basophils % Nucleated RBC % Absolute Neutrophils Absolute Lymphocytes Absolute Monocytes Absolute Eosinophils Absolute Basophils VBG pH VBG pCO2 VBG pO2 VBG HCO3 VBG Total CO2 VBG O2 Saturation VBG Base Excess Sodium Potassium Chloride Carbon Dioxide Anion Gap BUN Creatinine Est GFR (CKD-EPI 2020) Glucose Calcium Magnesium Total Bilirubin AST ALT Alkaline Phosphatase Troponin I 79 H* Total Protein Albumin Ethyl Alcohol COVID-19 Source SARS-CoV-2 (PCR) Last Vital Signs Temp 36.2 C L 06/14/22 11:25 Pulse 102 H 06/14/22 17:25 Resp 16 06/14/22 17:25 BP 109/68 06/14/22 17:25 Pulse Ox 97 06/14/22 17:25
[2022-06-14] MEDS: POTASSIUM CHLORIDE/0.9% NACL 1,000 ML 250 MEQ IV (18:28)
--- NOTE | 2022-06-14 18:30 | NUR.NOTE ---
IV insulin turned off at 1445 by Elise Hayes, as stated to this color repairer. She told me that her provider told her to turn it off because the pt's potassium level was low. IV insulin off on arrival to ICU. Blood sugar on glucometer HI BP very low. Dr. Santos notified, insulin started at previous dose of 12 units/hr, IV NS 20 meq kcl started at 250 ml/hr, Nursing coin machine collector supervisor notified.
[2022-06-14] MEDS: Normal Saline Flush 10 ML SYR IVP (18:57)
[2022-06-14] MEDS: Pantoprazole 40 MG VIAL IVP (18:57)
[2022-06-14 19:01] LABS: HCO3 (Venous) 11 mmol/L (23-28); O2 Sat (Venous) 98 %; TCO2 (Venous) 10 mmol/L (24-29); pCO2 (Venous) 25 mmHg (41-51); pH (Venous) 7.25 (7.31-7.41); pO2 (Venous) 104 mmHg
--- NOTE | 2022-06-14 19:03 | W.ANESVAS ---
Midline Placement Date Performed: 06/14/22 Procedure Time: 19:03 Requesting Provider: Maakyla Santos Procedure Location: Intensive Care Unit Sedation Given (Indicate Dose Given): No Sedation given Patient Mental Status: Sedated or Ventilated without meaningful communication Sterility: Hand Hygiene, Surgical Cap, Surgical Mask, Sterile Gloves and Chlorhexidine Laterality: Left Insertion Site: Basilic Midline Device: PowerGlide Pro 18G Catheter Length: 10 cm Midline Procedure Procedure: 1% Lidocaine to skin and subcutaneous tissue with 25g needle, Vessel accessed with catheter over needle, Guidewire placed with ease, Catheter placed without resistance and Guidewire removed Dressing: Tegaderm Applied and Other (reinforced with 4 amsorb tape.) Blood Return: Present Flushes: Easily Ultrasound: Sterile probe cover and gel used Ultrasound Image Saved?: Yes Number of Attempts (See previous attempts in note section): 1 Procedure Tolerated: No Complications and Patient tolerated well Procedure Outcome: Successful Performed By: Kadeem Esquivel
[2022-06-14 19:22] LABS: Anion Gap 28.5 mmol/L (3-11); BUN 35 mg/dL (7-18); CO2 13.5 mmol/L (21.0-32.0); CREATININE 2.3 mg/dL (0.55-1.02); Calcium 8.3 mg/dL (8.5-10.1); Chloride 100 mmol/L (98-107); Estimated GFR 24.95 (mL/min/1.73m2); Magnesium 1.9 mg/dL (1.8-2.4); Potassium 4.2 mmol/L (3.5-5.1); Sodium 142 mmol/L (136-145)
[2022-06-14 19:24] LABS: Glucose 693 mg/dL (74-106)
[2022-06-14 19:30] LABS: Lactate 2.7 mmol/L (0.6-1.4)
--- NOTE | 2022-06-14 19:45 | DI.VRAD_ITS ---
PROCEDURE INFORMATION: Exam: XR Chest Exam date and time: 06/14/2022 19:06 Age: 52 years old Clinical indication: Other: Sepsis TECHNIQUE: Imaging protocol: Radiologic exam of the chest. Views: 1 view. COMPARISON: XR PORTABLE CHEST AP 06/07/2022 20:17 FINDINGS: Lungs: Low lung volumes. No airspace consolidation. Pleural spaces: No pleural effusion. No pneumothorax. Heart/Mediastinum: No significant cardiomegaly for position and projection. Bones/joints: No acute fracture. IMPRESSION: Negative low volume study. Dictated and Authenticated by: Jaja Meehan MD. Ordering:YULY Benavides MD
[2022-06-14] MEDS: Lactated Ringers 1,000 ML 1000 ML IV (20:00)
[2022-06-14] MEDS: Clotrimazole 1% 15 GM TUBE TP (20:00)
[2022-06-14] MEDS: PIPERACILLIN/TAZO 3.375 GM in Normal Saline 50 ML IVPB (20:20)
[2022-06-14 20:44] LABS: Procalcitonin 0.4 ng/mL
[2022-06-14] MEDS: VANCOMYCIN 1,250 MG in Normal Saline 250 ML 166.667 MG IVPB (22:12)
[2022-06-14 22:17] LABS: Lactate 2.1 mmol/L (0.6-1.4)
[2022-06-14 22:27] LABS: BE (Venous) -4 mmol/L (-2-3); HCO3 (Venous) 22 mmol/L (23-28); O2 Sat (Venous) 82 %; TCO2 (Venous) 20 mmol/L (24-29); pCO2 (Venous) 40 mmHg (41-51); pH (Venous) 7.35 (7.31-7.41); pO2 (Venous) 48 mmHg
[2022-06-14 22:38] LABS: Anion Gap 15.3 mmol/L (3-11); BUN 32 mg/dL (7-18); CO2 22.7 mmol/L (21.0-32.0); CREATININE 2.1 mg/dL (0.55-1.02); Calcium 8.4 mg/dL (8.5-10.1); Chloride 106 mmol/L (98-107); Estimated GFR 27.83 (mL/min/1.73m2); Glucose 348 mg/dL (74-106); Magnesium 1.9 mg/dL (1.8-2.4); Potassium 3.6 mmol/L (3.5-5.1); Sodium 144 mmol/L (136-145)
[2022-06-14] MEDS: POTASSIUM CHLORIDE/0.9% NACL 1,000 ML 125 MEQ IV (22:42)
[2022-06-14] MEDS: INSULIN REGULAR IN 0.9 % NACL 100 UNIT/100 ML BAG 6.5 UNIT IV (23:00)
[2022-06-15] VITALS (93 sets, daily range): BP systolic 56–168; BP diastolic 30–127; PULSE 57–101; RESP 12–29; TEMP 37–37.7; O2SAT 89–98
--- NOTE | 2022-06-15 | DI.RAD_ITS ---
Exam(s) XR PORTABLE CHEST AP EXAM: XR PORTABLE CHEST AP CLINICAL HISTORY: central line placement TECHNIQUE: 2D digital imaging was performed. COMPARISON: CR,XR XR PORTABLE CHEST AP from 06/07/2022 CR,XR XR PORTABLE CHEST AP from 06/14/2022 FINDINGS: Leads are coiled over the lower chest. A central venous line has been inserted on the right side with the tip projecting in the right atrium . There is no pneumothorax. LUNGS: Not well inflated but grossly clear. There is a question of a tiny right pleural effusion. HEART: Grossly normal. AORTA: Normal. BONES: Unremarkable for age. Soft tissues: Unremarkable. IMPRESSION: Central venous catheter placement with tip projecting in the right atrium. No pneumothorax. DATA REPOSITORY: RADIATION DOSE DELIVERED:
[2022-06-15 02:39] LABS: Bilirubin Small (Negative); Blood Negative (Negative); Clarity Clear (Clear); Glucose >=1000 mg/dL (Negative); Ketones 40 mg/dL (Negative); Leukocyte Esterase Negative (Negative); Nitrite Negative (Negative); Specific Gravity 1.015 (1.005-1.025); Urobilinogen 0.2 EU/dL (Up TO 0.2); pH 5.5 (5-8)
[2022-06-15 09:00] LABS: Abs Immature Grans 0.03 10^3/uL (0.0-0.06); Absolute Basophil Count 0.02 10^3/uL (0.0-0.2); Absolute Eosinophil Count 0.01 10^3/uL (0.0-0.7); Absolute Lymphocyte Count 1.84 10^3/uL (1.2-3.4); Absolute Monocyte Count 0.74 10^3/uL (0.1-0.8); Basophils % 0.2; Eosinophils % 0.1; HCT 43.6 % (36.0-46.0); HGB 14.3 g/dL (11.2-15.7); Immature Grans % 0.3; Lymphocytes % 15.6; MCH 27.6 pg (27.0-33.0); MCHC 32.8 % (32.0-36.0); MCV 84 fL (80-95); Monocytes % 6.3; Neutrophils % 77.5; RBC 5.18 10^6/uL (3.93-5.22); RDW 15.7 % (11.7-14.6); RDW-SD 47.7 fL; WBC 11.78 10^3/uL (4.4-10.8)
[2022-06-15 09:03] LABS: Absolute Neutrophil Count 9.13 10^3/uL (1.2-6.7)
[2022-06-15 09:15] LABS: Diff Comment Diff Reviewed; RBC Morphology Normal
[2022-06-15] MEDS: Sucralfate 1 GM TAB PO (09:17)
[2022-06-15] MEDS: ARIPiprazole 2 MG TAB PO (09:18)
[2022-06-15] MEDS: Atorvastatin 20 MG TAB PO (09:18)
[2022-06-15] MEDS: Docusate Sodium 100 MG CAP PO (09:18)
[2022-06-15] MEDS: Multivitamin TAB 1 TAB PO (09:19)
[2022-06-15] MEDS: Thiamine 100 MG TAB PO (09:19)
[2022-06-15] MEDS: Folic Acid 1 MG TAB PO (09:19)
[2022-06-15] MEDS: Gabapentin 100 MG CAP PO (09:20)
[2022-06-15] MEDS: Cholecalciferol (Vitamin D3) 1,000 UNIT TAB 1000 UNITS PO (09:20)
[2022-06-15] MEDS: Nicotine 14 MG/24 HR PATCH TD (09:20)
--- NOTE | 2022-06-15 10:16 | INITIAL_ITS ---
- If Service Date Differs Date of service: 06/15/22 Time of Service: 10:16 Care Management Initial Assess REASON FOR HOSPITALIZATION:: DKA, OMID on CKD PAST MEDICAL HISTORY/PAST SURGICAL HISTORY:: All Active Problems. Hypotension (Acute). Discharge planning issues (Acute). DVT prophylaxis (Acute). Fever (Acute). DKA (diabetic ketoacidosis) (Acute). Helicobacter pylori gastritis (Acute). Alcoholism (Chronic). Nausea (Acute). Chronic nausea-occasional use of generic Zofran. She knows to use this sparingly-aware of side effects potentially with methadone. Substance abuse (Chronic). History of opiate abuse, more remotely benzodiazepine abuse, followed by [facility] clinic in [place], on methadone. Hyperlipidemia (Acute). Anxiety (Chronic). 2021-Drug contract with [employer] queried, plan is only occasional exam lorazepam for panic attack, reviewed with [facility] clinic. Plan is a limit of 10/month of lorazepam. Patient already has Narcan at home. 01/31/2022 patient given 1 refill of 10 tabs by phone, she will need an office visit for any further refills. Hypertension (Chronic). Abscess of finger (Acute). Distal radius fracture, right (Acute). Internal derangement of right knee (Acute 11/14/20). Type 2 diabetes mellitus with hypoglycemic insulin reaction (Acute). Pneumonia (Acute). Diabetic nephropathy (Chronic 02/01/15). Schizophrenia (Chronic). a. no evidence on this exam or her prior admission in 2009. Elevated serum creatinine (Acute 02/01/15). Medical History. Alcohol abuse. Alcohol dependence in remission. Anxiety. Cellulitis of left hand (02/01/15). a. secondary to cat bite vs. IVDU. b. has 13 cats at home. c. denies ongoing IVDU at this time. Closed fracture of distal end of right fibula (10/04/16). Constipation. COPD (chronic obstructive pulmonary disease). Current smoker (02/01/15). x 29 years. Depressive disorder. Diabetes mellitus, type II. a. chronic noncompliance. b. multiple episodes of admission for [facility]. c. ? diabetic retinopathy. Drug addiction. on Methadone. heroin use in remission x 3 years. Hyperlipemia. Hyperlipidemia. statin started . Non compliance with medical treatment (02/01/15). Panic disorder. PTSD (post-traumatic stress disorder). Schizophrenia. Umbilical hernia, incarcerated. Ventral hernia without obstruction or gangrene PREVIOUS FUNCTIONAL STATUS/SOCIAL/FAMILY SUPPORTS:: Josefnia lives in an apartment in [facility] with her Chandan. Nani had a son who and his girlfriend and their daughter, who has special needs, lives with them as well. Nani is disabled and does not work. She is independent at baseline and does not receive any services. CURRENT FUNCTIONAL STATUS:: Josefnia was lying in bed when CM attempted to meet with her, and she was not easily awoken. CM talked to Chandan, her , who was in the family meeting room. He expressed his concern about her safety in the community, and advocated for her to have inpatient psychiatric treatment. There is a mental health consult, and [facility] will visit with her once she is medically cleared. CM will continue to follow. ADVANCE DIRECTIVES:: None on file. Has patient been provided with info about the portal/API?: Yes Did the patient sign up for the portal?: No CODE STATUS:: Full Code INSURANCE COVERAGE / FINANCIAL ISSUES:: Medicaid CURRENT HOME/COMMUNITY SERVICES/EQUIPMENT:: On previous admission CM ordered HH RN and sent referrals to [facility] and [facility]. Unfortunately they were unable to connect with her as her phone was disconnected and she was not at home. PRIMARY CARE PHYSICIAN:: Xin tSern POTENTIAL DISCHARGE NEEDS:: Josefina would likely benefit from an inpatient stay in a psychiatric hospital for stabilization of her psychiatric issues. They appear to be interfering with her ability to manage her diabetes. She will likely be evaluated by mental health when she is medically cleared. PATIENT/FAMILY EDUCATION NEEDS:: Review of discharge instructions, limitations, activity, medications, diabetes control, diet, follow up plan, discuss Ask Me Three ANTICIPATED BARRIERS TO DISCHARGE:: Josefina has had four admissions in the last three weeks. [facility] will evaluate for psychiatric needs once medically cleared, although Josefina may oppose this. TRANSPORTATION:: To be determined by disposition. PLAN:: Josefina is being treated and closely monitored in the ICU. This is her forth admission in the last three weeks for DKA, possibly due in part to her mental health issues. She will need a mental health evaluation and possible treatment. Josefina will follow up with her PCP and plan of care and transport with family if discharged directly home. CM will provide support to Josefina and her discharge needs. Readmission - Within the Past 30 Days Yes or No: Y - Date of First Admission Date of 1st Admission: 06/07/22 - Date of this Admission Date of Admission: 06/14/22 This admission was: Through ED - Office Visit Since 1st Admission Have you seen your PCP in the office since discharge?: No Had an appointment Been Scheduled?: Yes Date of Scheduled Appointment: 06/23/22 - ED visits How many ED visits in the past 12 months: 6 - Assessment for Readmission Summary of readmission circumstances, based upon interviews: Josefina was not able to engage with this lead technical writer today. Josefina has been hospitalized four times in the past three weeks, all for DKA. Family reports that she is not stable psychiatrically, and are advocating for psychiatric treatment. She has a mental health consult, and will meet with them once she is medically cleared. is also advocating for inpatient psychiatric treatment. If she is not agreeable, she may be held involuntarily by [facility] due to the serious nature of her condition upon arrival.
[2022-06-15] MEDS: OLANZapine 5 MG TAB PO (10:17)
--- NOTE | 2022-06-15 10:29 | SCONE_ITS ---
Date of service: 06/15/22 Time of Service: 10:29 Assessment and Plan Assessment and plan (1) Hypotension: Status: Acute Assessment and plan: Uncomplicated insertion of right IJ central venous catheter using ultrasound guidance for resuscitation. History of Present Illness History of Present Illness Chief Complaint: Change in mental status Narrative: 52 year old woman who presents to the ED with change in mental status. She was found to have DKA and she was admitted to the ICU for resuscitation and glucose management. Multiple peripheral IV have failed. I was consulted for insertion of a central line. I met with the patient at the bedside and performed an examination of her neck and chest. I explained the risks and benefits of central venous catheterization, and she provided informed consent. Consults Consult date: 06/15/22 Requesting physician: Makayla Santos Review of Systems Constitutional Constitutional: Reports chills, Denies difficulty sleeping, Reports fatigue and Reports lethargy Eyes Eyes: Reports system reviewed and no additional complaints, except as documented ENT Ears, Nose, Mouth, and Throat: Reports system reviewed and no additional complaints, except as documented and Reports dizziness Cardiovascular Cardiovascular: Denies chest pain and Denies dyspnea Respiratory Respiratory: Denies cough and Denies dyspnea Gastrointestinal Gastrointestinal: Denies abdominal pain and Reports belching Comments: increased thirst Musculoskeletal Musculoskeletal: Reports myalgias and Reports muscle weakness Neurologic Neurologic: Reports behavioral changes, Reports confusion and Reports dizziness Psychiatric Psychiatric: Reports behavioral changes and Reports confusion Endocrine Endocrine: Reports fatigue, Reports polydipsia and Reports polyuria Hematologic/Lymphatic Hematologic/Lymphatic: Denies easy bleeding and Denies easy bruising PFSH All Active Problems Hypotension (Acute) Discharge planning issues (Acute) DVT prophylaxis (Acute) Fever (Acute) DKA (diabetic ketoacidosis) (Acute) Helicobacter pylori gastritis (Acute) Alcoholism (Chronic) Nausea (Acute) Chronic nausea-occasional use of generic Zofran. She knows to use this sparingly-aware of side effects potentially with methadone Substance abuse (Chronic) History of opiate abuse, more remotely benzodiazepine abuse, followed by [facility] clinic in [place], on methadone Hyperlipidemia (Acute) Anxiety (Chronic) 2021-Drug contract with [employer], PMS queried, plan is only occasional exam lorazepam for panic attack, reviewed with [facility] Plan is a limit of 10/month of lorazepam Patient already has Narcan at home 01/31/2022 patient given 1 refill of 10 tabs by phone, she will need an office visit for any further refills Hypertension (Chronic) Abscess of finger (Acute) Distal radius fracture, right (Acute) Internal derangement of right knee (Acute 11/14/20) Type 2 diabetes mellitus with hypoglycemic insulin reaction (Acute) Pneumonia (Acute) Diabetic nephropathy (Chronic 02/01/15) Schizophrenia (Chronic) a. no evidence on this exam or her prior admission in 2009 Elevated serum creatinine (Acute 02/01/15) Medical History Alcohol abuse Alcohol dependence in remission Anxiety Cellulitis of left hand (02/01/15) a. secondary to cat bite vs. IVDU b. has 13 cats at home c. denies ongoing IVDU at this time Closed fracture of distal end of right fibula (10/04/16) Constipation COPD (chronic obstructive pulmonary disease) Current smoker (02/01/15) x 29 years Depressive disorder Diabetes mellitus, type II a. chronic noncompliance b. multiple episodes of admission for [facility] c. ? 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 Hyperlipemia Hyperlipidemia statin started Non compliance with medical treatment (02/01/15) Panic disorder PTSD (post-traumatic stress disorder) Schizophrenia Umbilical hernia, incarcerated Ventral hernia without obstruction or gangrene Social History Smoking/Tobacco Use Status: Unknown Smoking risk assessment performed?: Yes Alcohol Intake: current Alcohol Intake frequency: 0-2 drinks per day Drug use: Current Sobriety Substance use type: does not use Details: drank twisted tea today Current gender identity: female Do you feel safe at home: Yes Do you feel safe in your relationship?: Yes Additional Social history: Ms. Higginbotham has a significant other in the form of a boyfriend. Her only child, a son, reportedly over the last 1 1/2 years. Continued tobacco use. 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 Intermitted EtOH use. Exam Const General: cooperative and anxious Nutritional Appearance: overweight Orientation: alert, awake and oriented x3 Eyes General: appearance normal, both eyes and all related structures Neck Neck: normal visual inspection, full ROM, no lymphadenopathy, trachea midline, supple and no lymphadenopathy noted Thyroid: thyroid normal Chest Chest: normal inspection of the chest Resp Effort & Inspection: normal respiratory effort and able to speak in complete sentences Auscultation: clear to auscultation bilaterally Results Last Vital Signs Temp 100.2 F H 06/14/22 19:05 Pulse 81 06/15/22 01:32 Resp 19 06/15/22 01:32 BP 109/47 L 06/15/22 01:32 Pulse Ox 92 06/15/22 01:32 Labs Result diagrams: 06/15/22 10:42 06/15/22 10:00 Labs: Laboratory Results - last 24 hr 06/14/22 06/14/22 06/14/22 08:12 11:31 12:22 WBC RBC Hgb Hct MCV MCH MCHC RDW Plt Count MPV Immature Gran % Neutrophils % Lymphocytes % Monocytes % Eosinophils % Basophils % Nucleated RBC % Absolute Neutrophils Absolute Lymphocytes Absolute Monocytes Absolute Eosinophils Absolute Basophils RBC Morphology VBG pH VBG pCO2 VBG pO2 VBG HCO3 VBG Total CO2 VBG O2 Saturation VBG Base Excess VBG Lactate 2.1 H Sodium 133 L Potassium 4.9 Chloride 86 L Carbon Dioxide 17.3 L Anion Gap 29.7 H BUN 33 H Creatinine 2.1 H Est GFR (CKD-EPI 2020) 27.83 Glucose 952 H* Calcium 10.2 H Magnesium 2.5 H Total Bilirubin 1.0 AST 26 ALT 70 H Alkaline Phosphatase 132 H Troponin I 84 H* Total Protein 7.6 Albumin 3.4 Procalcitonin Urine Color Urine Clarity Urine pH Ur Specific [place] Urine Protein Urine Ketones Urine Blood Urine Nitrite Urine Bilirubin Urine Urobilinogen Ur Leukocyte Esterase Urine Glucose Ethyl Alcohol < 3.0 COVID-19 Source Nasal/Nares SARS-CoV-2 (PCR) Negative 06/14/22 06/14/22 06/14/22 12:22 12:22 12:22 WBC 7.91 RBC 4.87 Hgb 13.3 Hct 44.4 MCV 91 MCH 27.3 MCHC 30.0 L RDW 15.8 H Plt Count 269 MPV 10.8 Immature Gran % 0.4 Neutrophils % 83.4 Lymphocytes % 12.0 Monocytes % 3.8 Eosinophils % 0.1 Basophils % 0.3 Nucleated RBC % 0.0 Absolute Neutrophils 6.60 Absolute Lymphocytes 0.95 L Absolute Monocytes 0.30 Absolute Eosinophils 0.01 Absolute Basophils 0.02 RBC Morphology VBG pH 7.25 L VBG pCO2 38 L VBG pO2 41 VBG HCO3 16 L VBG Total CO2 15 L VBG O2 Saturation 66 VBG Base Excess -11 L VBG Lactate Sodium Potassium Chloride Carbon Dioxide Anion Gap BUN Creatinine Est GFR (CKD-EPI 2020) Glucose Calcium Magnesium Total Bilirubin AST ALT Alkaline Phosphatase Troponin I Total Protein Albumin Procalcitonin Urine Color Urine Clarity Urine pH Ur Specific [place] Urine Protein Urine Ketones Urine Blood Urine Nitrite Urine Bilirubin Urine Urobilinogen Ur Leukocyte Esterase Urine Glucose Ethyl Alcohol Cancelled COVID-19 Source SARS-CoV-2 (PCR) 06/14/22 06/14/22 06/14/22 14:20 14:20 18:50 WBC RBC Hgb Hct MCV MCH MCHC RDW Plt Count MPV Immature Gran % Neutrophils % Lymphocytes % Monocytes % Eosinophils % Basophils % Nucleated RBC % Absolute Neutrophils Absolute Lymphocytes Absolute Monocytes Absolute Eosinophils Absolute Basophils RBC Morphology VBG pH VBG pCO2 VBG pO2 VBG HCO3 VBG Total CO2 VBG O2 Saturation VBG Base Excess VBG Lactate Sodium 138 142 Potassium 3.5 D 4.2 Chloride 92 L 100 Carbon Dioxide 15.4 L 13.5 L Anion Gap 30.6 H 28.5 H BUN 36 H 35 H Creatinine 2.5 H 2.3 H Est GFR (CKD-EPI 2020) 22.57 24.95 Glucose 820 H* 693 H* Calcium 9.5 8.3 L Magnesium 1.9 Total Bilirubin 0.9 AST 23 ALT 67 H Alkaline Phosphatase 119 H Troponin I 79 H* Total Protein 7.1 Albumin 3.1 L Procalcitonin Urine Color Urine Clarity Urine pH Ur Specific [place] Urine Protein Urine Ketones Urine Blood Urine Nitrite Urine Bilirubin Urine Urobilinogen Ur Leukocyte Esterase Urine Glucose Ethyl Alcohol COVID-19 Source SARS-CoV-2 (PCR) 06/14/22 06/14/22 06/14/22 18:50 18:50 22:00 WBC RBC Hgb Hct MCV MCH MCHC RDW Plt Count MPV Immature Gran % Neutrophils % Lymphocytes % Monocytes % Eosinophils % Basophils % Nucleated RBC % Absolute Neutrophils Absolute Lymphocytes Absolute Monocytes Absolute Eosinophils Absolute Basophils RBC Morphology VBG pH 7.25 L VBG pCO2 25 L VBG pO2 104 VBG HCO3 11 L VBG Total CO2 10 L VBG O2 Saturation 98 VBG Base Excess < -15 L VBG Lactate 2.7 H* Sodium 144 Potassium 3.6 Chloride 106 Carbon Dioxide 22.7 Anion Gap 15.3 H BUN 32 H Creatinine 2.1 H Est GFR (CKD-EPI 2020) 27.83 Glucose 348 H Calcium 8.4 L Magnesium 1.9 Total Bilirubin AST ALT Alkaline Phosphatase Troponin I Total Protein Albumin Procalcitonin 0.4 Urine Color Urine Clarity Urine pH Ur Specific [place] Urine Protein Urine Ketones Urine Blood Urine Nitrite Urine Bilirubin Urine Urobilinogen Ur Leukocyte Esterase Urine Glucose Ethyl Alcohol COVID-19 Source SARS-CoV-2 (PCR) 06/14/22 06/15/22 06/15/22 22:00 01:00 08:40 WBC 11.78 H RBC 5.18 Hgb 14.3 Hct 43.6 MCV 84 D MCH 27.6 MCHC 32.8 D RDW 15.7 H Plt Count MPV Immature Gran % 0.3 Neutrophils % 77.5 Lymphocytes % 15.6 Monocytes % 6.3 Eosinophils % 0.1 Basophils % 0.2 Nucleated RBC % 0.0 Absolute Neutrophils 9.13 H Absolute Lymphocytes 1.84 Absolute Monocytes 0.74 Absolute Eosinophils 0.01 Absolute Basophils 0.02 RBC Morphology Normal VBG pH 7.35 VBG pCO2 40 L VBG pO2 48 VBG HCO3 22 L VBG Total CO2 20 L VBG O2 Saturation 82 VBG Base Excess -4 L VBG Lactate Sodium Potassium Chloride Carbon Dioxide Anion Gap BUN Creatinine Est GFR (CKD-EPI 2020) Glucose Calcium Magnesium Total Bilirubin AST ALT Alkaline Phosphatase Troponin I Total Protein Albumin Procalcitonin Urine Color Yellow Urine Clarity Clear Urine pH 5.5 Ur Specific [place] 1.015 Urine Protein Negative Urine Ketones 40 H Urine Blood Negative Urine Nitrite Negative Urine Bilirubin Small H Urine Urobilinogen 0.2 Ur Leukocyte Esterase Negative Urine Glucose >=1000 H Ethyl Alcohol COVID-19 Source SARS-CoV-2 (PCR) Procedures Central Line Placement Right IJ: Time out performed: Yes Patient placed on monitor/pulse ox: Yes MD prep: mask, gown and gloves Central line prep: Chlorhexidine scrub Amount of anesthesia used (ml): 4 Ultrasound used for placement: Yes Central line lumen inserted: triple Post procedure: sutured in place, good blood return, all ports aspirated, flushed, capped and sterile dressing applied Post procedure x-ray: tip of catheter in good position and no pneumothorax seen Patient tolerated procedure: well Complications: none
[2022-06-15 10:48] LABS: Platelet Count 181 10^3/uL (130-400)
[2022-06-15 10:52] LABS: Anion Gap 21.7 mmol/L (3-11); BUN 34 mg/dL (7-18); CO2 15.3 mmol/L (21.0-32.0); CREATININE 2.5 mg/dL (0.55-1.02); Calcium 8.3 mg/dL (8.5-10.1); Chloride 103 mmol/L (98-107); Estimated GFR 22.57 (mL/min/1.73m2); Magnesium 1.8 mg/dL (1.8-2.4); Sodium 140 mmol/L (136-145)
[2022-06-15 10:53] LABS: BE (Venous) -14 mmol/L (-2-3); HCO3 (Venous) 13 mmol/L (23-28); O2 Sat (Venous) 88 %; TCO2 (Venous) 12 mmol/L (24-29); pCO2 (Venous) 30 mmHg (41-51); pH (Venous) 7.24 (7.31-7.41); pO2 (Venous) 58 mmHg
[2022-06-15 10:54] LABS: Glucose 527 mg/dL (74-106)
[2022-06-15 10:55] LABS: Lactate 1.4 mmol/L (0.6-1.4)
[2022-06-15] MEDS: PIPERACILLIN/TAZO 3.375 GM in Normal Saline 50 ML IVPB (11:10)
[2022-06-15] MEDS: POTASSIUM CHLORIDE/0.9% NACL 1,000 ML 125 MEQ IV ×2 (11:16→20:02)
[2022-06-15] MEDS: INSULIN REGULAR IN 0.9 % NACL 100 UNIT/100 ML BAG 6.5 UNIT IV (11:27)
[2022-06-15] MEDS: Lactated Ringers 1,000 ML 500 ML IV (11:30)
--- NOTE | 2022-06-15 13:24 | W.INDIABCONS ---
Date of service: 06/15/22 Time of Service: 13:24 Diabetes Inpatient Consult Reason for Visit: diabetes education DESCRIPTION/ASSESSMENT: Nani was admitted for the 4th time this month with DKA secondary to not taking insulin as prescribed for fear of insulin being poison. Have met with Nani at previous admissions for education in last coupld of weeks. Has been unable to follow through with her diabetes management due to delusions/paranoia. PMH: Alcoholism, Type 2 DM, mental health concerns. Hx of non compliance with insulin prescription and diet due to delusions/paranoia. Not appropriate for education at this time. PLAN: Will be available prn. Time Spent in Nutritional Counseling and Treatment: 0
--- NOTE | 2022-06-15 14:14 | CHAPLAIN ---
Josefina was admitted to the ICU for the fourth time in about a month. She had not been taking her diabetic medication according to ER notes. Her Chandan is here. They have been living separately the last few days, since Josefina's last admission and discharge. I didn't not speak with Nani today. She was sleeping the few times I checked in. Chandan is very frustrated with the situation and believes [facility] so she will get her meds on a regular basis and let her depression medicine take affect. I will continue to visit Josefina and Chandan.
--- NOTE | 2022-06-15 16:17 | NUR.NOTE ---
In chart for educational case review. Nursing Note:
[2022-06-15] MEDS: Pantoprazole 40 MG VIAL IVP (17:31)
[2022-06-15] MEDS: Normal Saline Flush 10 ML SYR IVP ×2 (17:50→17:55)
[2022-06-15] MEDS: Lactated Ringers 1,000 ML 1000 ML IV (17:51)
[2022-06-15] MEDS: PIPERACILLIN/TAZO 2.25 GM in Normal Saline 50 ML IVPB (17:56)
[2022-06-15] MEDS: VANCOMYCIN 750 MG in Normal Saline 250 ML 166.667 MG IVPB (18:00)
[2022-06-15 18:04] LABS: Anion Gap 15.8 mmol/L (3-11); BUN 36 mg/dL (7-18); CO2 20.2 mmol/L (21.0-32.0); Calcium 8.1 mg/dL (8.5-10.1); Chloride 108 mmol/L (98-107); Estimated GFR 18.14 (mL/min/1.73m2); Glucose 263 mg/dL (74-106); Magnesium 1.8 mg/dL (1.8-2.4); Sodium 144 mmol/L (136-145)
--- NOTE | 2022-06-15 18:07 | PGE_ITS ---
Date of Service Date of service: 06/15/22 Time of Service: 09:00 Assessment and Plan Assessment and plan (1) DKA (diabetic ketoacidosis): Status: Acute Assessment and plan: Continue aggressive IVF, Insulin gtt, serial chemistries, VBGs. UA negative. CXR negative. COVID-19 PCR negative. Unfortunately, it appears that this admission is the product of a suicide attempt. (2) Hypotension: Status: Acute Assessment and plan: In setting of dehydration/DKA but also possibly sepsis given borderline temp. So far, all infectious studies are negative. Today's episode was likely a response to zyprexa, which can cause severe hypotension. Continue empiric vancomycin/zosyn given h/o recent hospitalizations. The patient was weaned off of norepinephrine this afternoon. (3) Suicide attempt: Status: Acute Assessment and plan: As above Will need a mental health consult when medically cleared. (4) Fever: Status: Acute Assessment and plan: As above (5) Helicobacter pylori gastritis: Status: Acute Assessment and plan: I am not sure if the patient was compliant with oral abx. She may benefit from resumption of the whole regimen, but will await until she can tolerate a diet. (6) Alcoholism: Status: Chronic Assessment and plan: Again, unclear how recently the patient last drank. No evidence of w/d at this time. The patient is not admitting to drinking alcohol; will find out from the . (7) Substance abuse: Status: Chronic Assessment and plan: Patient is a client of [facility] on methadone. methadone was held today due to somnolence. (8) Schizophrenia: Status: Chronic Assessment and plan: I suspect that this is a major contributor to patient's noncompliance with medication and that admissions for DKA will keep recurring unless her psychiatric issues are properly addressed. Will seek psychiatric placement. There is also a suicidal ideation component. The patient's has previously verbalized to us that the patient believes that insulin is poison and has other delusional ideas about her medications. Will need a mental health consult when medically cleared. Qualifiers: Schizophrenia type: schizophreniform disorder Qualified Code(s): F20.81 - Schizophreniform disorder (9) DVT prophylaxis: Status: Acute Assessment and plan: SCDS. Hold chemical DVT ppx given recent GI bleeding (10) Discharge planning issues: Status: Acute Assessment and plan: Full code Keep in ICU. Total Critical Care Time 35 minutes. Subjective Subjective Interval history since last seen: Ms Higginbotham is not answering all of my questions today. She repeatedly requests that she get her peptobismal prior to her medications when I try to ask her about pain, shortness of breath, etc. She is not answering where she is. Overnight, tore out her midline. A central line had to be placed this morning. There was a period of time when the patient had no IV access and, therefore, did not receive either IVF and insulin gtt. She received zyprexa this morning which made her quite hypotensive - briefly required vasopressors. These have now been weaned off (18:09). states that the patient told him that she stopped taking her insulin because she wanted to like her son. Exam Narrative Exam Narrative: General: Obese female who is drinking water and taking her morning me dications, has a hard time focusing on my questions. HEENT: EOMI, dry MM Cardiovascular: RRR, no m/r/g Lungs: CTAB Gastrointestinal: soft, nontender, nondistended Genitourinary: has a gandara Extremities: no edema BLEs Objective Last Vital Signs Temp 37.0 C 06/15/22 12:00 Pulse 81 06/15/22 17:00 Resp 19 06/15/22 17:00 BP 121/55 L 06/15/22 17:00 Pulse Ox 96 06/15/22 17:00 Laboratory Results - last 24 hr 06/14/22 06/14/22 06/14/22 08:12 18:50 18:50 WBC RBC Hgb Hct MCV MCH MCHC RDW Plt Count MPV Immature Gran % Neutrophils % Lymphocytes % Monocytes % Eosinophils % Basophils % Nucleated RBC % Absolute Neutrophils Absolute Lymphocytes Absolute Monocytes Absolute Eosinophils Absolute Basophils RBC Morphology VBG pH 7.25 L VBG pCO2 25 L VBG pO2 104 VBG HCO3 11 L VBG Total CO2 10 L VBG O2 Saturation 98 VBG Base Excess < -15 L VBG Lactate 2.1 H Sodium 142 Potassium 4.2 Chloride 100 Carbon Dioxide 13.5 L Anion Gap 28.5 H BUN 35 H Creatinine 2.3 H Est GFR (CKD-EPI 2020) 24.95 Glucose 693 H* Calcium 8.3 L Magnesium 1.9 Procalcitonin Urine Color Urine Clarity Urine pH Ur Specific [place] Urine Protein Urine Ketones Urine Blood Urine Nitrite Urine Bilirubin Urine Urobilinogen Ur Leukocyte Esterase Urine Glucose 06/14/22 06/14/22 06/14/22 18:50 22:00 22:00 WBC RBC Hgb Hct MCV MCH MCHC RDW Plt Count MPV Immature Gran % Neutrophils % Lymphocytes % Monocytes % Eosinophils % Basophils % Nucleated RBC % Absolute Neutrophils Absolute Lymphocytes Absolute Monocytes Absolute Eosinophils Absolute Basophils RBC Morphology VBG pH 7.35 VBG pCO2 40 L VBG pO2 48 VBG HCO3 22 L VBG Total CO2 20 L VBG O2 Saturation 82 VBG Base Excess -4 L VBG Lactate 2.7 H* Sodium 144 Potassium 3.6 Chloride 106 Carbon Dioxide 22.7 Anion Gap 15.3 H BUN 32 H Creatinine 2.1 H Est GFR (CKD-EPI 2020) 27.83 Glucose 348 H Calcium 8.4 L Magnesium 1.9 Procalcitonin 0.4 Urine Color Urine Clarity Urine pH Ur Specific [place] Urine Protein Urine Ketones Urine Blood Urine Nitrite Urine Bilirubin Urine Urobilinogen Ur Leukocyte Esterase Urine Glucose 06/15/22 06/15/22 06/15/22 01:00 02:00 08:40 WBC 11.78 H RBC 5.18 Hgb 14.3 Hct 43.6 MCV 84 D MCH 27.6 MCHC 32.8 D RDW 15.7 H Plt Count MPV Immature Gran % 0.3 Neutrophils % 77.5 Lymphocytes % 15.6 Monocytes % 6.3 Eosinophils % 0.1 Basophils % 0.2 Nucleated RBC % 0.0 Absolute Neutrophils 9.13 H Absolute Lymphocytes 1.84 Absolute Monocytes 0.74 Absolute Eosinophils 0.01 Absolute Basophils 0.02 RBC Morphology Normal VBG pH VBG pCO2 VBG pO2 VBG HCO3 VBG Total CO2 VBG O2 Saturation VBG Base Excess VBG Lactate Sodium Cancelled Potassium Cancelled Chloride Cancelled Carbon Dioxide Cancelled Anion Gap Cancelled BUN Cancelled Creatinine Cancelled Est GFR (CKD-EPI 2020) Cancelled Glucose Cancelled Calcium Cancelled Magnesium Cancelled Procalcitonin Urine Color Yellow Urine Clarity Clear Urine pH 5.5 Ur Specific [place] 1.015 Urine Protein Negative Urine Ketones 40 H Urine Blood Negative Urine Nitrite Negative Urine Bilirubin Small H Urine Urobilinogen 0.2 Ur Leukocyte Esterase Negative Urine Glucose >=1000 H 06/15/22 06/15/22 06/15/22 10:00 10:00 10:00 WBC RBC Hgb Hct MCV MCH MCHC RDW Plt Count MPV Immature Gran % Neutrophils % Lymphocytes % Monocytes % Eosinophils % Basophils % Nucleated RBC % Absolute Neutrophils Absolute Lymphocytes Absolute Monocytes Absolute Eosinophils Absolute Basophils RBC Morphology VBG pH Cancelled VBG pCO2 Cancelled VBG pO2 Cancelled VBG HCO3 Cancelled VBG Total CO2 Cancelled VBG O2 Saturation Cancelled VBG Base Excess Cancelled VBG Lactate Sodium 140 Cancelled Potassium 5.0 D Cancelled Chloride 103 Cancelled Carbon Dioxide 15.3 L Cancelled Anion Gap 21.7 H Cancelled BUN 34 H Cancelled Creatinine 2.5 H Cancelled Est GFR (CKD-EPI 2020) 22.57 Cancelled Glucose 527 H* Cancelled Calcium 8.3 L Cancelled Magnesium 1.8 Cancelled Procalcitonin Urine Color Urine Clarity Urine pH Ur Specific [place] Urine Protein Urine Ketones Urine Blood Urine Nitrite Urine Bilirubin Urine Urobilinogen Ur Leukocyte Esterase Urine Glucose 06/15/22 06/15/22 06/15/22 10:42 10:46 10:46 WBC RBC Hgb Hct MCV MCH MCHC RDW Plt Count 181 MPV Immature Gran % Neutrophils % Lymphocytes % Monocytes % Eosinophils % Basophils % Nucleated RBC % Absolute Neutrophils Absolute Lymphocytes Absolute Monocytes Absolute Eosinophils Absolute Basophils RBC Morphology VBG pH 7.24 L VBG pCO2 30 L VBG pO2 58 VBG HCO3 13 L VBG Total CO2 12 L VBG O2 Saturation 88 VBG Base Excess -14 L VBG Lactate 1.4 Sodium Potassium Chloride Carbon Dioxide Anion Gap BUN Creatinine Est GFR (CKD-EPI 2020) Glucose Calcium Magnesium Procalcitonin Urine Color Urine Clarity Urine pH Ur Specific [place] Urine Protein Urine Ketones Urine Blood Urine Nitrite Urine Bilirubin Urine Urobilinogen Ur Leukocyte Esterase Urine Glucose
[2022-06-15 18:15] LABS: BE (Venous) -7 mmol/L (-2-3); HCO3 (Venous) 20 mmol/L (23-28); O2 Sat (Venous) 91 %; TCO2 (Venous) 18 mmol/L (24-29); pCO2 (Venous) 40 mmHg (41-51); pO2 (Venous) 60 mmHg
[2022-06-15] MEDS: DEXTROSE 5%-0.45% SALINE 1,000 ML 125 ML IV (21:00)
[2022-06-15] MEDS: Clotrimazole 1% 15 GM TUBE TP (21:21)
[2022-06-15 22:39] LABS: BUN 33 mg/dL (7-18); CREATININE 2.8 mg/dL (0.55-1.02); Calcium 8.1 mg/dL (8.5-10.1); Chloride 111 mmol/L (98-107); Glucose 116 mg/dL (74-106); Magnesium 1.7 mg/dL (1.8-2.4); Potassium 3.9 mmol/L (3.5-5.1); Sodium 147 mmol/L (136-145)
[2022-06-16] VITALS (49 sets, daily range): BP systolic 84–175; BP diastolic 46–134; PULSE 57–103; RESP 13–23; TEMP 36.6–37.5; O2SAT 89–98
[2022-06-16] MEDS: PIPERACILLIN/TAZO 2.25 GM in Normal Saline 50 ML IVPB ×3 (00:19→13:58)
[2022-06-16 02:10] LABS: Anion Gap 8.4 mmol/L (3-11); BUN 31 mg/dL (7-18); CO2 25.6 mmol/L (21.0-32.0); CREATININE 2.7 mg/dL (0.55-1.02); Calcium 8.1 mg/dL (8.5-10.1); Chloride 110 mmol/L (98-107); Estimated GFR 20.58 (mL/min/1.73m2); Glucose 145 mg/dL (74-106); Magnesium 1.7 mg/dL (1.8-2.4); Sodium 144 mmol/L (136-145)
[2022-06-16] MEDS: POTASSIUM CHLORIDE/0.9% NACL 1,000 ML 125 MEQ IV (04:16)
[2022-06-16] MEDS: DEXTROSE 5%-0.45% SALINE 1,000 ML 125 ML IV (05:39)
[2022-06-16] MEDS: INSULIN REGULAR IN 0.9 % NACL 100 UNIT/100 ML BAG IV (05:39)
[2022-06-16 05:41] LABS: Abs Immature Grans 0.02 10^3/uL (0.0-0.06); Absolute Basophil Count 0.03 10^3/uL (0.0-0.2); Absolute Eosinophil Count 0.14 10^3/uL (0.0-0.7); Absolute Lymphocyte Count 3.25 10^3/uL (1.2-3.4); Absolute Monocyte Count 0.77 10^3/uL (0.1-0.8); Absolute Neutrophil Count 6.61 10^3/uL (1.2-6.7); Basophils % 0.3; Eosinophils % 1.3; HCT 32.9 % (36.0-46.0); Immature Grans % 0.2; MCH 27.4 pg (27.0-33.0); MCHC 31.9 % (32.0-36.0); MCV 86 fL (80-95); MPV 9.7 fL (8.0-11.0); Monocytes % 7.1; Neutrophils % 61.1; Platelet Count 201 10^3/uL (130-400); RBC 3.83 10^6/uL (3.93-5.22); RDW 15.9 % (11.7-14.6); RDW-SD 49.7 fL; WBC 10.82 10^3/uL (4.4-10.8)
[2022-06-16 05:53] LABS: HGB 10.5 g/dL (11.2-15.7)
[2022-06-16 05:54] LABS: Anion Gap 8.4 mmol/L (3-11); BUN 28 mg/dL (7-18); CO2 25.6 mmol/L (21.0-32.0); CREATININE 2.6 mg/dL (0.55-1.02); Calcium 7.8 mg/dL (8.5-10.1); Chloride 110 mmol/L (98-107); Estimated GFR 21.54 (mL/min/1.73m2); Glucose 118 mg/dL (74-106); Magnesium 1.6 mg/dL (1.8-2.4); Potassium 3.8 mmol/L (3.5-5.1); Sodium 144 mmol/L (136-145)
[2022-06-16 06:33] LABS: HCT 33.6 % (36.0-46.0); HGB 10.9 g/dL (11.2-15.7); MCH 27.7 pg (27.0-33.0); MCHC 32.4 % (32.0-36.0); MCV 85 fL (80-95); MPV 9.5 fL (8.0-11.0); Platelet Count 198 10^3/uL (130-400); RBC 3.94 10^6/uL (3.93-5.22); RDW-SD 49.7 fL
[2022-06-16] MEDS: Insulin Glargine 300 UNITS/3 ML PEN 20 UNITS SC (08:03)
[2022-06-16] MEDS: Ondansetron 4 MG TAB 2 MG PO (08:51)
[2022-06-16] MEDS: Insulin Aspart 300 UNITS/3 ML PEN SC ×8 (08:51→22:16)
--- NOTE | 2022-06-16 09:38 | CMPROGNOTE_ITS ---
- If Service Date Differs Date of service: 06/16/22 Time of Service: 09:39 Care Management Progress Note S/O: Josefina remains inpatient, planning for [facility] Crisis screening once medically cleared due to concern for increased psychotic symptoms described as delusions r/t medical treatment which is complicating patient's safety and outcomes. Edwin [facility] assessed Josefina, and met with this assembly instructions writer and Dr. Santos, and spoke with Josefina's as well. Edwin reports anticipating EE is likely to be sought once Josefina is medically cleared. CM continues to follow. A: 52 year old female admitted to [facility] 06/14/22 for DKA, OMID, CKD, Medication noncompliance P: Josefina is being treated and closely monitored in the ICU. This is her forth admission in the last three weeks for DKA, possibly due in part to her mental health issues. She will need a mental health evaluation and possible treatment. Josefina will follow up with her PCP and plan of care and transport with family if discharged directly home. CM will provide support to Josefina and her discharge needs.
[2022-06-16] MEDS: Multivitamin TAB 1 TAB PO (10:39)
[2022-06-16] MEDS: ARIPiprazole 2 MG TAB PO (10:40)
[2022-06-16] MEDS: Gabapentin 100 MG CAP PO ×3 (10:40→20:19)
[2022-06-16] MEDS: Folic Acid 1 MG TAB PO (10:41)
[2022-06-16] MEDS: Docusate Sodium 100 MG CAP PO (10:41)
[2022-06-16] MEDS: Thiamine 100 MG TAB PO (10:41)
[2022-06-16] MEDS: Cholecalciferol (Vitamin D3) 1,000 UNIT TAB 1000 UNITS PO (10:41)
[2022-06-16] MEDS: Sucralfate 1 GM TAB PO ×3 (10:42→20:19)
[2022-06-16] MEDS: Nicotine 14 MG/24 HR PATCH TD (10:42)
[2022-06-16] MEDS: Atorvastatin 20 MG TAB PO (10:42)
[2022-06-16] MEDS: Normal Saline Flush 10 ML SYR IVP ×4 (10:43→20:20)
[2022-06-16] MEDS: MAGNESIUM SULFATE 2 GM/50 ML BAG IVPB (10:43)
[2022-06-16] MEDS: Normal Saline 500 ML IV (13:59)
--- NOTE | 2022-06-16 15:28 | W.PM.PROGNOT ---
Date of Service Date of service: 06/16/22 Time of Service: 08:40 Assessment and Plan Assessment and plan (1) DKA (diabetic ketoacidosis): Status: Resolved Assessment and plan: Transitioned to basal bolus insulin. Titrate insulins to target sugars of 140-180. UA negative. CXR negative. COVID-19 PCR negative. Unfortunately, it appears that this admission is the product of a suicide attempt. Mental health is consulted and is considering involuntary hospitalization at the time of medical discharge. (2) Hypotension: Status: Resolved Assessment and plan: In setting of dehydration/DKA, zyprexa as was the case yesterday, but also possibly sepsis though we never found a source of infection. Ok to d/c IVF and IV abx. Off of vasopressors.Will monitor in the ICU tonight to ensure that BP remains table. Change IV abx to augmentin. (3) Suicide attempt: Status: Acute Assessment and plan: As above Evaluated by mental health and will likely require inpatient involuntary hospitalization. (4) Fever: Status: Acute Assessment and plan: As above (5) Helicobacter pylori gastritis: Status: Acute Assessment and plan: I am not sure if the patient was compliant with oral abx. She states taht she did not fill those prescriptions because the hospital did not give them to her. I do clearly see those antibiotics prescribed on 2 admissions ago. She may benefit from resumption of the whole regimen, but will await until she can reliably tolerate a diet. (6) Alcoholism: Status: Chronic Assessment and plan: Again, unclear how recently the patient last drank. No evidence of w/d at this time. The patient is not admitting to drinking alcohol. (7) Substance abuse: Status: Chronic Assessment and plan: Patient is a client of [facility] on methadone. methadone was held today due to somnolence. (8) Schizophrenia: Status: Chronic Assessment and plan: I suspect that this is a major contributor to patient's noncompliance with medication and that admissions for DKA will keep recurring unless her psychiatric issues are properly addressed. As above - mental health is now involved. Will seek psychiatric placement. There is also a suicidal ideation component. The patient's has previously verbalized to us that the patient believes that insulin is poison and has other delusional ideas about her medications. Qualifiers: Schizophrenia type: schizophreniform disorder Qualified Code(s): F20.81 - Schizophreniform disorder (9) DVT prophylaxis: Status: Acute Assessment and plan: SCDS. Hold chemical DVT ppx given recent GI bleeding (10) Discharge planning issues: Status: Acute Assessment and plan: Full code Keep in ICU. Total Critical Care Time 35 minutes. Subjective Subjective Interval history since last seen: Josefina was mildly nauseated this morning. Her DKA had resolved and she was being transitioned to basal bolus insulin. She endorsed feeling a little dizzy in bed, denied chest pain, shortness of breath, abdominal pain. Required norepinephrine yesterday and overnight after receiving zyprexa; off of norepinephrine since this morning. She states that she was not taking the antibiotics prescribed for her H. pylori gastritis because the hospital had not sent her home with any. Exam Narrative Exam Narrative: General: Obese female who is alert in bed HEENT: EOMI, MMM Cardiovascular: RRR, no m/r/g Lungs: CTAB Gastrointestinal: soft, nontender, nondistended Genitourinary: has a gandara Extremities: no edema BLEs Objective Last Vital Signs Temp 37.3 C 06/16/22 03:06 Pulse 58 L 06/16/22 06:31 Resp 13 06/16/22 03:01 BP 119/59 L 06/16/22 06:31 Pulse Ox 94 06/16/22 06:31 Laboratory Results - last 24 hr 06/15/22 06/15/22 06/15/22 17:40 18:00 22:00 WBC RBC Hgb Hct MCV MCH MCHC RDW Plt Count MPV Immature Gran % Neutrophils % Lymphocytes % Monocytes % Eosinophils % Basophils % Nucleated RBC % Absolute Neutrophils Absolute Lymphocytes Absolute Monocytes Absolute Eosinophils Absolute Basophils VBG pH 7.30 L VBG pCO2 40 L VBG pO2 60 VBG HCO3 20 L VBG Total CO2 18 L VBG O2 Saturation 91 VBG Base Excess -7 L Sodium 144 147 H Potassium 4.0 D 3.9 Chloride 108 H 111 H Carbon Dioxide 20.2 L 25.0 Anion Gap 15.8 H 11.0 BUN 36 H 33 H Creatinine 3.0 H 2.8 H Est GFR (CKD-EPI 2020) 18.14 19.70 Glucose 263 H 116 H Calcium 8.1 L 8.1 L Magnesium 1.8 1.7 L 06/16/22 06/16/22 06/16/22 01:52 05:30 05:30 WBC 10.82 H RBC 3.83 L Hgb 10.5 L D Hct 32.9 L MCV 86 MCH 27.4 MCHC 31.9 L RDW 15.9 H Plt Count 201 MPV 9.7 Immature Gran % 0.2 Neutrophils % 61.1 Lymphocytes % 30.0 Monocytes % 7.1 Eosinophils % 1.3 Basophils % 0.3 Nucleated RBC % 0.0 Absolute Neutrophils 6.61 Absolute Lymphocytes 3.25 Absolute Monocytes 0.77 Absolute Eosinophils 0.14 Absolute Basophils 0.03 VBG pH VBG pCO2 VBG pO2 VBG HCO3 VBG Total CO2 VBG O2 Saturation VBG Base Excess Sodium 144 144 Potassium 4.0 3.8 Chloride 110 H 110 H Carbon Dioxide 25.6 25.6 Anion Gap 8.4 8.4 BUN 31 H 28 H Creatinine 2.7 H 2.6 H Est GFR (CKD-EPI 2020) 20.58 21.54 Glucose 145 H 118 H Calcium 8.1 L 7.8 L Magnesium 1.7 L 1.6 L 06/16/22 06:09 WBC 10.60 RBC 3.94 Hgb 10.9 L Hct 33.6 L MCV 85 MCH 27.7 MCHC 32.4 RDW 16.0 H Plt Count 198 MPV 9.5 Immature Gran % Neutrophils % Lymphocytes % Monocytes % Eosinophils % Basophils % Nucleated RBC % Absolute Neutrophils Absolute Lymphocytes Absolute Monocytes Absolute Eosinophils Absolute Basophils VBG pH VBG pCO2 VBG pO2 VBG HCO3 VBG Total CO2 VBG O2 Saturation VBG Base Excess Sodium Potassium Chloride Carbon Dioxide Anion Gap BUN Creatinine Est GFR (CKD-EPI 2020) Glucose Calcium Magnesium Multi-Disciplinary Checklist Lines/Tubes CENTRAL LINE: yes, Central Line Day#: 1 ARTERIAL LINE: no GANDARA: no ENDOTRACHEAL TUBE: no ICU Maintenance GLUCOSE 140-180mg/dL: no, Reason/Intervention: titrating insulins up NUTRITION AT GOAL: yes PRESSURE ULCER: no RESTRAINTS: no ANTIBIOTICS(if yes, consider Stewardship): Yes Social Issues FAMILY UPDATED: yes PT/OT: no, Reason/Intervention: Not requiring GOALS/DISPOSITION/WATER METER MECHANIC: yes CODE STATUS: Full Prophylaxis DVT PROPHYLAXIS: yes GI PROPHYLAXIS: yes, Indication: h/o recent GI bleeding/H. pylori gastritis
--- NOTE | 2022-06-16 15:48 | CHAPLAIN ---
Nani was sitting up in bed when I visited. She asked me about a large print Bible. I don't have a large print one, but brought it what I have she thought she'd be able to read it. Hospitalist indicated at morning meeting that Nani not taking her diabetic medication could be interpreted as a suicide attempt. This is her fourth admission for this in three weeks. Nani has said that her insulin is stolen or lost. Hospitalist said that Nani has indicated that she wanted to be with her son who of an overdose five years ago. Someone from [facility] arrived for a consult with Nani while I was leaving. Chandan is very concerned about Nani and some of the unrealistic things she is telling him about wanting to [place] and being bothered by demons.
[2022-06-16 17:39] LABS: Anion Gap 6.1 mmol/L (3-11); BUN 31 mg/dL (7-18); CO2 24.9 mmol/L (21.0-32.0); CREATININE 2.1 mg/dL (0.55-1.02); Calcium 7.8 mg/dL (8.5-10.1); Chloride 108 mmol/L (98-107); Estimated GFR 27.83 (mL/min/1.73m2); Glucose 306 mg/dL (74-106); Potassium 4.3 mmol/L (3.5-5.1); Sodium 139 mmol/L (136-145)
[2022-06-16] MEDS: Amoxicillin 500/Clav. 125 TAB PO (20:18)
[2022-06-16] MEDS: Pantoprazole 40 MG VIAL IVP (20:19)
[2022-06-16] MEDS: Insulin Glargine 300 UNITS/3 ML PEN 10 UNITS SC (22:14)
[2022-06-17] VITALS (19 sets, daily range): BP systolic 132–163; BP diastolic 63–92; PULSE 59–77; RESP 6–20; TEMP 36.7; O2SAT 99–100
[2022-06-17 06:41] LABS: Absolute Basophil Count 0.03 10^3/uL (0.0-0.2); Absolute Eosinophil Count 0.16 10^3/uL (0.0-0.7); Absolute Lymphocyte Count 1.93 10^3/uL (1.2-3.4); Absolute Monocyte Count 0.33 10^3/uL (0.1-0.8); Absolute Neutrophil Count 2.21 10^3/uL (1.2-6.7); Basophils % 0.6; Eosinophils % 3.4; HCT 32.4 % (36.0-46.0); HGB 10.6 g/dL (11.2-15.7); Lymphocytes % 41.4; MCH 27.4 pg (27.0-33.0); MCHC 32.7 % (32.0-36.0); MCV 84 fL (80-95); MPV 10.2 fL (8.0-11.0); Monocytes % 7.1; Neutrophils % 47.5; Platelet Count 152 10^3/uL (130-400); RBC 3.87 10^6/uL (3.93-5.22); RDW 16.1 % (11.7-14.6); RDW-SD 49.9 fL; WBC 4.66 10^3/uL (4.4-10.8)
[2022-06-17 06:58] LABS: Anion Gap 7.1 mmol/L (3-11); BUN 26 mg/dL (7-18); CO2 25.9 mmol/L (21.0-32.0); CREATININE 1.5 mg/dL (0.55-1.02); Calcium 8.3 mg/dL (8.5-10.1); Chloride 107 mmol/L (98-107); Estimated GFR 41.67 (mL/min/1.73m2); Glucose 297 mg/dL (74-106); Magnesium 2.2 mg/dL (1.8-2.4); Potassium 4.1 mmol/L (3.5-5.1); Sodium 140 mmol/L (136-145)
[2022-06-17 07:28] LABS: Procalcitonin 0.3 ng/mL
[2022-06-17] MEDS: Insulin Aspart 300 UNITS/3 ML PEN SC ×7 (08:47→20:22)
[2022-06-17] MEDS: Atorvastatin 20 MG TAB PO (09:19)
[2022-06-17] MEDS: ARIPiprazole 2 MG TAB PO (09:19)
[2022-06-17] MEDS: Amoxicillin 500/Clav. 125 TAB PO ×2 (09:19→20:22)
[2022-06-17] MEDS: Thiamine 100 MG TAB PO (09:21)
[2022-06-17] MEDS: Cholecalciferol (Vitamin D3) 1,000 UNIT TAB 1000 UNITS PO (09:21)
[2022-06-17] MEDS: Docusate Sodium 100 MG CAP PO (09:21)
[2022-06-17] MEDS: Folic Acid 1 MG TAB PO (09:21)
[2022-06-17] MEDS: Nicotine 14 MG/24 HR PATCH TD (09:22)
[2022-06-17] MEDS: Gabapentin 100 MG CAP PO ×3 (09:22→20:22)
[2022-06-17] MEDS: Multivitamin TAB 1 TAB PO (09:22)
[2022-06-17] MEDS: Sucralfate 1 GM TAB PO ×4 (09:24→20:21)
[2022-06-17] MEDS: Insulin Glargine 300 UNITS/3 ML PEN 30 UNITS SC (09:59)
--- NOTE | 2022-06-17 10:43 | W.PM.PROGNOT ---
Date of Service Date of service: 06/17/22 Time of Service: 10:00 Assessment and Plan Assessment and plan (1) DKA (diabetic ketoacidosis): Status: Resolved Assessment and plan: Off of insulin gtt since yesterday am. Uptitrate basal insulin and continue both carb coverage and SSI. UA negative. CXR negative. COVID-19 PCR negative. This admission is a result of the patient being noncompliant with insulin as a suicide attempt, per her . Mental health is consulted and is considering involuntary hospitalization at the time of medical discharge. (2) Hypotension: Status: Resolved Assessment and plan: In setting of dehydration/DKA, zyprexa side effect, but also possibly sepsis though we never found a source of infection. Stable off of pressors, IVF and IV antibiotics. Continue empiric augmentin. Since she seems to be tolerating PO better today, consider resuming her H. pylori abx. (3) Suicide attempt: Status: Acute Assessment and plan: As above Evaluated by mental health and will require inpatient involuntary hospitalization. (4) Fever: Status: Acute Assessment and plan: As above (5) Helicobacter pylori gastritis: Status: Acute Assessment and plan: Not compliant with oral abx at home. She states that she did not fill those prescriptions because the hospital did not give them to her. I do clearly see those antibiotics prescribed on 2 admissions ago. As above - planning on resuming/re-initiating her course today. (6) Alcoholism: Status: Chronic Assessment and plan: Again, unclear how recently the patient last drank. No evidence of w/d at this time. The patient is not admitting to drinking alcohol. (7) Substance abuse: Status: Chronic Assessment and plan: Patient is a client of [facility] on methadone. Resume methadone today. (8) Schizophrenia: Status: Chronic Assessment and plan: I suspect that this is a major contributor to patient's noncompliance with medication and that admissions for DKA will keep recurring unless her psychiatric issues are properly addressed. As above - mental health is now involved. There is also a suicidal ideation/attempt component. Will seek psychiatric placement on involuntary basis since the patient is not agreeing on voluntary basis. The patient's has previously verbalized to us that the patient believes that insulin is poison and has other delusional ideas about her medications. Qualifiers: Schizophrenia type: schizophreniform disorder Qualified Code(s): F20.81 - Schizophreniform disorder (9) DVT prophylaxis: Status: Acute Assessment and plan: SCDS. Hold chemical DVT ppx given recent GI bleeding (10) Discharge planning issues: Status: Acute Assessment and plan: Full code Transfer out of ICU to med surg. Patient is medically cleared for psychiatric placement. Subjective Subjective Interval history since last seen: Josefina thinks she is withdrawing from methadone and would like to have it resumed. She says she has been sneezing. She denies dizziness, chest pain, shortness of breath, nausea. She says the lower portion of her abdomen hurts. She states she does not want to go to a psychiatric facility. Exam Narrative Exam Narrative: General: Obese female, A&Ox3, very interactive this morning HEENT: EOMI, MMM Cardiovascular: RRR, no m/r/g Lungs: CTAB Gastrointestinal: soft, nontender, nondistended Genitourinary: has a gandara Extremities: no edema BLEs Objective Last Vital Signs Temp 36.7 C 06/17/22 10:33 Pulse 74 06/17/22 10:33 Resp 10 L 06/17/22 10:33 BP 163/92 H 06/17/22 10:33 Pulse Ox 99 06/17/22 10:33 Laboratory Results - last 24 hr 06/16/22 06/17/22 06/17/22 17:20 05:25 05:25 WBC 4.66 RBC 3.87 L Hgb 10.6 L Hct 32.4 L MCV 84 MCH 27.4 MCHC 32.7 RDW 16.1 H Plt Count 152 MPV 10.2 Immature Gran % 0.0 Neutrophils % 47.5 Lymphocytes % 41.4 Monocytes % 7.1 Eosinophils % 3.4 Basophils % 0.6 Nucleated RBC % 0.0 Absolute Neutrophils 2.21 Absolute Lymphocytes 1.93 Absolute Monocytes 0.33 Absolute Eosinophils 0.16 Absolute Basophils 0.03 Sodium 139 140 Potassium 4.3 4.1 Chloride 108 H 107 Carbon Dioxide 24.9 25.9 Anion Gap 6.1 7.1 BUN 31 H 26 H Creatinine 2.1 H 1.5 H Est GFR (CKD-EPI 2020) 27.83 41.67 Glucose 306 H 297 H Calcium 7.8 L 8.3 L Magnesium 2.2 Procalcitonin 06/17/22 05:25 WBC RBC Hgb Hct MCV MCH MCHC RDW Plt Count MPV Immature Gran % Neutrophils % Lymphocytes % Monocytes % Eosinophils % Basophils % Nucleated RBC % Absolute Neutrophils Absolute Lymphocytes Absolute Monocytes Absolute Eosinophils Absolute Basophils Sodium Potassium Chloride Carbon Dioxide Anion Gap BUN Creatinine Est GFR (CKD-EPI 2020) Glucose Calcium Magnesium Procalcitonin 0.3
--- NOTE | 2022-06-17 13:22 | NUR.NOTE ---
Nursing Note: Mental health worker meets with patient.
--- NOTE | 2022-06-17 13:35 | CMPROGNOTE_ITS ---
- If Service Date Differs Date of service: 06/17/22 Time of Service: 13:35 Care Management Progress Note S/O: Josefina was evaluated by Aurea at [facility] and is now EE status. Josefina has 1:1 observation at this time. CM will work with primary RN, RN Nursing Meat Carver and [facility] to determine if 1:1 CPSO, is indicated per policy. In the meantime, [facility] will access twice daily until inpatient psych placement is found. Second cert. by [facility] is planned for 4pm. 1515: CM spoke with Aurea at [facility], and she agrees that Josefina does not need a 1:1 CPSO at this time, per Hospital Policy. Although, a room with video monitoring is preferred. CM reviewed with pts primary RN Rachael who is also in agreement. Rachael discussed this plan with Rhianna/RN Meat Carver. Safety plan considerations will be reviewed with team again tomorrow. A: 52 year old female admitted to [facility] 06/14/22 for DKA, OMID, CKD, Medication noncompliance. P: This is Josefina's 4th admission in the last three weeks for DKA. Yamilexs mental health issues and delusions are interfering with her ability to take her medication, which in Josefina's case is life threatening. Per [facility] clinician, Josefina denies SI/HI and will remain at [facility] involuntary, until inpatient psych treatment is found. [facility] will send referrals later today. CM will continue to follow. - Status Status: Involuntary - Reason for Wait Reason for Wait: Inpatient Admission
--- NOTE | 2022-06-17 13:35 | PDOC.CMPRO ---
- If Service Date Differs Date of service: 06/17/22 Time of Service: 13:35 Care Management Progress Note S/O: Josefina was evaluated by Aurea at [facility] and is now EE status. Josefina has 1:1 observation at this time. CM will work with primary RN, RN Nursing Public Health Aide and [facility] to determine if 1:1 CPSO, is indicated per policy. In the meantime, [facility] will access twice daily until inpatient psych placement is found. Second cert. by [facility] is planned for 4pm. 1515: CM spoke with Aurea at [facility], and she agrees that Josefina does not need a 1:1 CPSO at this time, per Hospital Policy. Although, a room with video monitoring is preferred. CM reviewed with pts primary RN Rachael who is also in agreement. Rachael discussed this plan with Rhianna/RN Public Health Aide. Safety plan considerations will be reviewed with team again tomorrow. A: 52 year old female admitted to [facility] 06/14/22 for DKA, OMID, CKD, Medication noncompliance. P: This is Josefina's 4th admission in the last three weeks for DKA. Yamilexs mental health issues and delusions are interfering with her ability to take her medication, which in Josefina's case is life threatening. Per [facility] clinician, Josefina denies SI/HI and will remain at [facility] involuntary, until inpatient psych treatment is found. [facility] will send referrals later today. CM will continue to follow. - Status Status: Involuntary - Reason for Wait Reason for Wait: Inpatient Admission
--- NOTE | 2022-06-17 13:51 | NUR.NOTE ---
Responsibility of handling this patient is given to Carolee Ochoa RN since now there is only two patients on the unit.Nursing Note:
--- NOTE | 2022-06-17 14:17 | PDOC.CMSAFE ---
- If Service Date Differs Date of service: 06/17/22 Time of Service: 14:17 Care Management Safety Plan Status: Involuntary - Reason for Wait Reason for Wait: Inpatient Admission Safety plan has been established to meet the needs of the patient, and consideration of the care team, to adhere to patient goals, identify restrictions based on behavioral status, address nutrition, and determine allowed personal belongings, tools for hygiene and personal care. Determine level of activity including ambulation, level of supervision, visitors, and determine privileges based on behaviors and level of engagement by pt. 1430 CM spoke with Josefina's primary RN Rachael, who states Josefina is agreeable to taking her medications and has been appropriate and easy to redirect. At this time, it is felt that safety planning should focus on situational discretions and be subject to limitations, if there is a change in Yamilexs behavior or concern for harm of self or others. CM reviewed with RN Procurement Agent Rhianna. CM will seek clarification from Aurea at [facility] to determine if a 1:1, CPSO is needed. 1515 CM spoke with Aurea at [facility], and she agrees that Josefina does not need a 1:1 CPSO at this time, per Hospital Policy. Although, a room with video monitoring is preferred. CM reviewed with pts primary RN Rachael who is also in agreement. Rachael discussed this plan with Rhianna. Safety plan considerations will be reviewed with team again tomorrow. SAFETY PLAN: 1. Per [facility] Records And Tape Recordings Engineer, no sx if SI/HI. May have personal belongings and clothes at RN discretion. 2. Will remain in room under direct supervision of one-on-one staff at all times provided by CPSO, IRRIGATION MANAGER, LITHOGRAPHIC ETCHER director employment. 3. May have meal tray and silver wear at RN discretion. 4. Follow [facility] Management of the Admitted Behavioral Health Patient policy. 5. Comfort bath system only. 6. May have personal belongings at RN discretion. 7. Visitors: 8. Activities: television and other activities at RN discretion. 9. Bathroom privileges with escort. 10. Phone: Limited to legal contacts at this time, [facility] phone and at RN discretion. 11. Due to INVOLUNTARY status, patient is being held at [facility] by the Department of Mental Health ([facility]). A 2nd certification by [facility] Psychiatrist is pending. Staff will provide de-escalation support (CPI) as needed. If patient wishes to leave [facility], staff will contact [facility] Crisis Screener ([phone]) and On-Call Extension Professor ([phone]) as soon as possible. In the event of elopement, notify [facility] Police ([phone]). Patient is currently involuntarily at [facility]. [facility] Frontline Lead Miner will continue seeking placement. Please contact the Coating Engineer Extension Professor ([phone]) for any needed changes to Safety Plan. Safety plan has been provided to interdepartmental care team. Patient will be transported by [employer] at time of discharge.
[2022-06-17] MEDS: Methadone Liquid 10 MG/ML 22 MG PO (14:36)
[2022-06-17] MEDS: Pantoprazole 40 MG VIAL IVP (17:00)
--- NOTE | 2022-06-17 17:51 | PDOC.MHCN_ITS ---
Date of service: 06/17/22 Time of Service: 13:05 Mental Health Emergency Note Release [facility] release signed:: No Reason for Visit Client arrived at [facility] on 06/14/2022 via [place] due to ketoacidosis. Client was placed on involuntary status yesterday due to her inability to care for herself. Client has been at [facility] 4x in the past month due to ketoacidosis and repeatedly not taking her insulin as prescribed. This telegraphic typewriter installer met with client today for [facility] daily assessment. In the last 2 weeks has the pt presented for ES prior to today?: Yes, presented at (Client has presented numerous times due to ketoacidosis and the inability to care for herself and tend to her diabeties. ) [facility] Client Information Client is: Adult Outpatient Well Housed: No,status: Not homeless, Unstable housing Non Suicidal Self Injury Current: Yes, Client has not been tending to her diabetes and refusing to take medications stating that they were either stolen or that they were poisoned. History: No Safety Risk/Harm to Self or Others Current Ideation to Harm Self or Others: No Risk: Does risk to harm exist?: yes. Risk: High Risk Duty to warn indicated: No Asssessment/Mental Status Appearance: Unremarkable Attitude: Cooperative Behavior: Unremarkable Speech: Normal Affect: Flat Mood: Stressed and Anxious Thought process: Unremarkable Hallucinations: No Delusions: No Attention: Unremarkable Perception: Not impaired Orientation: Fully orientated Memory: Intact Insight: Poor Judgement: Poor Neurovegetative Symptoms Sleep: Decrease (Client reports that she was unable to sleep last night only getting about 2 hours of sleep this morning. ) Appetitie: No change Interests: No change Energy: No change Libido: Not applicable Substance Use: ETOH dependence (Client reports that she used to drink twisted tea daily, however states that she is no longer going to drink anymore. ) Drug Issues: Other (Client is currently prescribed methadone. ) Do you use nicotine?: Yes Have you used substances in the last 7 days?: yes, Client reports that she drank alcohol on her birthday, however would not share how much she drank. Additional Issues: Assaultive/Threatening Behavior: No Medical Concerns: Yes Client engaged in active self harm w/weapon: No Threatening to run away: No Child reported abuse/neglect: No Voluntarily presenting for services: No Domestic violence is a concern: No Extreme Psychosis or extreme behavior is present: No Impression Client is hesitant to meet with this telegraphic typewriter installer, however is receptive to do so after a conversation was had with clients nurse. When this telegraphic typewriter installer asks client why she is at the hospital, she states: [place] [address] [place] and my insulin was stolen. This telegraphic typewriter installer asks conversation about her past hospitalizations this month due to ketoacidosis and she states: I have either lost it or it was stolen. This telegraphic typewriter installer asks client about mental health dx and she states: I am only diagnosed with depression and PTSD and I do not take any medication for it. Client reports that she feels like she needs treatment, however does not want to go inpatient. Client states that she will do anything on an outpatient basis. Client reports that her sleep has been poor, only sleeping about 2 hours last night. Client reports that her appetite has been good. Client appears to be presenting with delusional thinking, however states that she is open to seeking treatment. Plan/Disposition Recommended Disposition: Hospitalization (, [facility], [facility], and . ) facilities contacted. Plan: Client will remain at [facility] on involuntary status pending 2nd certification with psychiatrist from [facility] scheduled for later this afternoon. Referrals will be faxed to [facility], [facility], , and . Client will be re- assessed by a HP daily until placement is secured or client can be safety planned home. Person reported agreement to plan: No Reports/communication Outcome discussed with: ED/Personnel (Verbal passover given to [facility] patient care specialist Maryjane Matthews. )
[2022-06-18 03:27] VITALS: O2SAT 99
[2022-06-18 03:28] VITALS: BP 160/86; PULSE 64
[2022-06-18 06:42] LABS: Absolute Basophil Count 0.01 10^3/uL (0.0-0.2); Absolute Eosinophil Count 0.15 10^3/uL (0.0-0.7); Absolute Monocyte Count 0.29 10^3/uL (0.1-0.8); Absolute Neutrophil Count 1.51 10^3/uL (1.2-6.7); Basophils % 0.3; Eosinophils % 4.1; HCT 31.3 % (36.0-46.0); Lymphocytes % 46.4; MCH 27.2 pg (27.0-33.0); MCHC 31.9 % (32.0-36.0); MCV 85 fL (80-95); MPV 10.8 fL (8.0-11.0); Monocytes % 7.9; Neutrophils % 41.3; Platelet Count 132 10^3/uL (130-400); RBC 3.68 10^6/uL (3.93-5.22); RDW 15.4 % (11.7-14.6); RDW-SD 48.1 fL; WBC 3.66 10^3/uL (4.4-10.8)
[2022-06-18 06:54] LABS: Anion Gap 5.3 mmol/L (3-11); BUN 18 mg/dL (7-18); CO2 28.7 mmol/L (21.0-32.0); CREATININE 0.9 mg/dL (0.55-1.02); Calcium 8.7 mg/dL (8.5-10.1); Chloride 107 mmol/L (98-107); Estimated GFR 76.92 (mL/min/1.73m2); Glucose 226 mg/dL (74-106); Potassium 3.7 mmol/L (3.5-5.1); Sodium 141 mmol/L (136-145)
[2022-06-18] MEDS: ARIPiprazole 2 MG TAB PO (07:43)
[2022-06-18] MEDS: Sucralfate 1 GM TAB PO ×2 (07:43→11:35)
[2022-06-18] MEDS: Amoxicillin 500/Clav. 125 TAB PO (07:43)
[2022-06-18] MEDS: Atorvastatin 20 MG TAB PO (07:43)
[2022-06-18] MEDS: Gabapentin 100 MG CAP PO ×2 (07:44→15:40)
[2022-06-18] MEDS: Folic Acid 1 MG TAB PO (07:44)
[2022-06-18] MEDS: Cholecalciferol (Vitamin D3) 1,000 UNIT TAB 1000 UNITS PO (07:44)
[2022-06-18] MEDS: Clotrimazole 1% 15 GM TUBE TP (07:44)
[2022-06-18] MEDS: Docusate Sodium 100 MG CAP PO (07:44)
[2022-06-18] MEDS: Multivitamin TAB 1 TAB PO (07:45)
[2022-06-18] MEDS: Thiamine 100 MG TAB PO (07:45)
[2022-06-18] MEDS: Nicotine 14 MG/24 HR PATCH TD (07:45)
[2022-06-18] MEDS: Methadone Liquid 10 MG/ML 22 MG PO (08:15)
[2022-06-18] MEDS: Insulin Aspart 300 UNITS/3 ML PEN SC ×4 (08:19→13:49)
[2022-06-18] MEDS: Insulin Glargine 300 UNITS/3 ML PEN 30 UNITS SC (09:30)
--- NOTE | 2022-06-18 10:05 | CMSP_ITS ---
- If Service Date Differs Date of service: 06/18/22 Time of Service: 10:05 Care Management Safety Plan Status: Voluntary - Reason for Wait Reason for Wait: Inpatient Admission Safety plan has been established to meet the needs of the patient, and consideration of the care team, to adhere to patient goals, identify restrictions based on behavioral status, address nutrition, and determine allowed personal belongings, tools for hygiene and personal care. Determine level of activity including ambulation, level of supervision, visitors, and determine privileges based on behaviors and level of engagement by pt. 06/17/22 KERVIN spoke with Aurea at [facility], and she agrees that Josefina does not need a 1:1 CPSO at this time, per Hospital Policy. Although, a room with video monitoring is preferred. KERVIN reviewed with pts primary RN Rachael who is also in agreement. Rachael discussed this plan with Rhianna. Second Cert. with [facility] did not pass. Per [facility], although Josefina appears to be presenting with delusional thinking, she is open to seeking treatment therefor is eligible to discharge home with a safety plan. Discharge planning and considerations are ongoing. SAFETY PLAN: 1. Per [facility] Concrete Panel Installer, no sx if SI/HI. May have personal belongings and clothes at RN discretion. 2. Will remain in room under direct supervision of one-on-one staff at all times provided by CPSO, KAN, DECK AND HULL ASSEMBLER coordinator of genetic services. 3. May have meal tray and silver wear at RN discretion. 4. Follow [facility] Management of the Admitted Behavioral Health Patient policy. 5. Comfort bath system only. 6. May have personal belongings at RN discretion. 7. Visitors: 8. Activities: television and other activities at RN discretion. 9. Bathroom privileges with escort. 10. Phone: Limited to legal contacts at this time, via [facility] phone and at RN discretion. 11. Due to INVOLUNTARY status, patient is being held at [facility] by the Department of Mental Health (DM). A 2nd certification by [facility] Psychiatrist is pending. Staff will provide de-escalation support (CPI) as needed. If patient wishes to leave [facility], staff will contact [facility] Crisis Screener ([phone]) and On-Call Competitive Intelligence Manager ([phone]) as soon as possible. In the event of elopement, notify [facility] Police ([phone]). Patient is currently involuntarily at [facility]. [facility] Frontline Integration Assistant will continue seeking placement. Please contact the Maintenance Technician Competitive Intelligence Manager ([phone]) for any needed changes to Safety Plan. Safety plan has been provided to interdepartmental care team. Patient will be transported by radiation / chemistry technician at time of discharge.
--- NOTE | 2022-06-18 10:17 | CMPROGNOTE_ITS ---
- If Service Date Differs Date of service: 06/18/22 Time of Service: 10:17 Care Management Progress Note S/O: Second Cert. with [facility] did not pass. Per [facility], although Josefina appears to be presenting with delusional thinking, she is open to seeking treatment therefor is eligible to discharge home with a safety plan. [facility] will evaluate Josefina this morning. Discharge considerations surrounding medication compliance has been reviewed with [facility]. CM will continue to follow. 1420: CM seeking clarification: Inpt Psych referral status and discharge plan to follow up with inpatient psych if patient is able to safety plan home. [address] now in [address] with [facility] per Circular Ripsaw Operator Aurea. Josefina is discharged home via private vehicle with friend Augusto Obrien. [facility] agrees to go to Kareen's home tomorrow to help with her meds, as there is some question about what meds she has and what meds she needs. Need for refills should be discussed with her PCP. Josefina also agrees to seek voluntary treatment as an outpatient and will follow up with [facility] as outlined in her safety plan. Inpatient referrals to [facility], [facility], and [facility] were not faxed during this admission in consideration of patients choice to seek voluntary treatment as an outpatient. A: 52 year old female admitted to [facility] 06/14/22 for DKA, OMID, CKD, Medication noncompliance. P: This is Josefina's 4th admission in the last three weeks for DKA. Josefina's mental health issues and delusions are interfering with her ability to take her medication, which in Josefina's case is life threatening. Per [facility] clinician, Josefina denies SI/HI and will remain at [facility] voluntarily until safety plan is es tablished with [facility], while waiting for inpatient psych treatment. [facility] faxed [facility], [facility], [facility], and [facility]. CM will continue to follow. - Status Status: Voluntary - Reason for Wait Reason for Wait: Inpatient Admission
--- NOTE | 2022-06-18 10:17 | PDOC.CMPRO ---
- If Service Date Differs Date of service: 06/18/22 Time of Service: 10:17 Care Management Progress Note S/O: Second Cert. with [facility] did not pass. Per [facility], although Josefina appears to be presenting with delusional thinking, she is open to seeking treatment therefor is eligible to discharge home with a safety plan. [facility] will evaluate Josefina this morning. Discharge considerations surrounding medication compliance has been reviewed with [facility]. CM will continue to follow. 1420: CM seeking clarification: Inpt Psych referral status and discharge plan to follow up with inpatient psych if patient is able to safety plan home. 1530 safety plan is now in place with [facility] per Diet Consultant Aurea. Josefina is discharged home via private vehicle with friend Augusto Obrien. [facility] agrees to go to Kareen's home tomorrow to help with her meds, as there is some question about what meds she has and what meds she needs. Need for refills should be discussed with her PCP. Josefina also agrees to seek voluntary treatment as an outpatient and will follow up with [facility] as outlined in her safety plan. [place] [facility] [facility], [facility], and [facility] were not faxed during this admission in consideration of patients choice to seek voluntary treatment as an outpatient. A: 52 year old female admitted to [facility] 06/14/22 for DKA, OMID, CKD, Medication noncompliance. P: This is Josefina's 4th admission in the last three weeks for DKA. Josefina's mental health issues and delusions are interfering with her ability to take her medication, which in Josefina's case is life threatening. Per [facility] clinician, Josefina denies SI/HI and will remain at [facility] voluntarily until safety plan is established with [facility], while waiting for inpatient psych treatment. [facility] faxed [facility], [facility], [facility], and [facility]. CM will continue to follow. - Status Status: Voluntary - Reason for Wait Reason for Wait: Inpatient Admission
--- NOTE | 2022-06-18 14:35 | PDOC.MHPN2 ---
Date of service: 06/17/22 Time of Service: 16:00 [facility] Emergency Note Release [facility] release signed:: No Reason for Visit Client presented to [facility] on 06/14/22 due to ketoacidosis. Client is seen this afternoon for 2nd certification with psychiatrist from [facility] Dr. Angulo. In the last 2 weeks has the pt presented for ES prior to today?: Yes, presented at (This is the clients 4th admission to [facility] due to ketoacidosis. ) [facility] ED Client Information Client is: Adult Outpatient Non Suicidal Self Injury Current: Yes, Client is not taking medications as prescribed and as a result ends up back in the ED. History: yes, Client is not taking diabetic medications, which results in hurting returning to the ED. Safety Risk/Harm to Self or Others Current Ideation to Harm Self or Others: No Risk: Does risk to harm exist?: yes. Risk: Moderate Risk Duty to warn indicated: No Asssessment/Mental Status Appearance: Unremarkable Attitude: Cooperative Behavior: Unremarkable Speech: Normal Affect: Flat and Cogruent with mood Mood: Stressed Thought process: Unremarkable Hallucinations: No Delusions: No Attention: Unremarkable Perception: Not impaired and Other Orientation: Fully orientated Memory: Intact Insight: Poor Judgement: Poor Neurovegetative Symptoms Sleep: No change Appetitie: No change Interests: No change Energy: No change Libido: Not applicable Substance Use: ETOH dependence Drug Issues: Other (Client is currently on maintenace medication- methadone. ) Do you use nicotine?: Yes Have you used substances in the last 7 days?: yes, Client reports that she drank alcohol on her birthday, undisclosed amount. Additional Issues: Assaultive/Threatening Behavior: No Medical Concerns: Yes Client engaged in active self harm w/weapon: No Threatening to run away: No Child reported abuse/neglect: No Voluntarily presenting for services: No Domestic violence is a concern: No Extreme Psychosis or extreme behavior is present: No Impression Client states during 2nd certification that she wants to seek voluntary treatment, however only wants to seek voluntary treatment if she is able to go home and tie up lose ends and gather belongings to bring to treatment with her. Dr. Angulo feels like since she is stating that she wants to seek voluntary treatment on her own terms he has no reason to hold her involuntarily. Resources Reosurces reviewed and given:: [facility] Plan/Disposition Recommended Disposition: Hospitalization (Client refusing voluntary treatment at this time. ) No. Plan: Client halle remain at [facility] over night and will be re-assessed by [facility] tomorrow with safety plan in place. Person reported agreement to plan: Yes Reports/communication Outcome discussed with: ED/Personnel (Verbal passover given to [facility] pediatric critical care nurse Maryjane Matthews. )
--- NOTE | 2022-06-18 15:32 | PDOC.CMDIS ---
- If Service Date Differs Date of service: 06/18/22 Time of Service: 15:32 LACE Index Scoring Tool - Questions: Length of Stay (in days): 4 - 6 Acuity (Admit via E.D.?): Yes Comorbidities: Diabetes w/o Complication, Chronic Pulmonary Disease E.D. Visits: 6 - Answers: Total Score: 14 Risk of Readmission: High Risk Care Management Discharge Reason for Hospitalization: DKA, OMID on CKD Discharge Plan: Josefina is medically ready for discharge per MD and a safety plan is now in place with [facility] per Green Building Materials Distributor Aurea. Josefina is discharged home via private vehicle with friend Augusto Obrien. [facility] agrees to go to Kareen's home tomorrow to help with her meds, as there is some question about what meds she has and what meds she needs. Need for refills should be discussed with her PCP. Josefina also agrees to seek voluntary treatment and will follow up with [facility] as outlined in her safety plan. Patient/Family Education Needs: Review discharge instructions, limitations, medications and plan to follow up with [facility] and community providers. Discuss ask me three. - MH Services (Omit if N/A) Current MH Services: [facility] (Safety Plan Established with [facility].)
--- NOTE | 2022-06-18 15:37 | DSE_ITS ---
DS: Diagnosis Discharge Diagnosis (1) DKA (diabetic ketoacidosis): Status: Acute Asessment and Plan: After agressive hydration and DKA insulin protocol, she was transitioned to basal/bolus insulin. (2) Suicide attempt: Status: Chronic Asessment and Plan: Mental health evaluated. Per their note of 06/18/22: Client states during 2nd certification that she wants to seek voluntary treatment, however only wants to seek voluntary treatment if she is able to go home and tie up lose ends and gather belongings to bring to treatment with her. Dr. Angulo feels like since she is stating that she wants to seek voluntary treatment on her own terms he has no reason to hold her involuntarily. Mental health evaluation and note of 06/19/22: Initiate psychotropic meds for depression. Pt. is agreeable to plan of follow up daily with [facility] crisis team to assure safety and when a bed becomes available she will accept it voluntarily. Should the patient decompensate or should she later refuse voluntary admission then the mental health team will initiate an application for an EE. The mental health evaluater felt it was improtant to establish a therapeutic alliance with the patient and engage her in her plan for voluntary admit. (3) Helicobacter pylori gastritis: Status: Chronic Asessment and Plan: Not compliant with oral abx at home. She states that she did not fill those prescriptions because the hospital did not give them to her. I do clearly see those antibiotics prescribed on 2 admissions ago. As above - planning on resuming/re-initiating her course today. (4) Schizophrenia: Status: Chronic Asessment and Plan: ?suspect that this is a major contributor to patient's noncompliance with medication and that admissions for DKA will keep recurring unless her psychiatric issues are properly addressed. As above - mental health is now involved. There is also a suicidal ideation/attempt component. Will seek psychiatric placement on involuntary basis since the patient is not agreeing on voluntary basis. The patient's has previously verbalized to us that the patient believes that insulin is poison and has other delusional ideas about her medications. Discharge Plan Disposition Patient Disposition: HOME Condition: Critical Condition: Improving Discharge Details Reason For Visit: DKA,OMID on CKD,Medication Noncompliance Admit Date/Time: 06/14/22 15:19 Admit Provider: Makayla Santos Attending Provider: Makayla Santos Primary Care Provider: Xin Stern Hospital Course Hospital Course: Ms Higginbotham is a 52 year old female with PMHx of IDDM with h/o DKA, noncompliant with insulin, who has had a h/o recent GI bleeding in setting of H. pylori gastritis, known anxiety and schizophrenia with delusional thinking documented on prior admissions who was brought to [facility] ED today with altered mental status, was found to be hyperglycemic with blood sugar of 952 by chemistry and in DKA with pH of 7.25 and an anion gap of 30. She was also found to be hypotensive with BPs of as low as? 65/38. She was written for IVF and an insulin drip. When she arrived to the ICU, she was noted to have a low grade temperature of 37.9, was arousable, but not able to provide history on my exam. Her glucometer reading was high. Her bloodwork could not be collected peripherally and a midline had to be placed, with results currently pending. She was restarted on insulin drip empirically based on her last known chemistries. Hospitalist admission to the ICU for management of DKA was requested. Mental Health to assess medications she has in her possession at home and will discuss any need for refills with her PCP. See Diagnosis F/U with PCP in 2-3 days ideally. Home Meds and New Rx's Prescriptions: Continued albuterol sulfate 2.5 mg/0.5 mL solution for nebulization 5 mg IH Q6H PRN (Reason: shortness of breath or wheezing) Qty: 30 2RF docusate sodium [Colace] 100 mg capsule 100 mg PO BID Qty: 180 3RF nicotine 14 mg/24 hr patch 24 hour 1 patch transdermal DAILY Qty: 28 0RF terbinafine HCl [Lamisil AT] 1 % cream 1 applic topical BID Qty: 30 1RF Rx Instructions: to affected area on feet epinephrine [EpiPen 2-Tejinder] 0.3 MG/0.3 ML auto-injector 0.3 mg IM ONCE Qty: 1 cholecalciferol (vitamin D3) 25 mcg (1,000 unit) capsule 25 mcg PO DAILY Qty: 90 3RF albuterol sulfate 90 mcg/actuation HFA aerosol inhaler 2 puff IH QID PRN (Reason: shortness of breath or wheezing) Qty: 3 4RF senna 8.6 mg capsule 8.6 mg PO BID PRN (Reason: constipation) Qty: 60 2RF folic acid 1 mg Tablet 1 mg PO QAM Qty: 30 0RF multivitamin [Multiple Vitamins] Tablet 1 tab PO QAM Qty: 30 0RF thiamine mononitrate (vit B1) [Vitamin B-1 (mononitrate)] 100 mg Tablet 100 mg PO QAM Qty: 30 0RF naloxone [Narcan] 4 mg/actuation spray,non-aerosol 4 mg intranasal Q2-3M PRNQty: 2 0RF Rx Instructions: spray 1 dose into ONE nostril; alternate nostrils w each dose until help arrives Discontinued amoxicillin 500 mg Capsule 1,000 mg PO BID 12 Days Qty: 48 0RF clarithromycin 500 mg tablet 500 mg PO BID 12 Days Qty: 24 0RF lorazepam 1 mg tablet bismuth subsalicylate [Stomach Relief] 262 mg/15 mL Suspension 524 mg PO QID Qty: 1200 1RF insulin glargine 100 unit/mL (3 mL) insulin pen 20 unit SC QAM Qty: 30 11RF ondansetron HCl 4 mg tablet 2 mg PO DAILY PRN (Reason: nausea and vomiting) sucralfate 1 gram Tablet 1 g PO AC & HS Qty: 120 0RF No Action aripiprazole [Abilify] 2 mg tablet 2 mg PO DAILY Qty: 90 0RF (DME) blood sugar diagnostic Strip 1 ea Miscellaneous qid and Qty: 400 3RF Rx Instructions: Check blood sugar three times a day (DME) blood-glucose meter Mis See Rx Instructions .Route Qty: 1 2RF Rx Instructions: Check blood sugar three times a day insulin glargine 100 unit/mL (3 mL) insulin pen 30 unit SC QAM Qty: 9 3RF methadone 10 mg/5 mL solution 22 mg PO DAILY insulin aspart U-100 [Novolog Flexpen U-100 Insulin] 100 unit/mL (3 mL) insulin pen 5 unit subcut TID Qty: 5 3RF (DME) pen needle, diabetic 31 gauge x 3/16 needle See Rx Instructions .Route Qty: 400 3RF Rx Instructions: Use with insulin pens four times a day atorvastatin 20 mg tablet 20 mg PO DAILY Qty: 90 3RF (DME) lancets [Lancets,Ultra Thin] Misc See Rx Instructions .Route Qty: 400 3RF Rx Instructions: Check blood sugar three times a day gabapentin 100 mg capsule 100 mg PO TID Qty: 90 0RF lorazepam 1 mg tablet 1 mg PO DAILY PRN (Reason: anxiety) Qty: 10 0RF Discharge Instructions Activity:: Activity as Tolerated Equipment/Supplies:: No Equipment Needed Diet:: Carb Counting Discharge Data Discharge Date/Time-TO BE ENTERED AT DEPARTURE: 06/18/22 18:50 DS: Summary Time Spent with Patient providing and/or coordinating discharge services: Greater than 30 minutes Status at Discharge Functional status at discharge: independent ambulation Overall status at discharge: patient is progressing back to baseline Mental Status: mental status grossly normal Speech and Movement: speech clear Mood: congruent mood Affect: normal affect Exam Narrative Exam Narrative: General: Obese female, A&Ox3, cooperative and pleasant. A&O x 3. HEENT: Sclera clear, MMM Cardiovascular: RRR, no murmur Lungs: CTAB Gastrointestinal: soft, nontender, nondistended Extremities: no edema BLEs Psych Mental Status: mental status grossly normal Speech and Movement: speech clear Mood: congruent mood Affect: normal affect DS: Data Vitals/I&O Vitals and I&O: Vital Signs Temperature 36.7 C 06/17/22 10:35 Temperature Source Temporal Artery Scan 06/17/22 10:35 Pulse 64 06/18/22 03:28 Pulse Rhythm Regular 06/18/22 08:23 Pulse 76 06/17/22 10:28 Respiratory Rate 10 L 06/17/22 10:35 Respiratory Effort 06/18/22 08:23 Respiratory Depth Normal 06/18/22 08:23 Respiratory Pattern Normal 06/18/22 08:23 Blood Pressure 160/86 H 06/18/22 03:28 Blood Pressure Mean 106 06/18/22 03:28 Blood Pressure Position Sitting 06/17/22 10:35 Pulse Oximetry 99 06/18/22 03:27 Oxygen Delivery Method Room Air 06/17/22 10:35 Oxygen Flow Rate 0 06/17/22 10:35 Pain Level 0 06/17/22 10:35 Intake & Output 06/17/22 06/18/22 06/18/22 23:59 11:59 23:59 Intake Total 200 / 200 Output Total 2300 / 2300 Balance 200 / -3200 -2300 / -2300 Weight 90.2 kg Intake: IV 50 / 50 Oral 150 / 150 Output: Urine 2300 / 2300 Other: Urine Appearance Clear Stool Size Small Stool Characteristics Hard Data Completed and Pending Labs on day of discharge: Labs from last 24 hours 06/18/22 06/18/22 05:20 05:20 WBC 3.66 L RBC 3.68 L Hgb 10.0 L Hct 31.3 L MCV 85 MCH 27.2 MCHC 31.9 L RDW 15.4 H Plt Count 132 MPV 10.8 Immature Gran % 0.0 Neutrophils % 41.3 Lymphocytes % 46.4 Monocytes % 7.9 Eosinophils % 4.1 Basophils % 0.3 Nucleated RBC % 0.0 Absolute Neutrophils 1.51 Absolute Lymphocytes 1.70 Absolute Monocytes 0.29 Absolute Eosinophils 0.15 Absolute Basophils 0.01 Sodium 141 Potassium 3.7 Chloride 107 Carbon Dioxide 28.7 Anion Gap 5.3 BUN 18 Creatinine 0.9 Est GFR (CKD-EPI 2020) 76.92 Glucose 226 H Calcium 8.7 Magnesium 2.0 Preliminary micro results at discharge 06/14/22 08:12 Blood Culture - Preliminary Blood Gram Positive Cocci 06/14/22 22:00 Blood Culture - Preliminary Blood NO GROWTH 72 HOURS PFSH All Active Problems (Updated 07/20/22 @ 20:54 by Xin Stern NP) DKA (diabetic ketoacidosis) (Acute ~05/2022) Multiple hospital admissions for this over the years secondary to noncompliance with medications Suicide attempt (Chronic ~05/2022) Helicobacter pylori gastritis (Chronic ~05/2022) Schizophrenia (Chronic) Opioid use disorder, severe, on maintenance therapy (Chronic) Methadone through [facility] Type 2 diabetes mellitus with retinopathy, with long-term current use of insulin (Acute) Non compliance with medical treatment (Chronic) Hypertension (Chronic) Hyperlipemia (Chronic) Panic disorder (Chronic) Generalized anxiety disorder (Chronic) PTSD (post-traumatic stress disorder) (Chronic) Depressive disorder (Chronic) COPD (chronic obstructive pulmonary disease) (Chronic) Cigarette smoker (Chronic) Nausea (Chronic) Chronic nausea-occasional use of generic Zofran. She knows to use this sparingly-aware of side effects potentially with methadone Ventral hernia without obstruction or gangrene (Acute) Medical History (Updated 07/20/22 @ 20:54 by Xin Stern NP) Alcohol dependence in remission Diabetic nephropathy (02/01/15) Social History Smoking/Tobacco Use Status: Unknown Smoking risk assessment performed?: Yes Alcohol Intake: current Alcohol Intake frequency: 0-2 drinks per day Drug use: Current Sobriety Substance use type: does not use Details: drank twisted tea today Current gender identity: female Do you feel safe at home: Yes Do you feel safe in your relationship?: Yes Additional Social history: Ms. Higginbotham has a significant other in the form of a boyfriend. Her only child, a son, reportedly over the last 1 1/2 years. Continued tobacco use. 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 Intermitted EtOH use.
--- NOTE | 2022-06-18 22:56 | PDOC.MHPN2 ---
Date of service: 06/18/22
--- NOTE | 2022-06-21 16:58 | CMPROGNOTE_ITS ---
- If Service Date Differs Date of service: 06/21/22 Care Management Progress Note Post discharge F/U call from Dwayne at [facility]: reporting inability to connect with patient as phone numbers listed are no longer in service. CM called medical records, and [facility] to find contact information gathered during safety planning upon discharge. DERRICK Pritchard provided following contact info: Home: CM noticed [facility] note stating inability to connect with patient. Notified [facility] of updated contact information for outreach, to ensure patient needs are being met and coordinated post discharge. CM notified Dwayne [facility] RN of contact information as well. CM provided updated information to [facility] with request to update patient chart. [facility] Contact: Dwayne Merritt RN, BSN Nurse Speech And Language SpecialistInternational Project Engineer of Human Services [facility] [address], [place] [address] C: O: F: Email: [email or web address]
--- NOTE | 2022-06-21 16:58 | PDOC.CMPRO ---
- If Service Date Differs Date of service: 06/21/22 Care Management Progress Note Post discharge F/U call from Dwayne at [facility]: reporting inability to connect with patient as phone numbers listed are no longer in service. CM called medical records, and [facility] to find contact information gathered during safety planning upon discharge. DERRICK Pritchard provided following contact info: Home: CM noticed [facility] note stating inability to connect with patient. Notified [facility] of updated contact information for outreach, to ensure patient needs are being met and coordinated post discharge. CM notified Dwayne [facility] RN of contact information as well. CM provided updated information to [facility] with request to update patient chart. [facility] Contact: Dwayne Merritt RN, BSN Nurse Senior Resident Care DirectorJob Lithographer of Human Services [facility] [address], [place] [address] C: O: F: Email: [email or web address]
== END 2022-06-18 18:50 | disposition home or self-care (01) | DRG 638 ==
LOC: ER 16:05 → ICU 17:44
PROVIDERS: Admitting Provider Internal Medicine; Emergency Provider Nurse Practitioner Family; PCP Nurse Practitioner Family; Visit Provider Internal Medicine
DX: E11.10 Type 2 diabetes mellitus with ketoacidosis without coma (principal); F11.20 Opioid dependence, uncomplicated; F20.81 Schizophreniform disorder; F10.20 Alcohol dependence, uncomplicated; E86.0 Dehydration; R50.9 Fever, unspecified; K29.60 Other gastritis without bleeding; B96.81 Helicobacter pylori [H. pylori] as the cause of diseases classified elsewhere; Z79.4 Long term (current) use of insulin; T38.3X6A Underdosing of insulin and oral hypoglycemic [antidiabetic] drugs, initial encounter; I95.9 Hypotension, unspecified; E78.5 Hyperlipidemia, unspecified; I10 Essential (primary) hypertension; E11.21 Type 2 diabetes mellitus with diabetic nephropathy; J44.9 Chronic obstructive pulmonary disease, unspecified; F32.A Depression, unspecified; F41.0 Panic disorder [episodic paroxysmal anxiety]; F43.10 Post-traumatic stress disorder, unspecified; Z91.128 Patient's intentional underdosing of medication regimen for other reason; T14.91XA Suicide attempt, initial encounter; X83.8XXA Intentional self-harm by other specified means, initial encounter
CPT/HCPCS: 36415; 36416; 36592; 76942; 80048; 80053; 82805; 82962; 84145; 85027; 87040; 87077; 87081; 87635; 96361; 96365; 96366; 96375; 96376; 99291; 71045; 80320; 81003; 83605; 83735; 84484; 85025; 85049; 87086; 87186; 99232; J2405; J2543; J3480; J3490; J8597